=== PATIENT | female | born 1960 | race African-American/Black ===

== ENCOUNTER → 2016-08-28 | Outpatient (CLI) | payer OTHER ==
[~2016-08-28] MED LIST: BRIM0.15 OPB; LATA0.009 OPB; MULT-506 PO; ONDA8TAB7 PO; POLYCAP4 PO; PROC1TAB5 PO; TYLOTC500 PO; VTMD PO; VTMD1000 PO; XLD/500 PO
--- NOTE | 2016-08-28 16:40 | MAMMOGRAPHY REPORT ---
BILATERAL DIGITAL SCREENING MAMMOGRAM TOMOSYNTHESIS WITH CAD: 08/28/2016 CLINICAL HISTORY: Routine screening. Patient has no complaints. TECHNIQUE: Breast tomosynthesis in addition to standard 2D mammography was performed. Current study was also evaluated with a Computer Aided Detection (CAD) system. COMPARISON: No prior exams were available for comparison. BREAST COMPOSITION: There are scattered areas of fibroglandular density in both breasts. FINDINGS: No suspicious masses, calcifications, or areas of architectural distortion are noted in e ither breast. A few scattered bilateral benign-appearing calcifications are noted. An asymmetry se en within the right lateral breast on the cc view has the appearance of normal fibroglandular tissue on the tomosynthesis images as well as on the MLO view. IMPRESSION: ACR BI-RADS CATEGORY 2: BENIGN There is no mammographic evidence of malignancy. A 1 year screening mammogram is recommended. The p atient will receive written notification of the results. Approximately 10% of breast cancers are not detected with mammography. A negative mammographic repor t should not delay biopsy if a clinically suggestive mass is present. Rosa Mata M.D. ah/:08/28/2016 15:10:47 Environmental Coordinator: Varsha OWUSU(R)(M), [facility] letter sent: Normal 1/2 BI-RADS Code: ACR BI-RADS Category 2: Benign
== END | disposition home or self-care (01) ==
LOC: C.MAMM 12:59
PROVIDERS: ATTEND Family Medicine
DX: Z12.31 Encounter for screening mammogram for malignant neoplasm of breast (principal)

== ENCOUNTER → 2016-11-05 | Outpatient (CLI) | payer OTHER ==
[2016-11-05 12:41] LABS: ESTIMATED AVERAGE GLUCOSE 154 mg/dl; HA1C FLAG Normal (Normal)
== END | disposition home or self-care (01) ==
LOC: C.LABSPEC 10:16
PROVIDERS: ATTEND Family Medicine
DX: E11.9 Type 2 diabetes mellitus without complications (principal)

== ENCOUNTER → 2017-01-02 | Outpatient (CLI) | payer OTHER ==
[~2017-01-02] MED LIST changes: +OPTIRAY 320 IV PRN
--- NOTE | 2017-01-02 13:16 | DIAGNOSTIC IMAGING REPORT ---
ABDOMEN AND PELVIS CT WITH IV AND ORAL CONTRAST CT DOSE: HISTORY: Appendiceal carcinoma APPENDIX CA F/U TECHNIQUE: Multiaxial CT images of the abdomen and pelvis were performed following the use of intravenous and oral contrast. COMPARISON STUDY: 08/08/2016 FINDINGS: Lung bases remain clear. Liver continues to show a component of central biliary ductal distention as well as several peripheral low-density curvilinear lesions at the hepatic surface. All findings are unchanged. Spleen remains mildly enlarged. The lesion of the posterior margin of the spleen remains essentially unchanged. Continues to have a central calcification. Postoperative changes are again noted in the midline and peripancreatic region. Moderate wall thickening of the mid to distal aspect of the stomach is similar. Postoperative changes consistent with a cholecystectomy, subtotal colectomy, and right lower quadrant ostomy are again noted. The ostomy appears widely patent. Bladder is midline. Pelvic surgical clips are present. There has been no interval change compared to the prior study. Findings of IMPRESSION: Stable evaluation of the abdomen and pelvis. Stable postoperative change. Several low density peritoneal lesions which have been described previously. These are unchanged and nonprogressive. Electronically signed by: Ayush Simons M.D. 01/02/2017 1:14 PM Dictated Date/Time: 01/02/2017 1:07 PM
--- NOTE | 2017-01-02 13:26 | DIAGNOSTIC IMAGING REPORT ---
CT OF THE CHEST WITH IV CONTRAST CLINICAL HISTORY: Appendiceal carcinoma. COMPARISON STUDY: Chest CT August 08, 2016 TECHNIQUE: Following IV administration of 118 mL of Optiray-320, helical axial images of the chest were obtained. Images were viewed in the axial, sagittal and coronal planes. IV contrast was administered without complication. CT DOSE: 424.83 mGy.cm FINDINGS: No enlarged axillary, mediastinal or hilar lymph nodes are present. There is no pericardial effusion. Mild cardiomegaly is noted. There are no suspicious pulmonary nodules. A 3 mm subpleural right upper lobe nodule on image 96 of 256 is unchanged since prior exams. This is benign. Groundglass left lower lobe opacity reflects atelectasis. The abdomen and pelvis will be reported separately. IMPRESSION: No evidence of metastatic disease within the chest. Electronically signed by: Dillan Buckley M.D. 01/02/2017 1:25 PM Dictated Date/Time: 01/02/2017 1:07 PM
== END | disposition home or self-care (01) ==
LOC: C.CTS 10:28
PROVIDERS: ATTEND Internal Medicine Hematology & Oncology
DX: Z85.89 Personal history of malignant neoplasm of other organs and systems (principal)

== ENCOUNTER → 2018-01-07 | Outpatient (CLI) | payer OTHER ==
[~2018-01-07] MED LIST changes: -OPTIRAY 320 IV PRN; +PROC10TA PO; -PROC1TAB5 PO
[2018-01-07 14:54] LABS: HEMATOCRIT 38.3 % (37-47); HEMOGLOBIN 12.1 g/dL (12.0-16.0); MEAN CORPUSCULAR HEMOGLOBIN 25.9 pg (25-34); RED CELL DISTRIBUTION WIDTH CV 16.3 % (11.5-14.5); RED CELL DISTRIBUTION WIDTH SD 49.2 fL (36.4-46.3); WHITE BLOOD COUNT 4.42 K/uL (4.8-10.8)
[2018-01-07 15:04] LABS: ALBUMIN 3.5 gm/dl (3.4-5.0); ALKALINE PHOSPHATASE 282 U/L (45-117); ALT/SGPT 22 U/L (12-78); AST/SGOT 26 U/L (15-37); BLOOD UREA NITROGEN 11 mg/dl (7-18); CALCIUM 8.6 mg/dl (8.5-10.1); CARBON DIOXIDE 26 mmol/L (21-32); CREATININE 1.18 mg/dl (0.60-1.20); GLUCOSE 133 mg/dl (70-99); POTASSIUM 3.8 mmol/L (3.5-5.1); SODIUM 137 mmol/L (136-145)
[2018-01-07 15:31] LABS: BASO % 0.5 %; BASO ABS # 0.02 K/uL (0-0.2); EOS % 5.2 %; EOS ABS # 0.22 K/uL (0-0.5); IG# 0.01 K/uL (0.00-0.02); LYMPH % 29.1 %; LYMPH ABS # 1.23 K/uL (1.2-3.4); MEAN CORPUSCULAR HGB CONC 31.6 g/dl (32-36); MEAN PLATELET VOLUME 10.1 fL (7.4-10.4); MONO % 13.5 %; MONO ABS # 0.57 K/uL (0.11-0.59); NEUT % 51.5 %; NEUT ABS # 2.17 K/uL (1.4-6.5); PLATELET COUNT 85 K/uL (130-400)
== END | disposition home or self-care (01) ==
LOC: C.LABSPEC 14:23
PROVIDERS: ATTEND Internal Medicine Hematology & Oncology
DX: C18.1 Malignant neoplasm of appendix (principal)

== ENCOUNTER → 2018-03-10 | Outpatient (CLI) | payer OTHER ==
[2018-03-10 10:12] LABS: MEAN CORPUSCULAR HGB CONC 31.2 g/dl (32-36)
[2018-03-10 10:31] LABS: ALBUMIN 3.7 gm/dl (3.4-5.0); ALKALINE PHOSPHATASE 272 U/L (45-117); ALT/SGPT 24 U/L (12-78); AST/SGOT 29 U/L (15-37); BLOOD UREA NITROGEN 18 mg/dl (7-18); CALCIUM 9.1 mg/dl (8.5-10.1); CARBON DIOXIDE 26 mmol/L (21-32); GLUCOSE 116 mg/dl (70-99); POTASSIUM 4.3 mmol/L (3.5-5.1); SODIUM 138 mmol/L (136-145); TOTAL PROTEIN 8.2 gm/dl (6.4-8.2)
[2018-03-10 10:38] LABS: HEMATOCRIT 39.8 % (37-47); HEMOGLOBIN 12.4 g/dL (12.0-16.0); MEAN CELL VOLUME 82.9 fL (80-100); MEAN CORPUSCULAR HEMOGLOBIN 25.8 pg (25-34); RED CELL DISTRIBUTION WIDTH SD 48.5 fL (36.4-46.3); WHITE BLOOD COUNT 4.57 K/uL (4.8-10.8)
[2018-03-10 10:40] LABS: PLATELET COUNT 73 K/uL (130-400)
[2018-03-10 10:41] LABS: BASO % 0.4 %; BASO ABS # 0.02 K/uL (0-0.2); EOS % 5.5 %; EOS ABS # 0.25 K/uL (0-0.5); IG# 0.01 K/uL (0.00-0.02); LYMPH % 27.8 %; LYMPH ABS # 1.27 K/uL (1.2-3.4); MONO % 12.3 %; MONO ABS # 0.56 K/uL (0.11-0.59); NEUT % 53.8 %; NEUT ABS # 2.46 K/uL (1.4-6.5)
== END | disposition home or self-care (01) ==
LOC: C.LABSPEC 09:53
PROVIDERS: ATTEND Internal Medicine Hematology & Oncology
DX: C18.1 Malignant neoplasm of appendix (principal)

== ENCOUNTER → 2018-03-30 | Outpatient (CLI) | payer OTHER ==
[2018-03-30 09:38] LABS: MEAN CORPUSCULAR HGB CONC 30.7 g/dl (32-36)
[2018-03-30 09:48] LABS: HEMATOCRIT 38.1 % (37-47); HEMOGLOBIN 11.7 g/dL (12.0-16.0); MEAN CELL VOLUME 83.7 fL (80-100); MEAN CORPUSCULAR HEMOGLOBIN 25.7 pg (25-34); RED CELL DISTRIBUTION WIDTH SD 48.9 fL (36.4-46.3); WHITE BLOOD COUNT 3.45 K/uL (4.8-10.8)
[2018-03-30 09:57] LABS: PLATELET COUNT 83 K/uL (130-400)
[2018-03-30 09:59] LABS: BASO % 0.3 %; BASO ABS # 0.01 K/uL (0-0.2); EOS % 8.4 %; EOS ABS # 0.29 K/uL (0-0.5); LYMPH % 30.4 %; LYMPH ABS # 1.05 K/uL (1.2-3.4); MONO % 13.3 %; MONO ABS # 0.46 K/uL (0.11-0.59); NEUT % 47.6 %; NEUT ABS # 1.64 K/uL (1.4-6.5)
[2018-03-30 10:00] LABS: ALBUMIN 3.4 gm/dl (3.4-5.0); ALKALINE PHOSPHATASE 301 U/L (45-117); ALT/SGPT 25 U/L (12-78); AST/SGOT 30 U/L (15-37); BLOOD UREA NITROGEN 14 mg/dl (7-18); CALCIUM 8.5 mg/dl (8.5-10.1); CARBON DIOXIDE 25 mmol/L (21-32); CREATININE 1.16 mg/dl (0.60-1.20); GLUCOSE 128 mg/dl (70-99); POTASSIUM 4.2 mmol/L (3.5-5.1); SODIUM 137 mmol/L (136-145); TOTAL PROTEIN 7.9 gm/dl (6.4-8.2)
== END | disposition home or self-care (01) ==
LOC: C.LABSPEC 08:56
PROVIDERS: ATTEND Internal Medicine Hematology & Oncology
DX: C18.1 Malignant neoplasm of appendix (principal)

== ENCOUNTER 2019-05-13 19:58 | Inpatient (IN) ==
[2019-05-13] MEDS ORDERED: TRANEXAMIC ACID 10% SOLN for EPISTAXIS TOP ONE ×2 (21:30→21:45)
[2019-05-13 21:45] LABS: Albumin Level 3.3 gm/dl (3.4-5.0); BUN Creatinine Ratio 11.2 (10-20); Calcium 9.2 mg/dl (8.5-10.1); Creatinine Clr Calc Pharmacy 41.8 ml/min; Est GFR (African American) 55.3; Est GFR (Non-African American) 47.7; Potassium 3.8 mmol/L (3.5-5.1)
[2019-05-13 21:48] LABS: Albumin Globulin Ratio 0.7 (0.9-2); Bilirubin,Total 0.7 mg/dl (0.2-1); Globulin 4.6 gm/dl (2.5-4.0); Total Protein 7.9 gm/dl (6.4-8.2)
[2019-05-13 21:50] LABS: Partial Thromboplastin Ratio 1.4; Partial Thromboplastin Time 38.7 Seconds (21.0-31.0); Prothrombin Time 10.4 Seconds (9.0-12.0)
[2019-05-13 22:13] LABS: Basophils # (auto) 0.01 K/uL (0-0.2); Basophils % (auto) 0.4 %; Hematocrit (blood only) 36.4 % (37-47); Hemoglobin 11.4 g/dL (12.0-16.0); Immature Granulocytes # (auto) 0.01 K/uL (0.00-0.02); Immature Granulocytes % (auto) 0.4 %; Lymphocytes # (auto) 0.38 K/uL (1.2-3.4); Mean Corpuscular Hemoglobin 25.7 pg (25-34); Mean Corpuscular Hgb Conc 31.3 g/dL (32-36); Monocytes # (auto) 0.04 K/uL (0.11-0.59); Monocytes % (auto) 1.5 %; Neutrophils # (auto) 2.27 K/uL (1.4-6.5); Neutrophils % (auto) 83.7 %; Platelet Count 3 K/uL (130-400); Platelet Estimate SIGNIFIC DECREASED (Normal); RDW Coefficient of Variation 17.3 % (11.5-14.5); Red Blood Count 4.44 M/uL (4.2-5.4); White Blood Count 2.71 K/uL (4.8-10.8)
[2019-05-13] MEDS ORDERED: SODIUM CHLORIDE 0.9% 250 ML IV PRN (22:57)
--- NOTE | 2019-05-14 00:19 | History & Physical Report ---
Date of Service May 14, 2019 Assessment & Plan (1) Thrombocytopenia: 58 yo F here with symptomatic thrombocytopenia - hemodynamically stable, normotensive, afebrile. Here for transfusion and monitoring. 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 (2) Stomal bleeding: History of Present Illness Chief Complaint: thrombocytopenia, bleeding from stoma Primary Care Provider: Robert Hernández 58 yo F on maintenance chemotherapy for appendiceal cancer here for abnormal lab value of platelets of 2-3. Also with bleeding from her stoma. Began yesterday. Sent here from cancer center, is currently on course of decadron as well. Tranexamic acid applied topically to stoma with good effect. Labs otherwise remarkable for anemia at baseline, inr 1.0, On Awake Counselor 1.25 (baseline is 1.03). Allergies Allergy/AdvReac Type Severity Reaction Status Date / Time pineapple Allergy Severe anaphylaxis Verified 05/13/19 23:08 [place] And Derivatives Allergy Intermediate Hives Verified 05/13/19 23:08 clarithromycin Allergy Intermediate HIVES Verified 05/13/19 23:08 naproxen Allergy Intermediate Hives Verified 05/13/19 23:08 Penicillins Allergy Intermediate Hives Verified 05/13/19 23:08 tomato Allergy Intermediate HIVES, Verified 05/13/19 23:08 THROAT TIGHTENS latex Allergy Mild RASH Verified 05/13/19 23:08 Cantaloupe Allergy Intermediate HIVES, Uncoded 05/13/19 23:08 THROAT TIGHTENS Home Medications Home Medications Medication Instructions Recorded Confirmed Type Unknown Chemo Drugs 1 dose IV DIRECTED 05/12/19 05/13/19 History acetaminophen [Tylenol Extra 1,000 mg PO DIRECTED PRN 05/12/19 05/13/19 History Strength] brimonidine [Alphagan P] 1 drp OPB TID 05/12/19 05/13/19 History cholecalciferol (vitamin D3) 2,000 unit PO DAILY 05/12/19 05/13/19 History [Vitamin D3] latanoprost 1 drp OPB HS 05/12/19 05/13/19 History multivitamin 1 tab PO DAILY 05/12/19 05/13/19 History ondansetron HCl [Zofran] 8 mg PO DIRECTED PRN 05/12/19 05/13/19 History polysaccharide iron complex 150 mg PO DAILY 05/12/19 05/13/19 History [iFerex 150] prochlorperazine maleate 10 mg PO Q6H PRN 05/12/19 05/13/19 History [Compazine] dexamethasone 40 mg PO QDB 05/13/19 05/13/19 History Past Med/Surg History Medical History Stomal bleeding (Acute) High cholesterol (Chronic) Hypomagnesemia (Chronic) Ileostomy care (Acute) Mucinous adenocarcinoma of appendix (Chronic ~03/2013) Pancreatitis (Acute) Primary cancer of appendix Surgical History Hx of colectomy (Resolved) Social History Preferred Language: [place] Communication Ability: Effective Event Attendant Required: No Beliefs That Will Affect Care: [employer] Current Living Situation: Family Current Living Situation Comment: lives with son Other Information That Helps Us Care for You: No Feels Safe at Home: Yes Safety Concerns: Feels Safe At This Time Smoking Status: Never smoker Do You Dip or Chew Tobacco: No ; Second Hand Exposure: No ; Tobacco Cessation Education Requested by Patient: No Hx Alcohol Use: No Hx Substance Use: No Review of Systems Review of Systems: All systems reviewed & are unremarkable except as noted in HPI & below pt does not endorse pain at her stoma or in her abdomen, denies bleeding elsewhere inc melena/hematuria/hematochezia or bloody emesis, says she otherwise is feeling well. Physical Exam Physical Exam: Vitals noted and reviewed, as above GENERAL: sitting up in bed, no acute distress HEAD: normocephalic atraumatic, MMM ENT: sclerae normal, trachea midline RESP: normal work of breathing, acyanotic, clear breath sounds CV: regular rate and rhythm, no rubs or gallops ABDOMEN: nondistended, some mild oozing from stoma with dressing in tact SKIN: no rashes or jaundice PSYCH: appropriate mood and affect Results & Data Vital Signs (Past 12 Hours) Vital Signs Temp Pulse Resp BP Pulse Ox 05/13/19 23:58 36.7 C 69 22 157/88 H 100 05/13/19 23:30 72 20 163/93 H 100 05/13/19 23:00 74 23 153/93 H 05/13/19 22:50 78 25 H 100 05/13/19 22:40 67 21 100 05/13/19 22:30 67 19 147/86 H 99 05/13/19 22:20 68 20 99 05/13/19 22:10 73 17 99 05/13/19 22:00 75 21 156/94 H 100 05/13/19 21:50 71 26 H 100 05/13/19 21:40 72 21 100 05/13/19 21:31 79 16 162/84 H 100 05/13/19 21:30 82 24 100 05/13/19 21:20 84 20 99 05/13/19 21:10 78 24 100 05/13/19 21:00 74 21 149/91 H 05/13/19 20:50 79 22 100 05/13/19 20:46 78 21 99 05/13/19 20:43 76 21 168/91 H 99 05/13/19 20:09 36.7 C 87 18 164/85 H 98 Laboratory Results 05/13/19 05/13/19 05/13/19 Range/Units 21:29 20:46 20:46 WBC (4.8-10.8) K/uL RBC (4.2-5.4) M/uL Hgb (12.0-16.0) g/dL Hct (37-47) % MCV (80-100) fL MCH (25-34) pg MCHC (32-36) g/dL RDW Std Deviation (36.4-46.3) fL RDW Coeff of Veda (11.5-14.5) % Plt Count (130-400) K/uL Immature Gran % (Auto) % Neut % (Auto) % Lymph % (Auto) % [place] % (Auto) % Eos % (Auto) % Baso % (Auto) % Immature Gran # (Auto) (0.00-0.02) K/uL Neut # (Auto) (1.4-6.5) K/uL Lymph # (Auto) (1.2-3.4) K/uL [place] # (Auto) (0.11-0.59) K/uL Eos # (Auto) (0-0.5) K/uL Baso # (Auto) (0-0.2) K/uL Platelet Estimate (Normal) PT 10.4 (9.0-12.0) Seconds INR 1.0 (0.9-1.1) APTT 38.7 H (21.0-31.0) Seconds PTT Ratio 1.4 Sodium 139 (136-145) mmol/L Potassium 3.8 (3.5-5.1) mmol/L Chloride 107 (98-107) mmol/L Carbon Dioxide 24 (21-32) mmol/L Anion Gap 8.0 (3-11) BUN 14 (7-18) mg/dl Creatinine 1.25 H (0.6-1.2) mg/dl Est Cr Clr Drug Dosing 41.8 ml/min Est GFR ( Amer) 55.3 Est GFR (Non-Af Amer) 47.7 BUN/Creatinine Ratio 11.2 (10-20) Glucose 299 H (70-99) mg/dl Calcium 9.2 (8.5-10.1) mg/dl Total Bilirubin 0.7 (0.2-1) mg/dl AST 30 (15-37) U/L ALT 21 (12-78) U/L Alkaline Phosphatase 333 H (45-117) U/L Total Protein 7.9 (6.4-8.2) gm/dl Albumin 3.3 L (3.4-5.0) gm/dl Globulin 4.6 H (2.5-4.0) gm/dl Albumin/Globulin Ratio 0.7 L (0.9-2) Blood Type Pending Antibody Screen Pending 05/13/19 Range/Units 20:46 WBC 2.71 L (4.8-10.8) K/uL RBC 4.44 (4.2-5.4) M/uL Hgb 11.4 L (12.0-16.0) g/dL Hct 36.4 L (37-47) % MCV 82.0 (80-100) fL MCH 25.7 (25-34) pg MCHC 31.3 L (32-36) g/dL RDW Std Deviation 52.0 H (36.4-46.3) fL RDW Coeff of Veda 17.3 H (11.5-14.5) % Plt Count 3 L* (130-400) K/uL Immature Gran % (Auto) 0.4 % Neut % (Auto) 83.7 % Lymph % (Auto) 14.0 % [place] % (Auto) 1.5 % Eos % (Auto) 0.0 % Baso % (Auto) 0.4 % Immature Gran # (Auto) 0.01 (0.00-0.02) K/uL Neut # (Auto) 2.27 (1.4-6.5) K/uL Lymph # (Auto) 0.38 L (1.2-3.4) K/uL [place] # (Auto) 0.04 L (0.11-0.59) K/uL Eos # (Auto) 0.00 (0-0.5) K/uL Baso # (Auto) 0.01 (0-0.2) K/uL Platelet Estimate SIGNIFIC DECREASED (Normal) PT (9.0-12.0) Seconds INR (0.9-1.1) APTT (21.0-31.0) Seconds PTT Ratio Sodium (136-145) mmol/L Potassium (3.5-5.1) mmol/L Chloride (98-107) mmol/L Carbon Dioxide (21-32) mmol/L Anion Gap (3-11) BUN (7-18) mg/dl Creatinine (0.6-1.2) mg/dl Est Cr Clr Drug Dosing ml/min Est GFR ( Amer) Est GFR (Non-Af Amer) BUN/Creatinine Ratio (10-20) Glucose (70-99) mg/dl Calcium (8.5-10.1) mg/dl Total Bilirubin (0.2-1) mg/dl AST (15-37) U/L ALT (12-78) U/L Alkaline Phosphatase (45-117) U/L Total Protein (6.4-8.2) gm/dl Albumin (3.4-5.0) gm/dl Globulin (2.5-4.0) gm/dl Albumin/Globulin Ratio (0.9-2) Blood Type Antibody Screen Medications Administered Current Inpatient Medications Sodium Chloride (Nss) 250 mls @ 15 mls/hr IV .[id number] PRN PRN Reason: For Transfusion Stop: 06/12/19 22:56 Supervising Physician Co-Signing Physician Notes Attending addendum: I have physically seen this patient, have supervised the medical residents activities, and agree with the H&P unless as otherwise noted. Assessment and Plan: Stomal oozing/secondary to severe thrombocytopenia- Admit to monitored bed. Platelets 3 upon admission. Plan to transfuse 2 units now, and repeat laboratories 1 hour later. Consult hematology/oncology. Follow H&H serially, patient does not appear to need PRBCs at this time. Remainder of orders and notations as noted. PG Care Time/CCT Total # of Minutes Spent Total Time Spent with Patient: Total time spent is greater than 50% in coordination of care (as documented) at patient's floor/unit and/or counseling patient: Resident Activity Tracking Resident Involvement: Resident Care Provided Care Provided: Adult Hospital Medicine
--- NOTE | 2019-05-14 01:06 | Emergency Department Note ---
Entered by Coretta Galvez acting as a scribe for Abdiaziz Dyer M.D. History of Present Illness General Chief complaint: Bleeding Stated complaint: STOMA BLEEDING, VERY LOW PLATELETS Source: patient History of Present Illness Onset (ago): day(s) 1 Location: abdomen and right Pain Consistency: + constant Associated symptoms: + denies other symptoms (denies abdominal pain and recent trauma); no fever/chills and no nausea/vomiting Treatments prior to arrival: other (steriod) The patient is a 58 year old female who presents to the Emergency Room with complaints of bleeding from her ileostomy site in the lower right abdominal quadrant. She reports that the bleeding first started last night. She has a history of cancer of the appendix, and is currently receiving chemotherapy treatment. She was scheduled to receive a dose today, but her nose started bleeding at the appointment and her doctor advised against it. She started a new steroid today as well. She has a low platelet count of 3, which also just started yesterday. She denies nausea, vomiting, fever, abdominal pain and recent trauma. Home Medications Home Medications Medication Instructions Recorded Confirmed Type Unknown Chemo Drugs 1 dose IV DIRECTED 05/12/19 05/13/19 History acetaminophen [Tylenol Extra 1,000 mg PO DIRECTED PRN 05/12/19 05/13/19 History Strength] brimonidine [Alphagan P] 1 drp OPB TID 05/12/19 05/13/19 History cholecalciferol (vitamin D3) 2,000 unit PO DAILY 05/12/19 05/13/19 History [Vitamin D3] latanoprost 1 drp OPB HS 05/12/19 05/13/19 History multivitamin 1 tab PO DAILY 05/12/19 05/13/19 History ondansetron HCl [Zofran] 8 mg PO DIRECTED PRN 05/12/19 05/13/19 History polysaccharide iron complex 150 mg PO DAILY 05/12/19 05/13/19 History [iFerex 150] prochlorperazine maleate 10 mg PO Q6H PRN 05/12/19 05/13/19 History [Compazine] dexamethasone 40 mg PO QDB 05/13/19 05/13/19 History Allergies Allergy/AdvReac Type Severity Reaction Status Date / Time pineapple Allergy Severe anaphylaxis Verified 05/13/19 23:08 [place] And Derivatives Allergy Intermediate Hives Verified 05/13/19 23:08 clarithromycin Allergy Intermediate HIVES Verified 05/13/19 23:08 naproxen Allergy Intermediate Hives Verified 05/13/19 23:08 Penicillins Allergy Intermediate Hives Verified 05/13/19 23:08 tomato Allergy Intermediate HIVES, Verified 05/13/19 23:08 THROAT TIGHTENS latex Allergy Mild RASH Verified 05/13/19 23:08 Cantaloupe Allergy Intermediate HIVES, Uncoded 05/13/19 23:08 THROAT TIGHTENS Past Med/Surg History Medical History Stomal bleeding (Acute) High cholesterol (Chronic) Hypomagnesemia (Chronic) Ileostomy care (Acute) Mucinous adenocarcinoma of appendix (Chronic ~03/2013) Pancreatitis (Acute) Primary cancer of appendix Surgical History Hx of colectomy (Resolved) Social History Preferred Language: Danish Feels Safe at Home: Yes Smoking Status: Never smoker Review of Systems See HPI for pertinent positives & negatives. and A total of 10 systems reviewed and were otherwise negative Physical Exam Vital Signs Vital Signs - 24 hr 05/13/19 19:58 05/13/19 20:09 05/13/19 20:43 Temperature 36.7 C Temperature Source Oral Sepsis Recent Fever Within 48 Hours No Sepsis New/Unexplained Change in Mental Status No Sepsis Action Taken by Nursing No Action Required Pulse Rate 87 76 Pulse Rate from SpO2 Sensor 77 Respiratory Rate 18 21 Blood Pressure 164/85 H 168/91 H Blood Pressure Mean 111 116 Blood Pressure Position Pulse Oximetry 98 99 Oxygen Delivery Method Room Air Room Air Oxygen Flow Rate 05/13/19 20:46 05/13/19 20:50 05/13/19 21:00 Temperature Temperature Source Sepsis Recent Fever Within 48 Hours Sepsis New/Unexplained Change in Mental Status Sepsis Action Taken by Nursing Pulse Rate 78 79 74 Pulse Rate from SpO2 Sensor 78 77 75 Respiratory Rate 21 22 21 Blood Pressure 149/91 H Blood Pressure Mean 110 Blood Pressure Position Pulse Oximetry 99 100 100 Oxygen Delivery Method Oxygen Flow Rate 05/13/19 21:10 05/13/19 21:20 05/13/19 21:30 Temperature Temperature Source Sepsis Recent Fever Within 48 Hours Sepsis New/Unexplained Change in Mental Status Sepsis Action Taken by Nursing Pulse Rate 78 84 82 Pulse Rate from SpO2 Sensor 77 84 83 Respiratory Rate 24 20 24 Blood Pressure Blood Pressure Mean Blood Pressure Position Pulse Oximetry 100 99 100 Oxygen Delivery Method Oxygen Flow Rate 05/13/19 21:31 05/13/19 21:40 05/13/19 21:50 Temperature Temperature Source Sepsis Recent Fever Within 48 Hours Sepsis New/Unexplained Change in Mental Status Sepsis Action Taken by Nursing Pulse Rate 79 72 71 Pulse Rate from SpO2 Sensor 80 72 71 Respiratory Rate 16 21 26 H Blood Pressure 162/84 H Blood Pressure Mean 110 Blood Pressure Position Pulse Oximetry 100 100 100 Oxygen Delivery Method Oxygen Flow Rate 05/13/19 22:00 05/13/19 22:10 05/13/19 22:20 Temperature Temperature Source Sepsis Recent Fever Within 48 Hours Sepsis New/Unexplained Change in Mental Status Sepsis Action Taken by Nursing Pulse Rate 75 73 68 Pulse Rate from SpO2 Sensor 75 73 68 Respiratory Rate 21 17 20 Blood Pressure 156/94 H Blood Pressure Mean 114 Blood Pressure Position Pulse Oximetry 100 99 99 Oxygen Delivery Method Oxygen Flow Rate 05/13/19 22:30 05/13/19 22:40 05/13/19 22:50 Temperature Temperature Source Sepsis Recent Fever Within 48 Hours Sepsis New/Unexplained Change in Mental Status Sepsis Action Taken by Nursing Pulse Rate 67 67 78 Pulse Rate from SpO2 Sensor 67 68 78 Respiratory Rate 19 21 25 H Blood Pressure 147/86 H Blood Pressure Mean 106 Blood Pressure Position Pulse Oximetry 99 100 100 Oxygen Delivery Method Oxygen Flow Rate 05/13/19 23:00 05/13/19 23:30 05/13/19 23:58 Temperature 36.7 C Temperature Source Oral Sepsis Recent Fever Within 48 Hours Sepsis New/Unexplained Change in Mental Status Sepsis Action Taken by Nursing Pulse Rate 74 72 69 Pulse Rate from SpO2 Sensor 74 71 Respiratory Rate 23 20 22 Blood Pressure 153/93 H 163/93 H 157/88 H Blood Pressure Mean 113 116 111 Blood Pressure Position Semi-fowlers Pulse Oximetry 100 100 100 Oxygen Delivery Method Room Air Oxygen Flow Rate 0 GENERAL: Awake, alert, in no distress HENT: Normocephalic, atraumatic. EYES: Normal conjunctiva. Sclera non-icteric. RESPIRATORY: Clear to auscultation. No wheezes. Normal respiratory effort. CARDIAC: Right upper chest wall port. Normal rate. Normal rhythm. Extremities warm and well perfused. GI: Right abdominal ileostomy. [place] with mild, diffuse bloody oozing. Non- tender. Healed abdominal surgical scars. Soft, non-distended. No tenderness to palpation. MUSCULOSKELETAL: Atraumatic. Chest examination reveals no tenderness. LOWER EXTREMITIES: Calves are equal size bilaterally and non-tender. No edema NEURO: Normal sensorium. No sensory or motor deficits noted. No facial droop. SKIN: Warm and dry. No jaundice noted. Course 2124: Past medical records reviewed. The patient was evaluated in room C01B. A complete history and physical exam was performed. 2254: I consulted Dr. Carlisle, oncologist, who recommends transfusion for the patient. 2317: I spoke to Dr. Monaco, general surgery. He had no additional recommendations 2329: I contacted Dr. Nava, [facility] hospitalist, who agreed to take over care of the patient. The patient is agreeable to staying for further evaluation. Consultations Consultation #1: I consulted Dr. Carlisle, oncologist, who recommends transfu [place]e for the patient. Time: 22:54 Consultation #2: I spoke to Dr. Monaco, general surgery. He had no additional recommendations Time: 23:17 Consultation #3: I contacted Dr. Nava, [facility] hospitalist, who agreed to take over care of the patient. The patient is agreeable to staying for further evaluation. Time: 23:29 Administered Medications Discontinued Medications Tranexamic Acid (Tranexamic Acid 10% Soln For Epistaxis) 500 mg TOP ONE ONE Stop: 05/13/19 21:46 Last Admin: 05/13/19 22:01 Dose: 500 mg Documented by: [id number] Medical Decision Making Differential Diagnosis Differential diagnosis includes: anemia, thrombocytopenia, infection, ischemia, GI bleed, electrolyte abnormality, trauma, perforation among others were considered. Medical Records Attestation: I reviewed the patient's medical records. Home Medications Current Medication List: was personally reviewed by me Laboratory Data Attestation: I reviewed the patient's lab results. Result diagrams: 05/13/19 20:46 05/13/19 20:46 Lab Results 05/13/19 05/13/19 05/13/19 Range/Units 20:46 20:46 20:46 WBC 2.71 L (4.8-10.8) K/uL RBC 4.44 (4.2-5.4) M/uL Hgb 11.4 L (12.0-16.0) g/dL Hct 36.4 L (37-47) % MCV 82.0 (80-100) fL MCH 25.7 (25-34) pg MCHC 31.3 L (32-36) g/dL RDW Std Deviation 52.0 H (36.4-46.3) fL RDW Coeff of Veda 17.3 H (11.5-14.5) % Plt Count 3 L* (130-400) K/uL Immature Gran % (Auto) 0.4 % Neut % (Auto) 83.7 % Lymph % (Auto) 14.0 % Dewitt % (Auto) 1.5 % Eos % (Auto) 0.0 % Baso % (Auto) 0.4 % Immature Gran # (Auto) 0.01 (0.00-0.02) K/uL Neut # (Auto) 2.27 (1.4-6.5) K/uL Lymph # (Auto) 0.38 L (1.2-3.4) K/uL Dewitt # (Auto) 0.04 L (0.11-0.59) K/uL Eos # (Auto) 0.00 (0-0.5) K/uL Baso # (Auto) 0.01 (0-0.2) K/uL Platelet Estimate SIGNIFIC DECREASED (Normal) PT 10.4 (9.0-12.0) Seconds INR 1.0 (0.9-1.1) APTT 38.7 H (21.0-31.0) Seconds PTT Ratio 1.4 Sodium 139 (136-145) mmol/L Potassium 3.8 (3.5-5.1) mmol/L Chloride 107 (98-107) mmol/L Carbon Dioxide 24 (21-32) mmol/L Anion Gap 8.0 (3-11) BUN 14 (7-18) mg/dl Creatinine 1.25 H (0.6-1.2) mg/dl Est Cr Clr Drug Dosing 41.8 ml/min Est GFR ( Amer) 55.3 Est GFR (Non-Af Amer) 47.7 BUN/Creatinine Ratio 11.2 (10-20) Glucose 299 H (70-99) mg/dl Calcium 9.2 (8.5-10.1) mg/dl Total Bilirubin 0.7 (0.2-1) mg/dl AST 30 (15-37) U/L ALT 21 (12-78) U/L Alkaline Phosphatase 333 H (45-117) U/L Total Protein 7.9 (6.4-8.2) gm/dl Albumin 3.3 L (3.4-5.0) gm/dl Globulin 4.6 H (2.5-4.0) gm/dl Albumin/Globulin Ratio 0.7 L (0.9-2) Blood Type Antibody Screen 05/13/19 Range/Units 21:29 WBC (4.8-10.8) K/uL RBC (4.2-5.4) M/uL Hgb (12.0-16.0) g/dL Hct (37-47) % MCV (80-100) fL MCH (25-34) pg MCHC (32-36) g/dL RDW Std Deviation (36.4-46.3) fL RDW Coeff of Veda (11.5-14.5) % Plt Count (130-400) K/uL Immature Gran % (Auto) % Neut % (Auto) % Lymph % (Auto) % [place] % (Auto) % Eos % (Auto) % Baso % (Auto) % Immature Gran # (Auto) (0.00-0.02) K/uL Neut # (Auto) (1.4-6.5) K/uL Lymph # (Auto) (1.2-3.4) K/uL [place]itt # (Auto) (0.11-0.59) K/uL Eos # (Auto) (0-0.5) K/uL Baso # (Auto) (0-0.2) K/uL Platelet Estimate (Normal) PT (9.0-12.0) Seconds INR (0.9-1.1) APTT (21.0-31.0) Seconds PTT Ratio Sodium (136-145) mmol/L Potassium (3.5-5.1) mmol/L Chloride (98-107) mmol/L Carbon Dioxide (21-32) mmol/L Anion Gap (3-11) BUN (7-18) mg/dl Creatinine (0.6-1.2) mg/dl Est Cr Clr Drug Dosing ml/min Est GFR ( Amer) Est GFR (Non-Af Amer) BUN/Creatinine Ratio (10-20) Glucose (70-99) mg/dl Calcium (8.5-10.1) mg/dl Total Bilirubin (0.2-1) mg/dl AST (15-37) U/L ALT (12-78) U/L Alkaline Phosphatase (45-117) U/L Total Protein (6.4-8.2) gm/dl Albumin (3.4-5.0) gm/dl Globulin (2.5-4.0) gm/dl Albumin/Globulin Ratio (0.9-2) Blood Type B Positive Antibody Screen POSITIVE A Blood Pressure Blood Pressure Findings: Elevated blood pressure Blood Pressure Disposition: further management by hospitalist AUBREY Narrative Patient is a 58-year-old female with past medical history including 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 Presents today due to stomal bleeding. Was seen here last night and had some cautery done which improved her bleeding. Discharged home. Outpatient blood work today showed significant thrombocytopenia with a platelet count of 3. Patient states that she did not receive chemotherapy today becuase of her low platelet count. Follows with Dr. Finn locally. Had a episode of nosebleeding that has stopped. Dr. Finn started on high-dose dexamethasone today for the thrombocytopenia with this nose bleed. No recent transfusion. Patient states over the last several hours noted increased bleeding from around her ileostomy site in her right mid abdomen. No trauma. On exam there is no one focal area of bleeding noted. Appears fairly diffuse around the mucosal insertion. Does not appear to be coming from inside the ileostomy itself. Patient is nontender here and it is pink and healthy in appearance. Denies any fever or nausea or vomiting. Believe this is likely more of a sequelae of her thrombocytopenia. Did try some topical TXA to see if this would help control the bleeding. Gauze soaked TXA was placed over and around the ileostomy site for 30 minutes. After this the gauze was removed and hemostasis seemed to be achieved. After several minutes however, there was continued oozing from the site. Some gauze was replaced around this. Discussed with both hematology oncology Dr. Dozier and general surgery Dr. Owen for additional recommendations. I doubt this again this is acutely a GI bleed or necrosis of the ileostomy site itself. Dr. Gonsalez recommended transfusion and the patient was consented to her the platelets were ordered. Surgery had no other specific recommendations as there is no focal site of bleeding that could be ligated at this point. Feel that continued observation for transfusion and monitoring of her condition site bruising is recommended and discussed with the hospitalist. Hemoglobin appears fairly stable. Impression & Plan Thrombocytopenia, Hemorrhage from ileostomy Critical Care Time Critical Care Time: Yes Total Critical Care Time: 38 I have personally spent 38 minutes of critical care time in the direct management of this patient. This includes bedside care, interpretation of diagnostic studies, and testing, discussion with consultants, patient, and family members, and other required patient management activities. This 38 minutes is in excess of all separately billable procedures. Discharge Plan Visit Data *Final* Discharge Date/Time: 05/14/19 00:37 Chief Complaint: Bleeding Stated Complaint: STOMA BLEEDING, VERY LOW PLATELETS ED Provider: Abdiaziz Dyer Discharge Problem: Thrombocytopenia, Hemorrhage from ileostomy Patient Disposition: Admitted As Inpatient Discharge Instructions Interventions: ED Discharge Assessment Last Done: 05/14/19 00:37 The scribe's documentation has been prepared under my direction and personally reviewed by me in its entirety. I confirm that the note above accurately reflects all work, treatment, procedures, and medical decision making performed by me.
[2019-05-14] MEDS ORDERED: PROCHLORPERAZINE MALEATE 10 MG TAB PO PRN (01:25)
[2019-05-14] MEDS ORDERED: [UNRECOGNIZED DRUG - OTHER] IV SCH (01:25)
[2019-05-14] MEDS ORDERED: ALUMINUM/MAGNESIUM SUSP 30 ML UDC PO PRN (01:25)
[2019-05-14] MEDS ORDERED: ACETAMINOPHEN 500 MG TAB PO PRN (01:25)
[2019-05-14] MEDS ORDERED: POLYETHYLENE (MIRALAX) 17 GM PACK PO PRN (01:25)
[2019-05-14] MEDS ORDERED: MAGNESIUM HYDROXIDE SUSP 30 ML UDC PO PRN (01:25)
[2019-05-14] MEDS ORDERED: ZOLPIDEM TARTRATE 5 MG TAB PO PRN (01:25)
[2019-05-14] MEDS ORDERED: ONDANSETRON 8 MG TABLET PO PRN (01:25)
[2019-05-14] MEDS ORDERED: SODIUM CHLORIDE 0.9% 250 ML IV PRN (02:37)
[2019-05-14] MEDS: ONDANSETRON INJ 2 MG/ML 2 ML VIAL IV PRN (05:37)
[2019-05-14] MEDS: dexAMETHasone 4 MG TAB PO SCH (08:27)
[2019-05-14] MEDS: MULTIVITAMIN TAB PO SCH (08:30)
[2019-05-14] MEDS: IRON POLYSACCHARIDE COMPLEX 150 MG CAPSULE PO SCH (08:30)
[2019-05-14] MEDS: CHOLECALCIFEROL 1,000 UNITS TAB PO SCH (08:31)
[2019-05-14 09:20] LABS: BUN Creatinine Ratio 15.6 (10-20); Calcium 9.3 mg/dl (8.5-10.1); Creatinine Clr Calc Pharmacy 50.5 ml/min; Est GFR (African American) 69.9; Est GFR (Non-African American) 60.3; Mean Corpuscular Hgb Conc 31.5 g/dL (32-36); Platelet Count 4 K/uL (130-400); Potassium 3.8 mmol/L (3.5-5.1)
[2019-05-14 09:21] LABS: Hematocrit (blood only) 31.1 % (37-47); Hemoglobin 9.8 g/dL (12.0-16.0); Immature Granulocytes # (auto) 0.02 K/uL (0.00-0.02); Immature Granulocytes % (auto) 0.2 %; Lymphocytes # (auto) 0.37 K/uL (1.2-3.4); Mean Corpuscular Hemoglobin 25.5 pg (25-34); Mean Corpuscular Volume 80.8 fL (80-100); Monocytes % (auto) 3.2 %; Neutrophils # (auto) 8.55 K/uL (1.4-6.5); Neutrophils % (auto) 92.6 %; Platelet Estimate SIGNIFIC DECREASED (Normal); RBC Morphology Unremarkable; RDW Standard Deviation 50.4 fL (36.4-46.3); Red Blood Count 3.85 M/uL (4.2-5.4); White Blood Count 9.24 K/uL (4.8-10.8)
--- NOTE | 2019-05-14 13:22 | Oncology Consultation ---
Date of Consultation May 14, 2019 Assessment & Plan (1) Thrombocytopenia: The degree of her thrombocytopenia and their rapid decline, along with the absence of any obvious provoking factors and her lack of a response to platelet transfusion, are all very strongly suggestive of ITP. There is no specific test for ITP and so the diagnosis is generally made empirically, as a response to immune suppression with high-dose steroids or IVIG is diagnostic. She started a course of Dex 40 mg daily on Thursday. She should continue this same dose once a day today, tomorrow, and Thursday. This regimen is very effective and leads to remission in the majority of patients. Interestingly, her platelets have been low for a while, though not as low as this. That raises the possibility that she actually has chronic ITP, with this event representing a flare. Regardless, as long as she is not bleeding, we can continue with current management. If she starts to develop clinically significant bleeding, we can give her IVIG. We can also try a platelet transfusion in the setting of severe or life-threatening hemorrhage, but patients with ITP generally do not respond to platelets. We should hopefully see her counts start to rise early next week. If she starts to bleed again, please call me and we can make arrangements for IVIG therapy. Present on Admission?: Yes History of Present Illness Reason for Consultation: Thrombocytopenia Appendiceal cancer Attending Physician: Srini Charlton MD History of Present Illness Ms. Vasquez is a 58 year old woman with a history of an appendiceal cancer that was initially diagnosed in 2012 and is now multiply recurrent. Her most recent treatment was maintenance therapy with single-agent Avastin, though she has not received a dose since early March secondary to proteinuria. She had routine lab work in our office on 05/12 that revealed a platelet count of 2K. Prior to that, her platelets have run low (in the 50-100K range) since at least 2016, a finding that was attributed to treatment-related marrow toxicity. She was given a prescription for high-dose dexamethasone by my partner Dr. Licona to empirically treat ITP. She took her first of 4 doses yesterday. However, while at work, she noticed bright red blood in her ostomy bag and so came to the ER. There, she had some topical treatments which have slowed the bleeding. She was also given a platelet transfusion but did not respond. She denies any recent infections, fevers, or sweats. She denies any new medications, other than the Dexamethasone, and does not take any supplements or non-prescription remedies. She denies any bleeding other than from her ostomy. She has no pain and denies any headaches, vision changes, or abdominal symptoms. Allergies Allergy/AdvReac Type Severity Reaction Status Date / Time pineapple Allergy Severe anaphylaxis Verified 05/13/19 23:08 [place] And Derivatives Allergy Intermediate Hives Verified 05/13/19 23:08 clarithromycin Allergy Intermediate HIVES Verified 05/13/19 23:08 naproxen Allergy Intermediate Hives Verified 05/13/19 23:08 Penicillins Allergy Intermediate Hives Verified 05/13/19 23:08 tomato Allergy Intermediate HIVES, Verified 05/13/19 23:08 THROAT TIGHTENS latex Allergy Mild RASH Verified 05/13/19 23:08 Cantaloupe Allergy Intermediate HIVES, Uncoded 05/13/19 23:08 THROAT TIGHTENS Home Medications Home Medications Medication Instructions Recorded Confirmed Type Unknown Chemo Drugs 1 dose IV DIRECTED 05/12/19 05/13/19 History acetaminophen [Tylenol Extra 1,000 mg PO DIRECTED PRN 05/12/19 05/13/19 History Strength] brimonidine [Alphagan P] 1 drp OPB TID 05/12/19 05/13/19 History cholecalciferol (vitamin D3) 2,000 unit PO DAILY 05/12/19 05/13/19 History [Vitamin D3] latanoprost 1 drp OPB HS 05/12/19 05/13/19 History multivitamin 1 tab PO DAILY 05/12/19 05/13/19 History ondansetron HCl [Zofran] 8 mg PO DIRECTED PRN 05/12/19 05/13/19 History polysaccharide iron complex 150 mg PO DAILY 05/12/19 05/13/19 History [iFerex 150] prochlorperazine maleate 10 mg PO Q6H PRN 05/12/19 05/13/19 History [Compazine] dexamethasone 40 mg PO QDB 05/13/19 05/13/19 History Patient History Medical History Stomal bleeding (Acute) High cholesterol (Chronic) Hypomagnesemia (Chronic) Ileostomy care (Acute) Mucinous adenocarcinoma of appendix (Chronic ~03/2013) Pancreatitis (Acute) Primary cancer of appendix Surgical History Hx of colectomy (Resolved) Social History Preferred Language: Wallisian Communication Ability: Effective Rn Relief Charge Required: No Beliefs That Will Affect Care: Orthodox Current Living Situation: Family Current Living Situation Comment: lives with son Other Information That Helps Us Care for You: No Feels Safe at Home: Yes Safety Concerns: Feels Safe At This Time Smoking Status: Never smoker Do You Dip or Chew Tobacco: No ; Second Hand Exposure: No ; Tobacco Cessation Education Requested by Patient: No Hx Alcohol Use: No Hx Substance Use: No Review of Systems Constitutional: no fever and no fatigue Eyes: no worsening vision Ear, Nose, Mouth, Throat: + epistaxis (had a single, self-limited episode on 05/12); no bleeding gums Respiratory: no cough, no dyspnea and no hemoptysis Cardiovascular: no chest pain and no dyspnea on exertion Gastrointestinal: as per Subjective / HPI Genitourinary: no dysuria and no hematuria Musculoskeletal: no back pain and no joint pain Integumentary: no rash, no bleeding lesions and no unusual bruising Neurologic: no localized weakness and no headache(s) Hematologic / Lymphatic: as per Subjective / HPI Physical Exam Constitutional: well nourished and comfortable; no acute distress Eyes: + anicteric sclerae and EOM intact bilaterally ENMT: external ear and nose normal, oropharynx normal Respiratory: normal respiratory effort, lungs clear to auscultation Cardiovascular: RRR, no murmur, no edema Gastrointestinal (Abdomen): Inspection/Auscultation: normal bowel sounds; abdomen not distended Percussion/Palpation: abdomen soft; abdomen nontender Her ostomy is pink and healthy appearing. There is some dark brown stool in the bag, but no bright red blood or obvious melena Musculoskeletal: no cyanosis or clubbing, extremities motor strength 5/5 Skin: no rashes, warm and dry Psychiatric: A+Ox3, euthymic affect Lymphatic: no cervical or axillary lymphadenopathy Results & Data Vital Signs (Past 12 Hours) Vital Signs Temp Pulse Pulse Resp BP BP Pulse Ox 05/14/19 11:00 36.7 C 69 20 145/75 H 97 05/14/19 07:14 81 05/14/19 07:08 37 C 80 18 131/74 97 05/14/19 05:57 36.6 C 73 20 153/81 H 100 05/14/19 05:00 36.6 C 73 20 147/75 H 100 05/14/19 04:04 36.8 C 72 16 144/76 H 98 05/14/19 03:35 36.7 C 72 18 143/68 H 98 05/14/19 03:15 36.7 C 75 20 163/79 H 100 05/14/19 02:54 36.7 C 76 20 158/80 H 100 05/14/19 02:05 36.8 C 86 20 178/95 H 99 05/14/19 01:49 36.6 C 72 20 174/82 H 100 05/14/19 01:30 36.7 C 80 20 174/95 H Laboratory Results Laboratory Tests 04/21/19 05/12/19 05/14/19 14:26 11:15 08:23 WBC 3.64 L 4.56 L 9.24 Hgb 11.7 L 12.2 9.8 L Plt Count 82 L 2 L* 4 L*
--- NOTE | 2019-05-14 16:12 | Hospitalist Progress Note ---
Date of Service May 14, 2019 Assessment & Plan (1) Thrombocytopenia: Discussed with Dr. Gonsalez on 05/14 - Likely ITP. Prior platelets for years have been in the 70-90 range. WILL NOT RESPOND TO FURTHER PLATELETS. - On dexamethasone 40mg PO daily x 4 days (Last day: 05/16) - Hopefully see some platelets rebound by 05/15 or 05/16 - If bleeding, give IvIg. Platelets will not help as she has circulating Ab to platelets. Only give if she is hemorrhaging and can get nothing else. - Monitor plts (2) Hemorrhage from ileostomy: Due to thrombocytopenia from above. In the ED, used tranexamic acid topically which helped. - See above for platelets - Could re-administer tranexamic acid if stoma starts to bleed again - She was carefully instructed to watch the stoma site for additional bleeding or any bruising or lumps (hematoma) in the area. Also instructed on other concerning signs/symptoms of bleeding. Nurse was also instructed on this also. (3) Mucinous adenocarcinoma of appendix: Diagnosed ~6 years ago. Follow[address] with Dr. Licona. Currently in remission getting monthly Avastin infusions. Last one was in early March. Per Dr. Gonsalez, this is not playing a role in her thrombocytopenia. - Plan for treatment on 05/13, though it was held for thrombocytopenia (4) DVT prophylaxis: Holding SCDs and heparin for thrombocytopenia. Subjective Actually feeling fairly well today. Some mild bleeding from around the stoma site, but very mild. Review of Systems Review of Systems: All systems reviewed & are unremarkable except as noted in HPI & below Physical Exam Constitutional: WD/WN, vitals as above Eyes: EOM intact bilaterally; no conjunctival abnormality ENMT: external ear and nose normal, oropharynx normal Neck: trachea midline, no thyromegaly normal visual inspection Respiratory: normal respiratory effort, lungs clear to auscultation no respiratory distress Cardiovascular: RRR, no murmur, no edema Gastrointestinal (Abdomen): Inspection/Auscultation: abdomen normal to inspection and normal bowel sounds; abdomen not distended and no abdominal edema Stoma present with very trace blood around the colostmy bag. No blood seen coming from the stoma itself and no active bleeding around the site. Musculoskeletal: no cyanosis or clubbing, extremities motor strength 5/5 Skin: no rashes, warm and dry Neurologic: moves all extremities and awake Psychiatric: Orientation: alert, oriented to person and cooperative Results & Data Vital Signs (Past 12 Hours) Vital Signs Temp Pulse Pulse Resp BP BP Pulse Ox 05/14/19 16:00 36.7 C 79 16 132/67 96 05/14/19 15:58 36.7 C 79 16 132/67 96 05/14/19 15:39 36.7 C 71 18 127/70 98 05/14/19 15:00 36.7 C 69 20 131/72 99 05/14/19 11:00 36.7 C 69 20 145/75 H 97 05/14/19 07:14 81 05/14/19 07:08 37 C 80 18 131/74 97 05/14/19 05:57 36.6 C 73 20 153/81 H 100 05/14/19 05:00 36.6 C 73 20 147/75 H 100 05/14/19 04:04 36.8 C 72 16 144/76 H 98 PG Care Time/CCT Total # of Minutes Spent Total Time Spent with Patient: Total time spent is greater than 50% in coordination of care (as documented) at patient's floor/unit and/or counseling patient:
[2019-05-14] MEDS: LATANOPROST 0.005% OP SOLN 2.5 ML BTL OPB SCH (20:59)
[2019-05-14] MEDS: HEPARIN 100 UNIT/ML 5ML FLUSH FLUSH PRN (21:02)
[2019-05-15 06:48] LABS: Hematocrit (blood only) 29.7 % (37-47); Hemoglobin 9.2 g/dL (12.0-16.0); Mean Corpuscular Hemoglobin 24.9 pg (25-34); Mean Corpuscular Volume 80.5 fL (80-100); Platelet Count 9 K/uL (130-400); RDW Coefficient of Variation 17.1 % (11.5-14.5); Red Blood Count 3.69 M/uL (4.2-5.4)
[2019-05-15 06:56] LABS: BUN Creatinine Ratio 18.3 (10-20); Calcium 8.5 mg/dl (8.5-10.1); Creatinine Clr Calc Pharmacy 46.4 ml/min; Est GFR (African American) 63.1; Est GFR (Non-African American) 54.5
[2019-05-15 06:57] LABS: Anisocytosis Present; Immature Granulocytes # (auto) 0.01 K/uL (0.00-0.02); Immature Granulocytes % (auto) 0.1 %; Lymphocytes # (auto) 0.36 K/uL (1.2-3.4); Monocytes # (auto) 0.22 K/uL (0.11-0.59); Monocytes % (auto) 3.1 %; Neutrophils # (auto) 6.61 K/uL (1.4-6.5); Neutrophils % (auto) 91.8 %; Platelet Estimate SIGNIFIC DECREASED (Normal)
--- NOTE | 2019-05-15 07:30 | Hospitalist Progress Note ---
Date of Service May 15, 2019 Assessment & Plan (1) Thrombocytopenia: Discussed with Dr. Gonsalez on 05/14 - Likely ITP. Prior platelets for years have been in the 70-90 range. WILL NOT RESPOND TO FURTHER PLATELETS. - On dexamethasone 40mg PO daily x 4 days (Last day: 05/16) - Hopefully see some platelets rebound by 05/15 or 05/16 - Monitor plts - Up to 9 on 05/15; continue steroids - If bleeding, give IvIg. Platelets will not help as she has circulating Ab to platelets. Only give if she is hemorrhaging and can get nothing else. (2) Hemorrhage from ileostomy: Due to thrombocytopenia from above. In the ED, used tranexamic acid topically which helped. - See above for platelets - Could re-administer tranexamic acid if stoma starts to bleed again - She was carefully instructed to watch the stoma site for additional bleeding or any bruising or lumps (hematoma) in the area. Also instructed on other concerning signs/symptoms of bleeding. Nurse was also instructed on this also. - No further bleeding on 05/15 (3) Mucinous adenocarcinoma of appendix: Diagnosed ~6 years ago. Follow[address] with Dr. Licona. Currently in remission getting monthly Avastin infusions. Last one was in early March. Per Dr. Gonsalez, this is not playing a role in her thrombocytopenia. - Plan for treatment on 05/13, though it was held for thrombocytopenia - Will discuss with Dr. Licona tomorrow (4) DVT prophylaxis: Holding SCDs and heparin for thrombocytopenia. Subjective Feeling quite well. No further stomal bleeding, no major concerns. No fevers or chills. No chest pain. Review of Systems Review of Systems: All systems reviewed & are unremarkable except as noted in HPI & below Physical Exam Constitutional: WD/WN, vitals as above Eyes: EOM intact bilaterally; no conjunctival abnormality ENMT: external ear and nose normal, oropharynx normal Neck: trachea midline, no thyromegaly normal visual inspection Respiratory: normal respiratory effort, lungs clear to auscultation no respiratory distress Cardiovascular: RRR, no murmur, no edema Gastrointestinal (Abdomen): Inspection/Auscultation: abdomen normal to inspection and normal bowel sounds; abdomen not distended and no abdominal edema Musculoskeletal: no cyanosis or clubbing, extremities motor strength 5/5 Skin: no rashes, warm and dry Neurologic: moves all extremities and awake Psychiatric: Orientation: alert, oriented to person and cooperative Results & Data Vital Signs (Past 12 Hours) Vital Signs Temp Pulse Pulse Resp BP Pulse Ox 05/15/19 04:55 36.6 C 60 20 135/75 97 05/14/19 23:21 56 L 05/14/19 23:18 36.7 C 68 18 135/70 98 PG Care Time/CCT Total # of Minutes Spent Total Time Spent with Patient: Total time spent is greater than 50% in coordination of care (as documented) at patient's floor/unit and/or counseling patient:
[2019-05-15] MEDS: MULTIVITAMIN TAB PO SCH (08:20)
[2019-05-15] MEDS: CHOLECALCIFEROL 1,000 UNITS TAB PO SCH (08:20)
[2019-05-15] MEDS: dexAMETHasone 4 MG TAB PO SCH (08:20)
[2019-05-15] MEDS: IRON POLYSACCHARIDE COMPLEX 150 MG CAPSULE PO SCH (08:22)
--- NOTE | 2019-05-15 12:24 | Hematology/Oncology Prog Note ---
Date of Service May 15, 2019 Assessment & Plan (1) Thrombocytopenia: Her presentation is consistent with ITP. Her platelet count is up today, which is encouraging. She is due for her third of 4 days of steroids today. She received 4 units of platelets yesterday and saw essentially no change in her platelet count. This is to be expected, as patients with ITP do not respond to platelet transfusion. I would avoid any further platelet transfusions except in a situation of life-threatening bleeding. Should she start to bleed, as recommended, I would give IVIG rather than platelets. Present on Admission?: Yes Subjective Ms. Vasquez looks well today. She has had no further bleeding anywhere. She is eating well and denies any pain, headaches, vision changes, or fatigue. Review of Systems Constitutional: no fever and no fatigue Eyes: no worsening vision Ear, Nose, Mouth, Throat: no epistaxis and no bleeding gums Respiratory: no cough and no dyspnea Cardiovascular: no chest pain and no edema Gastrointestinal: no abdominal pain, no nausea and no blood in stools Genitourinary: no dysuria and no hematuria Integumentary: no rash and no bleeding lesions Neurologic: no dizziness and no headache(s) Hematologic / Lymphatic: no easy bruising Physical Exam Constitutional: well nourished and comfortable; no acute distress Eyes: + anicteric sclerae and EOM intact bilaterally ENMT: external ear and nose normal, oropharynx normal Respiratory: normal respiratory effort, lungs clear to auscultation Cardiovascular: RRR, no murmur, no edema Gastrointestinal (Abdomen): Inspection/Auscultation: normal bowel sounds; abdomen not distended Percussion/Palpation: abdomen soft; abdomen nontender Musculoskeletal: no cyanosis or clubbing, extremities motor strength 5/5 Skin: no rashes, warm and dry Psychiatric: A+Ox3, euthymic affect Lymphatic: no cervical or axillary lymphadenopathy Results & Data Vital Signs (Past 12 Hours) Vital Signs Temp Pulse Pulse Resp BP Pulse Ox 05/15/19 11:00 36.7 C 60 18 124/73 100 05/15/19 08:54 58 L 05/15/19 07:00 36.8 C 79 20 135/78 98 05/15/19 04:55 36.6 C 60 20 135/75 97 Laboratory Results Laboratory Results - last 24 hr 05/13/19 05/15/19 05/15/19 21:29 05:55 05:55 WBC 7.20 RBC 3.69 L Hgb 9.2 L Hct 29.7 L MCV 80.5 MCH 24.9 L MCHC 31.0 L RDW Std Deviation 51.0 H RDW Coeff of Veda 17.1 H Plt Count 9 L* D Immature Gran % (Auto) 0.1 Neut % (Auto) 91.8 Lymph % (Auto) 5.0 [place] % (Auto) 3.1 Eos % (Auto) 0.0 Baso % (Auto) 0.0 Immature Gran # (Auto) 0.01 Neut # (Auto) 6.61 H Lymph # (Auto) 0.36 L [place] # (Auto) 0.22 Eos # (Auto) 0.00 Baso # (Auto) 0.00 Platelet Estimate SIGNIFIC DECREASED Anisocytosis Present Sodium 142 Potassium 4.0 Chloride 107 Carbon Dioxide 29 Anion Gap 6.0 BUN 21 H Creatinine 1.12 Est Cr Clr Drug Dosing 46.4 Est GFR ( Amer) 63.1 Est GFR (Non-Af Amer) 54.5 BUN/Creatinine Ratio 18.3 Glucose 155 H Calcium 8.5 Blood Type B Positive Antibody Screen POSITIVE A Antibody Identification Anti-K Antibody ID Comment Antigen Identification K Antigen - NEGATIVE
[2019-05-15] MEDS: LATANOPROST 0.005% OP SOLN 2.5 ML BTL OPB SCH (21:13)
[2019-05-15] MEDS: HEPARIN 100 UNIT/ML 5ML FLUSH FLUSH PRN (21:19)
[2019-05-16 07:20] LABS: BUN Creatinine Ratio 19.6 (10-20); Calcium 8.6 mg/dl (8.5-10.1); Creatinine Clr Calc Pharmacy 49.5 ml/min; Est GFR (African American) 66.7; Est GFR (Non-African American) 57.6; Magnesium 1.9 mg/dl (1.8-2.4); Potassium 3.8 mmol/L (3.5-5.1)
[2019-05-16] MEDS: dexAMETHasone 4 MG TAB PO SCH (07:29)
[2019-05-16 07:30] LABS: Giant Platelets 1+; Hematocrit (blood only) 29.9 % (37-47); Hemoglobin 9.2 g/dL (12.0-16.0); Immature Granulocytes # (auto) 0.02 K/uL (0.00-0.02); Immature Granulocytes % (auto) 0.3 %; Lymphocytes % (auto) 7.4 %; Mean Corpuscular Hemoglobin 24.8 pg (25-34); Mean Corpuscular Hgb Conc 30.8 g/dL (32-36); Mean Corpuscular Volume 80.6 fL (80-100); Monocytes # (auto) 0.33 K/uL (0.11-0.59); Monocytes % (auto) 4.9 %; Neutrophils # (auto) 5.89 K/uL (1.4-6.5); Neutrophils % (auto) 87.4 %; Platelet Count 15 K/uL (130-400); Platelet Estimate SIGNIFIC DECREASED (Normal); RDW Coefficient of Variation 16.9 % (11.5-14.5); RDW Standard Deviation 50.2 fL (36.4-46.3); Red Blood Count 3.71 M/uL (4.2-5.4); White Blood Count 6.74 K/uL (4.8-10.8)
[2019-05-16] MEDS: MULTIVITAMIN TAB PO SCH (09:05)
[2019-05-16] MEDS: CHOLECALCIFEROL 1,000 UNITS TAB PO SCH (09:06)
[2019-05-16] MEDS: IRON POLYSACCHARIDE COMPLEX 150 MG CAPSULE PO SCH (09:06)
[2019-05-16] MEDS: ONDANSETRON INJ 2 MG/ML 2 ML VIAL IV PRN (09:37)
[2019-05-16] MEDS: HEPARIN 100 UNIT/ML 5ML FLUSH FLUSH PRN ×2 (09:38→15:34)
--- NOTE | 2019-05-16 09:45 | Progress Note ---
DATE: 05/16/2019 DIAGNOSES: 1. Immune thrombocytopenic purpura. 2. Hemorrhage from ileostomy. 3. Metastatic mucinous adenocarcinoma of the appendix. 4. Deep venous thrombosis prophylaxis. SUBJECTIVE: Brooke is a pleasant 58-year-old -[place] female well known to my service, currently receiving single agent bevacizumab to manage metastatic appendiceal cancer. Brooke had suddenly developed profound drop in her platelet count, which resulted in bleeding from her stoma as well as epistaxis. Platelet count had dropped prior to the weekend, was started on high dose dexamethasone daily. Dr. Gonsalez followed her over the weekend and her platelet count is improving, presently measuring 15,000. Brooke feels well and would like to be discharged unless there are other issues keeping her here. Nursing reports no overnight difficulties. PHYSICAL EXAMINATION: GENERAL: Very pleasant 58-year-old -[place] female in no acute distress. VITAL SIGNS: Temperature is 36.8, pulse 60, respiratory rate 12, blood pressure 170/74. SKIN: Without rash or lesion. No evidence of petechiae or ecchymosis. HEENT: Oral mucosa. No evidence of palatal petechiae. HEART: Regular rate and rhythm. LUNGS: Clear to auscultation bilaterally. ABDOMEN: Soft, nontender, nondistended. EXTREMITIES: No clubbing, cyanosis or edema. NEUROLOGICAL: Grossly intact. LABORATORY DATA: WBC count 6740, hemoglobin 9.2, platelet count 15,000. Sodium 142, potassium 3.8, chloride 107, carbon dioxide 29, creatinine 1.07, BUN 21. IMPRESSION: 1. Immune thrombocytopenic purpura. 2. Metastatic mucinous appendiceal carcinoma. PLAN: Brooke is a very pleasant 58-year-old [facility] patient under my care receiving single agent bevacizumab for maintenance of an underlying metastatic mucinous appendiceal carcinoma. She subacutely developed thrombocytopenia with bleeding symptoms. She was transfused platelets over the weekend, resulting in no gain in her platelet count, which confirmed the diagnosis of an immune-mediated thrombocytopenia. She is on day #4 of dexamethasone. Informally discussed the case with Dr. Charlton, the managing hospitalist. If there are no outstanding clinical issues, I feel Brooke could be discharged today with close laboratory followup. CBC again this coming and perhaps an outpatient encounter with our bicycle i assembler. Brooke is agreeable to this plan. Thank you again for managing this very pleasant patient.
--- NOTE | 2019-05-16 15:15 | Hospitalist Progress Note ---
Date of Service May 16, 2019 Assessment & Plan (1) Abdominal pain: Worse abdominal pain on 05/16. She reports that this occasionally happens depending on her diet. She had episode of emesis with it. Concern for partial SBO. - KUB ordered - Also have some back pain with it; concern for possible spontaneous bleeding. - CBC - Low threshold to get CT scan if pain worsens. (2) Thrombocytopenia: Discussed with Dr. Gonsalez on 05/14 - Likely ITP. Prior platelets for years have been in the 70-90 range. WILL NOT RESPOND TO FURTHER PLATELETS. - On dexamethasone 40mg PO daily x 4 days (Last day: 05/16) - If bleeding, give IvIg. Platelets will not help as she has circulating Ab to platelets. Only give if she is hemorrhaging and can get nothing else. - By 05/16, platelets were 15. Dr. Licona feels this is a good response and will continue to climb. (3) Hemorrhage from ileostomy: Due to thrombocytopenia from above. In the ED, used tranexamic acid topically which helped. - See above for platelets - Could re-administer tranexamic acid if stoma starts to bleed again - She was carefully instructed to watch the stoma site for additional bleeding or any bruising or lumps (hematoma) in the area. Also instructed on other concerning signs/symptoms of bleeding. Nurse was also instructed on this also. - No further bleeding on 05/16 (4) Mucinous adenocarcinoma of appendix: Diagnosed ~6 years ago. Follow[address] with Dr. Licona. Currently in remission getting monthly Avastin infusions. Last one was in early March. Per Dr. Gonsalez, this is not playing a role in her thrombocytopenia. - Plan for treatment on 05/13, though it was held for thrombocytopenia - Discussed with Dr. Licona - Will follow up outpatient with CBC this week. (5) DVT prophylaxis: Holding SCDs and heparin for thrombocytopenia. Subjective Surprising amount of abdominal pain this morning. She reports that is likely due to the roast beef and mashed his she had last night. Sometimes things can upset her stomach. However, she is also having some back pain which she reports is cramping. Review of Systems Review of Systems: All systems reviewed & are unremarkable except as noted in HPI & below Physical Exam Constitutional: WD/WN, vitals as above Eyes: EOM intact bilaterally; no conjunctival abnormality ENMT: external ear and nose normal, oropharynx normal Neck: trachea midline, no thyromegaly normal visual inspection Respiratory: normal respiratory effort, lungs clear to auscultation no respiratory distress Cardiovascular: RRR, no murmur, no edema Gastrointestinal (Abdomen): Inspection/Auscultation: abdomen normal to inspection and normal bowel sounds; abdomen not distended and no abdominal edema Musculoskeletal: no cyanosis or clubbing, extremities motor strength 5/5 Skin: no rashes, warm and dry Neurologic: moves all extremities and awake Psychiatric: Orientation: alert, oriented to person and cooperative Results & Data Vital Signs (Past 12 Hours) Vital Signs Temp Pulse Pulse Resp BP Pulse Ox 05/16/19 14:43 36.9 C 59 L 20 136/75 98 05/16/19 11:15 36.8 C 64 12 135/73 99 05/16/19 09:20 69 05/16/19 07:35 36.8 C 60 12 170/74 H 99 05/16/19 03:56 36.5 C 68 18 140/74 99 PG Care Time/CCT Total # of Minutes Spent Total Time Spent with Patient: Total time spent is greater than 50% in coordination of care (as documented) at patient's floor/unit and/or counseling patient:
--- NOTE | 2019-05-16 16:02 | XRay Report ---
KUB HISTORY: Acute generalized abdominal pain Abdominal pain COMPARISON: CT abdomen and pelvis 11/05/2018. FINDINGS: The bowel gas pattern is non-obstructive. Surgical suture material projects over the abdomi nal right lower quadrant. Surgical clips project over the abdomen and pelvis. Multiple phleboliths of the pelvis. There is no organomegaly. No renal calculi. No ureteral calculi. No pneumoperitoneum or pneumatosis. Uterine changes of the spine, pelvis and hips. No fracture. IMPRESSION: Nonobstructive bowel gas pattern. Electronically signed by: Cameron Fleming M.D. 05/16/2019 4:01 PM
[2019-05-16] MEDS: LATANOPROST 0.005% OP SOLN 2.5 ML BTL OPB SCH (20:47)
[2019-05-17 06:57] LABS: BUN Creatinine Ratio 22.6 (10-20); Calcium 8.4 mg/dl (8.5-10.1); Est GFR (African American) 62.5; Est GFR (Non-African American) 53.9; Magnesium 2.1 mg/dl (1.8-2.4); Phosphorus 3.8 mg/dl (2.5-4.9); Potassium 3.8 mmol/L (3.5-5.1)
[2019-05-17 07:05] LABS: Hematocrit (blood only) 31.2 % (37-47); Hemoglobin 9.9 g/dL (12.0-16.0); Mean Corpuscular Hemoglobin 25.6 pg (25-34); Mean Corpuscular Hgb Conc 31.7 g/dL (32-36); Mean Corpuscular Volume 80.8 fL (80-100); Platelet Count 24 K/uL (130-400); Platelet Estimate SIGNIFIC DECREASED (Normal); RDW Coefficient of Variation 16.9 % (11.5-14.5); RDW Standard Deviation 49.7 fL (36.4-46.3); Red Blood Count 3.86 M/uL (4.2-5.4); White Blood Count 7.26 K/uL (4.8-10.8)
[2019-05-17 07:21] VITALS: BP 143/77; PULSE 59; TEMP 98.1; O2SAT 97
--- NOTE | 2019-05-17 08:27 | Progress Note ---
DATE: 05/17/2019 HEMATOLOGY PROGRESS NOTE DIAGNOSES: 1. Immune thrombocytopenic purpura. 2. Hemorrhage from ileostomy. 3. Metastatic mucinous adenocarcinoma of the appendix. 4. Deep venous thrombosis prophylaxis. SUBJECTIVE: Brooke is a pleasant 58-year-old -[place] female well known to my service, currently receiving single agent bevacizumab for metastatic appendiceal cancer. Brooke developed a profound drop in her platelet count, which resulted in stomal bleeding as well as epistaxis. She was started on high-dose dexamethasone, which she completed yesterday. Her platelet count is on the rise, currently 24,000. I anticipated her being discharged yesterday, but apparently was complaining of abdominal pain. KUB revealed a nonobstructive gas pattern. Her belly pain is improved. She is anticipating discharge today. OBJECTIVE: GENERAL: A very pleasant 58-year-old -[place] female. Awake, alert and appropriate, in no acute distress. VITAL SIGNS: Temperature 36.7, pulse 59, respiratory rate 17, blood pressure 143/77. SKIN: Without rash or lesion. HEENT: Oral mucosa without erythema or ulceration. HEART: Regular rate and rhythm. LUNGS: Clear to auscultation bilaterally. ABDOMEN: Soft, nontender, nondistended. EXTREMITIES: No clubbing, cyanosis, or edema. NEUROLOGIC: Grossly intact. LABORATORY DATA: WBC count 7260, hemoglobin 9.9, platelet count 24,000. Sodium 141, potassium 3.8, chloride 106, carbon dioxide 30, creatinine 1.13, BUN 26. IMPRESSION: 1. Subacute onset abdominal pain (resolved). 2. Immune thrombocytopenic purpura. 3. Hemorrhage from ileostomy. 4. Metastatic mucinous adenocarcinoma of the appendix. PLAN: Brooke was seen and examined this morning. Feeling much better. KUB again confirmed no evidence of bowel obstruction. I have instructed her to recheck peripheral blood counts this coming . She will be seen in the office in the next week or two as well. At some point, she will also resume bevacizumab for her metastatic disease. Overall, I could not be more pleased with response. Cautioned her about waxing and waning of platelets early on during recovery of an immune thrombocytopenic event. If she relapses, we will proceed with IVIG. Thank you again for allowing me to participate in her care. We will officially sign off today.
[2019-05-17] MEDS: IRON POLYSACCHARIDE COMPLEX 150 MG CAPSULE PO SCH (08:28)
[2019-05-17] MEDS: MULTIVITAMIN TAB PO SCH (08:29)
[2019-05-17] MEDS: CHOLECALCIFEROL 1,000 UNITS TAB PO SCH (08:29)
--- NOTE | 2019-05-17 17:05 | Discharge Summary ---
Date of Service May 17, 2019 Admission HPI Per Admitting Provider 58 yo F on maintenance chemotherapy for appendiceal cancer here for abnormal lab value of platelets of 2-3. Also with bleeding from her stoma. Began yesterday. Sent here from cancer center, is currently on course of decadron as well. Tranexamic acid applied topically to stoma with good effect. Labs otherwise remarkable for anemia at baseline, inr 1.0, Scrap Shear Operator 1.25 (baseline is 1.03). Principal Diagnosis ITP Discharge Exam In general she is awake and alert pleasant no distress. HEENT normocephalic atraumatic mucous membranes moist. Breathing unlabored no accessory muscle use good effort. Abdomen soft nontender nondistended no guarding no rebound no masses organomegaly. Extremities show no cyanosis or clubbing Discharge Data Allergies Allergy/AdvReac Type Severity Reaction Status Date / Time pineapple Allergy Severe anaphylaxis Verified 05/13/19 23:08 [place] And Derivatives Allergy Intermediate Hives Verified 05/13/19 23:08 clarithromycin Allergy Intermediate HIVES Verified 05/13/19 23:08 naproxen Allergy Intermediate Hives Verified 05/13/19 23:08 Penicillins Allergy Intermediate Hives Verified 05/13/19 23:08 tomato Allergy Intermediate HIVES, Verified 05/13/19 23:08 THROAT TIGHTENS latex Allergy Mild RASH Verified 05/13/19 23:08 Cantaloupe Allergy Intermediate HIVES, Uncoded 05/13/19 23:08 THROAT TIGHTENS Consultations 05/13/19 23:25 ED Decision to Admit Stat 05/14/19 09:42 Consult Oncology Routine Hospital Course (1) Abdominal pain: Resolved. Suspect related to the high dosing of steroids she was on, but given that it resolved over a day, more of a steroid induced indigestion than a steroid induced peptic ulcer disease. Stable for discharge to home and outpatient follow-up (2) Thrombocytopenia: Prior hospitalist discussed with Dr. Gonsalez on 05/14 - Likely ITP. Prior platelets for years have been in the 70-90 range. WILL NOT RESPOND TO FURTHER PLATELETS. -Was on dexamethasone 40mg PO daily x 4 days (Last day: 05/16) - If bleeding, give IvIg. Platelets will not help as she has circulating Ab to platelets. Only give if she is hemorrhaging and can get nothing else. -Platelets now in a reasonable range, safe for discharge, following up with hematology in 2 days (3) Hemorrhage from ileostomy: Due to thrombocytopenia from above. In the ED, used tranexamic acid topically which helped. -Bleeding is resolved, stable for home (4) Mucinous adenocarcinoma of appendix: Diagnosed ~6 years ago. Follow[address] with Dr. Licona. Currently in remission getting monthly Avastin infusions. Last one was in early March. Per Dr. Gonsalez, this is not playing a role in her thrombocytopenia. - Plan for treatment on 05/13, though it was held for thrombocytopenia - Discussed with Dr. Licona - Will follow up outpatient with CBC this week. (5) DVT prophylaxis: Holding SCDs and heparin for thrombocytopenia. Total Time Total Time Spent Total Time Spent (In Minutes): >30 Discharge Plan Discharge Items Patient Disposition: Home - Self-Care Reason For Visit: THROMBOCYTOPENIA, BLEEDING Discharge Diagnosis: ITP (see below) Activity: Resume your previous activity Non-emergency contact: Primary Care Provider and Oncologist Call non-emergency contact if: you have any medication questions, your symptoms worsen and your pain is worsening Follow-up/Referrals: Robert Hernández [Primary Care Provider] - 05/23/19 11:10 am (Please, follow up with Dr. Robert Hernández on ThursdayMay 23 at 11:10 am. *If you need to change/cancel this appointment, call his office at [phone].) Diet: Regular Addtl Attending Provider Instructions: ITP -this is an autoimmune condition where essentially the immune system "goes rogue" and attacks platelets -essentially your immune system attacked platelets and destroyed them to where there were very few -platelets are part of our blood cells- they are the part that is there to start the clotting process when there is any break in the blood vessel -- because of this, when platelet counts are low, bleeding can occur more easily (either with a cut, or with an area that's more prone to maybe bleeding a little - in your case with the mucosa around the ostomy site, with other people sometimes it's nosebleeds or bleeding gums) -to treat ITP, we need to "settle down the immune system" -- hence the big doses of dexamethasone- steroids like that act as a temporary "immune system supp ressant" to quiet that attack on the platelets -- right now it's worked well enough that your platelet counts (while still a long way from normal) are up enough to be safe to go home -as Dr Licona continues to follow your counts, hopefully we'll see your numbers improve, otherwise he'll need to consider things like IVIG (immune globulin is essentially a "magnet" that can bind up the antibodies your immune system is making to destroy platelets) or other different ways to settle the immune system down -of course, with your platelet counts still being low, be careful in situations that could provoke bleeding (such as if you're working in the kitchen, or anywhere else you could potentially get a cut); if you see bleeding and can't get it to stop with about 10 minutes of pressure (or if it's an area of bleeding that you can't put pressure on) then we'd want you back here in the hospital -Dr Licona will be seeing you on , following up your counts, and continuing to manage the situation it is quite likely that the abdominal pain you had yesterday was just in reaction to the big doses of steroids - high dosing of steroids notoriously can be upsetting to people's stomachs, and given that yesterday was at the end of several days of big dosing, and now you feel better today, that was the most likely culprit. of course, if things feel worse, we'd want you to get looked at, but this seems unlikely to be the case. Pending Studies at Discharge: No Stand-Alone Forms: [facility] Medications and DC Order Prescriptions: Continued multivitamin Tablet 1 tab PO DAILY RF: 0 latanoprost 0.005 % Drops 1 drp OPB HS RF: 0 ondansetron HCl [Zofran] 8 mg Tablet 8 mg PO DIRECTED PRN (Reason: Nausea And Vomiting) RF: 0 polysaccharide iron complex [iFerex 150] 150 mg iron Capsule 150 mg PO DAILY RF: 0 prochlorperazine maleate [Compazine] 10 mg Tablet 10 mg PO Q6H PRN (Reason: Nausea And Vomiting) RF: 0 acetaminophen [Tylenol Extra Strength] 500 mg Tablet 1,000 mg PO DIRECTED PRN (Reason: Pain) RF: 0 Alphagan P 0.1 % Drops 1 drp OPB TID RF: 0 cholecalciferol (vitamin D3) [Vitamin D3] 2,000 unit Capsule 2,000 unit PO DAILY RF: 0 Unknown Chemo Drugs 1 dose IV DIRECTED RF: 0 Discontinued dexamethasone 4 mg Tablet 40 mg PO QDB RF: 0 Discharge Orders: Discharge Order (Routine); Ordered 05/17/19 Ordered By: Alfonso Encarnacion Admission Data Admit Date/Time: 05/14/19 00:12 Attending Provider: Alfonso Encarnacion Admit Provider: Alona Perez Primary Care Provider: Robert Hernández Other Providers: Srini Charlton ; Roberth Gonsalez Other Interventions: Discharge Summary Assessment (RN) Last Done: 05/17/19 10:38 DC Date/Time DO NOT enter until pt leaves facility: 05/17/19 14:05
== END 2019-05-17 14:05 | disposition home or self-care (01) | DRG 813 ==
LOC: ED 19:58 → 2N 05-14 00:12 → SUATTDRO 05-14 00:12 → 2N 05-14 00:37
DX: K94.11 Enterostomy hemorrhage; R10.9 Unspecified abdominal pain; C18.1 Malignant neoplasm of appendix; Z79.899 Other long term (current) drug therapy; D69.3 Immune thrombocytopenic purpura

== ENCOUNTER 2020-12-18 15:14 | Inpatient (IN) ==
[2020-12-18] MEDS ORDERED: SODIUM CHLORIDE 0.9% 1000ML 1,000 ML IV ONE (15:45)
--- NOTE | 2020-12-18 16:11 | CT Scan Report ---
CT head/brain wo con CLINICAL HISTORY: 60 years-old Female with syncope. Acute syncope TECHNIQUE: Multiple axial CT images of the head were obtained without contrast. A dose lowering tech nique was utilized adhering to the principles of ALARA. CT DOSE: 537.48 mGy.cm COMPARISON: None. FINDINGS: No acute intracranial hemorrhage, midline shift, intracranial mass, hydrocephalus, territorial ischem ia or abnormal extra-axial collection. Senescent calcifications of the basal ganglia. Cerebral vascul ar calcifications. The calvarium is intact. Mastoid air cells are clear. Near-complete opacification of the right sphen oid sinus appears chronic. Tiny left supraorbital soft tissue contusion. Bilateral orbits are within normal limits. IMPRESSION: No acute intracranial abnormality. ACT 112: Negative or not required by law. The above report was generated using voice recognition software. It may contain grammatical, syntax o r spelling errors. Electronically signed by: Cameron Fleming M.D. 12/18/2020 4:10 PM
--- NOTE | 2020-12-18 16:52 | XRay Report ---
XR chest 1V portable HISTORY: syncope COMPARISON: Chest 06/01/2020. FINDINGS: Right jugular Port-A-Cath which terminates in the SVC. Surgical clips noted within the left upper quadrant. The lungs are clear. No pleural effusions. No pneumothorax. The heart is normal in s ize. IMPRESSION: No acute process. ACT 112: Negative or not required by law. Electronically signed by: Jame Sotomayor M.D. 12/18/2020 4:51 PM
[2020-12-18 16:57] LABS: iSTAT Creatinine 1.3 mg/dl (0.6-1.3); iSTAT Hemoglobin 8.5 g/dl (12.0-16.0); iSTAT Ionized Calcium 1.09 mmol/l (1.12-1.32); iSTAT Potassium 2.9 mmol/L (3.3-5.0)
[2020-12-18 17:10] LABS: INR 1.1 (0.9-1.1); Partial Thromboplastin Time 25.2 Seconds (21.0-31.0); Prothrombin Time 11.4 Seconds (9.0-12.0)
[2020-12-18 17:34] LABS: Hematocrit (blood only) 19.1 % (37-47); Hemoglobin 6.4 g/dL (12.0-16.0); Mean Corpuscular Hgb Conc 33.5 g/dL (32-36); Mean Corpuscular Volume 89.7 fL (80-100); Platelet Count 29 K/uL (130-400); RDW Coefficient of Variation 19.9 % (11.5-14.5); RDW Standard Deviation 65.6 fL (36.4-46.3); Red Blood Count 2.13 M/uL (4.2-5.4); White Blood Count 3.07 K/uL (4.8-10.8)
[2020-12-18 17:36] LABS: Albumin Level 2.8 gm/dl (3.4-5.0); BUN Creatinine Ratio 10.9 (10-20); Bilirubin Direct 0.2 mg/dl (0-0.2); Calcium 7.8 mg/dl (8.5-10.1); Creatinine Clr Calc Pharmacy 37.9 ml/min; Est GFR (Non-African American) 41.4; Magnesium 1.6 mg/dl (1.8-2.4); Potassium 2.9 mmol/L (3.5-5.1)
[2020-12-18] MEDS ORDERED: OPTIRAY 350 500ml IV ONE (17:51)
[2020-12-18 17:55] LABS: Anisocytosis Present; Basophils # (auto) 0.01 K/uL (0-0.2); Basophils % (auto) 0.3 %; Dohle Bodies 1+; Eosinophils # (auto) 0.13 K/uL (0-0.5); Eosinophils % (auto) 4.2 %; Immature Granulocytes # (auto) 0.02 K/uL (0.00-0.02); Immature Granulocytes % (auto) 0.7 %; Lymphocytes # (auto) 0.65 K/uL (1.2-3.4); Lymphocytes % (auto) 21.2 %; Neutrophils # (auto) 1.86 K/uL (1.4-6.5); Neutrophils % (auto) 60.6 %; Platelet Estimate SIGNIFIC DECREASED (Normal); Toxic Granulation 1+
[2020-12-18 18:04] LABS: Bilirubin,Total 0.8 mg/dl (0.2-1); Total Protein 7.7 gm/dl (6.4-8.2); Troponin I 0.072 ng/ml (0-0.045)
--- NOTE | 2020-12-18 18:12 | CT Scan Report ---
CHEST CTA for PULMONARY ARTERIES CT DOSE: 319.77 mGy.cm HISTORY: Syncope. TECHNIQUE: Multiaxial CT images of the chest were performed following the intravenous administration of contrast to evaluate the pulmonary arteries. Maximal intensity projection images were also obtaine d. A dose lowering technique was utilized adhering to the principles of ALARA. COMPARISON STUDY: Chest CT 10/12/2020. FINDINGS: Redemonstration of the hepatic and splenic capsular lesions consistent with metastatic dise ase. This is similar to the prior study. The spleen appears enlarged. This is also unchanged. Mild th ickening of the mid to distal esophagus which is also unchanged. No pleural or pericardial effusions. The heart is top normal in size. Right-sided pacemaker is again noted. No mediastinal hilar lymphade nopathy. No suspicious lytic are blastic osseous lesions. The central airways are patent. No pneumoth orax. Stable 3 mm subpleural nodule within the right upper lobe on image 157. No new or suspicious pu lmonary nodules identified. Bibasilar linear densities favor subsegmental atelectasis. No focal lung consolidations to suggest pneumonia. Normal caliber thoracic aorta with no evidence for dissection. N o filling defects within the pulmonary arteries to suggest pulmonary embolus. IMPRESSION: 1. No evidence for pulmonary embolus. 2. No focal lung consolidations to suggest pneumonia. 3. No change in the upper abdominal metastatic implants at the liver and spleen. ACT 112: Negative or not required by law. Electronically signed by: Jame Sotomayor M.D. 12/18/2020 6:10 PM
[2020-12-18] MEDS ORDERED: SODIUM CHLORIDE 0.9% 250 ML IV PRN ×2 (18:19→22:34)
[2020-12-18] MEDS ORDERED: PANTOPRAZOLE BOLUS/DRIP 1 EA IV STA (18:26)
[2020-12-18] MEDS ORDERED: PANTOprazole 80 MG in DEXTROSE 5% 100 ML IV ONE (18:26)
[2020-12-18] MEDS ORDERED: POTASSIUM CHLORIDE 10 MEQ TABCR PO STA (18:56)
[2020-12-18] MEDS ORDERED: MAGNESIUM SULFATE / D5W 1 GM/100 ML BAG IV ONE (18:56)
--- NOTE | 2020-12-18 19:05 | Emergency Department Note ---
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 Licona presents emergency department for syncope. Patient states she works at [email or web address] and she was standing at work and then passed out. Patient denies hitting her head. Patient states her coworkers helped lower her to the ground. Patient denies any chest pain or difficulty breathing. Patient denies any hematuria dysuria melena or hematochezia. Patient does state that she has a history of ITP. Home Medications Medication Instructions Recorded Confirmed Type Alphagan P 1 drp OPB TID 05/12/19 12/18/20 History cholecalciferol (vitamin D3) 2,000 unit PO QAM 05/12/19 12/18/20 History [Vitamin D3] latanoprost [Xalatan] 1 drp OPB HS 05/12/19 12/18/20 History multivitamin 1 tab PO QAM 05/12/19 12/18/20 History gabapentin 300 mg PO HS 12/18/20 12/18/20 History ondansetron HCl [Zofran] 8 mg PO Q8H PRN 12/18/20 12/18/20 History prochlorperazine maleate 10 mg PO Q6 PRN 12/18/20 12/18/20 History Allergies Allergy/AdvReac Type Severity Reaction Status Date / Time pineapple Allergy Severe anaphylaxis Verified 12/18/20 17:29 [place] And Derivatives Allergy Intermediate hives Verified 12/18/20 17:29 clarithromycin Allergy Intermediate hives Verified 12/18/20 17:29 naproxen Allergy Intermediate hives Verified 12/18/20 17:29 Penicillins Allergy Intermediate hives Verified 12/18/20 17:29 tomato Allergy Intermediate hives, Verified 12/18/20 17:29 throat tightness latex Allergy Mild rash Verified 12/18/20 17:29 Cantaloupe Allergy Intermediate hives, Uncoded 12/18/20 17:29 throat tightness Past Med/Surg History Medical History Anemia chronic, baseline hgb 9-11 range per chart review Borderline diabetes diet controlled Chronic ITP (idiopathic thrombocytopenia) platelet WNL on 06/01/20 labs High cholesterol 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 Pancreatitis post-op (2014) 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, chemo currently Surgical History Encounter for insertion of venous access port 2012 (subsequent removal) History of laparotomy USO + salipngectomy Hx laparoscopic cholecystectomy 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 Family History Other Diabetes Heart disease Hypertension Stroke Social History Smoking Status: Never smoker Second Hand Exposure: No; Hx Alcohol Use: Yes Hx Substance Use: No Preferred Language: Chinese Communication Ability: Effective Air Hose Coupler Required: No Beliefs That Will Affect Care: None marital status: Current Living Situation: Family Current Living Situation Comment: lives with son Feels Safe at Home: Yes Assistive Devices: Glasses Review of Systems A total of 10 systems reviewed and were otherwise negative Physical Exam Vital Signs Vital Signs - 24 hr 12/18/20 15:23 12/18/20 17:30 12/18/20 17:36 Temperature 37.0 C Temperature Source Skin Pulse Rate 92 H 87 Pulse Rate from SpO2 Sensor 88 Respiratory Rate 17 20 Respiratory Effort / Characteristics Non-Labored Respiratory Depth Normal Blood Pressure 142/58 H 134/65 Blood Pressure Mean 86 88 Pulse Oximetry 100 100 100 Oxygen Delivery Method Room Air Room Air Sepsis Recent Fever Within 48 Hours No Sepsis New/Unexplained Change in Mental Status No Sepsis Action Taken by Nursing No Action Required Physical Exam GENERAL: She is oriented to person, place, and time. She appears well-developed and well-nourished. She does not appear distressed. HENT: Exam performed. -Head: Normocephalic and atraumatic. -Right Ear: External ear normal. No mastoid tenderness. -Left Ear: External ear normal. No mastoid tenderness. -Mouth/Throat: The oropharynx is clear and moist. No trismus in the jaw. No dental abscesses or uvula swelling. No oropharyngeal exudate or tonsillar abscesses. EYES: Conjunctivae and EOM are normal. Pupils are equal, round, and reactive to light. Right eye exhibits no discharge. Left eye exhibits no discharge. No scleral icterus. NECK: Normal range of motion. Neck supple. No JVD present. No spinous process tenderness present. No carotid bruit present. No rigidity. No tracheal deviation and normal range of motion present. No Brudzinski's sign and no Kernig's sign noted. CV: Normal rate, regular rhythm, normal heart sounds and intact distal pulses. There is no peripheral edema. Palpable radial pulses bue. PULM/CHEST: Effort normal and breath sounds normal. No respiratory distress. No stridor. She has no wheezes. She has no rales. -Chest Wall: She exhibits no tenderness. ABD: The abdomen is soft. Colostomy bag present. Bowel sounds are normal. She has no distension. No mass is present. There is no tenderness. There is no rebound, no guarding, no Contreras's sign and no tenderness at McBurney's point. Rovsig negative MUSC/SKEL: Normal range of motion. There is no peripheral edema, tenderness or deformity. LYMPH: No cervical adenopathy. NEURO: She is alert and oriented to person, place, and time. She has normal strength. No cranial nerve deficit or sensory deficit. Coordination and gait normal. GCS eye subscore is 4. GCS verbal subscore is 5. GCS motor subscore is 6. Cerebellar tests wnl. SKIN: Skin is warm and dry. She is not diaphoretic. PSYCH: She has a normal mood and affect. Behavior is normal. Judgment and th ought content normal. Course Course 153: The patient was evaluated in room A12. A complete history and physical exam was performed Cardiac monitoring: An order was placed for continuous cardiac monitoring. The monitor shows a rate of 80 with sinus rhythm 1804: Vital signs stable. Labs show a hemoglobin of down from 8.84 days ago which was down from 9.3 a day prior. Platelets are down to 29, down from 87 4 days ago down from 102 the day before. Potassium 2.9. Magnesium 1.7. Lactic acid elevated 2.8. Troponin elevated 0.072. Patient denies any chest pain or difficulty breathing. It is thought that the patient's troponin elevation could be due to demand ischemia due to her hemoglobin. Patient does have a history of chronic ITP. The patient states that she got IVIG 2 weeks ago but did not get any steroids. Spoke with Dr. 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 He states that the patient usually responds well to IVIG and he will evaluate the patient in the hospital tomorrow for IVIG. He does recommend 2 units of packed red blood cells. No platelet transfusion at this time. 1826: Patient's ileostomy was Hemoccult positive. Patient will also be started on Protonix bolus and drip. Dr. Gates [facility] hospitalist has been notified. Administered Medications Discontinued Medications Sodium Chloride (Nss 1000ml) 1,000 mls @ 999 mls/hr IV .Q1H1M ONE Stop: 12/18/20 16:45 Last Admin: 12/18/20 16:49 Dose: 999 mls/hr Documented by: [id number] Ioversol (Optiray 350 500ml) 111 ml IV ONCE ONE Stop: 12/18/20 17:52 Last Admin: 12/18/20 17:52 Dose: 111 ml Documented by: [id number] Critical Care Time Critical Care Time: Yes Total Critical Care Time: 79 I have personally spent greater than 79 minutes of critical care time in the direct management of this patient. This includes bedside care, interpretation of diagnostic studies, and testing, discussion with consultants, patient, and family members, and other required patient management activities. This 79 minutes is in excess of all separately billable procedures. Medical Decision Making Laboratory Data Result diagrams: 12/18/20 16:23 12/18/20 16:23 Lab Results 12/18/20 12/18/20 12/18/20 Range/Units 16:23 16:23 16:23 WBC 3.07 L (4.8-10.8) K/uL RBC 2.13 L (4.2-5.4) M/uL Hgb 6.4 L* (12.0-16.0) g/dL POC Hgb (12.0-16.0) g/dl Hct 19.1 L* (37-47) % POC Hct (37-47) % MCV 89.7 (80-100) fL MCH 30.0 (25-34) pg MCHC 33.5 (32-36) g/dL RDW Std Deviation 65.6 H (36.4-46.3) fL RDW Coeff of Veda 19.9 H (11.5-14.5) % Plt Count 29 L* (130-400) K/uL Immature Gran % (Auto) 0.7 % Neut % (Auto) 60.6 % Lymph % (Auto) 21.2 % [place] % (Auto) 13.0 % Eos % (Auto) 4.2 % Baso % (Auto) 0.3 % Neut # (Auto) 1.86 (1.4-6.5) K/uL Lymph # (Auto) 0.65 L (1.2-3.4) K/uL [place] # (Auto) 0.40 (0.11-0.59) K/uL Eos # (Auto) 0.13 (0-0.5) K/uL Baso # (Auto) 0.01 (0-0.2) K/uL Immature Gran # (Auto) 0.02 (0.00-0.02) K/uL Toxic Granulation 1+ Dohle Bodies 1+ Platelet Estimate SIGNIFIC DECREASED (Normal) Anisocytosis Present PT 11.4 (9.0-12.0) Seconds INR 1.1 (0.9-1.1) APTT 25.2 (21.0-31.0) Seconds PTT Ratio 1.0 POC Sodium (135-144) mmol/L Sodium 137 (136-145) mmol/L POC Potassium (3.3-5.0) mmol/L Potassium 2.9 L (3.5-5.1) mmol/L POC Chloride (101-112) mmol/L Chloride 105 (98-107) mmol/L Carbon Dioxide 26 (21-32) mmol/L POC Total CO2 (24-31) mmol/L Anion Gap 6.0 (3-11) POC Anion Gap (16-25) mmol/L POC BUN (7-18) mg/dl BUN 15 (7-18) mg/dl Creatinine 1.39 H (0.6-1.2) mg/dl POC Creatinine (0.6-1.3) mg/dl Est Cr Clr Drug Dosing 37.9 ml/min Est GFR ( Amer) 48.0 Est GFR (Non-Af Amer) 41.4 BUN/Creatinine Ratio 10.9 (10-20) Glucose 208 H (70-99) mg/dl POC Glucose (other) (70-99) mg/dl Lactate (0.4-2.0) mmol/L Calcium 7.8 L (8.5-10.1) mg/dl POC Ioniz Calcium Magda (1.12-1.32) mmol/l Magnesium 1.6 L (1.8-2.4) mg/dl Total Bilirubin 0.8 (0.2-1) mg/dl Direct Bilirubin 0.2 (0-0.2) mg/dl AST 37 (15-37) U/L ALT 25 (12-78) U/L Alkaline Phosphatase 312 H (45-117) U/L Troponin I 0.072 H* (0-0.045) ng/ml Total Protein 7.7 (6.4-8.2) gm/dl Albumin 2.8 L (3.4-5.0) gm/dl Lipase 187 (73-393) U/L COVID-19 Eval Order 12/18/20 12/18/20 12/18/20 Range/Units 16:23 16:23 16:44 WBC (4.8-10.8) K/uL RBC (4.2-5.4) M/uL Hgb (12.0-16.0) g/dL POC Hgb 8.5 L (12.0-16.0) g/dl Hct (37-47) % POC Hct 25 L (37-47) % MCV (80-100) fL MCH (25-34) pg MCHC (32-36) g/dL RDW Std Deviation (36.4-46.3) fL RDW Coeff of Veda (11.5-14.5) % Plt Count (130-400) K/uL Immature Gran % (Auto) % Neut % (Auto) % Lymph % (Auto) % [place] % (Auto) % Eos % (Auto) % Baso % (Auto) % Neut # (Auto) (1.4-6.5) K/uL Lymph # (Auto) (1.2-3.4) K/uL [place] # (Auto) (0.11-0.59) K/uL Eos # (Auto) (0-0.5) K/uL Baso # (Auto) (0-0.2) K/uL Immature Gran # (Auto) (0.00-0.02) K/uL Toxic Granulation Dohle Bodies Platelet Estimate (Normal) Anisocytosis PT (9.0-12.0) Seconds INR (0.9-1.1) APTT (21.0-31.0) Seconds PTT Ratio POC Sodium 138 (135-144) mmol/L Sodium (136-145) mmol/L POC Potassium 2.9 L (3.3-5.0) mmol/L Potassium (3.5-5.1) mmol/L POC Chloride 101 (101-112) mmol/L Chloride (98-107) mmol/L Carbon Dioxide (21-32) mmol/L POC Total CO2 26 (24-31) mmol/L Anion Gap (3-11) POC Anion Gap 15.0 L (16-25) mmol/L POC BUN 15 (7-18) mg/dl BUN (7-18) mg/dl Creatinine (0.6-1.2) mg/dl POC Creatinine 1.3 (0.6-1.3) mg/dl Est Cr Clr Drug Dosing ml/min Est GFR ( Amer) Est GFR (Non-Af Amer) BUN/Creatinine Ratio (10-20) Glucose (70-99) mg/dl POC Glucose (other) 210 H (70-99) mg/dl Lactate 2.8 H* (0.4-2.0) mmol/L Calcium (8.5-10.1) mg/dl POC Ioniz Calcium Magda 1.09 L (1.12-1.32) mmol/l Magnesium (1.8-2.4) mg/dl Total Bilirubin (0.2-1) mg/dl Direct Bilirubin (0-0.2) mg/dl AST (15-37) U/L ALT (12-78) U/L Alkaline Phosphatase (45-117) U/L Troponin I (0-0.045) ng/ml Total Protein (6.4-8.2) gm/dl Albumin (3.4-5.0) gm/dl Lipase Cancelled (73-393) U/L COVID-19 Eval Order 12/18/20 12/18/20 Range/Units 18:29 18:34 WBC (4.8-10.8) K/uL RBC (4.2-5.4) M/uL Hgb (12.0-16.0) g/dL POC Hgb (12.0-16.0) g/dl Hct (37-47) % POC Hct (37-47) % MCV (80-100) fL MCH (25-34) pg MCHC (32-36) g/dL RDW Std Deviation (36.4-46.3) fL RDW Coeff of Veda (11.5-14.5) % Plt Count (130-400) K/uL Immature Gran % (Auto) % Neut % (Auto) % Lymph % (Auto) % [place] % (Auto) % Eos % (Auto) % Baso % (Auto) % Neut # (Auto) (1.4-6.5) K/uL Lymph # (Auto) (1.2-3.4) K/uL [place] # (Auto) (0.11-0.59) K/uL Eos # (Auto) (0-0.5) K/uL Baso # (Auto) (0-0.2) K/uL Immature Gran # (Auto) (0.00-0.02) K/uL Toxic Granulation Dohle Bodies Platelet Estimate (Normal) Anisocytosis PT (9.0-12.0) Seconds INR (0.9-1.1) APTT (21.0-31.0) Seconds PTT Ratio POC Sodium (135-144) mmol/L Sodium (136-145) mmol/L POC Potassium (3.3-5.0) mmol/L Potassium (3.5-5.1) mmol/L POC Chloride (101-112) mmol/L Chloride (98-107) mmol/L Carbon Dioxide (21-32) mmol/L POC Total CO2 (24-31) mmol/L Anion Gap (3-11) POC Anion Gap (16-25) mmol/L POC BUN (7-18) mg/dl BUN (7-18) mg/dl Creatinine (0.6-1.2) mg/dl POC Creatinine (0.6-1.3) mg/dl Est Cr Clr Drug Dosing ml/min Est GFR ( Amer) Est GFR (Non-Af Amer) BUN/Creatinine Ratio (10-20) Glucose (70-99) mg/dl POC Glucose (other) (70-99) mg/dl Lactate 1.5 (0.4-2.0) mmol/L Calcium (8.5-10.1) mg/dl POC Ioniz Calcium Magda (1.12-1.32) mmol/l Magnesium (1.8-2.4) mg/dl Total Bilirubin (0.2-1) mg/dl Direct Bilirubin (0-0.2) mg/dl AST (15-37) U/L ALT (12-78) U/L Alkaline Phosphatase (45-117) U/L Troponin I (0-0.045) ng/ml Total Protein (6.4-8.2) gm/dl Albumin (3.4-5.0) gm/dl Lipase (73-393) U/L COVID-19 Eval Order CovFluRsv at [facility] Imaging Data Radiologist's Impression: Head CT 12/18/20 15:45 CT head/brain wo con CLINICAL HISTORY: 60 years-old Female with syncope. Acute syncope TECHNIQUE: Multiple axial CT images of the head were obtained without contrast. A dose lowering technique was utilized adhering to the principles of ALARA. CT DOSE: 537.48 mGy.cm COMPARISON: None. FINDINGS: No acute intracranial hemorrhage, midline shift, intracranial mass, hydrocephalus, territorial ischemia or abnormal extra-axial collection. Senescent calcifications of the basal ganglia. Cerebral vascular calcifications. The calvarium is intact. Mastoid air cells are clear. Near-complete opacification of the right sphenoid sinus appears chronic. Tiny left supraorbital soft tissue contusion. Bilateral orbits are within normal limits. IMPRESSION: No acute intracranial abnormality. ACT 112: Negative or not required by law. The above report was generated using voice recognition software. It may contain grammatical, syntax or spelling errors. Electronically signed by: Cameron Fleming M.D. 12/18/2020 4:10 PM Chest X-Ray 12/18/20 15:46 XR chest 1V portable HISTORY: syncope COMPARISON: Chest 06/01/2020. FINDINGS: Right jugular Port-A-Cath which terminates in the SVC. Surgical clips noted within the left upper quadrant. The lungs are clear. No pleural effusions. No pneumothorax. The heart is normal in size. IMPRESSION: No acute process. ACT 112: Negative or not required by law. Electronically signed by: Jame Sotomayor M.D. 12/18/2020 4:51 PM Chest CTA 12/18/20 17:20 CHEST CTA for PULMONARY ARTERIES CT DOSE: 319.77 mGy.cm HISTORY: Syncope. TECHNIQUE: Multiaxial CT images of the chest were performed following the intra venous administration of contrast to evaluate the pulmonary arteries. Maximal intensity projection images were also obtained. A dose lowering technique was utilized adhering to the principles of ALARA. COMPARISON STUDY: Chest CT 10/12/2020. FINDINGS: Redemonstration of the hepatic and splenic capsular lesions consistent with metastatic disease. This is similar to the prior study. The spleen appears enlarged. This is also unchanged. Mild thickening of the mid to distal esophagus which is also unchanged. No pleural or pericardial effusions. The heart is top normal in size. Right-sided pacemaker is again noted. No mediastinal hilar lymphadenopathy. No suspicious lytic are blastic osseous lesions. The central airways are patent. No pneumothorax. Stable 3 mm subpleural nodule within the right upper lobe on image 157. No new or suspicious pulmonary nodules identified. Bibasilar linear densities favor subsegmental atelectasis. No focal lung consolidations to suggest pneumonia. Normal caliber thoracic aorta with no evidence for dissection. No filling defects within the pulmonary arteries to suggest pulmonary embolus. IMPRESSION: 1. No evidence for pulmonary embolus. 2. No focal lung consolidations to suggest pneumonia. 3. No change in the upper abdominal metastatic implants at the liver and spleen. ACT 112: Negative or not required by law. Electronically signed by: Jame Sotomayor M.D. 12/18/2020 6:10 PM ECG Data Indication: + syncope Rate (beats per minute): 85 Rhythm: + normal sinus ECG Intervals/blocks: + Normal KS and + Normal QT-c ECG ST segments: + Normal ST segments Additional Comments: QRS70 MDM Narrative 1539: The patient was evaluated in room A12. A complete history and physical exam was performed Cardiac monitoring: An order was placed for continuous cardiac monitoring. The monitor shows a rate of 80 with sinus rhythm 1804: Vital signs stable. Labs show a hemoglobin of down from 8.84 days ago which was down from 9.3 a day prior. Platelets are down to 29, down from 87 4 days ago down from 102 the day before. Potassium 2.9. Magnesium 1.7. Lactic acid elevated 2.8. Troponin elevated 0.072. Patient denies any chest pain or difficulty breathing. It is thought that the patient's troponin elevation could be due to demand ischemia due to her hemoglobin. Patient does have a history of chronic ITP. The patient states that she got IVIG 2 weeks ago but did not get any steroids. Spoke with Dr. 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 He states that the patient usually responds well to IVIG and he will evaluate the patient in the hospital tomorrow for IVIG. He does recommend 2 units of packed red blood cells. No platelet transfusion at this time. 1826: Patient's ileostomy was Hemoccult positive. Patient will also be started on Protonix bolus and drip. Dr. Gates [facility] hospitalist has been notified. Impression & Plan GIB (gastrointestinal bleeding), Hypomagnesemia, Chronic idiopathic thrombocytopenic purpura, Acute hypokalemia, Lactic acidemia, Elevated troponin Discharge Plan Visit Data Chief Complaint: Fall Stated Complaint: PASSED OUT AT WORK ED Provider: Franklin Castellon Discharge Problem: GIB (gastrointestinal bleeding), Hypomagnesemia, Chronic idiopathic thrombocytopenic purpura, Acute hypokalemia, Lactic acidemia, Elevated troponin Patient Disposition: Admitted As Inpatient Forms Stand Alone Forms: [facility] Prescriptions Prescriptions: No Action multivitamin Tablet 1 tab PO QAM RF: 0 latanoprost [Xalatan] 0.005 % Drops 1 drp OPB HS RF: 0 Alphagan P 0.1 % Drops 1 drp OPB TID RF: 0 cholecalciferol (vitamin D3) [Vitamin D3] 2,000 unit Capsule 2,000 unit PO QAM RF: 0 gabapentin 300 mg capsule 300 mg PO HS RF: 0 ondansetron HCl [Zofran] 8 mg Tablet 8 mg PO Q8H PRN (Reason: Nausea) RF: 0 prochlorperazine maleate 10 mg tablet 10 mg PO Q6 PRN (Reason: Nausea) RF: 0 Referrals Referrals: Robert Hernández [Primary Care Provider] - Discharge Problem: GIB (gastrointestinal bleeding) Qualifiers: GI bleed type/associated pathology: unspecified gastrointestinal hemorrhage type Qualified Code(s): K92.2 - Gastrointestinal hemorrhage, unspecified
[2020-12-18 19:30] LABS: Influenza A virus by PCR Negative (Neg); Influenza B virus by PCR Negative (Neg); RSV by PCR Negative (Neg); SARS CoV2 RNA(COVID-19) InHosp NEGATIVE (Negative)
--- NOTE | 2020-12-18 19:53 | History & Physical Report ---
Date of Service December 18, 2020 Assessment & Plan Admission and Anticipated Discharge Date Admission Date: 60 yo F w/ pMHx. 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 Thrombocytopenia w/ prior history of chronic ITP ptl count downtrending over the last 2 weeks currently 29 last IVIG 2 weeks prior - consult Dr. Licona and recommended not giving steroids but will evaluate for IVIG Normocytic anemia in the setting of chemotherapy, FOB+ w/o gross blood in ileostomy hgb 6.4 - order 2U pRBC's - recheck H&H 2 hours after transfusion Fall, unclear cause although potentially 2/2 anemia struck frontal bone CT-H w/ no acute intracranial abnormality continues to be at risk for subdural - neuro checks per protocol DM, bsg 208, unclear last a1c - A1c with AM labs - SSI ordered Elevated troponin to 0.072, type II supply demand mismatch potentially from anemia - trend Hypokalemia repleted in ER with 40 oral and 20 IV potassium - recheck with AM labs Hypomagnesemia repleted in ED - recheck with AM labs Code: full Diet: CC DMII DVT: SCD's given anemia History of Present Illness Chief Complaint: fall, anemia, thrombocytopenia Primary Care Provider: Robert Hernández Brooke Vasquez is here for a fall. She was feeling normal prior to the fall and walked 30 minutes to work without any difficulty. She felt lightheaded prior to the fall, and a coworker noted that her eyes rolled back in her head and she fell hitting a counter with the front of her head and then fell to the ground. She doesn't know how long she was down but a coworker called her name 7 times prior to her waking up. Brooke has a history of Mucinous adenocarcinoma of the appendix s/p colectomy and she has been on a chronic regimen of chemotherapeutics including 5FU, Oxyplatnin, and Avastin. She has recently developed hand swelling and paresthesias, and recently started Gabapentin. She has a history of chronic ITP with platelet counts as low as single digits previously. She had IVIG last 2 weeks ago. Her platelets were 120 2 weeks prior, 89 1 week ago and 102 on . Allergies Allergy/AdvReac Type Severity Reaction Status Date / Time pineapple Allergy Severe anaphylaxis Verified 12/18/20 17:29 [place] [employer]ivatives Allergy Intermediate hives Verified 12/18/20 17:29 clarithromycin Allergy Intermediate hives Verified 12/18/20 17:29 naproxen Allergy Intermediate hives Verified 12/18/20 17:29 Penicillins Allergy Intermediate hives Verified 12/18/20 17:29 tomato Allergy Intermediate hives, Verified 12/18/20 17:29 throat tightness latex Allergy Mild rash Verified 12/18/20 17:29 Cantaloupe Allergy Intermediate hives, Uncoded 12/18/20 17:29 throat tightness Home Medications Medication Instructions Recorded Confirmed Type Alphagan P 1 drp OPB TID 05/12/19 12/18/20 History cholecalciferol (vitamin D3) 2,000 unit PO QAM 05/12/19 12/18/20 History [Vitamin D3] latanoprost [Xalatan] 1 drp OPB HS 05/12/19 12/18/20 History multivitamin 1 tab PO QAM 05/12/19 12/18/20 History gabapentin 300 mg PO HS 12/18/20 12/18/20 History ondansetron HCl [Zofran] 8 mg PO Q8H PRN 12/18/20 12/18/20 History prochlorperazine maleate 10 mg PO Q6 PRN 12/18/20 12/18/20 History Past Med/Surg History Medical History Anemia chronic, baseline hgb 9-11 range per chart review Borderline diabetes diet controlled Chronic ITP (idiopathic thrombocytopenia) platelet WNL on 06/01/20 labs High cholesterol Ileostomy care + present Mucinous adenocarcinoma of appendix (~03/2013) 2013 Pancreatitis post-op (2014) Primary cancer of appendix 2013 s/p surgical intervention, chemo currently Surgical History Encounter for insertion of venous access port 2012 (subsequent removal) History of laparotomy USO + salipngectomy Hx laparoscopic cholecystectomy 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 Family History Other Diabetes Heart disease Hypertension Stroke Social History Smoking Status: Never smoker Second Hand Exposure: No; Hx Alcohol Use: No Hx Substance Use: No Preferred Language: [place] Communication Ability: Effective Office Specialist Required: No Beliefs That Will Affect Care: None marital status: Current Living Situation: Family Current Living Situation Comment: lives with son Other Information That Helps Us Care for You: No Feels Safe at Home: Yes Assistive Devices: None Review of Systems Review of Systems: Constitutional: denies fevers, chills, nausea, vomiting, diaphoresis, night sweats admits fatigue, general weakness, weight loss 7lbs over 2 weeks Head: denies headache, confusion admits trauma, LOC, vision changes admits trauma, LOC, lightheadedness Neurologic: denies slurring of speech, focal weakness admits syncope, numbness and tingling (chronic relates to chemo) ENT: denies rhinorrhea, sneezing, sore throat admits stuffiness Cardiac: denies palpitations, chest pain, leg swelling, PND, BELLA Pulm.: denies cough, sputum production, hemoptysis GI: denies abdominal pain, gross blood in ileostomy bag, change in output volume or color : denies dysuria, urgency admits polyuria relates to increased PO intake Physical Exam Constitutional: WD/WN, vitals as above Eyes: PERRL, conjunctivae normal, anicteric sclerae ENMT: external ear and nose normal, oropharynx normal Neck: normal visual inspection Respiratory: normal respiratory effort, lungs clear to auscultation Cardiovascular: RRR, no murmur, no edema Gastrointestinal (Abdomen): - ileostomy in-place c/d/i no redness or swelling around site - soft, nTTP nl. bowel sounds Musculoskeletal: no cyanosis or clubbing, extremities motor strength 5/5 Skin: no rashes, warm and dry (small bruise on left upper leg) Neurologic: CN's II-XI intact bilaterally; no focal motor deficits Psychiatric: A+Ox3, euthymic affect Results & Data Results & Data ([facility]) Vital Signs (Past 12 Hours) Vital Signs Temp Pulse Resp BP Pulse Ox 12/18/20 19:00 90 18 160/89 H 100 12/18/20 17:36 100 12/18/20 17:30 87 20 134/65 100 04/27/21 15:23 37.0 C 92 H 17 142/58 H 100 CBC Results Results Complete Blood Count Results: RBC 2.38 M/uL (4.2-5.4) L 12/19/20 WBC 2.96 K/uL (4.8-10.8) L 12/19/20 Hgb 7.0 g/dL (12.0-16.0) L 12/19/20 Hct 21.4 % (37-47) L 12/19/20 Plt Count 20 K/uL (130-400) L* 12/19/20 Chemistry (BMP) Results BMP Results: Sodium 141 mmol/L (136-145) 12/19/20 Potassium 3.5 mmol/L (3.5-5.1) 12/19/20 Chloride 112 mmol/L (98-107) H 12/19/20 BUN 12 mg/dl (7-18) 12/19/20 Creatinine 1.25 mg/dl (0.6-1.2) H 12/19/20 Glucose 154 mg/dl (70-99) H 12/19/20 Code Status & VTE Plan VTE Prophylaxis Plan VTE Prophylaxis will be ordered: Yes Supervising Physician Co-Signing Physician Notes Attending addendum: I have physically seen this patient, have supervised the medical residents activities, and agree with the H&P unless as otherwise noted. Assessment and Plan: Symptomatic anemia- Hemoglobin 6.4 upon admission Transfuse 2 units PRBCs. H&H every 6 hours Fecal occult blood positive in ileostomy Consult gastroenterology Elevated troponin- 0.072 upon admission- Type II FL, supply demand mismatch The patient will be admitted to telemetry for serial cardiac enzymes, serial EKG's, cardiac rhythm monitoring and a 2-D echocardiogram with Dopplers. Thrombocytopenia/chronic ITP- Platelets 29 admission, significantly lower than baseline Following with Dr. Licona, who recommends no steroids tonight, and he will reassess for potential IVIG in the a.m. Diabetes mellitus- Glucose 208 upon admission Placed on Accu-Cheks before meals and at bedtime with NovoLog coverage per scale Check hemoglobin A1c Remaining orders and notations as noted Resident Activity Tracking Resident Involvement: Resident Care Provided Care Provided: Adult [facility]
[2020-12-18] MEDS: PANTOprazole 40 MG in DEXTROSE 5% 100 ML IV SCH ×2 (20:02→23:22)
[2020-12-18] MEDS ORDERED: POTASSIUM CHLORIDE 10 MEQ TABCR PO ONE (21:36)
[2020-12-18] MEDS: POTASSIUM CHLORIDE / WTR 10 MEQ/100 ML PLCT IV SCH (21:39)
[2020-12-18] MEDS ORDERED: GLUCOSE 10 TABS/TUBE PO PRN (22:16)
[2020-12-18] MEDS ORDERED: PROCHLORPERAZINE MALEATE 10 MG TAB PO PRN (22:16)
[2020-12-18] MEDS ORDERED: CARBOHYDRATES FOR HYPOGLYCEMIA PO PRN (22:16)
[2020-12-18] MEDS ORDERED: DEXTROSE 50% 50 ML SYRINGE IV PRN (22:16)
[2020-12-18] MEDS ORDERED: GLUCAGON FOR INJ 1 MG VIAL SQ PRN (22:16)
[2020-12-18] MEDS ORDERED: ACETAMINOPHEN 325 MG TAB PO PRN (22:16)
[2020-12-18] MEDS ORDERED: GLUCOSE 40% GEL 15 GM TUBE PO PRN (22:16)
[2020-12-18] MEDS ORDERED: ONDANSETRON 4 MG OD TAB PO PRN (22:36)
[2020-12-18] MEDS: GABAPENTIN 300 MG CAP PO SCH (23:18)
[2020-12-18] MEDS: LATANOPROST 0.005% OP SOLN 2.5 ML BTL OPB SCH (23:19)
[2020-12-18] MEDS: INSULIN ASPART 100 UNITS/ML 3 ML PEN SC SCH (23:20)
[2020-12-18] MEDS: ALPHAGAN~ORDER AWAITING ACTION SCH (23:40)
[2020-12-19] MEDS ORDERED: HEPARIN 100 UNIT/ML 5ML FLUSH FLUSH PRN (00:03)
[2020-12-19 03:23] LABS: Hematocrit (blood only) 21.4 % (37-47); Mean Corpuscular Hemoglobin 29.4 pg (25-34); Mean Corpuscular Hgb Conc 32.7 g/dL (32-36); Mean Corpuscular Volume 89.9 fL (80-100); Platelet Count 20 K/uL (130-400); RDW Standard Deviation 65.6 fL (36.4-46.3); Red Blood Count 2.38 M/uL (4.2-5.4); White Blood Count 2.96 K/uL (4.8-10.8)
[2020-12-19 03:25] LABS: Anisocytosis Present; Basophils # (auto) 0.01 K/uL (0-0.2); Basophils % (auto) 0.3 %; Dohle Bodies 1+; Eosinophils # (auto) 0.13 K/uL (0-0.5); Eosinophils % (auto) 4.4 %; Giant Platelets 1+; Lymphocytes # (auto) 0.89 K/uL (1.2-3.4); Lymphocytes % (auto) 30.1 %; Monocytes # (auto) 0.46 K/uL (0.11-0.59); Monocytes % (auto) 15.5 %; Neutrophils # (auto) 1.47 K/uL (1.4-6.5); Neutrophils % (auto) 49.7 %; Platelet Estimate SIGNIFIC DECREASED (Normal); Toxic Granulation 1+
[2020-12-19 03:33] LABS: BUN Creatinine Ratio 9.3 (10-20); Calcium 7.5 mg/dl (8.5-10.1); Creatinine Clr Calc Pharmacy 42.1 ml/min; Est GFR (African American) 54.5; Magnesium 2.1 mg/dl (1.8-2.4); Phosphorus 1.6 mg/dl (2.5-4.9); Potassium 3.5 mmol/L (3.5-5.1)
[2020-12-19] MEDS: PANTOprazole 40 MG in DEXTROSE 5% 100 ML IV SCH ×4 (04:38→20:41)
[2020-12-19 06:05] LABS: Appearance Urine Clear (Clear); Bilirubin Urine Negative (Negative); Blood Urine Negative (Negative); Color Urine Yellow; Glucose Urine UA 1+ (Negative); Ketones Urine Negative (Negative); Leukocyte Esterase Urine Negative (Negative); Nitrite Urine Negative (Negative); Protein Urine Negative (Negative); Specific Gravity Urine 1.026 (1.000-1.030); Urobilinogen Urine Negative (Negative)
[2020-12-19 06:43] LABS: Estimated Average Glucose 137 mg/dl; Hemoglobin A1C 6.4 % (4.5-5.6)
[2020-12-19] MEDS ORDERED: POTASSIUM PHOS 3 MMOL/1 ML INFUSION IV STA (07:25)
[2020-12-19] MEDS ORDERED: POTASSIUM PHOSPHATE 21 MMOL in SODIUM CHLORIDE 0.9% 500 ML IV ONE (08:00)
[2020-12-19] MEDS ORDERED: IMMUNE GLOBULIN IV ONE (08:01)
[2020-12-19] MEDS: MULTIVITAMIN TAB PO SCH (08:06)
[2020-12-19] MEDS: ALPHAGAN~ORDER AWAITING ACTION SCH ×3 (08:07→22:19)
[2020-12-19] MEDS: INSULIN ASPART 100 UNITS/ML 3 ML PEN SC SCH ×4 (09:06→20:12)
--- NOTE | 2020-12-19 09:20 | Hospitalist Progress Note ---
Date of Service December 19, 2020 Assessment & Plan (1) GIB (gastrointestinal bleeding): 60 yo F w/ pMHx. 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 Thrombocytopenia w/ prior history of chronic ITP - ptl count downtrending over the last several weeks, 29 on admission with downtrend this AM - last IVIG 2 weeks prior to admission - Dr. Licona consulted: recommended course of IVIG today with potential additional course tomorrow Normocytic anemia in the setting of chemotherapy - FOB+ w/o gross blood in ileostomy - hgb 6.4 on admission, recheck in AM - transfused 2 units pRBC's - continue to monitor for signs of benito blood loss, but believe this anemia is multifactorial at this time and not acute Fall, unclear cause although potentially 2/2 anemia - struck left frontal bone - CT-Head w/ no acute intracranial abnormality - will continue to be at risk for subdural hematoma until >1 month out - neuro checks per protocol Type II Diabetes: - bsg 208, A1c 6.4 - SSI ordered Elevated troponin: - 0.072 on admission, peaked at 0.090 with subsequent downtrend - type II supply demand mismatch Electrolyte abnormalities: - hypokalemic, hypophosphatemic, and hypomagnesemic on admission - repleted in ER - recheck's in AM demonstrated improved levels but not complete resolution Code: full Diet: CC DMII DVT: SCD's given anemia (2) Elevated troponin: (3) Chronic idiopathic thrombocytopenic purpura: (4) Diabetes: (5) Ileostomy care: (6) Dehydration: (7) Acute renal failure: (8) Acute hypokalemia: (9) Hypomagnesemia: Admission and Anticipated Discharge Date Admission Date: December 18, 2020 Supervising Physician Co-Signing Physician Notes I personally examined the patient and verified all amin points of history and exam, discussed case, and agree with decision making with Dr Ozuna. Feeling okay. No new complaints. No headache. Generally feels fine. Case discussed with oncologyinput appreciated. Vitals noted, in general she is awake alert pleasant no distress. HEENT normocephalic atraumatic mucous membranes moist. Breathing unlabored no accessory muscle use good effort. Skin shows no rashes no pallor or icterus. Neuro shows no focal deficits. Syncopelikely due to anemia/volume depletion/overall weakness from her chemotherapy regimenfortunately no ominous causes. Questionable whether or not she hit her head based on historycertainly no evidence of head trauma or intracranial bleed right now, given her thrombocytopenia, I did outline loosely what a late subdural/venous type bleed could look like in case she were to start to develop subtle symptoms a month from now, however I did also note this would be fairly unlikely. Antineoplastic chemotherapy induced pancytopenia/thrombocytopenia likely disproportionately worse due to ITPtransfused 2 units for anemia, no signs of infection with leukopenia, IVIG for ITP portion of thrombocytopenia. Dispositionif she continues to look the stable, hemoglobin stays improved post transfusion, and platelets start to improve with IVIG, hopefully home tomorrow. Subjective Patient feels overall well this morning, and has a slight improvement in energy following blood transfusions. Only recollection of the events leading to her fall is what others have told her about the fall. Feels the knot on her forehead from the bump, but believes that this has reduced greatly in size from when she first noticed it and is not painful. Review of Systems Review of Systems: All systems reviewed & are unremarkable except as noted in Subjective Physical Exam Constitutional: WD/WN, vitals as above Eyes: PERRL, conjunctivae normal, anicteric sclerae Respiratory: normal respiratory effort, lungs clear to auscultation Auscultation: no crackles, no rales, no rhonchi and no wheezes Cardiovascular: Rate/Rhythm: regular rate and regular rhythm Heart Sounds: no gallop, no murmur and no cardiac rub Vessels: normal peripheral pulses; no JVD Extremities: no edema Gastrointestinal (Abdomen): Percussion/Palpation: abdomen soft; abdomen nontender and no guarding Musculoskeletal: no cyanosis or clubbing, extremities motor strength 5/5 Skin: no rashes, warm and dry Neurologic: PERRL, EOMI, accommodation nl, no face palsy, no dysarthria CN's II-XI intact bilaterally and moves all extremities Psychiatric: Orientation: alert and oriented x 3 Results & Data Results & Data ([facility]) Vital Signs (Past 12 Hours) Vital Signs Temp Pulse Pulse Resp BP BP BP 12/19/20 08:05 36.6 C 99 H 20 152/72 H 12/19/20 07:45 36.9 C 80 20 119/59 L 12/19/20 07:30 36.8 C 76 20 133/73 12/19/20 07:00 36.8 C 81 20 121/75 12/19/20 06:45 37.0 C 81 18 123/74 12/19/20 06:27 37 C 87 18 103/64 12/19/20 03:24 37.1 C 78 16 120/71 12/18/20 23:39 91 H 12/18/20 23:01 37.4 C 91 H 18 138/85 12/18/20 22:49 37.1 C 82 16 130/77 12/18/20 21:30 84 24 126/64 Pulse Ox 12/19/20 08:05 90 12/19/20 07:45 100 12/19/20 07:30 97 12/19/20 07:00 100 12/19/20 06:45 99 12/19/20 06:27 98 12/19/20 03:24 100 12/18/20 23:39 12/18/20 23:01 98 12/18/20 22:49 100 12/18/20 21:30 100 Laboratory Results 12/19/20 12/19/20 12/19/20 Range/Units Unknown 07:20 05:59 WBC (4.8-10.8) K/uL RBC (4.2-5.4) M/uL Hgb (12.0-16.0) g/dL POC Hgb (12.0-16.0) g/dl Hct (37-47) % POC Hct (37-47) % MCV (80-100) fL MCH (25-34) pg MCHC (32-36) g/dL RDW Std Deviation (36.4-46.3) fL RDW Coeff of Veda (11.5-14.5) % Plt Count (130-400) K/uL Immature Gran % (Auto) % Neut % (Auto) % Lymph % (Auto) % [place] % (Auto) % Eos % (Auto) % Baso % (Auto) % Neut # (Auto) (1.4-6.5) K/uL Lymph # (Auto) (1.2-3.4) K/uL [place] # (Auto) (0.11-0.59) K/uL Eos # (Auto) (0-0.5) K/uL Baso # (Auto) (0-0.2) K/uL Immature Gran # (Auto) (0.00-0.02) K/uL Toxic Granulation Dohle Bodies Platelet Estimate (Normal) Giant Platelets Anisocytosis PT (9.0-12.0) Seconds INR (0.9-1.1) APTT (21.0-31.0) Seconds PTT Ratio POC Sodium (135-144) mmol/L Sodium (136-145) mmol/L POC Potassium (3.3-5.0) mmol/L Potassium (3.5-5.1) mmol/L POC Chloride (101-112) mmol/L Chloride (98-107) mmol/L Carbon Dioxide (21-32) mmol/L POC Total CO2 (24-31) mmol/L Anion Gap (3-11) POC Anion Gap (16-25) mmol/L POC BUN (7-18) mg/dl BUN (7-18) mg/dl Creatinine (0.6-1.2) mg/dl POC Creatinine (0.6-1.3) mg/dl Est Cr Clr Drug Dosing ml/min Est GFR ( Amer) Est GFR (Non-Af Amer) BUN/Creatinine Ratio (10-20) Glucose (70-99) mg/dl POC Glucose 129 H (70-99) mg/dl POC Glucose (other) (70-99) mg/dl Estimat Average Glucose mg/dl Hemoglobin A1c (4.5-5.6) % Lactate (0.4-2.0) mmol/L Calcium (8.5-10.1) mg/dl POC Ioniz Calcium Magda (1.12-1.32) mmol/l Phosphorus (2.5-4.9) mg/dl Magnesium (1.8-2.4) mg/dl Total Bilirubin (0.2-1) mg/dl Direct Bilirubin (0-0.2) mg/dl AST (15-37) U/L ALT (12-78) U/L Alkaline Phosphatase (45-117) U/L Troponin I 0.075 H* (0-0.045) ng/ml Total Protein (6.4-8.2) gm/dl Albumin (3.4-5.0) gm/dl Lipase (73-393) U/L Urine Color Yellow Urine Appearance Clear (Clear) Urine pH 6.0 (4.5-7.5) Ur Specific [place] 1.026 (1.000-1.030) Urine Protein Negative (Negative) Urine Glucose (UA) 1+ H (Negative) Urine Ketones Negative (Negative) Urine Blood Negative (Negative) Urine Nitrite Negative (Negative) Urine Bilirubin Negative (Negative) Urine Urobilinogen Negative (Negative) Ur Leukocyte Esterase Negative (Negative) COVID-19 Eval Order SARS-CoV-2 (PCR) (Negative) Hepatitis C Ab Screen Influenza Type A (PCR) (Neg) Influenza Type B (PCR) (Neg) RSV (RT-PCR) (Neg) Blood Type Antibody Screen Antibody Identification Antibody ID Comment Crossmatch 12/19/20 12/19/20 12/19/20 Range/Units 05:59 02:57 02:57 WBC (4.8-10.8) K/uL RBC (4.2-5.4) M/uL Hgb (12.0-16.0) g/dL POC Hgb (12.0-16.0) g/dl Hct (37-47) % POC Hct (37-47) % MCV (80-100) fL MCH (25-34) pg MCHC (32-36) g/dL RDW Std Deviation (36.4-46.3) fL RDW Coeff of Veda (11.5-14.5) % Plt Count (130-400) K/uL Immature Gran % (Auto) % Neut % (Auto) % Lymph % (Auto) % [place] % (Auto) % Eos % (Auto) % Baso % (Auto) % Neut # (Auto) (1.4-6.5) K/uL Lymph # (Auto) (1.2-3.4) K/uL [place] # (Auto) (0.11-0.59) K/uL Eos # (Auto) (0-0.5) K/uL Baso # (Auto) (0-0.2) K/uL Immature Gran # (Auto) (0.00-0.02) K/uL Toxic Granulation Dohle Bodies Platelet Estimate (Normal) Giant Platelets Anisocytosis PT (9.0-12.0) Seconds INR (0.9-1.1) APTT (21.0-31.0) Seconds PTT Ratio POC Sodium (135-144) mmol/L Sodium 141 (136-145) mmol/L POC Potassium (3.3-5.0) mmol/L Potassium 3.5 D (3.5-5.1) mmol/L POC Chloride (101-112) mmol/L Chloride 112 H (98-107) mmol/L Carbon Dioxide 25 (21-32) mmol/L POC Total CO2 (24-31) mmol/L Anion Gap 4.0 (3-11) POC Anion Gap (16-25) mmol/L POC BUN (7-18) mg/dl BUN 12 (7-18) mg/dl Creatinine 1.25 H (0.6-1.2) mg/dl POC Creatinine (0.6-1.3) mg/dl Est Cr Clr Drug Dosing 42.1 ml/min Est GFR ( Amer) 54.5 Est GFR (Non-Af Amer) 47.0 BUN/Creatinine Ratio 9.3 L (10-20) Glucose 154 H (70-99) mg/dl POC Glucose (70-99) mg/dl POC Glucose (other) (70-99) mg/dl Estimat Average Glucose 137 mg/dl Hemoglobin A1c 6.4 H (4.5-5.6) % Lactate (0.4-2.0) mmol/L Calcium 7.5 L (8.5-10.1) mg/dl POC Ioniz Calcium Magda (1.12-1.32) mmol/l Phosphorus 1.6 L (2.5-4.9) mg/dl Magnesium 2.1 (1.8-2.4) mg/dl Total Bilirubin (0.2-1) mg/dl Direct Bilirubin (0-0.2) mg/dl AST (15-37) U/L ALT (12-78) U/L Alkaline Phosphatase (45-117) U/L Troponin I (0-0.045) ng/ml Total Protein (6.4-8.2) gm/dl Albumin (3.4-5.0) gm/dl Lipase (73-393) U/L Urine Color Urine Appearance (Clear) Urine pH (4.5-7.5) Ur Specific [place] (1.000-1.030) Urine Protein (Negative) Urine Glucose (UA) (Negative) Urine Ketones (Negative) Urine Blood (Negative) Urine Nitrite (Negative) Urine Bilirubin (Negative) Urine Urobilinogen (Negative) Ur Leukocyte Esterase (Negative) COVID-19 Eval Order SARS-CoV-2 (PCR) (Negative) Hepatitis C Ab Screen Pending Influenza Type A (PCR) (Neg) Influenza Type B (PCR) (Neg) RSV (RT-PCR) (Neg) Blood Type Antibody Screen Antibody Identification Antibody ID Comment Crossmatch 12/19/20 12/18/20 12/18/20 Range/Units 02:57 23:08 22:41 WBC 2.96 L (4.8-10.8) K/uL RBC 2.38 L (4.2-5.4) M/uL Hgb 7.0 L (12.0-16.0) g/dL POC Hgb (12.0-16.0) g/dl Hct 21.4 L (37-47) % POC Hct (37-47) % MCV 89.9 (80-100) fL MCH 29.4 (25-34) pg MCHC 32.7 (32-36) g/dL RDW Std Deviation 65.6 H (36.4-46.3) fL RDW Coeff of Veda 20.0 H (11.5-14.5) % Plt Count 20 L* (130-400) K/uL Immature Gran % (Auto) 0.0 % Neut % (Auto) 49.7 % Lymph % (Auto) 30.1 % [place] % (Auto) 15.5 % Eos % (Auto) 4.4 % Baso % (Auto) 0.3 % Neut # (Auto) 1.47 (1.4-6.5) K/uL Lymph # (Auto) 0.89 L (1.2-3.4) K/uL [place] # (Auto) 0.46 (0.11-0.59) K/uL Eos # (Auto) 0.13 (0-0.5) K/uL Baso # (Auto) 0.01 (0-0.2) K/uL Immature Gran # (Auto) 0.00 (0.00-0.02) K/uL Toxic Granulation 1+ Dohle Bodies 1+ Platelet Estimate SIGNIFIC DECREASED (Normal) Giant Platelets 1+ Anisocytosis Present PT (9.0-12.0) Seconds INR (0.9-1.1) APTT (21.0-31.0) Seconds PTT Ratio POC Sodium (135-144) mmol/L Sodium (136-145) mmol/L POC Potassium (3.3-5.0) mmol/L Potassium (3.5-5.1) mmol/L POC Chloride (101-112) mmol/L Chloride (98-107) mmol/L Carbon Dioxide (21-32) mmol/L POC Total CO2 (24-31) mmol/L Anion Gap (3-11) POC Anion Gap (16-25) mmol/L POC BUN (7-18) mg/dl BUN (7-18) mg/dl Creatinine (0.6-1.2) mg/dl POC Creatinine (0.6-1.3) mg/dl Est Cr Clr Drug Dosing ml/min Est GFR ( Amer) Est GFR (Non-Af Amer) BUN/Creatinine Ratio (10-20) Glucose (70-99) mg/dl POC Glucose 157 H (70-99) mg/dl POC Glucose (other) (70-99) mg/dl Estimat Average Glucose mg/dl Hemoglobin A1c (4.5-5.6) % Lactate (0.4-2.0) mmol/L Calcium (8.5-10.1) mg/dl POC Ioniz Calcium Magda (1.12-1.32) mmol/l Phosphorus (2.5-4.9) mg/dl Magnesium (1.8-2.4) mg/dl Total Bilirubin (0.2-1) mg/dl Direct Bilirubin (0-0.2) mg/dl AST (15-37) U/L ALT (12-78) U/L Alkaline Phosphatase (45-117) U/L Troponin I 0.090 H* (0-0.045) ng/ml Total Protein (6.4-8.2) gm/dl Albumin (3.4-5.0) gm/dl Lipase (73-393) U/L Urine Color Urine Appearance (Clear) Urine pH (4.5-7.5) Ur Specific [place] (1.000-1.030) Urine Protein (Negative) Urine Glucose (UA) (Negative) Urine Ketones (Negative) Urine Blood (Negative) Urine Nitrite (Negative) Urine Bilirubin (Negative) Urine Urobilinogen (Negative) Ur Leukocyte Esterase (Negative) COVID-19 Eval Order SARS-CoV-2 (PCR) (Negative) Hepatitis C Ab Screen Influenza Type A (PCR) (Neg) Influenza Type B (PCR) (Neg) RSV (RT-PCR) (Neg) Blood Type Antibody Screen Antibody Identification Antibody ID Comment Crossmatch 12/18/20 12/18/20 12/18/20 Range/Units 18:34 18:34 18:29 WBC (4.8-10.8) K/uL RBC (4.2-5.4) M/uL Hgb (12.0-16.0) g/dL POC Hgb (12.0-16.0) g/dl Hct (37-47) % POC Hct (37-47) % MCV (80-100) fL MCH (25-34) pg MCHC (32-36) g/dL RDW Std Deviation (36.4-46.3) fL RDW Coeff of Veda (11.5-14.5) % Plt Count (130-400) K/uL Immature Gran % (Auto) % Neut % (Auto) % Lymph % (Auto) % [place] % (Auto) % Eos % (Auto) % Baso % (Auto) % Neut # (Auto) (1.4-6.5) K/uL Lymph # (Auto) (1.2-3.4) K/uL [place] # (Auto) (0.11-0.59) K/uL Eos # (Auto) (0-0.5) K/uL Baso # (Auto) (0-0.2) K/uL Immature Gran # (Auto) (0.00-0.02) K/uL Toxic Granulation Dohle Bodies Platelet Estimate (Normal) Giant Platelets Anisocytosis PT (9.0-12.0) Seconds INR (0.9-1.1) APTT (21.0-31.0) Seconds PTT Ratio POC Sodium (135-144) mmol/L Sodium (136-145) mmol/L POC Potassium (3.3-5.0) mmol/L Potassium (3.5-5.1) mmol/L POC Chloride (101-112) mmol/L Chloride (98-107) mmol/L Carbon Dioxide (21-32) mmol/L POC Total CO2 (24-31) mmol/L Anion Gap (3-11) POC Anion Gap (16-25) mmol/L POC BUN (7-18) mg/dl BUN (7-18) mg/dl Creatinine (0.6-1.2) mg/dl POC Creatinine (0.6-1.3) mg/dl Est Cr Clr Drug Dosing ml/min Est GFR ( Amer) Est GFR (Non-Af Amer) BUN/Creatinine Ratio (10-20) Glucose (70-99) mg/dl POC Glucose (70-99) mg/dl POC Glucose (other) (70-99) mg/dl Estimat Average Glucose mg/dl Hemoglobin A1c (4.5-5.6) % Lactate 1.5 (0.4-2.0) mmol/L Calcium (8.5-10.1) mg/dl POC Ioniz Calcium Magda (1.12-1.32) mmol/l Phosphorus (2.5-4.9) mg/dl Magnesium (1.8-2.4) mg/dl Total Bilirubin (0.2-1) mg/dl Direct Bilirubin (0-0.2) mg/dl AST (15-37) U/L ALT (12-78) U/L Alkaline Phosphatase (45-117) U/L Troponin I (0-0.045) ng/ml Total Protein (6.4-8.2) gm/dl Albumin (3.4-5.0) gm/dl Lipase (73-393) U/L Urine Color Urine Appearance (Clear) Urine pH (4.5-7.5) Ur Specific [place] (1.000-1.030) Urine Protein (Negative) Urine Glucose (UA) (Negative) Urine Ketones (Negative) Urine Blood (Negative) Urine Nitrite (Negative) Urine Bilirubin (Negative) Urine Urobilinogen (Negative) Ur Leukocyte Esterase (Negative) COVID-19 Eval Order SARS-CoV-2 (PCR) NEGATIVE (Negative) Hepatitis C Ab Screen Influenza Type A (PCR) Negative (Neg) Influenza Type B (PCR) Negative (Neg) RSV (RT-PCR) Negative (Neg) Blood Type B Positive Antibody Screen POSITIVE A Antibody Identification Anti-E Antibody ID Comment Crossmatch See Detail 12/18/20 12/18/20 12/18/20 Range/Units 18:29 16:44 16:23 WBC (4.8-10.8) K/uL RBC (4.2-5.4) M/uL Hgb (12.0-16.0) g/dL POC Hgb 8.5 L (12.0-16.0) g/dl Hct (37-47) % POC Hct 25 L (37-47) % MCV (80-100) fL MCH (25-34) pg MCHC (32-36) g/dL RDW Std Deviation (36.4-46.3) fL RDW Coeff of Veda (11.5-14.5) % Plt Count (130-400) K/uL Immature Gran % (Auto) % Neut % (Auto) % Lymph % (Auto) % [place] % (Auto) % Eos % (Auto) % Baso % (Auto) % Neut # (Auto) (1.4-6.5) K/uL Lymph # (Auto) (1.2-3.4) K/uL [place] # (Auto) (0.11-0.59) K/uL Eos # (Auto) (0-0.5) K/uL Baso # (Auto) (0-0.2) K/uL Immature Gran # (Auto) (0.00-0.02) K/uL Toxic Granulation Dohle Bodies Platelet Estimate (Normal) Giant Platelets Anisocytosis PT (9.0-12.0) Seconds INR (0.9-1.1) APTT (21.0-31.0) Seconds PTT Ratio POC Sodium 138 (135-144) mmol/L Sodium (136-145) mmol/L POC Potassium 2.9 L (3.3-5.0) mmol/L Potassium (3.5-5.1) mmol/L POC Chloride 101 (101-112) mmol/L Chloride (98-107) mmol/L Carbon Dioxide (21-32) mmol/L POC Total CO2 26 (24-31) mmol/L Anion Gap (3-11) POC Anion Gap 15.0 L (16-25) mmol/L POC BUN 15 (7-18) mg/dl BUN (7-18) mg/dl Creatinine (0.6-1.2) mg/dl POC Creatinine 1.3 (0.6-1.3) mg/dl Est Cr Clr Drug Dosing ml/min Est GFR ( Amer) Est GFR (Non-Af Amer) BUN/Creatinine Ratio (10-20) Glucose (70-99) mg/dl POC Glucose (70-99) mg/dl POC Glucose (other) 210 H (70-99) mg/dl Estimat Average Glucose mg/dl Hemoglobin A1c (4.5-5.6) % Lactate (0.4-2.0) mmol/L Calcium (8.5-10.1) mg/dl POC Ioniz Calcium Magda 1.09 L (1.12-1.32) mmol/l Phosphorus (2.5-4.9) mg/dl Magnesium (1.8-2.4) mg/dl Total Bilirubin (0.2-1) mg/dl Direct Bilirubin (0-0.2) mg/dl AST (15-37) U/L ALT (12-78) U/L Alkaline Phosphatase (45-117) U/L Troponin I (0-0.045) ng/ml Total Protein (6.4-8.2) gm/dl Albumin (3.4-5.0) gm/dl Lipase Cancelled (73-393) U/L Urine Color Urine Appearance (Clear) Urine pH (4.5-7.5) Ur Specific [place] (1.000-1.030) Urine Protein (Negative) Urine Glucose (UA) (Negative) Urine Ketones (Negative) Urine Blood (Negative) Urine Nitrite (Negative) Urine Bilirubin (Negative) Urine Urobilinogen (Negative) Ur Leukocyte Esterase (Negative) COVID-19 Eval Order CovFluRsv at [facility] SARS-CoV-2 (PCR) (Negative) Hepatitis C Ab Screen Influenza Type A (PCR) (Neg) Influenza Type B (PCR) (Neg) RSV (RT-PCR) (Neg) Blood Type Antibody Screen Antibody Identification Antibody ID Comment Crossmatch 12/18/20 12/18/20 12/18/20 Range/Units 16:23 16:23 16:23 WBC (4.8-10.8) K/uL RBC (4.2-5.4) M/uL Hgb (12.0-16.0) g/dL POC Hgb (12.0-16.0) g/dl Hct (37-47) % POC Hct (37-47) % MCV (80-100) fL MCH (25-34) pg MCHC (32-36) g/dL RDW Std Deviation (36.4-46.3) fL RDW Coeff of Veda (11.5-14.5) % Plt Count (130-400) K/uL Immature Gran % (Auto) % Neut % (Auto) % Lymph % (Auto) % [place] % (Auto) % Eos % (Auto) % Baso % (Auto) % Neut # (Auto) (1.4-6.5) K/uL Lymph # (Auto) (1.2-3.4) K/uL [place] # (Auto) (0.11-0.59) K/uL Eos # (Auto) (0-0.5) K/uL Baso # (Auto) (0-0.2) K/uL Immature Gran # (Auto) (0.00-0.02) K/uL Toxic Granulation Dohle Bodies Platelet Estimate (Normal) Giant Platelets Anisocytosis PT 11.4 (9.0-12.0) Seconds INR 1.1 (0.9-1.1) APTT 25.2 (21.0-31.0) Seconds PTT Ratio 1.0 POC Sodium (135-144) mmol/L Sodium 137 (136-145) mmol/L POC Potassium (3.3-5.0) mmol/L Potassium 2.9 L (3.5-5.1) mmol/L POC Chloride (101-112) mmol/L Chloride 105 (98-107) mmol/L Carbon Dioxide 26 (21-32) mmol/L POC Total CO2 (24-31) mmol/L Anion Gap 6.0 (3-11) POC Anion Gap (16-25) mmol/L POC BUN (7-18) mg/dl BUN 15 (7-18) mg/dl Creatinine 1.39 H (0.6-1.2) mg/dl POC Creatinine (0.6-1.3) mg/dl Est Cr Clr Drug Dosing 37.9 ml/min Est GFR ( Amer) 48.0 Est GFR (Non-Af Amer) 41.4 BUN/Creatinine Ratio 10.9 (10-20) Glucose 208 H (70-99) mg/dl POC Glucose (70-99) mg/dl POC Glucose (other) (70-99) mg/dl Estimat Average Glucose mg/dl Hemoglobin A1c (4.5-5.6) % Lactate 2.8 H* (0.4-2.0) mmol/L Calcium 7.8 L (8.5-10.1) mg/dl POC Ioniz Calcium Magda (1.12-1.32) mmol/l Phosphorus (2.5-4.9) mg/dl Magnesium 1.6 L (1.8-2.4) mg/dl Total Bilirubin 0.8 (0.2-1) mg/dl Direct Bilirubin 0.2 (0-0.2) mg/dl AST 37 (15-37) U/L ALT 25 (12-78) U/L Alkaline Phosphatase 312 H (45-117) U/L Troponin I 0.072 H* (0-0.045) ng/ml Total Protein 7.7 (6.4-8.2) gm/dl Albumin 2.8 L (3.4-5.0) gm/dl Lipase 187 (73-393) U/L Urine Color Urine Appearance (Clear) Urine pH (4.5-7.5) Ur Specific [place] (1.000-1.030) Urine Protein (Negative) Urine Glucose (UA) (Negative) Urine Ketones (Negative) Urine Blood (Negative) Urine Nitrite (Negative) Urine Bilirubin (Negative) Urine Urobilinogen (Negative) Ur Leukocyte Esterase (Negative) COVID-19 Eval Order SARS-CoV-2 (PCR) (Negative) Hepatitis C Ab Screen Influenza Type A (PCR) (Neg) Influenza Type B (PCR) (Neg) RSV (RT-PCR) (Neg) Blood Type Antibody Screen Antibody Identification Antibody ID Comment Crossmatch 12/18/20 Range/Units 16:23 WBC 3.07 L (4.8-10.8) K/uL RBC 2.13 L (4.2-5.4) M/uL Hgb 6.4 L* (12.0-16.0) g/dL POC Hgb (12.0-16.0) g/dl Hct 19.1 L* (37-47) % POC Hct (37-47) % MCV 89.7 (80-100) fL MCH 30.0 (25-34) pg MCHC 33.5 (32-36) g/dL RDW Std Deviation 65.6 H (36.4-46.3) fL RDW Coeff of Veda 19.9 H (11.5-14.5) % Plt Count 29 L* (130-400) K/uL Immature Gran % (Auto) 0.7 % Neut % (Auto) 60.6 % Lymph % (Auto) 21.2 % [place] % (Auto) 13.0 % Eos % (Auto) 4.2 % Baso % (Auto) 0.3 % Neut # (Auto) 1.86 (1.4-6.5) K/uL Lymph # (Auto) 0.65 L (1.2-3.4) K/uL [place] # (Auto) 0.40 (0.11-0.59) K/uL Eos # (Auto) 0.13 (0-0.5) K/uL Baso # (Auto) 0.01 (0-0.2) K/uL Immature Gran # (Auto) 0.02 (0.00-0.02) K/uL Toxic Granulation 1+ Dohle Bodies 1+ Platelet Estimate SIGNIFIC DECREASED (Normal) Giant Platelets Anisocytosis Present PT (9.0-12.0) Seconds INR (0.9-1.1) APTT (21.0-31.0) Seconds PTT Ratio POC Sodium (135-144) mmol/L Sodium (136-145) mmol/L POC Potassium (3.3-5.0) mmol/L Potassium (3.5-5.1) mmol/L POC Chloride (101-112) mmol/L Chloride (98-107) mmol/L Carbon Dioxide (21-32) mmol/L POC Total CO2 (24-31) mmol/L Anion Gap (3-11) POC Anion Gap (16-25) mmol/L POC BUN (7-18) mg/dl BUN (7-18) mg/dl Creatinine (0.6-1.2) mg/dl POC Creatinine (0.6-1.3) mg/dl Est Cr Clr Drug Dosing ml/min Est GFR ( Amer) Est GFR (Non-Af Amer) BUN/Creatinine Ratio (10-20) Glucose (70-99) mg/dl POC Glucose (70-99) mg/dl POC Glucose (other) (70-99) mg/dl Estimat Average Glucose mg/dl Hemoglobin A1c (4.5-5.6) % Lactate (0.4-2.0) mmol/L Calcium (8.5-10.1) mg/dl POC Ioniz Calcium Magda (1.12-1.32) mmol/l Phosphorus (2.5-4.9) mg/dl Magnesium (1.8-2.4) mg/dl Total Bilirubin (0.2-1) mg/dl Direct Bilirubin (0-0.2) mg/dl AST (15-37) U/L ALT (12-78) U/L Alkaline Phosphatase (45-117) U/L Troponin I (0-0.045) ng/ml Total Protein (6.4-8.2) gm/dl Albumin (3.4-5.0) gm/dl Lipase (73-393) U/L Urine Color Urine Appearance (Clear) Urine pH (4.5-7.5) Ur Specific [place] (1.000-1.030) Urine Protein (Negative) Urine Glucose (UA) (Negative) Urine Ketones (Negative) Urine Blood (Negative) Urine Nitrite (Negative) Urine Bilirubin (Negative) Urine Urobilinogen (Negative) Ur Leukocyte Esterase (Negative) COVID-19 Eval Order SARS-CoV-2 (PCR) (Negative) Hepatitis C Ab Screen Influenza Type A (PCR) (Neg) Influenza Type B (PCR) (Neg) RSV (RT-PCR) (Neg) Blood Type Antibody Screen Antibody Identification Antibody ID Comment Crossmatch Medications Administered Current Inpatient Medications Acetaminophen (Acetaminophen 325 Mg Tab) 650 mg PO Q4H PRN PRN Reason: Pain or Fever Stop: 01/17/21 22:15 Dextrose (Dextrose 50% 50 Ml Syringe) 25 - 50 ml IV UD PRN; Protocol PRN Reason: Hypoglycemia Protocol Stop: 01/17/21 22:15 Gabapentin (Gabapentin 300 Mg Cap) 300 mg PO HS JEFF Stop: 01/17/21 22:15 Last Admin: 12/18/20 23:18 Dose: 300 mg Documented by: Glucagon (Glucagon For Inj 1 Mg Vial) 1 mg SQ UD PRN; Protocol PRN Reason: Hypoglycemia Protocol Stop: 01/17/21 22:15 Glucose (Glucose 10 Tabs/Tube) 4 - 8 tabs PO UD PRN; Protocol PRN Reason: Hypoglycemia Protocol Stop: 01/17/21 22:15 Glucose (Glucose 40% Gel 15 Gm Tube) 15 - 30 gm PO UD PRN; Protocol PRN Reason: Hypoglycemia Protocol Stop: 01/17/21 22:15 Heparin Sodium (Porcine) (Heparin 100 Unit/Ml 5ml Flush) 5 ml FLUSH PRN PRN PRN Reason: Flush Stop: 01/18/21 00:02 Pantoprazole Sodium 40 mg/ (Dextrose) 100 mls @ 20 mls/hr IV Q5H JEFF Stop: 01/17/21 18:41 Last Admin: 12/19/20 04:38 Dose: 8 mg/hr, 20 mls/hr Documented by: Potassium Phosphate 21 mmol/ (Sodium Chloride) 507 mls @ 88 mls/hr IV ONE ONE Stop: 12/19/20 13:45 Immune Globulin (Flebogamma 10%) 100 mls @ 0 mls/hr IV TODAY@0930 [facility]; Protocol Stop: 12/19/20 18:00 Immune Globulin (Flebogamma 10%) 200 mls @ 0 mls/hr IV TODAY@1030,1130,1230 [facility]; Protocol Stop: 12/19/20 12:31 Insulin Aspart (Insulin Aspart 100 Units/Ml 3 Ml Pen) 0 units SC ACHS [facility] Stop: 01/17/21 22:15 Last Admin: 12/19/20 09:06 Dose: 2 units Documented by: Latanoprost (Latanoprost 0.005% Op Soln 2.5 Ml Btl) 1 drops OPB HS [facility] Stop: 01/17/21 22:15 Last Admin: 12/18/20 23:19 Dose: 1 drops Documented by: Miscellaneous (Alphagan~Order Awaiting Action) 1 ea N/A QS [facility] Stop: 01/18/21 00:00 Last Admin: 12/19/20 08:07 Dose: Not Given Documented by: Miscellaneous (Carbohydrates For Hypoglycemia ) 15 - 30 gm PO UD PRN PRN Reason: Hypoglycemia Protocol Stop: 01/17/21 22:15 Multivitamins (Multivitamin Tab) 1 tab PO QAM [facility] Stop: 01/18/21 08:59 Last Admin: 12/19/20 08:06 Dose: 1 tab Documented by: Ondansetron HCl (Ondansetron 4 Mg Od Tab) 8 mg PO Q8H PRN PRN Reason: Nausea Stop: 01/17/21 22:35 Prochlorperazine (Prochlorperazine Maleate 10 Mg Tab) 10 mg PO Q6 PRN PRN Reason: Nausea Stop: 01/17/21 22:15 Resident Activity Tracking Resident Involvement: Resident Care Provided Care Provided: Adult Hospital Medicine (1) GIB (gastrointestinal bleeding) GI bleed type/associated pathology: unspecified gastrointestinal hemorrhage type Qualified Code(s): K92.2 - Gastrointestinal hemorrhage, unspecified
[2020-12-19] MEDS ORDERED: IMMUNE GLOBULIN(HUMAN) 10% 100 ML IV SCH (09:30)
[2020-12-19] MEDS ORDERED: diphenhydrAMINE Capsule 25 MG CAP PO ONE (09:42)
--- NOTE | 2020-12-19 10:38 | Consultation Report ---
DATE OF CONSULTATION: 12/18/2020 REASON FOR CONSULTATION: Syncopal episode. 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 HISTORY OF PRESENT ILLNESS: The patient is pleasant 60-year-old -Turkmen female well known to [facility] under my care for metastatic adenocarcinoma of the appendix, was admitted to [facility] on December 18 with a syncopal episode of unclear etiology. The patient states that she was at work, had actually walked to work without any difficulty. Apparently, she felt lightheaded and a coworker noticed that she had fallen gracefully to the floor, not really striking any vital areas to any great extent. She did notice her eyes rolling back in her head, but denied any evidence of seizure. The patient was brought to [facility] where she underwent full evaluation including CT scan of the head which revealed no acute intracranial anomalies. The patient was started on modified FOLFOX chemotherapy, had seen our physician fish net stringer back on 11/27/2020 and received chemotherapy on 12/11/2020. The patient also suffers from ITP. She has responded nicely to IVIG in the past. Obviously with her low platelet count, which may be multifactorial and her bleeding is certainly always a concern. The patient had presented with a hemoglobin of 6.4 and a platelet count of 29,000. Today, her hemoglobin is 7 grams per deciliter and platelet count of 20,000. 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 Has had multiple surgical procedures including colostomy and has been heavily pretreated. Thus, her course has been somewhat complicated as of late and intermixed with ITP, has compounded her clinical issues moving forward. 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 PAST SURGICAL HISTORY: MediPort, laparotomy, USO plus salpingectomy, laparoscopic cholecystectomy, partial colectomy due to an appendiceal carcinoma. MEDICATIONS: Compazine 10 mg p.o. q. 6 hours p.r.n., Zofran 8 mg p.o. q. 8 hours p.r.n., gabapentin 300 mg p.o. at bedtime, multivitamin 1 tablet p.o. daily, Xalatan 1 drop OPB at bedtime, vitamin D3 2000 units p.o. daily, Alphagan P drops 1 drop OPB t.i.d. ALLERGIES: CANTALOUPE, LASIX, TOMATO, PENICILLINS, NAPROSYN, CLARITHROMYCIN, CITRUS AND DERIVATIVES, PINEAPPLE. SOCIAL HISTORY: The patient is . She lives independently with her son, negative for cigarettes, alcohol or illicit substances. FAMILY HISTORY: Positive for diabetes mellitus, heart disease, hypertension and strokes. REVIEW OF SYSTEMS: CONSTITUTIONAL: The patient has been anorexic as of late, lost approximately 7 pounds over the past couple of weeks, positive for asthenia, generalized weakness. No fevers, chills or sweats. SKIN: No rashes or lesions. No history of dermatoses. HEENT: Episodic lightheadedness and syncope. No current headaches or dizziness. No acute visual or hearing deficits. No sinus symptoms, sore throat or dysphagia. LYMPH: No history of lymphadenopathy. CARDIAC: Negative for coronary artery disease, no angina or palpitations. GENITOURINARY: Negative for hematuria, dysuria or urinary incontinence. PSYCHIATRIC: Negative for anxiety, depression or psychoses. MUSCULOSKELETAL: Negative for arthralgias or focal muscle weakness. ENDOCRINE: Borderline diabetes mellitus. NEUROLOGIC: Positive for syncope. No history of seizure disorder. No history of migraine headaches. HEMATOLOGIC: Positive for ITP. Positive for chronic anemia. PHYSICAL EXAMINATION: GENERAL: Very pleasant 60-year-old -Turkmen female. Awake, alert and appropriate, in no acute distress. VITAL SIGNS: Her skin is warm, dry, noncyanotic without petechia, rash or ecchymosis. HEENT: Head is atraumatic, normocephalic. Eyes: PERRLA, EOMI. Sclerae are nonicteric. Nares are patent without rhinorrhea or discharge. Throat is clear. Tongue midline. Mucous membranes are moist. NECK: Supple without JVD or thyromegaly. LYMPHATICS: No cervical, supraclavicular, axillary or inguinal palpable nodes. HEART: Regular rate and rhythm. No clicks, rubs, murmurs or gallops. LUNGS: Clear to auscultation bilaterally. ABDOMEN: Soft, nontender, nondistended. Functional ileostomy noted. EXTREMITIES: She does have one particular ecchymosis in the inner part of her left thigh. Otherwise, no clubbing, cyanosis or edema. MUSCULOSKELETAL: Strength and pulses are equal in all 4 quadrants. NEUROLOGICALLY: She is awake, alert and oriented x3. Cranial nerves are grossly intact. LABORATORY DATA: WBC count 2860, hemoglobin 7.0, hematocrit 21.4, platelet count 20,000. Sodium 141, potassium 3.5, chloride 112, carbon dioxide 25, creatinine 1.25, BUN 12. IMPRESSION: 1. Syncope, etiology unclear. 2. Pseudomyxoma peritonei by history, currently on modified FOLFOX, last received 12/11/2020. 3. Immune thrombocytopenic purpura. 4. Asthenia/generalized weakness. 5. Anorexia/weight loss. PLAN: It is my pleasure to visit with the patient, who I have known for a long time as a 60-year-old -Turkmen female, heavily pretreated for pseudomyxoma peritonei. The patient has had multiple surgeries, multiple chemotherapeutic regimens over the past several years. For the most part, her disease has been relatively indolent. Over the past year or so, she subsequently developed ITP, which is responsive to IVIG. Clearly, her platelet count is in decline and with her precipitous drop in hemoglobin, would proceed with IVIG 1 gram per kilogram both today and tomorrow. Additionally, we will arrange for a transfusion of packed RBCs 1-2 units, do not have to be radiated, should be CMV safe. As for continuing her chemotherapy that will be based upon her recovery moving forward. The patient will need to be seen in the office shortly after discharge and reevaluate for fitness to proceed with her current therapeutic course. Thank you very much for allowing me to participate in her care. I will continue to follow her periodically during her hospitalization. If you have any questions or concerns, please feel free to contact me at any time.
[2020-12-19] MEDS: IMMUNE GLOBULIN(HUMAN) 10% 200 ML IV SCH ×3 (12:00→14:56)
--- NOTE | 2020-12-19 16:04 | Electrocardiogram Report ---
Test Reason : Blood Pressure : / mmHG Vent. Rate : 085 BPM Atrial Rate : 085 BPM P-R Int : 156 ms QRS Dur : 070 ms QT Int : 386 ms P-R-T Axes : 032 -06 046 degrees QTc Int : 459 ms Normal sinus rhythm Septal infarct (cited on or before 18-DEC-2020) Abnormal ECG When compared with ECG of 29-MAY-2020 11:39, No significant change was found Confirmed by Brad Lee ([id number]) on 12/19/2020 4:04:02 PM Referred By: Douglas Licona Confirmed By:Brad Lee
--- NOTE | 2020-12-19 16:16 | Billing Data ---
Date of Service December 19, 2020 Coding Level of Care Code 86965 Subseq Hosp Care Lvl 3
[2020-12-19] MEDS: GABAPENTIN 300 MG CAP PO SCH (20:13)
[2020-12-19] MEDS: LATANOPROST 0.005% OP SOLN 2.5 ML BTL OPB SCH (20:14)
--- NOTE | 2020-12-20 01:24 | Billing Data ---
Date of Service December 20, 2020 Coding Level of Care Code 60084 Initial Inpt Care Lvl 3
[2020-12-20] MEDS: PANTOprazole 40 MG in DEXTROSE 5% 100 ML IV SCH ×4 (01:29→17:02)
[2020-12-20 09:08] LABS: Mean Corpuscular Hgb Conc 33.6 g/dL (32-36)
[2020-12-20] MEDS: MULTIVITAMIN TAB PO SCH (09:09)
[2020-12-20] MEDS: ALPHAGAN~ORDER AWAITING ACTION SCH ×2 (09:10→17:02)
[2020-12-20] MEDS: INSULIN ASPART 100 UNITS/ML 3 ML PEN SC SCH ×3 (09:11→16:59)
[2020-12-20 09:16] LABS: BUN Creatinine Ratio 6.5 (10-20); Calcium 8.1 mg/dl (8.5-10.1); Creatinine Clr Calc Pharmacy 35.3 ml/min; Est GFR (African American) 43.7; Est GFR (Non-African American) 37.7; Magnesium 1.7 mg/dl (1.8-2.4); Potassium 3.7 mmol/L (3.5-5.1)
[2020-12-20 09:17] LABS: Phosphorus 1.9 mg/dl (2.5-4.9)
[2020-12-20 09:23] LABS: Hematocrit (blood only) 32.1 % (37-47); Hemoglobin 10.8 g/dL (12.0-16.0); Mean Corpuscular Hemoglobin 29.1 pg (25-34); Mean Corpuscular Volume 86.5 fL (80-100); Platelet Count 21 K/uL (130-400); RDW Coefficient of Variation 20.2 % (11.5-14.5); RDW Standard Deviation 62.8 fL (36.4-46.3); Red Blood Count 3.71 M/uL (4.2-5.4); White Blood Count 4.16 K/uL (4.8-10.8)
[2020-12-20 09:24] LABS: Anisocytosis Present; Basophils # (auto) 0.03 K/uL (0-0.2); Basophils % (auto) 0.7 %; Dohle Bodies 1+; Eosinophils # (auto) 0.16 K/uL (0-0.5); Eosinophils % (auto) 3.8 %; Immature Granulocytes # (auto) 0.01 K/uL (0.00-0.02); Immature Granulocytes % (auto) 0.2 %; Lymphocytes # (auto) 1.19 K/uL (1.2-3.4); Lymphocytes % (auto) 28.6 %; Monocytes # (auto) 0.97 K/uL (0.11-0.59); Monocytes % (auto) 23.3 %; Neutrophils % (auto) 43.4 %; Platelet Estimate SIGNIFIC DECREASED (Normal); Toxic Granulation 1+
[2020-12-20] MEDS ORDERED: diphenhydrAMINE Capsule 25 MG CAP PO ONE (11:19)
[2020-12-20] MEDS ORDERED: IMMUNE GLOBULIN(HUMAN) 10% 100 ML IV SCH (11:30)
--- NOTE | 2020-12-20 13:50 | Discharge Summary ---
Date of Service December 20, 2020 Admission HPI Per Admitting Provider Brooke Vasquez is here for a fall. She was feeling normal prior to the fall and walked 30 minutes to work without any difficulty. She felt lightheaded prior to the fall, and a coworker noted that her eyes rolled back in her head and she fell hitting a counter with the front of her head and then fell to the ground. She doesn't know how long she was down but a coworker called her name 7 times prior to her waking up. Brooke has a history of Mucinous adenocarcinoma of the appendix s/p colectomy and she has been on a chronic regimen of chemotherapeutics including 5FU, Oxyplatnin, and Avastin. She has recently developed hand swelling and paresthesias, and recently started Gabapentin. She has a history of chronic ITP with platelet counts as low as single digits previously. She had IVIG last 2 weeks ago. Her platelets were 120 2 weeks prior, 89 1 week ago and 102 on . Principal Diagnosis ITP, symptomatic anemia Discharge Exam Constitutional WD/WN, vitals as above Eyes PERRL, conjunctivae normal, anicteric sclerae Respiratory normal respiratory effort, lungs clear to auscultation Auscultation: no crackles, no rales, no rhonchi and no wheezes Cardiovascular Rate/Rhythm: regular rate and regular rhythm Heart Sounds: no gallop, no murmur and no cardiac rub Vessels: normal peripheral pulses; no JVD Extremities: no edema Gastrointestinal (Abdomen) Percussion/Palpation: abdomen soft; abdomen nontender and no guarding Musculoskeletal no cyanosis or clubbing, extremities motor strength 5/5 Skin no rashes, warm and dry Neurologic PERRL, EOMI, accommodation nl, no face palsy, no dysarthria CN's II-XI intact bilaterally and moves all extremities Psychiatric Orientation: alert and oriented x 3 Discharge Data Allergies Allergy/AdvReac Type Severity Reaction Status Date / Time pineapple Allergy Severe anaphylaxis Verified 12/18/20 17:29 Rhodes And Derivatives Allergy Intermediate hives Verified 12/18/20 17:29 clarithromycin Allergy Intermediate hives Verified 12/18/20 17:29 naproxen Allergy Intermediate hives Verified 12/18/20 17:29 Penicillins Allergy Intermediate hives Verified 12/18/20 17:29 tomato Allergy Intermediate hives, Verified 12/18/20 17:29 throat tightness latex Allergy Mild rash Verified 12/18/20 17:29 Cantaloupe Allergy Intermediate hives, Uncoded 12/18/20 17:29 throat tightness Consultations 12/18/20 18:22 ED Decision to Admit Stat 12/18/20 22:16 Consult Hematology Routine Ordered Studies 12/18/20 15:45 CT head/brain wo con Stat 12/18/20 17:20 CT angio chest PE protocol Stat Hospital Course (1) GIB (gastrointestinal bleeding): 60 yo F w/ pMHx. 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 Thrombocytopenia w/ prior history of chronic ITP - ptl count downtrending over the last several weeks, 29 on admission with downtrend this AM - last IVIG 2 weeks prior to admission - completed two rounds of IVIG - to have follow-up labs next week Normocytic anemia in the setting of chemotherapy - FOB+ w/o gross blood in ileostomy - hgb 6.4 on admission, recheck in AM - transfused 2 units pRBC's - continue to monitor for signs of benito blood loss, but believe this anemia is multifactorial at this time and not acute Type II Diabetes: - A1c 6.4 - diet controlled at this time (2) Elevated troponin: (3) Chronic idiopathic thrombocytopenic purpura: (4) Diabetes: (5) Ileostomy care: (6) Dehydration: (7) Acute renal failure: (8) Acute hypokalemia: (9) Hypomagnesemia: Total Time Total Time Spent Total Time Spent (In Minutes): <30 Discharge Plan Discharge Items Patient Disposition: Home - Self-Care Reason For Visit: SYNCOPE, ANEMIA Discharge Diagnosis: symptomatic anemia Activity: Per Instructions section Non-emergency contact: Primary Care Provider and Oncologist Call non-emergency contact if: you have any medication questions, your symptoms worsen and you have a fever Follow-up/Referrals: Robert Hernández [Primary Care Provider] - Diet: Carb Consistent or DM2 Addtl Attending Provider Instructions: You were seen and admitted for concerns following a fall; during this time you had lab work that demonstrated your platelet counts had decreased despite the medications you have been receiving. For this you received two transfusions of immunoglobulins in order to slow your immune systems destruction of the platelets. Additionally, you received two blood transfusions that likely were n eeded as a result of your low platelets and a slow/gradual blood loss and ultimately your fall. Pending Studies at Discharge: No Stand-Alone Forms: My [facility], Smoking Cessation Medications and DC Order Prescriptions: Continued multivitamin Tablet 1 tab PO QAM RF: 0 latanoprost [Xalatan] 0.005 % Drops 1 drp OPB HS RF: 0 Alphagan P 0.1 % Drops 1 drp OPB TID RF: 0 cholecalciferol (vitamin D3) [Vitamin D3] 2,000 unit Capsule 2,000 unit PO QAM RF: 0 gabapentin 300 mg capsule 300 mg PO HS RF: 0 ondansetron HCl [Zofran] 8 mg Tablet 8 mg PO Q8H PRN (Reason: Nausea) RF: 0 prochlorperazine maleate 10 mg tablet 10 mg PO Q6 PRN (Reason: Nausea) RF: 0 Discharge Orders: Discharge Order (Routine); Ordered 12/20/20 Ordered By: Esdras Fitzgerald/Other Patient Handouts: Managing Type 2 Diabetes, Managing Diabetes: The A1C Test Admission Data Admit Date/Time: 12/18/20 19:46 Attending Provider: Alfonso Encarnacion Admit Provider: Daniel Archuleta Primary Care Provider: Robert Hernández Other Providers: Rashad Gates ; Douglas Licona V. ; Rico Nava ; [facility] Supervising Physician Co-Signing Physician Notes I personally examined the patient and verified all amin points of history and exam, discussed case, and agree with decision making with Dr Ozuna. Feeling good, getting IVIG whenever I see her, feels up to going home. Discussed with oncology who wanted her to have today's dosing of IVIG, and then has her set up for lab work on Thursday. Vitals noted, in general she is awake alert pleasant no distress. HEENT normocephalic atraumatic mucous membranes moist. Breathing unlabored no accessory muscle use good effort. Skin shows no rashes no pallor or icterus. Neuro shows no focal deficits. Syncopelikely due to anemia/volume depletion/overall weakness from her chemotherapy regimenfortunately no ominous causes. Questionable whether or not she hit her head based on historycertainly no evidence of head trauma or intracranial bleed right now, given her thrombocytopenia, yesterday I did outline loosely what a late subdural/venous type bleed could look like in case she were to start to develop subtle symptoms a month from now, however I did also note this would be fairly unlikely. And she appears neurologically intact Antineoplastic chemotherapy induced pancytopenia/thrombocytopenia likely disproportionately worse due to ITPtransfused 2 units for anemia, no signs of infection with leukopenia, IVIG for ITP portion of thrombocytopenia. Dispositionstable for home after IVIG today, outpatient follow-up with lab work again on Thursday. Resident Activity Tracking Resident Involvement: Resident Care Provided Care Provided: Adult Hospital Medicine
[2020-12-20] MEDS: IMMUNE GLOBULIN(HUMAN) 10% 200 ML IV SCH ×3 (14:11→16:45)
--- NOTE | 2020-12-20 16:33 | Billing Data ---
Date of Service December 20, 2020 Coding Level of Care Code D/C Day Management <30 mins
== END 2020-12-20 19:42 | disposition home or self-care (01) | DRG 809 ==
LOC: ED 15:14 → 2N 19:46 → SUATTDRO 19:46 → 2N 22:02 → 2W 12-20 01:45

== ENCOUNTER 2023-05-29 19:50 | Inpatient (IN) ==
[2023-05-29] MEDS ORDERED: SODIUM CHLORIDE 0.9% 1,000 ML IV SCH (20:15)
[2023-05-29 20:42] LABS: iSTAT Creatinine 3.8 mg/dl (0.6-1.3); iSTAT Hemoglobin 8.2 g/dl (12.0-16.0); iSTAT Ionized Calcium 0.96 mmol/l (1.12-1.32); iSTAT Potassium 2.8 mmol/L (3.3-5.0)
[2023-05-29 20:42] LABS: Base Excess VBG 12.7 mEq/L; HCO3 VBG 38 mmol/L; Oxygen Saturation VBG 71.9 %; PCO2 VBG 47 mmHg (38-50); PO2 VBG 42 mmHg; pH VBG 7.51 (7.36-7.41)
[2023-05-29 20:49] LABS: Hematocrit (blood only) 23.9 % (37.0-47.0); Hemoglobin 7.8 g/dl (12.0-16.0); Mean Corpuscular Hemoglobin 28.2 pg (25.0-34.0); Mean Corpuscular Hgb Conc 32.6 g/dL (32.0-36.0); Mean Corpuscular Volume 86.3 fL (80.0-100.0); Platelet Count 157 K/uL (130-400); RDW Coefficient of Variation 16.7 % (11.5-14.5); RDW Standard Deviation 52.3 fL (36.4-46.3); Red Blood Count 2.77 M/uL (4.20-5.40)
[2023-05-29 21:08] LABS: Albumin Level 2.9 gm/dl (3.4-5.0); BUN Creatinine Ratio 18.6 (10-20); Bilirubin Direct 1.9 mg/dl (0-0.2); Bilirubin,Total 3.4 mg/dl (0.2-1.0); Calcium 8.3 mg/dl (8.6-10.3); Creatinine Clr Calc Pharmacy 11.5 ml/min; Est GFR (African American) 15.5 ml/min; Est GFR (Non-African American) 13.4 ml/min; Magnesium 1.8 mg/dl (1.7-2.4); Potassium 2.9 mmol/L (3.5-5.1); Total Protein 6.7 gm/dl (6.0-8.3)
[2023-05-29 21:14] LABS: Troponin I High Sensitivity 17.2 pg/ml (0-14)
--- NOTE | 2023-05-29 21:23 | CT Scan Report ---
CT SCAN OF THE BRAIN WITHOUT IV CONTRAST CLINICAL HISTORY: Syncope. COMPARISON STUDY: CT of the brain dated 12/18/2020. TECHNIQUE: Unenhanced axial CT scan of the brain is performed from the vertex to the skull base. A d ose lowering technique was utilized adhering to the principles of ALARA. FINDINGS: Brain parenchyma: The brain parenchyma is normal in appearance. There is no hemorrhage, mass effect, or evidence of acute territorial ischemia by CT criteria. Mclean-white matter differentiation is preser velvet. No extra-axial fluid collection is seen. Ventricles, sulci, cisterns: Normal in configuration. Intracranial vasculature: There is atherosclerotic calcification of the cavernous carotid and vertebr al arteries. Calvarium: Unremarkable. Sinuses and mastoids: There is near complete opacification of the right sphenoid sinus. Thickening an d sclerosis of the sinus wall suggests chronicity. The remaining visualized paranasal sinuses are moiz ar. The mastoid air cells are well pneumatized. Orbits: The bony orbits are grossly intact. IMPRESSION: There is no hemorrhage, mass effect, or evidence of acute territorial ischemia by CT naresh carroll. ACT 112: Negative or not required by law. Electronically signed by: Jerald Sanders M.D. 05/29/2023 9:22 PM
[2023-05-29] MEDS ORDERED: SODIUM CHLORIDE 0.9% 500 ML IV ONE (21:25)
[2023-05-29 21:27] LABS: INR 1.5 (0.9-1.1); Partial Thromboplastin Ratio 1.3; Partial Thromboplastin Time 35.5 Seconds (21.0-31.0); Prothrombin Time 15.7 Seconds (9.0-12.0)
--- NOTE | 2023-05-29 21:27 | CT Scan Report ---
Exam(s): CT ABDOMEN + PELVIS Without Contrast EXAM: CT Abdomen and Pelvis Without Intravenous Contrast CLINICAL HISTORY: Reason for exam: syncope dysuria recent uti colon cancer. TECHNIQUE: Axial computed tomography images of the abdomen and pelvis without intravenous contrast. CTDI is 9.82 mGy and DLP is 415.4 mGy-cm. Automated exposure control was utilized for the study. A dose lowering technique was utilized adhering to the principles of ALARA. COMPARISON: No relevant prior studies available. FINDINGS: Lung bases: Unremarkable. No mass. No consolidation. ABDOMEN: Liver: See below. Gallbladder and bile ducts: Unremarkable. No calcified stones. No ductal dilation. Pancreas: Unremarkable. No ductal dilation. Spleen: Multiple calcified splenic and hepatic lesions, measuring up to 4.9 x 4.1 cm in the RIGHT hepatic lobe. Metastatic disease cannot be excluded. Evaluation is limited due to lack of contrast. Adrenals: Unremarkable. No mass. Kidneys and ureters: Unremarkable. No hydronephrosis or nephrolithiasis. Stomach and bowel: Colectomy. RIGHT lower quadrant ostomy. No parastomal hernia. Evaluation of the bowel is limited due to lack of oral contrast. No obstruction. PELVIS: Appendix: See above. Bladder: Mild thickening of the urinary bladder which contains air, correlate for recent Kaminski catheter. UTI not excluded, urinalysis recommended. No stones. Reproductive: Unremarkable as visualized. ABDOMEN and PELVIS: Intraperitoneal space: Unremarkable. No free air. No significant fluid collection. Bones/joints: Degenerative changes of the spine. No acute fracture. No dislocation. Soft tissues: See above. Vasculature: Atherosclerotic changes of the aorta. No abdominal aortic aneurysm. Lymph nodes: Unremarkable. No enlarged lymph nodes. IMPRESSION: 1. Multiple calcified splenic and hepatic lesions, measuring up to 4.9 x 4.1 cm in the RIGHT hepatic lobe. Metastatic disease cannot be excluded. Evaluation is limited due to lack of contrast. 2. Mild thickening of the urinary bladder which contains air, correlate for recent Kaminski catheter. UTI not excluded, urinalysis recommended. 3. Colectomy. RIGHT lower quadrant ostomy. No parastomal hernia. 4. Evaluation of the bowel is limited due to lack of oral contrast. Electronically signed by: Javier An MD 05/29/23 21:26 PM
[2023-05-29] MEDS ORDERED: POTASSIUM CHLORIDE 10 MEQ TABCR PO STA (21:29)
[2023-05-29] MEDS ORDERED: cefTRIAXone SODIUM 1,000 MG in DEXTROSE 5% 50 ML IV STA (21:29)
--- NOTE | 2023-05-29 21:32 | XRay Report ---
SINGLE VIEW CHEST CLINICAL HISTORY: Sepsis. FINDINGS: 2 AP, portable, upright chest radiographs are obtained to study dated 02/17/2023. A right in ternal jugular central venous infusion port is unchanged in position. The heart is enlarged noting at herosclerotic calcification of the thoracic area the pulmonary vasculature is noncongested. Chronic i nterstitial thickening is similar to previous. The lungs and pleural spaces are clear. No pneumothora x is seen. The skeletal structures are osteopenic. The skeletal structures are osteopenic. The bony t horax is grossly intact. Surgical clips are seen in the upper abdomen. IMPRESSION: No active disease in the chest. ACT 112: Negative or not required by law. Electronically signed by: Jerald Sanders M.D. 05/29/2023 9:31 PM
[2023-05-29 21:52] LABS: Basophils # (auto) 0.02 K/uL (0.00-0.20); Basophils % (auto) 0.2 %; Eosinophils # (auto) 0.05 K/uL (0.00-0.50); Eosinophils % (auto) 0.6 %; Immature Granulocytes # (auto) 0.06 K/uL (0.01-0.20); Immature Granulocytes % (auto) 0.7 %; Lymphocytes # (auto) 1.17 K/uL (1.20-3.40); Monocytes # (auto) 0.83 K/uL (0.11-0.59); Monocytes % (auto) 9.2 %; Neutrophils # (auto) 6.87 K/uL (1.40-6.50); Neutrophils % (auto) 76.3 %; Polychromasia 1+
[2023-05-29] MEDS ORDERED: PIPERACILLIN/TAZOBACTAM 4.5 GM in DEXTROSE 5% MINI-B 100 ML IV ONE (22:12)
[2023-05-29 22:26] LABS: Appearance Urine Turbid (Clear); Blood Urine 3+ (Negative); Color Urine Dark Yellow; Epithelial Cell Urine Auto >30 /lpf (0-5); Glucose Urine UA Negative (Negative); Ketones Urine Negative (Negative); Leukocyte Esterase Urine 3+ (Negative); Nitrite Urine Negative (Negative); Protein Urine 2+ (Negative); Specific Gravity Urine 1.012 (1.000-1.030); Urobilinogen Urine Negative (Negative); WBC Urine Automated >30 /hpf (0-5)
[2023-05-29 22:30] LABS: Bilirubin Urine 1+ (Negative)
--- NOTE | 2023-05-29 22:30 | Emergency Department Note ---
History of Present Illness General Chief complaint: Dizziness Stated complaint: DIZZY, PASSING OUT Time Seen by Provider: 05/29/23 20:03 History of Present Illness Provider complaint: Near syncope Onset (ago): hour(s) 8 62-year-old female presents emergency department for near syncope. 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 She reports she had headache. Patient reports no falls. No chest pain or difficulty breathing. No abdominal pain. Patient does report a recent UTI and having hematuria. No fevers. Patient is receiving chemotherapy for colon cancer. Home Medications Medication Instructions Recorded Confirmed Type brimonidine 0.1 % eye drops 1 drp OPB TID 05/12/19 05/29/23 History (Alphagan P) cholecalciferol (vitamin D3) 50 2,000 unit PO QAM 05/12/19 05/29/23 History mcg (2,000 unit) capsule (Vitamin D3) latanoprost 0.005 % eye drops 1 drp OPB HS 05/12/19 05/29/23 History (Xalatan) multivitamin 1 tab PO QAM 05/12/19 05/29/23 History ondansetron HCl 8 mg tablet 8 mg PO Q8H PRN Nausea 12/18/20 05/29/23 History prochlorperazine maleate 10 mg 10 mg PO Q6 PRN Nausea 12/18/20 05/29/23 History tablet allopurinol 100 mg tablet 200 mg PO DAILY 02/17/23 05/29/23 History potassium chloride 10 mEq 10 meq PO DAILY 02/17/23 05/29/23 History capsule,extended release Allergies Allergy/AdvReac Type Severity Reaction Status Date / Time pineapple Allergy Severe anaphylaxis Verified 05/29/23 21:42 cantaloupe Allergy Intermediate Hives Verified 05/29/23 21:42 [place] [employer] Allergy Intermediate hives Verified 05/29/23 21:42 clarithromycin Allergy Intermediate hives Verified 05/29/23 21:42 naproxen Allergy Intermediate hives Verified 05/29/23 21:42 Penicillins Allergy Intermediate hives Verified 05/29/23 21:42 tomato Allergy Intermediate hives, Verified 05/29/23 21:42 throat tightness latex Allergy Mild rash Verified 05/29/23 21:42 Past Med/Surg History Medical History Acute hypokalemia Acute kidney injury superimposed on CKD Anemia chronic, baseline hgb 9-11 range per chart review Borderline diabetes diet controlled Chronic ITP (idiopathic thrombocytopenia) platelet WNL on 06/01/20 labs High cholesterol Hyponatremia Mucinous adenocarcinoma of appendix (~03/2013) 2013 Pancreatitis post-op (2014) 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, chemo currently Surgical History Encounter for insertion of venous access port 2012 (subsequent removal) History of laparotomy USO + salipngectomy Hx laparoscopic cholecystectomy 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 Family History Other Diabetes Heart disease Hypertension Stroke Social History Smoking Status: Never smoker Second Hand Exposure: No; Do You Dip or Chew Tobacco: No; Hx Alcohol Use: No Hx Substance Use: No Preferred Language: [place]an Communication Ability: Effective 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 Beliefs That Will Affect Care: None marital status: Current Living Situation: Family Current Living Situation Comment: lives with son Feels Safe at Home: Yes Assistive Devices: None Physical Exam Vital Signs Vital Signs - 24 hr 05/29/23 19:56 05/29/23 20:31 05/29/23 20:31 Temperature 37.5 C Temperature Source Oral Pulse Rate 98 H 85 85 Pulse Rate from SpO2 Sensor 85 Pulse Rhythm Regular Pulse Strength Normal Respiratory Rate 22 12 Respiratory Effort / Characteristics Non-Labored Spontaneous Respiratory Depth Normal Respiratory Pattern Regular Blood Pressure 93/57 L Blood Pressure Mean 69 Blood Pressure Position Sitting Pulse Oximetry 100 100 Oxygen Delivery Method Room Air Sepsis Recent Fever Within 48 Hours No Sepsis New/Unexplained Change in Mental Status N/A Sepsis Action Taken by Nursing No Action Required 05/29/23 20:51 05/29/23 20:57 05/29/23 21:00 Temperature Temperature Source Pulse Rate 86 85 Pulse Rate from SpO2 Sensor Pulse Rhythm Pulse Strength Respiratory Rate 13 22 Respiratory Effort / Characteristics Respiratory Depth Respiratory Pattern Blood Pressure 97/51 L Blood Pressure Mean 70 Blood Pressure Position Pulse Oximetry Oxygen Delivery Method Sepsis Recent Fever Within 48 Hours Sepsis New/Unexplained Change in Mental Status Sepsis Action Taken by Nursing 05/29/23 21:00 05/29/23 21:10 05/29/23 21:20 Temperature Temperature Source Pulse Rate 88 88 89 Pulse Rate from SpO2 Sensor 90 87 Pulse Rhythm Pulse Strength Respiratory Rate 19 21 19 Respiratory Effort / Characteristics Respiratory Depth Respiratory Pattern Blood Pressure Blood Pressure Mean Blood Pressure Position Pulse Oximetry 95 95 Oxygen Delivery Method Sepsis Recent Fever Within 48 Hours Sepsis New/Unexplained Change in Mental Status Sepsis Action Taken by Nursing 05/29/23 21:30 05/29/23 21:30 05/29/23 21:40 Temperature Temperature Source Pulse Rate 86 94 H Pulse Rate from SpO2 Sensor 86 Pulse Rhythm Pulse Strength Respiratory Rate 21 14 Respiratory Effort / Characteristics Respiratory Depth Respiratory Pattern Blood Pressure 102/50 L Blood Pressure Mean 73 Blood Pressure Position Pulse Oximetry 94 Oxygen Delivery Method Sepsis Recent Fever Within 48 Hours Sepsis New/Unexplained Change in Mental Status Sepsis Action Taken by Nursing 05/29/23 21:46 05/29/23 21:46 Temperature Temperature Source Pulse Rate 90 Pulse Rate from SpO2 Sensor 89 Pulse Rhythm Pulse Strength Respiratory Rate 22 Respiratory Effort / Characteristics Respiratory Depth Respiratory Pattern Blood Pressure 108/61 Blood Pressure Mean 73 Blood Pressure Position Pulse Oximetry 100 Oxygen Delivery Method Sepsis Recent Fever Within 48 Hours Sepsis New/Unexplained Change in Mental Status Sepsis Action Taken by Nursing Physical Exam HENT: Exam performed. -Head: Normocephalic and atraumatic. -Right Ear: External ear normal. No mastoid erythema -Left Ear: External ear normal. No mastoid erythema -Mouth/Throat: The oropharynx is clear and moist. No trismus in the jaw. No dental abscesses or uvula swelling. No oropharyngeal exudate or tonsillar abscesses. EYES: Conjunctivae and EOM are normal. Pupils are equal, round, and reactive to light. Right eye exhibits no discharge. Left eye exhibits no discharge. No scl eral icterus. NECK: Normal range of motion. Neck supple. No JVD present. CV: Normal rate, regular rhythm, normal heart sounds and intact distal pulses. There is no peripheral edema. Palpable radial pulses bue. PULM/CHEST: Effort normal and breath sounds normal. No respiratory distress. No stridor. She has no wheezes. She has no rales. -Chest Wall: She exhibits no tenderness. Mediport present ABD: The abdomen is soft and ostomy is present.There is no tenderness. There is no rebound, no guarding MUSC/SKEL: Normal range of motion. There is no peripheral edema, tenderness or deformity. NEURO: She is alert and oriented to person, place, and time. She has normal strength. No cranial nerve deficit or sensory deficit. Coordination and gait normal. GCS eye subscore is 4. GCS verbal subscore is 5. GCS motor subscore is 6. Cerebellar tests wnl. Course Course 2002: The patient was evaluated in room B9. A complete history and physical exam was performed Cardiac monitoring: An order was placed for continuous cardiac monitoring. The monitor shows a rate of 90 with sinus rhythm interpreted by me.. 2129: Vital signs improved with IV fluids. Patient is given a total of 1500 normal saline bolus, approximately 30 cc/kg bolus. Patient's lactic acid is within normal limits. White blood cell count of 9. Hemoglobin 7.8. Coagulation studies within normal limits. Sodium 133. Potassium 2.9. Creatinine 3.49 up from 2.51 approximately 10 days ago. Total bilirubin 3.4. Direct bilirubin 1.9. AST 45. ALT 22. High-sensitivity troponin 17.2. Procalcitonin 3.24. COVID-negative. CT of the head negative. Chest x-ray negative. CT of the abdomen pelvis shows multiple calcified splenic and hepatic lesions. Multiple metastatic lesions were seen in the liver on previous CT scans. There is marked thickening of the urinary bladder. Grossly the patient's urinalysis appears infected very cloudy appearing. Patient be treated empirically with IV antibiotics. Rocephin ordered for the patient after discus sing with pharmacy, patient has a listed allergy to penicillins but has received cephalosporins in the past thus Rocephin was thought to be safe. [facility]. Administered Medications Discontinued Medications Sodium Chloride (Nss) 1,000 mls @ 999 mls/hr IV .Q1H1M JEFF Stop: 05/29/23 21:15 Last Admin: 05/29/23 20:57 Dose: 999 mls/hr Documented By: ACC Sodium Chloride (Nss) 500 mls @ 999 mls/hr IV .Q31M ONE Stop: 05/29/23 21:55 Last Admin: 05/29/23 21:58 Dose: 999 mls/hr Documented By: ACC Medical Decision Making Laboratory Data Attestation: I reviewed the patient's lab results. 05/29/23 20:27 05/29/23 20:27 Lab Results 05/29/23 05/29/23 05/29/23 Range/Units 20:27 20:27 20:27 WBC 9.00 (4.8-10.8) K/ul RBC 2.77 L (4.20-5.40) M/uL Hgb 7.8 L (12.0-16.0) g/dl POC Hgb (12.0-16.0) g/dl Hct 23.9 L (37.0-47.0) % POC Hct (37-47) % MCV 86.3 (80.0-100.0) fL MCH 28.2 (25.0-34.0) pg MCHC 32.6 (32.0-36.0) g/dL RDW Std Deviation 52.3 H (36.4-46.3) fL RDW Coeff of Veda 16.7 H (11.5-14.5) % Plt Count 157 (130-400) K/uL Immature Gran % (Auto) 0.7 % Neut % (Auto) 76.3 % Lymph % (Auto) 13.0 % [place] % (Auto) 9.2 % Eos % (Auto) 0.6 % Baso % (Auto) 0.2 % Neut # (Auto) 6.87 H (1.40-6.50) K/uL Lymph # (Auto) 1.17 L (1.20-3.40) K/uL [place] # (Auto) 0.83 H (0.11-0.59) K/uL Eos # (Auto) 0.05 (0.00-0.50) K/uL Baso # (Auto) 0.02 (0.00-0.20) K/uL Immature Gran # (Auto) 0.06 (0.01-0.20) K/uL Polychromasia 1+ PT 15.7 H (9.0-12.0) Seconds INR 1.5 H (0.9-1.1) APTT 35.5 H (21.0-31.0) Seconds PTT Ratio 1.3 VBG pH (7.36-7.41) VBG pCO2 (38-50) mmHg VBG pO2 mmHg VBG HCO3 mmol/L VBG O2 Saturation % VBG Base Excess mEq/L POC Sodium (135-144) mmol/L Sodium (136-145) mmol/L POC Potassium (3.3-5.0) mmol/L Potassium (3.5-5.1) mmol/L POC Chloride (101-112) mmol/L Chloride (98-107) mmol/L Carbon Dioxide (21-32) mmol/L POC Total CO2 (24-31) mmol/L Anion Gap (3-11) POC Anion Gap (16-25) mmol/L POC BUN (7-18) mg/dl BUN (6-23) mg/dl Creatinine (0.6-1.2) mg/dl POC Creatinine (0.6-1.3) mg/dl Est Cr Clr Drug Dosing ml/min Est GFR ( Amer) ml/min Est GFR (Non-Af Amer) ml/min BUN/Creatinine Ratio (10-20) Glucose (70-99(Fasting)) mg/dl POC Glucose (other) (70-99) mg/dl Lactate (0.4-2.0) mmol/L Calcium (8.6-10.3) mg/dl POC Ioniz Calcium Magda (1.12-1.32) mmol/l Magnesium (1.7-2.4) mg/dl Total Bilirubin (0.2-1.0) mg/dl Direct Bilirubin (0-0.2) mg/dl AST (13-39) U/L ALT (7-52) U/L Alkaline Phosphatase (34-104) U/L Troponin I High Sens (0-14) pg/ml Total Protein (6.0-8.3) gm/dl Albumin (3.4-5.0) gm/dl Procalcitonin (0-0.5) ng/ml SARS-CoV-2, RNA, NAAT (NEGATIVE) Blood Type B Positive Antibody Screen POSITIVE A 05/29/23 05/29/23 05/29/23 Range/Units 20:27 20:27 20:27 WBC (4.8-10.8) K/ul RBC (4.20-5.40) M/uL Hgb (12.0-16.0) g/dl POC Hgb (12.0-16.0) g/dl Hct (37.0-47.0) % POC Hct (37-47) % MCV (80.0-100.0) fL MCH (25.0-34.0) pg MCHC (32.0-36.0) g/dL RDW Std Deviation (36.4-46.3) fL RDW Coeff of Veda (11.5-14.5) % Plt Count (130-400) K/uL Immature Gran % (Auto) % Neut % (Auto) % Lymph % (Auto) % [place] % (Auto) % Eos % (Auto) % Baso % (Auto) % Neut # (Auto) (1.40-6.50) K/uL Lymph # (Auto) (1.20-3.40) K/uL [place] # (Auto) (0.11-0.59) K/uL Eos # (Auto) (0.00-0.50) K/uL Baso # (Auto) (0.00-0.20) K/uL Immature Gran # (Auto) (0.01-0.20) K/uL Polychromasia PT (9.0-12.0) Seconds INR (0.9-1.1) APTT (21.0-31.0) Seconds PTT Ratio VBG pH (7.36-7.41) VBG pCO2 (38-50) mmHg VBG pO2 mmHg VBG HCO3 mmol/L VBG O2 Saturation % VBG Base Excess mEq/L POC Sodium (135-144) mmol/L Sodium 133 L (136-145) mmol/L POC Potassium (3.3-5.0) mmol/L Potassium 2.9 L (3.5-5.1) mmol/L POC Chloride (101-112) mmol/L Chloride 90 L (98-107) mmol/L Carbon Dioxide 32 (21-32) mmol/L POC Total CO2 (24-31) mmol/L Anion Gap 11 (3-11) POC Anion Gap (16-25) mmol/L POC BUN (7-18) mg/dl BUN 65 H (6-23) mg/dl Creatinine 3.49 H (0.6-1.2) mg/dl POC Creatinine (0.6-1.3) mg/dl Est Cr Clr Drug Dosing 11.5 ml/min Est GFR ( Amer) 15.5 ml/min Est GFR (Non-Af Amer) 13.4 ml/min BUN/Creatinine Ratio 18.6 (10-20) Glucose 170 H (70-99(Fasting)) mg/dl POC Glucose (other) (70-99) mg/dl Lactate 1.3 (0.4-2.0) mmol/L Calcium 8.3 L (8.6-10.3) mg/dl POC Ioniz Calcium Magda (1.12-1.32) mmol/l Magnesium 1.8 (1.7-2.4) mg/dl Total Bilirubin 3.4 H (0.2-1.0) mg/dl Direct Bilirubin 1.9 H (0-0.2) mg/dl AST 45 H (13-39) U/L ALT 22 (7-52) U/L Alkaline Phosphatase 441 H (34-104) U/L Troponin I High Sens 17.2 H (0-14) pg/ml Total Protein 6.7 (6.0-8.3) gm/dl Albumin 2.9 L (3.4-5.0) gm/dl Procalcitonin 3.24 H (0-0.5) ng/ml SARS-CoV-2, RNA, NAAT (NEGATIVE) Blood Type Antibody Screen 05/29/23 05/29/23 05/29/23 Range/Units 20:27 20:30 20:31 WBC (4.8-10.8) K/ul RBC (4.20-5.40) M/uL Hgb (12.0-16.0) g/dl POC Hgb 8.2 L (12.0-16.0) g/dl Hct (37.0-47.0) % POC Hct 24 L (37-47) % MCV (80.0-100.0) fL MCH (25.0-34.0) pg MCHC (32.0-36.0) g/dL RDW Std Deviation (36.4-46.3) fL RDW Coeff of Veda (11.5-14.5) % Plt Count (130-400) K/uL Immature Gran % (Auto) % Neut % (Auto) % Lymph % (Auto) % [place] % (Auto) % Eos % (Auto) % Baso % (Auto) % Neut # (Auto) (1.40-6.50) K/uL Lymph # (Auto) (1.20-3.40) K/uL [place] # (Auto) (0.11-0.59) K/uL Eos # (Auto) (0.00-0.50) K/uL Baso # (Auto) (0.00-0.20) K/uL Immature Gran # (Auto) (0.01-0.20) K/uL Polychromasia PT (9.0-12.0) Seconds INR (0.9-1.1) APTT (21.0-31.0) Seconds PTT Ratio VBG pH 7.51 H (7.36-7.41) VBG pCO2 47 (38-50) mmHg VBG pO2 42 mmHg VBG HCO3 38 mmol/L VBG O2 Saturation 71.9 % VBG Base Excess 12.7 mEq/L POC Sodium 132 L (135-144) mmol/L Sodium (136-145) mmol/L POC Potassium 2.8 L (3.3-5.0) mmol/L Potassium (3.5-5.1) mmol/L POC Chloride 88 L (101-112) mmol/L Chloride (98-107) mmol/L Carbon Dioxide (21-32) mmol/L POC Total CO2 33 H (24-31) mmol/L Anion Gap (3-11) POC Anion Gap 16.0 (16-25) mmol/L POC BUN 61 H (7-18) mg/dl BUN (6-23) mg/dl Creatinine (0.6-1.2) mg/dl POC Creatinine 3.8 H (0.6-1.3) mg/dl Est Cr Clr Drug Dosing ml/min Est GFR ( Amer) ml/min Est GFR (Non-Af Amer) ml/min BUN/Creatinine Ratio (10-20) Glucose (70-99(Fasting)) mg/dl POC Glucose (other) 165 H (70-99) mg/dl Lactate (0.4-2.0) mmol/L Calcium (8.6-10.3) mg/dl POC Ioniz Calcium Magda 0.96 L (1.12-1.32) mmol/l Magnesium (1.7-2.4) mg/dl Total Bilirubin (0.2-1.0) mg/dl Direct Bilirubin (0-0.2) mg/dl AST (13-39) U/L ALT (7-52) U/L Alkaline Phosphatase (34-104) U/L Troponin I High Sens (0-14) pg/ml Total Protein (6.0-8.3) gm/dl Albumin (3.4-5.0) gm/dl Procalcitonin (0-0.5) ng/ml SARS-CoV-2, RNA, NAAT NEGATIVE (NEGATIVE) Blood Type Antibody Screen Imaging Data Radiologist's Impression: Chest X-Ray 05/29/23 20:06 SINGLE VIEW CHEST CLINICAL HISTORY: Sepsis. FINDINGS: 2 AP, portable, upright chest radiographs are obtained to study dated 02/17/2023. A right internal jugular central venous infusion port is unchanged in position. The heart is enlarged noting atherosclerotic calcification of the thoracic area the pulmonary vasculature is noncongested. Chronic interstitial thickening is similar to previous. The lungs and pleural spaces are clear. No pneumothorax is seen. The skeletal structures are osteopenic. The skeletal str uctures are osteopenic. The bony thorax is grossly intact. Surgical clips are seen in the upper abdomen. IMPRESSION: No active disease in the chest. ACT 112: Negative or not required by law. Electronically signed by: Jerald Sanders M.D. 05/29/2023 9:[address] 05/29/23 20:06 CT SCAN OF THE BRAIN WITHOUT IV CONTRAST CLINICAL HISTORY: Syncope. COMPARISON STUDY: CT of the brain dated 12/18/2020. TECHNIQUE: Unenhanced axial CT scan of the brain is performed from the vertex to the skull base. A dose lowering technique was utilized adhering to the principles of ALARA. FINDINGS: Brain parenchyma: The brain parenchyma is normal in appearance. There is no hemorrhage, mass effect, or evidence of acute territorial ischemia by CT criteria. Mclean-white matter differentiation is preserved. No extra-axial fluid collection is seen. Ventricles, sulci, cisterns: Normal in configuration. Intracranial vasculature: There is atherosclerotic calcification of the cavernous carotid and vertebral arteries. Calvarium: Unremarkable. Sinuses and mastoids: There is near complete opacification of the right sphenoid sinus. Thickening and sclerosis of the sinus wall suggests chronicity. The remaining visualized paranasal sinuses are clear. The mastoid air cells are well pneumatized. Orbits: The bony orbits are grossly intact. IMPRESSION: There is no hemorrhage, mass effect, or evidence of acute territorial ischemia by CT criteria. ACT 112: Negative or not required by law. Electronically signed by: Jerald Sanders M.D. 05/29/2023 9:22 PM Abdomen/Pelvis CT 05/29/23 20:32 Exam(s): CT ABDOMEN + PELVIS Without Contrast EXAM: CT Abdomen and Pelvis Without Intravenous Contrast CLINICAL HISTORY: Reason for exam: syncope dysuria recent uti colon cancer. TECHNIQUE: Axial computed tomography images of the abdomen and pelvis without intravenous contrast. CTDI is 9.82 mGy and DLP is 415.4 mGy-cm. Automated exposure control was utilized for the study. A dose lowering technique was utilized adhering to the principles of ALARA. COMPARISON: No relevant prior studies available. FINDINGS: Lung bases: Unremarkable. No mass. No consolidation. ABDOMEN: Liver: See below. Gallbladder and bile ducts: Unremarkable. No calcified stones. No ductal dilation. Pancreas: Unremarkable. No ductal dilation. Spleen: Multiple calcified splenic and hepatic lesions, measuring up to 4.9 x 4.1 cm in the RIGHT hepatic lobe. Metastatic disease cannot be excluded. Evaluation is limited due to lack of contrast. Adrenals: Unremarkable. No mass. Kidneys and ureters: Unremarkable. No hydronephrosis or nephrolithiasis. Stomach and bowel: Colectomy. RIGHT lower quadrant ostomy. No parastomal hernia. Evaluation of the bowel is limited due to lack of oral contrast. No obstruction. PELVIS: Appendix: See above. Bladder: Mild thickening of the urinary bladder which contains air, correlate for recent Kaminski catheter. UTI not excluded, urinalysis recommended. No stones. Reproductive: Unremarkable as visualized. ABDOMEN and PELVIS: Intraperitoneal space: Unremarkable. No free air. No significant fluid collection. Bones/joints: Degenerative changes of the spine. No acute fracture. No dislocation. Soft tissues: See above. Vasculature: Atherosclerotic changes of the aorta. No abdominal aortic aneurysm. Lymph nodes: Unremarkable. No enlarged lymph nodes. IMPRESSION: 1. Multiple calcified splenic and hepatic lesions, measuring up to 4.9 x 4.1 cm in the RIGHT hepatic lobe. Metastatic disease cannot be excluded. Evaluation is limited due to lack of contrast. 2. Mild thickening of the urinary bladder which contains air, correlate for recent Kaminski catheter. UTI not excluded, urinalysis recommended. 3. Colectomy. RIGHT lower quadrant ostomy. No parastomal hernia. 4. Evaluation of the bowel is limited due to lack of oral contrast. Electronically signed by: Javier An MD 05/29/23 21:26 PM ECG Data Attestation: I personally reviewed and interpreted this ECG as follows: Rate (beats per minute): 91 Rhythm: + normal sinus ECG Intervals/blocks: + Normal IL and + Normal QT-c ECG ST segments: + Normal ST segments Additional Comments: QRS 68 MDM Narrative 2002: The patient was evaluated in room B9. A complete history and physical exam was performed Cardiac monitoring: An order was placed for continuous cardiac monitoring. The monitor shows a rate of 90 with sinus rhythm interpreted by me.. 2129: Vital signs improved with IV fluids. Patient is given a total of 1500 normal saline bolus, approximately 30 cc/kg bolus. Patient's lactic acid is within normal limits. White blood cell count of 9. Hemoglobin 7.8. Coagulation studies within normal limits. Sodium 133. Potassium 2.9. Creatinine 3.49 up from 2.51 approximately 10 days ago. Total bilirubin 3.4. Direct bilirubin 1.9. AST 45. ALT 22. High-sensitivity troponin 17.2. Procalcitonin 3.24. COVID-negative. CT of the head negative. Chest x-ray negative. CT of the abdomen pelvis shows multiple calcified splenic and hepatic lesions. Multiple metastatic lesions were seen in the liver on previous CT scans. There is marked thickening of the urinary bladder. Grossly the patient's urinalysis appears infected very cloudy appearing. Patient be treated empirically with IV antibiotics. Rocephin ordered for the patient after discussing with pharmacy, patient has a listed allergy to penicillins but has received cephalosporins in the past thus Rocephin was thought to be safe. [facility] be [facility] hospitalist team Dr. Waldrop notified. Impression & Plan UTI (urinary tract infection), Chronic ITP (idiopathic thrombocytopenia), ABILIO (acute kidney injury), Acute hypokalemia Discharge Plan Visit Data Chief Complaint: Dizziness Stated Complaint: DIZZY, PASSING OUT ED Provider: Franklin Castellon Discharge Problem: UTI (urinary tract infection), Chronic ITP (idiopathic thrombocytopenia), ABILIO (acute kidney injury), Acute hypokalemia Patient Disposition: Admitted As Inpatient Forms Stand Alone Forms: My [facility] Prescriptions Prescriptions: No Action multivitamin Tablet 1 tab PO QAM latanoprost [Xalatan] 0.005 % Drops 1 drp OPB HS brimonidine [Alphagan P] 0.1 % Drops 1 drp OPB TID cholecalciferol (vitamin D3) [Vitamin D3] 2,000 unit Capsule 2,000 unit PO QAM ondansetron HCl 8 mg Tablet 8 mg PO Q8H PRN (Reason: Nausea) prochlorperazine maleate 10 mg tablet 10 mg PO Q6 PRN (Reason: Nausea) potassium chloride 10 mEq capsule, extended release 10 meq PO DAILY allopurinol 100 mg tablet 200 mg PO DAILY Referrals Referrals: Ney Chisholm [Primary Care Provider] -
--- NOTE | 2023-05-29 22:42 | History & Physical Report ---
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 Patient denies chest pain, palpitations or dizziness. -Admit to medical telemetry Check orthostatic vital signs x1 Trend troponin to peak (2) UTI (urinary tract infection): Plan: Patient reports thick, brown vaginal discharge as well as purulent appearing urine and pneumaturia likely UTI. Patient also complaining of vaginal discharge. Given patient's prolonged history of GI malignancy some concern for possible tumor erosion versus fistula formation contributing to vaginal discharge as well as UTI/pneumaturia Follow cultures, blood and urine sent from the ER Further assessment for possible fistula - consider [employer] vs Urology consultation Continue antibiotics with Zosyn Maintenance fluids with LR at 80 mL/h x 1 (3) ABILIO (acute kidney injury): Plan: Mild elevation of BUN and creatinine from baseline. Patient reports normal urine output -IV fluids with LR Avoid nephrotoxic agents Renal dosing are needed Repeat chemistry in the morning Careful potassium repletion (4) Anemia: Plan: Patient with chronic baseline anemia. Hemoglobin today is slightly lower than baseline at 7.8. No active bleeding suspected Continue to monitor H/H. Should patient need a transfusion she does have multiple blood antibodies x3. She would need irradiated blood. Blood would need to be requested from the [facility] and would take several hours to arrive. (5) Acute hypokalemia: Plan: K equals 2.8 Patient administered 80 mEq p.o. in the ER Repeat chemistry in the morning Continue Klor-Con 10 milliequivalents p.o. 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 Patient follows with Dr. Henderson and is currently being treated with chemotherapy. 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 She sat down and the sensation passed. She denies chest pain, palpitations, cough, shortness of breath, focal numbness/tingling/weakness. She also reports several days of thick, brown vaginal discharge as well as cloudy, purulent appearing urine and passing air. She was recently diagnosed with a UTI and was treated with Bactrim which was discontinued due to some renal compromise. She then completed treatment with Macrobid. Patient denies fever, chills, chest pain, cough, shortness of breath. Denies abdominal pain, nausea, vomiting. She has an colostomy in place with normal output. She does admit to occasional dizziness as well as dysuria. Otherwise no additional complaints. In the ER, she is afebrile, blood pressure borderline low. Normal respiratory status with adequate oxygenation on room air ER course: Normal saline x1500 mL Potassium 80 mEq p.o. Zosyn 4.5 g Allergies Allergy/AdvReac Type Severity Reaction Status Date / Time pineapple Allergy Severe anaphylaxis Verified 05/29/23 21:42 cantaloupe Allergy Intermediate Hives Verified 05/29/23 21:42 [place] [employer] Allergy Intermediate hives Verified 05/29/23 21:42 clarithromycin Allergy Intermediate hives Verified 05/29/23 21:42 naproxen Allergy Intermediate hives Verified 05/29/23 21:42 Penicillins Allergy Intermediate hives Verified 05/29/23 21:42 tomato Allergy Intermediate hives, Verified 05/29/23 21:42 throat tightness latex Allergy Mild rash Verified 05/29/23 21:42 Home Medications Medication Instructions Recorded Confirmed Type brimonidine 0.1 % eye drops 1 drp OPB TID 05/12/19 05/29/23 History (Alphagan P) cholecalciferol (vitamin D3) 50 2,000 unit PO QAM 05/12/19 05/29/23 History mcg (2,000 unit) capsule (Vitamin D3) latanoprost 0.005 % eye drops 1 drp OPB HS 05/12/19 05/29/23 History (Xalatan) multivitamin 1 tab PO QAM 05/12/19 05/29/23 History ondansetron HCl 8 mg tablet 8 mg PO Q8H PRN Nausea 12/18/20 05/29/23 History prochlorperazine maleate 10 mg 10 mg PO Q6 PRN Nausea 12/18/20 05/29/23 History tablet allopurinol 100 mg tablet 200 mg PO DAILY 02/17/23 05/29/23 History potassium chloride 10 mEq 10 meq PO DAILY 02/17/23 05/29/23 History capsule,extended release Past Med/Surg History Medical History Acute hypokalemia Acute kidney injury superimposed on CKD Anemia chronic, baseline hgb 9-11 range per chart review Borderline diabetes diet controlled Chronic ITP (idiopathic thrombocytopenia) platelet WNL on 06/01/20 labs High cholesterol Hyponatremia Mucinous adenocarcinoma of appendix (~03/2013) 2013 Pancreatitis post-op (2014) 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, chemo currently Surgical History Encounter for insertion of venous access port 2012 (subsequent removal) History of laparotomy USO + salipngectomy Hx laparoscopic cholecystectomy 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 Family History Other Diabetes Heart disease Hypertension Stroke Social History Smoking Status: Never smoker Second Hand Exposure: No; Do You Dip or Chew Tobacco: No; Tobacco Cessation Education Requested by Patient: No Hx Alcohol Use: No Hx Substance Use: No Preferred Language: Ukrainian Communication Ability: Effective Coding Spec Required: No Beliefs That Will Affect Care: None marital status: Current Living Situation: Family Current Living Situation Comment: lives with son Other Information That Helps Us Care for You: No Feels Safe at Home: Yes Safety Concerns: Feels Safe At This Time Assistive Devices: None Review of Systems Review of Systems: All systems reviewed & are unremarkable except as noted in HPI & below Physical Exam Physical Exam: General: Thin female patient resting comfortably, NAD, non-toxic in appearance, AA&O x 4 Skin: warm, dry, intact, no rashes or lesions HEENT: NC/AT, PERRL, EOMI, anicteric sclera, conjunctiva without injection, external ear normal to inspection and nontender, nares patent, moist mucus membranes, dentition intact, no oropharyngeal lesions, neck supple, trachea midline, no LAD, no thyromegaly, no JVD Heart: +S1/S2, regular, no m/r/g, port present chest wall, nontender, no erythema Lungs: equal air entry bilaterally, no rales/rhonchi/wheezes Abd: +BS, soft, NT/ND, no masses/organomegaly/ascites, colostomy Ext: warm, 2+ pulses in UE/LE bilaterally, no clubbing/cyanosis or edema Neuro: nonfocal, patient AA&O x 4, speech intact, no facial droop, moving all extremities on command with equal strength 5/5 Results & Data Results & Data Vital Signs (Past 12 Hours) Vital Signs Temp Pulse Resp BP Pulse Ox O2 Del Method 05/29/23 21:46 90 22 100 05/29/23 21:46 108/61 05/29/23 21:40 94 H 14 05/29/23 21:30 86 21 94 05/29/23 21:30 102/50 L 05/29/23 21:20 89 19 95 05/29/23 21:10 88 21 95 05/29/23 21:00 88 19 05/29/23 21:00 97/51 L 05/29/23 20:57 85 22 05/29/23 20:51 86 13 05/29/23 20:31 85 12 100 05/29/23 20:31 85 05/29/23 19:56 37.5 C 98 H 22 93/57 L 100 Room Air Laboratory Results Laboratory Results WBC 9.00 K/ul (4.8-10.8) 05/29/23 20:27 RBC 2.77 M/uL (4.20-5.40) L 05/29/23 20:27 Hgb 7.8 g/dl (12.0-16.0) L 05/29/23 20:27 POC Hgb 8.2 g/dl (12.0-16.0) L 05/29/23 20:30 Hct 23.9 % (37.0-47.0) L 05/29/23 20:27 POC Hct 24 % (37-47) L 05/29/23 20:30 MCV 86.3 fL (80.0-100.0) 05/29/23 20:27 MCH 28.2 pg (25.0-34.0) 05/29/23 20: MCHC 32.6 g/dL (32.0-36.0) 05/29/23 20: RDW Std Deviation 52.3 fL (36.4-46.3) H 05/29/23: RDW Coeff of Veda 16.7 % (11.5-14.5) H 05/29/23: Plt Count 157 K/uL (130-400) 05/29/23: Immature Gran % (Auto) 0.7 % 05/29/23: Neut % (Auto) 76.3 % 05/29/23: Lymph % (Auto) 13.0 % 05/29/23: [place] % (Auto) 9.2 % 05/29/23: Eos % (Auto) 0.6 % 05/29/23: Baso % (Auto) 0.2 % 05/29/23: Neut # (Auto) 6.87 K/uL (1.40-6.50) H 05/29/23 20: Lymph # (Auto) 1.17 K/uL (1.20-3.40) L 05/29/23: [place] # (Auto) 0.83 K/uL (0.11-0.59) H 05/29/23 20: Eos # (Auto) 0.05 K/uL (0.00-0.50) 05/29/23: Baso # (Auto) 0.02 K/uL (0.00-0.20) 05/29/23: Immature Gran # (Auto) 0.06 K/uL (0.01-0.20) 05/29/23: Polychromasia 1+ 05/29/23: PT 15.7 Seconds (9.0-12.0) H 05/29/23 20: INR 1.5 (0.9-1.1) H 05/29/23: APTT 35.5 Seconds (21.0-31.0) H 05/29/23: PTT Ratio 1.3 05/29/23: VBG pH 7.51 (7.36-7.41) H 05/29/23 20: VBG pCO2 47 mmHg (38-50) 05/29/23 20: VBG pO2 42 mmHg 05/29/23 20: VBG HCO3 38 mmol/L 05/29/23 20: VBG O2 Saturation 71.9 % 05/29/23 20: VBG Base Excess 12.7 mEq/L 05/29/23 20: POC Sodium 132 mmol/L (135-144) L 05/29/23 20: Sodium 133 mmol/L (136-145) L 05/29/23 20: POC Potassium 2.8 mmol/L (3.3-5.0) L 05/29/23 20: Potassium 2.9 mmol/L (3.5-5.1) L 05/29/23 20: POC Chloride 88 mmol/L (101-112) L 05/29/23 20: Chloride 90 mmol/L (98-107) L 05/29/23: Carbon Dioxide 32 mmol/L (21-32) 05/29/23 20: POC Total CO2 33 mmol/L (24-31) H 05/29/23 20: Anion Gap 11 (3-11) 05/29/23: POC Anion Gap 16.0 mmol/L (16-25) 05/29/23 20: POC BUN 61 mg/dl (7-18) H 05/29/23 20: BUN 65 mg/dl (6-23) H 05/29/23: Creatinine 3.49 mg/dl (0.6-1.2) H 05/29/23 20: POC Creatinine 3.8 mg/dl (0.6-1.3) H 05/29/23 20: Est Cr Clr Drug Dosing 11.5 ml/min 05/29/23 20: Est GFR ( Amer) 15.5 ml/min 05/29/23: Est GFR (Non-Af Amer) 13.4 ml/min 05/29/23 20: BUN/Creatinine Ratio 18.6 (10-20) 05/29/23 20: Glucose 170 mg/dl (70-99(Fasting)) H 05/29/23 20: POC Glucose (other) 165 mg/dl (70-99) H 05/29/23 20: Lactate 1.3 mmol/L (0.4-2.0) 05/29/23 20: Calcium 8.3 mg/dl (8.6-10.3) L 05/29/23 20: POC Ioniz Calcium Magda 0.96 mmol/l (1.12-1.32) L 05/29/23 20: Magnesium 1.8 mg/dl (1.7-2.4) 05/29/23 20: Total Bilirubin 3.4 mg/dl (0.2-1.0) H 05/29/23 20: Direct Bilirubin 1.9 mg/dl (0-0.2) H 05/29/23 20: AST 45 U/L (13-39) H 05/29/23 20: ALT 22 U/L (7-52) 05/29/23 20: Alkaline Phosphatase 441 U/L (34-104) H 05/29/23 20: Troponin I High Sens 17.2 pg/ml (0-14) H 05/29/23 20: Total Protein 6.7 gm/dl (6.0-8.3) 05/29/23 20: Albumin 2.9 gm/dl (3.4-5.0) L 05/29/23 20: Procalcitonin 3.24 ng/ml (0-0.5) H 05/29/23 20: Urine Color Dark Yellow 05/29/23 21:45 Urine Appearance Turbid (Clear) A 05/29/23 21:45 Urine pH 6.0 (4.5-7.5) 05/29/23 21:45 Ur Specific Kemp 1.012 (1.000-1.030) 05/29/23 21:45 Urine Protein 2+ (Negative) H 05/29/23 21:45 Urine Glucose (UA) Negative (Negative) 05/29/23 21:45 Urine Ketones Negative (Negative) 05/29/23 21:45 Urine Blood 3+ (Negative) H 05/29/23 21:45 Urine Nitrite Negative (Negative) 05/29/23 21:45 Urine Bilirubin 1+ (Negative) H 05/29/23 21:45 Urine Urobilinogen Negative (Negative) 05/29/23 21:45 Ur Leukocyte Esterase 3+ (Negative) H 05/29/23 21:45 Urine WBC (Auto) >30 /hpf (0-5) H 05/29/23 21:45 Urine RBC (Auto) >30 /hpf (0-4) H 05/29/23 21:45 U Hyaline Cast (Auto) 1-5 /lpf (0-5) 05/29/23 21:45 U Epithel Cells (Auto) >30 /lpf (0-5) H 05/29/23 21:45 Urine Bacteria (Auto) 3+ (Negative) H 05/29/23 21:45 Ur Renal Epithelial Cell Not Reportable 05/29/23 21:45 Amorphous Sediment Present (None Prsent) A 05/29/23 21:45 Urine Yeast Not Reportable 05/29/23 21:45 SARS-CoV-2, RNA, NAAT NEGATIVE (NEGATIVE) 05/29/23 20:31 Blood Type B Positive 05/29/23 20: Antibody Screen POSITIVE A 05/29/23 20: Antibody Identification Anti-E 05/29/23 20:27 Impressions Chest X-Ray 05/29/23 20:06 SINGLE VIEW CHEST CLINICAL HISTORY: Sepsis. FINDINGS: 2 AP, portable, upright chest radiographs are obtained to study dated 02/17/2023. A right internal jugular central venous infusion port is unchanged in position. The heart is enlarged noting atherosclerotic calcification of the thoracic area the pulmonary vasculature is noncongested. Chronic interstitial thickening is similar to previous. The lungs and pleural spaces are clear. No pneumothorax is seen. The skeletal structures are osteopenic. The skeletal stru ctures are osteopenic. The bony thorax is grossly intact. Surgical clips are seen in the upper abdomen. IMPRESSION: No active disease in the chest. ACT 112: Negative or not required by law. Electronically signed by: Jerald Sanders M.D. 05/29/2023 9:[address] 05/29/23 20:06 CT SCAN OF THE BRAIN WITHOUT IV CONTRAST CLINICAL HISTORY: Syncope. COMPARISON STUDY: CT of the brain dated 12/18/2020. TECHNIQUE: Unenhanced axial CT scan of the brain is performed from the vertex to the skull base. A dose lowering technique was utilized adhering to the principles of ALARA. FINDINGS: Brain parenchyma: The brain parenchyma is normal in appearance. There is no hemorrhage, mass effect, or evidence of acute territorial ischemia by CT criteria. Mclean-white matter differentiation is preserved. No extra-axial fluid collection is seen. Ventricles, sulci, cisterns: Normal in configuration. Intracranial vasculature: There is atherosclerotic calcification of the cavernous carotid and vertebral arteries. Calvarium: Unremarkable. Sinuses and mastoids: There is near complete opacification of the right sphenoid sinus. Thickening and sclerosis of the sinus wall suggests chronicity. The remaining visualized paranasal sinuses are clear. The mastoid air cells are well pneumatized. Orbits: The bony orbits are grossly intact. IMPRESSION: There is no hemorrhage, mass effect, or evidence of acute territorial ischemia by CT criteria. ACT 112: Negative or not required by law. Electronically signed by: Jeradl Sanders M.D. 05/29/2023 9:22 PM Abdomen/Pelvis CT 05/29/23 20:32 Exam(s): CT ABDOMEN + PELVIS Without Contrast EXAM: CT Abdomen and Pelvis Without Intravenous Contrast CLINICAL HISTORY: Reason for exam: syncope dysuria recent uti colon cancer. TECHNIQUE: Axial computed tomography images of the abdomen and pelvis without intravenous contrast. CTDI is 9.82 mGy and DLP is 415.4 mGy-cm. Automated exposure control was utilized for the study. A dose lowering technique was utilized adhering to the principles of ALARA. COMPARISON: No relevant prior studies available. FINDINGS: Lung bases: Unremarkable. No mass. No consolidation. ABDOMEN: Liver: See below. Gallbladder and bile ducts: Unremarkable. No calcified stones. No ductal dilation. Pancreas: Unremarkable. No ductal dilation. Spleen: Multiple calcified splenic and hepatic lesions, measuring up to 4.9 x 4.1 cm in the RIGHT hepatic lobe. Metastatic disease cannot be excluded. Evaluation is limited due to lack of contrast. Adrenals: Unremarkable. No mass. Kidneys and ureters: Unremarkable. No hydronephrosis or nephrolithiasis. Stomach and bowel: Colectomy. RIGHT lower quadrant ostomy. No parastomal hernia. Evaluation of the bowel is limited due to lack of oral contrast. No obstruction. PELVIS: Appendix: See above. Bladder: Mild thickening of the urinary bladder which contains air, correlate for recent Kaminski catheter. UTI not excluded, urinalysis recommended. No stones. Reproductive: Unremarkable as visualized. ABDOMEN and PELVIS: Intraperitoneal space: Unremarkable. No free air. No significant fluid collection. Bones/joints: Degenerative changes of the spine. No acute fracture. No dislocation. Soft tissues: See above. Vasculature: Atherosclerotic changes of the aorta. No abdominal aortic aneurysm. Lymph nodes: Unremarkable. No enlarged lymph nodes. IMPRESSION: 1. Multiple calcified splenic and hepatic lesions, measuring up to 4.9 x 4.1 cm in the RIGHT hepatic lobe. Metastatic disease cannot be excluded. Evaluation is limited due to lack of contrast. 2. Mild thickening of the urinary bladder which contains air, correlate for recent Kaminski catheter. UTI not excluded, urinalysis recommended. 3. Colectomy. RIGHT lower quadrant ostomy. No parastomal hernia. 4. Evaluation of the bowel is limited due to lack of oral contrast. Electronically signed by: Javier An MD 05/29/23 21:26 PM Code Status & VTE Plan VTE Prophylaxis Plan VTE Prophylaxis will be ordered: Yes PG Care Time/CCT Total # of Minutes Spent Total Time Spent with Patient: Total time spent is greater than 50% in coordination of care (as documented) at patient's floor/unit and/or counseling patient: Coding Level of Care Code 93895 INT INP/OBS CARE 3/75MIN Diagnoses Near syncope R55 UTI (urinary tract infection) N39.0 ABILIO (acute kidney injury) N17.9 Anemia D64.9 Acute hypokalemia E87.6
[2023-05-29 22:43] LABS: Amorphous Sediment Urine Present (None Prsent); Bacteria Urine Automated 3+ (Negative); RBC Urine Automated >30 /hpf (0-4)
[2023-05-29] MEDS ORDERED: PIPERACILLIN/TAZOBACTAM 4.5 GM/100 ML BAG IV ONE (23:05)
[2023-05-29] MEDS ORDERED: PIPERACILLIN/TAZOBACTAM 4.5 GM/100 ML BAG IV STA (23:31)
[2023-05-29] MEDS ORDERED: POTASSIUM CHLORIDE 10 MEQ TABCR PO ONE (23:38)
[2023-05-30] MEDS ORDERED: POTASSIUM CHLORIDE CRTAB 20 MEQ TABCR PO STA (01:05)
[2023-05-30] MEDS ORDERED: PROCHLORPERAZINE MALEATE 10 MG TAB PO PRN (01:05)
[2023-05-30] MEDS ORDERED: LACTATED RINGER'S 1,000 ML IV SCH (01:05)
[2023-05-30] MEDS: ENOXAPARIN INJ 30 MG/0.3 ML SYR SQ SCH (05:53)
--- NOTE | 2023-05-30 06:47 | Hospitalist Progress Note ---
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 Patient denies chest pain, palpitations or dizziness. Near Syncopal Episode + orthostatic vital signs, also found to be anemic mildly elevated troponin trended to peak - continue to monitor on telemetry Normocytic Anemia Patient with chronic baseline anemia. - No signs of active bleeding. - Hbg 05/30 qAM= 6.8, blood was unable to be matched until mid day and repeat at that time was 8, so held off on transfusion Continue to monitor H/H and plan to transfuse if <7 Should patient need a transfusion she does have multiple blood antibodies x3. She would need irradiated blood. 2 units cross matched. UTI Patient reports thick, brown vaginal discharge as well as purulent appearing urine and pneumaturia likely UTI. Patient also complaining of vaginal discharge. Given patient's prolonged history of GI malignancy some concern for possible tumor erosion versus fistula formation contributing to vaginal discharge as well as UTI/pneumaturia Follow cultures, blood without growth and urine with gram + bacilli Further assessment for possible fistula - attempted pelvic exam but limited due to pain. Did get vaginal sample for cutlure. On exam noted from vaginal bleeding. - Will consult Loan Reviewer, appreciate recommendations Continue antibiotics with Zosyn, will deescalate pending blood cultures ABILIO Mild elevation of BUN and creatinine from baseline. Patient reports normal urine output -IV fluids with LR Avoid nephrotoxic agents Renal dosing are needed Downtrending from yesterday, Continue to trend Careful potassium repletion Hypokalemia - Repleted Continue Klor-Con 10 milliequivalents p.o. daily - Continue to trend ProphylaxisLovenox Codefull (2) UTI (urinary tract infection): (3) ABILIO (acute kidney injury): (4) Anemia: (5) Acute hypokalemia: Admission and Anticipated Discharge Date Admission Date: May 29, 2023 Supervising Physician Co-Signing Physician Notes I personally examined the patient and verified amin points of history and exam, discussed case, and agree with decision making and plan documented by Dr. Brown. Patient reports near syncopal event at work. Will monitor hemoglobin closely, transfuse if necessary. Patient undergoing chemotherapy. States she's experienced increased vaginal discharge and spotting and bubbles with urination. Recent treatment for UTI. Appreciate gynecology recommendations. Urology consult placed. Subjective Pt seen at bedside this morning. Overall feeling better, denies any further syncopal episodes. Does note she has been having brown, malodorous d/c from her vagina and some bleeding. Review of Systems Review of Systems: As per above Physical Exam Physical Exam: Constitutional: well-appearing, no acute distress HEENT: NCAT, no conjunctival injection CV: regular rhythm, no murmur appreciated, extremities well-perfused, no LE edema Resp: CTABL, no wheezes/rales/rhonchi appreciated, no increased work of breathing GI: soft, nondistended, nontender, ostomy in place MSK: no gross deformities appreciated Skin: warm, dry, no rash appreciated Neuro: alert, oriented, no focal neurologic deficit appreciated : pelvic exam unable to be performed due to discorcort, bimanual exam with pain but no acute abnormalities. Bleeding noted. Results & Data Results & Data Vital Signs (Past 12 Hours) Vital Signs Temp Pulse Pulse Resp BP BP Pulse Ox 05/30/23 04:03 37.3 C 82 20 94/52 L 100 05/30/23 00:58 87 05/30/23 01:06 37.4 C 80 14 86/46 L 99 05/30/23 00:30 78 22 99 05/30/23 00:30 101/52 L 05/30/23 00:29 93/51 L 05/30/23 00:29 79 18 100 05/30/23 00:28 81 24 100 05/30/23 00:20 78 19 100 05/30/23 00:15 78 19 100 05/30/23 00:10 78 18 100 05/30/23 00:00 80 17 99 05/30/23 00:00 87/44 L 05/29/23 23:50 83 19 61 L 05/29/23 23:45 84 18 93 05/29/23 23:45 100/52 L 05/29/23 23:40 82 21 99 05/29/23 23:30 86 20 05/29/23 23:30 105/54 L 05/29/23 23:20 83 19 100 05/29/23 23:15 83 19 97 05/29/23 23:15 97/46 L 05/29/23 23:10 81 17 100 05/29/23 23:00 79 17 100 05/29/23 23:00 92/48 L 05/29/23 22:50 84 19 97 05/29/23 22:45 80 0 L 99 05/29/23 22:45 104/52 L 05/29/23 22:40 83 27 H 100 05/29/23 22:30 84 20 97 05/29/23 22:30 99/51 L 05/29/23 22:20 85 16 93 05/29/23 22:15 84 14 99 05/29/23 22:15 103/49 L 05/29/23 22:10 84 20 100 05/29/23 22:00 87 21 100 05/29/23 22:00 101/56 L 05/29/23 21:50 88 16 99 05/29/23 21:46 90 22 100 05/29/23 21:46 108/61 05/29/23 21:40 94 H 14 05/29/23 21:30 86 21 94 05/29/23 21:30 102/50 L 05/29/23 21:20 89 19 95 05/29/23 21:10 88 21 95 05/29/23 21:00 88 19 05/29/23 21:00 97/51 L 05/29/23 20:57 85 22 05/29/23 20:51 86 13 05/29/23 20:31 85 12 100 05/29/23 20:31 85 05/29/23 19:56 37.5 C 98 H 22 93/57 L 100 O2 Del Method 05/30/23 04:03 Room Air 05/30/23 00:58 05/30/23 01:06 Room Air 05/30/23 00:30 05/30/23 00:30 05/30/23 00:29 05/30/23 00:29 05/30/23 00:28 05/30/23 00:20 05/30/23 00:15 05/30/23 00:10 05/30/23 00:00 05/30/23 00:00 05/29/23 23:50 05/29/23 23:45 05/29/23 23:45 05/29/23 23:40 05/29/23 23:30 05/29/23 23:30 05/29/23 23:20 05/29/23 23:15 05/29/23 23:15 05/29/23 23:10 05/29/23 23:00 05/29/23 23:00 05/29/23 22:50 05/29/23 22:45 05/29/23 22:45 05/29/23 22:40 05/29/23 22:30 05/29/23 22:30 05/29/23 22:20 05/29/23 22:15 05/29/23 22:15 05/29/23 22:10 05/29/23 22:00 05/29/23 22:00 05/29/23 21:50 05/29/23 21:46 05/29/23 21:46 05/29/23 21:40 05/29/23 21:30 05/29/23 21:30 05/29/23 21:20 05/29/23 21:10 05/29/23 21:00 05/29/23 21:00 05/29/23 20:57 05/29/23 20:51 05/29/23 20:31 05/29/23 20:31 05/29/23 19:56 Room Air Resident Activity Tracking Resident Involvement: Resident Care Provided Care Provided: Adult Hospital Medicine
[2023-05-30 06:53] LABS: Hematocrit (blood only) 21.7 % (37.0-47.0); Hemoglobin 6.8 g/dl (12.0-16.0); Mean Corpuscular Hemoglobin 27.4 pg (25.0-34.0); Mean Corpuscular Hgb Conc 31.3 g/dL (32.0-36.0); Mean Corpuscular Volume 87.5 fL (80.0-100.0); Mean Platelet Volume 11.5 fL (9.4-12.4); Platelet Count 147 K/uL (130-400); RDW Coefficient of Variation 16.7 % (11.5-14.5); RDW Standard Deviation 53.4 fL (36.4-46.3); Red Blood Count 2.48 M/uL (4.20-5.40); White Blood Count 6.64 K/ul (4.8-10.8)
[2023-05-30 07:08] LABS: Albumin Level 2.3 gm/dl (3.4-5.0); Bilirubin Direct 1.7 mg/dl (0-0.2); Bilirubin,Total 2.9 mg/dl (0.2-1.0); Calcium 7.5 mg/dl (8.6-10.3); Creatinine Clr Calc Pharmacy 13.2 ml/min; Est GFR (African American) 18.2 ml/min; Est GFR (Non-African American) 15.7 ml/min; Potassium 3.7 mmol/L (3.5-5.1); Total Protein 5.4 gm/dl (6.0-8.3)
[2023-05-30 07:13] LABS: Troponin I High Sensitivity 17.7 pg/ml (0-14)
[2023-05-30] MEDS: allopurinoL 100 MG TAB PO SCH (09:08)
[2023-05-30] MEDS: POTASSIUM CHLORIDE 10 MEQ TABCR PO SCH (09:08)
[2023-05-30] MEDS ORDERED: SODIUM CHLORIDE 0.9% 250 ML IV PRN (09:56)
--- NOTE | 2023-05-30 12:15 | Electrocardiogram Report ---
Test Reason : Blood Pressure : / mmHG Vent. Rate : 091 BPM Atrial Rate : 091 BPM P-R Int : 158 ms QRS Dur : 068 ms QT Int : 384 ms P-R-T Axes : 081 014 057 degrees QTc Int : 472 ms Normal sinus rhythm Normal ECG When compared with ECG of 17-FEB-2023 10:55, No significant change was found Confirmed by Brad Lee ([id number]) on 05/30/2023 12:15:17 PM Referred By: REFERRED SELF Confirmed By:Brad Lee
[2023-05-30] MEDS: PIPERACILLIN/TAZOBACTAM 4.5 GM in DEXTROSE 5% MINI-B 100 ML IV SCH ×2 (12:30→23:45)
[2023-05-30 13:03] LABS: Hematocrit (blood only) 25.1 % (37.0-47.0)
--- NOTE | 2023-05-30 16:48 | OB/GYN Consultation ---
Date of Consultation May 30, 2023 Assessment & Plan (1) Enterovesical fistula: I am concerned for the presence of an enterovesical fistula, possibly new since last week, which may be the reason for her UTI symptoms and for the passage of liquid stool material with her voids as well as the air in her bladder and the thickened bladder moore, plus gram neg rods in her urine. Perhaps a urology consult could help determine whether this is in fact present. Meanwhile broad spectrum coverage for her UTI per primary team. (2) Enterovaginal fistula: Unclear to me if a vaginal fistula is present, and without the ability to do a vaginal exam I can't add much to the diagnostic workup. I don't think a vaginitis swab or STD swab will be very instructive here as the patient is not sexually active and was not complaining of symptoms of yeast or BV. The primary team's exam was documented as not having found an obvious wound or tract in the vagina, but a fistula is often tiny and hard to detect with a finger. However: the likelihood is that any vaginal fistula in a patient with her comorbidities would be difficult if not impossible to repair. It may even be difficult to identify as studies such as bubble tests and dye tests are often used, which Brooke may not tolerate, and even then the diagnosis can be tricky. A CT with oral contrast might have detected dye passing into the vagina or bladder, but it also might not. The good news is that since repair / cure would not be likely as a goal, the treatment of any vaginal fistula can be focused on managing the symptoms without getting a formal diagnosis. Basically she will need to avoid irritation of the vulvar skin from chronic fecal matter leaking. Desitin or barrier ointment and good earnestine care are likely all she should really need. I am, however, much more concerned about an enterovesical fistula. Fecal bacteria entering the bladder could cause UTI that ascends with much more concerning consequences for her than vulvar skin irritation. See the above A/P, would consider urology consult. History of Present Illness Reason for Consultation: Possible vaginal fistula Attending Physician: Kirti Díaz DO History of Present Illness 62yo female admitted yesterday via ER after a spell of lightheadedness, currently under treatment with chemotherapy (irinotecan, 5FU, leucovorin) for primary mucinous adenocarcinoma of the appendix. C/O dysuria on arrival in the ER, as well as hematuria, and later also mentions pneumaturia based on review of notes. Patient has a history of bowel surgery including colectomy and a RLQ ostomy. I am consulted for suspicion of enterovaginal fistula. When I meet her today she tells me she usually gets her [facility] care at [facility], but does work with Dr. Fierro locally for her oncology care. 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 She believes she had a D&C in 2020 for postmenopausal bleeding, and although she doesn't remember the details very well, she said that after the D&C, "they thought I had ovarian cancer so I got everything out," specifying that she had the uterus, ovaries and tubes all removed. She notes she had already had her tubes tied much earlier. Ultimately she says she did NOT have ovarian cancer. I do not have the ability to check records to confirm any of this directly, however a note from [facility] seems to contradict at least some of it. To wit: patient is listed as having had surgery in 2012 for a "large ovarian mass" with [facility], who found and removed a "60cm" cystic appendiceal mass with invasion to R pelvic wall but no mention here of any or some of the die holder organs being removed, and the dates do not concur with patient's stated history either. A CT done in house here on 05/29/23, without oral contrast, refers to the reproductive organs as "unremarkable as visualized" without stating whether any of them are present or absent. Brooke tells me she just had an internal vaginal exam by the doctor on her primary team here at the hospital which was extremely painful and caused bleeding. She has been for years and not had vaginal penetration in a long time, so she was not surprised that the exam hurt so much - but she does not want any further vaginal exam by me at this time either, regardless of whether I would use speculum or just my hands. She notes that vaginal discharge (or at least discharge from somewhere on her bottom, appearing in her undergarment) began early last week. It was foul-smel ling and fecal in nature. She did not otherwise feel sick until yesterday when she was lightheaded and came to the ER. She lives with her only child, a son who was delivered by section, and who takes care of her. He brought her to the hospital here and will be visiting this evening with a grandchild of hers, about which Brooke is very happy. Brooke told me she really needed to go to the bathroom and asked me to get her nurse as I was concluding my conversation with her. Of note, that nurse shared that she put a clean diaper on Brooke who then was encouraged to void, which she did - and the diaper filled with urine and a significant amount of liquid stool, both at the same time. Allergies Allergy/AdvReac Type Severity Reaction Status Date / Time pineapple Allergy Severe anaphylaxis Verified 05/29/23 21:42 cantaloupe Allergy Intermediate Hives Verified 05/29/23 21:42 [place] And Derivatives Allergy Intermediate hives Verified 05/29/23 21:42 clarithromycin Allergy Intermediate hives Verified 05/29/23 21:42 naproxen Allergy Intermediate hives Verified 05/29/23 21:42 Penicillins Allergy Intermediate hives Verified 05/29/23 21:42 tomato Allergy Intermediate hives, Verified 05/29/23 21:42 throat tightness latex Allergy Mild rash Verified 05/29/23 21:42 lemon Allergy Verified 05/30/23 12:43 lemon oil Allergy Verified 05/30/23 12:43 red devil Allergy Verified 05/30/23 13:03 orange Allergy Verified 05/30/23 12:43 orange (food color) Allergy Verified 05/30/23 12:43 orange flavor Allergy Verified 05/30/23 12:43 orange juice Allergy Verified 05/30/23 12:43 Home Medications Medication Instructions Recorded Confirmed Type brimonidine 0.1 % eye drops 1 drp OPB TID 05/12/19 05/29/23 History (Alphagan P) cholecalciferol (vitamin D3) 50 2,000 unit PO QAM 05/12/19 05/29/23 History mcg (2,000 unit) capsule (Vitamin D3) latanoprost 0.005 % eye drops 1 drp OPB HS 05/12/19 05/29/23 History (Xalatan) multivitamin 1 tab PO QAM 05/12/19 05/29/23 History ondansetron HCl 8 mg tablet 8 mg PO Q8H PRN Nausea 12/18/20 05/29/23 History prochlorperazine maleate 10 mg 10 mg PO Q6 PRN Nausea 12/18/20 05/29/23 History tablet allopurinol 100 mg tablet 200 mg PO DAILY 02/17/23 05/29/23 History potassium chloride 10 mEq 10 meq PO DAILY 02/17/23 05/29/23 History capsule,extended release Patient History Medical History Acute hypokalemia Acute kidney injury superimposed on CKD Anemia chronic, baseline hgb 9-11 range per chart review Borderline diabetes diet controlled Chronic ITP (idiopathic thrombocytopenia) platelet WNL on 06/01/20 labs High cholesterol Hyponatremia Mucinous adenocarcinoma of appendix (~03/2013) 2012 Pancreatitis post-op (2014) 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, chemo currently Surgical History Encounter for insertion of venous access port 2012 (subsequent removal) History of laparotomy USO + salipngectomy Hx laparoscopic cholecystectomy 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 Family History Other Diabetes Heart disease Hypertension Stroke Social History Smoking Status: Never smoker Second Hand Exposure: No; Do You Dip or Chew Tobacco: No; Tobacco Cessation Education Requested by Patient: No Hx Alcohol Use: No Hx Substance Use: No Preferred Language: Icelandic Communication Ability: Effective Auto Damage Appraiser Required: No Beliefs That Will Affect Care: None marital status: Current Living Situation: Family Current Living Situation Comment: lives with son Other Information That Helps Us Care for You: No Feels Safe at Home: Yes Safety Concerns: Feels Safe At This Time Assistive Devices: None Physical Exam Physical Exam: Thin, edentulous, well groomed black female appearing older than stated age. Supine to R tilt lying in bed. [place] at chest level. NAD. Conversant and pleasant. See description of voided material in diaper above. Imaging reviewed including CT which showed thickened bladder moore and air in the bladder, which did not seem to correlate with an indwelling or recent catheterization, based on the timeline I can put together in her chart. Results & Data Vital Signs (Past 12 Hours) Vital Signs Temp Pulse Pulse Resp BP Pulse Ox O2 Del Method 05/30/23 16:28 98.1 F 84 18 92/53 L 95 Room Air 05/30/23 16:13 81 05/30/23 12:25 98.6 F 78 18 88/47 L 99 Room Air 05/30/23 07:41 98.8 F 79 18 85/40 L 98 Room Air 05/30/23 07:39 77 Laboratory Results GNR in urine noted. Appearance of urine in ER noted; cloudy, abnormal, turbulent. PG Care Time/CCT Total # of Minutes Spent Total Time Spent with Patient: Total time spent is greater than 50% in coordination of care (as documented) at patient's floor/unit and/or counseling patient: Coding Level of Care Code 04681 INT INP/OBS CARE 3/75MIN Diagnoses Enterovesical fistula N32.1 Enterovaginal fistula N82.4
[2023-05-30] MEDS: LATANOPROST 0.005% OP SOLN 2.5 ML BTL OPB SCH (20:51)
--- NOTE | 2023-05-30 21:28 | Urology Consultation ---
Date of Consultation May 30, 2023 Assessment & Plan (1) Enterovesical fistula: Patient has been admitted on the hospitalist service. Concerning the potential of a colovesical fistula we recommend the following: Clinically the patient does have signs and symptoms consistent with a colovesical fistula. At the present time the patient is resting comfortably in bed. She has been afebrile without tachycardia or significant leukocytosis and does not appear septic at this time Blood and urine cultures have been sent this admission. A vaginal culture has also been sent. Thus far the urine culture has grown gram-negative bacilli. Patient has been started on broad-spectrum antibiotics in the form of Zosyn. These antibiotics should be continued further culture data is available at which time antibiotics to be further tailored based on these results Concerning the potential of a colovesical fistula I will discuss with my attending physician potential diagnostic test that can be performed to ascertain this diagnosis. A cystoscopy could be considered but oftentimes is difficult to ascertain if a fistula is present as the bladder can appear significantly inflamed making identification of the fistulous tract difficult. We will discuss the possibility of perhaps performing a CT scan with rectal contrast or CT cystogram which may help identify fistula As the patient has an extensive oncologic history and has had numerous abdominal surgeries if the fistula is identified and she wishes to pursue surgical correction of this this would likely need to be performed with her surgical teams who performed her previous surgeries at [facility]. Additional recommendations be forthcoming after discussion with attending urologist. Supervising Physician Co-Signing Physician Notes Discussed patient with DEE. Agree with plan. Reviewed patient's chart and images as well as history. Saw patient personally. Suspect patient does have an enterovesical fistula given CT scan findings and symptoms. Discussed options with her including but not limited to observation, Kaminski catheter, or urinary diversion with nephrostomy tubes. Discussed other options including a separate colostomy versus a repair of the enterovesical fistula which I would not recommend as it would be an incredibly challenging surgery given her history and disease process. I do not think a cystoscopy will aid us in the further diagnosis at this time. She would prefer observation which I think is reasonable. If she were to need any sort of intervention, would recommend transfer to [place] with her primary oncologic team as this would be a very large surgical undertaking. I can see her in clinic in follow-up to ensure she is doing well. Urology to sign off. History of Present Illness Reason for Consultation: Concern for colovesical fistula Attending Physician: Kirti Díaz DO History of Present Illness This is a 62-year-old female who was admitted to [facility] the evening of 05/29/2023 secondary to a near syncopal episode. Patient says that she became dizzy and felt as though she was going to pass out while she was at work yesterday. She said that she was able to sit down and did not fall or injure herself. She specifically denied any chest pain or palpitations. She also denied any shortness of breath. Because of this symptom the patient was prompted by her son to seek medical attention. The patient does report that she has had several days of a thick brown vaginal discharge. She also notes that for approximately 1 month she has had urinary symptoms with some intermittent dysuria as well as pneumaturia and passing cloudy purulent appearing urine. As the symptoms have been ongoing for approximately 1 month she did seek care with her oncologist who placed the patient on a 3-day course of Bactrim. She was also placed on a course of Macrobid by her outpatient supervisor inventory merchandising. The patient denies any back or flank pain. She denies any abdominal pain. She denies any fevers, shakes, or chills. No nausea or vomiting have been reported. It is nowhere the mention the patient has multiple abdominal surgeries as she has a history of mucinous adenocarcinoma of her appendix requiring a extended right hemicolectomy and appendectomy. The patient has also since had a laparoscopy with lysis of adhesions and tumor debulking with instillation of intraperitoneal chemotherapy. Patient currently follows with hematology/oncology locally and is currently undergoing chemotherapy. She notes that her next dose of chemotherapy is due next week. Patient was ultimately admitted due to her near syncopal episode. Due to her urinary symptoms there is concern the patient may have either a colovaginal or colovesical fistula. Patient was seen by FURNACE MECHANIC earlier today who noted it is quite difficult to diagnose [place] vaginal fistula. They did recommend obtaining a urology consultation secondary to the concern for a colovesical fistula. Since arrival to [facility] this admission the patient has had labs and imaging which independent reviewed. Chest x-ray showed no evidence of pneumonia. A CT scan of the head showed no evidence of acute stroke, hemorrhage, or mass effect. CT scan of the abdomen pelvis showed the patient had a right lower quadrant ostomy with no parastomal hernias. There is thickening of the urinary bladder noted which was felt to contain air concerning for a urinary tract infection. Patient was noted to have calcified splenic and hepatic lesions with metastatic disease unable to be excluded. Labs include a CBC her white blood cell count and platelet count were normal. At time of admission patient's hemoglobin was noted to be 6.8. Today it is 8.0. Chemistry profile showed sodium was 135 with a normal potassium. Her BUN and creatinine are 58 and 3.0. Patient did have an elevation of her bilirubin at 2.9 but noted elevation of her transaminases. Her alkaline phosphatase was 336 which was elevated. Urinalysis did show turbid urine. This was negative for nitrites but showed 3+ leukocyte esterase and greater than 30 white blood cells per high- power field. There is no yeast on this study but the patient did have 3+ bacteria. At the time of my interview the patient was resting comfortably in bed and she was in no distress Allergies Allergy/AdvReac Type Severity Reaction Status Date / Time pineapple Allergy Severe anaphylaxis Verified 05/29/23 21:42 cantaloupe Allergy Intermediate Hives Verified 05/29/23 21:42 [place] And Derivatives Allergy Intermediate hives Verified 05/29/23 21:42 clarithromycin Allergy Intermediate hives Verified 05/29/23 21:42 naproxen Allergy Intermediate hives Verified 05/29/23 21:42 Penicillins Allergy Intermediate hives Verified 05/29/23 21:42 tomato Allergy Intermediate hives, Verified 05/29/23 21:42 throat tightness latex Allergy Mild rash Verified 05/29/23 21:42 lemon Allergy Verified 05/30/23 12:43 lemon oil Allergy Verified 05/30/23 12:43 [place] Allergy Verified 05/30/23 13:03 orange Allergy Verified 05/30/23 12:43 orange (food color) Allergy Verified 05/30/23 12:43 orange flavor Allergy Verified 05/30/23 12:43 orange juice Allergy Verified 05/30/23 12:43 Home Medications Medication Instructions Recorded Confirmed Type brimonidine 0.1 % eye drops 1 drp OPB TID 05/12/19 05/29/23 History (Alphagan P) cholecalciferol (vitamin D3) 50 2,000 unit PO QAM 05/12/19 05/29/23 History mcg (2,000 unit) capsule (Vitamin D3) latanoprost 0.005 % eye drops 1 drp OPB HS 05/12/19 05/29/23 History (Xalatan) multivitamin 1 tab PO QAM 05/12/19 05/29/23 History ondansetron HCl 8 mg tablet 8 mg PO Q8H PRN Nausea 12/18/20 05/29/23 History prochlorperazine maleate 10 mg 10 mg PO Q6 PRN Nausea 12/18/20 05/29/23 History tablet allopurinol 100 mg tablet 200 mg PO DAILY 02/17/23 05/29/23 History potassium chloride 10 mEq 10 meq PO DAILY 02/17/23 05/29/23 History capsule,extended release Patient History Medical History Acute hypokalemia Acute kidney injury superimposed on CKD Anemia chronic, baseline hgb 9-11 range per chart review Borderline diabetes diet controlled Chronic ITP (idiopathic thrombocytopenia) platelet WNL on 06/01/20 labs High cholesterol Hyponatremia Mucinous adenocarcinoma of appendix (~03/2013) 2013 Pancreatitis post-op (2014) 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, chemo currently Surgical History Encounter for insertion of venous access port 2012 (subsequent removal) History of laparotomy USO + salipngectomy Hx laparoscopic cholecystectomy 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 Family History Other Diabetes Heart disease Hypertension Stroke Social History Smoking Status: Never smoker Second Hand Exposure: No; Do You Dip or Chew Tobacco: No; Tobacco Cessation Education Requested by Patient: No Hx Alcohol Use: No Hx Substance Use: No Preferred Language: Azeri Communication Ability: Effective Shelter Supervisor Required: No Beliefs That Will Affect Care: None marital status: Current Living Situation: Family Current Living Situation Comment: lives with son Other Information That Helps Us Care for You: No Feels Safe at Home: Yes Safety Concerns: Feels Safe At This Time Assistive Devices: None Review of Systems Constitutional: no fever and no chills Ear, Nose, Mouth, Throat: no hearing loss Respiratory: no cough and no dyspnea Cardiovascular: no chest pain Gastrointestinal: no abdominal pain, no nausea and no vomiting Genitourinary: as per Subjective / HPI Musculoskeletal: no back pain Integumentary: no rash Neurologic: no localized weakness Physical Exam Constitutional: WD/WN, vitals as above Eyes: no conjunctival abnormality ENMT: Ears: no hearing impairment Mouth: no oropharynx abnormality Neck: trachea midline Respiratory: normal respiratory effort; no respiratory distress and no labored breathing Cardiovascular: Rate/Rhythm: regular rate and regular rhythm Gastrointestinal (Abdomen): Abdomen is soft, nonrigid, and nondistended. There is no tenderness with palpation. Musculoskeletal: No calf tenderness Skin: no rashes Neurologic: moves all extremities Psychiatric: A+Ox3, euthymic affect Genitourinary: No CVA tenderness with percussion noted bilaterally Results & Data Vital Signs (Past 12 Hours) Vital Signs Temp Pulse Pulse Resp BP Pulse Ox O2 Del Method 05/30/23 19:00 36.9 C 88 18 95/55 L 99 Room Air 05/30/23 16:28 36.7 C 84 18 92/53 L 95 Room Air 05/30/23 16:13 81 05/30/23 12:25 37.0 C 78 18 88/47 L 99 Room Air PG Care Time/CCT Total # of Minutes Spent Total Time Spent with Patient: Total time spent is greater than 50% in coordination of care (as documented) at patient's floor/unit and/or counseling patient: Coding Level of Care Code 53521 IN/OBS CONSULT LVL 5,80M Diagnoses Enterovesical fistula N32.1
[2023-05-31] MEDS: ONDANSETRON INJ 2 MG/ML 2 ML VIAL IV PRN
[2023-05-31] MEDS: ENOXAPARIN INJ 30 MG/0.3 ML SYR SQ SCH (06:16)
--- NOTE | 2023-05-31 06:40 | Hospitalist Progress Note ---
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 Patient denies chest pain, palpitations or dizziness. Near Syncopal Episode + orthostatic vital signs, also found to be anemic mildly elevated troponin trended to peak - No further episodes and overall feeling better - continue to monitor on telemetry Normocytic Anemia Patient with chronic baseline anemia. - No signs of active bleeding. - Hbg 05/30 qAM= 6.8, blood was unable to be matched until mid day and repeat at that time was 8, so held off on transfusion. Hgb qAM 05/31 6.9, repeat at 1300 8.5 - Has not received any transfusions, as hemoglobin has increased in afternoon Should patient need a transfusion she does have multiple blood antibodies x3. She would need irradiated blood. 2 units cross matched. - IVF LR @ 80mL/hr for 2L UTI Patient reports thick, brown vaginal discharge as well as purulent appearing urine and pneumaturia likely UTI. Patient also complaining of vaginal discharge. 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 Does not want surgery at this time. - Will f/u with urology as an outpatient ABILIO Mild elevation of BUN and creatinine from baseline. Patient reports normal urine output -IV fluids with LR Avoid nephrotoxic agents Renal dosing are needed Downtrending from yesterday, Continue to trend Careful potassium repletion Hypokalemia - Repleted Continue Klor-Con 10 milliequivalents p.o. daily - Continue to trend ProphylaxisLovenox Codefull (2) UTI (urinary tract infection): (3) ABILIO (acute kidney injury): (4) Anemia: (5) Acute hypokalemia: Admission and Anticipated Discharge Date Admission Date: May 29, 2023 Supervising Physician Co-Signing Physician Notes I personally examined the patient and verified amin points of history and exam, discussed case, and agree with decision making and plan documented by Dr. Brown. Patient evaluated by urology for colovesicular fistula, patient not interested in surgery. Patient will complete PO antibiotic course for Klebsiella UTI. Hemoglobin improved today and did not require transfusion. Subjective Pt seen at bedside this morning. Son was also present. Stated that she spoke to both the urologist and congressional aide, does not want to move forward with any surgical interventions at this time. Denies lightheadedness/dizziness. Tolerating decent PO intake. Continues to have brown vaginal d/c. Review of Systems Review of Systems: As per above Physical Exam Physical Exam: Constitutional: well-appearing, no acute distress HEENT: NCAT, no conjunctival injection CV: regular rhythm, no murmur appreciated, extremities well-perfused, no LE edema, port in place Resp: CTABL, no wheezes/rales/rhonchi appreciated, no increased work of breathing GI: soft, nondistended, nontender, ostomy in place MSK: no gross deformities appreciated Skin: warm, dry, no rash appreciated Neuro: alert, oriented, no focal neurologic deficit appreciated Results & Data Results & Data Vital Signs (Past 12 Hours) Vital Signs Temp Pulse Pulse Resp BP BP Pulse Ox 05/31/23 04:00 36.9 C 78 18 93/52 L 99 05/30/23 22:00 75 05/30/23 23:20 37.1 C 81 18 95/54 L 99 05/30/23 22:48 05/30/23 21:31 90 05/30/23 19:00 36.9 C 88 18 95/55 L 99 O2 Del Method 05/31/23 04:00 Room Air 05/30/23 22:00 05/30/23 23:20 Room Air 05/30/23 22:48 Room Air 05/30/23 21:31 05/30/23 19:00 Room Air Resident Activity Tracking Resident Involvement: Resident Care Provided Care Provided: Adult Hospital Medicine
[2023-05-31 06:54] LABS: Hematocrit (blood only) 21.4 % (37.0-47.0); Hemoglobin 6.9 g/dl (12.0-16.0); Mean Corpuscular Hgb Conc 32.2 g/dL (32.0-36.0); Mean Platelet Volume 11.2 fL (9.4-12.4); Platelet Count 123 K/uL (130-400); RDW Coefficient of Variation 16.7 % (11.5-14.5); RDW Standard Deviation 52.7 fL (36.4-46.3); Red Blood Count 2.46 M/uL (4.20-5.40); White Blood Count 4.91 K/ul (4.8-10.8)
[2023-05-31 07:09] LABS: Albumin Globulin Ratio 0.7 (0.9-2); Albumin Level 2.4 gm/dl (3.4-5.0); BUN Creatinine Ratio 18.9 (10-20); Bilirubin,Total 2.8 mg/dl (0.2-1.0); Calcium 7.7 mg/dl (8.6-10.3); Creatinine Clr Calc Pharmacy 13.1 ml/min; Est GFR (African American) 18.1 ml/min; Est GFR (Non-African American) 15.7 ml/min; Globulin 3.3 gm/dl (2.5-4.0); Magnesium 1.7 mg/dl (1.7-2.4); Potassium 3.3 mmol/L (3.5-5.1); Total Protein 5.7 gm/dl (6.0-8.3)
[2023-05-31 07:21] LABS: Basophils # (auto) 0.02 K/uL (0.00-0.20); Basophils % (auto) 0.4 %; Eosinophils # (auto) 0.12 K/uL (0.00-0.50); Eosinophils % (auto) 2.4 %; Immature Granulocytes # (auto) 0.03 K/uL (0.01-0.20); Immature Granulocytes % (auto) 0.6 %; Lymphocytes # (auto) 0.75 K/uL (1.20-3.40); Lymphocytes % (auto) 15.3 %; Monocytes # (auto) 0.58 K/uL (0.11-0.59); Monocytes % (auto) 11.8 %; Neutrophils # (auto) 3.41 K/uL (1.40-6.50); Neutrophils % (auto) 69.5 %; Polychromasia 1+
[2023-05-31] MEDS ORDERED: POTASSIUM CHLORIDE CRTAB 20 MEQ TABCR PO ONE (07:35)
[2023-05-31] MEDS: allopurinoL 100 MG TAB PO SCH (09:22)
[2023-05-31] MEDS: POTASSIUM CHLORIDE 10 MEQ TABCR PO SCH (09:23)
[2023-05-31] MEDS: LACTATED RINGER'S 1,000 ML IV SCH ×2 (10:45→22:57)
[2023-05-31 13:14] LABS: Hematocrit (blood only) 27.5 % (37.0-47.0); Hemoglobin 8.5 g/dl (12.0-16.0)
[2023-05-31] MEDS: CEFDINIR 300 MG CAP PO SCH (17:49)
[2023-05-31] MEDS: ACETAMINOPHEN 325 MG TAB PO PRN (17:49)
[2023-05-31] MEDS: LATANOPROST 0.005% OP SOLN 2.5 ML BTL OPB SCH (20:44)
[2023-05-31] MEDS ORDERED: SULFAMETHOXAZOLE/TRIMETHOPRIM DS 800/160MG TAB PO SCH (21:00)
[2023-06-01] MEDS: ENOXAPARIN INJ 30 MG/0.3 ML SYR SQ SCH (05:51)
--- NOTE | 2023-06-01 06:57 | Hospitalist Progress Note ---
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 Patient denies chest pain, palpitations or dizziness. Near Syncopal Episode -+ orthostatic vital signs, also found to be anemic -mildly elevated troponin trended to peak -No further episodes and overall feeling better -continue to monitor on telemetry Normocytic Anemia Patient with chronic baseline anemia. -No signs of active bleeding. -Hbg 05/30 qAM= 6.8, blood was unable to be matched until mid day and repeat at that time was 8, so held off on transfusion. Hgb qAM 05/31 6.9, repeat at 1300 8.5 -Has not received any transfusions, as hemoglobin had increased. -Should patient need a transfusion she does have multiple blood antibodies x3. She would need irradiated blood. 2 units cross matched. -Additional IVF LR @ 80mL/hr UTI Patient reports thick, brown vaginal discharge as well as purulent appearing urine and pneumaturia likely UTI. Patient also complaining of vaginal discharge. 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 Does not want surgery at this time. -Will f/u with urology as an outpatient ABILIO Mild elevation of BUN and creatinine from baseline. Patient reports normal urine output -IV fluids with LR -Avoid nephrotoxic agents -Renal dosing are needed -Downtrending from yesterday, Continue to trend -Careful potassium repletion Hypokalemia -Repleted -Continue Klor-Con 10 milliequivalents p.o. daily -Continue to trend ProphylaxisLovenox Codefull (2) UTI (urinary tract infection): (3) ABILIO (acute kidney injury): (4) Anemia: (5) Acute hypokalemia: Admission and Anticipated Discharge Date Admission Date: May 29, 2023 Supervising Physician Co-Signing Physician Notes I personally examined the patient and verified all amin points of history and exam, discussed case, and agree with decision making with Dr Silverio. Feeling okay overall outside of bubbling and some mild but improved dysuria. Was able to get out of bed and walk to the bathroom with no problems. Drinks at least 2 L a day at home. Vitals noted, in general she is awake and alert pleasant no distress. HEENT normocephalic atraumatic mucous membranes moist. Breathing unlabored no accessory muscle use good effort. Skin shows no rashes no pallor or icterus. Neuro without focal deficits. Hypotension/ABILIO/UTI/chronic anemiafortunately does not appear to have any significant blood loss, I suspect anemia was positional meats delusional meets lab variation. Continue antibiotics. Continue IV fluidsit sounds like she drinks enough at homeI wonder if her hypotension was not just a secondary side effect of her chemotherapy. Not septic/septic shock. Otherwise as above. Subjective Patient was seen and examined at bedside. She notes that she had increased urinary incontinence overnight and felt that she had bowel contents in her vaginal discharge. She denies any current dizziness or lightheadedness while seated in bed. Notes that she is trying to drink at least 2L of liquids daily. Review of Systems Review of Systems: As per above Physical Exam Constitutional: + thin; no acute distress Eyes: + anicteric sclerae; no conjunctival abnormality ENMT: Ears: no external ear abnormality Nose: no external nose abnormality Moist mucous membranes Respiratory: normal respiratory effort, lungs clear to auscultation Cardiovascular: Rate/Rhythm: regular rate and regular rhythm Extremities: no edema Gastrointestinal (Abdomen): Abdomen soft, nontender Skin: no rashes, warm and dry Psychiatric: A+Ox3, euthymic affect Results & Data Results & Data Vital Signs (Past 12 Hours) Vital Signs Temp Pulse Pulse Resp BP Pulse Ox O2 Del Method 06/01/23 03:51 36.6 C 77 18 94/58 L 99 Room Air 05/31/23 22:00 79 06/01/23 00:00 36.9 C 75 18 102/54 L 99 Room Air 05/31/23 21:47 Room Air 05/31/23 21:00 78 05/31/23 19:00 36.9 C 81 18 105/64 93 Room Air Resident Activity Tracking Resident Involvement: Resident Care Provided Care Provided: Adult Hospital Medicine
[2023-06-01] MEDS: allopurinoL 100 MG TAB PO SCH (08:51)
[2023-06-01] MEDS: POTASSIUM CHLORIDE 10 MEQ TABCR PO SCH (08:51)
[2023-06-01 09:41] LABS: Basophils # (auto) 0.03 K/uL (0.00-0.20); Basophils % (auto) 0.6 %; Eosinophils # (auto) 0.14 K/uL (0.00-0.50); Eosinophils % (auto) 2.6 %; Hematocrit (blood only) 25.3 % (37.0-47.0); Immature Granulocytes # (auto) 0.04 K/uL (0.01-0.20); Immature Granulocytes % (auto) 0.7 %; Lymphocytes # (auto) 1.09 K/uL (1.20-3.40); Lymphocytes % (auto) 20.2 %; Mean Corpuscular Hemoglobin 27.6 pg (25.0-34.0); Mean Corpuscular Hgb Conc 31.6 g/dL (32.0-36.0); Mean Corpuscular Volume 87.2 fL (80.0-100.0); Mean Platelet Volume 11.6 fL (9.4-12.4); Monocytes # (auto) 0.62 K/uL (0.11-0.59); Monocytes % (auto) 11.5 %; Neutrophils # (auto) 3.47 K/uL (1.40-6.50); Neutrophils % (auto) 64.4 %; Platelet Count 155 K/uL (130-400); RDW Coefficient of Variation 16.5 % (11.5-14.5); RDW Standard Deviation 52.5 fL (36.4-46.3); White Blood Count 5.39 K/ul (4.8-10.8)
[2023-06-01 10:23] LABS: Albumin Globulin Ratio 0.7 (0.9-2); Albumin Level 2.8 gm/dl (3.4-5.0); BUN Creatinine Ratio 16.2 (10-20); Bilirubin,Total 3.7 mg/dl (0.2-1.0); Calcium 8.2 mg/dl (8.6-10.3); Creatinine Clr Calc Pharmacy 13.8 ml/min; Est GFR (African American) 19.4 ml/min; Est GFR (Non-African American) 16.7 ml/min; Globulin 3.8 gm/dl (2.5-4.0); Magnesium 1.6 mg/dl (1.7-2.4); Potassium 3.6 mmol/L (3.5-5.1); Total Protein 6.6 gm/dl (6.0-8.3)
[2023-06-01] MEDS: LACTATED RINGER'S 1,000 ML IV SCH (17:26)
[2023-06-01] MEDS: CEFDINIR 300 MG CAP PO SCH (17:27)
--- NOTE | 2023-06-01 18:05 | Billing Data ---
Date of Service June 01, 2023 Coding Level of Care Code 27650 SUB INP/OBS CARE MIN
[2023-06-01] MEDS: LATANOPROST 0.005% OP SOLN 2.5 ML BTL OPB SCH (19:55)
[2023-06-02] MEDS: ENOXAPARIN INJ 30 MG/0.3 ML SYR SQ SCH (04:20)
[2023-06-02] MEDS: ONDANSETRON INJ 2 MG/ML 2 ML VIAL IV PRN (04:21)
[2023-06-02] MEDS: LACTATED RINGER'S 1,000 ML IV SCH (04:21)
[2023-06-02 06:30] LABS: Hemoglobin 6.9 g/dl (12.0-16.0); Mean Corpuscular Hemoglobin 27.9 pg (25.0-34.0); Mean Corpuscular Hgb Conc 31.4 g/dL (32.0-36.0); Mean Corpuscular Volume 89.1 fL (80.0-100.0); Platelet Count 165 K/uL (130-400); RDW Coefficient of Variation 16.9 % (11.5-14.5); RDW Standard Deviation 54.5 fL (36.4-46.3); Red Blood Count 2.47 M/uL (4.20-5.40); White Blood Count 6.79 K/ul (4.8-10.8)
[2023-06-02 06:44] LABS: Basophils # (auto) 0.03 K/uL (0.00-0.20); Basophils % (auto) 0.4 %; Eosinophils # (auto) 0.12 K/uL (0.00-0.50); Eosinophils % (auto) 1.8 %; Immature Granulocytes # (auto) 0.06 K/uL (0.01-0.20); Immature Granulocytes % (auto) 0.9 %; Lymphocytes # (auto) 1.11 K/uL (1.20-3.40); Lymphocytes % (auto) 16.3 %; Monocytes # (auto) 0.79 K/uL (0.11-0.59); Monocytes % (auto) 11.6 %; Neutrophils # (auto) 4.68 K/uL (1.40-6.50); Polychromasia 1+
[2023-06-02 07:00] LABS: BUN Creatinine Ratio 16.6 (10-20); Calcium 7.7 mg/dl (8.6-10.3); Creatinine Clr Calc Pharmacy 16.7 ml/min; Est GFR (African American) 24.3 ml/min; Potassium 3.5 mmol/L (3.5-5.1)
--- NOTE | 2023-06-02 07:19 | Hospitalist Progress Note ---
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 Patient denies chest pain, palpitations or dizziness. Near Syncopal Episode -+ orthostatic vital signs, also found to be anemic -mildly elevated troponin trended to peak -No further episodes and overall feeling better, suspect her symptoms could be secondary to her chemotherapy treatments -continue to monitor on telemetry Possible Iliopsoas Abscess -Incidental finding on CT abdomen today (06/02) -General Surgery consulted -Recommend conservative management at this time Normocytic Anemia Patient with chronic baseline anemia. -No signs of active bleeding. -Hbg 05/30 qAM= 6.8, blood was unable to be matched until mid day and repeat at that time was 8, so held off on transfusion. Hgb qAM 05/31 6.9, repeat at 1300 8.5 -Repeat hgb this afternoon at 8.0 (06/02) -Has not received any transfusions, as hemoglobin had increased. -Should patient need a transfusion she does have multiple blood antibodies x3. She would need irradiated blood. 2 units cross matched. -Additional IVF LR @ 80mL/hr UTI Patient reports thick, brown vaginal discharge as well as purulent appearing urine and pneumaturia likely UTI. Patient also complaining of vaginal discharge. 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 Does not want surger y at this time. -Will f/u with urology as an outpatient ABILIO Mild elevation of BUN and creatinine from baseline. Patient reports normal urine output -IV fluids with LR -Avoid nephrotoxic agents -Renal dosing are needed -Downtrending from yesterday, Continue to trend -Careful potassium repletion Hypokalemia -Repleted -Continue Klor-Con 10 milliequivalents p.o. daily -Continue to trend ProphylaxisLovenox Codefull PT/OT consulted (2) UTI (urinary tract infection): (3) ABILIO (acute kidney injury): (4) Anemia: (5) Acute hypokalemia: Admission and Anticipated Discharge Date Admission Date: May 29, 2023 Supervising Physician Co-Signing Physician Notes I personally examined the patient and verified all amin points of history and exam, discussed case, and agree with decision making with Dr Silverio Feels okay. Had a little bit of vague GI upset last night, but nothing really pervasive. Getting around better. Less weak no real lightheadedness. CT results briefly discussed with patient, discussed with surgery who then promptly saw patient. Vitals noted, in general she is awake and alert pleasant no distress. HEENT normocephalic atraumatic mucous membranes moist. Breathing unlabored no accessory muscle use good effort. Skin shows no rashes no pallor or icterus. Neuro without focal deficits. Hypotension/ABILIO/UTI/chronic anemiafortunately does not appear to have any significant blood loss, I suspect anemia was positional meats delusional meets lab variation. Continue antibiotics. Continue IV fluidsit sounds like she drinks enough at homeI wonder if her hypotension was not just a secondary side effect of her chemotherapy. Not septic/septic shock. Otherwise as above. Abdominal abscess finding on CT incidentally noted, surprisingly asymptomatic, already on cefdinir for urinary tract infection which is probably helping suppressadd metronidazole. Agree with need for drainage, appreciate surgery input. Subjective Patient seen and examined at bedside. Notes that her stomach felt a bit "sour" last night, has improved today. Notes some red color in vaginal discharge but notes that she had eaten red jello prior to this. Denies dizziness/lightheadedness/chest pain/shortness of breath. Review of Systems Review of Systems: As per above Physical Exam Constitutional: + thin; no acute distress Eyes: + anicteric sclerae; no conjunctival abnormality ENMT: Ears: no external ear abnormality Nose: no external nose abnormality Respiratory: normal respiratory effort, lungs clear to auscultation Cardiovascular: Rate/Rhythm: regular rate and regular rhythm Extremities: no edema Gastrointestinal (Abdomen): Percussion/Palpation: abdomen soft; abdomen nontender Skin: no rashes, warm and dry Psychiatric: A+Ox3, euthymic affect Results & Data Results & Data Vital Signs (Past 12 Hours) Vital Signs Temp Pulse Pulse Resp BP BP Pulse Ox 06/02/23 04:58 37.3 C 84 20 99/58 L 98 06/02/23 00:12 37.3 C 97 H 18 119/70 100 06/01/23 22:00 88 06/01/23 21:13 06/01/23 20:00 91 H 06/01/23 20:00 37.6 C H 101 H 18 112/61 97 O2 Del Method 06/02/23 04:58 Room Air 06/02/23 00:12 Room Air 06/01/23 22:00 06/01/23 21:13 Room Air 06/01/23 20:00 06/01/23 20:00 Room Air Diagnostic Findings Abdomen/Pelvis CT 06/02/23 10:[address] WITHOUT CONTRAST CT DOSE: HISTORY: Appendiceal adenocarcinoma TECHNIQUE: Multiaxial CT images of the abdomen and pelvis were performed without contrast. A dose lowering technique was utilized adhering to the principles of ALARA. COMPARISON STUDY: Abdomen and pelvis CT 05/29/2023. FINDINGS: No pneumoperitoneum. No pneumatosis. No suspicious lytic or blastic osseous lesions. There is an old mild superior endplate compression deformity at L4, unchanged. Multiple hepatic and splenic capsular metastatic implants are again noted. These are partially calcified. Dominant lesion at the left hepatic lobe near the falciform ligament measures 5.4 cm. There are few additional calcified peritoneal implants within the upper abdomen which remain unchanged. The unenhanced pancreas and adrenal glands unremarkable. The spleen remains mildly enlarged. Thickening of the gastric antrum persists. No renal stones or hydronephrosis. Calcified plaque within the normal caliber abdominal aorta. Severe left-sided intrahepatic bile duct dilatation remains unchanged. 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 There is a gas and fluid collection within the left deep pelvis which appears to connect to the rectal stump and extends into the left iliopsoas muscle. This is best seen on images 178 through 245 within the left iliopsoas muscle. This gas and fluid collection partially surrounds the left iliac vessels and measures approximately 8.2 x 4.5 cm best seen on image 230. Therefore, this is consistent with an abscess likely from a leak at the suture line of the rectal stump best seen on image 225. There is mild inflammatory change adjacent to the left iliopsoas muscle. Bladder wall thickening and gas within the bladder lumen is again noted. This could be due to prior catheterization. An underlying fistula could also have a similar appearance. Recommend correlation with urinalysis. Dilated loop of small bowel within the right side of the abdomen persist and likely corresponds to prior anastomosis. No evidence for a bowel obstruction. IMPRESSION: 1. There is an 8.2 x 4.5 cm gas and fluid collection within the left deep pelvis which extends into the left iliopsoas muscle consistent with an abscess. This likely originates from the rectal stump and is consistent with suture breakdown/leak at the rectal stump. 2. Gas within the bladder lumen with persistent thickening of the bladder wall. This could be due to prior catheterization. An underlying fistula be difficult to exclude. 3. No significant change in the numerous metastatic implants compared to the prior study. 4. Stable left intrahepatic bile duct dilatation. 5. Postoperative changes as described above. 6. Persistent thickening of the gastric antrum. 7. Additional findings as described above. ACT 112: Negative or not required by law. Electronically signed by: Jame Sotomayor M.D. 06/02/2023 1:[address] 06/02/23 10:30 CT chest diagnostic wo con CT DOSE: HISTORY: Appendiceal adenocarcinoma TECHNIQUE: Multiaxial CT images of the chest were performed without contrast. A dose lowering technique was utilized adhering to the principles of ALARA. COMPARISON: Chest CT 01/29/2023. FINDINGS: Abdominal metastases will be reported on the same day abdomen and pelvis CT. No suspicious lytic or blastic osseous lesions. A right jugular Port-A-Cath terminates in the SVC. Decreased attenuation within the blood pool consistent with underlying anemia. No mediastinal, hilar, or axillary lymphadenopathy. The heart is top normal in size. Moderate coronary artery calcifications are noted. Mild calcified plaque within the normal caliber thoracic aorta. Normal esophagus. No pneumothorax. The central airways are patent. No new or suspicious pulmonary nodules. No focal lung consolidations to suggest a pneumonia. No evidence for pulmonary edema. A few small bibasilar linear densities favor subsegmental atelectasis or scarring. IMPRESSION: 1. No evidence for metastatic disease within the chest. 2. The abdominal metastases will be reported on the same day abdomen and pelvis CT. ACT 112: Negative or not required by law. Electronically signed by: Jame Sotomayor M.D. 06/02/2023 12:56 PM Resident Activity Tracking Resident Involvement: Resident Care Provided Care Provided: Adult [facility] Medicine
[2023-06-02] MEDS: POTASSIUM CHLORIDE 10 MEQ TABCR PO SCH (07:41)
[2023-06-02] MEDS: allopurinoL 100 MG TAB PO SCH (07:41)
[2023-06-02] MEDS ORDERED: BUTT PASTE (ZINC OXIDE 16%) 171 APPLN/57 GM JAR EXT PRN (10:27)
--- NOTE | 2023-06-02 12:57 | CT Scan Report ---
CT chest diagnostic wo con CT DOSE: HISTORY: Appendiceal adenocarcinoma TECHNIQUE: Multiaxial CT images of the chest were performed without contrast. A dose lowering techni que was utilized adhering to the principles of ALARA. COMPARISON: Chest CT 01/29/2023. FINDINGS: Abdominal metastases will be reported on the same day abdomen and pelvis CT. No suspicious lytic or blastic osseous lesions. A right jugular Port-A-Cath terminates in the SVC. Decreased attenu ation within the blood pool consistent with underlying anemia. No mediastinal, hilar, or axillary lym phadenopathy. The heart is top normal in size. Moderate coronary artery calcifications are noted. Mil d calcified plaque within the normal caliber thoracic aorta. Normal esophagus. No pneumothorax. The c entral airways are patent. No new or suspicious pulmonary nodules. No focal lung consolidations to willis ggest a pneumonia. No evidence for pulmonary edema. A few small bibasilar linear densities favor subs egmental atelectasis or scarring. IMPRESSION: 1. No evidence for metastatic disease within the chest. 2. The abdominal metastases will be reported on the same day abdomen and pelvis CT. ACT 112: Negative or not required by law. Electronically signed by: Jame Sotomayor M.D. 06/02/2023 12:56 PM
--- NOTE | 2023-06-02 13:18 | CT Scan Report ---
ABDOMEN AND PELVIS CT WITHOUT CONTRAST CT DOSE: HISTORY: Appendiceal adenocarcinoma TECHNIQUE: Multiaxial CT images of the abdomen and pelvis were performed without contrast. A dose lo wering technique was utilized adhering to the principles of ALARA. COMPARISON STUDY: Abdomen and pelvis CT 05/29/2023. FINDINGS: No pneumoperitoneum. No pneumatosis. No suspicious lytic or blastic osseous lesions. There is an old mild superior endplate compression deformity at L4, unchanged. Multiple hepatic and splenic capsular metastatic implants are again noted. These are partially calcified. Dominant lesion at the left hepatic lobe near the falciform ligament measures 5.4 cm. There are few additional calcified per itoneal implants within the upper abdomen which remain unchanged. The unenhanced pancreas and adrenal glands unremarkable. The spleen remains mildly enlarged. Thickening of the gastric antrum persists. No renal stones or hydronephrosis. Calcified plaque within the normal caliber abdominal aorta. Severe left-sided intrahepatic bile duct dilatation remains unchanged. 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 There is a gas and fluid collection within the lef t deep pelvis which appears to connect to the rectal stump and extends into the left iliopsoas muscle . This is best seen on images 178 through 245 within the left iliopsoas muscle. This gas and fluid co llection partially surrounds the left iliac vessels and measures approximately 8.2 x 4.5 cm best seen on image 230. Therefore, this is consistent with an abscess likely from a leak at the suture line of the rectal stump best seen on image 225. There is mild inflammatory change adjacent to the left ilio psoas muscle. Bladder wall thickening and gas within the bladder lumen is again noted. This could be due to prior catheterization. An underlying fistula could also have a similar appearance. Recommend c orrelation with urinalysis. Dilated loop of small bowel within the right side of the abdomen persist and likely corresponds to prior anastomosis. No evidence for a bowel obstruction. IMPRESSION: 1. There is an 8.2 x 4.5 cm gas and fluid collection within the left deep pelvis which extends into t he left iliopsoas muscle consistent with an abscess. This likely originates from the rectal stump and is consistent with suture breakdown/leak at the rectal stump. 2. Gas within the bladder lumen with persistent thickening of the bladder wall. This could be due to prior catheterization. An underlying fistula be difficult to exclude. 3. No significant change in the numerous metastatic implants compared to the prior study. 4. Stable left intrahepatic bile duct dilatation. 5. Postoperative changes as described above. 6. Persistent thickening of the gastric antrum. 7. Additional findings as described above. ACT 112: Negative or not required by law. Electronically signed by: Jame Sotomayor M.D. 06/02/2023 1:17 PM
--- NOTE | 2023-06-02 14:34 | Surgery Consultation ---
Date of Consultation June 02, 2023 Assessment & Plan (1) Intra-abdominal abscess: Patient is a 62 year old female with PMH of UTI, ABILIO, diabetes, anemia, HLD, Mucinous adenocarcinoma of appendix, that presented to the [facility] ER on 05/29/23 with complaint of near syncope. patient was found to be anemic, hypokalemia, + UTI. Patient was admitted to the hospital for monitoring and treatment. SUBSTATION SUPERVISOR saw patient for concerns of a possible enterovesical fistula. Patient underwent an Abdominal/Pelvis CT scan today because she was missing her O/P scan. General surgery was consulted because imaging shows : There is an 8.2 x 4.5 cm gas and fluid collection within the left deep pelvis which extends into the left iliopsoas muscle consistent with an abscess. This likely originates from the rectal stump and is consistent with suture breakdown/leak at the rectal stump. This was not present on the previous scan on 05/29/23. Patient reports previous right colectomy with functioning ostomy, appendectomy, aport placement, cholecystectomy, bilateral salpingo-oophorectomy, intraperitoneal chemotherapy. [place] [id number] [facility] [place] Patient is currently receiving chemotherapy via her access port weekly. Currently on Lovenox 30mg Q24h. Patient denies N/V, abdominal pain, fever/ chills, night sweats, change in ostomy output. Plan Conservative management WBC 6.79, Total bilirubin 3.7, AST 58, Alkaline Phosphatase 384 elevation could be due to her underlying malignancy IR was considered however we do not have the capabilities at this facility until next week She may have abscess drained as an O/P or if she is still here next week this could be considered If the patient status should turn, she may need transferred to a tertiary care center with IR ability Will continue to monitor Supervising Physician Co-Signing Physician Notes This case has been discussed with the surgical PA. I agree with this plan. History of Present Illness Reason for Consultation: Abdominal Abscess Requesting Physician: Dr. Encarnacion Attending Physician: Alfonso Encarnacion, History of Present Illness Patient is a 62 year old female with PMH of UTI, ABILIO, diabetes, anemia, HLD, Mucinous adenocarcinoma of appendix, that presented to the [facility] ER on 05/29/23 with complaint of near syncope. patient was found to be anemic, hypokalemia, + UTI. Patient was admitted to the hospital for monitoring and treatment. SUBSTATION SUPERVISOR saw patient for concerns of a possible enterovesical fistula. Patient underwent an Abdominal/Pelvis CT scan today because she was missing her O/P scan. General surgery was consulted because imaging shows : There is an 8.2 x 4.5 cm gas and fluid collection within the left deep pelvis which extends into the left iliopsoas muscle consistent with an abscess. This likely originates from the rectal stump and is consistent with suture breakdown/leak at the rectal stump. This was not present on the previous scan on 05/29/23. Patient reports previous right colectomy with functioning ostomy, appendectomy, aport placement, cholecystectomy, bilateral salpingo-oophorectomy, intraperitoneal chemotherapy. [place] [id number] [facility] [place] Patient is currently receiving chemotherapy via her access port weekly. Patient is on lovenox Q24h. Allergies Allergy/AdvReac Type Severity Reaction Status Date / Time pineapple Allergy Severe anaphylaxis Verified 05/29/23 21:42 cantaloupe Allergy Intermediate Hives Verified 05/29/23 21:42 Churchill And Derivatives Allergy Intermediate hives Verified 05/29/23 21:42 clarithromycin Allergy Intermediate hives Verified 05/29/23 21:42 naproxen Allergy Intermediate hives Verified 05/29/23 21:42 Penicillins Allergy Intermediate hives Verified 05/29/23 21:42 tomato Allergy Intermediate hives, Verified 05/29/23 21:42 throat tightness latex Allergy Mild rash Verified 05/29/23 21:42 lemon Allergy Verified 05/30/23 12:43 lemon oil Allergy Verified 05/30/23 12:43 salamatof Allergy Verified 05/30/23 13:03 orange Allergy Verified 05/30/23 12:43 orange (food color) Allergy Verified 05/30/23 12:43 orange flavor Allergy Verified 05/30/23 12:43 orange juice Allergy Verified 05/30/23 12:43 Home Medications Medication Instructions Recorded Confirmed Type brimonidine 0.1 % eye drops 1 drp OPB TID 05/12/19 05/29/23 History (Alphagan P) cholecalciferol (vitamin D3) 50 2,000 unit PO QAM 05/12/19 05/29/23 History mcg (2,000 unit) capsule (Vitamin D3) latanoprost 0.005 % eye drops 1 drp OPB HS 05/12/19 05/29/23 History (Xalatan) multivitamin 1 tab PO QAM 05/12/19 05/29/23 History ondansetron HCl 8 mg tablet 8 mg PO Q8H PRN Nausea 12/18/20 05/29/23 History prochlorperazine maleate 10 mg 10 mg PO Q6 PRN Nausea 12/18/20 05/29/23 History tablet allopurinol 100 mg tablet 200 mg PO DAILY 02/17/23 05/29/23 History potassium chloride 10 mEq 10 meq PO DAILY 02/17/23 05/29/23 History capsule,extended release Patient History Medical History Acute hypokalemia Acute kidney injury superimposed on CKD Anemia chronic, baseline hgb 9-11 range per chart review Borderline diabetes diet controlled Chronic ITP (idiopathic thrombocytopenia) platelet WNL on 06/01/20 labs High cholesterol Hyponatremia Mucinous adenocarcinoma of appendix (~03/2013) 2013 Pancreatitis post-op (2014) 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, chemo currently Surgical History Encounter for insertion of venous access port 2012 (subsequent removal) History of laparotomy USO + salipngectomy Hx laparoscopic cholecystectomy 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 Family History Other Diabetes Heart disease Hypertension Stroke Social History Smoking Status: Never smoker Second Hand Exposure: No; Do You Dip or Chew Tobacco: No; Hx Alcohol Use: No Hx Substance Use: No Preferred Language: Hungarian Communication Ability: Effective Chronometer Tester Required: No Beliefs That Will Affect Care: None marital status: Current Living Situation: Family Current Living Situation Comment: lives with son Feels Safe at Home: Yes Assistive Devices: None Review of Systems Constitutional: no fever, no chills and no sweats Cardiovascular: no chest pain Gastrointestinal: + belching; no abdominal pain, no nausea, no vomiting and no change in stools Genitourinary: + vaginal discharge Physical Exam Physical Exam: alert oriented pleasant Constitutional: cooperative and comfortable; no acute distress Respiratory: normal respiratory effort and able to speak in complete sentences; no respiratory distress Cardiovascular: Rate/Rhythm: regular rate hypotensive 88/49 Chest (Breasts): Chest: + vascular access device or port Additional Comments: right side Gastrointestinal (Abdomen): Inspection/Auscultation: + abdominal surgical scar; abdomen not distended Percussion/Palpation: + abdomen tender (reports tenderness in RUQ with palpation) and abdomen soft; no guarding and abdomen not firm has colostomy bag draining stool Results & Data Vital Signs (Past 12 Hours) Vital Signs Temp Pulse Pulse Resp BP BP Pulse Ox 06/02/23 12:23 98.4 F 76 18 88/49 L 91 06/02/23 08:01 98.6 F 78 18 91/46 L 98 06/02/23 07:29 86 06/02/23 04:58 99.1 F 84 20 99/58 L 98 O2 Del Method 06/02/23 12:23 Room Air 06/02/23 08:01 Room Air 06/02/23 07:29 06/02/23 04:58 Room Air Diagnostic Findings [place], [place] [phone] CT Scan Report Patient:STANISLAV DASH Admit Date:05/29/23 MR#:[id number] Address1:[address] Acct ID:[id number] Address2: Date:1960 [facility] Zip:[place] [address] Age:62 Location:2N Sex:F Room/Bed:[facility] Att Phy:Alfonso Encarnacion D.O. Diagnosis:UTI, NEAR SYNCOPE Aria Phy:Sonal Chisholm M.D. Service Date:06/02/23 Fam Phy: Interpreting Phy:Jame Sotomayor MDAdmit Phy:Lissa Waldrop D.O. Ordering Phy:Heather Silverio DO cc: ~ ABDOMEN AND PELVIS CT WITHOUT CONTRAST CT DOSE: HISTORY: Appendiceal adenocarcinoma TECHNIQUE: Multiaxial CT images of the abdomen and pelvis were performed without contrast. A dose lowering technique was utilized adhering to the principles of ALARA. COMPARISON STUDY: Abdomen and pelvis CT 05/29/2023. FINDINGS: No pneumoperitoneum. No pneumatosis. No suspicious lytic or blastic osseous lesions. There is an old mild superior endplate compression deformity at L4, unchanged. Multiple hepatic and splenic capsular metastatic implants are again noted. These are partially calcified. Dominant lesion at the left hepatic lobe near the falciform ligament measures 5.4 cm. There are few additional calcified peritoneal implants within the upper abdomen which remain unchanged. The unenhanced pancreas and adrenal glands unremarkable. The spleen remains mildly enlarged. Thickening of the gastric antrum persists. No renal stones or hydronephrosis. Calcified plaque within the normal caliber abdominal aorta. Severe left-sided intrahepatic bile duct dilatation remains unchanged. 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 There is a gas and fluid collection within the left deep pelvis which appears to connect to the rectal stump and extends into the left iliopsoas muscle. This is best seen on images 178 through 245 within the left iliopsoas muscle. This gas and fluid collection partially surrounds the left iliac vessels and measures approximately 8.2 x 4.5 cm best seen on image 230. Therefore, this is consistent with an abscess likely from a leak at the suture line of the rectal stump best seen on image 225. There is mild inflammatory change adjacent to the left iliopsoas muscle. Bladder wall thickening and gas within the bladder lumen is again noted. This could be due to prior catheterization. An underlying fistula could also have a similar appearance. Recommend correlation with urinalysis. Dilated loop of small bowel within the right side of the abdomen persist and likely corresponds to prior anastomosis. No evidence for a bowel obstruction. IMPRESSION: 1. There is an 8.2 x 4.5 cm gas and fluid collection within the left deep pelvis which extends into the left iliopsoas muscle consistent with an abscess. This likely originates from the rectal stump and is consistent with suture breakdown/leak at the rectal stump. 2. Gas within the bladder lumen with persistent thickening of the bladder wall. This could be due to prior catheterization. An underlying fistula be difficult to exclude. 3. No significant change in the numerous metastatic implants compared to the aria or study. 4. Stable left intrahepatic bile duct dilatation. 5. Postoperative changes as described above. 6. Persistent thickening of the gastric antrum. 7. Additional findings as described above. ACT 112: Negative or not required by law. Electronically signed by: Jame Sotomayor M.D. 06/02/2023 1:17 PM Dictated:06/02/23 1256 Transcribed: 06/02/23 1256 PG Care Time/CCT Total # of Minutes Spent Total Time Spent with Patient: Total time spent is greater than 50% in coordination of care (as documented) at patient's floor/unit and/or counseling patient: Coding Level of Care Code 65169 IN/OBS CONSULT LVL 2,35M Diagnoses Intra-abdominal abscess K65.1
[2023-06-02 15:27] LABS: Hematocrit (blood only) 25.9 % (37.0-47.0); Hemoglobin 8.1 g/dl (12.0-16.0)
[2023-06-02] MEDS: CEFDINIR 300 MG CAP PO SCH (17:00)
--- NOTE | 2023-06-02 18:16 | Billing Data ---
Date of Service June 02, 2023 Coding Level of Care Code 19829 SUB INP/OBS CARE MIN
[2023-06-02] MEDS: LATANOPROST 0.005% OP SOLN 2.5 ML BTL OPB SCH (21:23)
[2023-06-02] MEDS: metroNIDAZOLE 500 MG TAB PO SCH (21:23)
[2023-06-03] MEDS ORDERED: SODIUM CHLORIDE 0.9% 1,000 ML IV ONE (03:49)
[2023-06-03] MEDS: ENOXAPARIN INJ 30 MG/0.3 ML SYR SQ SCH (05:30)
[2023-06-03 07:00] LABS: Hematocrit (blood only) 21.2 % (37.0-47.0); Hemoglobin 6.6 g/dl (12.0-16.0); Mean Corpuscular Hemoglobin 27.7 pg (25.0-34.0); Mean Corpuscular Hgb Conc 31.1 g/dL (32.0-36.0); Mean Corpuscular Volume 89.1 fL (80.0-100.0); Mean Platelet Volume 13.1 fL (9.4-12.4); Platelet Count 171 K/uL (130-400); RDW Coefficient of Variation 16.7 % (11.5-14.5); RDW Standard Deviation 53.8 fL (36.4-46.3); Red Blood Count 2.38 M/uL (4.20-5.40); White Blood Count 5.91 K/ul (4.8-10.8)
[2023-06-03 07:11] LABS: Basophils # (auto) 0.02 K/uL (0.00-0.20); Basophils % (auto) 0.3 %; Eosinophils # (auto) 0.13 K/uL (0.00-0.50); Eosinophils % (auto) 2.2 %; Immature Granulocytes # (auto) 0.06 K/uL (0.01-0.20); Lymphocytes # (auto) 1.08 K/uL (1.20-3.40); Lymphocytes % (auto) 18.3 %; Monocytes % (auto) 10.2 %; Neutrophils # (auto) 4.02 K/uL (1.40-6.50); Polychromasia 1+; Tear Drop Cells 1+
[2023-06-03 07:16] LABS: BUN Creatinine Ratio 15.1 (10-20); Calcium 7.3 mg/dl (8.6-10.3); Creatinine Clr Calc Pharmacy 19.8 ml/min; Est GFR (African American) 26.4 ml/min; Est GFR (Non-African American) 22.8 ml/min; Potassium 3.5 mmol/L (3.5-5.1)
--- NOTE | 2023-06-03 07:58 | Hospitalist Progress Note ---
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 Patient denies chest pain, palpitations or dizziness. Near Syncopal Episode -+ orthostatic vital signs, also found to be anemic -mildly elevated troponin trended to peak -No further episodes and overall feeling better, suspect her symptoms could be secondary to her chemotherapy treatments -continue to monitor on telemetry Possible Iliopsoas Abscess -Incidental finding on CT abdomen 06/02 -General Surgery consulted -Recommend conservative management at this time while we are awaiting IR next week -Discussed with patient and her son option to consider transfer to tertiary hospital, they would prefer to stay and wait for IR Normocytic Anemia -Patient with chronic baseline anemia. -No signs of active bleeding. -Hbg 05/30 qAM= 6.8, blood was unable to be matched until mid day and repeat at that time was 8, so held off on transfusion. Fluctuation of hgb throughout the day has continued -Has not received any transfusions, as hemoglobin had increased. -Should patient need a transfusion she does have multiple blood antibodies x3. She would need irradiated blood. 2 units cross matched. -Anemia with intermittent variations of >1 point of hemoglobin. -Suspect that this is multifactorial, but consult placed to her broadcast operations technician/oncologist (Dr. Fierro). -Will plan for repeat bloodwork in afternoons UTI Patient reports thick, brown vaginal discharge as well as purulent appearing urine and pneumaturia likely UTI. Patient also complaining of vaginal discharge. 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 Does not want surgery at this time. -Will f/u with urology as an outpatient ABILIO Mild elevation of BUN and creatinine from baseline. Patient reports normal urine output -IV fluids with LR -Avoid nephrotoxic agents -Renal dosing are needed -Downtrending since admission Hypokalemia -Repleted -Continue Klor-Con 10 milliequivalents p.o. daily -Continue to trend ProphylaxisLovenox Codefull PT/OT consulted (2) UTI (urinary tract infection): (3) ABILIO (acute kidney injury): (4) Anemia: (5) Acute hypokalemia: Admission and Anticipated Discharge Date Admission Date: May 29, 2023 Supervising Physician Co-Signing Physician Notes I personally examined the patient and verified all amin points of history and exam, discussed case, and agree with decision making with Dr Silverio feels well. No new complaints. No abdominal pain. Son at the bedsideupdated to the best my ability. Discussed with hematology/oncology, input greatly appreciated. Vitals noted, in general she is awake and alert pleasant no distress. HEENT normocephalic atraumatic mucous membranes moist. Breathing unlabored no accessory muscle use good effort. Skin shows no rashes no pallor or icterus. Neuro without focal deficits. Abdomen soft nondistended nontender no guarding rebound or rigidity. Hypotension/ABILIO/UTI/chronic anemiafortunately does not appear to have any significant blood loss, I suspect anemia was positional meats dilutional meets lab variation. Continue antibiotics. Continue IV fluidsit sounds like she drinks enough at homeI wonder if her hypotension was not just a secondary side effect of her chemotherapy. Not septic/septic shock. Otherwise as above. Abdominal abscess finding on CT incidentally noted, surprisingly asymptomatic, Continue cefdinir/Flagyl. After discussion with patient and songiven that this is a new finding, even though she is asymptomatic, its very worrisome to have her go home without being sure that things are stable (especially given that it was not present just 4 days prior)and so we really need to follow her on antibiotics for several days, then repeat CT, and then possibly set things up for outpatientand given that IR will be available again at the beginning of next week, largely would be the same timeframe to have IR see her here. We also discussed possibility of transfer for immediate IR availability, but given that she is feeling okay and does not feel that there is a crisis emergency, she would prefer to avoid transfer at this timewhich I agree with. Subjective Patient seen and examined at bedside. No acute events overnight. Continues to deny dizziness/lightheadedness or abdominal pain. Was eating breakfast at time of encounter. Review of Systems Review of Systems: As per above Physical Exam Constitutional: + thin; no acute distress Eyes: + anicteric sclerae; no conjunctival abnormality ENMT: Ears: no external ear abnormality Nose: no external nose abnormality Respiratory: normal respiratory effort, lungs clear to auscultation Cardiovascular: Rate/Rhythm: regular rate and regular rhythm Extremities: no edema Gastrointestinal (Abdomen): Percussion/Palpation: abdomen soft; abdomen nontender Skin: no rashes, warm and dry Psychiatric: A+Ox3, euthymic affect Results & Data Results & Data Vital Signs (Past 12 Hours) Vital Signs Temp Pulse Pulse Resp BP BP Pulse Ox 06/03/23 07:07 89 06/03/23 05:30 95/56 L 06/03/23 04:00 37.3 C 95 H 18 89/52 L 89/51 L 99 06/03/23 00:30 95 H 06/03/23 00:32 06/02/23 23:55 37.6 C H 97 H 20 104/62 99 O2 Del Method 06/03/23 07:07 06/03/23 05:30 06/03/23 04:00 Room Air 06/03/23 00:30 06/03/23 00:32 Room Air 06/02/23 23:55 Room Air Resident Activity Tracking Resident Involvement: Resident Care Provided Care Provided: Adult Hospital Medicine
[2023-06-03] MEDS: allopurinoL 100 MG TAB PO SCH (08:08)
[2023-06-03] MEDS: metroNIDAZOLE 500 MG TAB PO SCH ×3 (08:08→20:32)
[2023-06-03] MEDS: POTASSIUM CHLORIDE 10 MEQ TABCR PO SCH (08:08)
[2023-06-03] MEDS ORDERED: LACTATED RINGER'S 1,000 ML IV SCH (08:30)
--- NOTE | 2023-06-03 08:31 | Surgery Progress Note ---
Date of Service June 03, 2023 Assessment & Plan (1) Intra-abdominal abscess: Plan: Patient denies any complaints this AM -No pain/n/v -Labs do reveal WBC 5.9, Hbg drop to 6.6 (8.1). She is afebrile. BPs are borderline low but appears baseline -CT scan yesterday revealed an 8.2 x 4.5 cm gas and fluid collection within the left deep pelvis which extends into the left iliopsoas muscle consistent with an abscess. This likely originates from the rectal stump and is consistent with suture breakdown/leak at the rectal stump -We would recommend IR drainage in this situation. Our IR team is unavailable this week. Given patient's stability she can likely get by with abx and follow up with IR as an outpatient next week here vs. somewhere of her preference, will discuss with hospitalists if able to coordinate this for thursday as outpt? Plan I have seen and examined this patient this am. She continues to deny further syncope, states she feels back to her usual self and no evidence of sepsis. I agree with the plan. Admission and Anticipated Discharge Date Admission Date: May 29, 2023 Subjective Patient reports feeling well. Denies abdominal pain, nausea/vomiting, no recent episodes of syncope. Physical Exam Physical Exam: awake/alert, no distress Respiratory: normal respiratory effort Gastrointestinal (Abdomen): Percussion/Palpation: abdomen soft; abdomen nontender + ostomy Results & Data Vital Signs (Past 12 Hours) Vital Signs Temp Pulse Pulse Resp BP BP Pulse Ox 06/03/23 07:25 37.0 C 83 16 82/40 L 99 06/03/23 07:07 89 06/03/23 05:30 95/56 L 06/03/23 04:00 37.3 C 95 H 18 89/52 L 89/51 L 99 06/03/23 00:30 95 H 06/03/23 00:32 06/02/23 23:55 37.6 C H 97 H 20 104/62 99 O2 Del Method 06/03/23 07:25 Room Air 06/03/23 07:07 06/03/23 05:30 06/03/23 04:00 Room Air 06/03/23 00:30 06/03/23 00:32 Room Air 06/02/23 23:55 Room Air PG Care Time/CCT Total # of Minutes Spent Total Time Spent with Patient: Total time spent is greater than 50% in coordination of care (as documented) at patient's floor/unit and/or counseling patient: Coding Level of Care Code 75409 SUB INP/OBS CARE 09/17MIN Diagnoses Intra-abdominal abscess K65.1
[2023-06-03 15:26] LABS: Hematocrit (blood only) 24.4 % (37.0-47.0); Hemoglobin 7.6 g/dl (12.0-16.0)
[2023-06-03] MEDS: CEFDINIR 300 MG CAP PO SCH (17:30)
[2023-06-03] MEDS: ONDANSETRON INJ 2 MG/ML 2 ML VIAL IV PRN (17:36)
--- NOTE | 2023-06-03 18:56 | Billing Data ---
Date of Service June 03, 2023 Coding Level of Care Code 09380 SUB INP/OBS CARE MIN
[2023-06-03] MEDS: LATANOPROST 0.005% OP SOLN 2.5 ML BTL OPB SCH (20:32)
[2023-06-04] MEDS: ENOXAPARIN INJ 30 MG/0.3 ML SYR SQ SCH (05:28)
--- NOTE | 2023-06-04 07:08 | Hospitalist Progress Note ---
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 Patient denies chest pain, palpitations or dizziness. Near Syncopal Episode -+ orthostatic vital signs, also found to be anemic -mildly elevated troponin trended to peak -No further episodes and overall feeling better, suspect her symptoms could be secondary to her chemotherapy treatments Possible Iliopsoas Abscess -Incidental finding on CT abdomen 06/02 -Patient is has no abdominal pain, did note some nausea on 06/03. -General Surgery consulted -Recommend conservative management at this time while we are awaiting IR next week -Continue Metronidazole -Discussed with patient and her son the option to consider transfer to tertiary hospital, they would prefer to stay and wait for IR Normocytic Anemia -Patient with chronic baseline anemia. -No signs of active bleeding. -Hbg 05/30 qAM= 6.8, blood was unable to be matched until mid day and repeat at that time was 8, so held off on transfusion. Fluctuation of hgb throughout the day has continued -Has not received any transfusions, as hemoglobin had increased. -Should patient need a transfusion she does have multiple blood antibodies x3. She would need irradiated blood. 2 units cross matched. -Anemia with intermittent variations of >1 point of hemoglobin. 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 Fierro). -Will plan for repeat blood work in afternoons -Hgb is 7.6 this afternoon UTI Patient reports thick, brown vaginal discharge as well as purulent appearing urine and pneumaturia likely UTI. Patient also complaining of vaginal discharge. 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 Does not want surgery at this time. -Will f/u with urology as an outpatient ABILIO Mild elevation of BUN and creatinine from baseline. Patient reports normal urine output -Avoid nephrotoxic agents -Renal dosing are needed -Downtrending since admission Hypokalemia -Continue Klor-Con 10 milliequivalents p.o. daily -Continue to trend ProphylaxisLovenox Codefull PT/OT consulted (2) UTI (urinary tract infection): (3) ABILIO (acute kidney injury): (4) Anemia: (5) Acute hypokalemia: Admission and Anticipated Discharge Date Admission Date: May 29, 2023 Supervising Physician Co-Signing Physician Notes I personally examined the patient and verified all amin points of history and exam, discussed case, and agree with decision making with Dr Silverio no problems. Discussed with hematology/oncology, input greatly appreciated. Vitals noted, in general she is awake and alert pleasant no distress. HEENT normocephalic atraumatic mucous membranes moist. Breathing unlabored no accessory muscle use good effort. Skin shows no rashes no pallor or icterus. Neuro without focal deficits. Hypotension/ABILIO/UTI/chronic anemiafortunately does not appear to have any significant blood loss, I suspect anemia was positional meats dilutional meets lab variation. Continue antibiotics. Continue IV fluidsit sounds like she drinks enough at homeI wonder if her hypotension was not just a secondary side effect of her chemotherapy. Not septic/septic shock. Otherwise as above. Abdominal abscess finding on CT incidentally noted, surprisingly asymptomatic, Continue cefdinir/Flagyl. After discussion with patient and songiven that this is a new finding, even though she is asymptomatic, its very worrisome to have her go home without being sure that things are stable (especially given that it was not present just 4 days prior)and so we really need to follow her on antibiotics for several days, then repeat CT, and then possibly set things up for outpatientand given that IR will be available again at the beginning of next week, largely would be the same timeframe to have IR see her here. We also discussed possibility of transfer for immediate IR availability, but given that she is feeling okay and does not feel that there is a crisis emergency, she would prefer to avoid transfer at this timewhich I agree with. stable today - stay the course, anticipate hopefully IR drainage thursday otherwise as above Subjective Patient seen and examined at bedside. Yesterday evening she reported having more nausea, but this has improved. Denies dizziness/lightheadedness. Review of Systems Review of Systems: As per above Physical Exam Constitutional: + thin; no acute distress Eyes: + anicteric sclerae; no conjunctival abnormality ENMT: Ears: no external ear abnormality Nose: no external nose abnormality Respiratory: normal respiratory effort, lungs clear to auscultation Cardiovascular: Rate/Rhythm: regular rate and regular rhythm Gastrointestinal (Abdomen): Percussion/Palpation: abdomen soft; abdomen nontender Skin: no rashes, warm and dry Psychiatric: A+Ox3, euthymic affect Results & Data Results & Data Vital Signs (Past 12 Hours) Vital Signs Temp Pulse Pulse Resp BP Pulse Ox O2 Del Method 06/04/23 03:24 37.0 C 87 20 99/49 L 98 Room Air 06/04/23 00:00 92 H 06/03/23 23:54 37.7 C H 92 H 20 94/52 L 99 Room Air 06/03/23 19:43 37.4 C 100 H 20 101/62 100 Room Air Resident Activity Tracking Resident Involvement: Resident Care Provided Care Provided: Adult Hospital Medicine
[2023-06-04] MEDS: metroNIDAZOLE 500 MG TAB PO SCH ×3 (08:26→20:01)
[2023-06-04] MEDS: allopurinoL 100 MG TAB PO SCH (08:26)
[2023-06-04] MEDS: POTASSIUM CHLORIDE 10 MEQ TABCR PO SCH (08:26)
--- NOTE | 2023-06-04 09:23 | Surgery Progress Note ---
Date of Service June 04, 2023 Assessment & Plan (1) Intra-abdominal abscess: Plan: Patient denies any complaints this AM -No pain/n/v tolerating her diet VSS Labs not drawn this AM yet Patient states she will stay here until Thursday when IR capabilities are avai lable Admission and Anticipated Discharge Date Admission Date: May 29, 2023 Supervising Physician Co-Signing Physician Notes I personally saw and evaluated the patient with Cheryl COMBS and agree with the assessment plan. 62-year-old female with a left pelvic abscess extending into the left psoas likely from rectal stump leak Patient is relatively asymptomatic with regards to this and is not showing any signs of sepsis She is tolerating a diet and her ostomy is working Plan would be to have IR see if they can drain this, this can be done as an outpatient as IR is not here until Thursday Surgery will sign off at this time, please call with any questions or concerns Subjective patient sitting up in bed eating breakfast currently has no complaints Review of Systems Constitutional: no fever, no chills and no sweats Cardiovascular: no chest pain Gastrointestinal: + belching; no abdominal pain, no nausea, no vomiting and no change in stools Genitourinary: + vaginal discharge Physical Exam Physical Exam: alert oriented pleasant Constitutional: cooperative and comfortable; no acute distress Respiratory: normal respiratory effort and able to speak in complete sentences; no respiratory distress Cardiovascular: Rate/Rhythm: regular rate Chest (Breasts): Chest: + vascular access device or port Gastrointestinal (Abdomen): Inspection/Auscultation: + abdominal surgical scar; abdomen not distended Percussion/Palpation: + abdomen tender (reports tenderness in RUQ with palpation) and abdomen soft; no guarding and abdomen not firm Results & Data Vital Signs (Past 12 Hours) Vital Signs Temp Pulse Pulse Resp BP Pulse Ox O2 Del Method 06/04/23 07:34 98.6 F 89 16 101/57 L 99 Room Air 06/04/23 07:39 83 06/04/23 03:24 98.6 F 87 20 99/49 L 98 Room Air 06/04/23 00:00 92 H 06/03/23 23:54 99.9 F H 92 H 20 94/52 L 99 Room Air PG Care Time/CCT Total # of Minutes Spent Total Time Spent with Patient: Total time spent is greater than 50% in coordination of care (as documented) at patient's floor/unit and/or counseling patient: Coding Level of Care Code 27575 SUB INP/OBS CARE Diagnoses Intra-abdominal abscess K65.1
[2023-06-04 13:08] LABS: Basophils # (auto) 0.02 K/uL (0.00-0.20); Basophils % (auto) 0.3 %; Eosinophils # (auto) 0.11 K/uL (0.00-0.50); Eosinophils % (auto) 1.7 %; Hematocrit (blood only) 24.1 % (37.0-47.0); Hemoglobin 7.6 g/dl (12.0-16.0); Immature Granulocytes # (auto) 0.05 K/uL (0.01-0.20); Immature Granulocytes % (auto) 0.8 %; Lymphocytes % (auto) 18.3 %; Mean Corpuscular Hgb Conc 31.5 g/dL (32.0-36.0); Mean Corpuscular Volume 88.9 fL (80.0-100.0); Mean Platelet Volume 11.6 fL (9.4-12.4); Monocytes # (auto) 0.56 K/uL (0.11-0.59); Monocytes % (auto) 8.5 %; Neutrophils # (auto) 4.62 K/uL (1.40-6.50); Neutrophils % (auto) 70.4 %; Platelet Count 188 K/uL (130-400); RDW Coefficient of Variation 16.8 % (11.5-14.5); RDW Standard Deviation 53.4 fL (36.4-46.3); Red Blood Count 2.71 M/uL (4.20-5.40); White Blood Count 6.56 K/ul (4.8-10.8)
[2023-06-04 13:24] LABS: BUN Creatinine Ratio 13.5 (10-20); Calcium 8.2 mg/dl (8.6-10.3); Creatinine Clr Calc Pharmacy 19.5 ml/min; Est GFR (African American) 29.2 ml/min; Est GFR (Non-African American) 25.2 ml/min; Potassium 3.7 mmol/L (3.5-5.1)
[2023-06-04] MEDS: HEPARIN 100 UNIT/ML 5ML FLUSH FLUSH PRN (13:24)
[2023-06-04 13:56] LABS: Ovalocytes 1+; Polychromasia 1+; Tear Drop Cells 1+
--- NOTE | 2023-06-04 17:15 | Billing Data ---
Date of Service June 04, 2023 Coding Level of Care Code 25193 SUB INP/OBS CARE MIN
--- NOTE | 2023-06-04 17:16 | Billing Data ---
Date of Service June 04, 2023 Coding Level of Care Code 36290 SUB INP/OBS CARE MIN
[2023-06-04] MEDS: CEFDINIR 300 MG CAP PO SCH (17:52)
[2023-06-04] MEDS: LATANOPROST 0.005% OP SOLN 2.5 ML BTL OPB SCH (20:02)
--- NOTE | 2023-06-04 21:41 | Consultation ---
Date of Consultation June 04, 2023 Assessment & Plan (1) Intra-abdominal abscess: While she is not toxic, we should unequivocally address the intra-abdominal abscess with optimal management of drainage and antibiotics retrospectively what she thought was "urinary tract infection" was probably the evolving abscess and its stabilization could have fundamentally important implications for her quality of life and even quantity of life going forward (2) Chronic ITP (idiopathic thrombocytopenia): Longstanding ITP which is responded quite well to romiplostim. Current platelet count of 188,000 is more than adequate, can hold romiplostim for now reassessing the platelet count periodically and has it drops below 75,000 consider additional doses. (3) Mucinous adenocarcinoma of appendix: Overall Brooke has done extraordinarily well for the decade plus that she has been dealing with this disease leading a very active and full life despite multiple chemotherapy regimens. Her February admission marked an unfortunate watershed moment shifting over to multiorgan dysfunction and lesser performance status. Have been particular concerned about renal function which she has regained in part but not all the way to baseline ever since that episode as well as her persistent significant anemia signaling that her marrow may be "burned out" from all the years of chemotherapy. Several attempts to schedule bone marrow aspiration and biopsy have been unsuccessful because of loss of insurance or schedule conflicts on the patient's part. That might definitively assess for any marrow involvement with malignancy, myelodysplastic syndrome, or aplasia that underlies her refractory anemia. What ever we do or do not find on a marrow biopsy if we are able to progress to that, however, the fundamental challenge is to determine whether any further chemotherapy is truly going to make a big enough difference to justify what may be even life-threatening toxicity given at sufficient doses for impact on her cancer. Even prior to this particular episode, I had begun a discussion with Brooke as to philosophically whether it may be time to turn away from active oncology treatment and embrace more what we can do for immediate quality of life with her family and friends. Even if we are to consider resuming cytotoxic's, we would need to have the abdominal abscess fully stabilized before doing so. Suggest that our immediate focus be on optimizing that infectious issue. As she reaches more complete recovery, we will continue our own conversation about the role for treatment. We will check a CEA as well but comparing the current CT scans to those done in January and March, abdominal disease seems to be at least stable and thus we are not immediately pressed to intervene in any case Plan Would focus on optimal treatment of her abdominal abscess. There is no immediate role for chemotherapy at this time and we need to continue with a larger conversation as to whether that will ever make sense again. Palliative care consultation might be helpful in optimizing this conversation History of Present Illness Reason for Consultation: Apparent pelvic abscess in a patient with longstanding history of appendiceal carcinoma with pseudomyxoma peritonei Attending Physician: Alfonso Encarnacion DO History of Present Illness Complex and prolonged medical history of appendiceal cancer first diagnosed in 2012 with T4 NX M1 disease at first presentation. He presented with a complex cystic mass occupying the majority of the abdomen/pelvis 34 cm in maximum diameter and was taken for urgent exploratory laparotomy removing a well dif ferentiated mucinous adenocarcinoma of the appendix, positive margin with invasion of the right lateral wall. This rapidly sequenced to an exploratory laparotomy with extended right colectomy and ileostomy with mucous fistula. She had widespread peritoneal involvement though no specifically diagnosed jacinda involvement at that time. She has had a series of treatments over the years include FOLFOX, FOLFIRI, capecitabine/bevacizumab, resumed FOLFOX, monotherapy with bevacizumab, some unique combinations of her anticandida/5-FU/leucovorin all coordinated up until the end of 2021 through the . She had continued on that irinotecan/5-FU/leucovorin combination here for the last 10 months though there have been interruptions at times because of toxicity and at times because she had lost insurance coverage She has concomitant ITP which has been stabilized with ongoing romiplostim but was showing signs of more significant pancytopenia limiting the doses of her chemotherapy and some functional decline particularly acutely with an admission in February with acute renal insufficiency. A long discussion with the patient that time we raise a concern that the treatment was becoming worse and her disease and ultimately agreed on a "chemotherapy holiday" which is lasted through the duration of the summer. She seemed to benefit from cessation of cytotoxic's and was showing with relatively good performance status though she has been intermittently complaining of what she thought was an evolving urinary tract infection that did not seem to respond to antibiotics and pelvic discomfort. She is unfortunately admitted now with what looks like a large pelvic abscess Allergies Allergy/AdvReac Type Severity Reaction Status Date / Time pineapple Allergy Severe anaphylaxis Verified 05/29/23 21:42 cantaloupe Allergy Intermediate Hives Verified 05/29/23 21:42 Titus And Derivatives Allergy Intermediate hives Verified 05/29/23 21:42 clarithromycin Allergy Intermediate hives Verified 05/29/23 21:42 naproxen Allergy Intermediate hives Verified 05/29/23 21:42 Penicillins Allergy Intermediate hives Verified 05/29/23 21:42 tomato Allergy Intermediate hives, Verified 05/29/23 21:42 throat tightness latex Allergy Mild rash Verified 05/29/23 21:42 lemon Allergy Verified 05/30/23 12:43 lemon oil Allergy Verified 05/30/23 12:43 [place] Allergy Verified 05/30/23 13:03 orange Allergy Verified 05/30/23 12:43 orange (food color) Allergy Verified 05/30/23 12:43 orange flavor Allergy Verified 05/30/23 12:43 orange juice Allergy Verified 05/30/23 12:43 Home Medications Medication Instructions Recorded Confirmed Type brimonidine 0.1 % eye drops 1 drp OPB TID 05/12/19 05/29/23 History (Alphagan P) cholecalciferol (vitamin D3) 50 2,000 unit PO QAM 05/12/19 05/29/23 History mcg (2,000 unit) capsule (Vitamin D3) latanoprost 0.005 % eye drops 1 drp OPB HS 05/12/19 05/29/23 History (Xalatan) multivitamin 1 tab PO QAM 05/12/19 05/29/23 History ondansetron HCl 8 mg tablet 8 mg PO Q8H PRN Nausea 12/18/20 05/29/23 History prochlorperazine maleate 10 mg 10 mg PO Q6 PRN Nausea 12/18/20 05/29/23 History tablet allopurinol 100 mg tablet 200 mg PO DAILY 02/17/23 05/29/23 History potassium chloride 10 mEq 10 meq PO DAILY 02/17/23 05/29/23 History capsule,extended release Patient History Medical History Acute hypokalemia Acute kidney injury superimposed on CKD Anemia chronic, baseline hgb 9-11 range per chart review Borderline diabetes diet controlled Chronic ITP (idiopathic thrombocytopenia) platelet WNL on 06/01/20 labs High cholesterol Hyponatremia Mucinous adenocarcinoma of appendix (~03/2013) 2013 Pancreatitis post-op (2014) 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, chemo currently Surgical History Encounter for insertion of venous access port 2012 (subsequent removal) History of laparotomy USO + salipngectomy Hx laparoscopic cholecystectomy 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 Family History Other Diabetes Heart disease Hypertension Stroke Social History Smoking Status: Never smoker Second Hand Exposure: No; Do You Dip or Chew Tobacco: No; Hx Alcohol Use: No Hx Substance Use: No Preferred Language: Tunisian Communication Ability: Effective Ballet Professor Required: No Beliefs That Will Affect Care: None marital status: Current Living Situation: Family Current Living Situation Comment: lives with son Feels Safe at Home: Yes Assistive Devices: None Physical Exam Physical Exam: Vital signs are currently stable. She is moderately ill-appearing though not grossly toxic. Lung and cardiac exam seems stable, she does not have a "surgical" abdomen though there is some tenderness. Results & Data Vital Signs (Past 12 Hours) Vital Signs Temp Pulse Resp BP Pulse Ox O2 Del Method 06/04/23 15:28 37.3 C 86 16 100/63 99 Room Air 06/04/23 11:23 37.0 C 80 16 97/58 L 100 Room Air Laboratory Results Laboratory Results - last 24 hr 06/04/23 06/04/23 12:44 12:44 WBC 6.56 RBC 2.71 L Hgb 7.6 L Hct 24.1 L MCV 88.9 MCH 28.0 MCHC 31.5 L RDW Std Deviation 53.4 H RDW Coeff of Veda 16.8 H Plt Count 188 MPV 11.6 Immature Gran % (Auto) 0.8 Neut % (Auto) 70.4 Lymph % (Auto) 18.3 Sawyer % (Auto) 8.5 Eos % (Auto) 1.7 Baso % (Auto) 0.3 Neut # (Auto) 4.62 Lymph # (Auto) 1.20 Sawyer # (Auto) 0.56 Eos # (Auto) 0.11 Baso # (Auto) 0.02 Immature Gran # (Auto) 0.05 Polychromasia 1+ Tear Drop Cells 1+ Ovalocytes 1+ Sodium 138 Potassium 3.7 Chloride 107 Carbon Dioxide 27 Anion Gap 4 BUN 28 H Creatinine 2.07 H Est Cr Clr Drug Dosing 19.5 Est GFR ( Amer) 29.2 Est GFR (Non-Af Amer) 25.2 BUN/Creatinine Ratio 13.5 Glucose 134 H Calcium 8.2 L Diagnostic Findings Chest X-Ray 05/29/23 20:06 SINGLE VIEW CHEST CLINICAL HISTORY: Sepsis. FINDINGS: 2 AP, portable, upright chest radiographs are obtained to study dated 02/17/2023. A right internal jugular central venous infusion port is unchanged in position. The heart is enlarged noting atherosclerotic calcification of the t horacic area the pulmonary vasculature is noncongested. Chronic interstitial thickening is similar to previous. The lungs and pleural spaces are clear. No pneumothorax is seen. The skeletal structures are osteopenic. The skeletal structures are osteopenic. The bony thorax is grossly intact. Surgical clips are seen in the upper abdomen. IMPRESSION: No active disease in the chest. ACT 112: Negative or not required by law. Electronically signed by: Jerald Sanders M.D. 05/29/2023 9:[address] 05/29/23 20:06 CT SCAN OF THE BRAIN WITHOUT IV CONTRAST CLINICAL HISTORY: Syncope. COMPARISON STUDY: CT of the brain dated 12/18/2020. TECHNIQUE: Unenhanced axial CT scan of the brain is performed from the vertex to the skull base. A dose lowering technique was utilized adhering to the principles of ALARA. FINDINGS: Brain parenchyma: The brain parenchyma is normal in appearance. There is no hemorrhage, mass effect, or evidence of acute territorial ischemia by CT criteria. Mclean-white matter differentiation is preserved. No extra-axial fluid collection is seen. Ventricles, sulci, cisterns: Normal in configuration. Intracranial vasculature: There is atherosclerotic calcification of the cavernous carotid and vertebral arteries. Calvarium: Unremarkable. Sinuses and mastoids: There is near complete opacification of the right sphenoid sinus. Thickening and sclerosis of the sinus wall suggests chronicity. The remaining visualized paranasal sinuses are clear. The mastoid air cells are well pneumatized. Orbits: The bony orbits are grossly intact. IMPRESSION: There is no hemorrhage, mass effect, or evidence of acute territorial ischemia by CT criteria. ACT 112: Negative or not required by law. Electronically signed by: Jerald Sanders M.D. 05/29/2023 9:22 PM Abdomen/Pelvis CT 05/29/23 20:32 Exam(s): CT ABDOMEN + PELVIS Without Contrast EXAM: CT Abdomen and Pelvis Without Intravenous Contrast CLINICAL HISTORY: Reason for exam: syncope dysuria recent uti colon cancer. TECHNIQUE: Axial computed tomography images of the abdomen and pelvis without intravenous contrast. CTDI is 9.82 mGy and DLP is 415.4 mGy-cm. Automated exposure control was utilized for the study. A dose lowering technique was utilized adhering to the principles of ALARA. COMPARISON: No relevant prior studies available. FINDINGS: Lung bases: Unremarkable. No mass. No consolidation. ABDOMEN: Liver: See below. Gallbladder and bile ducts: Unremarkable. No calcified stones. No ductal dilation. Pancreas: Unremarkable. No ductal dilation. Spleen: Multiple calcified splenic and hepatic lesions, measuring up to 4.9 x 4.1 cm in the RIGHT hepatic lobe. Metastatic disease cannot be excluded. Evaluation is limited due to lack of contrast. Adrenals: Unremarkable. No mass. Kidneys and ureters: Unremarkable. No hydronephrosis or nephrolithiasis. Stomach and bowel: Colectomy. RIGHT lower quadrant ostomy. No parastomal hernia. Evaluation of the bowel is limited due to lack of oral contrast. No obstruction. PELVIS: Appendix: See above. Bladder: Mild thickening of the urinary bladder which contains air, correlate for recent Kaminski catheter. UTI not excluded, urinalysis recommended. No stones. Reproductive: Unremarkable as visualized. ABDOMEN and PELVIS: Intraperitoneal space: Unremarkable. No free air. No significant fluid collection. Bones/joints: Degenerative changes of the spine. No acute fracture. No dislocation. Soft tissues: See above. Vasculature: Atherosclerotic changes of the aorta. No abdominal aortic aneurysm. Lymph nodes: Unremarkable. No enlarged lymph nodes. IMPRESSION: 1. Multiple calcified splenic and hepatic lesions, measuring up to 4.9 x 4.1 cm in the RIGHT hepatic lobe. Metastatic disease cannot be excluded. Evaluation is limited due to lack of contrast. 2. Mild thickening of the urinary bladder which contains air, correlate for recent Kaminski catheter. UTI not excluded, urinalysis recommended. 3. Colectomy. RIGHT lower quadrant ostomy. No parastomal hernia. 4. Evaluation of the bowel is limited due to lack of oral contrast. Electronically signed by: Javier An MD 05/29/23 21:26 PM Abdomen/Pelvis CT 06/02/23 10:[address] WITHOUT CONTRAST CT DOSE: HISTORY: Appendiceal adenocarcinoma TECHNIQUE: Multiaxial CT images of the abdomen and pelvis were performed without contrast. A dose lowering technique was utilized adhering to the principles of ALARA. COMPARISON STUDY: Abdomen and pelvis CT 05/29/2023. FINDINGS: No pneumoperitoneum. No pneumatosis. No suspicious lytic or blastic osseous lesions. There is an old mild superior endplate compression deformity at L4, unchanged. Multiple hepatic and splenic capsular metastatic implants are again noted. These are partially calcified. Dominant lesion at the left hepatic lobe near the falciform ligament measures 5.4 cm. There are few additional calcified peritoneal implants within the upper abdomen which remain unchanged. The unenhanced pancreas and adrenal glands unremarkable. The spleen remains mildly enlarged. Thickening of the gastric antrum persists. No renal stones or hydronephrosis. Calcified plaque within the normal caliber abdominal aorta. Severe left-sided intrahepatic bile duct dilatation remains unchanged. 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 There is a gas and fluid collection within the left deep pelvis which appears to connect to the rectal stump and extends into the left iliopsoas muscle. This is best seen on images 178 through 245 within the left iliopsoas muscle. This gas and fluid collection partially surrounds the left iliac vessels and measures approximately 8.2 x 4.5 cm best seen on image 230. Therefore, this is consistent with an abscess likely from a leak at the suture line of the rectal stump best seen on image 225. There is mild inflammatory change adjacent to the left iliopsoas muscle. Bladder wall thickening and gas within the bladder lumen is again noted. This could be due to prior catheterization. An underlying fistula could also have a similar appearance. Recommend correlation with urinalysis. Dilated loop of small bowel within the right side of the abdomen persist and likely corresponds to prior anastomosis. No evidence for a bowel obstruction. IMPRESSION: 1. There is an 8.2 x 4.5 cm gas and fluid collection within the left deep pelvis which extends into the left iliopsoas muscle consistent with an abscess. This likely originates from the rectal stump and is consistent with suture breakdown/leak at the rectal stump. 2. Gas within the bladder lumen with persistent thickening of the bladder wall. This could be due to prior catheterization. An underlying fistula be difficult to exclude. 3. No significant change in the numerous metastatic implants compared to the prior study. 4. Stable left intrahepatic bile duct dilatation. 5. Postoperative changes as described above. 6. Persistent thickening of the gastric antrum. 7. Additional findings as described above. ACT 112: Negative or not required by law. Electronically signed by: Jame Sotomayor M.D. 06/02/2023 1:[address] 06/02/23 10:30 CT chest diagnostic wo con CT DOSE: HISTORY: Appendiceal adenocarcinoma TECHNIQUE: Multiaxial CT images of the chest were performed without contrast. A dose lowering technique was utilized adhering to the principles of ALARA. COMPARISON: Chest CT 01/29/2023. FINDINGS: Abdominal metastases will be reported on the same day abdomen and pelvis CT. No suspicious lytic or blastic osseous lesions. A right jugular Port-A-Cath terminates in the SVC. Decreased attenuation within the blood pool consistent with underlying anemia. No mediastinal, hilar, or axillary lymphadenopathy. The heart is top normal in size. Moderate coronary artery calcifications are noted. Mild calcified plaque within the normal caliber thoracic aorta. Normal esophagus. No pneumothorax. The central airways are patent. No new or suspicious pulmonary nodules. No focal lung consolidations to suggest a pneumonia. No evidence for pulmonary edema. A few small bibasilar linear densities favor subsegmental atelectasis or scarring. IMPRESSION: 1. No evidence for metastatic disease within the chest. 2. The abdominal metastases will be reported on the same day abdomen and pelvis CT. ACT 112: Negative or not required by law. Electronically signed by: Jame Sotomayor M.D. 06/02/2023 12:56 PM PG Care Time/CCT Total # of Minutes Spent Total Time Spent with Patient: Total time spent is greater than 50% in coordination of care (as documented) at patient's floor/unit and/or counseling patient: [place] [address] IN/OBS CONSULT LVL 4,60M Patient Type New Diagnoses Intra-abdominal abscess K65.1 Chronic ITP (idiopathic thrombocytopenia) D69.3 Mucinous adenocarcinoma of appendix C18.1
[2023-06-05] MEDS: ENOXAPARIN INJ 30 MG/0.3 ML SYR SQ SCH (05:39)
--- NOTE | 2023-06-05 07:04 | Hospitalist Progress Note ---
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 Patient denies chest pain, palpitations or dizziness. Near Syncopal Episode -+ orthostatic vital signs, also found to be anemic -mildly elevated troponin trended to peak -No further episodes and overall feeling better, suspect her symptoms could be secondary to her chemotherapy treatments Possible Iliopsoas Abscess -Incidental finding on CT abdomen 06/02 -Patient is has no abdominal pain, did note some nausea on 06/03. -General Surgery consulted -Recommend conservative management at this time while we are awaiting IR next week -Continue Metronidazole -Discussed with patient and her son the option to consider transfer to tertiary hospital, they would prefer to stay and wait for IR -06/05: spoke with radiology nurse regarding IR evaluation/intervention next week. Will contact IR again on Thursday Normocytic Anemia -Patient with chronic baseline anemia. -No signs of active bleeding. -Hbg 05/30 qAM= 6.8, blood was unable to be matched until mid day and repeat at that time was 8, so held off on transfusion. Fluctuation of hgb throughout the day has continued -Has not received any transfusions, as hemoglobin had increased. -Should patient need a transfusion she does have multiple blood antibodies x3. She would need irradiated blood. 2 units cross matched. -Anemia with intermittent variations of >1 point of hemoglobin. -Suspect that this is multifactorial, but consult placed to her director digital analytics/oncologist (Dr. Fierro). -Will plan for repeat blood work in afternoons -Hgb is 7.7 this afternoon UTI Patient reports thick, brown vaginal discharge as well as purulent appearing urine and pneumaturia likely UTI. Patient also complaining of vaginal discharge. 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 Does not want surgery at this time. -Will f/u with urology as an outpatient ABILIO Mild elevation of BUN and creatinine from baseline. Patient reports normal urine output -Avoid nephrotoxic agents -Renal dosing are needed -Downtrending since admission Hypokalemia -Continue Klor-Con 10 milliequivalents p.o. daily -Continue to trend ProphylaxisLovenox Codefull PT/OT consulted (2) UTI (urinary tract infection): (3) ABILIO (acute kidney injury): (4) Anemia: (5) Acute hypokalemia: Admission and Anticipated Discharge Date Admission Date: May 29, 2023 Supervising Physician Co-Signing Physician Notes I personally examined the patient and verified all amin points of history and exam, discussed case, and agree with decision making with Dr Silverio no problems. no acute complaints. resident physician informed radiology of need for IR intervention, ideally thursday. Vitals noted, in general she is awake and alert pleasant no distress. HEENT normocephalic atraumatic mucous membranes moist. Breathing unlabored no accessory muscle use good effort. Skin shows no rashes no pallor or icterus. Neuro without focal deficits. Hypotension/ABILIO/UTI/chronic anemiafortunately does not appear to have any significant blood loss, I suspect anemia was positional meets dilutional meets lab variation. Continue antibiotics. Not septic/septic shock. Otherwise as above. Abdominal abscess finding on CT incidentally noted, surprisingly asymptomatic, Continue cefdinir/Flagyl. After discussion with patient and sonthe other day -given that this is a new finding, even though she is asymptomatic, its very worrisome to have her go home without being sure that things are stable (especially given that it was not present just 4 days prior)and so we really need to follow her on antibiotics for several days, then repeat CT, and then possibly set things up for outpatientand given that IR will be available again at the beginning of next week, largely would be the same timeframe to have IR see her here. We also discussed possibility of transfer for immediate IR availability, but given that she is feeling okay and does not feel that there is a crisis emergency, she would prefer to avoid transfer at this timewhich I agree with. stable today - stay the course, anticipate hopefully IR drainage thursday. no new issues today. otherwise as above Subjective Patient seen and examined at bedside. No additional nausea but did have some inc reased reflux after eating beef- she notes that this is a trigger for her reflux. Denies any dizziness or lightheadedness. Review of Systems Review of Systems: As per above Physical Exam Constitutional: + thin; no acute distress Eyes: + anicteric sclerae; no conjunctival abnormality ENMT: Ears: no external ear abnormality Nose: no external nose abnormality Respiratory: normal respiratory effort, lungs clear to auscultation Cardiovascular: Rate/Rhythm: regular rate and regular rhythm Extremities: no edema Gastrointestinal (Abdomen): Percussion/Palpation: abdomen soft; abdomen nontender Skin: no rashes, warm and dry Psychiatric: A+Ox3, euthymic affect Results & Data Results & Data Vital Signs (Past 12 Hours) Vital Signs Temp Pulse Resp BP Pulse Ox O2 Del Method 06/04/23 22:00 37.7 C H 89 16 111/70 100 Room Air Resident Activity Tracking Resident Involvement: Resident Care Provided Care Provided: Adult Hospital Medicine
[2023-06-05] MEDS: allopurinoL 100 MG TAB PO SCH (10:00)
[2023-06-05] MEDS: metroNIDAZOLE 500 MG TAB PO SCH ×3 (10:00→20:17)
[2023-06-05] MEDS: POTASSIUM CHLORIDE 10 MEQ TABCR PO SCH (10:01)
[2023-06-05 13:35] LABS: Basophils # (auto) 0.03 K/uL (0.00-0.20); Basophils % (auto) 0.4 %; Eosinophils # (auto) 0.17 K/uL (0.00-0.50); Eosinophils % (auto) 2.5 %; Hematocrit (blood only) 23.8 % (37.0-47.0); Hemoglobin 7.7 g/dl (12.0-16.0); Immature Granulocytes # (auto) 0.08 K/uL (0.01-0.20); Immature Granulocytes % (auto) 1.2 %; Lymphocytes # (auto) 1.45 K/uL (1.20-3.40); Lymphocytes % (auto) 21.7 %; Mean Corpuscular Hemoglobin 28.3 pg (25.0-34.0); Mean Corpuscular Hgb Conc 32.4 g/dL (32.0-36.0); Mean Corpuscular Volume 87.5 fL (80.0-100.0); Mean Platelet Volume 12.2 fL (9.4-12.4); Monocytes # (auto) 0.67 K/uL (0.11-0.59); Neutrophils # (auto) 4.29 K/uL (1.40-6.50); Neutrophils % (auto) 64.2 %; Platelet Count 212 K/uL (130-400); RDW Coefficient of Variation 17.3 % (11.5-14.5); RDW Standard Deviation 53.6 fL (36.4-46.3); Red Blood Count 2.72 M/uL (4.20-5.40); White Blood Count 6.69 K/ul (4.8-10.8)
[2023-06-05 13:59] LABS: Anisocytosis Present; Polychromasia 1+; Tear Drop Cells 1+
[2023-06-05 14:02] LABS: BUN Creatinine Ratio 13.2 (10-20); Calcium 8.2 mg/dl (8.6-10.3); Creatinine Clr Calc Pharmacy 18.4 ml/min; Est GFR (African American) 27.3 ml/min; Est GFR (Non-African American) 23.6 ml/min; Potassium 3.7 mmol/L (3.5-5.1)
--- NOTE | 2023-06-05 16:38 | Billing Data ---
Date of Service June 05, 2023 Coding Level of Care Code 55753 SUB INP/OBS CARE
[2023-06-05] MEDS: CEFDINIR 300 MG CAP PO SCH (17:43)
[2023-06-05] MEDS: LATANOPROST 0.005% OP SOLN 2.5 ML BTL OPB SCH (20:17)
[2023-06-05] MEDS ORDERED: LACTATED RINGER'S 500 ML IV ONE (23:52)
[2023-06-06] MEDS ORDERED: LACTATED RINGER'S 500 ML IV ONE ×2 (02:12→07:42)
[2023-06-06] MEDS: ENOXAPARIN INJ 30 MG/0.3 ML SYR SQ SCH (06:00)
--- NOTE | 2023-06-06 07:44 | Hospitalist Progress Note ---
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 Patient denies chest pain, palpitations or dizziness. Near Syncopal Episode -+ orthostatic vital signs, also found to be anemic -mildly elevated troponin trended to peak -No further episodes and overall feeling better, suspect her symptoms could be secondary to her chemotherapy treatments Hypotension -BP at baseline is between 90s-100s systolic, BP dropped to systolic of 70s. Patient states she was asymptomatic -S/p 1L LR bolus overnight, additional 500mL bolus this morning -Maintenance fluids started at 80mL/h Possible Iliopsoas Abscess -Incidental finding on CT abdomen 06/02 -Patient is has no abdominal pain, did note some nausea on 06/03. -General Surgery consulted -Recommend conservative management at this time while we are awaiting IR next week -Continue Metronidazole -Discussed with patient and her son the option to consider transfer to tertiary hospital, they would prefer to stay and wait for IR -06/05: spoke with radiology nurse regarding IR evaluation/intervention next week. Will contact IR again on Thursday Normocytic Anemia -Patient with chronic baseline anemia. -No signs of active bleeding. -Hbg 05/30 qAM= 6.8, blood was unable to be matched until mid day and repeat at that time was 8, so held off on transfusion. Fluctuation of hgb throughout the day has continued -Has not received any transfusions, as hemoglobin had increased. -Should patient need a transfusion she does have multiple blood antibodies x3. She would need irradiated blood. 2 units cross matched. -Anemia with intermittent variations of >1 point of hemoglobin. -Suspect that this is multifactorial, but consult placed to her office runner/oncologist (Dr. Fierro). -Will plan for repeat blood work in afternoons -P.m. CBC: Hgb of 6.5- suspect this is secondary to dilutional effect as she has received >1.5L of IV fluids. Will repeat H&H UTI Patient reports thick, brown vaginal discharge as well as purulent appearing urine and pneumaturia likely UTI. Patient also complaining of vaginal discharge. 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 Does not want surgery at this time. -Will f/u with urology as an outpatient ABILIO Mild elevation of BUN and creatinine from baseline. Patient reports normal urine output -Avoid nephrotoxic agents -Renal dosing are needed -Downtrending since admission Hypokalemia -Continue Klor-Con 10 milliequivalents p.o. daily -Continue to trend ProphylaxisLovenox Codefull PT/OT consulted (2) UTI (urinary tract infection): (3) ABILIO (acute kidney injury): (4) Anemia: (5) Acute hypokalemia: Admission and Anticipated Discharge Date Admission Date: May 29, 2023 Supervising Physician Co-Signing Physician Notes I personally examined the patient and verified all amin points of history and exam, discussed case, and agree with decision making with Dr Silverio no new complaints. Vitals noted, in general she is awake and alert pleasant no distress. HEENT normocephalic atraumatic mucous membranes moist. Breathing unlabored no accessory muscle use good effort. Skin shows no rashes no pallor or icterus. Neuro without focal deficits. Hypotension/ABILIO/UTI/chronic anemiafortunately does not appear to have any significant blood loss, I suspect anemia was positional meets dilutional meets lab variation. Continue antibiotics. Not septic/septic shock. Otherwise as above. Abdominal abscess finding on CT incidentally noted, surprisingly asymp tomatic, Continue cefdinir/Flagyl. After discussion with patient and cristobal in the week -given that this is a new finding, even though she is asymptomatic, its very worrisome to have her go home without being sure that things are stable (especially given that it was not present just 4 days prior)and so we really need to follow her on antibiotics for several days, then repeat CT, and then possibly set things up for outpatientand given that IR will be available again at the beginning of next week, largely would be the same timeframe to have IR see her here. We also discussed possibility of transfer for immediate IR availability, but given that she is feeling okay and does not feel that there is a crisis emergency, she would prefer to avoid transfer at this timewhich I agree with. stable today - stay the course, anticipate hopefully IR drainage thursday. no new issues again today - Hgb variation noted but no bleeding identified continue to follow. otherwise as above Subjective Patient seen and examined at bedside. Had some hypotension overnight and again this morning- patient denies any current dizziness/lightheadedness. She notes that she had a rough night and did not fall asleep until 4am- her son notified her that their apartment has an eviction notice which was upsetting. Review of Systems Review of Systems: As per above Physical Exam Constitutional: + thin; no acute distress Eyes: + anicteric sclerae; no conjunctival abnormality ENMT: Ears: no external ear abnormality Nose: no external nose abnormality Respiratory: normal respiratory effort, lungs clear to auscultation Cardiovascular: Rate/Rhythm: regular rate and regular rhythm Extremities: no edema Gastrointestinal (Abdomen): Percussion/Palpation: abdomen soft; abdomen nontender Skin: Skin is dry Psychiatric: A+Ox3, euthymic affect Results & Data Results & Data Vital Signs (Past 12 Hours) Vital Signs Temp Pulse Resp BP BP Pulse Ox O2 Del Method 06/06/23 02:00 98/54 L 06/05/23 23:47 93/43 L 06/05/23 22:00 37.5 C 78 18 84/46 L 93 Room Air Resident Activity Tracking Resident Involvement: Resident Care Provided Care Provided: Adult Hospital Medicine
[2023-06-06] MEDS: LACTATED RINGER'S 1,000 ML IV SCH ×2 (08:19→15:29)
[2023-06-06] MEDS: metroNIDAZOLE 500 MG TAB PO SCH ×3 (09:13→20:19)
[2023-06-06] MEDS: allopurinoL 100 MG TAB PO SCH (09:13)
[2023-06-06] MEDS: POTASSIUM CHLORIDE 10 MEQ TABCR PO SCH (09:13)
[2023-06-06 12:54] LABS: Albumin Globulin Ratio 0.7 (0.9-2); Albumin Level 2.3 gm/dl (3.4-5.0); BUN Creatinine Ratio 12.4 (10-20); Bilirubin,Total 2.4 mg/dl (0.2-1.0); Calcium 7.7 mg/dl (8.6-10.3); Est GFR (African American) 30.3 ml/min; Est GFR (Non-African American) 26.1 ml/min; Globulin 3.5 gm/dl (2.5-4.0); Potassium 3.5 mmol/L (3.5-5.1); Total Protein 5.8 gm/dl (6.0-8.3)
[2023-06-06 13:07] LABS: Hematocrit (blood only) 20.6 % (37.0-47.0); Hemoglobin 6.5 g/dl (12.0-16.0); Mean Corpuscular Hgb Conc 31.6 g/dL (32.0-36.0); Mean Corpuscular Volume 88.8 fL (80.0-100.0); Mean Platelet Volume 12.7 fL (9.4-12.4); Platelet Count 199 K/uL (130-400); RDW Coefficient of Variation 17.2 % (11.5-14.5); RDW Standard Deviation 54.9 fL (36.4-46.3); Red Blood Count 2.32 M/uL (4.20-5.40); White Blood Count 5.57 K/ul (4.8-10.8)
[2023-06-06 13:08] LABS: Basophils # (auto) 0.01 K/uL (0.00-0.20); Basophils % (auto) 0.2 %; Eosinophils % (auto) 1.8 %; Immature Granulocytes # (auto) 0.06 K/uL (0.01-0.20); Immature Granulocytes % (auto) 1.1 %; Lymphocytes # (auto) 0.99 K/uL (1.20-3.40); Lymphocytes % (auto) 17.8 %; Neutrophils # (auto) 3.91 K/uL (1.40-6.50); Neutrophils % (auto) 70.1 %; RBC Morphology Unremarkable
[2023-06-06] MEDS: CEFDINIR 300 MG CAP PO SCH (17:45)
--- NOTE | 2023-06-06 19:06 | Billing Data ---
Date of Service June 06, 2023 Coding Level of Care Code 75321 SUB INP/OBS CARE 3MIN
[2023-06-06] MEDS: LATANOPROST 0.005% OP SOLN 2.5 ML BTL OPB SCH (20:19)
[2023-06-07] MEDS: LACTATED RINGER'S 1,000 ML IV SCH ×2 (03:54→16:06)
[2023-06-07] MEDS: ENOXAPARIN INJ 30 MG/0.3 ML SYR SQ SCH (05:47)
--- NOTE | 2023-06-07 07:15 | Hospitalist Progress Note ---
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 Patient denies chest pain, palpitations or dizziness. Near Syncopal Episode -+ orthostatic vital signs, also found to be anemic -mildly elevated troponin trended to peak -No further episodes and overall feeling better, suspect her symptoms could be secondary to her chemotherapy treatments Hypotension -BP at baseline is between 90s-100s systolic, BP dropped to systolic of 70s. Patient was asymptomatic -BP improved with fluid boluses, added maintenance fluids Possible Iliopsoas Abscess -Incidental finding on CT abdomen 06/02 -Patient is has no abdominal pain, did note some nausea on 06/03. -General Surgery consulted -Recommend conservative management at this time while we are awaiting IR next week -Continue Metronidazole -Discussed with patient and her son the option to consider transfer to tertiary hospital, they would prefer to stay and wait for IR -06/05: spoke with radiology nurse regarding IR evaluation/intervention next week. Will contact IR again on Thursday -NPO at midnight in anticipation of potential procedure Normocytic Anemia -Patient with chronic baseline anemia. -No signs of active bleeding. -Hbg 05/30 qAM= 6.8, blood was unable to be matched until mid day and repeat at that time was 8, so held off on transfusion. Fluctuation of hgb throughout the day has continued -Has not received any transfusions, as hemoglobin had increased. -Should patient need a transfusion she does have multiple blood antibodies x3. She would need irradiated blood. 2 units cross matched. -Anemia with intermittent variations of >1 point of hemoglobin. -Suspect that this is multifactorial, but consult placed to her quilt sewer/oncologist (Dr. Fierro). -Will plan for repeat blood work in afternoons -06/06 Hgb of 6.5- suspect this is secondary to dilutional effect as she had received >1.5L of IV fluids -06/07 Hgb of 7.1- still asymptomatic but will order 1u PRBCs UTI Patient reports thick, brown vaginal discharge as well as purulent appearing urine and pneumaturia likely UTI. Patient also complaining of vaginal discharge. 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 Does not want surgery at this time. -Will f/u with urology as an outpatient ABILIO Mild elevation of BUN and creatinine from baseline. Patient reports normal urine output -Avoid nephrotoxic agents -Renal dosing are needed -Downtrending since admission Hypokalemia -Continue Klor-Con 10 milliequivalents p.o. daily -Continue to trend ProphylaxisLovenox Codefull PT/OT consulted (2) UTI (urinary tract infection): (3) ABILIO (acute kidney injury): (4) Anemia: (5) Acute hypokalemia: Admission and Anticipated Discharge Date Admission Date: May 29, 2023 Supervising Physician Co-Signing Physician Notes I personally examined the patient and verified all amin points of history and exam, discussed case, and agree with decision making with Dr Silverio no new complaints. Vitals noted, in general she is awake and alert pleasant no distress. HEENT normocephalic atraumatic mucous membranes moist. Breathing unlabored no accessory muscle use good effort. Skin shows no rashes no pallor or icterus. Neuro without focal deficits. Hypotension/ABILIO/UTI/chronic anemiafortunately does not appear to have any significant blood loss, I suspect anemia has largely been positional meets dilutional meets lab variation. That said with persistently lower numbers and low/borderline low BP - 1 unit PRBC. Continue antibiotics. Not septic/septic shock. Otherwise as above. Abdominal abscess finding on CT incidentally noted, surprisingly asymptomatic, Continue cefdinir/Flagyl. After discussion with patient and cristobal in the week -given that this is a new finding, even though she is asymptomatic, its very worrisome to have her go home without being sure that things are stable (especially given that it was not present just 4 days prior)during those discussions they both declined transfer for more urgent IR intervention - which was quite reasonable given how stable she is. for IR drainage (hopefully tomorrow) otherwise as above Subjective Patient seen and examined at bedside. No acute events reported overnight. She denies dizziness or lightheadedness. Review of Systems Review of Systems: As per above Physical Exam Constitutional: + thin; no acute distress Eyes: + anicteric sclerae; no conjunctival abnormality ENMT: Ears: no external ear abnormality Nose: no external nose abnormality Respiratory: normal respiratory effort, lungs clear to auscultation Cardiovascular: Rate/Rhythm: regular rate and regular rhythm Extremities: n o edema Gastrointestinal (Abdomen): Percussion/Palpation: abdomen soft; abdomen nontender Skin: no rashes, warm and dry Psychiatric: A+Ox3, euthymic affect Results & Data Results & Data Vital Signs (Past 12 Hours) Vital Signs Temp Pulse Resp BP Pulse Ox O2 Del Method 06/06/23 22:46 37.5 C 87 16 103/65 99 Room Air Resident Activity Tracking Resident Involvement: Resident Care Provided Care Provided: Adult Hospital Medicine
[2023-06-07] MEDS: allopurinoL 100 MG TAB PO SCH (09:08)
[2023-06-07] MEDS: POTASSIUM CHLORIDE 10 MEQ TABCR PO SCH (09:08)
[2023-06-07] MEDS: metroNIDAZOLE 500 MG TAB PO SCH ×3 (09:08→20:42)
[2023-06-07 12:38] LABS: Basophils # (auto) 0.02 K/uL (0.00-0.20); Basophils % (auto) 0.3 %; Eosinophils # (auto) 0.15 K/uL (0.00-0.50); Eosinophils % (auto) 2.3 %; Hematocrit (blood only) 22.6 % (37.0-47.0); Hemoglobin 7.1 g/dl (12.0-16.0); Immature Granulocytes # (auto) 0.06 K/uL (0.01-0.20); Immature Granulocytes % (auto) 0.9 %; Lymphocytes # (auto) 1.26 K/uL (1.20-3.40); Lymphocytes % (auto) 19.7 %; Mean Corpuscular Hemoglobin 28.2 pg (25.0-34.0); Mean Corpuscular Hgb Conc 31.4 g/dL (32.0-36.0); Mean Corpuscular Volume 89.7 fL (80.0-100.0); Mean Platelet Volume 11.8 fL (9.4-12.4); Monocytes # (auto) 0.51 K/uL (0.11-0.59); Neutrophils # (auto) 4.41 K/uL (1.40-6.50); Neutrophils % (auto) 68.8 %; Platelet Count 186 K/uL (130-400); RDW Coefficient of Variation 17.6 % (11.5-14.5); RDW Standard Deviation 55.4 fL (36.4-46.3); Red Blood Count 2.52 M/uL (4.20-5.40); White Blood Count 6.41 K/ul (4.8-10.8)
[2023-06-07 12:40] LABS: Albumin Globulin Ratio 0.8 (0.9-2); Albumin Level 2.5 gm/dl (3.4-5.0); BUN Creatinine Ratio 12.2 (10-20); Bilirubin,Total 2.4 mg/dl (0.2-1.0); Calcium 7.9 mg/dl (8.6-10.3); Creatinine Clr Calc Pharmacy 23.4 ml/min; Est GFR (African American) 36.6 ml/min; Est GFR (Non-African American) 31.5 ml/min; Globulin 3.3 gm/dl (2.5-4.0); Potassium 3.9 mmol/L (3.5-5.1); Total Protein 5.8 gm/dl (6.0-8.3)
[2023-06-07 13:00] LABS: RBC Morphology Unremarkable
[2023-06-07] MEDS ORDERED: SODIUM CHLORIDE 0.9% 250 ML IV PRN ×2 (16:13→18:59)
[2023-06-07] MEDS: CEFDINIR 300 MG CAP PO SCH (18:25)
--- NOTE | 2023-06-07 18:38 | Billing Data ---
Date of Service June 07, 2023 Coding Level of Care Code 14555 SUB INP/OBS CARE 3MIN
--- NOTE | 2023-06-07 18:59 | Hospitalist Progress Note ---
Date of Service June 07, 2023 Assessment & Plan (1) Mucinous adenocarcinoma of appendix: Plan: I was able to see the patient [id number] on June 05 and at that point she certainly seemed to be improved. I again raised with her the longer- term challenge of when and in fact whether to resume specific antineoplastic therapy for her appendiceal carcinoma. There has not been dramatic progression of her CT scans but unfortunately her CEA does indicate that the cancer is more active. Certainly as long as she has an active infection in the pelvis we should hold off on any immediate resumption of treatment as the accompanying immunosuppression could seriously undermine her ability to recover from that infection. Even if/as that infection comes under good control, however, her overall performance status, the specific significant ongoing anemia and the more general decline of organ function are all concerning for her ability to tolerate any aggressive dosing chemotherapy. Unfortunately, the persistence of her appendiceal carcinoma even after multiple previous rounds of chemotherapy suggest that it will be increasingly resistant. An important option will be to focus more on symptom management and short-term quality of life where it is not clear how much we can impact upon the natural history of the cancer going forward. Brooke seems to well understand all this and concretely understand that her prognosis has become much more challenging just in the last months. (2) Chronic ITP (idiopathic thrombocytopenia): Plan: Platelets remain in very good range and we can then definitely hold her romiplostim especially since she is not getting chemotherapy at this time Plan Focus should be exclusively on the current infection and optimizing his management as well as continued transfusion support as needed. There will be no plans for chemotherapy until we see that she has stabilized from that perspective. Even then, there will need to be some serious further conversation about what we can realistically accomplish with that and that what significant potential personal cost even including paradoxical shortening of lif e with major complications. I am away on vacation this week but will be periodically checking the electronic record. Do not foresee that any additional oncologic intervention beyond the transfusion parameters will be required and would encourage that her hospital management and ultimate discharge planning be centered on the pelvic abscess. I can be available through [facility] text for any issues that arise during her remaining hospitalization but otherwise once she is discharged I will arrange for outpatient follow-up and benito conversation about best overall approaches to her cancer diagnosis and care Admission and Anticipated Discharge Date Admission Date: May 29, 2023 Subjective Patient seems to be stabilizing medically though still transfusion dependent. 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
[2023-06-07] MEDS: LATANOPROST 0.005% OP SOLN 2.5 ML BTL OPB SCH (20:41)
[2023-06-08] MEDS: ENOXAPARIN INJ 30 MG/0.3 ML SYR SQ SCH (05:13)
--- NOTE | 2023-06-08 07:41 | Hospitalist Progress Note ---
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 Rectal stump origin left pelvis abscess extending into Iliopsoas -Incidental finding on CT abdomen 06/02. No abdominal pain; + nausea on 06/03. -General Surgery consulted -Recommend conservative management at this time while we are awaiting IR next week -Continue Cefdinir/Metronidazole -06/08: Per surgery/interventional radiology, will need INR <1.5 for procedure. Lovenox held. NPO at midnight and reassess tomorrow. Near Syncopal Episode -+ orthostatic vital signs, hypotensive, also found to be anemic -mildly elevated troponin trended to peak -No further episodes and overall feeling better, suspect her symptoms could be secondary to her chemotherapy treatments Normocytic Anemia -Patient with chronic baseline anemia. 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 Does not want surgery at this time. -Will f/u with urology as an outpatient ABILIO Creatinine 3 on admission. Baseline 1.5. -Resolved. Mucinous adenoca of appendix Chronic ITP - stable platelet count. - oncology following. CEA - 178 ProphylaxisLovenox held. SCDs PT/OT consulted (2) UTI (urinary tract infection): (3) ABILIO (acute kidney injury): (4) Anemia: (5) Acute hypokalemia: Admission and Anticipated Discharge Date Admission Date: May 29, 2023 Supervising Physician Co-Signing Physician Notes Resident Physician Supervision Note: I independently interviewed and examined the patient and verified the amin history and physical, reviewed labs and image studies and agree with resident findings and care plan. Subjective Patient seen and examined at bedside. No acute events reported overnight. Patient currently NPO while awaiting evaluation from interventional radiology. Denies any dizziness/lightheadedness. Review of Systems Review of Systems: As per above Physical Exam Constitutional: + thin; no acute distress Eyes: + anicteric sclerae; no conjunctival abnormality ENMT: Ears: no external ear abnormality Nose: no external nose abnormality Respiratory: normal respiratory effort, lungs clear to auscultation Cardiovascular: Rate/Rhythm: regular rate and regular rhythm Extremities: no edema Gastrointestinal (Abdomen): Percussion/Palpation: abdomen soft; abdomen nontender Skin: no rashes, warm and dry Psychiatric: A+Ox3, euthymic affect Results & Data Results & Data Vital Signs (Past 12 Hours) Vital Signs Temp Pulse Pulse Resp BP BP Pulse Ox 06/08/23 02:40 37.5 C 86 18 100/59 L 99 06/08/23 02:15 37.7 C H 84 18 101/62 99 06/08/23 01:15 37.6 C H 94 H 18 83/46 L 99 06/08/23 00:45 37.7 C H 91 H 18 79/39 L 99 06/08/23 00:45 37.7 C H 91 H 18 79/39 L 99 06/08/23 00:30 37.9 C H 91 H 18 78/40 L 98 06/08/23 00:14 36.7 C 92 H 18 88/48 L 100 06/07/23 22:00 37.6 C H 88 16 92/54 L 100 O2 Del Method O2 Flow Rate 06/08/23 02:40 0 06/08/23 02:15 0 06/08/23 01:15 0 06/08/23 00:45 0 06/08/23 00:45 06/08/23 00:30 06/08/23 00:14 06/07/23 22:00 Room Air Resident Activity Tracking Resident Involvement: Resident Care Provided Care Provided: Adult Hospital Medicine
[2023-06-08] MEDS: LACTATED RINGER'S 1,000 ML IV SCH ×2 (08:21→19:48)
[2023-06-08 08:25] LABS: Basophils # (auto) 0.03 K/uL (0.00-0.20); Basophils % (auto) 0.4 %; Eosinophils # (auto) 0.12 K/uL (0.00-0.50); Eosinophils % (auto) 1.6 %; Hematocrit (blood only) 25.9 % (37.0-47.0); Hemoglobin 8.4 g/dl (12.0-16.0); Immature Granulocytes # (auto) 0.09 K/uL (0.01-0.20); Immature Granulocytes % (auto) 1.2 %; Lymphocytes # (auto) 1.34 K/uL (1.20-3.40); Lymphocytes % (auto) 18.3 %; Mean Corpuscular Hemoglobin 28.7 pg (25.0-34.0); Mean Corpuscular Hgb Conc 32.4 g/dL (32.0-36.0); Mean Corpuscular Volume 88.4 fL (80.0-100.0); Mean Platelet Volume 11.6 fL (9.4-12.4); Monocytes # (auto) 0.62 K/uL (0.11-0.59); Monocytes % (auto) 8.5 %; Neutrophils # (auto) 5.11 K/uL (1.40-6.50); Platelet Count 181 K/uL (130-400); RDW Coefficient of Variation 16.8 % (11.5-14.5); RDW Standard Deviation 51.6 fL (36.4-46.3); Red Blood Count 2.93 M/uL (4.20-5.40); White Blood Count 7.31 K/ul (4.8-10.8)
[2023-06-08 08:54] LABS: BUN Creatinine Ratio 10.4 (10-20); Calcium 7.8 mg/dl (8.6-10.3); Est GFR (African American) 33.9 ml/min; Est GFR (Non-African American) 29.3 ml/min; Potassium 4.1 mmol/L (3.5-5.1)
--- NOTE | 2023-06-08 09:16 | Surgery Progress Note ---
I have seen and examined this patient with the surgical PA. I agree with the plan. Date of Service June 08, 2023 Assessment & Plan (1) Intra-abdominal abscess: Plan: Pt resting in bed Denies concerns at present time Will recheck Patients INR should be 1.5 or less for IR drain placement NPO at [place], may have diet until then VSS low grade temp 99.3 WBC 7 , Lovenox held this AM Patient seen and examined with Dr. Garza Admission and Anticipated Discharge Date Admission Date: May 29, 2023 Subjective Pt resting in bed Denies concerns at present time Review of Systems Constitutional: no fever, no chills and no sweats Respiratory: no dyspnea Cardiovascular: no chest pain Gastrointestinal: + abdominal pain (TTP LLQ ) and + belching; no nausea and no vomiting Physical Exam Physical Exam: alert awake Constitutional: cooperative and comfortable Respiratory: normal respiratory effort and able to speak in complete sentences; no respiratory distress Cardiovascular: Rate/Rhythm: regular rate hypotensive 87/40 Gastrointestinal (Abdomen): Inspection/Auscultation: + abdominal surgical drain present (ostomy bad draining as normal per pt ) Percussion/Palpation: + abdomen tender (LLQ) and abdomen soft; no guarding Results & Data Vital Signs (Past 12 Hours) Vital Signs Temp Pulse Pulse Resp BP BP BP 06/08/23 08:02 99.3 F 83 16 87/40 L 06/08/23 07:59 99.3 F 83 16 87/40 L 06/08/23 02:40 99.5 F 86 18 100/59 L 06/08/23 02:15 99.9 F H 84 18 101/62 06/08/23 01:15 99.7 F H 94 H 18 83/46 L 06/08/23 00:45 99.9 F H 91 H 18 79/39 L 06/08/23 00:45 99.9 F H 91 H 18 79/39 L 06/08/23 00:30 100.2 F H 91 H 18 78/40 L 06/08/23 00:14 98.1 F 92 H 18 88/48 L 06/07/23 22:00 99.7 F H 88 16 92/54 L Pulse Ox O2 Del Method O2 Flow Rate 06/08/23 08:02 99 Room Air 06/08/23 07:59 99 Room Air 06/08/23 02:40 99 0 06/08/23 02:15 99 0 06/08/23 01:15 99 0 06/08/23 00:45 99 0 06/08/23 00:45 99 06/08/23 00:30 98 06/08/23 00:14 100 06/07/23 22:00 100 Room Air PG Care Time/CCT Total # of Minutes Spent Total Time Spent with Patient: Total time spent is greater than 50% in coordination of care (as documented) at patient's floor/unit and/or counseling patient: Coding Level of Care Code 29421 SUB INP/OBS CARE 09/17MIN Diagnoses Intra-abdominal abscess K65.1
[2023-06-08 09:22] LABS: INR 1.9 (0.9-1.1); Prothrombin Time 19.5 Seconds (9.0-12.0)
[2023-06-08 10:20] LABS: Partial Thromboplastin Ratio 1.3; Partial Thromboplastin Time 37.2 Seconds (21.0-31.0)
[2023-06-08] MEDS: metroNIDAZOLE 500 MG TAB PO SCH ×3 (11:47→19:49)
[2023-06-08] MEDS: POTASSIUM CHLORIDE 10 MEQ TABCR PO SCH (11:48)
[2023-06-08] MEDS: allopurinoL 100 MG TAB PO SCH (11:48)
[2023-06-08] MEDS: CEFDINIR 300 MG CAP PO SCH (17:08)
[2023-06-08] MEDS: LATANOPROST 0.005% OP SOLN 2.5 ML BTL OPB SCH (19:49)
[2023-06-08] MEDS: ACETAMINOPHEN 325 MG TAB PO PRN (22:42)
--- NOTE | 2023-06-09 06:55 | Hospitalist Progress Note ---
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 Rectal stump origin left pelvis abscess extending into Iliopsoas -Incidental finding on CT abdomen 06/02. No abdominal pain; + nausea on 06/03. -General Surgery consulted -Recommend conservative management at this time while we are awaiting IR next week -Continue Cefdinir/Metronidazole -06/09: Per surgery/interventional radiology, will need INR <1.5 for procedure. Today INR is 2.4. Vitamin K ordered. -Temp to 38.8 overnight, patient asymptomatic. No abdominal pain -Will repeat CT abdomen/pelvis today to monitor abscess Auto-anticoagution -likely from poor nutrition and bowel pathology -vitamin K 5mgs po this am. recheck INR this afternoon. Near Syncopal Episode -+ orthostatic vital signs, hypotensive, also found to be anemic -mildly elevated troponin trended to peak -No further episodes and overall feeling better, suspect her symptoms could be secondary to her chemotherapy treatments Normocytic Anemia -Patient with chronic baseline anemia. 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 Does not want surgery at this time. -Will f/u with urology as an outpatient ABILIO Creatinine 3 on admission. Baseline 1.5. -Resolved. Mucinous adenoca of appendix Chronic ITP - stable platelet count. - oncology following. CEA - 178 ProphylaxisLovenox held. SCDs PT/OT consulted (2) UTI (urinary tract infection): (3) ABILIO (acute kidney injury): (4) Anemia: (5) Acute hypokalemia: Admission and Anticipated Discharge Date Admission Date: May 29, 2023 Supervising Physician Co-Signing Physician Notes Resident Physician Supervision Note: I independently interviewed and examined the patient and verified the amin history and physical, reviewed labs and image studies and agree with resident findings and care plan. Subjective Patient seen and examined at bedside. Patient had temp to 38.8C overnight, states she felt a bit cold overnight but no different otherwise. Review of Systems Review of Systems: As per above Physical Exam Constitutional: + thin; no acute distress Eyes: + anicteric sclerae; no conjunctival abnormality ENMT: Ears: no external ear abnormality Nose: no external nose abnormality Respiratory: normal respiratory effort, lungs clear to auscultation Cardiovascular: Rate/Rhythm: regular rate and regular rhythm Extremities: no edema Gastrointestinal (Abdomen): Percussion/Palpation: abdomen soft; abdomen nontender Skin: no rashes, warm and dry Psychiatric: A+Ox3, euthymic affect Results & Data Results & Data Vital Signs (Past 12 Hours) Vital Signs Temp Pulse Resp BP Pulse Ox O2 Del Method 06/09/23 00:47 37.4 C 06/08/23 22:34 38.8 C H 96 H 16 93/59 L 98 Room Air Resident Activity Tracking Resident Involvement: Resident Care Provided Care Provided: Adult Hospital Medicine
[2023-06-09 07:27] LABS: INR 2.4 (0.9-1.1); Partial Thromboplastin Ratio 1.5; Prothrombin Time 24.5 Seconds (9.0-12.0)
[2023-06-09 07:31] LABS: Partial Thromboplastin Time 41.3 Seconds (21.0-31.0)
[2023-06-09] MEDS ORDERED: PHYTONADIONE 5 MG TAB PO STA ×2 (08:27→19:30)
[2023-06-09] MEDS: metroNIDAZOLE 500 MG TAB PO SCH ×4 (09:46→20:31)
[2023-06-09] MEDS: POTASSIUM CHLORIDE 10 MEQ TABCR PO SCH ×2 (09:47→10:14)
[2023-06-09] MEDS: LACTATED RINGER'S 1,000 ML IV SCH ×2 (09:47→20:40)
[2023-06-09] MEDS: allopurinoL 100 MG TAB PO SCH ×2 (09:47→10:14)
--- NOTE | 2023-06-09 11:17 | Surgery Progress Note ---
This case was discussed with surgical PA. I agree with the plan Date of Service June 09, 2023 Assessment & Plan (1) Intra-abdominal abscess: Plan: Denies concerns at present time Lovenox held again this AM Patients INR this AM was 2.4 , should be 1.5 or less for IR drain placement. Ordered patient a diet Denies abdominal pain Will discuss case with Dr. Garza Admission and Anticipated Discharge Date Admission Date: May 29, 2023 Subjective Patient is sitting up in bed No complaint this AM Review of Systems Constitutional: no fever, no chills and no sweats Respiratory: no dyspnea Cardiovascular: no chest pain Gastrointestinal: + abdominal pain (TTP LLQ ) and + belching; no nausea and no vomiting Genitourinary: + vaginal discharge Physical Exam Physical Exam: alert awake Constitutional: cooperative and comfortable; no acute distress Respiratory: normal respiratory effort and able to speak in complete sentences; no respiratory distress Cardiovascular: Rate/Rhythm: regular rate Chest (Breasts): Chest: + vascular access device or port Gastrointestinal (Abdomen): Inspection/Auscultation: + abdominal surgical scar and + abdominal surgical drain present (ostomy bad draining as normal per pt ); abdomen not distended Percussion/Palpation: + abdomen tender (LLQ) and abdomen soft; no guarding and abdomen not firm Results & Data Vital Signs (Past 12 Hours) Vital Signs Temp Pulse Resp BP Pulse Ox O2 Del Method 06/09/23 07:39 98.2 F 81 18 93/51 L 99 Room Air 06/09/23 00:47 99.3 F PG Care Time/CCT Total # of Minutes Spent Total Time Spent with Patient: Total time spent is greater than 50% in coordination of care (as documented) at patient's floor/unit and/or counseling patient: Coding Level of Care Code 13666 SUB INP/OBS CARE 125MIN Diagnoses Intra-abdominal abscess K65.1
--- NOTE | 2023-06-09 13:12 | CT Scan Report ---
CT OF THE ABDOMEN AND PELVIS WITHOUT CONTRAST CLINICAL HISTORY: Known iliopsoas abscess. Appendiceal adenocarcinoma. COMPARISON STUDY: CT of the abdomen and pelvis June 02, 2023. TECHNIQUE: Axial images of the abdomen and pelvis were obtained without IV contrast. Images were revi ewed in the axial, sagittal, and coronal planes. Automated exposure control was utilized for the masha dy. A dose lowering technique was utilized adhering to the principles of ALARA. FINDINGS: No pneumatosis, free air or portal venous gas is present. Multiple metastatic implants nae in unchanged. Index implant along the falciform ligament measures 5.2 cm. Biliary ductal dilatation w ithin the left hepatic lobe is unchanged. Splenomegaly is again noted. There are stable postoperative findings following subtotal colectomy with right lower quadrant ostomy. There is no evidence for a b owel obstruction. There is trace abdominal ascites and mild anasarca. There is no right hydronephrosi s. Moderate left hydroureteronephrosis has developed since CT of June 02, 2023. There are no urete ral calculi. Pelvic calcifications favor phleboliths. Possible caliber change of the left ureter with in the upper pelvis appears to be at the known fluid collection which measures 8.4 x 4.5 cm. This col lection is unchanged in size. This collection extends into the left iliopsoas muscle. A component ext ends toward the bladder. Gas within the bladder has decreased. Gas within the collection has resolved . Probable communication with the rectal stump on axial image 213 is noted. No new fluid collections are present. IMPRESSION: 1. No change in size of a 8.4 x 4.5 cm fluid collection within the left pelvis which extends into the left iliopsoas muscle consistent with an abscess. This likely originates from the rectal stump and s uggests a leak at the rectal stump. 2. Component of the fluid collection extends toward the bladder. Gas within the bladder has decreased . This gas may be from recent catheterization. Underlying fistula cannot be excluded. 3. Interval development of moderate left hydroureteronephrosis. This may be due to mass effect upon t he left ureter by the fluid collection. 4. No evidence for a bowel obstruction. 5. Small amount of ascites. Anasarca. 6. No change in left hepatic lobe biliary ductal dilatation. ACT 112: Negative or not required by law. Electronically signed by: Dillan Buckley M.D. 06/09/2023 1:11 PM
[2023-06-09 15:29] LABS: INR 2.2 (0.9-1.1); Prothrombin Time 23.3 Seconds (9.0-12.0)
[2023-06-09] MEDS: CEFDINIR 300 MG CAP PO SCH (18:19)
[2023-06-09] MEDS: LATANOPROST 0.005% OP SOLN 2.5 ML BTL OPB SCH (20:32)
--- NOTE | 2023-06-10 07:45 | Hospitalist Progress Note ---
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 Rectal stump origin left pelvis abscess extending into Iliopsoas -Incidental finding on CT abdomen 06/02. No abdominal pain; + nausea on 06/03. -General Surgery consulted -Recommend conservative management at this time while we are awaiting IR next week -Continue Cefdinir/Metronidazole -06/10: Per surgery/interventional radiology, will need INR <1.5 for procedure. Today INR is 1.8, additional Vitamin K ordered. -Temp to 38 overnight -repeat CT - no change in size of fluid collection - extending close to bladder and possible compressing the ureter - leading to hydronephrosis -anticipate drainage tomorrow with lowering INR Auto-anticoagulation -likely from poor nutrition and bowel pathology -INR 1.8 -vitamin K 5mgs po this am. recheck INR this afternoon. Near Syncopal Episode -+ orthostatic vital signs, hypotensive, also found to be anemic -mildly elevated troponin trended to peak -No further episodes and overall feeling better, suspect her symptoms could be secondary to her chemotherapy treatments Normocytic Anemia -Patient with chronic baseline anemia. 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 Does not want surgery at this time. -Will f/u with urology as an outpatient ABILIO Creatinine 3 on admission. Baseline 1.5. -Resolved. Mucinous adenoca of appendix Chronic ITP - stable platelet count. - oncology following. CEA - 178 ProphylaxisLovenox held. SCDs PT/OT consulted (2) UTI (urinary tract infection): (3) ABILIO (acute kidney injury): (4) Anemia: (5) Acute hypokalemia: Admission and Anticipated Discharge Date Admission Date: May 29, 2023 Supervising Physician Co-Signing Physician Notes Resident Physician Supervision Note: I independently interviewed and examined the patient and verified the amin histor y and physical, reviewed labs and image studies and agree with resident findings and care plan. Subjective Patient seen and examined at bedside. She had a temp to 38C overnight, denies any symptoms including no abdominal pain, body aches or chills. Review of Systems Review of Systems: As per above Physical Exam Constitutional: + thin; no acute distress Eyes: + anicteric sclerae; no conjunctival abnormality ENMT: Ears: no external ear abnormality Nose: no external nose abnormality Respiratory: Normal respiratory effort, no increased work of breathing or accessory muscle use. Cardiovascular: Rate/Rhythm: regular rate Extremities: no edema Gastrointestinal (Abdomen): Percussion/Palpation: abdomen soft; abdomen nontender Skin: no rashes, warm and dry Psychiatric: A+Ox3, euthymic affect Results & Data Results & Data Vital Signs (Past 12 Hours) Vital Signs Temp Pulse Resp BP BP Pulse Ox O2 Del Method 06/10/23 07:36 36.8 C 86 16 89/39 L Room Air 06/10/23 00:05 Room Air 06/09/23 23:11 38.0 C H 86 20 111/68 98 Room Air Resident Activity Tracking Resident Involvement: Resident Care Provided Care Provided: Adult Hospital Medicine
[2023-06-10] MEDS: allopurinoL 100 MG TAB PO SCH (08:59)
[2023-06-10] MEDS: metroNIDAZOLE 500 MG TAB PO SCH ×3 (08:59→20:51)
[2023-06-10] MEDS: POTASSIUM CHLORIDE 10 MEQ TABCR PO SCH (08:59)
[2023-06-10] MEDS: LACTATED RINGER'S 1,000 ML IV SCH ×2 (09:08→20:51)
[2023-06-10 09:42] LABS: Basophils # (auto) 0.02 K/uL (0.00-0.20); Basophils % (auto) 0.3 %; Eosinophils # (auto) 0.08 K/uL (0.00-0.50); Eosinophils % (auto) 1.1 %; Hematocrit (blood only) 25.2 % (37.0-47.0); Hemoglobin 8.4 g/dl (12.0-16.0); Immature Granulocytes # (auto) 0.04 K/uL (0.01-0.20); Immature Granulocytes % (auto) 0.5 %; Lymphocytes # (auto) 1.31 K/uL (1.20-3.40); Lymphocytes % (auto) 17.9 %; Mean Corpuscular Hemoglobin 28.9 pg (25.0-34.0); Mean Corpuscular Hgb Conc 33.3 g/dL (32.0-36.0); Mean Corpuscular Volume 86.6 fL (80.0-100.0); Mean Platelet Volume 12.4 fL (9.4-12.4); Monocytes # (auto) 0.57 K/uL (0.11-0.59); Monocytes % (auto) 7.8 %; Neutrophils # (auto) 5.29 K/uL (1.40-6.50); Neutrophils % (auto) 72.4 %; Platelet Count 162 K/uL (130-400); RDW Coefficient of Variation 18.1 % (11.5-14.5); RDW Standard Deviation 53.5 fL (36.4-46.3); Red Blood Count 2.91 M/uL (4.20-5.40); White Blood Count 7.31 K/ul (4.8-10.8)
[2023-06-10 09:56] LABS: BUN Creatinine Ratio 9.9 (10-20); Calcium 7.8 mg/dl (8.6-10.3); Creatinine Clr Calc Pharmacy 23.6 ml/min; Est GFR (African American) 36.8 ml/min; Est GFR (Non-African American) 31.8 ml/min; Potassium 3.8 mmol/L (3.5-5.1)
[2023-06-10 10:06] LABS: INR 1.8 (0.9-1.1); Partial Thromboplastin Ratio 1.4; Partial Thromboplastin Time 38.4 Seconds (21.0-31.0); Prothrombin Time 18.8 Seconds (9.0-12.0)
--- NOTE | 2023-06-10 11:04 | Surgery Progress Note ---
This case was discussed with the surgical PA. I agree with the plan Date of Service June 10, 2023 Assessment & Plan (1) Intra-abdominal abscess: Plan: Denies concerns at present time Lovenox held again this AM Patients INR this AM was 1.8 , should be 1.5 or less for IR drain placement. Patient can eat and be NPO at [place] Denies abdominal pain Will continue to monitor Admission and Anticipated Discharge Date Admission Date: May 29, 2023 Subjective Patient reports feeling the same as yesterday No complaints Denies abdominal pain, had fever overnight however denies feeling feverish or sweats, temp WNL this AM Review of Systems Constitutional: no fever, no chills and no sweats Respiratory: no dyspnea Cardiovascular: no chest pain Gastrointestinal: + abdominal pain (TTP LLQ ) and + belching; no nausea and no vomiting Genitourinary: + vaginal discharge Physical Exam Physical Exam: alert awake Constitutional: cooperative and comfortable; no acute distress Respiratory: normal respiratory effort and able to speak in complete sentences; no respiratory distress Cardiovascular: Rate/Rhythm: regular rate Chest (Breasts): Chest: + vascular access device or port Gastrointestinal (Abdomen): Inspection/Auscultation: + abdominal surgical scar and + abdominal surgical drain present (ostomy bad draining as normal per pt ); abdomen not distended Percussion/Palpation: + abdomen tender (LLQ) and abdomen soft; no guarding and abdomen not firm Results & Data Vital Signs (Past 12 Hours) Vital Signs Temp Pulse Resp BP BP Pulse Ox O2 Del Method 06/10/23 10:19 97.7 F 83 16 93/54 L 100 Room Air 06/10/23 07:36 98.2 F 86 16 89/39 L Room Air 06/10/23 00:05 Room Air 06/09/23 23:11 100.4 F H 86 20 111/68 98 Room Air PG Care Time/CCT Total # of Minutes Spent Total Time Spent with Patient: Total time spent is greater than 50% in coordination of care (as documented) at patient's floor/unit and/or counseling patient: Coding Level of Care Code 27322 SUB INP/OBS CARE 1/25MIN Diagnoses Intra-abdominal abscess K65.1
[2023-06-10] MEDS ORDERED: PHYTONADIONE 5 MG TAB PO STA (11:10)
[2023-06-10] MEDS: LATANOPROST 0.005% OP SOLN 2.5 ML BTL OPB SCH (20:51)
[2023-06-11 06:19] LABS: INR 1.9 (0.9-1.1); Partial Thromboplastin Ratio 1.4; Prothrombin Time 19.5 Seconds (9.0-12.0)
--- NOTE | 2023-06-11 07:42 | Hospitalist Progress Note ---
Date of Service June 11, 2023 Assessment & Plan (1) Near syncope: Plan: Brooke Vasquez is a 62-year-old female with 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 Rectal stump origin left pelvis abscess extending into Iliopsoas -Incidental finding on CT abdomen 06/02. No abdominal pain; + nausea on 06/03. -General Surgery consulted -Recommend conservative management at this time while we are awaiting IR next week -Continue Cefdinir/Metronidazole -repeat CT - no change in size of fluid collection - extending close to bladder and possible compressing the ureter - leading to hydronephrosis -IR drain placed today Auto-anticoagulation -likely from poor nutrition and bowel pathology -INR 1.9 today, ordered 2 units of FFP to proceed with IR procedure; vitamin k 10 mgs dose -Follow INR Near Syncopal Episode -+ orthostatic vital signs, hypotensive, also found to be anemic -mildly elevated troponin trended to peak -No further episodes and overall feeling better, suspect her symptoms could be secondary to her chemotherapy treatments Normocytic Anemia -Patient with chronic baseline anemia. 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 Does not want surgery at this time. -Will f/u with urology as an outpatient ABILIO Creatinine 3 on admission. Baseline 1.5. -Resolved. Mucinous adenoca of appendix Chronic ITP - stable platelet count. - oncology following. CEA - 178 ProphylaxisLovenox held - resume in am. SCDs Regular diet Ostomy draining PT/OT consulted (2) UTI (urinary tract infection): (3) ABILIO (acute kidney injury): (4) Anemia: (5) Acute hypokalemia: Admission and Anticipated Discharge Date Admission Date: May 29, 2023 Supervising Physician Co-Signing Physician Notes Resident Physician Supervision Note: I independently interviewed and examined the patient and verified the amin history and physical, reviewed labs and image studies and agree with resident findings and care plan. Subjective Patient seen and examined at bedside. No acute events reported overnight. Patient denies any current pain, lightheadedness or dizziness. Currently NPO in anticipation of procedure. Review of Systems Review of Systems: As per above Physical Exam Constitutional: + thin; no acute distress Eyes: + anicteric sclerae; no conjunctival abnormality ENMT: Ears: no external ear abnormality Nose: no external nose abnormality Respiratory: normal respiratory effort, lungs clear to auscultation Cardiovascular: Rate/Rhythm: regular rate and regular rhythm Extremities: no edema Gastrointestinal (Abdomen): Percussion/Palpation: abdomen soft; abdomen nontender Skin: no rashes, warm and dry Psychiatric: A+Ox3, euthymic affect Results & Data Results & Data Vital Signs (Past 12 Hours) Vital Signs O2 Del Method 06/10/23 21:00 Room Air Resident Activity Tracking Resident Involvement: Resident Care Provided Care Provided: Adult Hospital Medicine
[2023-06-11] MEDS ORDERED: PHYTONADIONE 5 MG TAB PO STA (08:19)
[2023-06-11] MEDS ORDERED: SODIUM CHLORIDE 0.9% 250 ML IV PRN (08:31)
[2023-06-11] MEDS: metroNIDAZOLE 500 MG TAB PO SCH ×3 (09:11→20:31)
[2023-06-11] MEDS: allopurinoL 100 MG TAB PO SCH (09:11)
[2023-06-11] MEDS: LACTATED RINGER'S 1,000 ML IV SCH (09:21)
--- NOTE | 2023-06-11 11:28 | Surgery Progress Note ---
This was discussed with the surgical PA Date of Service June 11, 2023 Assessment & Plan (1) Intra-abdominal abscess: Plan: Pt denies any new complaints / abdominal pain Ostomy functioning Patients INR 1.8 this AM despite being given Phytonadione the past few days patient receiving FFP States she was told she will go for the IR drain this afternoon Will continue to monitor Admission and Anticipated Discharge Date Admission Date: May 29, 2023 Subjective pt resting in bed offers no complaints Review of Systems Constitutional: no fever, no chills and no sweats feels cold Respiratory: no cough and no dyspnea Cardiovascular: no chest pain Gastrointestinal: no abdominal pain, no nausea and no vomiting ostomy functioning Genitourinary: no problem reported Physical Exam Physical Exam: alert awake pleasant Constitutional: cooperative and comfortable; no acute distress Respiratory: normal respiratory effort and able to speak in complete sentences; no respiratory distress Cardiovascular: Rate/Rhythm: regular rate Chest (Breasts): Additional Comments: mediport Gastrointestinal (Abdomen): Percussion/Palpation: abdomen soft; no guarding Results & Data Vital Signs (Past 12 Hours) Vital Signs Temp Pulse Pulse Resp BP BP Pulse Ox 06/11/23 10:30 97.9 F 78 20 101/61 99 06/11/23 10:11 98.2 F 78 16 103/64 99 06/11/23 10:00 98.6 F 79 18 107/65 100 06/11/23 09:42 98.8 F 73 18 97/59 L 100 06/11/23 08:15 98.1 F 90 16 89/48 L 99 O2 Del Method 06/11/23 10:30 06/11/23 10:11 06/11/23 10:00 06/11/23 09:42 06/11/23 08:15 Room Air PG Care Time/CCT Total # of Minutes Spent Total Time Spent with Patient: Total time spent is greater than 50% in coordination of care (as documented) at patient's floor/unit and/or counseling patient: Coding Level of Care Code 21071 SUB INP/OBS CARE 1/25MIN Diagnoses Intra-abdominal abscess K65.1
[2023-06-11] MEDS ORDERED: MoRPHine SULFATE 4 MG/ML 1 ML CARP\\VIAL ONE (11:45)
[2023-06-11] MEDS: POTASSIUM CHLORIDE 10 MEQ TABCR PO SCH (13:11)
[2023-06-11] MEDS: CEFDINIR 300 MG CAP PO SCH (13:12)
--- NOTE | 2023-06-11 14:44 | CT Scan Report ---
CT-guided abdominal abscess drain placement INDICATION: Left lower quadrant abdominal fluid collection PROCEDURE: Procedure and risks were explained. Informed consent was obtained. A final timeout was com pleted. The patient was supine prone on the CT exam table. The left lower quadrant was prepped and dr aped in sterile fashion. 1% buffered lidocaine was utilized for skin anesthesia. Utilizing CT guidance, an 18-gauge Chiba needle was advanced into the left lower quadrant fluid colle ction. A 0.035 Amplatz wire was introduced through the Chiba needle and exchanged for a 10 Macedonian Revision3 pigtail catheter. Approximately 20 mL of purulent appearing fluid was removed and a portion was sent to the lab for analysis. The catheter was then placed to suction bag drainage and sutured to the skin with 2-0 silk. The patient tolerated the procedure well. Post CT shows adequate pigtail placeme nt without immediate complication. Vital signs will be monitored postprocedure. IMPRESSION: Abdominal abscess drain placement as above. Performed, dictated, and signed by Akash Bird PA-C; to be co-signed by Dr. Jame Sotomayor. Electronically signed by: Jame Sotomayor M.D. 06/11/2023 2:50 PM
[2023-06-11] MEDS: ACETAMINOPHEN 325 MG TAB PO PRN (19:25)
[2023-06-11] MEDS: LATANOPROST 0.005% OP SOLN 2.5 ML BTL OPB SCH (20:31)
[2023-06-12] MEDS ORDERED: CALCIUM CARBONATE 500 MG CHEWABLE TAB PO PRN (00:25)
[2023-06-12] MEDS: LACTATED RINGER'S 1,000 ML IV SCH ×2 (00:50→13:24)
--- NOTE | 2023-06-12 07:33 | Hospitalist Progress Note ---
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 Rectal stump origin left pelvis abscess extending into Iliopsoas -Incidental finding on CT abdomen 06/02. No abdominal pain; + nausea on 06/03. -General Surgery consulted -Recommend conservative management -repeat CT - no change in size of fluid collection - extending close to bladder and possible compressing the ureter - leading to hydronephrosis -IR drain placed yesterday (06/11), will follow with general surgery as outpatient for drain removal -Continue Cefdinir/Metronidazole - await fluid culture results. Auto-anticoagulation -likely from poor nutrition and bowel pathology -INR 1.5 after multiple vitamin K doses and 2 FFP Near Syncopal Episode -+ orthostatic vital signs, hypotensive, also found to be anemic -mildly elevated troponin trended to peak -No further episodes and overall feeling better, suspect her symptoms could be secondary to her chemotherapy treatments Normocytic Anemia -Patient with chronic baseline anemia. -06/07 Hgb of 7.1- s/p 1u PRBCs -h/h stable -Repeat CBC, INR ordered for this afternoon. 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 Does not want surgery at this time. -Will f/u with urology as an outpatient ABILIO Creatinine 3 on admission. Baseline 1.5. -Resolved. Mucinous adenoca of appendix Chronic ITP -stable platelet count. -oncology following. CEA - 178 ProphylaxisLovenox, SCDs Regular diet Ostomy draining PT/OT consulted (2) UTI (urinary tract infection): (3) ABILIO (acute kidney injury): (4) Anemia: (5) Acute hypokalemia: Admission and Anticipated Discharge Date Admission Date: May 29, 2023 Supervising Physician Co-Signing Physician Notes Resident Physician Supervision Note: I independently interviewed and examined the patient and verified the amin history and physical, reviewed labs and image studies and agree with resident findings and care plan. Subjective Patient seen and examined at bedside. Had IR procedure with drain placement yesterday, notes some pain around drain site. Also had some reflux/heart burn yesterday evening. Otherwise feeling well. Review of Systems Review of Systems: As per above Physical Exam Constitutional: + thin; no acute distress Eyes: + anicteric sclerae; no conjunctival abnormality ENMT: Ears: no external ear abnormality Nose: no external nose abnormality Respiratory: normal respiratory effort, lungs clear to auscultation Cardiovascular: Rate/Rhythm: regular rate and regular rhythm Extremities: no edema Gastrointestinal (Abdomen): Percussion/Palpation: abdomen soft; abdomen nontender Tenderness around drain site admission Skin: no rashes, warm and dry Psychiatric: A+Ox3, euthymic affect Results & Data Results & Data Vital Signs (Past 12 Hours) Vital Signs O2 Del Method 06/11/23 19:50 Room Air Resident Activity Tracking Resident Involvement: Resident Care Provided Care Provided: Adult Hospital Medicine
[2023-06-12] MEDS: allopurinoL 100 MG TAB PO SCH (09:09)
[2023-06-12] MEDS: metroNIDAZOLE 500 MG TAB PO SCH ×2 (09:09→16:27)
[2023-06-12] MEDS: POTASSIUM CHLORIDE 10 MEQ TABCR PO SCH (09:19)
--- NOTE | 2023-06-12 10:31 | Surgery Progress Note ---
I agree with this plan Date of Service June 12, 2023 Assessment & Plan (1) Intra-abdominal abscess: Plan: Patient reports she is doing well Had IR drain placed yesterday LLQ draining purulent gaytan colored fluid Culture was sent from IR results pending Denies abd pain, fever, chills, sob, cp, tolerating diet General surgery will sign off at this time please call with questions or concerns Admission and Anticipated Discharge Date Admission Date: May 29, 2023 Subjective Patient reports she is doing well Had IR drain placed yesterday Denies abd pain, fever, chills, sob, cp tolerating diet Review of Systems Constitutional: + sweats; no fever and no chills Respiratory: no dyspnea Cardiovascular: no chest pain Gastrointestinal: + belching; no abdominal pain, no nausea and no vomiting functioning ostomy Physical Exam Physical Exam: alert oriented Constitutional: cooperative and comfortable; no acute distress Respiratory: normal respiratory effort and able to speak in complete sentences; no respiratory distress Cardiovascular: Rate/Rhythm: regular rate Gastrointestinal (Abdomen): Inspection/Auscultation: + abdominal surgical drain present (IR drain LLQ) Percussion/Palpation: abdomen soft; no guarding Results & Data Vital Signs (Past 12 Hours) Vital Signs Temp Pulse Resp BP Pulse Ox O2 Del Method 06/12/23 08:24 98.4 F 84 16 91/47 L 99 Room Air PG Care Time/CCT Total # of Minutes Spent Total Time Spent with Patient: Total time spent is greater than 50% in coordination of care (as documented) at patient's floor/unit and/or counseling patient: Coding Level of Care Code 71216 SUB INP/OBS CARE 25MIN Diagnoses Intra-abdominal abscess K65.1
[2023-06-12] MEDS: CEFDINIR 300 MG CAP PO SCH (11:53)
[2023-06-12 15:02] LABS: Basophils # (auto) 0.03 K/uL (0.00-0.20); Basophils % (auto) 0.5 %; Eosinophils # (auto) 0.09 K/uL (0.00-0.50); Eosinophils % (auto) 1.4 %; Hematocrit (blood only) 26.7 % (37.0-47.0); Hemoglobin 8.6 g/dl (12.0-16.0); Immature Granulocytes # (auto) 0.04 K/uL (0.01-0.20); Immature Granulocytes % (auto) 0.6 %; Lymphocytes # (auto) 0.73 K/uL (1.20-3.40); Mean Corpuscular Hemoglobin 28.8 pg (25.0-34.0); Mean Corpuscular Hgb Conc 32.2 g/dL (32.0-36.0); Mean Corpuscular Volume 89.3 fL (80.0-100.0); Mean Platelet Volume 10.9 fL (9.4-12.4); Monocytes # (auto) 0.38 K/uL (0.11-0.59); Monocytes % (auto) 5.7 %; Neutrophils # (auto) 5.36 K/uL (1.40-6.50); Neutrophils % (auto) 80.8 %; Platelet Count 126 K/uL (130-400); RDW Standard Deviation 58.4 fL (36.4-46.3); Red Blood Count 2.99 M/uL (4.20-5.40); White Blood Count 6.63 K/ul (4.8-10.8)
[2023-06-12 15:14] LABS: BUN Creatinine Ratio 11.8 (10-20); Calcium 7.8 mg/dl (8.6-10.3); Creatinine Clr Calc Pharmacy 26.5 ml/min; Est GFR (African American) 42.4 ml/min; Est GFR (Non-African American) 36.6 ml/min; Potassium 3.6 mmol/L (3.5-5.1)
[2023-06-12 16:48] LABS: INR 1.5 (0.9-1.1); Prothrombin Time 16.1 Seconds (9.0-12.0)
[2023-06-12] MEDS: HEPARIN 100 UNIT/ML 5ML FLUSH FLUSH PRN (17:46)
[2023-06-12] MEDS: LATANOPROST 0.005% OP SOLN 2.5 ML BTL OPB SCH (20:22)
[2023-06-13] MEDS: ENOXAPARIN INJ 30 MG/0.3 ML SYR SQ SCH ×2 (04:38→04:59)
--- NOTE | 2023-06-13 07:01 | Discharge Summary ---
Date of Service June 13, 2023 Admission HPI Per Admitting Provider Brooke Vasquez is a pleasant 62yo female with history of appendiceal carcinoma with pseudomyxoma peritonei on chemotherapy, ITP, anemia, CKD presenting after near syncopal event. Patient follows with Dr. Henderson and is currently being treated with chemotherapy. 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 She sat down and the sensation passed. She denies chest pain, palpitations, cough, shortness of breath, focal numbness/tingling/weakness. She also reports several days of thick, brown vaginal discharge as well as cloudy, purulent appearing urine and passing air. She was recently diagnosed with a UTI and was treated with Bactrim which was discontinued due to some renal compromise. She then completed treatment with Macrobid. Patient denies fever, chills, chest pain, cough, shortness of breath. Denies abdominal pain, nausea, vomiting. She has an colostomy in place with normal output. She does admit to occasional dizziness as well as dysuria. Otherwise no additional complaints. In the ER, she is afebrile, blood pressure borderline low. Normal respiratory status with adequate oxygenation on room air ER course: Normal saline x1500 mL Potassium 80 mEq p.o. Zosyn 4.5 g Admission Exam Per Admitting Provider General: Thin female patient resting comfortably, NAD, non-toxic in appearance, AA&O x 4 Skin: warm, dry, intact, no rashes or lesions HEENT: NC/AT, PERRL, EOMI, anicteric sclera, conjunctiva without injection, external ear normal to inspection and nontender, nares patent, moist mucus membranes, dentition intact, no oropharyngeal lesions, neck supple, trachea midline, no LAD, no thyromegaly, no JVD Heart: +S1/S2, regular, no m/r/g, port present chest wall, nontender, no erythema Lungs: equal air entry bilaterally, no rales/rhonchi/wheezes Abd: +BS, soft, NT/ND, no masses/organomegaly/ascites, colostomy Ext: warm, 2+ pulses in UE/LE bilaterally, no clubbing/cyanosis or edema Neuro: nonfocal, patient AA&O x 4, speech intact, no facial droop, moving all extremities on command with equal strength 5/5 Principal Diagnosis Intra-abdominal abscess Discharge Exam Constitutional WD/WN, vitals as above Eyes PERRL, conjunctivae normal, anicteric sclerae ENMT external ear and nose normal, oropharynx normal Respiratory normal respiratory effort, lungs clear to auscultation Cardiovascular RRR, no murmur, no edema Gastrointestinal (Abdomen) normal bowel sounds, soft, nontender, no hepatosplenomegaly Abdominal drain present left lower quadrant with gaytan-colored fluid discharge Musculoskeletal no cyanosis or clubbing, extremities motor strength 5/5 Skin no rashes, warm and dry Discharge Data Allergies Allergy/AdvReac Type Severity Reaction Status Date / Time pineapple Allergy Severe anaphylaxis Verified 05/29/23 21:42 cantaloupe Allergy Intermediate Hives Verified 05/29/23 21:42 Gregory And Derivatives Allergy Intermediate hives Verified 05/29/23 21:42 clarithromycin Allergy Intermediate hives Verified 05/29/23 21:42 naproxen Allergy Intermediate hives Verified 05/29/23 21:42 Penicillins Allergy Intermediate hives Verified 05/29/23 21:42 tomato Allergy Intermediate hives, Verified 05/29/23 21:42 throat tightness latex Allergy Mild rash Verified 05/29/23 21:42 lemon Allergy Verified 05/30/23 12:43 lemon oil Allergy Verified 05/30/23 12:43 shishmaref ira Allergy Verified 05/30/23 13:03 orange Allergy Verified 05/30/23 12:43 orange (food color) Allergy Verified 05/30/23 12:43 orange flavor Allergy Verified 05/30/23 12:43 orange juice Allergy Verified 05/30/23 12:43 Consultations 05/29/23 21:31 ED Decision to Admit Stat 05/30/23 13:30 Consult Gynecology Routine 05/30/23 20:58 Consult Urology Routine 06/02/23 13:37 Consult General Surgery Routine 06/03/23 08:36 Consult Hematology Routine Ordered Studies 05/29/23 20:06 CT head/brain wo con Stat 05/29/23 20:32 CT abd pelvis wo con Stat 06/02/23 10:30 CT Abd and Pelvis [CT abd pelvis wo con] Routine CT chest without contrast [CT chest diagnostic wo con] Routine 06/09/23 11:04 CT Abd and Pelvis [CT abd pelvis wo con] Routine 06/11/23 11:35 IR AD peritoneal/retro w/gdnce Routine Hospital Course (1) Near syncope: Brooke Vasquez is a 62-year-old female with 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 Rectal stump origin left pelvis abscess extending into Iliopsoas -Incidental finding on CT abdomen 06/02. No abdominal pain; + nausea on 06/03. -General Surgery consulted -Recommend conservative management -repeat CT - no change in size of fluid collection - extending close to bladder and possible compressing the ureter - leading to hydronephrosis -IR drain placed (06/11), will follow with general surgery as outpatient for drain removal -Continue Cefdinir/Metronidazole -fluid cultures were Gram stain negative, did show few Nargis albicans with no sensitivities - likely contaminant. -We will continue with antibiotics 4 days post discharge. -Should follow-up within 1 week with PCP. -Should have CBC with PCP at hospital follow-up. Auto-anticoagulation -likely from poor nutrition and bowel pathology -INR 1.5 after multiple vitamin K doses and 2 FFP. -Should have repeat INR checked at hospital discharge follow-up appointment with PCP. Near Syncopal Episode -+ orthostatic vital signs, hypotensive, also found to be anemic -mildly elevated troponin trended to peak -No further episodes and overall feeling better, suspect her symptoms could be secondary to her chemotherapy treatments Normocytic Anemia -Patient with chronic baseline anemia. 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 Does not want surgery at this time. -Will f/u with urology as an outpatient ABILIO -Creatinine 3 on admission. Baseline 1.5. -Resolved. Mucinous adenoca of appendix Chronic ITP -stable platelet count. -oncology consulted - to continue outpatient follow up. CEA level checked - 178 (2) UTI (urinary tract infection): (3) ABILIO (acute kidney injury): (4) Anemia: (5) Acute hypokalemia: (6) Intra-abdominal abscess: Total Time Total Time Spent Total Time Spent (In Minutes): Please refer to attendings attestation Discharge Plan Discharge Items Patient Disposition: Home - Self-Care Reason For Visit: UTI, NEAR SYNCOPE Discharge Diagnosis: Intra-abdominal abscess Activity: Per Instructions section Non-emergency contact: Primary Care Provider and Surgeon Call non-emergency contact if: you have any medication questions, your pain is concerning for you, your temperature is above 101.5, your wound has increased redness, your wound has increased drainage and your wound pain has increased Follow-up/Referrals: Ney Chisholm [Primary Care Provider] - Winter Garza, [Physician] - (Call office to be seen in two weeks for drain removal ) Diet: Regular Addtl Attending Provider Instructions: You were admitted to the hospital for intra-abdominal abscess. You were treated with percutaneous drainage and antibiotics. A discharge summary will be sent to your primary care physician to ensure continuity of care. Please bring this discharge summary with you to your next office appointment so that your provider can review it at that time. Follow-up appointments: * Make a follow-up appointment with your PCP within the next week. It is very important that you follow up with them shortly after discharge from the hospital. * Make an appointment with surgery to have your drain removed within 1-2 weeks. Their number is [phone]. It is very important that you make this appointment and attend this appointment. * Keep all your follow-up appointments as already scheduled. If you cannot make an appointment, notify your provider. Medications: Your medication list has been reviewed and reconciled upon discharge to ensure accuracy and continuity of care. An updated list of all your medications is included with your hospital discharge paperwork. Please review this list closely, and make note of any changes. * We sent a new medication called cefdinir to your pharmacy. Take cefdinir 300 mg once a day for the next 4 days. * We sent a new medication called metronidazole to your pharmacy. Take metronidazole 500 mg 3 times a day for the next 4 days. * If you have any issues filling these prescriptions, please call [phone] and ask to leave a message for Dr. Lima. * Take your medications as instructed; do not skip a dose of your medicines. Make sure all of your doctors know every medicine you are taking (including [id number] medicines, vitamins, and supplements). Call your primary care provider before taking any new medicines (including over- the-counter medicines, vitamins, and supplements), because some of these may interact with your current medications, or may make your symptoms worse. Tell your primary care provider if you cannot afford your medications. CONTACT YOUR PRIMARY CARE PROVIDER if you experience any of the following: * Worsening of symptoms * Fever, chills, or fatigue * Difficulty following your treatment plan, or difficulty taking medications CALL 911 OR GO TO THE EMERGENCY DEPARTMENT if you experience any of the foll owing: * Sudden, severe abdominal pain or nausea/vomiting * Severe chest pain, or chest pain that radiates (moves) to your jaw or arm * Sudden, severe shortness of breath or difficulty breathing Thank you for allowing us to participate in your care. Pending Studies at Discharge: No Stand-Alone Forms: [employer], Smoking Cessation Medications and DC Order Prescriptions: New cefdinir 300 mg Capsule 300 mg PO Q24H 4 Days Qty: 4 0RF metronidazole 500 mg tablet 500 mg PO TID 4 Days Qty: 12 0RF Continued multivitamin Tablet 1 tab PO QAM latanoprost [Xalatan] 0.005 % Drops 1 drp OPB HS brimonidine [Alphagan P] 0.1 % Drops 1 drp OPB TID cholecalciferol (vitamin D3) [Vitamin D3] 2,000 unit Capsule 2,000 unit PO QAM ondansetron HCl 8 mg Tablet 8 mg PO Q8H PRN (Reason: Nausea) prochlorperazine maleate 10 mg tablet 10 mg PO Q6 PRN (Reason: Nausea) potassium chloride 10 mEq capsule, extended release 10 meq PO DAILY allopurinol 100 mg tablet 200 mg PO DAILY Discharge Orders: Discharge Order (Routine); Ordered 06/13/23 Ordered By: Jerald Lima Admission Data Admit Date/Time: 05/29/23 22:40 Attending Provider: Kat Gaming Admit Provider: Lissa Waldrop Primary Care Provider: Ney Chisholm Other Providers: Lissa Waldrop ; Naz Mcbride ; Jax Landis ; Martin Fierro ; Shashank,Alfonso R Other Interventions: Discharge Summary Assessment (RN) Last Done: 06/13/23 17:17 Supervising Physician Co-Signing Physician Notes Resident Physician Supervision Note: I independently interviewed and examined the patient and verified the amin history and physical, reviewed labs and image studies and agree with resident findings and care plan. Resident Activity Tracking Resident Involvement: Resident Care Provided Care Provided: Adult Hospital Medicine
[2023-06-13] MEDS: allopurinoL 100 MG TAB PO SCH (08:39)
[2023-06-13] MEDS: POTASSIUM CHLORIDE 10 MEQ TABCR PO SCH (08:41)
[2023-06-13] MEDS: CEFDINIR 300 MG CAP PO SCH (12:10)
[2023-06-13] MEDS: HEPARIN 100 UNIT/ML 5ML FLUSH FLUSH PRN (18:14)
== END 2023-06-13 19:08 | disposition home or self-care (01) | DRG 372 ==
LOC: ED 19:50 → 2N 22:40 → SUATTDRO 22:40 → 2N 05-30 00:25 → 3W 06-09 22:57

== ENCOUNTER 2023-07-22 18:34 | Inpatient (IN) ==
--- NOTE | 2023-07-22 18:46 | ED Triage Note ---
Date of Service July 22, 2023 History of Present Illness This patient was briefly evaluated while in triage. An abbreviated physical exam was performed. This patient is a 63-year-old Female who presents to the ED for evaluation of a displaced drainage bag from an abscess on her left lower abdomen. Patient follows with Dr. Bird. I&D procedure was performed in the middle of May. Patient has a history of stage IV cancer of the colon. Patient denies any pain. Physical Exam CONSTITUTIONAL: Healthy and well nourished. GASTROINTESTINAL: Bowel sounds present in all quadrants. Abdomen is soft and nontender. Patient has multiple layers of clothing on, therefore wound evaluation cannot be performed. INTEGUMENTARY: No rash or other significant dermatologic conditions noted. HEMATOLOGIC: No ecchymosis or petechiae. PSYCHIATRIC: Positive affect. NEUROLOGIC: No focal neurologic deficits noted. Initial orders for labs and / or imaging were placed and patient was placed in the waiting area until a bed is available. Please see further documentation for the full ED course.
[2023-07-22 21:06] LABS: Basophils # (auto) 0.03 K/uL (0.00-0.20); Basophils % (auto) 0.3 %; Eosinophils # (auto) 0.04 K/uL (0.00-0.50); Eosinophils % (auto) 0.3 %; Hematocrit (blood only) 24.7 % (37.0-47.0); Hemoglobin 7.9 g/dl (12.0-16.0); Immature Granulocytes % (auto) 0.8 %; Lymphocytes % (auto) 10.9 %; Mean Corpuscular Hemoglobin 28.8 pg (25.0-34.0); Mean Corpuscular Volume 90.1 fL (80.0-100.0); Mean Platelet Volume 10.8 fL (9.4-12.4); Monocytes # (auto) 0.95 K/uL (0.11-0.59); Monocytes % (auto) 7.9 %; Neutrophils # (auto) 9.55 K/uL (1.40-6.50); Neutrophils % (auto) 79.8 %; Platelet Count 211 K/uL (130-400); RDW Coefficient of Variation 17.4 % (11.5-14.5); RDW Standard Deviation 57.4 fL (36.4-46.3); Red Blood Count 2.74 M/uL (4.20-5.40); White Blood Count 11.97 K/ul (4.8-10.8)
[2023-07-22 21:20] LABS: Albumin Globulin Ratio 0.8 (0.9-2); Albumin Level 3.3 gm/dl (3.4-5.0); BUN Creatinine Ratio 15.3 (10-20); Bilirubin,Total 4.1 mg/dl (0.2-1.0); Calcium 8.6 mg/dl (8.6-10.3); Est GFR (African American) 13.7 ml/min; Est GFR (Non-African American) 11.8 ml/min; Globulin 4.2 gm/dl (2.5-4.0); Potassium 3.4 mmol/L (3.5-5.1); Total Protein 7.5 gm/dl (6.0-8.3)
[2023-07-22 21:27] LABS: Anisocytosis Present; Polychromasia 1+
[2023-07-22 21:40] LABS: Appearance Urine Turbid (Clear); Color Urine Red; Specific Gravity Urine 1.022 (1.000-1.030)
[2023-07-22 21:45] LABS: Bacteria Urine 4+ (Negative); Epithelial Cell Urine 0-5 /lpf (0-5); Hyaline Casts Urine 0-5 /lpf (0-5); RBC Urine >30 /hpf (0-4); WBC Urine >30 /hpf (0-5)
[2023-07-22] MEDS ORDERED: SODIUM CHLORIDE 0.9% 1,000 ML IV ONE (22:42)
--- NOTE | 2023-07-22 22:42 | Emergency Department Note ---
Impression & Plan Abscess ADMIT ED Provider Note HPI: History obtained from patient. The patient is a 63-year-old female with history of adenocarcinoma of the appendix, status post ileostomy placement, history of intra-abdominal abscess from rectal stump, status post IR drainage on 06/11 here at [facility]. Patient presented to the emergency department today for evaluation after her drain fell out of the left side of her abdomen. Patient states that she had surveillance CT imaging done this morning that showed enlargement of the abscess. Patient went to her nephrology appointment and the drain was noted to be falling out of place. Patient was then referred to the general surgery office of Dr. Lisa Richardson who she is following with for drain management, when evaluated there the drain was apparently out of place and suture had been undone and therefore the drain was pulled. Patient states the nephrology office also got in touch with interventional radiology, Akash Bird, and the patient was advised to come to the emergency department to be assessed. Patient denies any current abdominal pain, denies any nausea or vomiting, on arrival here to the ED the patient is hemodynamically stable, she is in no acute distress on my initial assessment. ROS: - Per HPI Differential Diagnosis: Drain malfunction, intra-abdominal abscess, perforated viscus, urinary tract infection, sepsis, amongst other potential pathologies. *Outpatient medications and allergy history reviewed. PE: General: Alert HEENT: Normocephalic, trachea midline Eyes: Extraocular eye movement is intact, no scleral erythema Pulmonary: Clear to auscultation bilaterally, no wheezing Cardio: Regular rate and rhythm GI: Abdomen is soft to palpation, wound to the left lower quadrant of the abdomen appears consistent with drain removal without surrounding erythema, ileostomy bag is in place with appropriate drainage : No suprapubic tenderness MSK: No evidence of trauma or malformation of the extremities, no edema Skin: No evidence of rash Neuro: Alert, no focal deficits Psychiatric: Cooperative INDEPENDENT INTERPRETATIONS: school lunch monitor: (As interpreted by myself): - An order was placed for continuous cardiac monitoring - Patient was noted to be in sinus rhythm with a rate of 90 Interventions provided in ED: -IV fluid bolus, IV cefepime Medical Decision Making: Patient appears well on arrival here to the ED, IV was established and lab work obtained, patient was placed on cardiac/vascular sonographer. Lab work shows mild leukocytosis at 11.97, hemoglobin is 7.9 which appears to be near the patient's baseline, platelet count is normal. CMP shows worsening creatinine today to 3.85, this appears to be steadily trending upward in comparison to creatinine from lab work on 06/12 when her creatinine was 1.52. Hyponatremia is noted at 131, there is a chronic hyperbilirubinemia. CT imaging of the abdomen pelvis that was performed earlier today was reviewed, that shows possibility of enlarging intra-abdominal abscess that extends up to the left psoas. There is some evidence of gas formation consistent with possible leak at the rectal stump versus gas from drain placement per interpreting radiologist. Patient does not appear toxic on my exam and I have low suspicion for gas-forming infection at this time. There is also some evidence of possible a sending infection of the left ureter. Patient is noted to have a fistulous track from the fluid collection to the bladder. I discussed all the above findings with the patient, case was also discussed with on-call general surgery, Dr. Landis. At this time we will plan for admission to the medicine service for further management of worsening kidney function, multiple potential sources for infection, and likely IR consultation to arrange for abscess drainage and drain replacement. Patient is in agreement to this plan. Blood cultures were drawn in the ED, patient was initiated on IV cefepime. Case was discussed with the on-call hospitalist, Dr. Waldrop, the patient was placed for admission in stable condition. Consultants/Discussions held with other healthcare providers: -Dr. Landis, general surgery -Dr. Waldrop, hospitalist Disposition discussion held by myself with: -Patient Diagnosis: 1. Intra-abdominal abscess, acute on chronic, enlarging 2. Acute on chronic renal failure 3. Urinary tract infection 4. Vesicular fistula 5. Hyponatremia, acute 6. Hyperbilirubinemia, chronic 7. History of metastatic appendiceal cancer 8. 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, unproven Near syncope Acute hypokalemia ABILIO (acute kidney injury) UTI (urinary tract infection) Acute kidney injury superimposed on CKD Acute hypokalemia Borderline diabetes diet controlled Chronic ITP (idiopathic thrombocytopenia) platelet WNL on 06/01/20 labs Anemia chronic, baseline hgb 9-11 range per chart review 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, chemo currently Pancreatitis post-op (2014) Mucinous adenocarcinoma of appendix (~03/2013) 2013 Hyponatremia High cholesterol Surgical History Encounter for insertion of venous access port 2012 (subsequent removal) History of laparotomy USO + salipngectomy Hx laparoscopic cholecystectomy 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 Family History Other Diabetes Heart disease Hypertension Stroke Social History Smoking Status: Never smoker Second Hand Exposure: No; Do You Dip or Chew Tobacco: No; Tobacco Cessation Education Requested by Patient: No Hx Alcohol Use: Yes Alcohol type: other Hx Substance Use: No Preferred Language: [place] Communication Ability: Effective Visual Impairment: No Limitations Automotive Heavy Mechanic Required: No Beliefs That Will Affect Care: None marital status: Current Living Situation: Family Current Living Situation Comment: lives with son Kwadwo Feels Safe at Home: Yes Safety Concerns: Feels Safe At This Time Assistive Devices: None Allergies Allergies Allergy/AdvReac Type Severity Reaction Status Date / Time pineapple Allergy Severe anaphylaxis Verified 07/22/23 22:31 tomato Allergy Severe hives, Verified 07/22/23 22:31 throat tightness cantaloupe Allergy Intermediate Hives Verified 07/22/23 22:31 [place] And Derivatives Allergy Intermediate hives Verified 07/22/23 22:31 clarithromycin Allergy Intermediate hives Verified 07/22/23 22:31 lemon Allergy Intermediate Hives Verified 07/22/23 22:31 lemon oil Allergy Intermediate Hives Verified 07/22/23 22:31 [place] Allergy Intermediate Hives Verified 07/22/23 22:31 naproxen Allergy Intermediate hives Verified 07/22/23 22:31 orange Allergy Intermediate Hives Verified 07/22/23 22:31 orange (food color) Allergy Intermediate Hives Verified 07/22/23 22:31 orange flavor Allergy Intermediate Hives Verified 07/22/23 22:31 orange juice Allergy Intermediate Hives Verified 07/22/23 22:31 Penicillins Allergy Intermediate hives Verified 07/22/23 22:31 latex Allergy Mild rash Verified 07/22/23 22:31 Home Meds Home Medications Medication Instructions Recorded Confirmed brimonidine 0.1 % eye drops 1 drp OPB TID 05/12/19 07/22/23 (Alphagan P) cholecalciferol (vitamin D3) 50 2,000 unit PO QAM 05/12/19 07/22/23 mcg (2,000 unit) capsule (Vitamin D3) latanoprost 0.005 % eye drops 1 drp OPB HS 05/12/19 07/22/23 (Xalatan) multivitamin 1 tab PO QAM 05/12/19 07/22/23 ondansetron HCl 8 mg tablet 8 mg PO Q8H PRN Nausea 12/18/20 07/22/23 prochlorperazine maleate 10 mg 10 mg PO Q6 PRN Nausea 12/18/20 07/22/23 tablet allopurinol 100 mg tablet 200 mg PO DAILY 02/17/23 07/22/23 potassium chloride 10 mEq 10 meq PO DAILY 02/17/23 07/22/23 capsule,extended release Results & Data (ED) Vital Signs Vital Signs - 24 hr 07/22/23 18:41 07/22/23 18:41 07/22/23 22:35 Temperature 36.1 C L Temperature Source Temporal Artery Scan Pulse Rate 102 H Pulse Rate [Apical] Respiratory Rate 19 Respiratory Effort / Characteristics Non-Labored Spontaneous Non-Labored Spontaneous Respiratory Depth Normal Normal Blood Pressure 100/61 Blood Pressure [Right Arm] 148/88 H Blood Pressure Mean 74 Blood Pressure Mean [Right Arm] 108 Pulse Oximetry 97 Oxygen Delivery Method Room Air Sepsis Recent Fever Within 48 Hours No Sepsis New/Unexplained Change in Mental Status N/A Sepsis Action Taken by Nursing No Action Required 07/22/23 23:15 07/22/23 23:16 Temperature 36.9 C Temperature Source Oral Pulse Rate 99 H Pulse Rate [Apical] 99 H Respiratory Rate 18 Respiratory Effort / Characteristics Respiratory Depth Blood Pressure Blood Pressure [Right Arm] 95/57 L Blood Pressure Mean Blood Pressure Mean [Right Arm] 69 Pulse Oximetry 93 Oxygen Delivery Method Room Air Sepsis Recent Fever Within 48 Hours Sepsis New/Unexplained Change in Mental Status Sepsis Action Taken by Nursing Laboratory Data 07/23/23 08:38 07/23/23 08:38 Lab Results 07/22/23 07/22/23 Range/Units 20:25 20:44 WBC 11.97 H (4.8-10.8) K/ul RBC 2.74 L (4.20-5.40) M/uL Hgb 7.9 L (12.0-16.0) g/dl Hct 24.7 L (37.0-47.0) % MCV 90.1 (80.0-100.0) fL MCH 28.8 (25.0-34.0) pg MCHC 32.0 (32.0-36.0) g/dL RDW Std Deviation 57.4 H (36.4-46.3) fL RDW Coeff of Veda 17.4 H (11.5-14.5) % Plt Count 211 (130-400) K/uL MPV 10.8 (9.4-12.4) fL Immature Gran % (Auto) 0.8 % Neut % (Auto) 79.8 % Lymph % (Auto) 10.9 % [place] % (Auto) 7.9 % Eos % (Auto) 0.3 % Baso % (Auto) 0.3 % Neut # (Auto) 9.55 H (1.40-6.50) K/uL Lymph # (Auto) 1.30 (1.20-3.40) K/uL [place] # (Auto) 0.95 H (0.11-0.59) K/uL Eos # (Auto) 0.04 (0.00-0.50) K/uL Baso # (Auto) 0.03 (0.00-0.20) K/uL Immature Gran # (Auto) 0.10 (0.01-0.20) K/uL Polychromasia 1+ Anisocytosis Present Sodium 131 L (136-145) mmol/L Potassium 3.4 L (3.5-5.1) mmol/L Chloride 87 L (98-107) mmol/L Carbon Dioxide 31 (21-32) mmol/L Anion Gap 13 H (3-11) BUN 59 H (6-23) mg/dl Creatinine 3.85 H D (0.6-1.2) mg/dl Est Cr Clr Drug Dosing 10.0 ml/min Est GFR ( Amer) 13.7 ml/min Est GFR (Non-Af Amer) 11.8 ml/min BUN/Creatinine Ratio 15.3 (10-20) Glucose 252 H (70-99(Fasting)) mg/dl Calcium 8.6 (8.6-10.3) mg/dl Total Bilirubin 4.1 H (0.2-1.0) mg/dl AST 54 H (13-39) U/L ALT 27 (7-52) U/L Alkaline Phosphatase 656 H (34-104) U/L Total Protein 7.5 (6.0-8.3) gm/dl Albumin 3.3 L (3.4-5.0) gm/dl Globulin 4.2 H (2.5-4.0) gm/dl Albumin/Globulin Ratio 0.8 L (0.9-2) Lipase 62 (11-82) U/L Urine Color Red Urine Appearance Turbid A (Clear) Urine pH (4.5-7.5) Ur Specific [place] 1.022 (1.000-1.030) Urine Protein (Negative) Urine Glucose (UA) (Negative) Urine Ketones (Negative) Urine Blood (Negative) Urine Nitrite (Negative) Urine Bilirubin (Negative) Urine Urobilinogen (Negative) Ur Leukocyte Esterase (Negative) Urine RBC >30 H (0-4) /hpf Urine WBC >30 H (0-5) /hpf Ur Epithelial Cells 0-5 (0-5) /lpf Urine Bacteria 4+ H (Negative) Hyaline Casts 0-5 (0-5) /lpf Administered Medications Allopurinol (Allopurinol 100 Mg Tab) 100 mg PO DAILY JEFF Stop: 08/22/23 08:59 Last Admin: 07/23/23 08:52 Dose: 100 mg Documented By: ANTOLIN Metronidazole (Flagyl) 500 mg in 100 mls @ 100 mls/hr IV Q8H JEFF; Protocol Stop: 08/02/23 03:29 Last Infusion: 07/23/23 06:45 Dose: Infused Documented By: Admin: 07/23/23 05:20 Dose: 100 mls/hr Documented By: ROMÁN Lactated Ringer's (Lr) 1,000 mls @ 80 mls/hr IV .[id number] [facility] Stop: 07/23/23 15:26 Last Admin: 07/23/23 03:10 Dose: 80 mls/hr Documented By: ROMÁN Discontinued Medications Sodium Chloride (Nss) 1,000 mls @ 999 mls/hr IV .[id number] ONE Stop: 07/22/23 23:42 Last Infusion: 07/23/23 00:27 Dose: Infused Documented By: Admin: 07/22/23 23:20 Dose: 999 mls/hr Documented By: HASMUKH Cefepime HCl (Maxipime) 2,000 mg in 20 mls @ 5 mls/min IV NOW STA; Protocol Stop: 07/22/23 23:47 Last Admin: 07/23/23 00:08 Dose: 5 mls/min Documented By: HASMUKH Discharge Plan Visit Data Chief Complaint: Wound Recheck Stated Complaint: DRAINED BAG FOR ABSESS CAME OUT ED Provider: Ayush Harkins Discharge Problem: Abscess Patient Disposition: Admitted As Inpatient Discharge Instructions Interventions: ED Discharge Assessment Last Done: 07/23/23 01:41
[2023-07-22] MEDS ORDERED: CEFEPIME 2,000 MG/20 ML VIAL IV STA (23:44)
--- NOTE | 2023-07-23 00:44 | History & Physical Report ---
Date of Service July 23, 2023 Assessment & Plan (1) Intra-abdominal abscess: Plan: Patient with drain in place - she reports minimal output since its placement. Drain fell out today. CT of the abdomen confirmed increase in size. -IR consultation for replacement of drain -NPO -Continue antibiotic coverage for now - Cefepime and Flagyl (2) CKD (chronic kidney disease): Plan: Patient follows with Nephrology. Has had worsening renal function. Patient reports normal UOP and intake. Electrolytes are acceptable. -Check urine Na and Cr -Repeat chemistry in AM -Gentle IVF - LR at 80mL/hr x 1 liter -Avoid nephrotoxic agents -Renal dosing where needed History of Present Illness Chief Complaint: drain removed Primary Care Provider: Ney Chisholm Brooke Vasquez is a 63yo female with history of appendiceal carcinoma with remote history of bowel resection with ileostomy placement, most recently admitted to [facility] with a rectal stump abscess s/p IR drain placement on 06/11/23. Patient completed treatment with antibiotics without difficulty. She reports that her drain put out minimal output since its placement. She has been following with General Surgery for drain management and monitoring of the abscess. She had a CT of the abdomen performed today to confirm drain placement - found to have superior extension along the left psoas muscle with associated gas which has increased in size. A component of the fluid collection extended to the bladder suggesting underlying fistula. She was then seen by Nephrology for routine followup of her CKD and referred to General Surgery due to the CT findings. In transit, her drain actually became loose and fell out. Patient denies fever, chills, rigors. Denies abdominal pain. There has been some discharge from the drain site. No additional complaints at this time. She reports normal UOP. Normal PO intake In the ER patient afebrile, HD stable Allergies Allergy/AdvReac Type Severity Reaction Status Date / Time pineapple Allergy Severe anaphylaxis Verified 07/22/23 22:31 tomato Allergy Severe hives, Verified 07/22/23 22:31 throat tightness cantaloupe Allergy Intermediate Hives Verified 07/22/23 22:31 [place] And Derivatives Allergy Intermediate hives Verified 07/22/23 22:31 clarithromycin Allergy Intermediate hives Verified 07/22/23 22:31 lemon Allergy Intermediate Hives Verified 07/22/23 22:31 lemon oil Allergy Intermediate Hives Verified 07/22/23 22:31 [place] Allergy Intermediate Hives Verified 07/22/23 22:31 naproxen Allergy Intermediate hives Verified 07/22/23 22:31 orange Allergy Intermediate Hives Verified 07/22/23 22:31 orange (food color) Allergy Intermediate Hives Verified 07/22/23 22:31 orange flavor Allergy Intermediate Hives Verified 07/22/23 22:31 orange juice Allergy Intermediate Hives Verified 07/22/23 22:31 Penicillins Allergy Intermediate hives Verified 07/22/23 22:31 latex Allergy Mild rash Verified 07/22/23 22:31 Home Medications Medication Instructions Recorded Confirmed Type brimonidine 0.1 % eye drops 1 drp OPB TID 05/12/19 07/22/23 History (Alphagan P) cholecalciferol (vitamin D3) 50 2,000 unit PO QAM 05/12/19 07/22/23 History mcg (2,000 unit) capsule (Vitamin D3) latanoprost 0.005 % eye drops 1 drp OPB HS 05/12/19 07/22/23 History (Xalatan) multivitamin 1 tab PO QAM 05/12/19 07/22/23 History ondansetron HCl 8 mg tablet 8 mg PO Q8H PRN Nausea 12/18/20 07/22/23 History prochlorperazine maleate 10 mg 10 mg PO Q6 PRN Nausea 12/18/20 07/22/23 History tablet allopurinol 100 mg tablet 200 mg PO DAILY 02/17/23 07/22/23 History potassium chloride 10 mEq 10 meq PO DAILY 02/17/23 07/22/23 History capsule,extended release Past Med/Surg History Medical History 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, unproven Near syncope Acute hypokalemia ABILIO (acute kidney injury) UTI (urinary tract infection) Acute kidney injury superimposed on CKD Acute hypokalemia Borderline diabetes diet controlled Chronic ITP (idiopathic thrombocytopenia) platelet WNL on 06/01/20 labs Anemia chronic, baseline hgb 9-11 range per chart review Primary cancer of appendix 2013 s/p surgical intervention, chemo currently Pancreatitis post-op (2014) Mucinous adenocarcinoma of appendix (~03/2013) 2013 Hyponatremia High cholesterol Surgical History Encounter for insertion of venous access port 2012 (subsequent removal) History of laparotomy USO + salipngectomy Hx laparoscopic cholecystectomy 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 Family History Other Diabetes Heart disease Hypertension Stroke Social History Smoking Status: Unknown if ever smoked Second Hand Exposure: No; Do You Dip or Chew Tobacco: No; Hx Alcohol Use: No Hx Substance Use: No Preferred Language: [place] Communication Ability: Effective Visual Impairment: No Limitations Dispensing And Measuring Optician Required: No Beliefs That Will Affect Care: None marital status: Current Living Situation: Family Current Living Situation Comment: lives with son Feels Safe at Home: Yes Assistive Devices: None Review of Systems Review of Systems: All systems reviewed & are unremarkable except as noted in HPI & below Physical Exam Physical Exam: General: patient resting comfortably, NAD, non-toxic in appearance, AA&O x 4 Skin: warm, dry, intact, no rashes or lesions HEENT: NC/AT, PERRL, EOMI, anicteric sclera, conjunctiva without injection, external ear normal to inspection and nontender, nares patent, moist mucus membranes, dentition intact, no oropharyngeal lesions, neck supple, trachea midline, no LAD, no thyromegaly, no JVD Heart: +S1/S2, regular, no m/r/g, right chest port in place, no redness or tenderness Lungs: equal air entry bilaterally, no rales/rhonchi/wheezes Abd: +BS, soft, NT/ND, colostomy in place with normal output. Drain tract with minimal discharge Ext: warm, 2+ pulses in UE/LE bilaterally, no clubbing/cyanosis or edema Neuro: nonfocal, patient AA&O x 4, speech intact, no facial droop, moving all extremities on command with equal strength 5/5 Results & Data Results & Data Vital Signs (Past 12 Hours) Vital Signs Temp Pulse Pulse Resp BP BP Pulse Ox 07/23/23 00:02 116 H 07/22/23 23:16 99 H 07/22/23 23:15 36.9 C 99 H 18 95/57 L 93 11/29/23 22:35 148/88 H 07/22/23 18:41 36.1 C L 102 H 19 100/61 97 O2 Del Method 07/23/23 00:02 07/22/23 23:16 07/22/23 23:15 Room Air 07/22/23 22:35 07/22/23 18:41 Room Air Laboratory Results Laboratory Results WBC 11.97 K/ul (4.8-10.8) H 07/22/23 20:44 RBC 2.74 M/uL (4.20-5.40) L 07/22/23 20:44 Hgb 7.9 g/dl (12.0-16.0) L 07/22/23 20:44 Hct 24.7 % (37.0-47.0) L 07/22/23 20:44 MCV 90.1 fL (80.0-100.0) 07/22/23 20:44 MCH 28.8 pg (25.0-34.0) 07/22/23 20:44 MCHC 32.0 g/dL (32.0-36.0) 07/22/23 20:44 RDW Std Deviation 57.4 fL (36.4-46.3) H 07/22/23 20:44 RDW Coeff of Veda 17.4 % (11.5-14.5) H 07/22/23 20:44 Plt Count 211 K/uL (130-400) 07/22/23 20:44 MPV 10.8 fL (9.4-12.4) 07/22/23 20:44 Immature Gran % (Auto) 0.8 % 07/22/23 20:44 Neut % (Auto) 79.8 % 07/22/23 20:44 Lymph % (Auto) 10.9 % 07/22/23 20:44 [place] % (Auto) 7.9 % 07/22/23 20:44 Eos % (Auto) 0.3 % 07/22/23 20:44 Baso % (Auto) 0.3 % 07/22/23 20:44 Neut # (Auto) 9.55 K/uL (1.40-6.50) H 07/22/23 20:44 Lymph # (Auto) 1.30 K/uL (1.20-3.40) 07/22/23 20:44 [place] # (Auto) 0.95 K/uL (0.11-0.59) H 07/22/23 20:44 Eos # (Auto) 0.04 K/uL (0.00-0.50) 07/22/23 20:44 Baso # (Auto) 0.03 K/uL (0.00-0.20) 07/22/23 20:44 Immature Gran # (Auto) 0.10 K/uL (0.01-0.20) 07/22/23 20:44 Polychromasia 1+ 07/22/23 20:44 Anisocytosis Present 07/22/23 20:44 Sodium 131 mmol/L (136-145) L 07/22/23 20:44 Potassium 3.4 mmol/L (3.5-5.1) L 07/22/23 20:44 Chloride 87 mmol/L (98-107) L 07/22/23 20:44 Carbon Dioxide 31 mmol/L (21-32) 07/22/23 20:44 Anion Gap 13 (3-11) H 07/22/23 20:44 BUN 59 mg/dl (6-23) H 07/22/23 20:44 Creatinine 3.85 mg/dl (0.6-1.2) H D 07/22/23 20:44 Est Cr Clr Drug Dosing 10.0 ml/min 07/22/23 20:44 Est GFR ( Amer) 13.7 ml/min 07/22/23 20:44 Est GFR (Non-Af Amer) 11.8 ml/min 07/22/23 20:44 BUN/Creatinine Ratio 15.3 (10-20) 07/22/23 20:44 Glucose 252 mg/dl (70-99(Fasting)) H 07/22/23 20:44 Calcium 8.6 mg/dl (8.6-10.3) 07/22/23 20:44 Total Bilirubin 4.1 mg/dl (0.2-1.0) H 07/22/23 20:44 AST 54 U/L (13-39) H 07/22/23 20:44 ALT 27 U/L (7-52) 07/22/23 20:44 Alkaline Phosphatase 656 U/L (34-104) H 07/22/23 20:44 Total Protein 7.5 gm/dl (6.0-8.3) 07/22/23 20:44 Albumin 3.3 gm/dl (3.4-5.0) L 07/22/23 20:44 Globulin 4.2 gm/dl (2.5-4.0) H 07/22/23 20:44 Albumin/Globulin Ratio 0.8 (0.9-2) L 07/22/23 20:44 Lipase 62 U/L (11-82) 07/22/23 20:44 Urine Color Red 07/22/23 20:25 Urine Appearance Turbid (Clear) A 07/22/23 20:25 Urine pH (4.5-7.5) 07/22/23 20:25 Ur Specific [place] 1.022 (1.000-1.030) 07/22/23 20:25 Urine Protein (Negative) 07/22/23 20:25 Urine Glucose (UA) (Negative) 07/22/23 20:25 Urine Ketones (Negative) 07/22/23 20:25 Urine Blood (Negative) 07/22/23 20:25 Urine Nitrite (Negative) 07/22/23 20:25 Urine Bilirubin (Negative) 07/22/23 20:25 Urine Urobilinogen (Negative) 07/22/23 20:25 Ur Leukocyte Esterase (Negative) 07/22/23 20:25 Urine RBC >30 /hpf (0-4) H 07/22/23 20:25 Urine WBC >30 /hpf (0-5) H 07/22/23 20:25 Ur Epithelial Cells 0-5 /lpf (0-5) 07/22/23 20:25 Urine Bacteria 4+ (Negative) H 07/22/23 20:25 Hyaline Casts 0-5 /lpf (0-5) 07/22/23 20:25 Code Status & VTE Plan VTE Prophylaxis Plan VTE Prophylaxis will be ordered: Yes PG Care Time/CCT Total # of Minutes Spent Total Time Spent with Patient: Total time spent is greater than 50% in coordination of care (as documented) at patient's floor/unit and/or counseling patient: Coding Level of Care Code 02339 INT INP/OBS CARE 2/55MIN Diagnoses Intra-abdominal abscess K65.1 CKD (chronic kidney disease) N18.9
[2023-07-23] MEDS ORDERED: LACTATED RINGER'S 1,000 ML IV SCH (02:57)
[2023-07-23] MEDS ORDERED: PROCHLORPERAZINE MALEATE 10 MG TAB PO PRN (02:57)
[2023-07-23] MEDS: metroNIDAZOLE 500 MG/100 ML BAG IV SCH ×3 (05:20→18:40)
--- NOTE | 2023-07-23 07:56 | Hospitalist Progress Note ---
Date of Service July 23, 2023 Assessment & Plan (1) Intra-abdominal abscess: Plan: Patient with drain in place - she reports minimal output since its placement. - Drain fell out and was replaced 07/23 -Continue antibiotic coverage for now - Cefepime and Flagyl - Cultures pending (2) CKD (chronic kidney disease): Plan: Patient follows with Nephrology. Has had worsening renal function. Patient reports normal UOP and intake. -Gentle IVF - LR at 80mL/hr x 1 liter -Avoid nephrotoxic agents -Renal dosing where needed - Continue to trend, mild improvement from 3.8 to 3.4 (3) Anemia: Plan: - baseline hemoglobin= 7-8 - required transfusion during admission in 06/15 - hbg=6.4 this morning - plan to transfuse 2 units irradiated pRBC (4) Enterovaginal fistula: Plan: - noted on prior admission -declined surgery (5) Chronic ITP (idiopathic thrombocytopenia): Plan: - platelets stable on 158 - continue to trend (6) Mucinous adenocarcinoma of appendix: Plan: - follows with Dr. Fierro - advance disease, no current treatment options (7) Hypokalemia: Plan: - K= 3.3 - repleted cautiously given CKD Admission and Anticipated Discharge Date Admission Date: July 23, 2023 Supervising Physician Co-Signing Physician Notes I also saw the patient and confirmed amin portions of the clinical history of his examination. I agree with impression and plan as noted in resident documentation above. Drain to be replaced today. Agree with transfusion of 2 units packed red blood cells; indications and potential complications reviewed with the patient and consent signed. Patient's son was at bedside and updated. Subjective Brooke doing well this morning. No complaints. Son was also at bedside and updated. Review of Systems Review of Systems: As per above Physical Exam Physical Exam: Constitutional: well-appearing, no acute distress HEENT: NCAT, no conjunctival injection CV: regular rhythm, no murmur appreciated, extremities well-perfused, no LE edema Resp: CTABL, no wheezes/rales/rhonchi appreciated, no increased work of breathing GI: soft, nondistended, nontender, ostomy in place MSK: no gross deformities appreciated Skin: warm, dry, no rash appreciated Neuro: alert, oriented, no focal neurologic deficit appreciated Results & Data Results & Data Vital Signs (Past 12 Hours) Vital Signs Temp Pulse Pulse Pulse Resp BP Pulse Ox 07/23/23 02:00 36.5 C 93 H 14 104/66 100 07/22/23 23:16 99 H 07/22/23 23:15 36.9 C 99 H 18 95/57 L 93 07/22/23 22:35 148/88 H O2 Del Method 07/23/23 02:00 Room Air 07/22/23 23:16 07/22/23 23:15 Room Air 07/22/23 22:35 Resident Activity Tracking Resident Involvement: Resident Care Provided Care Provided: Adult Hospital Medicine
[2023-07-23] MEDS: allopurinoL 100 MG TAB PO SCH (08:52)
[2023-07-23 09:11] LABS: Hematocrit (blood only) 20.2 % (37.0-47.0); Hemoglobin 6.4 g/dl (12.0-16.0); Mean Corpuscular Hemoglobin 28.8 pg (25.0-34.0); Mean Corpuscular Hgb Conc 31.7 g/dL (32.0-36.0); Mean Platelet Volume 11.2 fL (9.4-12.4); Platelet Count 158 K/uL (130-400); RDW Coefficient of Variation 17.4 % (11.5-14.5); RDW Standard Deviation 58.7 fL (36.4-46.3); Red Blood Count 2.22 M/uL (4.20-5.40)
[2023-07-23 09:21] LABS: Albumin Globulin Ratio 0.8 (0.9-2); Albumin Level 2.5 gm/dl (3.4-5.0); BUN Creatinine Ratio 16.5 (10-20); Bilirubin,Total 3.3 mg/dl (0.2-1.0); Calcium 7.8 mg/dl (8.6-10.3); Creatinine Clr Calc Pharmacy 11.5 ml/min; Est GFR (African American) 15.6 ml/min; Est GFR (Non-African American) 13.5 ml/min; Globulin 3.3 gm/dl (2.5-4.0); Potassium 3.3 mmol/L (3.5-5.1); Total Protein 5.8 gm/dl (6.0-8.3)
[2023-07-23 09:26] LABS: Basophils # (auto) 0.02 K/uL (0.00-0.20); Basophils % (auto) 0.3 %; Eosinophils # (auto) 0.07 K/uL (0.00-0.50); Eosinophils % (auto) 0.9 %; Immature Granulocytes # (auto) 0.04 K/uL (0.01-0.20); Immature Granulocytes % (auto) 0.5 %; Lymphocytes # (auto) 1.16 K/uL (1.20-3.40); Lymphocytes % (auto) 15.7 %; Monocytes # (auto) 0.62 K/uL (0.11-0.59); Monocytes % (auto) 8.4 %; Neutrophils # (auto) 5.49 K/uL (1.40-6.50); Neutrophils % (auto) 74.2 %; RBC Morphology Unremarkable
[2023-07-23 09:29] LABS: INR 1.2 (0.9-1.1); Partial Thromboplastin Ratio 1.1; Partial Thromboplastin Time 31.3 Seconds (21.0-31.0); Prothrombin Time 13.4 Seconds (9.0-12.0)
[2023-07-23] MEDS ORDERED: SODIUM CHLORIDE 0.9% 250 ML IV PRN ×2 (09:54→10:53)
[2023-07-23] MEDS ORDERED: MoRPHine SULFATE 4 MG/ML 1 ML CARP\\VIAL ONE (11:15)
[2023-07-23] MEDS: CEFEPIME 1,000 MG in SYRINGE 0 ML IV SCH (13:54)
[2023-07-23] MEDS: POTASSIUM CHLORIDE / WTR 10 MEQ/100 ML PLCT IV SCH ×2 (13:59→15:03)
--- NOTE | 2023-07-23 14:19 | CT Scan Report ---
CT-GUIDED ABDOMINAL ABSCESS DRAIN PLACEMENT CLINICAL HISTORY: Left lower quadrant abdominal fluid collection; drain removal COMPARISON STUDY: Abdominal CT dated 07/22/2023. PROCEDURE: Procedure and risks were explained. Informed consent was obtained. A final timeout was com pleted. The patient was supine prone on the CT exam table. The left lower quadrant was prepped and dr aped in sterile fashion. 1% buffered lidocaine was utilized for skin anesthesia. The patient received 1 mg morphine IV. Utilizing CT guidance, an 18-gauge Chiba needle was advanced into the left lower quadrant fluid colle ction. A 0.035 Amplatz wire was introduced through the Chiba needle and exchanged for an 8 Australian dil ator and finally a 10 Australian locking pigtail catheter. Approximately 20 mL of purulent appearing flui d was removed and a portion was sent to the lab for analysis. The catheter was then placed to suction bag drainage and sutured to the skin with 2-0 silk. The patient tolerated the procedure well. Post C T shows adequate pigtail placement without immediate complication. Vital signs will be monitored post procedure. IMPRESSION: Abdominal abscess drain placement as above. Performed, dictated, and signed by Akash Bird PA-C; to be co-signed by Dr. Jerald Sanders. Electronically signed by: Jerald Sanders M.D. 07/23/2023 3:23 PM
[2023-07-23] MEDS: LATANOPROST 0.005% OP SOLN 2.5 ML BTL OPB SCH (21:48)
[2023-07-23] MEDS: ACETAMINOPHEN 325 MG TAB PO PRN (23:12)
[2023-07-24] MEDS: CEFEPIME 1,000 MG in SYRINGE 0 ML IV SCH ×3 (01:02→23:10)
[2023-07-24] MEDS: metroNIDAZOLE 500 MG/100 ML BAG IV SCH ×3 (05:14→19:29)
[2023-07-24 05:42] LABS: Hemoglobin 9.1 g/dl (12.0-16.0); Mean Corpuscular Hgb Conc 33.7 g/dL (32.0-36.0); Mean Corpuscular Volume 89.1 fL (80.0-100.0); Mean Platelet Volume 11.1 fL (9.4-12.4); Platelet Count 135 K/uL (130-400); RDW Coefficient of Variation 15.7 % (11.5-14.5); RDW Standard Deviation 50.1 fL (36.4-46.3); Red Blood Count 3.03 M/uL (4.20-5.40); White Blood Count 14.36 K/ul (4.8-10.8)
[2023-07-24 06:05] LABS: Albumin Level 2.4 gm/dl (3.4-5.0); BUN Creatinine Ratio 16.6 (10-20); Bilirubin Direct 3.3 mg/dl (0-0.2); Bilirubin,Total 6.8 mg/dl (0.2-1.0); Calcium 7.5 mg/dl (8.6-10.3); Est GFR (African American) 16.5 ml/min; Est GFR (Non-African American) 14.2 ml/min; Magnesium 1.4 mg/dl (1.7-2.4); Potassium 3.4 mmol/L (3.5-5.1); Total Protein 5.5 gm/dl (6.0-8.3)
[2023-07-24] MEDS: HEPARIN 100 UNIT/ML 5ML FLUSH FLUSH PRN (06:13)
--- NOTE | 2023-07-24 07:47 | Hospitalist Progress Note ---
Date of Service July 24, 2023 Assessment & Plan (1) Intra-abdominal abscess: Plan: Patient with drain in place - she reports minimal output since its placement. - Drain fell out and was replaced 07/23 -Continue antibiotic coverage for now - Cefepime and Flagyl - Leukocytosis to 14 and mildly hypotensive - Cultures pending - Will need home health/follow up with gen surg for drain management - Continue fluids LR @80mL/hr - Continue to trend CBC (2) CKD (chronic kidney disease): Plan: Patient follows with Nephrology. Has had worsening renal function. Patient reports normal UOP and intake. -ABILIO on CKD with baseline creatine of ~2 -Improving with IVF; continue as per above -Avoid nephrotoxic agents -Renal dosing where needed - Continue to trend, mild improvement from 3.8 to 3.3 (3) Anemia: Plan: - Normocytic - baseline hemoglobin= 7-8 - required transfusion during admission in 06/15 - s/p 2 units irradiated pRBC with Hbg= 9.1 - continue to trend CBC daily (4) Enterovaginal fistula: Plan: - noted on prior admission -declined surgery (5) Chronic ITP (idiopathic thrombocytopenia): Plan: - platelets stable at 135 - continue to trend (6) Mucinous adenocarcinoma of appendix: Plan: - follows with Dr. Fierro - advance disease, no current treatment options (7) Hypokalemia: Plan: - K= 3.4 - repleted cautiously given CKD - Mg= 1.4; repleted (8) Hyperbilirubinemia: Plan: - Elevated Alk Phos with relativity normal AST/ALT - CT Ab/Pelvis with biliary violeta dilation, which is chronic - continue to trend Admission and Anticipated Discharge Date Admission Date: July 23, 2023 Supervising Physician Co-Signing Physician Notes Attending attestation Pt seen and examined in concert with Dr. Brown. In agreement with the documented findings as noted in the resident documentation with any exceptions or additions as noted here. Resting comfortably in bed without acute complaint at time of examination. On examination, S1/S2 nl RRR no MCG. CTAB. Abd NT/ND BS+ve. Ostomy in place. VS: 93/55, 75 15, 36.6C, 100 RA Data: WBC 14.36, hgb 9.1, Cr 3.31, elevated bili Intra-abd abscess s/p drain placement - trend CBC, f/u cultures. Continue present abx regimen and narrow/adjust based on sensitivities if available. CKD III w/ ABILIO, baseline of ~2 - gentle IV hydration, trend BMP Normocytic anemia s/p 2 UPRBC - trend CBC daily Else see resident documentation as noted. Subjective Brooke was doing well this morning. Drain replacement yesterday tolerated well. No acute complaints this morning. Review of Systems Review of Systems: As per above Physical Exam Physical Exam: Constitutional: well-appearing, no acute distress HEENT: NCAT, no conjunctival injection CV: regular rhythm, no murmur appreciated, extremities well-perfused, no LE edema Resp: CTABL, no wheezes/rales/rhonchi appreciated, no increased work of breathing GI: soft, nondistended, nontender, ostomy in place MSK: no gross deformities appreciated Skin: warm, dry, no rash appreciated Neuro: alert, oriented, no focal neurologic deficit appreciated Results & Data Results & Data Vital Signs (Past 12 Hours) Vital Signs Temp Pulse Pulse Resp BP BP Pulse Ox 07/24/23 07:34 37.1 C 66 14 87/47 L 93 07/24/23 04:41 37.1 C 82 16 90/45 L 100 07/24/23 03:45 37.2 C 86 18 90/43 L 99 07/24/23 02:45 37.2 C 84 18 90/49 L 100 07/24/23 02:15 37.2 C 84 18 83/43 L 100 07/24/23 02:00 37.3 C 84 18 80/38 L 100 07/24/23 01:40 37.2 C 85 18 88/47 L 100 07/24/23 01:00 37.1 C 86 16 73/39 L 99 07/24/23 00:00 37.1 C 83 16 82/37 L 99 07/23/23 23:30 37.6 C H 86 16 83/45 L 100 07/23/23 23:15 37.3 C 86 18 84/48 L 100 07/23/23 23:14 37.3 C 86 18 84/48 L 100 07/23/23 23:00 37.4 C 88 18 91/52 L 100 07/23/23 22:55 37.4 C 88 18 91/52 L 100 07/23/23 21:28 36.9 C 86 18 92/50 L 98 07/23/23 19:50 O2 Del Method 07/24/23 07:34 Room Air 07/24/23 04:41 07/24/23 03:45 07/24/23 02:45 07/24/23 02:15 07/24/23 02:00 07/24/23 01:40 07/24/23 01:00 07/24/23 00:00 07/23/23 23:30 07/23/23 23:15 07/23/23 23:14 07/23/23 23:00 07/23/23 22:55 07/23/23 21:28 Room Air 07/23/23 19:50 Room Air Resident Activity Tracking Resident Involvement: Resident Care Provided Care Provided: Adult Hospital Medicine (2) CKD (chronic kidney disease) Chronic kidney disease stage: stage 3 (moderate) Chronic kidney disease stage 3 subtype: stage 3b (GFR 30-44) Qualified Code(s): N18.32 - Chronic kidney dise ase, stage 3b
[2023-07-24] MEDS ORDERED: POTASSIUM CHLORIDE / WTR 10 MEQ/100 ML PLCT IV ONE (07:48)
[2023-07-24] MEDS: allopurinoL 100 MG TAB PO SCH (08:45)
[2023-07-24] MEDS: LACTATED RINGER'S 1,000 ML IV SCH ×2 (08:59→23:06)
[2023-07-24] MEDS: MAGNESIUM SULFATE / D5W 1 GM/100 ML BAG IV SCH ×2 (09:06→11:02)
[2023-07-24] MEDS: ACETAMINOPHEN 325 MG TAB PO PRN (14:53)
[2023-07-24] MEDS: ONDANSETRON INJ 2 MG/ML 2 ML VIAL IV PRN (17:16)
[2023-07-24] MEDS: LATANOPROST 0.005% OP SOLN 2.5 ML BTL OPB SCH (21:14)
[2023-07-25] MEDS: metroNIDAZOLE 500 MG/100 ML BAG IV SCH ×3 (03:31→19:41)
--- NOTE | 2023-07-25 06:58 | Hospitalist Progress Note ---
Date of Service July 25, 2023 Assessment & Plan (1) Intra-abdominal abscess: Plan: Intra-abdominal Abscess Patient with drain in place - she reports minimal output since its placement. -Drain fell out and was replaced 07/23 -Continue antibiotic coverage for now - Cefepime and Flagyl -Leukocytosis to 14 and mildly hypotensive -Cultures with pinpoint growth, currently re-incubating -Will need home health/follow up with gen surg for drain management -Continue to trend CBC Chronic Kidney Disease (CKD) Patient follows with Nephrology. Has had worsening renal function. Patient reports normal UOP and intake. -ABILIO on CKD with baseline creatine of ~2 -Improved with IVF, Cr today at 2.61 -Avoid nephrotoxic agents -Renal dosing where needed -Continue to trend daily BMP Normocytic Anemia -Normocytic -baseline hemoglobin= 7-8 -required transfusion during admission in 06/15 -s/p 2 units irradiated pRBC, hgb this morning at 8.9 -continue to trend CBC daily Enterovaginal Fistula -Noted on prior admission -declined surgery Chronic ITP -Platelets stable at 126 -Continue to trend Mucinous Adenocarcinoma of Appendix -Follows with Dr. Fierro -Advanced disease, no current treatment options Hypokalemia -K 3.0, repletion ordered -Mg 1.7 Hyperbilirubinemia in Setting of Known Liver Mets -Elevated Alk Phos with relativity normal AST/ALT, per chart review she has had elevated alk phos chronically over the past few years -CT Ab/Pelvis with biliary violeta dilation, which is chronic -Elevated bili and alk phos likely due to known metastases to the liver (2) CKD (chronic kidney disease): (3) Anemia: (4) Enterovaginal fistula: (5) Chronic ITP (idiopathic thrombocytopenia): (6) Mucinous adenocarcinoma of appendix: (7) Hypokalemia: Plan: (8) Hyperbilirubinemia: Admission and Anticipated Discharge Date Admission Date: July 23, 2023 Supervising Physician Co-Signing Physician Notes Attending attestation Pt seen and examined in concert with Dr. Silverio. In agreement with the documented findings as noted in the resident documentation with any exceptions or additions as noted here. Feeling mildly tremulous this morning though has just gone to the restroom at time of evaluation and feeling cold. No other symptoms nor pain reported. On examination, S1/S2 nl RRR no MCG. CTAB. Abd NT/ND BS+ve. Ostomy in place. VS: 105/66, 72, 16, 37C, 100 RA Data: WBC 10.39, hgb 8.9, K 3.0, Cr 2.61, elevated bili Intra-abd abscess s/p drain placement - trend CBC, repeat abd Cx reincubating for pinpoint growth. Continue present abx regimen and narrow/adjust based on sensitivities if available. CKD III w/ ABILIO, baseline of ~2 with hypokalemia - d/c IV hydration, trend BMP, replete K+ Normocytic anemia s/p 2 UPRBC - trend CBC daily, stable at present Else see resident documentation as noted. Subjective Patient seen and examined at bedside. She denies any acute complaints, is resting comfortably. Tolerating PO fluids and food, denies any current pain. Review of Systems Review of Systems: As per above Physical Exam Constitutional: WD/WN, vitals as above Eyes: + anicteric sclerae; no conjunctival abn ormality ENMT: Ears: no external ear abnormality Nose: no external nose abnormality Moist mucous membranes Respiratory: normal respiratory effort, lungs clear to auscultation Cardiovascular: Rate/Rhythm: regular rate and regular rhythm Gastrointestinal (Abdomen): Inspection/Auscultation: abdomen not distended Percussion/Palpation: abdomen soft; abdomen nontender Skin: no rashes, warm and dry Neurologic: Moves all limbs independent Psychiatric: A+Ox3, euthymic affect Results & Data Results & Data Vital Signs (Past 12 Hours) Vital Signs Temp Pulse Resp BP Pulse Ox O2 Del Method 07/24/23 21:15 Room Air 07/24/23 20:29 36.7 C 73 18 85/51 L 100 Room Air Resident Activity Tracking Resident Involvement: Resident Care Provided Care Provided: Adult Hospital Medicine (2) CKD (chronic kidney disease) Chronic kidney disease stage: stage 3 (moderate) Chronic kidney disease stage 3 subtype: stage 3b (GFR 30-44) Qualified Code(s): N18.32 - Chronic kidney disease, stage 3b
[2023-07-25 07:09] LABS: Basophils # (auto) 0.04 K/uL (0.00-0.20); Basophils % (auto) 0.4 %; Eosinophils # (auto) 0.09 K/uL (0.00-0.50); Eosinophils % (auto) 0.9 %; Hemoglobin 8.9 g/dl (12.0-16.0); Immature Granulocytes # (auto) 0.06 K/uL (0.01-0.20); Immature Granulocytes % (auto) 0.6 %; Lymphocytes # (auto) 0.71 K/uL (1.20-3.40); Lymphocytes % (auto) 6.8 %; Mean Corpuscular Hemoglobin 30.1 pg (25.0-34.0); Mean Corpuscular Hgb Conc 34.2 g/dL (32.0-36.0); Mean Corpuscular Volume 87.8 fL (80.0-100.0); Mean Platelet Volume 12.2 fL (9.4-12.4); Monocytes # (auto) 0.74 K/uL (0.11-0.59); Monocytes % (auto) 7.1 %; Neutrophils # (auto) 8.75 K/uL (1.40-6.50); Neutrophils % (auto) 84.2 %; Platelet Count 126 K/uL (130-400); RDW Coefficient of Variation 15.6 % (11.5-14.5); RDW Standard Deviation 49.5 fL (36.4-46.3); Red Blood Count 2.96 M/uL (4.20-5.40); White Blood Count 10.39 K/ul (4.8-10.8)
[2023-07-25 07:34] LABS: Albumin Globulin Ratio 0.8 (0.9-2); Albumin Level 2.3 gm/dl (3.4-5.0); BUN Creatinine Ratio 18.4 (10-20); Bilirubin,Total 5.6 mg/dl (0.2-1.0); Calcium 7.7 mg/dl (8.6-10.3); Creatinine Clr Calc Pharmacy 15.2 ml/min; Est GFR (African American) 21.9 ml/min; Est GFR (Non-African American) 18.9 ml/min; Globulin 2.9 gm/dl (2.5-4.0); Magnesium 1.7 mg/dl (1.7-2.4); Total Protein 5.2 gm/dl (6.0-8.3)
[2023-07-25] MEDS: allopurinoL 100 MG TAB PO SCH (09:21)
[2023-07-25] MEDS ORDERED: POTASSIUM CHLORIDE CRTAB 20 MEQ TABCR PO STA (10:39)
[2023-07-25] MEDS: CEFEPIME 1,000 MG in SYRINGE 0 ML IV SCH ×2 (12:24→23:58)
[2023-07-25] MEDS: HEPARIN 100 UNIT/ML 5ML FLUSH FLUSH PRN ×2 (12:24→23:58)
[2023-07-25] MEDS: LATANOPROST 0.005% OP SOLN 2.5 ML BTL OPB SCH (19:42)
[2023-07-26] MEDS: metroNIDAZOLE 500 MG/100 ML BAG IV SCH ×3 (04:12→18:37)
--- NOTE | 2023-07-26 07:19 | Hospitalist Progress Note ---
Date of Service July 26, 2023 Assessment & Plan (1) Intra-abdominal abscess: Plan: Intra-abdominal Abscess Patient with drain in place - she reports minimal output since its placement. -Drain fell out and was replaced 07/23 -Continue antibiotic coverage for now - Cefepime and Flagyl -Leukocytosis to 14 and mildly hypotensive -Cultures with pinpoint growth, currently re-incubating: preliminary read as of 12/3 p.m. is "moderate counts mixed probable gastrointestinal microbiota" -Anticipate discharging on 3 week course of PO cefdinir/flagyl for recurrence of psoas abscess -Final culture should result within the next day -CM aware that home health will need set up/follow up with gen surg for drain management -Continue to trend CBC Chronic Kidney Disease (CKD) Patient follows with Nephrology. Has had worsening renal function. Patient reports normal UOP and intake. -ABILIO on CKD with baseline creatine of ~2 -Improved with IVF, Cr today at 2.30 -Avoid nephrotoxic agents -Renal dosing where needed -Continue to trend daily BMP Altered Mental Status -Some word finding difficulty/increased drowsiness this afternoon -CT head completed this afternoon, WNL and no signs of acute infarct or bleed -Could consider some delirium due to close interval hospitalizations Normocytic Anemia -Normocytic -baseline hemoglobin= 7-8 -required transfusion during admission in 06/15 -s/p 2 units irradiated pRBC, hgb this morning at 9.2 -continue to trend CBC daily Enterovaginal Fistula -Noted on prior admission -declined surgery Chronic ITP -Platelets stable -Continue to trend Mucinous Adenocarcinoma of Appendix -Follows with Dr. Fierro -Advanced disease, no current treatment options Hypokalemia -K 3.5 -Mg 1.5, repleted Hyperbilirubinemia in Setting of Known Liver Mets -Elevated Alk Phos with relativity normal AST/ALT, per chart review she has had elevated alk phos chronically over the past few years -CT Ab/Pelvis with biliary violeta dilation, which is chronic -Elevated bili and alk phos likely due to known metastases to the liver (2) CKD (chronic kidney disease): (3) Anemia: (4) Enterovaginal fistula: (5) Chronic ITP (idiopathic thrombocytopenia): (6) Mucinous adenocarcinoma of appendix: (7) Hypokalemia: Plan: (8) Hyperbilirubinemia: Admission and Anticipated Discharge Date Admission Date: July 23, 2023 Supervising Physician Co-Signing Physician Notes Attending attestation Pt seen and examined in concert with Dr. Silverio. In agreement with the documented findings as noted in the resident documentation with any exceptions or additions as noted here. Resolved tremulousness without recurrence after warming in bed. No other symptoms reported. On examination, S1/S2 nl RRR no MCG. CTAB. Abd NT/ND BS+ve. Ostomy in place. VS: 97/59, 84, 18, 36.9C, 100 RA Data: WBC 7.91, hgb 9.2, K 3.5, Cr 2.30, elevated bili Intra-abd abscess s/p drain placement - d/w micro lab re: outcome of cultures pending. Likely to restart 3 wk course following obtaining appropriate drainage s/p abscess enlargement CKD III w/ ABILIO, baseline of ~2 with hypokalemia - trend BMP Normocytic anemia s/p 2 UPRBC - trend CBC daily, stable at present Else see resident documentation as noted. Subjective Patient seen and examined at bedside. She has been tolerating PO liquids and foods without issue, has had adequate output from her ostomy. This afternoon, patient appeared more drowsy and had some word findings difficulty. She stated that she felt a bit "off" today. No significant neurological changes noted on exam at that time, head CT ordered. Review of Systems Review of Systems: As per above Physical Exam Constitutional: WD/WN, vitals as above Eyes: + anicteric sclerae; no conjunctival abn ormality ENMT: Ears: no external ear abnormality Nose: no external nose abnormality Respiratory: normal respiratory effort, lungs clear to auscultation Cardiovascular: Rate/Rhythm: regular rate and regular rhythm Gastrointestinal (Abdomen): Inspection/Auscultation: abdomen not distended Percussion/Palpation: abdomen soft; abdomen nontender Skin: no rashes, warm and dry Neurologic: Cranial Nerves: normal accommodation, tongue midline, no nystagmus and symmetric palate elevation Upper extremity strength 5/5 bilaterally, no pronator drift. Psychiatric: Oriented, appears fatigued Results & Data Results & Data Vital Signs (Past 12 Hours) Vital Signs O2 Del Method 07/25/23 19:45 Room Air Resident Activity Tracking Resident Involvement: Resident Care Provided Care Provided: Adult Hospital Medicine (2) CKD (chronic kidney disease) Chronic kidney disease stage: stage 3 (moderate) Chronic kidney disease stage 3 subtype: stage 3b (GFR 30-44) Qualified Code(s): N18.32 - Chronic kidney disease, stage 3b
[2023-07-26] MEDS: HEPARIN 100 UNIT/ML 5ML FLUSH FLUSH PRN ×2 (07:48→15:54)
[2023-07-26] MEDS: allopurinoL 100 MG TAB PO SCH (08:09)
[2023-07-26 08:42] LABS: BUN Creatinine Ratio 17.8 (10-20); Calcium 7.9 mg/dl (8.6-10.3); Creatinine Clr Calc Pharmacy 17.3 ml/min; Est GFR (African American) 25.5 ml/min; Magnesium 1.5 mg/dl (1.7-2.4); Potassium 3.5 mmol/L (3.5-5.1)
[2023-07-26 08:46] LABS: Basophils # (auto) 0.04 K/uL (0.00-0.20); Basophils % (auto) 0.5 %; Eosinophils # (auto) 0.08 K/uL (0.00-0.50); Hematocrit (blood only) 27.4 % (37.0-47.0); Hemoglobin 9.2 g/dl (12.0-16.0); Immature Granulocytes # (auto) 0.07 K/uL (0.01-0.20); Immature Granulocytes % (auto) 0.9 %; Lymphocytes # (auto) 1.02 K/uL (1.20-3.40); Lymphocytes % (auto) 12.9 %; Mean Corpuscular Hemoglobin 30.1 pg (25.0-34.0); Mean Corpuscular Hgb Conc 33.6 g/dL (32.0-36.0); Mean Corpuscular Volume 89.5 fL (80.0-100.0); Mean Platelet Volume 11.5 fL (9.4-12.4); Monocytes % (auto) 8.8 %; Neutrophils % (auto) 75.9 %; Platelet Count 118 K/uL (130-400); RDW Coefficient of Variation 16.3 % (11.5-14.5); RDW Standard Deviation 53.4 fL (36.4-46.3); Red Blood Count 3.06 M/uL (4.20-5.40); White Blood Count 7.91 K/ul (4.8-10.8)
[2023-07-26] MEDS: MAGNESIUM SULFATE / D5W 1 GM/100 ML BAG IV SCH ×2 (11:44→13:37)
[2023-07-26] MEDS: CEFEPIME 1,000 MG in SYRINGE 0 ML IV SCH (11:44)
--- NOTE | 2023-07-26 16:33 | CT Scan Report ---
HEAD CT NONCONTRAST CT DOSE: 625.8 mGy.cm HISTORY: mental status change TECHNIQUE: Multiaxial CT images of the head were performed without the use of intravenous contrast. A utomated exposure control was utilized for this study. A dose lowering technique was utilized adheri ng to the principles of ALARA. Comparison: Head CT 05/29/2023. Findings: Chronic opacification the right sphenoid sinus again noted. The mastoid air cells are clear . The calvarium and skull base are intact. The ventricles and sulci are within normal limits. There i s no mass, hematoma, midline shift, or acute infarct. Impression: No acute intracranial abnormality. ACT 112: Negative or not required by law. Electronically signed by: Jame Sotomayor M.D. 07/26/2023 4:31 PM
[2023-07-26] MEDS: LATANOPROST 0.005% OP SOLN 2.5 ML BTL OPB SCH (19:36)
[2023-07-27] MEDS: CEFEPIME 1,000 MG in SYRINGE 0 ML IV SCH ×2 (00:45→11:59)
[2023-07-27] MEDS: HEPARIN 100 UNIT/ML 5ML FLUSH FLUSH PRN ×3 (01:08→10:17)
[2023-07-27] MEDS: metroNIDAZOLE 500 MG/100 ML BAG IV SCH ×2 (04:01→10:59)
[2023-07-27] MEDS: ACETAMINOPHEN 325 MG TAB PO PRN (05:19)
[2023-07-27 08:27] LABS: Basophils # (auto) 0.04 K/uL (0.00-0.20); Basophils % (auto) 0.4 %; Eosinophils # (auto) 0.12 K/uL (0.00-0.50); Eosinophils % (auto) 1.3 %; Hematocrit (blood only) 27.8 % (37.0-47.0); Hemoglobin 9.3 g/dl (12.0-16.0); Immature Granulocytes # (auto) 0.05 K/uL (0.01-0.20); Immature Granulocytes % (auto) 0.6 %; Lymphocytes # (auto) 1.17 K/uL (1.20-3.40); Lymphocytes % (auto) 13.1 %; Mean Corpuscular Hgb Conc 33.5 g/dL (32.0-36.0); Mean Corpuscular Volume 89.7 fL (80.0-100.0); Mean Platelet Volume 11.7 fL (9.4-12.4); Monocytes % (auto) 10.1 %; Neutrophils # (auto) 6.64 K/uL (1.40-6.50); Neutrophils % (auto) 74.5 %; Platelet Count 131 K/uL (130-400); RDW Coefficient of Variation 16.2 % (11.5-14.5); RDW Standard Deviation 53.5 fL (36.4-46.3); White Blood Count 8.92 K/ul (4.8-10.8)
[2023-07-27] MEDS: allopurinoL 100 MG TAB PO SCH (08:32)
[2023-07-27 08:34] LABS: Albumin Globulin Ratio 0.8 (0.9-2); Albumin Level 2.5 gm/dl (3.4-5.0); BUN Creatinine Ratio 18.1 (10-20); Bilirubin,Total 4.7 mg/dl (0.2-1.0); Calcium 8.2 mg/dl (8.6-10.3); Est GFR (African American) 30.4 ml/min; Est GFR (Non-African American) 26.3 ml/min; Globulin 3.3 gm/dl (2.5-4.0); Magnesium 1.9 mg/dl (1.7-2.4); Potassium 3.1 mmol/L (3.5-5.1); Total Protein 5.8 gm/dl (6.0-8.3)
[2023-07-27] MEDS ORDERED: SODIUM CHLORIDE 0.9% 500 ML IV ONE (09:05)
[2023-07-27] MEDS ORDERED: POTASSIUM CHLORIDE CRTAB 20 MEQ TABCR PO ONE (09:11)
[2023-07-27] MEDS: ONDANSETRON INJ 2 MG/ML 2 ML VIAL IV PRN (10:16)
[2023-07-27] MEDS: HEPARIN SOD 5,000 UNIT/0.5 ML VIAL SQ SCH ×2 (10:59→20:02)
--- NOTE | 2023-07-27 11:18 | Hospitalist Progress Note ---
Date of Service July 27, 2023 Assessment & Plan (1) Intra-abdominal abscess: Plan: Pt is a 63 yo female with PMH of ?enterovesical fistula, CKD, chronic ITP, chronic anemia, and appendiceal cancer s/p removal and chemo presenting to the hospital because her abscess drain fell out and she needed it replaced. Lightheadedness/shakiness - began this morning per pt and is unusual for her - POC glucose 140s; BP 100s/60s - pt given 500cc bolus of NS - will monitor for improvement Intra-abdominal abscess - present since middle of May 2023 - drain fell out and was replaced 07/23 - continue antibiotic coverage: cefepime and flagyl - leukocytosis up to 14 and mildly hypotensive consistently (which appears chronic for her) - wound cx with pinpoint growth, currently re-incubating: showing moderate counts mixed probable gastrointestinal microbiota- awaiting final cx results - anticipate discharging on 3 week course of PO cefdinir/flagyl for recurrence of psoas abscess - CM aware that home health will need set up/follow up with gen surg for drain management ABILIO on CKD Patient follows with nephrology. She has had worsening renal function. Patient reports normal UOP and intake. 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 Fierro (last visit 07/03/2023) - advanced disease; not in current chemotherapy treatment Hypokalemia, resolved - replete as necessary Hyperbilirubinemia in setting of known liver mets - elevated alk phos with relativity normal AST/ALT, per chart review she has had elevated alk phos chronically over the past few years - CTAP with chronic biliary duct dilation Diet: regular VTE ppx: heparin Code: full Dispo: once stable, will d/c home with drain care (2) CKD (chronic kidney disease): (3) Anemia: (4) Enterovaginal fistula: (5) Chronic ITP (idiopathic thrombocytopenia): (6) Mucinous adenocarcinoma of appendix: (7) Hypokalemia: Plan: (8) Hyperbilirubinemia: Admission and Anticipated Discharge Date Admission Date: July 23, 2023 Supervising Physician Co-Signing Physician Notes I personally examined the patient and verified all amin points of history and exam, discussed case, and agree with decision making with Dr Brannon Feels weak and lightheaded. Having some pain. Vitals noted, in general she is awake and alert but does appear fatigued, laying in her bed very still. Does not appear to be in distress. HEENT normocephalic atraumatic mucous membranes moist. Breathing unlabored no accessory muscle use good effort. Skin shows no rashes no pallor or icterus. Abdomen is soft but mild to moderately tender around the area where the drain is inserted, no guarding rebound or rigidity no tracking erythema. Intra-abdominal abscesscontinue antibiotics to cover GI corinna, continue drainage. Given pain, will ask for surgical evaluation. Given weak and lightheadedadditional fluid bolus and ongoing maintenance fluids. Otherwise as above. Subjective Pt feeling shaky and lightheaded this morning. Also complaining of pain at her drain site. No chest pain, SOB, or leg pains. Review of Systems Review of Systems: As per HPI Physical Exam Physical Exam: Constitutional: well appearing, no acute distress HEENT: normocephalic, no conjunctival injection CV: RRR, no murmur, no LE edema Respiratory: CTA bilaterally. No rhonchi, wheezes, or crackles. No increased work of breathing MSK: no gross deformities noted Skin: warm, dry, no rashes Neuro: alert, oriented, no FND noted Psych: mood and affect congruent Abscess drain intact and draining purulent material. Results & Data Results & Data Vital Signs (Past 12 Hours) Vital Signs Temp Pulse Resp BP Pulse Ox O2 Del Method 07/27/23 08:24 36.7 C 79 16 109/63 99 Room Air Resident Activity Tracking Resident Involvement: Resident Care Provided Care Provided: Adult Hospital Medicine (2) CKD (chronic kidney disease) Chronic kidney disease stage: stage 3 (moderate) Chronic kidney disease stage 3 subtype: stage 3b (GFR 30-44) Qualified Code(s): N18.32 - Chronic kidney disease, stage 3b
[2023-07-27] MEDS ORDERED: LACTATED RINGER'S 1,000 ML IV ONE (17:15)
--- NOTE | 2023-07-27 18:18 | Billing Data ---
Date of Service July 27, 2023 Coding Level of Care Code 50992 SUB INP/OBS CARE
[2023-07-27] MEDS: LACTATED RINGER'S 1,000 ML IV SCH (19:16)
[2023-07-27] MEDS ORDERED: FAMOTIDINE 40 MG TABLET PO ONE (20:00)
[2023-07-27] MEDS: CEFDINIR 300 MG CAP PO SCH (20:02)
[2023-07-27] MEDS: metroNIDAZOLE 500 MG TAB PO SCH (20:02)
[2023-07-27] MEDS: LATANOPROST 0.005% OP SOLN 2.5 ML BTL OPB SCH (20:03)
--- NOTE | 2023-07-27 22:49 | Surgery Consultation ---
Date of Consultation July 27, 2023 Assessment & Plan (1) Intra-abdominal abscess: Patient is currently receiving antibiotics in form of cefdinir and Flagyl. Most recent culture for intra-abdominal abscess shows moderate counts of mixed probable gastrointestinal corinna. Final culture data still pending so would recommend continuing antibiotics until further culture data is available Maintain percutaneous drain to self suction Follow serial labs I discussed with the patient the possibility of checking a repeat CT scan to see if the newly placed percutaneous drain has decreased the size of her intra- abdominal abscess to any extent. After discussion with the patient she wishes to wait to be evaluated by Dr. Nieto on 07/28/2023 and see if a repeat CT scan is recommended at that time. Supervising Physician Co-Signing Physician Notes pnt d/w Fred Mello, history, labs and prior imaging reviewed, agree with above. H/O appendiceal ca, recent pelvic abscess s/p drain replacement, now with increased pain. Recommend repeat CT, but will defer to Dr. Garza who has been following patient. History of Present Illness Reason for Consultation: Intra-abdominal abscess Attending Physician: Alfonso Encarnacion DO History of Present Illness This is a 63-year-old female with an underlying history of appendiceal carcinoma. Patient was previously admitted to [facility] in May of this year secondary to an intra-abdominal abscess. During this visit the patient was noted to have thick/brown discharge from her vagina as well as concerns for urinary tract infection which was concerning for an enterovesical or an enterovaginal fistula. There is also concern the patient had a pelvic abscess which was originating on the rectal stump with extension into the iliopsoas muscle. This was treated with percutaneous drain placed by interventional radiology department. In addition to percutaneous drain the patient was treated with antibiotics. The patient has been followed as an outpatient by Dr. Lisa Richardson and her most recent visit was on 06/30/2023. During this visit it was recommended that patient undergo a repeat CT scan of the abdomen pelvis for further evaluation. The patient ultimately underwent a repeat CT scan on 07/22/[address] she did [address] a [address] scan of the abdomen and pelvis. This showed the patient had a percutaneous drain placed in a left iliopsoas fluid collection/abscess. When this study was compared to prior studies there appeared to be some extension along the left psoas muscle and increased gas within this fluid collection. There is also some gas in the left retroperitoneum which also was felt to have increased. The interpreting radiologist raise a concern that patient had a leaking rectal stump. Some of the fluid gas collection also extended in close proximity to the bladder raising the concern for an underlying colovesical fistula. There is no evidence of bowel obstruction. Following the CT scan the patient notes that her percutaneous drain inadvertently became pulled out. She has since had a repeat percutaneous drain placed under CT scan guidance which was performed on 07/23/2023. Since admission to the hospital the patient denies any fevers, shakes, or chills. She does note some generalized abdominal pain greatest at the drain insertion site along the left side of her abdomen. She denies any nausea or vomiting but notes a poor appetite. She notes that she feels generally fatigued and tired. She notes that her ostomy has been functioning normally. She denies any dysuria. She does not report any other complaints other than what is stated above. At the time of my interview the patient appeared fatigued but she was in no distress. Allergies Allergy/AdvReac Type Severity Reaction Status Date / Time pineapple Allergy Severe anaphylaxis Verified 07/22/23 22:31 tomato Allergy Severe hives, Verified 07/22/23 22:31 throat tightness cantaloupe Allergy Intermediate Hives Verified 07/22/23 22:31 [place] Derivatives Allergy Intermediate hives Verified 07/22/23 22:31 clarithromycin Allergy Intermediate hives Verified 07/22/23 22:31 lemon Allergy Intermediate Hives Verified 07/22/23 22:31 lemon oil Allergy Intermediate Hives Verified 07/22/23 22:31 [place] Allergy Intermediate Hives Verified 07/22/23 22:31 naproxen Allergy Intermediate hives Verified 07/22/23 22:31 orange Allergy Intermediate Hives Verified 07/22/23 22:31 orange (food color) Allergy Intermediate Hives Verified 07/22/23 22:31 orange flavor Allergy Intermediate Hives Verified 07/22/23 22:31 orange juice Allergy Intermediate Hives Verified 07/22/23 22:31 Penicillins Allergy Intermediate hives Verified 07/22/23 22:31 latex Allergy Mild rash Verified 07/22/23 22:31 Home Medications Medication Instructions Recorded Confirmed Type brimonidine 0.1 % eye drops 1 drp OPB TID 05/12/19 07/22/23 History (Alphagan P) cholecalciferol (vitamin D3) 50 2,000 unit PO QAM 05/12/19 07/22/23 History mcg (2,000 unit) capsule (Vitamin D3) latanoprost 0.005 % eye drops 1 drp OPB HS 05/12/19 07/22/23 History (Xalatan) multivitamin 1 tab PO QAM 05/12/19 07/22/23 History ondansetron HCl 8 mg tablet 8 mg PO Q8H PRN Nausea 12/18/20 07/22/23 History prochlorperazine maleate 10 mg 10 mg PO Q6 PRN Nausea 12/18/20 07/22/23 History tablet allopurinol 100 mg tablet 200 mg PO DAILY 02/17/23 07/22/23 History potassium chloride 10 mEq 10 meq PO DAILY 02/17/23 07/22/23 History capsule,extended release Patient History Medical History 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, unproven Near syncope Acute hypokalemia ABILIO (acute kidney injury) UTI (urinary tract infection) Acute kidney injury superimposed on CKD Acute hypokalemia Borderline diabetes diet controlled Chronic ITP (idiopathic thrombocytopenia) platelet WNL on 06/01/20 labs Anemia chronic, baseline hgb 9-11 range per chart review 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, chemo currently Pancreatitis post-op (2014) Mucinous adenocarcinoma of appendix (~03/2013) 2013 Hyponatremia High cholesterol Surgical History Encounter for insertion of venous access port 2012 (subsequent removal) History of laparotomy USO + salipngectomy Hx laparoscopic cholecystectomy 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 Family History Other Diabetes Heart disease Hypertension Stroke Social History Smoking Status: Never smoker Second Hand Exposure: No; Do You Dip or Chew Tobacco: No; Hx Alcohol Use: Yes Alcohol type: other Hx Substance Use: No Preferred Language: Polish Communication Ability: Effective Visual Impairment: No Limitations Mass Spectroscopist Required: No Beliefs That Will Affect Care: None marital status: Current Living Situation: Family Current Living Situation Comment: lives with son Kwadwo Feels Safe at Home: Yes Assistive Devices: None Review of Systems Constitutional: + fatigue; no fever and no chills Ear, Nose, Mouth, Throat: no hearing loss Respiratory: no cough Cardiovascular: no chest pain Gastrointestinal: + abdominal pain; no nausea and no vomit ing Genitourinary: no dysuria Musculoskeletal: no back pain Integumentary: no rash Neurologic: no localized weakness Physical Exam Constitutional: + thin; no acute distress ENMT: Ears: no hearing impairment Mouth: no oropharynx abnormality Neck: trachea midline Respiratory: normal respiratory effort; no respiratory distress and no labored breathing Cardiovascular: Rate/Rhythm: regular rate and regular rhythm Gastrointestinal (Abdomen): Patient's abdomen is soft, nonrigid, nondistended. She has an ostomy on the right side of her abdomen that appears to be functioning properly. A percutaneous drain is in place in the left side of her abdomen. There is no crepitus in the soft tissue near the drain insertion site. The drain collection bag is draining brown-colored fluid and appears to be patent. There is no rebound tenderness or guarding on her abdominal exam Musculoskeletal: No calf tenderness Neurologic: moves all extremities Psychiatric: A+Ox3, euthymic affect Results & Data Vital Signs (Past 12 Hours) Vital Signs Temp Pulse Resp BP Pulse Ox O2 Del Method 07/27/23 20:44 Room Air 07/27/23 20:02 36.8 C 81 16 106/62 98 Room Air 07/27/23 14:39 36.6 C 76 18 102/60 99 Room Air 07/27/23 13:08 Room Air PG Care Time/CCT Total # of Minutes Spent Total Time Spent with Patient: Total time spent is greater than 50% in coordination of care (as documented) at patient's floor/unit and/or counseling patient: Coding Level of Care Code 66855 IN/OBS CONSULT LVL 4,60M Diagnoses Intra-abdominal abscess K65.1
[2023-07-27] MEDS ORDERED: HYDROmorphone INJ 0.5 MG/0.5 ML SYR IV STA (23:22)
[2023-07-28] MEDS: LACTATED RINGER'S 1,000 ML IV SCH ×3 (03:22→19:23)
[2023-07-28] MEDS: metroNIDAZOLE 500 MG TAB PO SCH ×3 (05:17→21:48)
[2023-07-28] MEDS ORDERED: diphenhydrAMINE Capsule 25 MG CAP PO ONE (06:22)
[2023-07-28 08:24] LABS: Basophils # (auto) 0.05 K/uL (0.00-0.20); Basophils % (auto) 0.7 %; Eosinophils # (auto) 0.09 K/uL (0.00-0.50); Eosinophils % (auto) 1.2 %; Hematocrit (blood only) 27.7 % (37.0-47.0); Hemoglobin 8.9 g/dl (12.0-16.0); Immature Granulocytes # (auto) 0.05 K/uL (0.01-0.20); Immature Granulocytes % (auto) 0.7 %; Lymphocytes # (auto) 0.81 K/uL (1.20-3.40); Lymphocytes % (auto) 10.5 %; Mean Corpuscular Hemoglobin 29.9 pg (25.0-34.0); Mean Corpuscular Hgb Conc 32.1 g/dL (32.0-36.0); Mean Platelet Volume 12.3 fL (9.4-12.4); Monocytes % (auto) 9.1 %; Neutrophils # (auto) 5.99 K/uL (1.40-6.50); Neutrophils % (auto) 77.8 %; Platelet Count 123 K/uL (130-400); RDW Coefficient of Variation 16.9 % (11.5-14.5); RDW Standard Deviation 57.3 fL (36.4-46.3); Red Blood Count 2.98 M/uL (4.20-5.40); White Blood Count 7.69 K/ul (4.8-10.8)
[2023-07-28 08:43] LABS: Albumin Globulin Ratio 0.7 (0.9-2); Albumin Level 2.2 gm/dl (3.4-5.0); BUN Creatinine Ratio 16.5 (10-20); Bilirubin,Total 3.7 mg/dl (0.2-1.0); Calcium 8.2 mg/dl (8.6-10.3); Creatinine Clr Calc Pharmacy 24.3 ml/min; Est GFR (African American) 38.4 ml/min; Est GFR (Non-African American) 33.2 ml/min; Magnesium 1.5 mg/dl (1.7-2.4); Potassium 3.9 mmol/L (3.5-5.1); Total Protein 5.2 gm/dl (6.0-8.3)
[2023-07-28] MEDS: ACETAMINOPHEN 325 MG TAB PO PRN (09:38)
[2023-07-28] MEDS: allopurinoL 100 MG TAB PO SCH (09:39)
[2023-07-28] MEDS: HEPARIN SOD 5,000 UNIT/0.5 ML VIAL SQ SCH ×2 (09:51→20:01)
--- NOTE | 2023-07-28 10:02 | Surgery Progress Note ---
Date of Service July 28, 2023 Assessment & Plan (1) Abscess: Plan: Patient reports abdominal pain rates it a 5/10 at IR drain site Has not taken PO pain meds, encouraged to do so Reports episode of emesis yesterday, however feels hungry today Patient with metastatic appendical carcinoma Has had a chronic IR drain for abdominal abscess IR drain had dislodged which brought pt back to hospital. IR drain was replaced on 07/23/23, currently draining light brown liquid Would recommend patient continue antibiotics and IR drain Pt reports trying to set up home nursing to help manage IR drain on discharge CT scan from 07/22/23 showing IMPRESSION: 1. Interval placement of a percutaneous drain within the previously described left iliopsoas fluid collection/abscess. The main component of the collection is similar to prior exam however superior extension along the left psoas muscle with associated gas has increased. Gas within the adjacent left retroperitoneum has also increased. Overall, the findings represent mild increase in size of this fluid collection may originate from a leak at the rectal stump. Increase in associated gas could be due to persistent leak or drain placement. 2. Component of the fluid collection again extends toward the bladder. Increase in bladder gas suggests underlying fistula to the bladder. 3. Interval decrease in left hydronephrosis. Interval development of left urothelial thickening which may reflect an an ascending infectious process. 4. No evidence for a bowel obstruction. 5. No change in multiple metastatic implants within the abdomen and pelvis. CT reading possible leak at rectal stump, and underlying fistula to the bladder, if patient was seeking surgical intervention she would need transferred to a tertiary care center that has colorectal surgery. Would recommend patient continue antibiotics on discharge, may benefit from ID consult Pt reports trying to set up home nursing to help manage IR drain on discharge No acute surgical intervention at this facility General surgery will sign off at this time, please call with questions or concerns Admission and Anticipated Discharge Date Admission Date: July 23, 2023 Supervising Physician Co-Signing Physician Notes Patient denies intra-abdominal pain, states this is resolved. Noted some discomfort at the IR drain site that is also improved since the drain has been replaced. Drain is actively draining. Leukocytosis resolved. Keep drain for palliation, keeping leak and infection control. She is not obstructed or actively bleeding, bowel leak is controlled and draining. Non-operative Continue to flush drain daily to avoid obstruction again and leakage around the tubing which causes pain at the drain site. Follow up with PCP and oncologist as outpatient. Drain must be maintained. If drain is dislodged again, they should refer her to IR for appointment for new drain placement right away. Subjective Patient reports abdominal pain rates it a 5/10 at IR drain site Has not taken PO pain meds Reports episode of emesis yesterday Review of Systems Constitutional: no fever and no chills Gastrointestinal: + abdominal pain, + nausea and + vomitin g nausea and vomiting 07/27/23 none today. + abd. pain 5/10 Physical Exam Physical Exam: alert awake Constitutional: cooperative and comfortable; no acute distress Respiratory: normal respiratory effort and able to speak in complete sentences; no respiratory distress Cardiovascular: Rate/Rhythm: + tachycardic (99) Gastrointestinal (Abdomen): Inspection/Auscultation: + abdominal surgical drain present (IR drain LLQ , ostomy right ); abdomen not distended Percussion/Palpation: + abdomen tender (around IR drain ) and abdomen soft; no guarding Results & Data Vital Signs (Past 12 Hours) Vital Signs Temp Pulse Resp BP Pulse Ox O2 Del Method 07/28/23 09:09 97.5 F L 99 H 16 101/63 100 Room Air Diagnostic Findings [place], [place] [phone] CT Scan Report Patient: STANISLAV DASH Admit Date: 07/22/23 MR#: [id number] Address1: [address] Acct ID:[id number] Address2: Date: 1960 [facility] Zip: [place] [address] Age: 63 Location: CT Sex: F Room/Bed: Att Phy: Winter Garza DO Diagnosis: evaluate abscess/fluid collections Breann Phy: Sonal Chisholm M.D. Service Date: 07/22/23 [facility] Phy: Interpreting Phy: Dillan Buckley [facility] Phy: Ordering Phy: Winter Garza DO cc: ~ CT OF THE ABDOMEN AND PELVIS WITHOUT CONTRAST CLINICAL HISTORY: Evaluate abscess/fluid collections. Appendiceal adenocarcinoma. COMPARISON STUDY: CT of the abdomen and pelvis June 09, 2023. TECHNIQUE: Axial images of the abdomen and pelvis were obtained without IV contrast. Images were reviewed in the axial, sagittal, and coronal planes. Automated exposure control was utilized for the study. A dose lowering technique was utilized adhering to the principles of ALARA. FINDINGS: Lung bases are unremarkable. Evaluation of the abdomen and pelvis is suboptimal on this unenhanced exam. Multiple metastatic implants remain unchan ged. Biliary ductal dilatation within the left hepatic lobe is unchanged. No new implants are identified. Splenomegaly is unchanged. There are stable postoperative findings following subtotal colectomy with right lower quadrant ostomy. There is no evidence for a bowel obstruction. A left lower quadrant percutaneous drain is noted. The drain is within the previously described left iliopsoas fluid collection. The main component of this collection is similar in size to CT of June 09, 2023, measuring 6 x 3.9 cm. However, the superior extension along the left psoas with associated gas has increased. Extraluminal gas within the left retroperitoneum has also increased. Component of the collection again extends toward the bladder. Increase in bladder gas is noted. The collection is likely contiguous with the rectal stump. The findings suggest a leak at the rectal stump. There is also a small amount of gas within the vagina. No new fluid collections are present. Left hydronephrosis has improved. There is mild residual left hydronephrosis. Left-sided urothelial thickening has developed. There is no right hydronephrosis. There are no urinary calculi. Pelvic calcifications represent phleboliths. IMPRESSION: 1. Interval placement of a percutaneous drain within the previously described left iliopsoas fluid collection/abscess. The main component of the collection is similar to prior exam however superior extension along the left psoas muscle with associated gas has increased. Gas within the adjacent left retroperitoneum has also increased. Overall, the findings represent mild increase in size of this fluid collection may originate from a leak at the rectal stump. Increase in associated gas could be due to persistent leak or drain placement. 2. Component of the fluid collection again extends toward the bladder. Increase in bladder gas suggests underlying fistula to the bladder. 3. Interval decrease in left hydronephrosis. Interval development of left urothelial thickening which may reflect an an ascending infectious process. 4. No evidence for a bowel obstruction. 5. No change in multiple metastatic implants within the abdomen and pelvis. ACT 112: Negative or not required by law. Electronically signed by: Dillan Buckley M.D. 07/22/2023 12:46 PM Dictated: 07/22/23 1220 Transcribed: 07/22/23 1229 PG Care Time/CCT Total # of Minutes Spent Total Time Spent with Patient: Total time spent is greater than 50% in coordination of care (as documented) at patient's floor/unit and/or counseling patient: Coding [place] [address] SUB INP/OBS CARE 2/35MIN Patient Type Established Diagnoses Abscess L02.91 Time Spent (min) 40 Comment Explaining condition to patient around her PSHx and current oncological status
[2023-07-28] MEDS: MAGNESIUM SULFATE / D5W 1 GM/100 ML BAG IV SCH ×2 (10:28→12:30)
--- NOTE | 2023-07-28 11:18 | Hospitalist Progress Note ---
Date of Service July 28, 2023 Assessment & Plan (1) Intra-abdominal abscess: Plan: Pt is a 63 yo female with PMH of ?enterovesical fistula, CKD, chronic ITP, chronic anemia, and appendiceal cancer s/p removal and chemo presenting to the hospital because her abscess drain fell out and she needed it replaced. Lightheadedness/shakiness - began 07/27 per pt and is unusual for her - POC glucose 140s; BP 100s/60s; s/p fluid resuscitation - lightheadedness resolved, minimal shakiness still - continue to monitor - PT/OT to eval Intra-abdominal abscess - present since middle of May 2023 - drain fell out and was replaced 07/23 - continue antibiotic coverage: cefepime and flagyl - leukocytosis up to 14 and mildly hypotensive consistently (which appears chronic for her) - wound cx with pinpoint growth, currently re-incubating: showing moderate counts mixed probable gastrointestinal microbiota- awaiting final cx results - anticipate discharging on 3 week course of PO cefdinir/flagyl for recurrence of psoas abscess - CM aware that home health will need set up/follow up with gen surg for drain management - with continued pain and blood in her drain bag, will order CTAP w/ oral contrast ABILIO on CKD Patient follows with nephrology. She has had worsening renal function. Patient reports normal UOP and intake. 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 Fierro (last visit 07/03/2023) - advanced disease; not in current chemotherapy treatment Hypokalemia, resolved - replete as necessary Hyperbilirubinemia in setting of known liver mets - elevated alk phos with relativity normal AST/ALT, per chart review she has had elevated alk phos chronically over the past few years - CTAP with chronic biliary duct dilation Diet: regular VTE ppx: heparin Code: full Dispo: once stable, will d/c home with drain care (2) CKD (chronic kidney disease): (3) Anemia: (4) Enterovaginal fistula: (5) Chronic ITP (idiopathic thrombocytopenia): (6) Mucinous adenocarcinoma of appendix: Admission and Anticipated Discharge Date Admission Date: July 23, 2023 Supervising Physician Co-Signing Physician Notes I personally examined the patient and verified all amin points of history and exam, discussed case, and agree with decision making with Dr Brannon Still feeling a little bit weak and shaky but far less weak than yesterday and the overall oppressive lightheadedness is gone. Her appetite has improved some. She notes some bloody output and rather significant increase in drainage from her IR placed abdominal drain. Separately notes feeling of lip swelling, none now. Vitals noted, in general she is awake and alert pleasant no distress. HEENT normocephalic atraumatic mucous membranes moist. Lips appear to not be swollen nor does her tongue. No stridor, breathing unlabored. Thin amount of serosanguineous fluid noted in her tube, with a fairly copious amount of light brown/yellow drainage in the bag. Intra-abdominal abscesscontinue antibiotics to cover GI corinna, continue drainage. Repeat CT. discussed antibioticsand low likelihood of a true allergic reaction, and likely need for ongoing metronidazole as an outpatients he expressed understanding and will continue to take and we will be called to reassess if she has anything that feels like swelling. Subjective Pt feeling better than yesterday. No longer feeling lightheaded. She does still endorse some shakiness. Per night team, pt endorses lip swelling after taking her second dose of metronidazole. The pt explains this morning that her lip swelling symptoms started yesterday around noon. Review of Systems Review of Systems: As per HPI Physical Exam Physical Exam: Constitutional: well appearing, no acute distress HEENT: normocephalic, no conjunctival injection CV: clinically well perfused, no LE edema Respiratory: no increased work of breathing MSK: no gross deformities noted Skin: warm, dry, no rashes Neuro: alert, oriented, no FND noted Psych: mood and affect congruent Abscess drain draining mucopurulent fluid. Results & Data Results & Data Vital Signs (Past 12 Hours) Vital Signs Temp Pulse Resp BP Pulse Ox O2 Del Method 07/28/23 09:09 36.4 C L 99 H 16 101/63 100 Room Air Resident Activity Tracking Resident Involvement: Resident Care Provided Care Provided: Adult Hospital Medicine (2) CKD (chronic kidney disease) Chronic kidney disease stage: stage 3 (moderate) Chronic kidney disease stage 3 subtype: stage 3b (GFR 30-44) Qualified Code(s): N18.32 - Chronic kidney disease, stage 3b
--- NOTE | 2023-07-28 16:37 | CT Scan Report ---
CT abd pelvis oral con only CLINICAL HISTORY: intraabdominal abscess TECHNIQUE: Helical axial images of the abdomen and pelvis were obtained. Automated dose lowering tech niques and/or adjustment according to patient size were utilized for this exam. This exam was perfor med without intravenous contrast. CT DOSE: 499.9 mGy.cm COMPARISON: Comparison is made to CT abdomen pelvis 07/22/2023 FINDINGS: Lower chest: Bibasilar atelectasis versus scarring is seen. Liver: Innumerable hypodensities, some with calcifications, are unchanged. Gallbladder and biliary tree: Patient is status post cholecystectomy. Physiologic prominence of the b iliary ducts is noted. Pancreas: Unremarkable, no focal lesions. Spleen: Hypodense exophytic lesions in the spleen are unchanged from prior exam. Adrenals: Unremarkable. Kidneys and ureters: Unremarkable. Bladder: Bladder is under distended with a focus of gas, findings may represent a fistula to the edward cent abscess. Reproductive organs: Unremarkable. Bowel: Thickening of multiple loops of bowel seen. A hiatal hernia is seen. Postsurgical changes of a subtotal colectomy with right lower quadrant ostomy. Lymph nodes Retroperitoneal: Unremarkable. Pelvic: Unremarkable. Mesenteric: Unremarkable. Peritoneum: Redemonstration of a left retroperitoneal abscess which is drained by a catheter and appe ars to contact the bladder. Small bowel involvement cannot be entirely excluded. Vessels: Atherosclerotic calcifications are seen. Abdominal wall: Unremarkable. Bones: Minimal degenerative changes are seen. IMPRESSION: 1. Redemonstration of a left iliopsoas fluid collection/abscess with a drainage catheter. This appea rs similar in size to prior exam. Again noted is likely fistulous connection to the bladder and absen ce of a fat plane with multiple loops of small bowel. 2. Previously noted thickening of the left ureter is no longer seen, suggestive of resolution of any ascending infection. 3. Multiple metastatic implants in the abdomen and pelvis are unchanged from prior exam. 4. Postsurgical changes in the bowel as above. 5. Additional findings as above. ACT 112: Negative or not required by law. Electronically signed by: Chavo Arreola M.D. 07/28/2023 4:35 PM
--- NOTE | 2023-07-28 18:25 | Billing Data ---
Date of Service July 28, 2023 Coding Level of Care Code 00408 SUB INP/OBS CARE
--- NOTE | 2023-07-28 18:25 | Billing Data ---
Date of Service July 28, 2023 Coding Level of Care Code 07255 SUB INP/OBS CARE
[2023-07-28] MEDS: LATANOPROST 0.005% OP SOLN 2.5 ML BTL OPB SCH (20:01)
[2023-07-28] MEDS: CEFDINIR 300 MG CAP PO SCH (20:01)
[2023-07-29] MEDS: LACTATED RINGER'S 1,000 ML IV SCH ×2 (03:24→10:05)
[2023-07-29] MEDS: metroNIDAZOLE 500 MG TAB PO SCH ×2 (05:40→14:25)
[2023-07-29 07:47] LABS: Basophils # (auto) 0.03 K/uL (0.00-0.20); Basophils % (auto) 0.4 %; Eosinophils # (auto) 0.13 K/uL (0.00-0.50); Eosinophils % (auto) 1.7 %; Hematocrit (blood only) 25.5 % (37.0-47.0); Hemoglobin 8.7 g/dl (12.0-16.0); Immature Granulocytes # (auto) 0.04 K/uL (0.01-0.20); Immature Granulocytes % (auto) 0.5 %; Lymphocytes # (auto) 1.14 K/uL (1.20-3.40); Lymphocytes % (auto) 14.7 %; Mean Corpuscular Hemoglobin 30.4 pg (25.0-34.0); Mean Corpuscular Hgb Conc 34.1 g/dL (32.0-36.0); Mean Corpuscular Volume 89.2 fL (80.0-100.0); Mean Platelet Volume 11.4 fL (9.4-12.4); Monocytes # (auto) 0.81 K/uL (0.11-0.59); Monocytes % (auto) 10.5 %; Neutrophils # (auto) 5.58 K/uL (1.40-6.50); Neutrophils % (auto) 72.2 %; Platelet Count 96 K/uL (130-400); RDW Coefficient of Variation 16.5 % (11.5-14.5); RDW Standard Deviation 53.5 fL (36.4-46.3); Red Blood Count 2.86 M/uL (4.20-5.40); White Blood Count 7.73 K/ul (4.8-10.8)
--- NOTE | 2023-07-29 07:56 | Surgery Consultation ---
Date of Consultation July 29, 2023 Assessment & Plan (1) Abscess: Patient reports abdominal pain rates it a 5/10 at IR drain site Has not taken PO pain meds, encouraged to do so Reports episode of emesis yesterday, however feels hungry today Patient with metastatic appendical carcinoma Has had a chronic IR drain for abdominal abscess IR drain had dislodged which brought pt back to hospital. IR drain was replaced on 07/23/23, currently draining light brown liquid Would recommend patient continue antibiotics and IR drain Pt reports trying to set up home nursing to help manage IR drain on discharge CT scan from 07/22/23 showing IMPRESSION: 1. Interval placement of a percutaneous drain within the previously described left iliopsoas fluid collection/abscess. The main component of the collection is similar to prior exam however superior extension along the left psoas muscle with associated gas has increased. Gas within the adjacent left retroperitoneum has also increased. Overall, the findings represent mild increase in size of this fluid collection may originate from a leak at the rectal stump. Increase in associated gas could be due to persistent leak or drain placement. 2. Component of the fluid collection again extends toward the bladder. Increase in bladder gas suggests underlying fistula to the bladder. 3. Interval decrease in left hydronephrosis. Interval development of left urothelial thickening which may reflect an an ascending infectious process. 4. No evidence for a bowel obstruction. 5. No change in multiple metastatic implants within the abdomen and pelvis. CT reading possible leak at rectal stump, and underlying fistula to the bladder, if patient was seeking surgical intervention she would need transferred to a tertiary care center that has colorectal surgery. Would recommend patient continue antibiotics on discharge, may benefit from ID consult Pt reports trying to set up home nursing to help manage IR drain on discharge No acute surgical intervention at this facility General surgery will sign off at this time, please call with questions or concerns History of Present Illness Reason for Consultation: Abscess, abdominal pain Attending Physician: Alfonso Encarnacion DO Allergies Allergy/AdvReac Type Severity Reaction Status Date / Time pineapple Allergy Severe anaphylaxis Verified 07/22/23 22:31 tomato Allergy Severe hives, Verified 07/22/23 22:31 throat tightness cantaloupe Allergy Intermediate Hives Verified 07/22/23 22:31 [place] And Derivatives Allergy Intermediate hives Verified 07/22/23 22:31 clarithromycin Allergy Intermediate hives Verified 07/22/23 22:31 lemon Allergy Intermediate Hives Verified 07/22/23 22:31 lemon oil Allergy Intermediate Hives Verified 07/22/23 22:31 seminole Allergy Intermediate Hives Verified 07/22/23 22:31 naproxen Allergy Intermediate hives Verified 07/22/23 22:31 orange Allergy Intermediate Hives Verified 07/22/23 22:31 orange (food color) Allergy Intermediate Hives Verified 07/22/23 22:31 orange flavor Allergy Intermediate Hives Verified 07/22/23 22:31 orange juice Allergy Intermediate Hives Verified 07/22/23 22:31 Penicillins Allergy Intermediate hives Verified 07/22/23 22:31 latex Allergy Mild rash Verified 07/22/23 22:31 Home Medications Medication Instructions Recorded Confirmed Type brimonidine 0.1 % eye drops 1 drp OPB TID 05/12/19 07/22/23 History (Alphagan P) cholecalciferol (vitamin D3) 50 2,000 unit PO QAM 05/12/19 07/22/23 History mcg (2,000 unit) capsule (Vitamin D3) latanoprost 0.005 % eye drops 1 drp OPB HS 05/12/19 07/22/23 History (Xalatan) multivitamin 1 tab PO QAM 05/12/19 07/22/23 History ondansetron HCl 8 mg tablet 8 mg PO Q8H PRN Nausea 12/18/20 07/22/23 History prochlorperazine maleate 10 mg 10 mg PO Q6 PRN Nausea 12/18/20 07/22/23 History tablet allopurinol 100 mg tablet 200 mg PO DAILY 02/17/23 07/22/23 History potassium chloride 10 mEq 10 meq PO DAILY 02/17/23 07/22/23 History capsule,extended release Patient History Medical History 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, unproven Near syncope Acute hypokalemia ABILIO (acute kidney injury) UTI (urinary tract infection) Acute kidney injury superimposed on CKD Acute hypokalemia Borderline diabetes diet controlled Chronic ITP (idiopathic thrombocytopenia) platelet WNL on 06/01/20 labs Anemia chronic, baseline hgb 9-11 range per chart review 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, chemo currently Pancreatitis post-op (2014) Mucinous adenocarcinoma of appendix (~03/2013) 2013 Hyponatremia High cholesterol Surgical History Encounter for insertion of venous access port 2012 (subsequent removal) History of laparotomy USO + salipngectomy Hx laparoscopic cholecystectomy 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 Family History Other Diabetes Heart disease Hypertension Stroke Social History Smoking Status: Never smoker Second Hand Exposure: No; Do You Dip or Chew Tobacco: No; Hx Alcohol Use: Yes Alcohol type: other Hx Substance Use: No Preferred Language: Slovenian Communication Ability: Effective Visual Impairment: No Limitations Employee Service Officer Required: No Beliefs That Will Affect Care: None marital status: Current Living Situation: Family Current Living Situation Comment: lives with son Kwadwo Feels Safe at Home: Yes Assistive Devices: None PG Care Time/CCT Total # of Minutes Spent Total Time Spent with Patient: Total time spent is greater than 50% in coordination of care (as documented) at patient's floor/unit and/or counseling patient: Coding Diagnoses Abscess L02.91
[2023-07-29 08:13] VITALS: O2SAT 100
[2023-07-29 08:15] LABS: Albumin Globulin Ratio 0.7 (0.9-2); Albumin Level 2.3 gm/dl (3.4-5.0); BUN Creatinine Ratio 13.6 (10-20); Bilirubin,Total 3.5 mg/dl (0.2-1.0); Calcium 8.2 mg/dl (8.6-10.3); Creatinine Clr Calc Pharmacy 22.6 ml/min; Est GFR (African American) 35.3 ml/min; Est GFR (Non-African American) 30.5 ml/min; Globulin 3.2 gm/dl (2.5-4.0); Magnesium 1.8 mg/dl (1.7-2.4); Potassium 3.8 mmol/L (3.5-5.1); Total Protein 5.5 gm/dl (6.0-8.3)
[2023-07-29] MEDS: allopurinoL 100 MG TAB PO SCH (08:25)
[2023-07-29] MEDS: HEPARIN SOD 5,000 UNIT/0.5 ML VIAL SQ SCH (08:25)
--- NOTE | 2023-07-29 14:16 | Ultrasound Report ---
US venous doppler LE BI CLINICAL HISTORY: LE edema, active cancer and immobility TECHNIQUE: Bilateral lower extremity real-time compression venous ultrasound with Color Doppler imagi ng. Utilizing real-time ultrasonic imaging multiple real time high-resolution ultrasonic images with compression and noncompression maneuvers of the deep venous system in addition to color doppler imagi ng were performed from the common femoral vein through the proximal calf veins. COMPARISON: Comparison is made to bilateral venous Doppler ultrasound 04/13/2013 FINDINGS/IMPRESSION: Currently there is normal compressibility of the deep venous system from the common femoral vein thro ugh the proximal calf veins. Limited evaluation of calf veins due to subcutaneous edema. ACT 112: Negative or not required by law. Electronically signed by: Chavo Arreola M.D. 07/29/2023 2:14 PM
[2023-07-29 14:32] VITALS: RESP 16; TEMP 98.4
--- NOTE | 2023-07-29 14:40 | Discharge Summary ---
Date of Service July 29, 2023 Admission HPI Per Admitting Provider Brooke Vasquez is a 63yo female with history of appendiceal carcinoma with remote history of bowel resection with ileostomy placement, most recently admitted to [facility] with a rectal stump abscess s/p IR drain placement on 06/11/23. Patient completed treatment with antibiotics without difficulty. She reports that her drain put out minimal output since its placement. She has been following with General Surgery for drain management and monitoring of the abscess. She had a CT of the abdomen performed today to confirm drain placement - found to have superior extension along the left psoas muscle with associated gas which has increased in size. A component of the fluid collection extended to the bladder suggesting underlying fistula. She was then seen by Nephrology for routine followup of her CKD and referred to General Surgery due to the CT findings. In transit, her drain actually became loose and fell out. Patient denies fever, chills, rigors. Denies abdominal pain. There has been some discharge from the drain site. No additional complaints at this time. She reports normal UOP. Normal PO intake In the ER patient afebrile, HD stable Admission Exam Per Admitting Provider General: patient resting comfortably, NAD, non-toxic in appearance, AA&O x 4 Skin: warm, dry, intact, no rashes or lesions HEENT: NC/AT, PERRL, EOMI, anicteric sclera, conjunctiva without injection, external ear normal to inspection and nontender, nares patent, moist mucus membranes, dentition intact, no oropharyngeal lesions, neck supple, trachea midline, no LAD, no thyromegaly, no JVD Heart: +S1/S2, regular, no m/r/g, right chest port in place, no redness or tenderness Lungs: equal air entry bilaterally, no rales/rhonchi/wheezes Abd: +BS, soft, NT/ND, colostomy in place with normal output. Drain tract with minimal discharge Ext: warm, 2+ pulses in UE/LE bilaterally, no clubbing/cyanosis or edema Neuro: nonfocal, patient AA&O x 4, speech intact, no facial droop, moving all extremities on command with equal strength 5/5 Principal Diagnosis replacement of intra-abdominal abscess drain Discharge Exam Constitutional: well appearing, no acute distress HEENT: normocephalic, no conjunctival injection CV: regular rhythm, regular rate, no murmur, bilateral non pitting edema of LE with L>R Respiratory: Clear to auscultation bilaterally. No rhonchi, wheezes, or crackles. No increased work of breathing MSK: no gross deformities noted Skin: warm, dry, no rashes Neuro: alert, oriented, no FND noted Discharge Data Allergies Allergy/AdvReac Type Severity Reaction Status Date / Time pineapple Allergy Severe anaphylaxis Verified 07/22/23 22:31 tomato Allergy Severe hives, Verified 07/22/23 22:31 throat tightness cantaloupe Allergy Intermediate Hives Verified 07/22/23 22:31 [place] And Derivatives Allergy Intermediate hives Verified 07/22/23 22:31 clarithromycin Allergy Intermediate hives Verified 07/22/23 22:31 lemon Allergy Intermediate Hives Verified 07/22/23 22:31 lemon oil Allergy Intermediate Hives Verified 07/22/23 22:31 [place] Allergy Intermediate Hives Verified 07/22/23 22:31 naproxen Allergy Intermediate hives Verified 07/22/23 22:31 orange Allergy Intermediate Hives Verified 07/22/23 22:31 orange (food color) Allergy Intermediate Hives Verified 07/22/23 22:31 orange flavor Allergy Intermediate Hives Verified 07/22/23 22:31 orange juice Allergy Intermediate Hives Verified 07/22/23 22:31 Penicillins Allergy Intermediate hives Verified 07/22/23 22:31 latex Allergy Mild rash Verified 07/22/23 22:31 Consultations 07/22/23 23:47 ED Decision to Admit Stat 07/23/23 02:57 Consult Radiology Routine 07/27/23 18:16 Consult General Surgery Routine Ordered Studies 07/23/23 09:[address] periton/retro w/gdnce Routine 07/26/23 15:[address] [CT head/brain wo con] Urgent IMPRESSION: 1. No evidence for metastatic disease within the chest. 2. The abdominal metastases will be reported on the same day abdomen and pelvis CT. 07/28/23 11:51 CT abd pelvis oral con only Routine IMPRESSION: 1. Redemonstration of a left iliopsoas fluid collection/abscess with a drainage catheter. This appears similar in size to prior exam. Again noted is likely fistulous connection to the bladder and absence of a fat plane with multiple loops of small bowel. 2. Previously noted thickening of the left ureter is no longer seen, suggestive of resolution of any ascending infection. 3. Multiple metastatic implants in the abdomen and pelvis are unchanged from prior exam. 4. Postsurgical changes in the bowel as above. 5. Additional findings as above. 07/29/23 10:51 US venous doppler LE BI Urgent FINDINGS/IMPRESSION: Currently there is normal compressibility of the deep venous system from the common femoral vein through the proximal calf veins. Limited evaluation of calf veins due to subcutaneous edema. Hospital Course (1) Intra-abdominal abscess: Pt is a 63 yo female with PMH of ?enterovesical fistula, CKD, chronic ITP, chronic anemia, and appendiceal cancer s/p removal and chemo presenting to the hospital because her abscess drain fell out and she needed it replaced. Lightheadedness/shakiness - began 07/27 per pt and is unusual for her - POC glucose 140s; BP 100s/60s; s/p fluid resuscitation with 1.5L - lightheadedness resolved, minimal shakiness still upon discharge - PT/OT eval showed pt independence and ability to return home safely w/o acute rehab/SNF Intra-abdominal abscess - present since middle of May 2023 - drain fell out and was replaced 07/23 - leukocytosis up to 14 and mildly hypotensive consistently (which appears chronic for her) - wound cx with pinpoint growth showing moderate counts mixed probable gastroi ntestinal microbiota - d/t blood in her drain bag, repeat CTAP obtained 07/28 which showed stability - discharging on 3 week course of PO cefdinir 300 mg daily and flagyl 500 mg q8hr for recurrence of psoas abscess; recommend further discussion of length of ABX course/abscess management with surgery - d/c home with home health for drain management and close surgical f/u locally and with [facility] colorectal ABILIO on CKD Patient follows with nephrology. She has had worsening renal function. Patient reports normal UOP and intake. 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 Fierro (last visit 07/03/2023) - advanced disease; not in current chemotherapy treatment Hypokalemia, resolved - repleted as necessary Hyperbilirubinemia in setting of known liver mets - elevated alk phos with relativity normal AST/ALT, per chart review she has had elevated alk phos chronically over the past few years - CTAP with chronic biliary duct dilation Diet: regular VTE ppx: heparin Code: full Dispo: d/c home with home health drain care (2) CKD (chronic kidney disease): (3) Anemia: (4) Enterovaginal fistula: (5) Chronic ITP (idiopathic thrombocytopenia): (6) Mucinous adenocarcinoma of appendix: Total Time Total Time Spent Total Time Spent (In Minutes): <30 Discharge Plan Discharge Items Patient Disposition: Home - Home Health Services Reason For Visit: DRAIN REPLACEMENT Discharge Diagnosis: drain replacement, intra-abdominal abscess Activity: Per Instructions section Non-emergency contact: Primary Care Provider, Surgeon and Oncologist Call non-emergency contact if: you have any medication questions, your symptoms worsen, your pain is not controlled and your temperature is above 101 Follow-up/Referrals: Ney Chisholm [Primary Care Provider] - 08/06/23 3:00 pm (Dr. Garcia) Winter Garza DO [Physician] - 08/05/23 11:20 am Diet: Regular Addtl Attending Provider Instructions: You were admitted to the hospital for drain replacement. Your drain was replaced and you were treated with antibiotics. You will continue antibiotics for an extended course upon discharge. Due to the extent of your infection, it may be necessary to have the abscess surgical removed/drained. This will be discussed with your surgery follow ups outside of the hospital. Due to swelling in your legs and your high risk for blood clots, an ultrasound of your legs was performed prior to your discharge. This did not show any blood clots. The swelling is most likely due to inactivity and the amount of IV fluids you were receiving during your hospital stay. A discharge summary will be sent to your primary care physician to ensure continuity of care. Please bring this discharge summary with you to your next office appointment so that your provider can review it at that time. Medications: Your medication list has been reviewed and reconciled upon discharge to ensure accuracy and continuity of care. An updated list of all your medications is included with your hospital discharge paperwork. Please review this list closely and make note of any changes to your medications. - Continue cefdinir 300 mg each evening. Your next dose is due tonight. - Continue metronidazole (Flagyl) 500 mg every 8 hours. Your next dose is due at 10 PM tonight. - Continue all other medications as prior to your hospitalization. Follow up appointments: - Make a follow up appointment with your PCP within the next week. It is very important that you follow up with them shortly after discharge from the hospital. - It is very important that you keep close follow up with your surgery team. You have an appointment with Dr. Garza 08/05/2023 at 11:20AM. - You will also have an appointment set up to see a colorectal surgeon from [facility]. They will contact you with an appointment date and time. - Keep all of your follow up appointments as already scheduled. If you cannot make an appointment, notify your provider. CONTACT YOUR PRIMARY CARE PROVIDER if you experience any of the following: - Difficulty following your treatment plan - Difficulty taking any of your medications CALL 911 OR GO TO THE EMERGENCY DEPARTMENT if you experience any of the following: - Drain removal/dysfunction - Sudden, severe abdominal pain or nausea/vomiting - Severe chest pain or chest pain that radiates to your jaw or arm - Sudden, severe shortness of breath or difficulty breathing Pending Studies at Discharge: No Stand-Alone Forms: My [employer], Smoking Cessation Medications and DC Order Prescriptions: New metronidazole 500 mg Tablet 500 mg PO Q8 21 Days Qty: 63 0RF cefdinir 300 mg Capsule 300 mg PO HS 21 Days Qty: 21 0RF Continued multivitamin Tablet 1 tab PO QAM latanoprost [Xalatan] 0.005 % Drops 1 drp OPB HS brimonidine [Alphagan P] 0.1 % Drops 1 drp OPB TID cholecalciferol (vitamin D3) [Vitamin D3] 2,000 unit Capsule 2,000 unit PO QAM ondansetron HCl 8 mg Tablet 8 mg PO Q8H PRN (Reason: Nausea) prochlorperazine maleate 10 mg tablet 10 mg PO Q6 PRN (Reason: Nausea) potassium chloride 10 mEq capsule, extended release 10 meq PO DAILY allopurinol 100 mg tablet 200 mg PO DAILY Discharge Orders: Discharge Order (Routine); Ordered 07/29/23 Ordered By: Sharon Brannon Admission Data Admit Date/Time: 07/23/23 00:44 Attending Provider: Alfonso Encarnacion Admit Provider: Lissa Waldrop Primary Care Provider: Ney Chisholm Other Providers: Lissa Waldrop; Waldemar Maldonado; Winter Garza; [facility] Other Interventions: Discharge Summary Assessment (RN) Last Done: 07/29/23 15:28 Supervising Physician Co-Signing Physician Notes I personally examined the patient and verified all amin points of history and exam, discussed case, and agree with decision making with Dr Brannon Feels less weak and shaky, feels up to getting out of the hospital. Leg swelling is new, venous Dopplers negative for DVT. IR drain with ongoing output, no other new symptoms. Vitals noted, in general she is awake and alert pleasant no distress. HEENT normocephalic atraumatic mucous membranes moist. Breathing unlabored no accessory muscle use good effort. No lip or tongue or other mucosal swelling. Skin without rashes pallor or icterus. Neuro without focal deficits. Exam otherwise as above. Intra-abdominal abscessappears to be in what is her current baseline state. Drain is affecting ongoing drainage, antibiotics suppressing further infection, although unfortunately the abscess size does not appear to be improving. It is possible given the complexity of her lower abdominal situation that this might be the best treatment that can be rendered at the current time, and certainly she is stable/not in any type of an acute surgical crisis, but would ask that she be seen by tertiary colorectal surgery (she prefers [facility]), in addition to local surgery, given that any definitive treatment for this would likely have to be done tertiary. In the meantime she does appear to be safe/stable for homeshould return STANISLAV if the drain becomes dislodged, or if there are telltale signs that it is out of place such as reduced drainage. Obviously also should return right away if she feels worse with her weak/lightheaded/fatigue or with fevers chills sweats, or anything worsening with pain. Does not appear to have had any allergic reactions to antibioticscontinue cefdinir and Flagyl. Resident Activity Tracking Resident Involvement: Resident Care Provided Care Provided: Adult [facility] Medicine
[2023-07-29 15:29] VITALS: BP 101/63; PULSE 92
--- NOTE | 2023-07-29 17:24 | Billing Data ---
Date of Service July 29, 2023 Coding Level of Care Code 60179 IN/OBS DISCH 30 MIN/LESS
--- NOTE | 2023-07-29 17:34 | Surgery Progress Note ---
Date of Service July 29, 2023 Assessment & Plan (1) Abscess: (2) Mucinous adenocarcinoma of appendix: Plan Drain is actively draining. Leukocytosis remains resolved. Keep drain for palliation, keeping leak and infection control. She is not obstructed or actively bleeding, bowel leak is controlled and draining. Non-operative in the setting of intra-abdominal metastatic disease which is likely the cause of this issue. Continue to flush drain daily to avoid drain obstruction again and leakage around the tubing which causes pain at the drain site. Follow up with PCP and oncologist as outpatient. Drain must be maintained. If drain is dislodged again, they should refer her to IR for appointment for new drain placement right away. Admission and Anticipated Discharge Date Admission Date: July 23, 2023 Subjective Patient seen. States she feels improved today. Has not had any episodes of lightheadedness. Tolerating a diet. Physical Exam Gastrointestinal (Abdomen): Drainage catheter with brown and sero-sanguinous drainage. Results & Data Vital Signs (Past 12 Hours) Vital Signs Temp Pulse Pulse Pulse Pulse Resp BP 07/29/23 15:28 36.9 C 92 H 84 90 83 16 114/70 07/29/23 14:31 36.9 C 90 16 114/70 07/29/23 13:13 37 C 92 H 14 118/75 07/29/23 08:11 37.0 C 79 14 100/61 BP Pulse Ox O2 Del Method 07/29/23 15:28 101/63 100 07/29/23 14:31 100 Room Air 07/29/23 13:13 100 Room Air 07/29/23 08:11 100 Room Air PG Care Time/CCT Total # of Minutes Spent Total Time Spent with Patient: Total time spent is greater than 50% in coordination of care (as documented) at patient's floor/unit and/or counseling patient: Coding Level of Care Code 47621 SUB INP/OBS CARE 09/17MIN Diagnoses Abscess L02.91 Mucinous adenocarcinoma of appendix C18.1
== END 2023-07-29 19:05 | disposition home health service (06) | DRG 919 ==
LOC: ED 18:34 → SUATTDRO 07-23 00:44 → 3W 07-23 00:44
DX: Y74.2 Prosthetic and other implants, materials and accessory general hospital and personal-use devices associated with adverse incidents; T85.628A Displacement of other specified internal prosthetic devices, implants and grafts, initial encounter; Z85.09 Personal history of malignant neoplasm of other digestive organs; Z93.2 Ileostomy status; E87.6 Hypokalemia; Y92.89 Other specified places as the place of occurrence of the external cause; C78.7 Secondary malignant neoplasm of liver and intrahepatic bile duct; E80.6 Other disorders of bilirubin metabolism; E87.1 Hypo-osmolality and hyponatremia; N82.4 Other female intestinal-genital tract fistulae; N17.9 Acute kidney failure, unspecified; N18.9 Chronic kidney disease, unspecified; D69.3 Immune thrombocytopenic purpura; K65.1 Peritoneal abscess; D72.829 Elevated white blood cell count, unspecified

== ENCOUNTER 2023-08-08 17:46 | Inpatient (IN) ==
[2023-08-08] MEDS ORDERED: CLOPIDOGREL BISULFATE 75 MG TAB PO ONE (18:03)
[2023-08-08 18:23] LABS: Basophils # (auto) 0.02 K/uL (0.00-0.20); Basophils % (auto) 0.5 %; Eosinophils # (auto) 0.02 K/uL (0.00-0.50); Eosinophils % (auto) 0.5 %; Hematocrit (blood only) 27.4 % (37.0-47.0); Hemoglobin 8.9 g/dl (12.0-16.0); Immature Granulocytes # (auto) 0.02 K/uL (0.01-0.20); Immature Granulocytes % (auto) 0.5 %; Lymphocytes # (auto) 0.44 K/uL (1.20-3.40); Mean Corpuscular Hemoglobin 30.2 pg (25.0-34.0); Mean Corpuscular Hgb Conc 32.5 g/dL (32.0-36.0); Mean Corpuscular Volume 92.9 fL (80.0-100.0); Mean Platelet Volume 11.9 fL (9.4-12.4); Monocytes # (auto) 0.36 K/uL (0.11-0.59); Monocytes % (auto) 8.2 %; Neutrophils # (auto) 3.53 K/uL (1.40-6.50); Neutrophils % (auto) 80.3 %; Platelet Count 97 K/uL (130-400); RDW Coefficient of Variation 17.6 % (11.5-14.5); RDW Standard Deviation 59.8 fL (36.4-46.3); Red Blood Count 2.95 M/uL (4.20-5.40); White Blood Count 4.39 K/ul (4.8-10.8)
--- NOTE | 2023-08-08 18:29 | Emergency Department Note ---
Impression & Plan Acute right-sided weakness, Anemia, Stroke-like symptoms, Elevated troponin, Elevated liver enzymes, Hypomagnesemia ED Provider Note NAME: STANISLAV DASH AGE: 63 SEX: F : 1960 ARRIVES VIA: Ambulance INFORMANT: [Patient][ems, nursing] ED PROVIDER(S): [Jerald Jane MD] CHIEF COMPLAINT: TIA symptoms HISTORY OF PRESENT ILLNESS: The patient is a 63-year-old female who states that at 1530, about 2 and half hours ago, she suddenly had right facial numbness, slurred speech, right arm and leg numbness and weakness. The symptoms lasted for about 15 minutes and then resolved. She does not have a headache. There has been no cough or cold or congestion. No shortness of breath. No abdominal pain. She does have a known intra-abdominal abscess that has a drain in place. She is currently on antibiotics. She states that the abscess and the drain have been doing well. The patient has no history of stroke, she has never had a TIA. She is not on any type of antiplatelet therapy. PMHx/PSHx/Social Hx: See Below PHYSICAL EXAM: GENERAL: Patient is in no acute distress. HEENT: No acute trauma, normocephalic atraumatic, mucous membranes moist, no nasal congestion. NECK: No stridor, no adenopathy, no meningismus, trachea is midline. LUNGS: Clear to auscultation bilaterally, no wheeze, no rhonchi, breath sounds equal. HEART: Without murmurs gallops or rubs, regular rate and rhythm. ABDOMEN: Soft, nontender, no peritonitis. There is a drain in place across the abdomen with some cloudy material in the bag EXTREMITIES: No cyanosis, full range of motion of all the joints without pain or difficulty. NEUROLOGIC: Oriented x 3, no acute motor or sensory deficits, no focal weakness. No speech slur or facial droop, no extremity drift or cerebellar dysfunction. Excellent historian. SKIN: No jaundice, no diaphoresis. DIFFERENTIAL DIAGNOSIS: Stroke or TIA, electrolyte imbalance, migraine, intracranial bleeding, dehydration, anemia, among others. EMERGENCY DEPARTMENT PROCEDURES: MEDICAL DECISION MAKING: There is no leukocytosis. The patient is anemic but this is baseline looking back at previous testing. Platelet count is low, this is consistent with her previous testing. INR is slightly high at 1.2. Potassium somewhat low at 3.3. CO2 is low at 18 suggesting some potential acidosis. Creatinine is elevated at 1.76, the creatinine elevation is baseline for the patient. Magnesium is low at 1.5. Calcium low at 8.1. Liver enzyme elevations were noted which have been documented before. ECG shows a normal sinus rhythm, no ischemia or dysrhythmia. Cardiac enzyme testing x 1 is slightly elevated. This troponin elevation could be secondary to mismatch versus cardiac injury or dysrhythmia. Brain CT showed no acute bleed or mass effect. On my exam, there were no focal neurologic findings. The patient's symptoms had resolved. The patient was given oral Plavix as stroke prevention. Aspirin was not given as she carries a naproxen allergy. She received IV Zofran for nausea, IV magnesium for the lower magnesium value. The patient's vital signs are quite stable. She has remained without return of symptoms. I do think further workup in the hospital for her presentation is reasonable. She describes what sounds like a TIA. I did speak with the patient and case management, the on-call hospitalist was consulted. Prior/Outside records/notes reviewed: EMS notes. ECG per my interpretation: Indication was possible stroke. The ECG shows normal sinus rhythm with a rate of 96. There is some baseline artifact. There is no ST elevation, no PVCs but the QTc is 454. Continuous Cardiac Monitoring per my interpretation: An order was placed for continuous cardiac monitoring. The monitor shows a rate of 99 with normal sinus rhythm. Imaging/x-ray results per my interpretation: Chronic Medical/Social conditions affecting care: Intra-abdominal abscess, chronic anemia. Care/Management discussed with: Case management, the on-call hospitalist. 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, chemo currently Pancreatitis post-op (2014) Mucinous adenocarcinoma of appendix (~03/2013) 2013 Hyponatremia High cholesterol Surgical History Encounter for insertion of venous access port 2012 (subsequent removal) History of laparotomy USO + salipngectomy Hx laparoscopic cholecystectomy 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 Family History Other Diabetes Heart disease Hypertension Stroke Social History Smoking Status: Never smoker Second Hand Exposure: No; Do You Dip or Chew Tobacco: No; Hx Alcohol Use: Yes Alcohol type: other Hx Substance Use: No Preferred Language: Bangladeshi Communication Ability: Effective Visual Impairment: No Limitations Vamp Seamer Required: No Beliefs That Will Affect Care: None marital status: Current Living Situation: Family Current Living Situation Comment: lives with son Kwadwo Feels Safe at Home: Yes Assistive Devices: None Allergies Allergies Allergy/AdvReac Type Severity Reaction Status Date / Time pineapple Allergy Severe anaphylaxis Verified 08/08/23 19:59 tomato Allergy Severe hives, Verified 08/08/23 19:59 throat tightness cantaloupe Allergy Intermediate Hives Verified 08/08/23 19:59 Scurry And Derivatives Allergy Intermediate hives Verified 08/08/23 19:59 clarithromycin Allergy Intermediate hives Verified 08/08/23 19:59 lemon Allergy Intermediate Hives Verified 08/08/23 19:59 lemon oil Allergy Intermediate Hives Verified 08/08/23 19:59 [place] Allergy Intermediate Hives Verified 08/08/23 19:59 naproxen Allergy Intermediate hives Verified 08/08/23 19:59 orange Allergy Intermediate Hives Verified 08/08/23 19:59 orange (food color) Allergy Intermediate Hives Verified 08/08/23 19:59 orange flavor Allergy Intermediate Hives Verified 08/08/23 19:59 orange juice Allergy Intermediate Hives Verified 08/08/23 19:59 Penicillins Allergy Intermediate hives Verified 08/08/23 19:59 latex Allergy Mild rash Verified 08/08/23 19:59 Home Meds Home Medications Medication Instructions Recorded Confirmed brimonidine 0.1 % eye drops 1 drp OPB TID 05/12/19 08/08/23 (Alphagan P) cholecalciferol (vitamin D3) 50 2,000 unit PO QAM 05/12/19 08/08/23 mcg (2,000 unit) capsule (Vitamin D3) latanoprost 0.005 % eye drops 1 drp OPB HS 05/12/19 08/08/23 (Xalatan) multivitamin 1 tab PO QAM 05/12/19 08/08/23 ondansetron HCl 8 mg tablet 8 mg PO Q8H PRN Nausea 12/18/20 08/08/23 prochlorperazine maleate 10 mg 10 mg PO Q6 PRN Nausea 12/18/20 08/08/23 tablet allopurinol 100 mg tablet 200 mg PO DAILY 02/17/23 08/08/23 potassium chloride 10 mEq 10 meq PO DAILY 02/17/23 08/08/23 capsule,extended release Previous Rx's Medication Instructions Recorded cefdinir 300 mg capsule 300 mg PO HS 3 weeks #21 caps 07/29/23 metronidazole 500 mg tablet 500 mg PO Q8 3 weeks #63 tabs 07/29/23 Results & Data (ED) Vital Signs Vital Signs - 24 hr 08/08/23 17:31 08/08/23 17:53 08/08/23 18:00 Pulse Rate 99 H 93 H Pulse Rate from SpO2 Sensor 98 H Pulse Rhythm Pulse Strength Respiratory Rate 28 H 19 Respiratory Effort / Characteristics Respiratory Depth Respiratory Pattern Blood Pressure 130/69 Blood Pressure Mean 89 Blood Pressure Position Pulse Oximetry 100 100 Oxygen Delivery Method Room Air Room Air Sepsis Recent Fever Within 48 Hours Sepsis New/Unexplained Change in Mental Status Sepsis Action Taken by Nursing 08/08/23 18:02 08/08/23 18:08 08/08/23 18:10 Pulse Rate 97 H 99 H 88 Pulse Rate from SpO2 Sensor Pulse Rhythm Regular Pulse Strength Normal Respiratory Rate 20 23 Respiratory Effort / Characteristics Non-Labored Spontaneous Respiratory Depth Normal Respiratory Pattern Regular Blood Pressure 130/69 Blood Pressure Mean 89 Blood Pressure Position Lying Pulse Oximetry 100 Oxygen Delivery Method Room Air Sepsis Recent Fever Within 48 Hours No Sepsis New/Unexplained Change in Mental Status N/A Sepsis Action Taken by Nursing No Action Required 08/08/23 18:20 08/08/23 18:30 08/08/23 18:50 Pulse Rate 86 112 H 92 H Pulse Rate from SpO2 Sensor 92 H Pulse Rhythm Pulse Strength Respiratory Rate 19 14 23 Respiratory Effort / Characteristics Respiratory Depth Respiratory Pattern Blood Pressure Blood Pressure Mean Blood Pressure Position Pulse Oximetry 99 99 Oxygen Delivery Method Room Air Room Air Sepsis Recent Fever Within 48 Hours Sepsis New/Unexplained Change in Mental Status Sepsis Action Taken by Half-Way Medications Current Medication List: was personally reviewed by me Laboratory Data Attestation: I reviewed the patient's lab results. 08/08/23 18:10 08/08/23 18:10 Lab Results 08/08/23 08/08/23 Range/Units 17:52 18:10 WBC 4.39 L (4.8-10.8) K/ul RBC 2.95 L (4.20-5.40) M/uL Hgb 8.9 L (12.0-16.0) g/dl Hct 27.4 L (37.0-47.0) % MCV 92.9 (80.0-100.0) fL MCH 30.2 (25.0-34.0) pg MCHC 32.5 (32.0-36.0) g/dL RDW Std Deviation 59.8 H (36.4-46.3) fL RDW Coeff of Veda 17.6 H (11.5-14.5) % Plt Count 97 L (130-400) K/uL MPV 11.9 (9.4-12.4) fL Immature Gran % (Auto) 0.5 % Neut % (Auto) 80.3 % Lymph % (Auto) 10.0 % [place] % (Auto) 8.2 % Eos % (Auto) 0.5 % Baso % (Auto) 0.5 % Neut # (Auto) 3.53 (1.40-6.50) K/uL Lymph # (Auto) 0.44 L (1.20-3.40) K/uL [place] # (Auto) 0.36 (0.11-0.59) K/uL Eos # (Auto) 0.02 (0.00-0.50) K/uL Baso # (Auto) 0.02 (0.00-0.20) K/uL Immature Gran # (Auto) 0.02 (0.01-0.20) K/uL PT 13.5 H (9.0-12.0) Seconds INR 1.2 H (0.9-1.1) APTT 30 (21-31) Seconds PTT Ratio 1.1 Sodium 136 (136-145) mmol/L Potassium 3.3 L (3.5-5.1) mmol/L Chloride 111 H (98-107) mmol/L Carbon Dioxide 18 L (21-32) mmol/L Anion Gap 7 (3-11) BUN 20 (6-23) mg/dl Creatinine 1.76 H (0.6-1.2) mg/dl Est Cr Clr Drug Dosing 23.5 ml/min Est GFR ( Amer) 35.3 ml/min Est GFR (Non-Af Amer) 30.5 ml/min BUN/Creatinine Ratio 11.4 (10-20) Glucose 212 H (70-99(Fasting)) mg/dl POC Glucose 208 H (70-99) mg/dl Calcium 8.1 L (8.6-10.3) mg/dl Magnesium 1.5 L (1.7-2.4) mg/dl Total Bilirubin 3.0 H (0.2-1.0) mg/dl AST 58 H (13-39) U/L ALT 19 (7-52) U/L Alkaline Phosphatase 669 H (34-104) U/L Troponin I High Sens 66.5 H* (0-14) pg/ml Total Protein 6.7 (6.0-8.3) gm/dl Albumin 2.9 L (3.4-5.0) gm/dl Globulin 3.8 (2.5-4.0) gm/dl Albumin/Globulin Ratio 0.8 L (0.9-2) Administered Medications Discontinued Medications Clopidogrel Bisulfate (Clopidogrel Bisulfate 75 Mg Tab) 75 mg PO NOW ONE Stop: 08/08/23 18:04 Last Admin: 08/08/23 18:28 Dose: 75 mg Documented By: PARCEL CARRIER Ondansetron HCl (Ondansetron Inj 2 Mg/Ml 2 Ml Vial) 4 mg IV NOW STA Stop: 08/08/23 18:31 Last Admin: 08/08/23 18:32 Dose: 4 mg Documented By: PARCEL CARRIER Ondansetron HCl (Ondansetron Inj 2 Mg/Ml 2 Ml Vial) Confirm Administered Dose 4 mg .ROUTE .STK-MED ONE Stop: 08/08/23 18:32 Last Admin: 08/08/23 18:32 Dose: Not Given Documented By: PARCEL CARRIER Imaging Data Radiologist's Impression: Head CT 08/08/23 17:59 CT SCAN OF THE BRAIN WITHOUT IV CONTRAST CLINICAL HISTORY: Neurological deficit. Stroke like symptoms. COMPARISON STUDY: CT of the brain dated 07/26/2023. TECHNIQUE: Unenhanced axial CT scan of the brain is performed from the vertex to the skull base. A dose lowering technique was utilized adhering to the principles of ALARA. FINDINGS: Brain parenchyma: There is minimal microangiopathic change. There is no hemorrhage, mass effect, or evidence of acute territorial ischemia by CT criteria. Mclean-white matter differentiation is preserved. No extra-axial fluid collection is seen. Ventricles, sulci, cisterns: Normal in configuration. Intracranial vasculature: There is atherosclerotic calcification of the cavernous carotid and vertebral arteries. Calvarium: Unremarkable. Sinuses and mastoids: There is near complete opacification of the right sphenoid sinus. Thickening and sclerosis of the sinus wall suggests chronicity. The remaining visualized paranasal sinuses are clear. The mastoid air cells are well pneumatized. Orbits: The bony orbits are grossly intact. IMPRESSION: There is no hemorrhage, mass effect, or evidence of acute territorial ischemia by CT criteria. ACT 112: Negative or not required by law. Electronically signed by: Jerald Sanders M.D. 08/08/2023 6:51 PM Discharge Plan Visit Data Chief Complaint: TIA Symptoms ED Provider: Jerald Jane Discharge Problem: Acute right-sided weakness, Anemia, Stroke-like symptoms, Elevated troponin, Elevated liver enzymes, Hypomagnesemia Patient Disposition: Admitted As Inpatient Condition: Fair Forms Stand Alone Forms: On License Of [facility] Prescriptions Prescriptions: No Action multivitamin Tablet 1 tab PO QAM latanoprost [Xalatan] 0.005 % Drops 1 drp OPB HS brimonidine [Alphagan P] 0.1 % Drops 1 drp OPB TID cholecalciferol (vitamin D3) [Vitamin D3] 2,000 unit Capsule 2,000 unit PO QAM ondansetron HCl 8 mg Tablet 8 mg PO Q8H PRN (Reason: Nausea) prochlorperazine maleate 10 mg tablet 10 mg PO Q6 PRN (Reason: Nausea) potassium chloride 10 mEq capsule, extended release 10 meq PO DAILY allopurinol 100 mg tablet 200 mg PO DAILY metronidazole 500 mg Tablet 500 mg PO Q8 21 Days Qty: 63 0RF cefdinir 300 mg Capsule 300 mg PO HS 21 Days Qty: 21 0RF Referrals Referrals: Ney Chisholm [Primary Care Provider] - Discharge Problem: Anemia Qualifiers: Anemia type: unspecified type Qualified Code(s): D64.9 - Anemia, unspecified
[2023-08-08] MEDS ORDERED: ONDANSETRON INJ 2 MG/ML 2 ML VIAL IV STA (18:30)
[2023-08-08] MEDS ORDERED: ONDANSETRON INJ 2 MG/ML 2 ML VIAL ONE (18:31)
[2023-08-08 18:38] LABS: Albumin Globulin Ratio 0.8 (0.9-2); Albumin Level 2.9 gm/dl (3.4-5.0); BUN Creatinine Ratio 11.4 (10-20); Calcium 8.1 mg/dl (8.6-10.3); Creatinine Clr Calc Pharmacy 23.5 ml/min; Est GFR (African American) 35.3 ml/min; Est GFR (Non-African American) 30.5 ml/min; Globulin 3.8 gm/dl (2.5-4.0); Magnesium 1.5 mg/dl (1.7-2.4); Potassium 3.3 mmol/L (3.5-5.1); Total Protein 6.7 gm/dl (6.0-8.3)
[2023-08-08] MEDS ORDERED: MAGNESIUM SULFATE / D5W 1 GM/100 ML BAG IV STA (18:47)
[2023-08-08 18:48] LABS: Troponin I High Sensitivity 66.5 pg/ml (0-14)
[2023-08-08 18:50] LABS: INR 1.2 (0.9-1.1); Partial Thromboplastin Ratio 1.1; Partial Thromboplastin Time 30 Seconds (21-31); Prothrombin Time 13.5 Seconds (9.0-12.0)
--- NOTE | 2023-08-08 18:53 | CT Scan Report ---
CT SCAN OF THE BRAIN WITHOUT IV CONTRAST CLINICAL HISTORY: Neurological deficit. Stroke like symptoms. COMPARISON STUDY: CT of the brain dated 07/26/2023. TECHNIQUE: Unenhanced axial CT scan of the brain is performed from the vertex to the skull base. A d ose lowering technique was utilized adhering to the principles of ALARA. FINDINGS: Brain parenchyma: There is minimal microangiopathic change. There is no hemorrhage, mass effect, or e vidence of acute territorial ischemia by CT criteria. Mclean-white matter differentiation is preserved. No extra-axial fluid collection is seen. Ventricles, sulci, cisterns: Normal in configuration. Intracranial vasculature: There is atherosclerotic calcification of the cavernous carotid and vertebr al arteries. Calvarium: Unremarkable. Sinuses and mastoids: There is near complete opacification of the right sphenoid sinus. Thickening an d sclerosis of the sinus wall suggests chronicity. The remaining visualized paranasal sinuses are moiz ar. The mastoid air cells are well pneumatized. Orbits: The bony orbits are grossly intact. IMPRESSION: There is no hemorrhage, mass effect, or evidence of acute territorial ischemia by CT naresh carroll. ACT 112: Negative or not required by law. Electronically signed by: Jerald Sanders M.D. 08/08/2023 6:51 PM
[2023-08-08] MEDS ORDERED: ASPIRIN 81 MG CHEW PO ONE (19:51)
[2023-08-08] MEDS ORDERED: PHARMACIST DISCHARGE MED REC CONSULT PRN ×2 (19:51)
--- NOTE | 2023-08-08 20:35 | History & Physical Report ---
Date of Service August 08, 2023 Assessment & Plan (1) Stroke-like symptoms: Plan: Again the patient had strokelike symptoms for approximately 10 to 15 minutes today -now she is completely asymptomatic from acute symptoms. Noncontrast CT of the brain was negative in the ER 324 of aspirin given x 1 now. Her naproxen allergy is secondary to her CKD -no benito allergy. She is tolerated aspirin in the past MRI of the brain tonight without contrast Bilateral carotid artery duplex [facility] Stroke protocol has been ordered (2) Elevated troponin: Plan: Patient's troponin tonight is approximately 66 -her recent baseline troponins have been 12-17 Her EKG is nonacute in the ER with a normal sinus rhythm rate in the 90s with no acute ST-T abnormalities. Patient denies any chest symptoms whatsoever and does not endorse any cardiac history 324 of aspirin x 1 now. If the troponins bumped significantly will entertain heparinizing the-we will need to do so cautiously given the chronic throm bocytopenia (3) CKD (chronic kidney disease): Plan: Stable CKD stage III no CTAs were ordered secondary to this (4) Diabetes: Plan: Stable. Will order Accu-Cheks will be called if less than 80 or greater than 180. Then we will entertain introduction of sliding scale if needed (5) Anemia: Plan: Anemia of chronic disease secondary to CKD. This is stable at 8.9 g/dL of hemoglobin (6) Thrombocytopenia: Plan: Stable at 97,000. Monitor carefully repeat labs in the a.m. (7) Intra-abdominal abscess: Plan: Patient was just admitted and discharged here for this. She has a history of a colorectal cancer with a rectal stump abscess. Currently following with colorectal surgery as an outpatient. She has a drain in place which is for from anterior approach She also has an ostomy in place which is chronic She is on Flagyl and a cephalosporin as an outpatient will continue these at this time. (8) Hypokalemia: Plan: Mild at 3.3. Will order normal saline with 20 of KCl at 80 cc an hour and recheck in the morning (9) Hypomagnesemia: Plan: 1.5. 1 g of mag sulfate was ordered in the ER. Will recheck in the morning. Plan As discussed above. Please refer to orders for further planning. In short admit to telemetry stroke protocol serial troponins echocardiogram 324 of aspirin x 1 now, given the NIH scale which is nonacute only positive for left lower extremity weakness which is chronic we will hold off on neurological consultation until we get imaging. If the patient's troponin should spike we would entertain a possible heparin drip. History of Present Illness Chief Complaint: Slurred speech, trouble finding words, mild confusion. Primary Care Provider: Ney Chisholm This is a pleasant 63-year-old black female who around 330 this afternoon had approximately 10-minute episode where she had some slurred speech some trouble finding words a "funny feeling in her head ". The patient denied any chest pain or shortness of breath whatsoever during her episode. She was asymptomatic by the time she arrived to the ER. Pertinent positive/negative laboratory studies and imaging studies in the ER included the following: Noncontrast CT of the brain was nonacute negative. Labs showed chronic anemia with a hemoglobin of 8.9 g/dL potassium mildly suppressed at 3.3 calcium chronically low at 8.1 corrected calcium I suspect is normal for her albumin alkaline phosphatase chronically elevated at 669 and AST at 58 with a total bilirubin of 3.0 this is all chronic for the patient she does have cancer she currently has a percutaneous rectal tube drainage due to rectal abscess secondary to GI malignancy. Currently on antibiotic therapy at home in the form of Flagyl and Cefdinir. Her baseline troponin appears to be around 12-17. This troponin was 66. Her EKG however was completely normal as normal sinus rhythm with no acute ST-T abnormalities with ventricular rate approximately 90 beats per Course in the emergency department the patient was ordered Plavix. However immediately upon swallowing her Plavix she regurgitated it into a bag. I spoke to the ER doctor Plavix was ordered due to her naproxen allergy. I personally spoke with the patient she has a naproxen "allergy" secondary to her chronic kidney disease. She has taken aspirin and tolerated it in the past. Therefore we will order 325 mg of aspirin x 1 now we have ordered the stroke protocol MRI of the brain and carotid ultrasounds. Will do serial troponins. Due to echocardiogram. The patient is completely asymptomatic at the time my exam as documented below Allergies Allergy/AdvReac Type Severity Reaction Status Date / Time pineapple Allergy Severe anaphylaxis Verified 08/08/23 19:59 tomato Allergy Severe hives, Verified 08/08/23 19:59 throat tightness cantaloupe Allergy Intermediate Hives Verified 08/08/23 19:59 [place] And Derivatives Allergy Intermediate hives Verified 08/08/23 19:59 clarithromycin Allergy Intermediate hives Verified 08/08/23 19:59 lemon Allergy Intermediate Hives Verified 08/08/23 19:59 lemon oil Allergy Intermediate Hives Verified 08/08/23 19:59 [place] Allergy Intermediate Hives Verified 08/08/23 19:59 naproxen Allergy Intermediate hives Verified 08/08/23 19:59 orange Allergy Intermediate Hives Verified 08/08/23 19:59 orange (food color) Allergy Intermediate Hives Verified 08/08/23 19:59 orange flavor Allergy Intermediate Hives Verified 08/08/23 19:59 orange juice Allergy Intermediate Hives Verified 08/08/23 19:59 Penicillins Allergy Intermediate hives Verified 08/08/23 19:59 latex Allergy Mild rash Verified 08/08/23 19:59 Home Medications Medication Instructions Recorded Confirmed Type brimonidine 0.1 % eye drops 1 drp OPB TID 05/12/19 08/08/23 History (Alphagan P) cholecalciferol (vitamin D3) 50 2,000 unit PO QAM 05/12/19 08/08/23 History mcg (2,000 unit) capsule (Vitamin D3) latanoprost 0.005 % eye drops 1 drp OPB HS 05/12/19 08/08/23 History (Xalatan) multivitamin 1 tab PO QAM 05/12/19 08/08/23 History ondansetron HCl 8 mg tablet 8 mg PO Q8H PRN Nausea 12/18/20 08/08/23 History prochlorperazine maleate 10 mg 10 mg PO Q6 PRN Nausea 12/18/20 08/08/23 History tablet allopurinol 100 mg tablet 200 mg PO DAILY 02/17/23 08/08/23 History potassium chloride 10 mEq 10 meq PO DAILY 02/17/23 08/08/23 History capsule,extended release cefdinir 300 mg capsule 300 mg PO HS 3 weeks #21 caps 07/29/23 08/08/23 Rx metronidazole 500 mg tablet 500 mg PO Q8 3 weeks #63 tabs 07/29/23 08/08/23 Rx Past Med/Surg History Medical History (Updated 08/08/23 @ 20:34 by Haroon Martin, PhD, DO) Hypomagnesemia Hypokalemia Hyperkalemia 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, unproven Near syncope Acute hypokalemia ABILIO (acute kidney injury) UTI (urinary tract infection) Acute kidney injury superimposed on CKD Acute hypokalemia Borderline diabetes diet controlled Chronic ITP (idiopathic thrombocytopenia) platelet WNL on 06/01/20 labs Anemia chronic, baseline hgb 9-11 range per chart review 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, chemo currently Pancreatitis post-op (2014) Mucinous adenocarcinoma of appendix (~03/2013) 2012 Hyponatremia High cholesterol Surgical History (Updated 07/31/23 @ 00:09 by Ozzie Rodriguez) Encounter for insertion of venous access port 2012 (subsequent removal) History of laparotomy USO + salipngectomy Hx laparoscopic cholecystectomy 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 Family History Other Diabetes Heart disease Hypertension Stroke Social History Smoking Status: Never smoker Second Hand Exposure: No; Do You Dip or Chew Tobacco: No; Hx Alcohol Use: Yes Alcohol type: other Hx Substance Use: No Preferred Language: Bahraini Communication Ability: Effective Visual Impairment: No Limitations Project Executive Required: No Beliefs That Will Affect Care: None marital status: Current Living Situation: Family Current Living Situation Comment: lives with son Kwadwo Feels Safe at Home: Yes Assistive Devices: None Review of Systems Review of Systems: A 10 point review system was obtained and was otherwise stated here or in history of present illness are negative and noncontributory to chief complaint. It should be noted the patient has some left lower extremity weakness since her last hospitalization with some mild swelling. It is noted that her venous duplex was obtained of the left lower extremity on August 08, 2023 which was negative for DVT. She has had no clinical changes in her symptomatology or legs since then Physical Exam Physical Exam: In general: This is a pleasant 63-year-old black female who is alert and oriented x 3, exam she interacts appropriately presently she has no complaints she feels that she is at her baseline health status and functional status currently. HEENT: Normocephalic atraumatic pupils are equal round and reactive to light bilaterally. No scleral icterus no conjunctival injection external auditory canals are patent septum is in the midline nose is without discharge oral mucosa is pink and moist without lesion. NECK: Supple no rigidity no lymphadenopathy no thyromegaly no carotid bruits no JVD no masses. HEART: Regular rate and rhythm I do not appreciate any ectopy or rub. No murmur. LUNGS: Clear to auscultation bilaterally and anteriorly with no evidence of adventitious sounds/wheezes rales or rhonchi. ABDOMEN: Soft nontender, no rebound, no peritoneal signs, positive bowel sounds, no appreciable organomegaly. Colostomy noted. Draining stool. In addition the pelvic drain in place secondary to rectal abscess. EXTREMITIES: Intact, no peripheral cyanosis, clubbing or edema. Strength is 5 out of 5 in extremities x3, she does have decree strength in her left lower extremity again this is subacute to chronic for her she has 4 out of 5 strength of the left leg, no pathological reflexes. NEUROLOGICAL: Cranial nerves II through XII are grossly intact with no focal deficit elicited upon examination. No tremor. No loss in sensation to fine pinprick in her extremities x 4. Results & Data Results & Data Vital Signs (Past 12 Hours) Vital Signs Pulse Resp BP Pulse Ox O2 Del Method 08/08/23 18:50 92 H 23 99 Room Air 08/08/23 18:30 112 H 14 99 Room Air 08/08/23 18:20 86 19 08/08/23 18:10 88 23 08/08/23 18:08 99 H 08/08/23 18:02 97 H 20 130/69 100 Room Air 08/08/23 18:00 93 H 19 08/08/23 17:53 99 H 28 H 130/69 100 Room Air 08/08/23 17:31 100 Room Air Code Status & VTE Plan Code Status Full code. I personally discussed with the patient. VTE Prophylaxis Plan VTE Prophylaxis will be ordered: Yes PG Care Time/CCT Total # of Minutes Spent Total Time Spent with Patient: Total time spent is greater than 50% in coordination of care (as documented) at patient's floor/unit and/or counseling patient: Coding Level of Care Code 92514 INT INP/OBS CARE 3/75MIN Diagnoses Stroke-like symptoms R29.90 Elevated troponin R79.89 Stage 3b chronic kidney disease N18.32 Chronic kidney disease stage: stage 3 (moderate) Chronic kidney disease stage 3 subtype: stage 3b (GFR 30-44) Diabetes E11.9 Anemia D64.9 Thrombocytopenia D69.6 Intra-abdominal abscess K65.1 Hypokalemia E87.6 Hypomagnesemia E83.42 (3) CKD (chronic kidney disease) Chronic kidney disease stage: stage 3 (moderate) Chronic kidney disease stage 3 subtype: stage 3b (GFR 30-44) Qualified Code(s): N18.32 - Chronic kidney disease, stage 3b
--- NOTE | 2023-08-08 22:25 | Ultrasound Report ---
ULTRASOUND OF THE CAROTID ARTERIES CLINICAL HISTORY: Transient ischemic attack. COMPARISON STUDY: No priors. TECHNIQUE: Real-time, grayscale, and color Doppler sonography of the carotid arteries is performed. I mages are reviewed in the transverse and longitudinal planes. FINDINGS: The carotid arteries are patent bilaterally and demonstrate antegrade flow. There is mild atheroscler otic plaque seen in the carotid bulbs. Normal doppler arterial waveforms are seen throughout. Velocit y measurements are listed below. Common carotid peak systolic velocity (cm/sec): RIGHT: 79 LEFT: 102 ICA proximal peak systolic velocity (cm/sec): RIGHT: 67 LEFT: 55 ICA mid peak systolic velocity (cm/sec): RIGHT: 50 LEFT: 78 ICA distal peak systolic velocity (cm/sec): RIGHT: 79 LEFT: 112 ICA/CC peak systolic ratio: RIGHT: 1.0 LEFT: 1.1 Antegrade flow was shown in the vertebral arteries. The external carotid arteries are patent. IMPRESSION: 1. There is no sonographic evidence of hemodynamically significant stenosis in the right or left chavez tid arterial system. 2. Antegrade flow is shown in the vertebral arteries. ACT 112: Negative or not required by law. Electronically signed by: Jerald Sanders M.D. 08/08/2023 10:24 PM
--- NOTE | 2023-08-08 22:29 | Magnetic Resonance Report ---
MRI OF THE BRAIN WITHOUT IV CONTRAST CLINICAL HISTORY: Transient ischemic attack. COMPARISON STUDY: CT of the brain dated 08/08/2023 TECHNIQUE: MRI of the brain was performed utilizing various T1 and T2-weighted sequences in the axial , sagittal, and coronal planes. IV contrast was not administered for this examination. FINDINGS: Brain parenchyma: The brain parenchyma is normal in appearance. There is no hemorrhage or mass effect . There is no restricted diffusion to suggest acute ischemia. Mclean-white matter differentiation is pr eserved. Mineralization is noted in the basal ganglia. No extra-axial fluid collection is seen. The c erebellar tonsils are normal in configuration. Ventricles, sulci, and cisterns: Normal in configuration. Pituitary and sella: Unremarkable. Intracranial vasculature: Normal flow voids are maintained at the skull base. Orbits: The bony orbits are grossly intact. Orbital contents are normal in appearance. Sinuses and mastoids: There is near-complete opacification of the right sphenoid sinus. The remaining paranasal sinuses and mastoid air cells are clear. Calvarium: Unremarkable. Cervical cord: Partially visualized cervical spinal cord is normal in morphology and signal intensity . IMPRESSION: No acute intracranial abnormality. ACT 112: Negative or not required by law. Electronically signed by: Jerald Sanders M.D. 08/08/2023 10:27 PM
[2023-08-08] MEDS ORDERED: GLUCOSE 40% GEL 15 GM TUBE PO PRN (23:19)
[2023-08-08] MEDS ORDERED: DEXTROSE 50% 50 ML SYRINGE IV PRN (23:19)
[2023-08-08] MEDS ORDERED: GLUCOSE 10 TAB/TUBE PO PRN (23:19)
[2023-08-08] MEDS ORDERED: CARBOHYDRATES FOR HYPOGLYCEMIA PO PRN (23:19)
[2023-08-08] MEDS ORDERED: GLUCAGON FOR INJ 1 MG VIAL SQ PRN (23:19)
[2023-08-08] MEDS ORDERED: CEFDINIR 300 MG CAP PO SCH (23:19)
[2023-08-09] MEDS: NSS + 20MEQ KCL 20 MEQ/1,000 ML BAG IV SCH ×2 (00:07→12:36)
[2023-08-09] MEDS: LATANOPROST 0.005% OP SOLN 2.5 ML BTL OPB SCH ×2 (00:07→21:12)
[2023-08-09] MEDS: metroNIDAZOLE 500 MG TAB PO SCH ×3 (00:07→15:01)
[2023-08-09] MEDS ORDERED: ONDANSETRON INJ 2 MG/ML 2 ML VIAL IV PRN ×2 (00:54→08:44)
[2023-08-09] MEDS: ALPHAGAN~ORDER AWAITING ACTION SCH ×3 (04:47→15:14)
[2023-08-09 05:22] LABS: Basophils # (auto) 0.03 K/uL (0.00-0.20); Basophils % (auto) 0.7 %; Eosinophils # (auto) 0.07 K/uL (0.00-0.50); Eosinophils % (auto) 1.6 %; Hematocrit (blood only) 27.7 % (37.0-47.0); Hemoglobin 8.9 g/dl (12.0-16.0); Immature Granulocytes # (auto) 0.02 K/uL (0.01-0.20); Immature Granulocytes % (auto) 0.5 %; Lymphocytes # (auto) 1.02 K/uL (1.20-3.40); Lymphocytes % (auto) 23.8 %; Mean Corpuscular Hemoglobin 30.2 pg (25.0-34.0); Mean Corpuscular Hgb Conc 32.1 g/dL (32.0-36.0); Mean Corpuscular Volume 93.9 fL (80.0-100.0); Mean Platelet Volume 11.4 fL (9.4-12.4); Monocytes # (auto) 0.35 K/uL (0.11-0.59); Monocytes % (auto) 8.2 %; Neutrophils % (auto) 65.2 %; Platelet Count 99 K/uL (130-400); RDW Coefficient of Variation 17.4 % (11.5-14.5); RDW Standard Deviation 59.9 fL (36.4-46.3); Red Blood Count 2.95 M/uL (4.20-5.40); White Blood Count 4.29 K/ul (4.8-10.8)
[2023-08-09 05:35] LABS: Albumin Globulin Ratio 0.7 (0.9-2); Albumin Level 2.6 gm/dl (3.4-5.0); BUN Creatinine Ratio 11.3 (10-20); Bilirubin,Total 2.7 mg/dl (0.2-1.0); Chol HDL Ratio 2.3 (0-5); Est GFR (African American) 39.9 ml/min; Est GFR (Non-African American) 34.4 ml/min; Globulin 3.5 gm/dl (2.5-4.0); Magnesium 1.8 mg/dl (1.7-2.4); Potassium 3.7 mmol/L (3.5-5.1); Total Protein 6.1 gm/dl (6.0-8.3)
[2023-08-09 05:44] LABS: Troponin I High Sensitivity 664.3 pg/ml (0-14)
[2023-08-09] MEDS ORDERED: Heparin IV Adult Wt-Based Standard w/ INITIAL Bolus Protocol IV STA (05:59)
[2023-08-09] MEDS ORDERED: HEPARIN SODIUM/DEXTROSE 25,000 UNITS/500 ML BAG IV SCH (06:15)
--- NOTE | 2023-08-09 06:17 | Communication Note ---
Date of Service: August 09, 2023 Upon review of the patient's chart this morning, last evening we did write a communication order please contact us with MRI and ultrasound results, we were not contacted. We checked with the resident on-call who did not receive any update either, Dr. Lai. Upon review of the chart the MRI of the brain is negative for acute findings and the carotid ultrasounds are negative for significant carotid artery stenosis. However, on chart review this morning the patient's troponin has gone from 66- >600 -the patient had serial troponins overnight and has been confirmed with the resident that he nor I have been contacted on these critical troponin results. We went to reassess the patient immediately upon discovering abnormal lab test in the ICU immediately.. I discussed with the patient's registered nurse at the bedside. No subjective further events reported by the nurse from the patient over night. We have ordered aspirin daily we did give aspirin last night 324 due to the elevated troponins we have ordered a heparin drip. And stat EKG. We have also ordered statin therapy. Will consult cardiology echocardiograms already been ordered. Will hold off on beta-danie at this time due to relative hypotension with systolic 100 mmHg.. If patient's blood pressure improves throughout the stay beta-danie could be introduced The patient confirms that she has had no further episodes overnight she denies chest pain presyncope or syncope. I did do a brief exam on the patient this morning it is unchanged from my admission exam please refer to my H&P. Assessment: 1. Elevated troponin. Possible acute non-ST elevation myocardial infarction. However given the patient's symptomatology on presentation PE would also be a possibility causing troponin leak. Either way we will heparinize the patient at this time. Consult cardiology echocardiogram. The patient does have some chronic renal insufficiency limiting our ability to use IV contrast dye. Will do bilateral lower extremity ultrasounds to rule out DVT. And a few VQ scan should be obtained when able to. Will await the echocardiogram results to see if there is any evidence of a right-sided heart strain which could be indicative of pulmonary embolism. 2. Possible non-ST elevation myocardial infarction as discussed above. Plan consult cardiology heparin drip 3. Rule out pulmonary embolism. VQ scan has been ordered as well as lower extremity ultrasounds.
[2023-08-09] MEDS ORDERED: HEPARIN 25000 UNIT/500 ML D5W IV ONE (06:21)
[2023-08-09] MEDS ORDERED: HEPARIN SOD (PORCINE) 1000 UNIT/ML IV ONE (06:45)
[2023-08-09] MEDS ORDERED: ACETAMINOPHEN 1,000 MG/100 ML VIAL IV STA (06:49)
[2023-08-09 07:37] LABS: Estimated Average Glucose 114 mg/dl; Hemoglobin A1C 5.6 % (4.5-5.6)
--- NOTE | 2023-08-09 08:24 | Ultrasound Report ---
ULTRASOUND BILATERAL LOWER EXTREMITY VENOUS CLINICAL HISTORY: Lower extremity edema. COMPARISON STUDY: Bilateral lower extremity venous ultrasound dated 07/29/2023 TECHNIQUE: Real-time, grayscale, and color Doppler sonography of the deep veins of the right and left lower extremity was performed from the inguinal crease to the calf. Compression and augmentation wer e utilized. FINDINGS: There is no sonographic evidence of deep venous thrombosis identified in the right or left lower extremity. The common femoral, superficial femoral, and popliteal veins are patent and normally compressible bilaterally. The greater saphenous vein and the profunda femoris vein at the junction w ith the common femoral vein are clear in both legs. The visualized calf veins are patent bilaterally. IMPRESSION: There is no sonographic evidence of deep venous thrombosis identified in the right or lef t lower extremity. ACT 112: Negative or not required by law. Electronically signed by: Jerald Sanders M.D. 08/09/2023 8:23 AM
[2023-08-09] MEDS: ATORVASTATIN 40 MG TAB PO SCH ×2 (08:27→09:53)
[2023-08-09] MEDS: CHOLECALCIFEROL 1,000 UNITS 25 MCG TAB PO SCH (08:27)
[2023-08-09] MEDS: allopurinoL 100 MG TAB PO SCH (08:28)
[2023-08-09] MEDS ORDERED: ondansetron HCL 8 MG in DEXTROSE 5% 50 ML IV PRN (08:50)
[2023-08-09] MEDS ORDERED: ASPIRIN 81 MG ECTAB PO SCH (09:00)
--- NOTE | 2023-08-09 10:23 | Hospitalist Progress Note ---
Date of Service August 09, 2023 Assessment & Plan (1) Stroke-like symptoms: Plan: - Patient with strokelike symptoms for approximately 10 to 15 minutes (i.e. slurring of speech and word finding difficulty) Symptoms not present in today's evaluation - Noncontrast CT of the brain was negative in the ER - MRI wo contrast negative for acute changes - Bilateral carotid artery duplex without significant stenosis to obstruct flow - Pending TTE - ASA given in ED (2) Elevated troponin: Plan: - Troponins in ED elevated at 66 and following increasing trend (last value 664) EKG without ST segment or T wave abnormalities, NSR in the 90s Patient wo symptoms of chest pain or left arm/jaw pain or numbness Gave ASA, Atorvastatin 40mg, and Heparin drip Hold on beta blockers due to low BP - Will order V/Q scan to r/o PE as a cause CTA not done due to hx of CKD - Cardiology consult placed. Will appreciate recommendations. (3) Coffee ground emesis: Plan: - Patient with new dark colored (coffee colored) emesis No associated abdominal pain Only reports having some nausea Similar episode last night, but not before - Will consult gastroenterology. Will appreciate recommendations. (4) CKD (chronic kidney disease): Plan: - Stable CKD stage III - No CTAs were ordered secondary to this (5) Diabetes: Plan: - Stable. - Will order Accu-Cheks will be called if less than 80 or greater than 180. 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 Drain in place in LLQ (present since 06/11/23); ostomy also in place Was following with a colorectal surgeon as outpatient, but they recently retired and is going to connect with another surgeon recommended to her. She is on Flagyl and a cephalosporin as an outpatient. Will continue these at this time. (7) Anemia: Plan: Anemia of chronic disease secondary to CKD. This is stable at 8.9 g/dL of hemoglobin (8) Thrombocytopenia: Plan: - Stable at 97,000 on admission. 99,000 today - Monitor CBC (9) Hypokalemia: Plan: Mild at 3.3 on admission. Replaced 3.7 this morning (10) Hypomagnesemia: Plan: - 1.5 on admission. Replaced. 1.8 this morning Plan Admit to PCU/Telemetry Diet: NPO Lines: rectal drain, colostomy, medport (right upper chest) DVT ppx: Heparin drip Code: Full Admission and Anticipated Discharge Date Admission Date: August 08, 2023 Supervising Physician Co-Signing Physician Notes Attending Physician Supervision Note: I independently interviewed and examined the patient and verified the amin history and physical, reviewed labs and image studies and agree with findings and care plan noted above. Seen in the afternoon. had coffee ground emesis. no chest pain, shortness of breath. comfortable in bed. ostomy reported to have blood stain. vitals noted, comfortable in bed. RRR, CTA, abdomen - soft, NT/ND, drain present, ostomy functioning. Elevated troponin in setting of new onset CMP - Did not present with ACS symptoms. large area of apical akinesis. not able to cath due to new TIA and GI bleed. on atorvastatin 40mgs, plavix. b danie added. Cardiomyopathy - new onset. b danie. add further meds as tolerated. per cardio - heparin drip not required for current cardiac status. TIA - Presented to ED with TIA symptoms. Negative MRI for acute changes. on statin and antiplatelet. consider formal neuro consult. TTE reviewed. Coffee ground emesis and blood stain in ostomy - Was on heparin drip - d/vadim since then. started PPI drip. NPO, IVF, follow h/h. GI consult placed. discussed with GI - continue current management. Appendicial ca with stump abscess - has been on chemo. Drain placed May 2023. follows with general surgery. on cefdinir and flagyl. transition to IV while NPO SCD 45 min of critical care time spent by me in management. Subjective Patient is a 63 y/o female with PMHx of Appendiceal adenocarcinoma with rectal abscess and rectal tube drainage who arrived to the ED due to new onset slurring of speech and word finding difficulty plus what she described as a "funny feeling in her head". She also refers she has some left leg weakness that began around 07/28/23 or 07/29/23. She refers feeling well. She has not eaten anything since yesterday, where she had some small snacks such as cheese-it snaps in order to take her medications since she states she cannot take them without eating anything. Today she endorses mild nausea. Nursing indicates patient vomited what "looked like stool". On evaluation, emesis bag on the bedside contained what appeared to be coffee colored emesis. Patient states she had an episode of similar vomiting last night. Denies epigastric or abdominal pain, chest pain, SOB, or any other symptom. Review of Systems Review of Systems: As per HPI. Physical Exam Physical Exam: General: AAOx3, afebrile, NAD HEENT: Normocephalic, PERRLA, EOM intact HEART: RRR, no r/m/g LUNGS: CTA, normal respiratory effort, no respiratory distress CHEST: medport noted in right upper chest ABDOMEN: Soft, nontender, nondistended, colostomy in place and draining stool without blood, drain noted in LLQ for rectal abscess. EXTREMITIES: no swelling or calf tenderness in bilateral LE, normal strength in right LE but left LE with some weakness. NEUROLOGICAL: symmetric smile and eye brow raise, no tongue deviation on protrusion, bilateral hand disability representative adequate and no difference in strength noted on exam, left LE with slight weakness on elevation off the bed that is not seen on the right LE. Results & Data Results & Data Vital Signs (Past 12 Hours) Vital Signs Temp Pulse Pulse Resp BP Pulse Ox Pulse Ox 08/09/23 04:39 36.6 C 74 20 100/59 L 100 08/09/23 00:00 78 08/08/23 23:50 90 25 H 100 08/08/23 23:45 100 08/08/23 23:30 84 16 100 08/08/23 23:20 82 16 100 08/08/23 23:19 36.7 C 108 H 20 111/65 100 08/08/23 23:19 08/08/23 23:11 100 08/08/23 23:10 82 18 100 08/08/23 23:00 82 19 100 08/08/23 22:50 84 17 100 08/08/23 22:40 82 24 100 08/08/23 22:30 81 16 100 08/08/23 22:20 79 38 H 100 08/08/23 22:20 08/08/23 22:20 36.7 C 82 20 108/64 100 08/08/23 22:10 80 22 100 08/08/23 22:00 83 17 100 O2 Del Method O2 Del Method 08/09/23 04:39 Room Air 08/09/23 00:00 08/08/23 23:50 08/08/23 23:45 08/08/23 23:30 08/08/23 23:20 08/08/23 23:19 Room Air 08/08/23 23:19 Room Air 08/08/23 23:11 Room Air 08/08/23 23:10 08/08/23 23:00 08/08/23 22:50 08/08/23 22:40 08/08/23 22:30 08/08/23 22:20 08/08/23 22:20 Room Air 08/08/23 22:20 Room Air 08/08/23 22:10 08/08/23 22:00 Resident Activity Tracking Resident Involvement: Resident Care Provided Care Provided: Adult Hospital Medicine (4) CKD (chronic kidney disease) Chronic kidney disease stage: stage 3 (moderate) Chronic kidney disease stage 3 subtype: stage 3b (GFR 30-44) Qualified Code(s): N18.32 - Chronic kidney disease, stage 3b
--- NOTE | 2023-08-09 11:33 | Pharmacy Report ---
- Date of Service August 09, 2023 - Pharmacy CVA/TIA Medication Review Medications to Prevent Stroke handout has been added to the patients discharge packet. Antiplatelet(s) * Aspirin 81 mg PO daily Cholesterol * High intensity statin: atorvastatin 40 mg daily DVT Prophylaxis * SCD knee Therapeutic Anticoagulation * No history of Afib/Aflutter noted but patient is ordered a heparin drip for NSTEMI Type 2 Diabetes * Patient does not have T2DM
[2023-08-09] MEDS ORDERED: PANTOPRAZOLE BOLUS/DRIP IV STA (12:49)
--- NOTE | 2023-08-09 13:07 | Cardiology Consultation ---
Date of Consultation August 09, 2023 Assessment & Plan (1) Cardiomyopathy: (2) Elevated troponin: (3) TIA (transient ischemic attack): (4) CKD (chronic kidney disease): (5) Coffee ground emesis: (6) GIB (gastrointestinal bleeding): Plan ASSESSMENT/PLAN: 1. NSTEMI/elevated troponin: She did not present with acute coronary syndrome and has no symptoms concerning for angina. Elevated troponin could be due to transient LV systolic dysfunction, TIA, or other possibility. There is no urgent indication for cardiac catheterization and given active GI bleed and presentation of TIA, would not pursue cardiac catheterization at this time until other issues are improved/settled, unless emergently needed. Start beta- danie. Anticoagulation therapy is not necessary for her elevated troponins. 2. Cardiomyopathy: LV systolic function is mildly reduced but apical territory akinesis. Etiology uncertain. Cannot exclude underlying ischemic heart disease however she had no symptoms to suggest active ischemia. Cannot exclude chemotherapy is playing a role or stress-induced cardiomyopathy given involved territory. Given that she presented with TIA symptoms, could consider anticoagulation therapy for concern of thrombus, although overall LV systolic function is not severely reduced. Either way, with active GI bleeding, would not recommend further anticoagulation. This was discussed with Dr. Gaming of the primary hospitalist service and nursing staff. Start metoprolol succinate 25 mg daily. Can introduce other medical therapy as hospitalization progresses and will follow with repeat echo in the near future. 3. TIA: Her presenting symptom to the hospital seems consistent with TIA. Consider neurology evaluation. 4. CKD: As per primary hospitalist. 5. Coffee-ground emesis/GI bleed: Blood noted in her ostomy and coffee-ground emesis per nursing staff. GI consultation is pending. 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 7. Pancytopenia: Follows with hematology/oncology. Hemoglobin is low but seems stable from recent values. 8. Disposition: Cardiology will continue to follow. Patient care discussed with Dr. Gaming and nursing staff. Offered to discuss with patient's son however she did not have his new phone number. Highly complex medical issues. Thank you for allowing me to participate in the care of your patient. Please call for any other questions or concerns. Sincerely, Cleveland Flores M.D. History of Present Illness Reason for Consultation: NSTEMI Requesting Physician: Haroon Martin Attending Physician: Kat Gaming MD History of Present Illness Ms. 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 She was hospitalized on 08/08/2023 with strokelike symptoms. While on a phone with a friend, she noted that she developed right sided (convulsions) described as a shaking with mild weakness. She also had slurred speech. Symptoms lasted for approximately 10 minutes and had resolved by the time EMS arrived. Once here, she had 2 episodes of vomiting, after taking medications. Her initial high-sensitivity troponin was 66 but then continued to increase to 664 earlier this morning. She denied any chest pain, shortness of breath, syncope, near syncope, palpitations, edema. She has not had any anginal symptoms with activity. She denies abdominal pain. She has noted left leg swelling since June 29, 2023. She described as a lu re swelling which has since significantly improved. She states that her chemotherapy has been on hold more recently due to renal issues and abscess. She denies hematochezia, melena, or hematuria. Given elevated troponins, primary hospitalist service initiated heparin drip. MRI of the brain reported no obvious stroke. Just before she was evaluated by me today, shortly after noon, she had coffee-ground emesis. She denies orthopnea and was laying completely flat. She denies any recent fevers or chills. She denies leg pain. She has not had any recurrent neurologic symptoms. She has been on antibiotic therapy for the last 6 to 7 days. Review of systems: As above. Review of systems otherwise negative/unremarkable. Family history: Mother at 88 but had strokes and a pacemaker. Social history: She denies smoking, alcohol, or drug abuse. She lives with her son. She has a 7-year-old grandson. Originally from [place] and moved to the [facility] in the . 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 She was unaccompanied. Allergies Allergy/AdvReac Type Severity Reaction Status Date / Time pineapple Allergy Severe anaphylaxis Verified 08/08/23 19:59 tomato Allergy Severe hives, Verified 08/08/23 19:59 throat tightness cantaloupe Allergy Intermediate Hives Verified 12/16/23 19:59 [place] And Derivatives Allergy Intermediate hives Verified 08/08/23 19:59 clarithromycin Allergy Intermediate hives Verified 08/08/23 19:59 lemon Allergy Intermediate Hives Verified 08/08/23 19:59 lemon oil Allergy Intermediate Hives Verified 08/08/23 19:59 [place] Allergy Intermediate Hives Verified 08/08/23 19:59 naproxen Allergy Intermediate hives Verified 08/08/23 19:59 orange Allergy Intermediate Hives Verified 08/08/23 19:59 orange (food color) Allergy Intermediate Hives Verified 08/08/23 19:59 orange flavor Allergy Intermediate Hives Verified 08/08/23 19:59 orange juice Allergy Intermediate Hives Verified 08/08/23 19:59 Penicillins Allergy Intermediate hives Verified 08/08/23 19:59 latex Allergy Mild rash Verified 08/08/23 19:59 Home Medications Medication Instructions Recorded Confirmed Type brimonidine 0.1 % eye drops 1 drp OPB TID 05/12/19 08/08/23 History (Alphagan P) cholecalciferol (vitamin D3) 50 2,000 unit PO QAM 05/12/19 08/08/23 History mcg (2,000 unit) capsule (Vitamin D3) latanoprost 0.005 % eye drops 1 drp OPB HS 05/12/19 08/08/23 History (Xalatan) multivitamin 1 tab PO QAM 05/12/19 08/08/23 History ondansetron HCl 8 mg tablet 8 mg PO Q8H PRN Nausea 12/18/20 08/08/23 History prochlorperazine maleate 10 mg 10 mg PO Q6 PRN Nausea 12/18/20 08/08/23 History tablet allopurinol 100 mg tablet 200 mg PO DAILY 02/17/23 08/08/23 History potassium chloride 10 mEq 10 meq PO DAILY 02/17/23 08/08/23 History capsule,extended release cefdinir 300 mg capsule 300 mg PO HS 3 weeks #21 caps 07/29/23 08/08/23 Rx metronidazole 500 mg tablet 500 mg PO Q8 3 weeks #63 tabs 07/29/23 08/08/23 Rx Patient History Medical History Hypomagnesemia Hypokalemia Hyperkalemia 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, unproven Near syncope Acute hypokalemia ABILIO (acute kidney injury) UTI (urinary tract infection) Acute kidney injury superimposed on CKD Acute hypokalemia Borderline diabetes diet controlled Chronic ITP (idiopathic thrombocytopenia) platelet WNL on 06/01/20 labs Anemia chronic, baseline hgb 9-11 range per chart review 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, chemo currently Pancreatitis post-op (2014) Mucinous adenocarcinoma of appendix (~03/2013) 2013 Hyponatremia High cholesterol Surgical History (Updated 07/31/23 @ 00:09 by Ozzie Rodriguez) Encounter for insertion of venous access port 2012 (subsequent removal) History of laparotomy USO + salipngectomy Hx laparoscopic cholecystectomy 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 Family History Other Diabetes Heart disease Hypertension Stroke Social History Smoking Status: Never smoker Second Hand Exposure: No; Do You Dip or Chew Tobacco: No; Hx Alcohol Use: No Hx Substance Use: No Preferred Language: Armenian Communication Ability: Effective Visual Impairment: No Limitations Insulation Technician Required: No Beliefs That Will Affect Care: None marital status: Current Living Situation: Family Current Living Situation Comment: lives with son Feels Safe at Home: Yes Assistive Devices: None Physical Exam Physical Exam: Gen.: No acute distress. Alert and oriented. HEENT: Anicteric sclera. Neck: No JVD. No bruits. Normal carotid upstrokes bilaterally. Cardiac: No ventricular heave. Regular . Normal S1-S2. 2/6 systolic murmur. No rubs or gallops. Pulmonary: Clear to auscultation bilaterally without wheezes, rales, or rhonchi. Abdomen: Soft, nontender, nondistended, with normoactive bowel sounds. No bruits noted. Ostomy bag with blood. Extremities: 2+ radial pulses bilaterally. 2+ posterior tibialis pulses bilaterally. Trace bilateral lower extremity edema. Left > right. No cyanosis. Psychiatric: Affect appears appropriate. Results & Data Vital Signs (Past 12 Hours) Vital Signs Temp Pulse Pulse Resp BP Pulse Ox O2 Del Method 08/09/23 12:54 36.7 C 83 16 117/71 99 Room Air 08/09/23 08:00 36.6 C 79 15 96/56 L 98 Room Air 08/09/23 08:00 81 08/09/23 04:39 36.6 C 74 20 100/59 L 100 Room Air Laboratory Results Laboratory Results - last 24 hr 08/08/23 08/08/23 08/08/23 17:52 18:10 20:05 WBC 4.39 L RBC 2.95 L Hgb 8.9 L Hct 27.4 L MCV 92.9 MCH 30.2 MCHC 32.5 RDW Std Deviation 59.8 H RDW Coeff of Veda 17.6 H Plt Count 97 L MPV 11.9 Immature Gran % (Auto) 0.5 Neut % (Auto) 80.3 Lymph % (Auto) 10.0 [place] % (Auto) 8.2 Eos % (Auto) 0.5 Baso % (Auto) 0.5 Neut # (Auto) 3.53 Lymph # (Auto) 0.44 L [place] # (Auto) 0.36 Eos # (Auto) 0.02 Baso # (Auto) 0.02 Immature Gran # (Auto) 0.02 PT 13.5 H INR 1.2 H APTT 30 PTT Ratio 1.1 Heparin Anti-Xa, Unfract Sodium 136 Potassium 3.3 L Chloride 111 H Carbon Dioxide 18 L Anion Gap 7 BUN 20 Creatinine 1.76 H Est Cr Clr Drug Dosing 23.5 Est GFR ( Amer) 35.3 Est GFR (Non-Af Amer) 30.5 BUN/Creatinine Ratio 11.4 Glucose 212 H POC Glucose 208 H Estimat Average Glucose Hemoglobin A1c Calcium 8.1 L Magnesium 1.5 L Total Bilirubin 3.0 H AST 58 H ALT 19 Alkaline Phosphatase 669 H Troponin I High Sens 66.5 H* 193.4 H* D Total Protein 6.7 Albumin 2.9 L Globulin 3.8 Albumin/Globulin Ratio 0.8 L Triglycerides Cholesterol LDL Cholesterol, Calc VLDL Cholesterol, Calc HDL Cholesterol Cholesterol/HDL Ratio 08/08/23 08/09/23 08/09/23 22:21 00:38 04:36 WBC RBC Hgb Hct MCV MCH MCHC RDW Std Deviation RDW Coeff of Veda Plt Count MPV Immature Gran % (Auto) Neut % (Auto) Lymph % (Auto) [place] % (Auto) Eos % (Auto) Baso % (Auto) Neut # (Auto) Lymph # (Auto) [place] # (Auto) Eos # (Auto) Baso # (Auto) Immature Gran # (Auto) PT INR APTT PTT Ratio Heparin Anti-Xa, Unfract Sodium Potassium Chloride Carbon Dioxide Anion Gap BUN Creatinine Est Cr Clr Drug Dosing Est GFR ( Amer) Est GFR (Non-Af Amer) BUN/Creatinine Ratio Glucose POC Glucose 141 H 105 H Estimat Average Glucose Hemoglobin A1c Calcium Magnesium Total Bilirubin AST ALT Alkaline Phosphatase Troponin I High Sens 347.3 H* D Total Protein Albumin Globulin Albumin/Globulin Ratio Triglycerides Cholesterol LDL Cholesterol, Calc VLDL Cholesterol, Calc HDL Cholesterol Cholesterol/HDL Ratio 08/09/23 08/09/23 08/09/23 05:01 12:43 13:02 WBC 4.29 L RBC 2.95 L Hgb 8.9 L 8.8 L Hct 27.7 L MCV 93.9 MCH 30.2 MCHC 32.1 RDW Std Deviation 59.9 H RDW Coeff of Veda 17.4 H Plt Count 99 L MPV 11.4 Immature Gran % (Auto) 0.5 Neut % (Auto) 65.2 Lymph % (Auto) 23.8 [place] % (Auto) 8.2 Eos % (Auto) 1.6 Baso % (Auto) 0.7 Neut # (Auto) 2.80 Lymph # (Auto) 1.02 L [place] # (Auto) 0.35 Eos # (Auto) 0.07 Baso # (Auto) 0.03 Immature Gran # (Auto) 0.02 PT INR APTT PTT Ratio Heparin Anti-Xa, Unfract Sodium 139 Potassium 3.7 Chloride 115 H Carbon Dioxide 18 L Anion Gap 6 BUN 18 Creatinine 1.59 H Est Cr Clr Drug Dosing 25.0 Est GFR ( Amer) 39.9 Est GFR (Non-Af Amer) 34.4 BUN/Creatinine Ratio 11.3 Glucose 115 H POC Glucose 128 H Estimat Average Glucose 114 Hemoglobin A1c 5.6 Calcium 8.0 L Magnesium 1.8 Total Bilirubin 2.7 H AST 57 H ALT 17 Alkaline Phosphatase 611 H Troponin I High Sens 664.3 H* D Total Protein 6.1 Albumin 2.6 L Globulin 3.5 Albumin/Globulin Ratio 0.7 L Triglycerides 67 Cholesterol 102 LDL Cholesterol, Calc 45 VLDL Cholesterol, Calc 13 HDL Cholesterol 44 Cholesterol/HDL Ratio 2.3 08/09/23 13:04 WBC RBC Hgb Hct MCV MCH MCHC RDW Std Deviation RDW Coeff of Veda Plt Count MPV Immature Gran % (Auto) Neut % (Auto) Lymph % (Auto) [place] % (Auto) Eos % (Auto) Baso % (Auto) Neut # (Auto) Lymph # (Auto) [place] # (Auto) Eos # (Auto) Baso # (Auto) Immature Gran # (Auto) PT INR APTT PTT Ratio Heparin Anti-Xa, Unfract 0.98 H* Sodium Potassium Chloride Carbon Dioxide Anion Gap BUN Creatinine Est Cr Clr Drug Dosing Est GFR ( Amer) Est GFR (Non-Af Amer) BUN/Creatinine Ratio Glucose POC Glucose Estimat Average Glucose Hemoglobin A1c Calcium Magnesium Total Bilirubin AST ALT Alkaline Phosphatase Troponin I High Sens Total Protein Albumin Globulin Albumin/Globulin Ratio Triglycerides Cholesterol LDL Cholesterol, Calc VLDL Cholesterol, Calc HDL Cholesterol Cholesterol/HDL Ratio Diagnostic Findings ECHO 08/09/23: 1. Normal left ventricular size with mildly reduced systolic function. EF 45- 50%. Large area of apical akinesis. No left ventricular hypertrophy. 2. Sclerotic aortic valve without significant stenosis. 3. Mild mitral regurgitation. 4. Normal estimated right ventricular systolic pressure; RVSP 34 mmHg. 5. Technically difficult study, enhanced with IV Definity. 6. No prior study available for comparison. ECG personally reviewed 08/08/2023: Sinus rhythm 96 bpm. Normal ECG. Brain MRI report reviewed from 08/08/2023: No acute intracranial abnormality per radiology. Carotid duplex 08/08/2023: No hemodynamically significant stenosis. Venous Doppler 08/09/2023: No DVT bilateral lower extremities. Head CT 08/08/2023: No hemorrhage or stroke. CT abdomen/pelvis 07/28/2023: Left iliopsoas abscess with drainage catheter. Likely fistulous connection to the bladder. Multiple metastatic implants in the abdomen and pelvis unchanged from prior exam. Labs reviewed and notable for elevated high-sensitivity troponin, mildly abnormal renal function but improved from 07/24/2023. Pancytopenia. Stable hemoglobin. Excellent lipids. History and physical report reviewed. Telemetry personally reviewed: Sinus rhythm. No arrhythmia. Medications Administered Current Inpatient Medications Allopurinol (Allopurinol 100 Mg Tab) 200 mg PO DAILY JEFF Stop: 09/08/23 08:59 Last Admin: 08/09/23 08:28 Dose: 200 mg Atorvastatin Calcium (Atorvastatin 40 Mg Tab) 40 mg PO QAM [facility] Stop: 09/08/23 06:04 Last Admin: 08/09/23 09:53 Dose: 40 mg Cefdinir (Cefdinir 300 Mg Cap) 300 mg PO HS [facility]; Protocol Stop: 08/18/23 23:18 Last Admin: 08/09/23 00:07 Dose: 300 mg Clopidogrel Bisulfate (Clopidogrel Bisulfate 75 Mg Tab) 75 mg PO QAM [facility] Stop: 09/09/23 08:59 Dextrose (Dextrose 50% 50 Ml Syringe) 25 - 50 ml IV UD PRN; Protocol PRN Reason: Hypoglycemia Protocol Stop: 09/07/23 23:18 Glucagon (Glucagon For Inj 1 Mg Vial) 1 mg SQ UD PRN; Protocol PRN Reason: Hypoglycemia Protocol Stop: 09/07/23 23:18 Glucose (Glucose 10 Tab/Tube) 4 - 8 tab PO UD PRN; Protocol PRN Reason: Hypoglycemia Treatment Stop: 09/07/23 23:18 Glucose (Glucose 40% Gel 15 Gm Tube) 15 - 30 gm PO UD PRN; Protocol PRN Reason: Hypoglycemia Protocol Stop: 09/07/23 23:18 Heparin Sodium (Porcine) (Heparin 100 Unit/Ml 5ml Flush) 5 ml FLUSH PRN PRN PRN Reason: Flush Stop: 09/07/23 22:19 Potassium Chloride/Sodium Chloride (Normal Saline W/20 Meq Kcl) 20 meq in 1,000 mls @ 80 mls/hr IV .[id number] [facility]; Protocol Stop: 08/10/23 00:44 Last Admin: 08/09/23 12:36 Dose: 80 mls/hr Heparin Sodium/Dextrose (Heparin Sodium/Dextrose) 25,000 units in 500 mls @ 13 mls/hr IV .Q24H [facility]; Protocol Stop: 09/08/23 06:14 Last Titration: 08/09/23 14:45 Dose: 650 units/hr, 13 mls/hr Ondansetron HCl 8 mg/ Dextrose 54 mls @ 216 mls/hr IV Q4 PRN PRN Reason: Nausea Stop: 09/08/23 08:49 Last Infusion: 08/09/23 10:08 Dose: Infused Pantoprazole Sodium 40 mg/ (Dextrose) 100 mls @ 20 mls/hr IV Q5H [facility] Stop: 09/08/23 13:29 Last Admin: 08/09/23 13:20 Dose: 8 mg/hr, 20 mls/hr Latanoprost (Latanoprost 0.005% Op Soln 2.5 Ml Btl) 1 drops OPB HS [facility] Stop: 09/07/23 23:18 Last Admin: 08/09/23 00:07 Dose: 1 drops Metronidazole (Metronidazole 500 Mg Tab) 500 mg PO Q8 [facility]; Protocol Stop: 08/18/23 23:18 Last Admin: 08/09/23 15:01 Dose: Not Given Miscellaneous (Alphagan~Order Awaiting Action) 1 each N/A QS [facility] Stop: 09/08/23 00:00 Last Admin: 08/09/23 15:14 Dose: Not Given Miscellaneous (Carbohydrates For Hypoglycemia ) 15 - 30 gm PO UD PRN PRN Reason: Hypoglycemia Protocol Stop: 09/07/23 23:18 Vitamin D (Cholecalciferol 1,000 Units 25 Mcg Tab) 2,000 units PO QAM [facility] Stop: 09/08/23 08:59 Last Admin: 08/09/23 08:27 Dose: 2,000 units PG Care Time/CCT Total # of Minutes Spent Total Time Spent with Patient: Total time spent is greater than 50% in coordination of care (as documented) at patient's floor/unit and/or counseling patient: Coding Level of Care Code 24503 INT INP/OBS CARE 3/75MIN Diagnoses Cardiomyopathy I42.9 Elevated troponin R79.89 TIA (transient ischemic attack) G45.9 Stage 3b chronic kidney disease N18.32 Chronic kidney disease stage: stage 3 (moderate) Chronic kidney disease stage 3 subtype: stage 3b (GFR 30-44) Coffee ground emesis K92.0 GIB (gastrointestinal bleeding) K92.2 GI bleed type/associated pathology: unspecified gastrointestinal hemorrhage type (4) CKD (chronic kidney disease) Chronic kidney disease stage: stage 3 (moderate) Chronic kidney disease stage 3 subtype: stage 3b (GFR 30-44) Qualified Code(s): N18.32 - Chronic kidney disease, stage 3b (6) GIB (gastrointestinal bleeding) GI bleed type/associated pathology: unspecified gastrointestinal hemorrhage type Qualified Code(s): K92.2 - Gastrointestinal hemorrhage, unspecified
[2023-08-09] MEDS ORDERED: PANTOprazole 80 MG in DEXTROSE 5% 100 ML IV ONE (13:15)
[2023-08-09] MEDS: PANTOprazole 40 MG in DEXTROSE 5% MINI-B 100 ML IV SCH ×2 (13:20→17:33)
[2023-08-09 13:39] LABS: ANTI-Xa, UFH(UnfractionatedHep 0.98 IU/ml (0.3-0.7)
[2023-08-09] MEDS: metroNIDAZOLE 500 MG/100 ML BAG IV SCH (17:28)
[2023-08-09] MEDS: CEFEPIME 2,000 MG in SYRINGE 0 ML IV SCH (17:28)
[2023-08-09] MEDS: METOPROLOL SUCC 25MG EXT REL TAB PO SCH (18:32)
[2023-08-09 19:50] LABS: Hematocrit (blood only) 25.5 % (37.0-47.0); Hemoglobin 8.4 g/dl (12.0-16.0)
[2023-08-10] MEDS: ALPHAGAN~ORDER AWAITING ACTION SCH ×3 (00:11→17:43)
[2023-08-10] MEDS: PANTOprazole 40 MG in DEXTROSE 5% MINI-B 100 ML IV SCH ×5 (00:11→18:46)
[2023-08-10] MEDS: metroNIDAZOLE 500 MG/100 ML BAG IV SCH ×3 (00:11→17:41)
[2023-08-10 01:01] LABS: Hematocrit (blood only) 24.8 % (37.0-47.0); Hemoglobin 7.9 g/dl (12.0-16.0)
[2023-08-10 04:22] LABS: Basophils # (auto) 0.01 K/uL (0.00-0.20); Basophils % (auto) 0.2 %; Eosinophils # (auto) 0.18 K/uL (0.00-0.50); Hematocrit (blood only) 23.7 % (37.0-47.0); Hemoglobin 7.8 g/dl (12.0-16.0); Immature Granulocytes # (auto) 0.03 K/uL (0.01-0.20); Immature Granulocytes % (auto) 0.5 %; Lymphocytes # (auto) 0.38 K/uL (1.20-3.40); Lymphocytes % (auto) 6.3 %; Mean Corpuscular Hemoglobin 30.5 pg (25.0-34.0); Mean Corpuscular Hgb Conc 32.9 g/dL (32.0-36.0); Mean Corpuscular Volume 92.6 fL (80.0-100.0); Platelet Count 101 K/uL (130-400); RDW Coefficient of Variation 16.9 % (11.5-14.5); RDW Standard Deviation 57.1 fL (36.4-46.3); Red Blood Count 2.56 M/uL (4.20-5.40)
[2023-08-10 04:35] LABS: BUN Creatinine Ratio 10.9 (10-20); Calcium 7.6 mg/dl (8.6-10.3); Creatinine Clr Calc Pharmacy 24.1 ml/min; Est GFR (African American) 38.2 ml/min; Est GFR (Non-African American) 32.9 ml/min; Potassium 4.2 mmol/L (3.5-5.1)
[2023-08-10 05:22] LABS: Polychromasia 1+
[2023-08-10] MEDS: CEFEPIME 2,000 MG in SYRINGE 0 ML IV SCH (05:41)
[2023-08-10] MEDS: LACTATED RINGER'S 1,000 ML IV SCH ×2 (07:18→18:46)
[2023-08-10] MEDS: METOPROLOL SUCC 25MG EXT REL TAB PO SCH (08:20)
[2023-08-10] MEDS: allopurinoL 100 MG TAB PO SCH (08:20)
[2023-08-10] MEDS: ATORVASTATIN 40 MG TAB PO SCH (08:20)
[2023-08-10] MEDS: CHOLECALCIFEROL 1,000 UNITS 25 MCG TAB PO SCH (08:20)
[2023-08-10] MEDS ORDERED: CLOPIDOGREL BISULFATE 75 MG TAB PO SCH (09:00)
[2023-08-10 09:15] LABS: Hematocrit (blood only) 23.8 % (37.0-47.0); Hemoglobin 7.7 g/dl (12.0-16.0)
--- NOTE | 2023-08-10 10:16 | Cardiology Progress Note ---
Date of Service August 10, 2023 Assessment & Plan (1) Cardiomyopathy: (2) Elevated troponin: (3) TIA (transient ischemic attack): (4) CKD (chronic kidney disease): (5) Coffee ground emesis: (6) GIB (gastrointestinal bleeding): Plan ASSESSMENT/PLAN: 1. NSTEMI/elevated troponin: She did not present with acute coronary syndrome and has no symptoms concerning for angina. Elevated troponin could be due to transient LV systolic dysfunction, TIA, or other possibility. There is no urgent indication for cardiac catheterization and given active GI bleed and presentation of TIA, would not pursue cardiac catheterization at this time until other issues are improved/settled, unless emergently needed. Metoprolol succinate 25 mg once daily initiated yesterday but she has not received a dose due to mild hypotension. She states that her blood pressure is chronically low and she is asymptomatic. Will change hold parameters to hold for systolic blood pressure less than 90 mmHg. 2. Cardiomyopathy: LV systolic function is mildly reduced but apical territory akinesis. Etiology uncertain. Cannot exclude underlying ischemic heart disease however she had no symptoms to suggest active ischemia. Cannot exclude chemotherapy is playing a role or stress-induced cardiomyopathy given involved territory. Given that she presented with TIA symptoms, could consider anticoagulation therapy for concern of thrombus, although overall LV systolic function is not severely reduced. Either way, with active GI bleeding, would not recommend further anticoagulation. Metoprolol succinate 25 mg once daily as above. Anticipate repeating limited echo later this hospital stay. Medical therapy as tolerated. Will consider VIRAJ inhibitor/Arni/ARB. 3. TIA: Her presenting symptom to the hospital seems consistent with TIA. Consider neurology evaluation. 4. CKD: As per primary hospitalist. 5. Coffee-ground emesis/GI bleed: Blood noted in her ostomy and coffee-ground emesis per nursing staff. Each ED pending. Anemia as per primary hospitalist service. 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 7. Pancytopenia: Follows with hematology/oncology. Chronic anemia. 8. Disposition: Cardiology will continue to follow. Patient care discussed with Dr. Encarnacion and nursing staff. Admission and Anticipated Discharge Date Admission Date: August 08, 2023 Subjective She denies chest pain, shortness of breath, syncope, near syncope, palpitations, orthopnea, or further nausea/vomiting. When she emptied her ostomy yesterday, she states that there was quite a bit of blood but her stool appeared normal today. She was alone in her hospital room. Physical Exam Physical Exam: Gen.: No acute distress. Alert and oriented. HEENT: Anicteric sclera. Neck: No JVD. Cardiac: No ventricular heave. Regular. Normal S1-S2. 2/6 systolic murmur. No rubs or gallops. Pulmonary: Clear to auscultation bilaterally without wheezes, rales, or rhonchi. Abdomen: Soft, nontender, nondistended, with normoactive bowel sounds. No bruits noted. Ostomy. Extremities: 2+ radial pulses bilaterally. 2+ posterior tibialis pulses bilaterally. No significant pitting edema. No cyanosis. Psychiatric: Affect appears appropriate. Results & Data Vital Signs (Past 12 Hours) Vital Signs Temp Pulse Pulse Resp BP BP Pulse Ox 08/10/23 08:00 96 H 08/10/23 07:22 37 C 98 H 18 92/58 L 94 08/10/23 06:00 94 H 25 H 100 08/10/23 05:00 93 H 16 100 08/10/23 04:00 36.7 C 08/10/23 04:00 96 H 6 L 100 08/10/23 04:00 94/53 L 08/10/23 03:00 94 H 7 L 100 08/10/23 02:00 93 H 14 100 08/10/23 01:00 89 17 08/10/23 00:00 89 08/10/23 00:00 36.7 C 08/10/23 00:00 93 H 18 08/10/23 00:00 98/53 L 08/09/23 23:00 94 H 17 O2 Del Method 08/10/23 08:00 08/10/23 07:22 Room Air 08/10/23 06:00 08/10/23 05:00 08/10/23 04:00 08/10/23 04:00 08/10/23 04:00 08/10/23 03:00 08/10/23 02:00 08/10/23 01:00 08/10/23 00:00 08/10/23 00:00 08/10/23 00:00 08/10/23 00:00 08/09/23 23:00 Laboratory Results Laboratory Results - last 24 hr 08/09/23 08/09/23 08/09/23 12:43 13:02 13:04 WBC RBC Hgb 8.8 L Hct MCV MCH MCHC RDW Std Deviation RDW Coeff of Veda Plt Count MPV Immature Gran % (Auto) Neut % (Auto) Lymph % (Auto) [place] % (Auto) Eos % (Auto) Baso % (Auto) Neut # (Auto) Lymph # (Auto) [place] # (Auto) Eos # (Auto) Baso # (Auto) Immature Gran # (Auto) Polychromasia Heparin Anti-Xa, Unfract 0.98 H* Sodium Potassium Chloride Carbon Dioxide Anion Gap BUN Creatinine Est Cr Clr Drug Dosing Est GFR ( Amer) Est GFR (Non-Af Amer) BUN/Creatinine Ratio Glucose POC Glucose 128 H Calcium Troponin I High Sens 08/09/23 08/10/23 08/10/23 19:42 00:13 04:04 WBC 6.00 RBC 2.56 L Hgb 8.4 L 7.9 L 7.8 L Hct 25.5 L 24.8 L 23.7 L MCV 92.6 MCH 30.5 MCHC 32.9 RDW Std Deviation 57.1 H RDW Coeff of Veda 16.9 H Plt Count 101 L MPV 12.0 Immature Gran % (Auto) 0.5 Neut % (Auto) 85.0 Lymph % (Auto) 6.3 [place] % (Auto) 5.0 Eos % (Auto) 3.0 Baso % (Auto) 0.2 Neut # (Auto) 5.10 Lymph # (Auto) 0.38 L [place] # (Auto) 0.30 Eos # (Auto) 0.18 Baso # (Auto) 0.01 Immature Gran # (Auto) 0.03 Polychromasia 1+ Heparin Anti-Xa, Unfract Sodium 139 Potassium 4.2 Chloride 116 H Carbon Dioxide 17 L Anion Gap 6 BUN 18 Creatinine 1.65 H Est Cr Clr Drug Dosing 24.1 Est GFR ( Amer) 38.2 Est GFR (Non-Af Amer) 32.9 BUN/Creatinine Ratio 10.9 Glucose 123 H POC Glucose Calcium 7.6 L Troponin I High Sens 282.6 H* D 08/10/23 08:48 WBC RBC Hgb 7.7 L Hct 23.8 L MCV MCH MCHC RDW Std Deviation RDW Coeff of Veda Plt Count MPV Immature Gran % (Auto) Neut % (Auto) Lymph % (Auto) [place] % (Auto) Eos % (Auto) Baso % (Auto) Neut # (Auto) Lymph # (Auto) [place] # (Auto) Eos # (Auto) Baso # (Auto) Immature Gran # (Auto) Polychromasia Heparin Anti-Xa, Unfract Sodium Potassium Chloride Carbon Dioxide Anion Gap BUN Creatinine Est Cr Clr Drug Dosing Est GFR ( Amer) Est GFR (Non-Af Amer) BUN/Creatinine Ratio Glucose POC Glucose Calcium Troponin I High Sens Diagnostic Findings Labs reviewed and notable for abnormal but stable renal function, normal potassium, downtrending hemoglobin. ECG 08/09/2023 personally reviewed: Sinus rhythm 83 bpm. Prolonged QT. Inferior and anterior T wave inversions now present. Telemetry personally reviewed: Sinus rhythm. No arrhythmia. VQ scan 08/10/2023: Low probability of PE per radiology. Medications Administered Current Inpatient Medications Allopurinol (Allopurinol 100 Mg Tab) 200 mg PO DAILY JEFF Stop: 09/08/23 08:59 Last Admin: 08/10/23 08:20 Dose: Not Given Atorvastatin Calcium (Atorvastatin 40 Mg Tab) 40 mg PO QAM JEFF Stop: 09/08/23 06:04 Last Admin: 08/10/23 08:20 Dose: Not Given Dextrose (Dextrose 50% 50 Ml Syringe) 25 - 50 ml IV UD PRN; Protocol PRN Reason: Hypoglycemia Protocol Stop: 09/07/23 23:18 Glucagon (Glucagon For Inj 1 Mg Vial) 1 mg SQ UD PRN; Protocol PRN Reason: Hypoglycemia Protocol Stop: 09/07/23 23:18 Glucose (Glucose 10 Tab/Tube) 4 - 8 tab PO UD PRN; Protocol PRN Reason: Hypoglycemia Treatment Stop: 09/07/23 23:18 Glucose (Glucose 40% Gel 15 Gm Tube) 15 - 30 gm PO UD PRN; Protocol PRN Reason: Hypoglycemia Protocol Stop: 09/07/23 23:18 Heparin Sodium (Porcine) (Heparin 100 Unit/Ml 5ml Flush) 5 ml FLUSH PRN PRN PRN Reason: Flush Stop: 09/07/23 22:19 Ondansetron HCl 8 mg/ Dextrose 54 mls @ 216 mls/hr IV Q4 PRN PRN Reason: Nausea Stop: 09/08/23 08:49 Last Infusion: 08/09/23 10:08 Dose: Infused Pantoprazole Sodium 40 mg/ (Dextrose) 100 mls @ 20 mls/hr IV Q5H [facility] Stop: 09/08/23 13:29 Last Admin: 08/10/23 05:30 Dose: 8 mg/hr, 20 mls/hr Cefepime HCl 2,000 mg/ Syringe 20 mls @ 5 mls/min IV Q12H [facility]; Protocol Stop: 08/19/23 16:59 Last Admin: 08/10/23 05:41 Dose: 5 mls/min Metronidazole (Flagyl) 500 mg in 100 mls @ 100 mls/hr IV Q8H [facility]; Protocol Stop: 08/19/23 16:59 Last Infusion: 08/10/23 08:55 Dose: Infused Lactated Ringer's (Lr) 1,000 mls @ 80 mls/hr IV .[id number] [facility] Stop: 09/09/23 06:59 Last Admin: 08/10/23 07:18 Dose: 80 mls/hr Latanoprost (Latanoprost 0.005% Op Soln 2.5 Ml Btl) 1 drops OPB HS [facility] Stop: 09/07/23 23:18 Last Admin: 08/09/23 21:12 Dose: 1 drops Metoprolol Succinate (Metoprolol Succ 25mg Ext Rel Tab) 25 mg PO QAM [facility] Stop: 09/08/23 16:29 Last Admin: 08/10/23 08:20 Dose: Not Given Miscellaneous (Alphagan~Order Awaiting Action) 1 each N/A QS [facility] Stop: 09/08/23 00:00 Last Admin: 08/10/23 07:11 Dose: Not Given Miscellaneous (Carbohydrates For Hypoglycemia ) 15 - 30 gm PO UD PRN PRN Reason: Hypoglycemia Protocol Stop: 09/07/23 23:18 Vitamin D (Cholecalciferol 1,000 Units 25 Mcg Tab) 2,000 units PO QAM [facility] Stop: 09/08/23 08:59 Last Admin: 08/10/23 08:20 Dose: Not Given PG Care Time/CCT Total # of Minutes Spent Total Time Spent with Patient: Total time spent is greater than 50% in coordination of care (as documented) at patient's floor/unit and/or counseling patient: Coding Level of Care Code 40217 SUB INP/OBS CARE 50MIN Diagnoses Cardiomyopathy I42.9 Elevated troponin R79.89 TIA (transient ischemic attack) G45.9 Stage 3b chronic kidney disease N18.32 Chronic kidney disease stage: stage 3 (moderate) Chronic kidney disease stage 3 subtype: stage 3b (GFR 30-44) Coffee ground emesis K92.0 GIB (gastrointestinal bleeding) K92.2 GI bleed type/associated pathology: unspecified gastrointestinal hemorrhage type (4) CKD (chronic kidney disease) Chronic kidney disease stage: stage 3 (moderate) Chronic kidney disease stage 3 subtype: stage 3b (GFR 30-44) Qualified Code(s): N18.32 - Chronic kidney disease, stage 3b (6) GIB (gastrointestinal bleeding) GI bleed type/associated pathology: unspecified gastrointestinal hemorrhage type Qualified Code(s): K92.2 - Gastrointestinal hemorrhage, unspecified
--- NOTE | 2023-08-10 11:52 | Nuclear Medicine Report ---
NM pul perfusion CLINICAL HISTORY: SOB, elevated trops, Hx CA, CKD, R/O PE Technique: Perfusion imaging was performed in multiple projections after the intravenous injection of mCi of Tc-99m labeled macroaggregated albumin (MAA). Comparison: Comparison is made to CT chest 06/02/2023 FINDINGS/IMPRESSION: Heterogeneous perfusion is seen bilaterally without evidence of focal wedge-sha ped defect. Low probability of pulmonary embolism. Focal uptake in the right anterior chest, likely o utside the patient. ACT 112: Negative or not required by law. Electronically signed by: Chavo Arreola M.D. 08/10/2023 11:50 AM
[2023-08-10 13:02] LABS: Hematocrit (blood only) 26.2 % (37.0-47.0); Hemoglobin 8.8 g/dl (12.0-16.0)
--- NOTE | 2023-08-10 13:55 | Hospitalist Progress Note ---
Date of Service August 10, 2023 Assessment & Plan (1) Coffee ground emesis: Plan: - Patient with new dark colored (coffee colored) emesis yesterday No associated abdominal pain Only reports having some nausea - Put NPO for now - Started Protonix drip - DC Aspirin - Consulted gastroenterology. EGD to be done today (2) Cardiomyopathy: Plan: - Large apical akinesis found in TTE as well as mildly reduced LV function (EF 45-50) -- uncertain cause - Cardiology consulted: cannot r/o ischemic cause, but catheterization is not favored right now given possible GI bleed also cannot r/o chemotherapy is playing a role or stress-induced cardiomyopathy Would benefit from anticoagulation, but currently will remain on hold due to possible GI bleed. > Will re-assess after EGD is done - Metoprolol succ 25mg added, but patient has not been able to take it due to soft BP - May repeat TTE soon (3) Elevated troponin: Plan: - Troponins in ED elevated at 66 and following increasing trend (last value 664) EKG without ST segment or T wave abnormalities, NSR in the 90s Patient wo symptoms of chest pain or left arm/jaw pain or numbness Gave ASA, Atorvastatin 40mg, and Heparin drip Hold on beta blockers due to low BP - V/Q scan to r/o PE as a cause -- Negative CTA not done due to hx of CKD - Cardiology consult placed. No ACS; increase in troponins may be due to transient LV dysfunction, TIA, or other cause Defer cath for now given possible GI bleed Start beta danie -- hasn't been able to use due to soft BP (4) Stroke-like symptoms: Plan: - Patient with strokelike symptoms for approximately 10 to 15 minutes (i.e. slurring of speech and word finding difficulty) Symptoms not present in today's evaluation - Noncontrast CT of the brain was negative in the ER - MRI wo contrast negative for acute changes - Bilateral carotid artery duplex without significant stenosis to obstruct flow - TTE: Mildly reduced EF to 45-50% Large area of apical akinesis Technically difficult study - ASA given in ED. DC after onset of coffee ground emesis (5) Anemia: Plan: Anemia of chronic disease secondary to CKD vs acute upper GI bleed. Hgb 8.9 on arrival. Decreased to 7.7. Patient remained asymptomatic HH Q4H -- Hgb increased to 8.8 in last lab Rest as above (6) CKD (chronic kidney disease): Plan: - Stable CKD stage III - No CTAs were ordered secondary to this (7) Diabetes: Plan: - Stable. - Will order Accu-Cheks will be called if less than 80 or greater than 180. 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 Drain in place in LLQ (present since 06/11/23); ostomy also in place Was following with a colorectal surgeon as outpatient. She is on Flagyl and a cephalosporin as an outpatient. Will continue these at this time as IV given npo status and inability to swallow without regurgitating. (9) Thrombocytopenia: Plan: - Stable at 97,000 on admission. 101,000 today - Monitor CBC (10) Hypokalemia: Plan: Mild at 3.3 on admission. Replaced 4.2 this morning (11) Hypomagnesemia: Plan: - 1.5 on admission. Replaced. Corrected to 1.8 Plan Admit to PCU/Telemetry Diet: NPO Lines: rectal drain, colostomy, medport (right upper chest) DVT ppx: SCDs Code: Full Admission and Anticipated Discharge Date Admission Date: August 08, 2023 Supervising Physician Co-Signing Physician Notes I personally examined the patient and verified all amin points of history and exam, discussed case, and agree with decision making with Dr Sweet feeling OK no vomiting since yesterday no blood in ostomy today. for EGD later today vitals noted nad heent nc at mmm breathing unlabored no accessory muscles good effort skin no rashes no pallor or icterus neuro no focal deficits Coffee ground emesis and blood stain in ostomy - was on heparin gtt - since stopped. on PPI. scope today. Hgb in her baseline range. findings on scope will help guide risk/benefit for antiplatelet or anticoagulant for TIA, cardiomyopathy. Elevated troponin/new dx dilated cardiomyopathy - Did not present with ACS symptoms. large area of apical akinesis. more than likely stress induced given pattern. can't entirely r/o ischemic but risk/benefit for LHC more nebulous. beta danie and afterload reduction difficult to dose due to vitals. TIA - Presented to ED with TIA symptoms. Negative MRI for acute changes. biggest concern would be cardioembolic given new dilated cardiomyopathy Appendicial ca with stump abscess - has been on chemo. Drain placed May 2023. follows with general surgery. continue abx SCD Subjective Patient is a 63 y/o female with PMHx of Appendiceal adenocarcinoma with rectal abscess and rectal tube drainage who arrived to the ED due to new onset slurring of speech and word finding difficulty plus what she described as a "funny feelin g in her head". She also refers she has some left leg weakness that began around 07/28/23 or 07/29/23. She refers feeling well. She has not eaten anything since yesterday. Has not had another episode of coffee ground emesis since that episode reported yesterday. Denies epigastric or abdominal pain, chest pain, SOB, or any other symptom. Review of Systems Review of Systems: As per HPI. Physical Exam Physical Exam: General: AAOx3, afebrile, NAD HEENT: Normocephalic, PERRLA, EOM intact HEART: RRR, no r/m/g LUNGS: CTA, normal respiratory effort, no respiratory distress CHEST: medport noted in right upper chest ABDOMEN: Soft, nontender, nondistended, colostomy in place, drain noted in LLQ for rectal abscess. EXTREMITIES: no swelling or calf tenderness in bilateral LE, normal strength in right LE but left LE with some weakness. Results & Data Results & Data Vital Signs (Past 12 Hours) Vital Signs Temp Pulse Pulse Resp BP BP Pulse Ox 08/10/23 12:23 36.5 C 94 H 16 93/52 L 100 08/10/23 08:00 96 H 08/10/23 07:22 37 C 98 H 18 92/58 L 94 08/10/23 06:00 94 H 25 H 100 08/10/23 05:00 93 H 16 100 08/10/23 04:00 36.7 C 08/10/23 04:00 96 H 6 L 100 08/10/23 04:00 94/53 L 08/10/23 03:00 94 H 7 L 100 08/10/23 02:00 93 H 14 100 O2 Del Method 08/10/23 12:23 Room Air 08/10/23 08:00 08/10/23 07:22 Room Air 08/10/23 06:00 08/10/23 05:00 08/10/23 04:00 08/10/23 04:00 08/10/23 04:00 08/10/23 03:00 08/10/23 02:00 Resident Activity Tracking Resident Involvement: Resident Care Provided Care Provided: Adult Hospital Medicine (6) CKD (chronic kidney disease) Chronic kidney disease stage: stage 3 (moderate) Chronic kidney disease stage 3 subtype: stage 3b (GFR 30-44) Qualified Code(s): N18.32 - Chronic kidney disease, stage 3b
--- NOTE | 2023-08-10 14:00 | Gastrointestinal Consultation ---
Date of Consultation August 10, 2023 Assessment & Plan (1) Coffee ground emesis: Pleasant woman with coffee ground emesis. Plan EGD. She also has blood in her stoma output. Will discuss whether she wants to have lower intestines evaluated. 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 She had two episodes of hematemesis yesterday. She is also seeing bright red blood in her ostomy bag. Currently she feels well. Allergies Allergy/AdvReac Type Severity Reaction Status Date / Time pineapple Allergy Severe anaphylaxis Verified 08/08/23 19:59 tomato Allergy Severe hives, Verified 08/08/23 19:59 throat tightness cantaloupe Allergy Intermediate Hives Verified 08/08/23 19:59 [place] And Derivatives Allergy Intermediate hives Verified 08/08/23 19:59 clarithromycin Allergy Intermediate hives Verified 08/08/23 19:59 lemon Allergy Intermediate Hives Verified 08/08/23 19:59 lemon oil Allergy Intermediate Hives Verified 08/08/23 19:59 [place] Allergy Intermediate Hives Verified 08/08/23 19:59 naproxen Allergy Intermediate hives Verified 08/08/23 19:59 orange Allergy Intermediate Hives Verified 08/08/23 19:59 orange (food color) Allergy Intermediate Hives Verified 08/08/23 19:59 orange flavor Allergy Intermediate Hives Verified 08/08/23 19:59 orange juice Allergy Intermediate Hives Verified 08/08/23 19:59 Penicillins Allergy Intermediate hives Verified 08/08/23 19:59 latex Allergy Mild rash Verified 08/08/23 19:59 Home Medications Medication Instructions Recorded Confirmed Type brimonidine 0.1 % eye drops 1 drp OPB TID 05/12/19 08/08/23 History (Alphagan P) cholecalciferol (vitamin D3) 50 2,000 unit PO QAM 05/12/19 08/08/23 History mcg (2,000 unit) capsule (Vitamin D3) latanoprost 0.005 % eye drops 1 drp OPB HS 05/12/19 08/08/23 History (Xalatan) multivitamin 1 tab PO QAM 05/12/19 08/08/23 History ondansetron HCl 8 mg tablet 8 mg PO Q8H PRN Nausea 12/18/20 08/08/23 History prochlorperazine maleate 10 mg 10 mg PO Q6 PRN Nausea 12/18/20 08/08/23 History tablet allopurinol 100 mg tablet 200 mg PO DAILY 02/17/23 08/08/23 History potassium chloride 10 mEq 10 meq PO DAILY 02/17/23 08/08/23 History capsule,extended release cefdinir 300 mg capsule 300 mg PO HS 3 weeks #21 caps 07/29/23 08/08/23 Rx metronidazole 500 mg tablet 500 mg PO Q8 3 weeks #63 tabs 07/29/23 08/08/23 Rx Patient History Medical History Hypomagnesemia Hypokalemia Hyperkalemia 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, unproven Near syncope Acute hypokalemia ABILIO (acute kidney injury) UTI (urinary tract infection) Acute kidney injury superimposed on CKD Acute hypokalemia Borderline diabetes diet controlled Chronic ITP (idiopathic thrombocytopenia) platelet WNL on 06/01/20 labs Anemia chronic, baseline hgb 9-11 range per chart review Primary cancer of appendix 2013 s/p surgical intervention, chemo currently Pancreatitis post-op (2014) Mucinous adenocarcinoma of appendix (~03/2013) 2013 Hyponatremia High cholesterol Surgical History Encounter for insertion of venous access port 2012 (subsequent removal) History of laparotomy USO + salipngectomy Hx laparoscopic cholecystectomy 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 Family History Other Diabetes Heart disease Hypertension Stroke Social History Smoking Status: Never smoker Second Hand Exposure: No; Do You Dip or Chew Tobacco: No; Hx Alcohol Use: No Hx Substance Use: No Preferred Language: Chinese Communication Ability: Effective Visual Impairment: No Limitations Incinerator Operator Required: No Beliefs That Will Affect Care: None marital status: Current Living Situation: Family Current Living Situation Comment: lives with son Feels Safe at Home: Yes Assistive Devices: Other Review of Systems Review of Systems: All systems reviewed & are unremarkable except as noted in HPI & below Physical Exam Constitutional: WD/WN, vitals as above Neck: trachea midline, no thyromegaly Respiratory: normal respiratory effort, lungs clear to auscultation Cardiovascular: RRR, no murmur, no edema Gastrointestinal (Abdomen): normal bowel sounds, soft, nontender, no hepatosplenomegaly Results & Data Vital Signs (Past 12 Hours) Vital Signs Temp Pulse Pulse Resp BP BP Pulse Ox 08/10/23 12: 36.5 C 94 H 16 93/52 L 100 08/10/23 08:00 96 H 08/10/23 07:22 37 C 98 H 18 92/58 L 94 08/10/23 06:00 94 H 25 H 100 08/10/23 05:00 93 H 16 100 08/10/23 04:00 36.7 C 08/10/23 04:00 96 H 6 L 100 08/10/23 04:00 94/53 L 08/10/23 03:00 94 H 7 L 100 08/10/23 02:00 93 H 14 100 O2 Del Method 08/10/23 12:23 Room Air 08/10/23 08:00 08/10/23 07:22 Room Air 08/10/23 06:00 08/10/23 05:00 08/10/23 04:00 08/10/23 04:00 08/10/23 04:00 08/10/23 03:00 08/10/23 02:00 Laboratory Results 08/10/23 08/10/23 08/10/23 Range/Units 12:42 12:19 10:21 WBC (4.8-10.8) K/ul RBC (4.20-5.40) M/uL Hgb 8.8 L (12.0-16.0) g/dl Hct 26.2 L (37.0-47.0) % MCV (80.0-100.0) fL MCH (25.0-34.0) pg MCHC (32.0-36.0) g/dL RDW Std Deviation (36.4-46.3) fL RDW Coeff of Veda (11.5-14.5) % Plt Count (130-400) K/uL MPV (9.4-12.4) fL Immature Gran % (Auto) % Neut % (Auto) % Lymph % (Auto) % Story % (Auto) % Eos % (Auto) % Baso % (Auto) % Neut # (Auto) (1.40-6.50) K/uL Lymph # (Auto) (1.20-3.40) K/uL Story # (Auto) (0.11-0.59) K/uL Eos # (Auto) (0.00-0.50) K/uL Baso # (Auto) (0.00-0.20) K/uL Immature Gran # (Auto) (0.01-0.20) K/uL Polychromasia Sodium (136-145) mmol/L Potassium (3.5-5.1) mmol/L Chloride (98-107) mmol/L Carbon Dioxide (21-32) mmol/L Anion Gap (3-11) BUN (6-23) mg/dl Creatinine (0.6-1.2) mg/dl Est Cr Clr Drug Dosing ml/min Est GFR ( Amer) ml/min Est GFR (Non-Af Amer) ml/min BUN/Creatinine Ratio (10-20) Glucose (70-99(Fasting)) mg/dl POC Glucose 96 (70-99) mg/dl Calcium (8.6-10.3) mg/dl Troponin I High Sens (0-14) pg/ml Blood Type B Positive Antibody Screen POSITIVE A Antibody Identification Pending Antibody ID Comment Pending Elution Direct Antiglob Test Positive A (Negative) LEDA (IgG-AHG) Weak Pos A (Negative) LEDA, Polyspecific Weak Pos A (Negative) LEDA C3b, C3d 5 Min Neg (Negative) 08/10/23 08/10/23 08/10/23 Range/Units 08:48 04:04 00:13 WBC 6.00 (4.8-10.8) K/ul RBC 2.56 L (4.20-5.40) M/uL Hgb 7.7 L 7.8 L 7.9 L (12.0-16.0) g/dl Hct 23.8 L 23.7 L 24.8 L (37.0-47.0) % MCV 92.6 (80.0-100.0) fL MCH 30.5 (25.0-34.0) pg MCHC 32.9 (32.0-36.0) g/dL RDW Std Deviation 57.1 H (36.4-46.3) fL RDW Coeff of Veda 16.9 H (11.5-14.5) % Plt Count 101 L (130-400) K/uL MPV 12.0 (9.4-12.4) fL Immature Gran % (Auto) 0.5 % Neut % (Auto) 85.0 % Lymph % (Auto) 6.3 % Story % (Auto) 5.0 % Eos % (Auto) 3.0 % Baso % (Auto) 0.2 % Neut # (Auto) 5.10 (1.40-6.50) K/uL Lymph # (Auto) 0.38 L (1.20-3.40) K/uL Story # (Auto) 0.30 (0.11-0.59) K/uL Eos # (Auto) 0.18 (0.00-0.50) K/uL Baso # (Auto) 0.01 (0.00-0.20) K/uL Immature Gran # (Auto) 0.03 (0.01-0.20) K/uL Polychromasia 1+ Sodium 139 (136-145) mmol/L Potassium 4.2 (3.5-5.1) mmol/L Chloride 116 H (98-107) mmol/L Carbon Dioxide 17 L (21-32) mmol/L Anion Gap 6 (3-11) BUN 18 (6-23) mg/dl Creatinine 1.65 H (0.6-1.2) mg/dl Est Cr Clr Drug Dosing 24.1 ml/min Est GFR ( Amer) 38.2 ml/min Est GFR (Non-Af Amer) 32.9 ml/min BUN/Creatinine Ratio 10.9 (10-20) Glucose 123 H (70-99(Fasting)) mg/dl POC Glucose (70-99) mg/dl Calcium 7.6 L (8.6-10.3) mg/dl Troponin I High Sens (0-14) pg/ml Blood Type Antibody Screen Antibody Identification Antibody ID Comment Elution Direct Antiglob Test (Negative) LEDA (IgG-AHG) (Negative) LEDA, Polyspecific (Negative) LEDA C3b, C3d 5 Min (Negative) 12/17/23 Range/Units 19:42 WBC (4.8-10.8) K/ul RBC (4.20-5.40) M/uL Hgb 8.4 L (12.0-16.0) g/dl Hct 25.5 L (37.0-47.0) % MCV (80.0-100.0) fL MCH (25.0-34.0) pg MCHC (32.0-36.0) g/dL RDW Std Deviation (36.4-46.3) fL RDW Coeff of Veda (11.5-14.5) % Plt Count (130-400) K/uL MPV (9.4-12.4) fL Immature Gran % (Auto) % Neut % (Auto) % Lymph % (Auto) % Story % (Auto) % Eos % (Auto) % Baso % (Auto) % Neut # (Auto) (1.40-6.50) K/uL Lymph # (Auto) (1.20-3.40) K/uL Story # (Auto) (0.11-0.59) K/uL Eos # (Auto) (0.00-0.50) K/uL Baso # (Auto) (0.00-0.20) K/uL Immature Gran # (Auto) (0.01-0.20) K/uL Polychromasia Sodium (136-145) mmol/L Potassium (3.5-5.1) mmol/L Chloride (98-107) mmol/L Carbon Dioxide (21-32) mmol/L Anion Gap (3-11) BUN (6-23) mg/dl Creatinine (0.6-1.2) mg/dl Est Cr Clr Drug Dosing ml/min Est GFR ( Amer) ml/min Est GFR (Non-Af Amer) ml/min BUN/Creatinine Ratio (10-20) Glucose (70-99(Fasting)) mg/dl POC Glucose (70-99) mg/dl Calcium (8.6-10.3) mg/dl Troponin I High Sens 282.6 H* D (0-14) pg/ml Blood Type Antibody Screen Antibody Identification Antibody ID Comment [place] Direct Antiglob Test (Negative) LEDA (IgG-AHG) (Negative) LEDA, Polyspecific (Negative) LEDA C3b, C3d 5 Min (Negative) Diagnostic Findings Head CT 08/08/23 17:59 CT SCAN OF THE BRAIN WITHOUT IV CONTRAST CLINICAL HISTORY: Neurological deficit. Stroke like symptoms. COMPARISON STUDY: CT of the brain dated 07/26/2023. TECHNIQUE: Unenhanced axial CT scan of the brain is performed from the vertex to the skull base. A dose lowering technique was utilized adhering to the principles of ALARA. FINDINGS: Brain parenchyma: There is minimal microangiopathic change. There is no hemorrhage, mass effect, or evidence of acute territorial ischemia by CT criteria. Mclean-white matter differentiation is preserved. No extra-axial fluid collection is seen. Ventricles, sulci, cisterns: Normal in configuration. Intracranial vasculature: There is atherosclerotic calcification of the cavernous carotid and vertebral arteries. Calvarium: Unremarkable. Sinuses and mastoids: There is near complete opacification of the right sphenoid sinus. Thickening and sclerosis of the sinus wall suggests chronicity. The remaining visualized paranasal sinuses are clear. The mastoid air cells are well pneumatized. Orbits: The bony orbits are grossly intact. IMPRESSION: There is no hemorrhage, mass effect, or evidence of acute territorial ischemia by CT criteria. ACT 112: Negative or not required by law. Electronically signed by: Jerald Sanders M.D. 08/08/2023 6:51 PM Brain MRI 08/08/23 19:51 MRI OF THE BRAIN WITHOUT IV CONTRAST CLINICAL HISTORY: Transient ischemic attack. COMPARISON STUDY: CT of the brain dated 08/08/2023 TECHNIQUE: MRI of the brain was performed utilizing various T1 and T2-weighted sequences in the axial, sagittal, and coronal planes. IV contrast was not administered for this examination. FINDINGS: Brain parenchyma: The brain parenchyma is normal in appearance. There is no h emorrhage or mass effect. There is no restricted diffusion to suggest acute ischemia. Mclean-white matter differentiation is preserved. Mineralization is noted in the basal ganglia. No extra-axial fluid collection is seen. The cerebellar tonsils are normal in configuration. Ventricles, sulci, and cisterns: Normal in configuration. Pituitary and sella: Unremarkable. Intracranial vasculature: Normal flow voids are maintained at the skull base. Orbits: The bony orbits are grossly intact. Orbital contents are normal in appearance. Sinuses and mastoids: There is near-complete opacification of the right sphenoid sinus. The remaining paranasal sinuses and mastoid air cells are clear. Calvarium: Unremarkable. Cervical cord: Partially visualized cervical spinal cord is normal in morphology and signal intensity. IMPRESSION: No acute intracranial abnormality. ACT 112: Negative or not required by law. Electronically signed by: Jerald Sanders M.D. 08/08/2023 10:27 PM Carotid Doppler Study 08/08/23 19:51 ULTRASOUND OF THE CAROTID ARTERIES CLINICAL HISTORY: Transient ischemic attack. COMPARISON STUDY: No priors. TECHNIQUE: Real-time, grayscale, and color Doppler sonography of the carotid arteries is performed. Images are reviewed in the transverse and longitudinal planes. FINDINGS: The carotid arteries are patent bilaterally and demonstrate antegrade flow. There is mild atherosclerotic plaque seen in the carotid bulbs. Normal doppler arterial waveforms are seen throughout. Velocity measurements are listed below. Common carotid peak systolic velocity (cm/sec): RIGHT: 79 LEFT: 102 ICA proximal peak systolic velocity (cm/sec): RIGHT: 67 LEFT: 55 ICA mid peak systolic velocity (cm/sec): RIGHT: 50 LEFT: 78 ICA distal peak systolic velocity (cm/sec): RIGHT: 79 LEFT: 112 ICA/CC peak systolic ratio: RIGHT: 1.0 LEFT: 1.1 Antegrade flow was shown in the vertebral arteries. The external carotid arteries are patent. IMPRESSION: 1. There is no sonographic evidence of hemodynamically significant stenosis in the right or left carotid arterial system. 2. Antegrade flow is shown in the vertebral arteries. ACT 112: Negative or not required by law. Electronically signed by: Jerald Sanders M.D. 08/08/2023 10:24 PM Venous Doppler Study 08/09/23 06:18 ULTRASOUND BILATERAL LOWER EXTREMITY VENOUS CLINICAL HISTORY: Lower extremity edema. COMPARISON STUDY: Bilateral lower extremity venous ultrasound dated 07/29/2023 TECHNIQUE: Real-time, grayscale, and color Doppler sonography of the deep veins of the right and left lower extremity was performed from the inguinal crease to the calf. Compression and augmentation were utilized. FINDINGS: There is no sonographic evidence of deep venous thrombosis identified in the right or left lower extremity. The common femoral, superficial femoral, and popliteal veins are patent and normally compressible bilaterally. The greater saphenous vein and the profunda femoris vein at the junction with the common femoral vein are clear in both legs. The visualized calf veins are patent bilaterally. IMPRESSION: There is no sonographic evidence of deep venous thrombosis identified in the right or left lower extremity. ACT 112: Negative or not required by law. Electronically signed by: Jerald Sanders M.D. 08/09/2023 8:23 AM Pulmonary Perfusion Imaging 08/10/23 06:26 NM pul perfusion CLINICAL HISTORY: SOB, elevated trops, Hx CA, CKD, R/O PE Technique: Perfusion imaging was performed in multiple projections after the intravenous injection of mCi of Tc-99m labeled macroaggregated albumin (MAA). Comparison: Comparison is made to CT chest 06/02/2023 FINDINGS/IMPRESSION: Heterogeneous perfusion is seen bilaterally without evidence of focal wedge-shaped defect. Low probability of pulmonary embolism. Focal uptake in the right anterior chest, likely outside the patient. ACT 112: Negative or not required by law. Electronically signed by: Chavo Arreola M.D. 08/10/2023 11:50 AM
--- NOTE | 2023-08-10 14:06 | Anesthesiology Consultation ---
Date of Service August 10, 2023 Assessment & Plan (1) Encounter for pre-operative examination: Chart Review Chart Review: Acceptable Risk for Surgery and Patient NOT seen in Pre Admission Testing Cardiology eval 08/09/23: ASSESSMENT/PLAN: 1. NSTEMI/elevated troponin: She did not present with acute coronary syndrome and has no symptoms concerning for angina. Elevated troponin could be due to transient LV systolic dysfunction, TIA, or other possibility. There is no urgent indication for cardiac catheterization and given active GI bleed and presentation of TIA, would not pursue cardiac catheterization at this time until other issues are improved/settled, unless emergently needed. Start beta- danie. Anticoagulation therapy is not necessary for her elevated troponins. 2. Cardiomyopathy: LV systolic function is mildly reduced but apical territory akinesis. Etiology uncertain. Cannot exclude underlying ischemic heart disease however she had no symptoms to suggest active ischemia. Cannot exclude chemotherapy is playing a role or stress-induced cardiomyopathy given involved territory. Given that she presented with TIA symptoms, could consider anticoagulation therapy for concern of thrombus, although overall LV systolic function is not severely reduced. Either way, with active GI bleeding, would not recommend further anticoagulation. This was discussed with Dr. Gaming of the primary hospitalist service and nursing staff. Start metoprolol succinate 25 mg daily. Can introduce other medical therapy as hospitalization progresses and will follow with repeat echo in the near future. 3. TIA: Her presenting symptom to the hospital seems consistent with TIA. Consider neurology evaluation. 4. CKD: As per primary hospitalist. 5. Coffee-ground emesis/GI bleed: Blood noted in her ostomy and coffee-ground emesis per nursing staff. GI consultation is pending. 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 7. Pancytopenia: Follows with hematology/oncology. Hemoglobin is low but seems stable from recent values. Consults Requested none History Surgery Operation Date: 08/10/23 19:15 Proposed Procedures p Esophagogastroduodenoscopy Dr. Alex Johnson Jr, MD Height/Weight Height: 4 ft 11 in Weight: 46.3 kg Allergies Allergy/AdvReac Type Severity Reaction Status Date / Time pineapple Allergy Severe anaphylaxis Verified 08/08/23 19:59 tomato Allergy Severe hives, Verified 08/08/23 19:59 throat tightness cantaloupe Allergy Intermediate Hives Verified 08/08/23 19:59 [place] And Derivatives Allergy Intermediate hives Verified 08/08/23 19:59 clarithromycin Allergy Intermediate hives Verified 08/08/23 19:59 lemon Allergy Intermediate Hives Verified 08/08/23 19:59 lemon oil Allergy Intermediate Hives Verified 08/08/23 19:59 [place] Allergy Intermediate Hives Verified 08/08/23 19:59 naproxen Allergy Intermediate hives Verified 08/08/23 19:59 orange Allergy Intermediate Hives Verified 08/08/23 19:59 orange (food color) Allergy Intermediate Hives Verified 08/08/23 19:59 orange flavor Allergy Intermediate Hives Verified 08/08/23 19:59 orange juice Allergy Intermediate Hives Verified 08/08/23 19:59 Penicillins Allergy Intermediate hives Verified 08/08/23 19:59 latex Allergy Mild rash Verified 08/08/23 19:59 Medications Home Medications Medication Instructions Recorded Confirmed Last Taken brimonidine 0.1 % eye drops 1 drp OPB TID 05/12/19 08/08/23 07/21/23 (Alphagan P) cholecalciferol (vitamin D3) 50 2,000 unit PO QAM 05/12/19 08/08/23 07/21/23 mcg (2,000 unit) capsule (Vitamin D3) latanoprost 0.005 % eye drops 1 drp OPB HS 05/12/19 08/08/23 07/21/23 (Xalatan) multivitamin 1 tab PO QAM 05/12/19 08/08/23 07/21/23 ondansetron HCl 8 mg tablet 8 mg PO Q8H PRN Nausea 12/18/20 08/08/23 04/03/23 prochlorperazine maleate 10 mg 10 mg PO Q6 PRN Nausea 12/18/20 08/08/23 04/03/23 tablet allopurinol 100 mg tablet 200 mg PO DAILY 02/17/23 08/08/23 07/22/23 potassium chloride 10 mEq 10 meq PO DAILY 02/17/23 08/08/23 07/21/23 capsule,extended release cefdinir 300 mg capsule 300 mg PO HS 3 weeks #21 caps 07/29/23 08/08/23 08/08/23 01:00 metronidazole 500 mg tablet 500 mg PO Q8 3 weeks #63 tabs 07/29/23 08/08/23 08/08/23 15:00 Active Medications Generic Name Dose Route Start Last Admin Trade Name Freq PRN Reason Stop Dose Admin Allopurinol 200 mg 08/09/23 09:00 08/10/23 08:20 Allopurinol 100 Mg Tab PO 09/08/23 08:59 Not Given DAILY JEFF Atorvastatin Calcium 40 mg 08/09/23 06:05 08/10/23 08:20 Atorvastatin 40 Mg Tab PO 09/08/23 06:04 Not Given QAM JEFF Ondansetron HCl 8 mg/ Dextrose 54 mls @ 216 mls/hr 08/09/23 08:50 08/09/23 10:08 IV 09/08/23 08:49 Infused Q4 PRN Infusion Nausea Pantoprazole Sodium 40 mg/ 100 mls @ 20 mls/hr 08/09/23 13:30 08/10/23 10:15 Dextrose IV 09/08/23 13:29 8 mg/hr Q5H JEFF 20 mls/hr Administration 8 MG/HR Metronidazole 500 mg in 100 mls @ 100 mls/hr 08/09/23 17:00 08/10/23 08:55 Flagyl IV 08/19/23 16:59 Infused Q8H JEFF Infusion Protocol Lactated Ringer's 1,000 mls @ 80 mls/hr 08/10/23 07:00 08/10/23 07:18 Lr IV 09/09/23 06:59 80 mls/hr .[id number] JEFF Administration Latanoprost 1 drops 08/08/23 23:19 08/09/23 21:12 Latanoprost 0.005% Op Soln 2.5 Ml Btl OPB 09/07/23 23:18 1 drops HS JEFF Administration Metoprolol Succinate 25 mg 08/09/23 16:30 08/10/23 08:20 Metoprolol Succ 25mg Ext Rel Tab PO 09/08/23 16:29 Not Given QAM JEFF Miscellaneous 1 each 08/09/23 00:00 08/10/23 07:11 Alphagan~Order Awaiting Action N/A 09/08/23 00:00 Not Given QS JEFF Vitamin D 2,000 units 08/09/23 09:00 08/10/23 08:20 Cholecalciferol 1,000 Units 25 Mcg Tab PO 09/08/23 08:59 Not Given QAM JEFF Past Medical History Medical History (Updated 08/10/23 @ 14:04 by Gerson Moreno MD) Encounter for pre-operative examination Hypomagnesemia 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, unproven Near syncope ABILIO (acute kidney injury) UTI (urinary tract infection) Acute kidney injury superimposed on CKD Borderline diabetes diet controlled Chronic ITP (idiopathic thrombocytopenia) platelet WNL on 06/01/20 labs Anemia chronic, baseline hgb 9-11 range per chart review 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, chemo currently Pancreatitis post-op (2014) Mucinous adenocarcinoma of appendix (~03/2013) 2012 Hyponatremia High cholesterol Cardiology: Defer cath for now given possible GI bleed (8) Intra-abdominal abscess: Plan: - Patient has a history of a appendiceal adenocarcinoma with a rectal stump abscess present since 05/2023. Drain in place in [facility] (present since 06/11/23); ostomy also in place Was following with a colorectal surgeon as outpatient. She is on Flagyl and a cephalosporin as an outpatient. Will continue these at this time as IV given npo status and inability to swallow without regurgitating. Past Family History Family History Other Diabetes Heart disease Hypertension Stroke Past Surgical History Surgical History Encounter for insertion of venous access port 2012 (subsequent removal) History of laparotomy USO + salipngectomy Hx laparoscopic cholecystectomy 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 Social History Smoking Status: Never smoker Do You Dip or Chew Tobacco: No Hx Alcohol Use: No Alcohol type: other alcohol intake frequency: other Hx Substance Use: No substance use type: does not use Physical Exam Vital Signs Last Vital Signs Temp 36.5 C 08/10/23 12:23 Pulse 94 H 08/10/23 12:23 Resp 16 08/10/23 12:23 BP 93/52 L 08/10/23 12:23 Pulse Ox 100 08/10/23 12:23 O2 Del Method Room Air 08/10/23 12:23 Testing Laboratory Results 08/10/23 12:42 08/10/23 04:04 PT 13.5 Seconds (9.0-12.0) H 08/08/23 18:10 INR 1.2 (0.9-1.1) H 08/08/23 18:10 APTT 30 Seconds (21-31) 08/08/23 18:10 Hemoglobin A1c 5.6 % (4.5-5.6) 08/09/23 05:01 Blood Type B Positive 08/10/23 10:21 Antibody Screen POSITIVE A 08/10/23 10:21 08/10/23 12:19 POC Glucose 96 Electrocardiogram Date: 08/09/23 HR 83. Normal sinus rhythm T wave abnormality, consider anterior ischemia Prolonged QT Abnormal ECG When compared with ECG of 08-AUG-2023 17:52, (unconfirmed) Nonspecific T wave abnormality now evident in Inferior leads T wave inversion now evident in Anterior leads Echocardiogram Date: 08/09/23 Normal LV size with mildly reduced systolic function. EF 45-50%. Large area of apical akinesis. No LVH. NO . Mild MR RVSP 34mmHg Other Testing Carotid dopplers 08/08/23: IMPRESSION: 1. There is no sonographic evidence of hemodynamically significant stenosis in the right or left carotid arterial system. 2. Antegrade flow is shown in the vertebral arteries.
[2023-08-10] MEDS ORDERED: ePHEDrine sulfate 50 MG/ML AMP ONE (15:35)
[2023-08-10] MEDS ORDERED: PHENYLEPHRINE 100MCG/ML 10ML SYR IV ONE (15:35)
[2023-08-10] MEDS ORDERED: PROPOFOL IV EMULSION 10 MG/ML 20 ML VIAL IV ONE (15:35)
[2023-08-10] MEDS ORDERED: LIDOCAINE 2% 2 ML VIAL/AMP(20MG/ML) INFIL ONE (15:35)
[2023-08-10] MEDS ORDERED: fentaNYL citrate PF 100 MCG/2 ML VIAL IV PRN (15:40)
[2023-08-10] MEDS ORDERED: ONDANSETRON INJ 2 MG/ML 2 ML VIAL IV PRN (15:40)
[2023-08-10] MEDS ORDERED: ePHEDrine sulfate 50 MG/ML AMP IV PRN (15:40)
[2023-08-10] MEDS ORDERED: ATROPINE SULFATE 0.1 MG/ML 10ML SYR IV PRN (15:40)
--- NOTE | 2023-08-10 16:20 | GI REPORT ---
Patient Name: Brooke Vasquez Procedure Date: 08/10/2023 3:54 PM Date of : 1960 Admit Type: Inpatient Age: 63 Gender: Female Attending MD: James Johnson MD, Procedure: Upper GI endoscopy Providers: James Johnson MD Referring MD: Alfonso Encarnacion Indications: Hematemesis Medicines: Propofol per Anesthesia Complications: No immediate complications. Estimated Blood Loss: Estimated blood loss: none. Procedure: Pre-Anesthesia Assessment: - Prior to the procedure, a History and Physical was performed, and patient medications and allergies were reviewed. The patient's tolerance of previous anesthesia was also reviewed. The risks and benefits of the procedure and the sedation options and risks were discussed with the patient. All questions were answered, and informed consent was obtained. Prior Anticoagulants: The patient has taken no anticoagulant or antiplatelet agents. ASA Grade Assessment: IV - A patient with severe systemic disease that is a constant threat to life. After reviewing the risks and benefits, the patient was deemed in satisfactory condition to undergo the procedure. After obtaining informed consent, the endoscope was passed under direct vision. Throughout the procedure, the patient's blood pressure, pulse, and oxygen saturations were monitored continuously. The Endoscope was introduced through the mouth, and advanced to the second part of duodenum. The upper GI endoscopy was accomplished without difficulty. The patient tolerated the procedure well. Findings: LA Grade D (one or more mucosal breaks involving at least 75% of esophageal circumference) esophagitis with no bleeding was found in the lower third of the esophagus. The stomach was normal. The examined duodenum was normal. Impression: - LA Grade D reflux esophagitis with no bleeding. - Normal stomach. - Normal examined duodenum. - No specimens collected. Recommendation: - [facility]. James Johnson MD 08/10/2023 4:19:24 PM Note Initiated On: 08/10/2023 3:54 PM Number of Addenda: 0 I attest to the content of the Intraoperative Record and orders documented therein, exceptions below {[id number]}
--- NOTE | 2023-08-10 16:45 | Anesthesiology Progress Note ---
Date of Service August 10, 2023 Anesthesia Post Procedure Vital Signs Vital Signs: Temp Pulse Pulse Resp BP BP Pulse Ox 08/10/23 16:35 91 H 21 91/55 L 100 08/10/23 16:27 36.5 C 93 H 17 92/52 L 100 08/10/23 15:20 36.8 C 94 H 18 93/52 L 96 08/10/23 12:23 36.5 C 94 H 16 93/52 L 100 08/10/23 08:00 96 H 08/10/23 07:22 37 C 98 H 18 92/58 L 94 08/10/23 06:00 94 H 25 H 100 08/10/23 05:00 93 H 16 100 08/10/23 04:00 36.7 C 08/10/23 04:00 96 H 6 L 100 08/10/23 04:00 94/53 L 08/10/23 03:00 94 H 7 L 100 08/10/23 02:00 93 H 14 100 08/10/23 01:00 89 17 08/10/23 00:00 89 08/10/23 00:00 36.7 C 08/10/23 00:00 93 H 18 08/10/23 00:00 98/53 L 08/09/23 23:00 94 H 17 08/09/23 22:00 93 H 18 08/09/23 21:12 92 H 22 08/09/23 21:12 95/55 L 08/09/23 21:00 88 16 08/09/23 20:00 87 08/09/23 20:00 36.7 C 08/09/23 20:00 88 18 08/09/23 19:00 85 17 08/09/23 16:51 36.5 C 87 16 95/53 L 99 O2 Del Method O2 Flow Rate 08/10/23 16:35 Nasal Cannula 2 08/10/23 16:27 Nasal Cannula 2 08/10/23 15:20 Room Air 08/10/23 12:23 Room Air 08/10/23 08:00 08/10/23 07:22 Room Air 08/10/23 06:00 08/10/23 05:00 08/10/23 04:00 08/10/23 04:00 08/10/23 04:00 08/10/23 03:00 08/10/23 02:00 08/10/23 01:00 08/10/23 00:00 08/10/23 00:00 08/10/23 00:00 08/10/23 00:00 08/09/23 23:00 08/09/23 22:00 08/09/23 21:12 08/09/23 21:12 08/09/23 21:00 08/09/23 20:00 08/09/23 20:00 08/09/23 20:00 08/09/23 19:00 08/09/23 16:51 Room Air Pain Intensity Back: Pain Intensity: 3 Transfer of Care Handoff Completed per policy Notes Mental Status: alert / awake / arousable Patient Amnestic to Procedure: Yes Nausea / Vomiting: adequately controlled Pain: adequately controlled Airway Patency, RR, SpO2: stable & adequate BP & HR: stable & adequate Hydration State: stable & adequate Anesthetic Complications: no major complications apparent and Pt Satisfied with anesthetic care
--- NOTE | 2023-08-10 16:49 | Billing Data ---
Date of Service August 10, 2023 Coding Level of Care Code 42780 SUB INP/OBS CARE MIN
[2023-08-10] MEDS: CEFEPIME 1,000 MG in SYRINGE 0 ML IV SCH (17:47)
[2023-08-10 17:51] LABS: Hematocrit (blood only) 23.3 % (37.0-47.0); Hemoglobin 7.3 g/dl (12.0-16.0)
[2023-08-10] MEDS: LATANOPROST 0.005% OP SOLN 2.5 ML BTL OPB SCH (20:15)
[2023-08-10 22:06] LABS: Hematocrit (blood only) 23.1 % (37.0-47.0); Hemoglobin 7.4 g/dl (12.0-16.0)
--- NOTE | 2023-08-10 22:41 | Electrocardiogram Report ---
Test Reason : Blood Pressure : / mmHG Vent. Rate : 096 BPM Atrial Rate : 096 BPM P-R Int : 162 ms QRS Dur : 062 ms QT Int : 360 ms P-R-T Axes : 083 -18 076 degrees QTc Int : 454 ms Normal sinus rhythm Normal ECG When compared with ECG of 29-MAY-2023 20:10, No significant change was found Confirmed by Marcio Flores ([id number]) on 08/10/2023 10:40:48 PM Referred By: REFERRED SELF Confirmed By:Marcio Flores
[2023-08-10] MEDS ORDERED: LACTATED RINGER'S 250 ML IV ONE (23:03)
[2023-08-11] MEDS: metroNIDAZOLE 500 MG/100 ML BAG IV SCH ×3 (02:44→16:09)
[2023-08-11] MEDS ORDERED: ALBUMIN 5% 250 ML IV ONE (04:04)
[2023-08-11] MEDS: ALPHAGAN~ORDER AWAITING ACTION SCH ×3 (04:04→16:08)
[2023-08-11] MEDS: PANTOprazole 40 MG in DEXTROSE 5% MINI-B 100 ML IV SCH ×5 (04:14→21:19)
[2023-08-11] MEDS: LACTATED RINGER'S 1,000 ML IV SCH (04:49)
[2023-08-11] MEDS: CEFEPIME 1,000 MG in SYRINGE 0 ML IV SCH ×2 (05:38→16:12)
--- NOTE | 2023-08-11 06:02 | Electrocardiogram Report ---
Test Reason : Blood Pressure : / mmHG Vent. Rate : 083 BPM Atrial Rate : 083 BPM P-R Int : 164 ms QRS Dur : 064 ms QT Int : 422 ms P-R-T Axes : 068 -09 -41 degrees QTc Int : 495 ms Normal sinus rhythm T wave abnormality, consider anterior ischemia T wave abnormality, consider inferior ischemia Prolonged QT Abnormal ECG When compared with ECG of 08-AUG-2023 17:52, T wave inversion now evident in Inferior leads T wave inversion now evident in Anterior leads QT has lengthened Confirmed by Marcio Flores ([id number]) on 08/11/2023 6:01:47 AM Referred By: REFERRED SELF Confirmed By:Marcio Flores
[2023-08-11 06:36] LABS: Hematocrit (blood only) 19.5 % (37.0-47.0); Hemoglobin 6.2 g/dl (12.0-16.0); Mean Corpuscular Hemoglobin 30.2 pg (25.0-34.0); Mean Corpuscular Hgb Conc 31.8 g/dL (32.0-36.0); Mean Corpuscular Volume 95.1 fL (80.0-100.0); Mean Platelet Volume 11.9 fL (9.4-12.4); Platelet Count 74 K/uL (130-400); RDW Coefficient of Variation 17.7 % (11.5-14.5); RDW Standard Deviation 61.8 fL (36.4-46.3); Red Blood Count 2.05 M/uL (4.20-5.40); White Blood Count 4.04 K/ul (4.8-10.8)
[2023-08-11 07:06] LABS: BUN Creatinine Ratio 10.7 (10-20); Calcium 7.5 mg/dl (8.6-10.3); Creatinine Clr Calc Pharmacy 25.8 ml/min; Est GFR (African American) 37.1 ml/min; Potassium 3.7 mmol/L (3.5-5.1)
[2023-08-11 07:12] LABS: Basophils # (auto) 0.02 K/uL (0.00-0.20); Basophils % (auto) 0.5 %; Eosinophils # (auto) 0.17 K/uL (0.00-0.50); Eosinophils % (auto) 4.2 %; Immature Granulocytes # (auto) 0.01 K/uL (0.01-0.20); Immature Granulocytes % (auto) 0.2 %; Lymphocytes % (auto) 12.4 %; Monocytes # (auto) 0.27 K/uL (0.11-0.59); Monocytes % (auto) 6.7 %; Neutrophils # (auto) 3.07 K/uL (1.40-6.50); Polychromasia 1+
[2023-08-11] MEDS ORDERED: SODIUM CHLORIDE 0.9% 250 ML IV PRN (07:23)
[2023-08-11] MEDS: allopurinoL 100 MG TAB PO SCH (08:41)
[2023-08-11] MEDS: CHOLECALCIFEROL 1,000 UNITS 25 MCG TAB PO SCH (08:41)
[2023-08-11] MEDS: ATORVASTATIN 40 MG TAB PO SCH (08:41)
[2023-08-11] MEDS: METOPROLOL SUCC 25MG EXT REL TAB PO SCH (08:42)
--- NOTE | 2023-08-11 12:01 | Hospitalist Progress Note ---
Date of Service August 11, 2023 Assessment & Plan (1) Anemia: Plan: - Anemia of chronic disease secondary to CKD vs acute upper GI bleed. Hgb 8.9 on arrival. Decreased to 7.7. Patient remained asymptomatic HH Q4H -- Hgb increased to 8.8 yesterday - Hgb this morning 6.2 Type and Screen done yesterday. Will order 2 units of PRBC to transfuse. Blood consent taken. Repeat HH 2 hours after transfusion -- Hgb pending - Rectal abscess drain collecting bloody fluids, which may give explanation for worsening anemia. However, retroperitoneal bleed cannot be fully r/o. Will order abdominopelvic CT to evaluate. (2) Coffee ground emesis: Plan: - Patient with coffee ground emesis on 08/09/23 Has not recurred; no longer feeling nauseous; denies epigastric pain - Diet: clear liquid diet (DM-II); progress as tolerated - On Protonix drip - Consulted gastroenterology. EGD (08/10/23) -- LA Grade D (one or more mucosal breaks involving at least 75% of esophageal circumference) esophagitis with no bleeding was found in the lower 1/3 of the esophagus; normal stomach and duodenum - Would benefit from PPI therapy after discharge (3) Cardiomyopathy: Plan: - Large apical akinesis found in TTE as well as mildly reduced LV function (EF 45-50) -- uncertain cause - Cardiology consulted: cannot r/o ischemic cause, but catheterization is not favored right now given possible GI bleed also cannot r/o chemotherapy is playing a role or stress-induced cardiomyopathy Would benefit from anticoagulation, but currently will remain on hold due to possible GI bleed. > Will re-assess after EGD is done - Metoprolol succ 25mg added, but not given due to soft BPs Will change parameters so it is held when SBP is <90. - Repeat TTE tomorrow Consider neurology consult after obtaining results (4) Elevated troponin: Plan: - Troponins in ED elevated at 66 and following increasing trend (last value 664) EKG without ST segment or T wave abnormalities, NSR in the 90s Patient wo symptoms of chest pain or left arm/jaw pain or numbness Gave ASA, Atorvastatin 40mg, and Heparin drip Hold on beta blockers due to low BP - V/Q scan to r/o PE as a cause -- Negative CTA not done due to hx of CKD - Cardiology consult placed. No ACS; increase in troponins may be due to transient LV dysfunction, TIA, or other cause Defer cath for now given possible GI bleed Start beta danie -- change hold parameter to SBP < 90 (5) Stroke-like symptoms: Plan: - Patient with strokelike symptoms for approximately 10 to 15 minutes (i.e. slurring of speech and word finding difficulty) Symptoms not present in today's evaluation - Noncontrast CT of the brain was negative in the ER - MRI wo contrast negative for acute changes - Bilateral carotid artery duplex without significant stenosis to obstruct flow - TTE: Mildly reduced EF to 45-50% Large area of apical akinesis Technically difficult study - ASA given in ED. DC after onset of coffee ground emesis (6) CKD (chronic kidney disease): Plan: - Stable CKD stage III - No CTAs were ordered secondary to this (7) Diabetes: Plan: - Stable. - Will order Accu-Cheks will be called if less than 80 or greater than 180. 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 Drain in place in LLQ (present since 06/11/23); ostomy also in place Was following with a colorectal surgeon as outpatient. She is on Flagyl and a cephalosporin as an outpatient. Will continue these at this time as IV given npo status and inability to swallow without regurgitating. - Consulted wound care for management of patient's abscess drain and colostomy (9) Thrombocytopenia: Plan: - Stable at 97,000 on admission. 74,000 today - Monitor CBC (10) Hypokalemia: Plan: Mild at 3.3 on admission. Replaced 3.7 this morning (11) Hypomagnesemia: Plan: - 1.5 on admission. Replaced. Corrected to 1.8 Plan Admit to PCU/Telemetry Diet: Clear liquid (DM-II) Lines: rectal drain, colostomy, medport (right upper chest) DVT ppx: SCDs Code: Full Admission and Anticipated Discharge Date Admission Date: August 10, 2023 Supervising Physician Co-Signing Physician Notes I personally examined the patient and verified all amin points of history and exam, discussed case, and agree with decision making with Dr Sweet Feels okay no complaints. No further vomiting. No blood in her ostomy bag. There is some red bloody drainage in her IR placed pelvic drainshe notes the blood is new there was a lot of drainage last night but she does not recall it being bloody. vitals noted nad heent nc at mmm breathing unlabored no accessory muscles good effort skin no rashes no pallor or icterus neuro no focal deficits. Abdomen soft nondistended nontender. Ostomy with thin brown output, IR placed pelvic drain with bloody output probably about 60 mL at this time. Anemiainitially thought to be acute blood loss due to coffee-ground emesis/blood in the ostomyEGD did show some esophagitis, but certainly would not explain today's blood loss especially given that she has had no further bloody ostomy output and no further emesis. I do harbor concerns that her drain may be draining bloodthat her intra-abdominal abscess may be hemorrhagic, versus something more called like a retroperitoneal bleed. Stable status post 2 unitsfollow hemoglobin and follow vitals, repeat CT abdomen pelvis to look for fluid/blood collection. Elevated troponin/new dx dilated cardiomyopathy - Did not present with ACS symptoms. large area of apical akinesis. more than likely stress induced given pattern. can't entirely r/o ischemic but risk/benefit for LHC more nebulous. beta danie and afterload reduction difficult to dose due to vitals. Cardiology to repeat echo. TIA - Presented to ED with TIA symptoms. Negative MRI for acute changes. biggest concern would be cardioembolic given new dilated cardiomyopathy, hopefully EF improves; at this point antiplatelet or anticoagulant are quite contraindicated due to ongoing blood loss anemia. Appendicial ca with stump abscess - has been on chemo. Drain placed May 2023. follows with general surgery. continue abx SCD Subjective Patient is a 63 y/o female with PMHx of Appendiceal adenocarcinoma with rectal abscess and rectal tube drainage who arrived to the ED due to new onset slurring of speech and word finding difficulty plus what she described as a "funny feeling in her head". She also refers she has some left leg weakness that began around 07/28/23 or 07/29/23. She refers feeling well. She has eaten broths since her EGD yesterday and has tolerated it. Denies nausea, epigastric or abdominal pain, chest pain, SOB, lightheadedness, dizziness, or any other symptom. Review of Systems Review of Systems: As per HPI. Physical Exam Physical Exam: General: AAOx3, afebrile, NAD HEENT: Normocephalic, PERRLA, EOM intact HEART: RRR, no r/m/g LUNGS: CTA, normal respiratory effort, no respiratory distress CHEST: medport noted in right upper chest ABDOMEN: Soft, nontender, nondistended, colostomy in place, drain noted in LLQ for rectal abscess and its collecting bag contains bloody fluid. EXTREMITIES: no swelling or calf tenderness in bilateral LE Results & Data Results & Data Vital Signs (Past 12 Hours) Vital Signs Temp Pulse Pulse Resp BP BP Pulse Ox 08/11/23 11:16 36.7 C 88 16 106/57 L 08/11/23 11:00 36.5 C 84 17 94/58 L 100 08/11/23 10:30 36.4 C L 82 18 97/56 L 100 08/11/23 09:46 36.6 C 84 17 96/58 L 100 08/11/23 09:31 36.6 C 84 17 99/61 L 100 08/11/23 09:03 36.6 C 84 18 90/49 L 99 08/11/23 08:23 86 08/11/23 07:43 36.7 C 98 H 18 93/52 L 98 08/11/23 05:42 90/47 L 08/11/23 03:35 36.8 C 88 18 79/40 L 100 08/11/23 00:15 91/50 L 08/11/23 00:00 98 H O2 Del Method 08/11/23 11:16 08/11/23 11:00 Room Air 08/11/23 10:30 08/11/23 09:46 08/11/23 09:31 08/11/23 09:03 08/11/23 08:23 08/11/23 07:43 Room Air 08/11/23 05:42 08/11/23 03:35 Room Air 08/11/23 00:15 08/11/23 00:00 Resident Activity Tracking Resident Involvement: Resident Care Provided Care Provided: Adult Hospital Medicine (6) CKD (chronic kidney disease) Chronic kidney disease stage: stage 3 (moderate) Chronic kidney disease stage 3 subtype: stage 3b (GFR 30-44) Qualified Code(s): N18.32 - Chronic kidney disease, stage 3b
--- NOTE | 2023-08-11 14:41 | Gastroenterology Progress Note ---
Date of Service August 11, 2023 Assessment & Plan (1) Coffee ground emesis: Plan: Seems to be stable from a GI standpoint. No further recs right now Admission and Anticipated Discharge Date Admission Date: August 10, 2023 Subjective H/H dropped significantly but she says she hasn't passed any blood through her stoma in over a day. She is feeling well Physical Exam Physical Exam: she looks well Constitutional: WD/WN, vitals as above Results & Data Vital Signs (Past 12 Hours) Vital Signs Temp Pulse Pulse Resp BP BP Pulse Ox 08/11/23 13:57 36.6 C 77 16 94/55 L 08/11/23 13:40 36.6 C 85 18 94/58 L 08/11/23 11:58 36.5 C 81 18 97/59 L 08/11/23 11:16 36.7 C 88 16 106/57 L 08/11/23 11:00 36.5 C 84 17 94/58 L 100 08/11/23 10:30 36.4 C L 82 18 97/56 L 100 08/11/23 09:46 36.6 C 84 17 96/58 L 100 08/11/23 09:31 36.6 C 84 17 99/61 L 100 08/11/23 09:03 36.6 C 84 18 90/49 L 99 08/11/23 08:23 86 08/11/23 07:43 36.7 C 98 H 18 93/52 L 98 08/11/23 05:42 90/47 L 08/11/23 03:35 36.8 C 88 18 79/40 L 100 O2 Del Method 08/11/23 13:57 08/11/23 13:40 08/11/23 11:58 08/11/23 11:16 08/11/23 11:00 Room Air 08/11/23 10:30 08/11/23 09:46 08/11/23 09:31 08/11/23 09:03 08/11/23 08:23 08/11/23 07:43 Room Air 08/11/23 05:42 08/11/23 03:35 Room Air
--- NOTE | 2023-08-11 15:46 | Cardiology Progress Note ---
Date of Service August 11, 2023 Assessment & Plan (1) Cardiomyopathy: (2) Elevated troponin: (3) TIA (transient ischemic attack): (4) CKD (chronic kidney disease): (5) Coffee ground emesis: (6) GIB (gastrointestinal bleeding): Plan ASSESSMENT/PLAN: 1. NSTEMI/elevated troponin: She did not present with acute coronary syndrome and has no symptoms concerning for angina. Elevated troponin could be due to transient LV systolic dysfunction, TIA, or other possibility. There is no urgent indication for cardiac catheterization and given active GI bleed and presentation of TIA, would not pursue cardiac catheterization at this time until other issues are improved/settled, unless emergently needed. Metoprolol succinate 25 mg once daily initiated but she has not received a dose due to mild hypotension. She states that her blood pressure is chronically low and she is asymptomatic. Hold parameters were changed. 2. Cardiomyopathy: LV systolic function is mildly reduced but apical territory akinesis. Etiology uncertain. Cannot exclude underlying ischemic heart disease however she had no symptoms to suggest active ischemia. Cannot exclude chemotherapy is playing a role or stress-induced cardiomyopathy given involved territory. Given that she presented with TIA symptoms, could consider anticoagulation therapy for concern of thrombus, although overall LV systolic function is not severely reduced. Either way, with active GI bleeding, would not recommend further anticoagulation. Metoprolol succinate 25 mg once daily as above. Limited echo ordered today and is pending. Medical therapy as tolerated. Will consider VIRAJ inhibitor/Arni/ARB if LV systolic function worsens and blood pressure can tolerate. 3. TIA: Her presenting symptom to the hospital seems consistent with TIA. Consider neurology evaluation. 4. CKD: As per primary hospitalist. 5. Coffee-ground emesis/GI bleed: Blood noted in her ostomy and coffee-ground emesis per nursing staff. EGD on 08/10/2023 reported LA grade D reflux esophagitis but no active bleeding. Anemia as per primary hospitalist service. Has received PRBC x 2. 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 7. Pancytopenia: Follows with hematology/oncology. Chronic anemia. 8. Disposition: Cardiology will continue to follow. Patient care to communicated with Dr. Encarnacion. Admission and Anticipated Discharge Date Admission Date: August 10, 2023 Subjective She was seen earlier this afternoon. She denies chest pain, shortness of breath, orthopnea, syncope, near syncope, palpitations. She has not had any further GI bleeding that she has seen. She was in the midst of PRBC transfusion. Physical Exam Physical Exam: Gen.: No acute distress. Alert and oriented. HEENT: Anicteric sclera. Neck: No JVD. Cardiac: No ventricular heave. Regular. Normal S1-S2. 2/6 systolic murmur. No rubs or gallops. Pulmonary: Clear to auscultation bilaterally without wheezes, rales, or rhonchi. Abdomen: Soft, nontender, nondistended, with normoactive bowel sounds. No bruits noted. Ostomy. Extremities: 2+ radial pulses bilaterally. 2+ posterior tibialis pulses bilaterally. No pitting edema. Nonpitting edema of the left lower extremity. No cyanosis. Psychiatric: Affect appears appropriate. Results & Data Vital Signs (Past 12 Hours) Vital Signs Temp Pulse Pulse Resp BP BP Pulse Ox 08/11/23 15:04 36.5 C 77 16 97/60 L 08/11/23 13:57 36.6 C 77 16 94/55 L 08/11/23 13:40 36.6 C 85 18 94/58 L 08/11/23 11:58 36.5 C 81 18 97/59 L 08/11/23 11:16 36.7 C 88 16 106/57 L 08/11/23 11:00 36.5 C 84 17 94/58 L 100 08/11/23 10:30 36.4 C L 82 18 97/56 L 100 08/11/23 09:46 36.6 C 84 17 96/58 L 100 08/11/23 09:31 36.6 C 84 17 99/61 L 100 08/11/23 09:03 36.6 C 84 18 90/49 L 99 08/11/23 08:23 86 08/11/23 07:43 36.7 C 98 H 18 93/52 L 98 08/11/23 05:42 90/47 L O2 Del Method 08/11/23 15:04 08/11/23 13:57 08/11/23 13:40 08/11/23 11:58 08/11/23 11:16 08/11/23 11:00 Room Air 08/11/23 10:30 08/11/23 09:46 08/11/23 09:31 12/19/23 09:03 08/11/23 08:23 08/11/23 07:43 Room Air 08/11/23 05:42 Intake & Output 08/09/23 08/10/23 08/11/23 08/12/23 06:59 06:59 06:59 06:59 Intake Total 100 / 100 2901.000 / 2901.000 3235.334 / 3235.334 1115.333 / 1115.333 Output Total 200 / 200 300 / 300 201 / 201 150 / 150 Balance -100 / -100 2601.000 / 2601.000 3034.334 / 3034.334 965.333 / 965.333 Weight 102 lb 1.184 oz 118 lb 9.6 oz Laboratory Results Laboratory Results - last 24 hr 08/10/23 08/10/23 08/10/23 10:21 10:21 17:19 WBC RBC Hgb 7.3 L Hct 23.3 L MCV MCH MCHC RDW Std Deviation RDW Coeff of Veda Plt Count MPV Immature Gran % (Auto) Neut % (Auto) Lymph % (Auto) [place] % (Auto) Eos % (Auto) Baso % (Auto) Neut # (Auto) Lymph # (Auto) [place] # (Auto) Eos # (Auto) Baso # (Auto) Immature Gran # (Auto) Polychromasia Sodium Potassium Chloride Carbon Dioxide Anion Gap BUN Creatinine Est Cr Clr Drug Dosing Est GFR ( Amer) Est GFR (Non-Af Amer) BUN/Creatinine Ratio Glucose POC Glucose Calcium Blood Type B Positive Antibody Screen POSITIVE A Antibody Identification Anti-E Anti-K Antibody ID Comment Elution Direct Antiglob Test Positive A LEDA (IgG-AHG) Weak Pos A LEDA, Polyspecific Weak Pos A LEDA C3b, C3d 5 Min Neg Crossmatch See Detail 08/10/23 08/10/23 08/11/23 19:55 21:29 06:02 WBC 4.04 L RBC 2.05 L Hgb 7.4 L 6.2 L* Hct 23.1 L 19.5 L* MCV 95.1 MCH 30.2 MCHC 31.8 L RDW Std Deviation 61.8 H RDW Coeff of Veda 17.7 H Plt Count 74 L MPV 11.9 Immature Gran % (Auto) 0.2 Neut % (Auto) 76.0 Lymph % (Auto) 12.4 [place] % (Auto) 6.7 Eos % (Auto) 4.2 Baso % (Auto) 0.5 Neut # (Auto) 3.07 Lymph # (Auto) 0.50 L [place] # (Auto) 0.27 Eos # (Auto) 0.17 Baso # (Auto) 0.02 Immature Gran # (Auto) 0.01 Polychromasia 1+ Sodium 139 Potassium 3.7 Chloride 117 H Carbon Dioxide 17 L Anion Gap 5 BUN 18 Creatinine 1.69 H Est Cr Clr Drug Dosing 25.8 Est GFR ( Amer) 37.1 Est GFR (Non-Af Amer) 32.0 BUN/Creatinine Ratio 10.7 Glucose 96 POC Glucose 102 H Calcium 7.5 L Blood Type Antibody Screen Antibody Identification Antibody ID Comment Elution Direct Antiglob Test LEDA (IgG-AHG) LEDA, Polyspecific LEDA C3b, C3d 5 Min Crossmatch 08/11/23 08/11/23 07:39 11:19 WBC RBC Hgb Hct MCV MCH MCHC RDW Std Deviation RDW Coeff of Veda Plt Count MPV Immature Gran % (Auto) Neut % (Auto) Lymph % (Auto) [place] % (Auto) Eos % (Auto) Baso % (Auto) Neut # (Auto) Lymph # (Auto) [place] # (Auto) Eos # (Auto) Baso # (Auto) Immature Gran # (Auto) Polychromasia Sodium Potassium Chloride Carbon Dioxide Anion Gap BUN Creatinine Est Cr Clr Drug Dosing Est GFR ( Amer) Est GFR (Non-Af Amer) BUN/Creatinine Ratio Glucose POC Glucose 96 101 H Calcium Blood Type Antibody Screen Antibody Identification Antibody ID Comment Elution Direct Antiglob Test LEDA (IgG-AHG) LEDA, Polyspecific LEDA C3b, C3d 5 Min Crossmatch Diagnostic Findings Telemetry personally reviewed: Sinus rhythm. No arrhythmia. Labs from 08/11/2023 notable for normal potassium, abnormal but stable renal function, hemoglobin that dropped to 6.2 and after transfusion improved to 10.8, thrombocytopenia. GI progress note reviewed. ECG personally reviewed 08/11/2023 at 6:18 AM: Sinus rhythm 84 bpm. Anterolateral T wave abnormality. Prolonged QT. Compared to 08/09/2023 ECG at 1645, inferior T wave inversion has improved. Medications Administered Current Inpatient Medications Allopurinol (Allopurinol 100 Mg Tab) 200 mg PO DAILY JEFF Stop: 09/08/23 08:59 Last Admin: 08/11/23 08:41 Dose: 200 mg Atorvastatin Calcium (Atorvastatin 40 Mg Tab) 40 mg PO QAM JEFF Stop: 09/08/23 06:04 Last Admin: 08/11/23 08:41 Dose: 40 mg Dextrose (Dextrose 50% 50 Ml Syringe) 25 - 50 ml IV UD PRN; Protocol PRN Reason: Hypoglycemia Protocol Stop: 09/07/23 23:18 Glucagon (Glucagon For Inj 1 Mg Vial) 1 mg SQ UD PRN; Protocol PRN Reason: Hypoglycemia Protocol Stop: 09/07/23 23:18 Glucose (Glucose 10 Tab/Tube) 4 - 8 tab PO UD PRN; Protocol PRN Reason: Hypoglycemia Treatment Stop: 09/07/23 23:18 Glucose (Glucose 40% Gel 15 Gm Tube) 15 - 30 gm PO UD PRN; Protocol PRN Reason: Hypoglycemia Protocol Stop: 09/07/23 23:18 Heparin Sodium (Porcine) (Heparin 100 Unit/Ml 5ml Flush) 5 ml FLUSH PRN PRN PRN Reason: Flush Stop: 09/07/23 22:19 Ondansetron HCl 8 mg/ Dextrose 54 mls @ 216 mls/hr IV Q4 PRN PRN Reason: Nausea Stop: 09/08/23 08:49 Last Infusion: 08/09/23 10:08 Dose: Infused Pantoprazole Sodium 40 mg/ (Dextrose) 100 mls @ 20 mls/hr IV Q5H [facility] Stop: 09/08/23 13:29 Last Admin: 08/11/23 10:28 Dose: 8 mg/hr, 20 mls/hr Metronidazole (Flagyl) 500 mg in 100 mls @ 100 mls/hr IV Q8H JEFF; Protocol Stop: 08/19/23 16:59 Last Infusion: 08/11/23 10:27 Dose: Infused Lactated Ringer's (Lr) 1,000 mls @ 80 mls/hr IV .[id number] [facility] Stop: 09/09/23 06:59 Last Admin: 08/11/23 04:49 Dose: 80 mls/hr Cefepime HCl 1,000 mg/ Syringe 10 mls @ 5 mls/min IV Q12H JEFF; Protocol Stop: 08/20/23 16:59 Last Admin: 08/11/23 05:38 Dose: 5 mls/min Sodium Chloride (Nss) 250 mls @ 15 mls/hr IV .[id number] PRN PRN Reason: For Transfusion Duration Stop: 08/11/23 17:24 Latanoprost (Latanoprost 0.005% Op Soln 2.5 Ml Btl) 1 drops OPB HS [facility] Stop: 09/07/23 23:18 Last Admin: 08/10/23 20:15 Dose: 1 drops Metoprolol Succinate (Metoprolol Succ 25mg Ext Rel Tab) 25 mg PO QAM [facility] Stop: 09/08/23 16:29 Last Admin: 08/11/23 08:42 Dose: Not Given Miscellaneous (Alphagan~Order Awaiting Action) 1 each N/A QS [facility] Stop: 09/08/23 00:00 Last Admin: 08/11/23 08:42 Dose: Not Given Miscellaneous (Carbohydrates For Hypoglycemia ) 15 - 30 gm PO UD PRN PRN Reason: Hypoglycemia Protocol Stop: 09/07/23 23:18 Vitamin D (Cholecalciferol 1,000 Units 25 Mcg Tab) 2,000 units PO QAM [facility] Stop: 09/08/23 08:59 Last Admin: 08/11/23 08:41 Dose: 2,000 units PG Care Time/CCT Total # of Minutes Spent Total Time Spent with Patient: Total time spent is greater than 50% in coordination of care (as documented) at patient's floor/unit and/or counseling patient: Coding Level of Care Code 16691 SUB INP/OBS CARE 3/50MIN Diagnoses Cardiomyopathy I42.9 Elevated troponin R79.89 TIA (transient ischemic attack) G45.9 Stage 3b chronic kidney disease N18.32 Chronic kidney disease stage: stage 3 (moderate) Chronic kidney disease stage 3 subtype: stage 3b (GFR 30-44) Coffee ground emesis K92.0 GIB (gastrointestinal bleeding) K92.2 GI bleed type/associated pathology: unspecified gastrointestinal hemorrhage type (4) CKD (chronic kidney disease) Chronic kidney disease stage: stage 3 (moderate) Chronic kidney disease stage 3 subtype: stage 3b (GFR 30-44) Qualified Code(s): N18.32 - Chronic kidney disease, stage 3b (6) GIB (gastrointestinal bleeding) GI bleed type/associated pathology: unspecified gastrointestinal hemorrhage type Qualified Code(s): K92.2 - Gastrointestinal hemorrhage, unspecified
--- NOTE | 2023-08-11 17:44 | Billing Data ---
Date of Service August 11, 2023 Coding Level of Care Code 19067 SUB INP/OBS CARE MIN
[2023-08-11 18:58] LABS: Hematocrit (blood only) 31.8 % (37.0-47.0); Hemoglobin 10.8 g/dl (12.0-16.0)
[2023-08-11] MEDS: LATANOPROST 0.005% OP SOLN 2.5 ML BTL OPB SCH (21:19)
[2023-08-12] MEDS: metroNIDAZOLE 500 MG/100 ML BAG IV SCH ×3 (00:42→16:24)
[2023-08-12] MEDS: LACTATED RINGER'S 1,000 ML IV SCH ×2 (00:42→15:19)
[2023-08-12] MEDS: PANTOprazole 40 MG in DEXTROSE 5% MINI-B 100 ML IV SCH ×3 (00:43→08:57)
[2023-08-12] MEDS: ALPHAGAN~ORDER AWAITING ACTION SCH ×3 (03:10→15:21)
--- NOTE | 2023-08-12 03:36 | CT Scan Report ---
Exam(s): CT ABDOMEN + PELVIS Oral - High Density Amt: BARIUM EXAM: CT Abdomen and Pelvis Without Intravenous Contrast CLINICAL HISTORY: Reason for exam: acute blood loss anemia - ?retroperitoneal/intrabd. TECHNIQUE: Axial computed tomography images of the abdomen and pelvis without intravenous contrast. CTDI is 14.25 mGy and DLP is 679.82 mGy-cm. Automated exposure control was utilized for the study. A dose lowering technique was utilized adhering to the principles of ALARA. CONTRAST: Patient received BARIUM of Oral - High Density contrast COMPARISON: 07/28/2023. FINDINGS: Limitations: Exam is limited due to absence of intravenous contrast. Lung bases: Bilateral lower lobe consolidation compatible with pneumonia. Pleural space: Bilateral mild pleural effusions with. Heart: Mild cardiomegaly with coronary artery calcifications be. Mediastinum: Mild hiatal hernia. Contrast within the stomach with reflux into the distal esophagus. ABDOMEN: Liver: Multiple low-attenuation lesions within the liver, some reveal peripheral and internal calcifications which may be associated with treated metastatic disease, calcific metastatic disease or sequela of infectious process. Additional confluent low-attenuation lesion within the liver, largest seen within the posterior aspect of the right liver lobe measuring 4.8 cm concerning for neoplasm. Gallbladder and bile ducts: Status post cholecystectomy. No ductal dilation. Pancreas: Unremarkable. No ductal dilation. Spleen: Partially calcified densities within the posterior aspect of the spleen, largest measuring 4.0 cm. Indeterminate lesion within the posterior aspect of the spleen measuring 2.5 cm. Adrenals: Unremarkable. No mass. Kidneys and ureters: There is mild distention of the bilateral renal pelvises suggestive of bilateral pelviectasis. Bilateral ureters are not well visualized. Stomach and bowel: Diffuse thickening of the wall through the stoma concerning for gastritis. There are multiple loops of small bowel with mild distention and thickening of the wall which may indicate enteritis. Cannot exclude ileus or partial obstruction. There are several unopacified small bowel loops at the level of the pelvis, difficult to distinguish from surrounding structures. There is a right-sided colostomy in place. PELVIS: Appendix: No findings to suggest acute appendicitis. Bladder: Unremarkable. No stones. Reproductive: Unremarkable as visualized. ABDOMEN and PELVIS: Intraperitoneal space: Unremarkable. No free air. No significant fluid collection. Bones/joints: Diffuse osteopenia with extensive hypertrophic changes of the bilateral facets. No acute fracture. No dislocation. Soft tissues: Unremarkable. Vasculature: Mild atherosclerotic disease of aorta. Lymph nodes: Unremarkable. No enlarged lymph nodes. Tubes, lines and devices: Redemonstrated is hypoattenuated collection within the left psoas muscle with a percutaneous left anterior drain in place and currently measuring approximately 6.7 x 5.2 cm. Trace ascites within the upper abdomen. IMPRESSION: 1. Essentially stable examination with unchanged multiple calcified lesions within the liver, spleen and near the posterior spleen concerning for metastatic disease. 2. There is mild distention of bilateral renal pelvises, with bilateral ureters suboptimally seen which appears slightly progressed in the interval, etiology indeterminate. 3. There is left psoas fluid collection with a drainage catheter in place, overall no significant change in the interval. 4. Possible gastritis with enteritis with underlying ileus or partial small bowel obstruction excluded. Correlation with 5. Difficult to distinguish structures due to unopacified loops of bowel. 6. Trace ascites within the upper abdomen. Electronically signed by: Angeles Plunkett MD 08/12/23 03:34 AM
[2023-08-12] MEDS: CEFEPIME 1,000 MG in SYRINGE 0 ML IV SCH ×2 (06:26→16:24)
[2023-08-12 08:19] LABS: Basophils # (auto) 0.01 K/uL (0.00-0.20); Basophils % (auto) 0.2 %; Eosinophils # (auto) 0.25 K/uL (0.00-0.50); Eosinophils % (auto) 4.4 %; Hematocrit (blood only) 31.5 % (37.0-47.0); Hemoglobin 10.7 g/dl (12.0-16.0); Immature Granulocytes # (auto) 0.03 K/uL (0.01-0.20); Immature Granulocytes % (auto) 0.5 %; Lymphocytes # (auto) 0.71 K/uL (1.20-3.40); Lymphocytes % (auto) 12.4 %; Mean Corpuscular Hemoglobin 30.7 pg (25.0-34.0); Mean Corpuscular Volume 90.5 fL (80.0-100.0); Mean Platelet Volume 11.6 fL (9.4-12.4); Monocytes # (auto) 0.43 K/uL (0.11-0.59); Monocytes % (auto) 7.5 %; Neutrophils # (auto) 4.28 K/uL (1.40-6.50); Platelet Count 76 K/uL (130-400); RDW Coefficient of Variation 17.2 % (11.5-14.5); RDW Standard Deviation 56.8 fL (36.4-46.3); Red Blood Count 3.48 M/uL (4.20-5.40); White Blood Count 5.71 K/ul (4.8-10.8)
[2023-08-12 08:34] LABS: Albumin Globulin Ratio 0.9 (0.9-2); Albumin Level 2.6 gm/dl (3.4-5.0); BUN Creatinine Ratio 9.7 (10-20); Bilirubin,Total 3.8 mg/dl (0.2-1.0); Calcium 7.6 mg/dl (8.6-10.3); Creatinine Clr Calc Pharmacy 28.5 ml/min; Est GFR (African American) 41.2 ml/min; Est GFR (Non-African American) 35.5 ml/min; Globulin 2.8 gm/dl (2.5-4.0); Potassium 3.7 mmol/L (3.5-5.1); Total Protein 5.4 gm/dl (6.0-8.3)
[2023-08-12] MEDS: CHOLECALCIFEROL 1,000 UNITS 25 MCG TAB PO SCH (08:57)
[2023-08-12] MEDS: allopurinoL 100 MG TAB PO SCH (08:57)
[2023-08-12] MEDS: ATORVASTATIN 40 MG TAB PO SCH (08:57)
[2023-08-12] MEDS: METOPROLOL SUCC 25MG EXT REL TAB PO SCH (08:59)
--- NOTE | 2023-08-12 10:10 | Cardiology Progress Note ---
Date of Service August 12, 2023 Assessment & Plan (1) Cardiomyopathy: (2) Elevated troponin: (3) TIA (transient ischemic attack): (4) CKD (chronic kidney disease): (5) Coffee ground emesis: (6) GIB (gastrointestinal bleeding): Plan ASSESSMENT/PLAN: 1. NSTEMI/elevated troponin: She did not present with acute coronary syndrome and has no symptoms concerning for angina. Elevated troponin could be due to transient LV systolic dysfunction, TIA, or other possibility. Ischemic evaluation not necessary currently. LV systolic function has normalized and thus wall motion abnormalities were likely due to stress induced cardiomyopathy. 2. Cardiomyopathy: LV systolic function is mildly reduced but apical territory akinesis. LV systolic function has normalized and wall motion abnormalities significantly improved and only 3 to 4 days. Can continue metoprolol succinate if tolerated but if orthostatic symptoms worsen or has more profound hypotension than her baseline, could discontinue. She does not require VIRAJ inhibitor given recovery of her LV systolic function. 3. TIA: Her presenting symptom to the hospital was concerning for TIA. Neurology believes it was due to hypotension in the setting of GI bleed. 4. CKD: As per primary hospitalist. 5. Coffee-ground emesis/GI bleed: Blood noted in her ostomy and coffee-ground emesis per nursing staff. EGD on 08/10/2023 reported LA grade D reflux esophagitis but no active bleeding. Anemia as per primary hospitalist service. Has received PRBC x 2. 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 She reports today that her oncologist stated that she will not receive any fu rther chemotherapy. 7. Pancytopenia: Follows with hematology/oncology. Chronic anemia. 8. Disposition: Cardiology will sign off. Please call with any further questions or concerns. Patient care communicated with Dr. Encarnacion. Admission and Anticipated Discharge Date Admission Date: August 10, 2023 Subjective She denies orthopnea, shortness of breath, chest pain, syncope, palpitations, or further GI bleeding. She has chronic lightheadedness when she gets up from a seated position. She states that her blood pressure chronically runs low. She was alone in her hospital room. Physical Exam Physical Exam: Gen.: No acute distress. Alert and oriented. HEENT: Anicteric sclera. Neck: No JVD. Cardiac: No ventricular heave. Regular. Normal S1-S2. 1/6 systolic murmur. No rubs or gallops. Pulmonary: Clear to auscultation bilaterally without wheezes, rales, or rhonchi. Abdomen: Soft, nontender, nondistended, with normoactive bowel sounds. No bruits noted. Ostomy. Extremities: 2+ radial pulses bilaterally. 2+ posterior tibialis pulses bilaterally. No pitting edema. Nonpitting edema of the left lower extremity (stable). No cyanosis. Psychiatric: Affect appears appropriate. Results & Data Vital Signs (Past 12 Hours) Vital Signs Temp Pulse Pulse Resp BP Pulse Ox O2 Del Method 08/12/23 07:40 36.4 C L 84 16 113/75 100 Room Air 08/12/23 07:33 84 08/12/23 03:00 36.5 C 85 16 109/69 100 Room Air 08/11/23 23:00 88 08/11/23 23:00 36.4 C L 84 16 90/51 L 100 Room Air Laboratory Results Laboratory Results - last 24 hr 08/10/23 08/10/23 08/11/23 10:21 10:21 11:19 WBC RBC Hgb Hct MCV MCH MCHC RDW Std Deviation RDW Coeff of Veda Plt Count MPV Immature Gran % (Auto) Neut % (Auto) Lymph % (Auto) Ray % (Auto) Eos % (Auto) Baso % (Auto) Neut # (Auto) Lymph # (Auto) Ray # (Auto) Eos # (Auto) Baso # (Auto) Immature Gran # (Auto) Sodium Potassium Chloride Carbon Dioxide Anion Gap BUN Creatinine Est Cr Clr Drug Dosing Est GFR ( Amer) Est GFR (Non-Af Amer) BUN/Creatinine Ratio Glucose POC Glucose 101 H Calcium Total Bilirubin AST ALT Alkaline Phosphatase Total Protein Albumin Globulin Albumin/Globulin Ratio Blood Type B Positive Antibody Screen POSITIVE A Antibody Identification Anti-E Anti-K Antibody ID Comment Elution Direct Antiglob Test Positive A LEDA (IgG-AHG) Weak Pos A LEDA, Polyspecific Weak Pos A LEDA C3b, C3d 5 Min Neg Crossmatch See Detail 08/11/23 08/11/23 08/11/23 16:24 18:32 20:30 WBC RBC Hgb 10.8 L D Hct 31.8 L MCV MCH MCHC RDW Std Deviation RDW Coeff of Veda Plt Count MPV Immature Gran % (Auto) Neut % (Auto) Lymph % (Auto) Ray % (Auto) Eos % (Auto) Baso % (Auto) Neut # (Auto) Lymph # (Auto) Ray # (Auto) Eos # (Auto) Baso # (Auto) Immature Gran # (Auto) Sodium Potassium Chloride Carbon Dioxide Anion Gap BUN Creatinine Est Cr Clr Drug Dosing Est GFR ( Amer) Est GFR (Non-Af Amer) BUN/Creatinine Ratio Glucose POC Glucose 93 105 H Calcium Total Bilirubin AST ALT Alkaline Phosphatase Total Protein Albumin Globulin Albumin/Globulin Ratio Blood Type Antibody Screen Antibody Identification Antibody ID Comment Elution Direct Antiglob Test LEDA (IgG-AHG) LEDA, Polyspecific LEDA C3b, C3d 5 Min Crossmatch 08/12/23 08/12/23 07:18 08:00 WBC 5.71 RBC 3.48 L Hgb 10.7 L Hct 31.5 L MCV 90.5 MCH 30.7 MCHC 34.0 RDW Std Deviation 56.8 H RDW Coeff of Veda 17.2 H Plt Count 76 L MPV 11.6 Immature Gran % (Auto) 0.5 Neut % (Auto) 75.0 Lymph % (Auto) 12.4 Ray % (Auto) 7.5 Eos % (Auto) 4.4 Baso % (Auto) 0.2 Neut # (Auto) 4.28 Lymph # (Auto) 0.71 L Ray # (Auto) 0.43 Eos # (Auto) 0.25 Baso # (Auto) 0.01 Immature Gran # (Auto) 0.03 Sodium 136 Potassium 3.7 Chloride 113 H Carbon Dioxide 17 L Anion Gap 6 BUN 15 Creatinine 1.55 H Est Cr Clr Drug Dosing 28.5 Est GFR ( Amer) 41.2 Est GFR (Non-Af Amer) 35.5 BUN/Creatinine Ratio 9.7 L Glucose 102 H POC Glucose 101 H Calcium 7.6 L Total Bilirubin 3.8 H AST 38 ALT 12 Alkaline Phosphatase 507 H Total Protein 5.4 L Albumin 2.6 L Globulin 2.8 Albumin/Globulin Ratio 0.9 Blood Type Antibody Screen Antibody Identification Antibody ID Comment Elution Direct Antiglob Test LEDA (IgG-AHG) LEDA, Polyspecific LEDA C3b, C3d 5 Min Crossmatch Diagnostic Findings Limited ECHO 08/12/23: 1. Normal left ventricular size and systolic function. EF 65-70%. Small area of mild hypokinesis involving the distal inferior wall. No left ventricular hypertrophy. 2. Mild left atrial dilation. 3. Limited 2D study as per request. 4. Compared to prior study on 08/09/2023, LV systolic function has improved and wall motion abnormalities have nearly resolved. Telemetry personally reviewed: Sinus rhythm. No arrhythmia. Labs from 08/12/2023 reviewed and notable for abnormal but stable renal function, normal potassium, stable hemoglobin from last evening but still anemic. Thrombocytopenia. Neurology consultation reviewed. Medications Administered Current Inpatient Medications Allopurinol (Allopurinol 100 Mg Tab) 200 mg PO DAILY JEFF Stop: 09/08/23 08:59 Last Admin: 08/12/23 08:57 Dose: 200 mg Atorvastatin Calcium (Atorvastatin 40 Mg Tab) 40 mg PO QAM JEFF Stop: 09/08/23 06:04 Last Admin: 08/12/23 08:57 Dose: 40 mg Dextrose (Dextrose 50% 50 Ml Syringe) 25 - 50 ml IV UD PRN; Protocol PRN Reason: Hypoglycemia Protocol Stop: 09/07/23 23:18 Glucagon (Glucagon For Inj 1 Mg Vial) 1 mg SQ UD PRN; Protocol PRN Reason: Hypoglycemia Protocol Stop: 09/07/23 23:18 Glucose (Glucose 10 Tab/Tube) 4 - 8 tab PO UD PRN; Protocol PRN Reason: Hypoglycemia Treatment Stop: 09/07/23 23:18 Glucose (Glucose 40% Gel 15 Gm Tube) 15 - 30 gm PO UD PRN; Protocol PRN Reason: Hypoglycemia Protocol Stop: 09/07/23 23:18 Heparin Sodium (Porcine) (Heparin 100 Unit/Ml 5ml Flush) 5 ml FLUSH PRN PRN PRN Reason: Flush Stop: 09/07/23 22:19 Ondansetron HCl 8 mg/ Dextrose 54 mls @ 216 mls/hr IV Q4 PRN PRN Reason: Nausea Stop: 09/08/23 08:49 Last Infusion: 08/09/23 10:08 Dose: Infused Pantoprazole Sodium 40 mg/ (Dextrose) 100 mls @ 20 mls/hr IV Q5H JEFF Stop: 09/08/23 13:29 Last Admin: 08/12/23 08:57 Dose: 8 mg/hr, 20 mls/hr Metronidazole (Flagyl) 500 mg in 100 mls @ 100 mls/hr IV Q8H [facility]; Protocol Stop: 08/19/23 16:59 Last Admin: 08/12/23 08:58 Dose: 100 mls/hr Lactated Ringer's (Lr) 1,000 mls @ 80 mls/hr IV .[id number] [facility] Stop: 09/09/23 06:59 Last Admin: 08/12/23 00:42 Dose: 80 mls/hr Cefepime HCl 1,000 mg/ Syringe 10 mls @ 5 mls/min IV Q12H [facility]; Protocol Stop: 08/20/23 16:59 Last Admin: 08/12/23 06:26 Dose: 5 mls/min Latanoprost (Latanoprost 0.005% Op Soln 2.5 Ml Btl) 1 drops OPB HS [facility] Stop: 09/07/23 23:18 Last Admin: 08/11/23 21:19 Dose: 1 drops Metoprolol Succinate (Metoprolol Succ 25mg Ext Rel Tab) 25 mg PO QAM [facility] Stop: 09/08/23 16:29 Last Admin: 08/12/23 08:59 Dose: 25 mg Miscellaneous (Alphagan~Order Awaiting Action) 1 each N/A QS [facility] Stop: 09/08/23 00:00 Last Admin: 08/12/23 08:55 Dose: Not Given Miscellaneous (Carbohydrates For Hypoglycemia ) 15 - 30 gm PO UD PRN PRN Reason: Hypoglycemia Protocol Stop: 09/07/23 23:18 Vitamin D (Cholecalciferol 1,000 Units 25 Mcg Tab) 2,000 units PO QAM [facility] Stop: 09/08/23 08:59 Last Admin: 08/12/23 08:57 Dose: 2,000 units PG Care Time/CCT Total # of Minutes Spent Total Time Spent with Patient: Total time spent is greater than 50% in coordination of care (as documented) at patient's floor/unit and/or counseling patient: Coding Level of Care Code 68826 SUB INP/OBS CARE 2/35MIN Diagnoses Cardiomyopathy I42.9 Elevated troponin R79.89 TIA (transient ischemic attack) G45.9 Stage 3b chronic kidney disease N18.32 Chronic kidney disease stage: stage 3 (moderate) Chronic kidney disease stage 3 subtype: stage 3b (GFR 30-44) Coffee ground emesis K92.0 GIB (gastrointestinal bleeding) K92.2 GI bleed type/associated pathology: unspecified gastrointestinal hemorrhage type (4) CKD (chronic kidney disease) Chronic kidney disease stage: stage 3 (moderate) Chronic kidney disease stage 3 subtype: stage 3b (GFR 30-44) Qualified Code(s): N18.32 - Chronic kidney disease, stage 3b (6) GIB (gastrointestinal bleeding) GI bleed type/associated pathology: unspecified gastrointestinal hemorrhage type Qualified Code(s): K92.2 - Gastrointestinal hemorrhage, unspecified
--- NOTE | 2023-08-12 10:10 | XCELERA ---
[id number] \\[id number]
--- NOTE | 2023-08-12 11:09 | Hospitalist Progress Note ---
Date of Service August 12, 2023 Assessment & Plan (1) Anemia: Plan: - Anemia of chronic disease secondary to CKD vs acute upper GI bleed. Hgb 8.9 on arrival. Decreased to 7.7 and later on increased to 8.8. Patient remained asymptomatic - Hgb this morning 6.2 Type and Screen done yesterday. s/p transfusion of 2 units PRBC Repeat HH 2 hours after transfusion -- Hgb 10.7 - Rectal abscess drain collecting bloody fluids, which may give explanation for worsening anemia. AP CT with oral contrast negative for retroperitoneal bleed or other acute changes - Possible current nausea may be related to sequela of therapy and her pre-ex isting conditions rather than anemia given current hgb - Will monitor Hgb and reassess in the morning (2) Coffee ground emesis: Plan: - Patient with coffee ground emesis on 08/09/23 Has not recurred; no longer feeling nauseous; denies epigastric pain - Diet: clear liquid diet (DM-II); currently nauseous with eating - On Protonix drip - Consulted gastroenterology. EGD (08/10/23) -- LA Grade D (one or more mucosal breaks involving at least 75% of esophageal circumference) esophagitis with no bleeding was found in the lower 1/3 of the esophagus; normal stomach and duodenum - Would benefit from PPI therapy after discharge (3) Cardiomyopathy: Plan: - Large apical akinesis found in TTE as well as mildly reduced LV function (EF 45-50) -- uncertain cause - Cardiology consulted: Repeat TTE today > normal LV size and function; EF 65-70%; small area of hypokinesis in distal inferior wall > Suggests that cardiomyopathy was stress-induced instead of ischemic - Metoprolol succ 25mg added, but not given due to soft BPs Will change parameters so it is held when SBP is <90. (4) Elevated troponin: Plan: - Troponins in ED elevated at 66 and following increasing trend (last value 664) EKG without ST segment or T wave abnormalities, NSR in the 90s Patient wo symptoms of chest pain or left arm/jaw pain or numbness - V/Q scan to r/o PE as a cause -- Negative CTA not done due to hx of CKD - Cardiology consult placed. No ACS; increase in troponins may be due to transient LV dysfunction, TIA, or other cause Start beta danie -- change hold parameter to SBP < 90 (5) Stroke-like symptoms: Plan: - Patient with strokelike symptoms for approximately 10 to 15 minutes (i.e. slurring of speech and word finding difficulty) Symptoms not present in today's evaluation - head and neck imaging negative - ASA given in ED. DC after onset of coffee ground emesis - Neurology consult placed Suspect symptoms were due to hypotension in the setting of a GI bleed rather than CVA/TIA. (6) CKD (chronic kidney disease): Plan: - Stable CKD stage III - No CTAs were ordered secondary to this (7) Diabetes: Plan: - Stable. - Will order Accu-Cheks will be called if less than 80 or greater than 180. 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 Drain in place in LLQ (present since 06/11/23); ostomy also in place Was following with a colorectal surgeon as outpatient. She is on Flagyl and a cephalosporin as an outpatient. Will continue these at this time as IV given npo status and inability to swallow without regurgitating. - Consulted wound care for management of patient's abscess drain and colostomy (9) Thrombocytopenia: Plan: - Stable at 97,000 on admission. 76,000 today - Monitor CBC (10) Hypokalemia: Plan: Mild at 3.3 on admission. Replaced 3.7 this morning (11) Hypomagnesemia: Plan: - 1.5 on admission. Replaced. Corrected to 1.8 Plan Admit to PCU/Telemetry Diet: Clear liquid (DM-II) Lines: rectal drain, colostomy, medport (right upper chest) DVT ppx: SCDs Code: Full Admission and Anticipated Discharge Date Admission Date: August 10, 2023 Supervising Physician Co-Signing Physician Notes I personally examined the patient and verified all amin points of history and exam, discussed case, and agree with decision making with Dr Sweet visited multiple times today. Sleeping comfortably each time. Was awake and alert for resident physician when she was complaining of a bit of nausea and lightheadedness. Had meaningful discussions with cardiology and neurologytherefore allowed patient to rest. vitals noted Resting comfortably. Appears to be in no distress. No focal neurodeficits at rest. Breathing unlabored. Otherwise as above. Anemia Given GI bleeding seems to be minimal at worst, and hemoglobin dropped after scope and that bleeding seems to have resolved, CT without any obvious fluid collections consistent with blood, I am left with suspicion that her bleeding into her IR placed drain may have been the cause. At the same time, status posttransfusion her hemoglobin is much more stable and her vitals look about as good as she is able to move show. Continue to follow closely. Elevated troponin/new dx dilated cardiomyopathy - Did not present with ACS symptoms. large area of apical akinesisNow improved dramatically. Almost certainly stress-induced. TIA - Presented to ED with TIA symptoms. Negative MRI for acute changes. biggest concern would be cardioembolic given new dilated cardiomyopathy, but with EF improving, treatment would essentially be moot. appreciate neurology input and looking at other differentials. Appendicial ca with stump abscess - has been on chemo. Drain placed May 2023. follows with general surgery. continue abx Nauseafortunately nonspecific in that she is not showing any overt signs or symptoms of more worrisome underlying pathology. For now symptomatic caretwice daily H2, twice daily PPI, 4 times daily Carafate. Follow. SCD Subjective Patient is a 63 y/o female with PMHx of Appendiceal adenocarcinoma with rectal abscess and rectal tube drainage who arrived to the ED due to new onset slurring of speech and word finding difficulty plus what she described as a "funny feeling in her head". She also refers she has some left leg weakness that began around 07/28/23 or 07/29/23. She refers feeling nauseous and endorses having "heartburn", especially after eating. She also states that when she stands to go to the bathroom she has felt lightheaded and "wobbly". Denies epigastric or abdominal pain, chest pain, SOB, or any other symptom. Review of Systems Review of Systems: As per HPI. Physical Exam Physical Exam: General: AAOx3, afebrile, NAD HEENT: Normocephalic, PERRLA, EOM intact HEART: RRR, no r/m/g LUNGS: CTA, normal respiratory effort, no respiratory distress CHEST: medport noted in right upper chest ABDOMEN: Soft, nontender, nondistended, colostomy in place, drain noted in LLQ for rectal abscess and its collecting bag contains bloody fluid. EXTREMITIES: left lower extremity swelling without calf tenderness, no worsening compared to previous evaluations; no abnormalities in right LE Results & Data Results & Data Vital Signs (Past 12 Hours) Vital Signs Temp Pulse Pulse Resp BP Pulse Ox O2 Del Method 08/12/23 07:40 36.4 C L 84 16 113/75 100 Room Air 08/12/23 07:33 84 08/12/23 03:00 36.5 C 85 16 109/69 100 Room Air Resident Activity Tracking Resident Involvement: Resident Care Provided Care Provided: Adult Hospital Medicine (6) CKD (chronic kidney disease) Chronic kidney disease stage: stage 3 (moderate) Chronic kidney disease stage 3 subtype: stage 3b (GFR 30-44) Qualified Code(s): N18.32 - Chronic kidney disease, stage 3b
[2023-08-12] MEDS: FAMOTIDINE 20 MG in SYRINGE 3 ML IV SCH (11:54)
--- NOTE | 2023-08-12 11:56 | Neurology Consultation ---
Date of Consultation August 12, 2023 Assessment & Plan (1) Alteration in speech: History of Present Illness Attending Physician: Alfonso Encarnacion DO History of Present Illness HPI: pt with brief event the day of admission with funny feeling of head. Only lasted few minutes and resolved. no headache. just felt change in speech. no LOC. no weakness. pt now with acute GI bleed and hypotension and low Hgb. mri brain negative. pt currently asymptomatic and doing well. admission HPI: This is a pleasant 63-year-old black female who around 330 this afternoon had approximately 10-minute episode where she had some slurred speech some trouble finding words a "funny feeling in her head ". The patient denied any chest pain or shortness of breath whatsoever during her episode. She was asymptomatic by the time she arrived to the ER. Pertinent positive/negative laboratory studies and imaging studies in the ER included the following: Noncontrast CT of the brain was nonacute negative. Labs showed chronic anemia with a hemoglobin of 8.9 g/dL potassium mildly suppressed at 3.3 calcium chronically low at 8.1 corrected calcium I suspect is normal for her albumin alkaline phosphatase chronically elevated at 669 and AST at 58 with a total bilirubin of 3.0 this is all chronic for the patient she does have cancer she currently has a percutaneous rectal tube drainage due to rectal abscess secondary to GI malignancy. Currently on antibiotic therapy at home in the form of Flagyl and Cefdinir. Her baseline troponin appears to be around 12-17. This troponin was 66. Her EKG however was completely normal as normal sinus rhythm with no acute ST-T abnormalities with ventricular rate approximately 90 beats per Course in the emergency department the patient was ordered Plavix. However immediately upon swallowing her Plavix she regurgitated it into a bag. I spoke to the ER doctor Plavix was ordered due to her naproxen allergy. I personally spoke with the patient she has a naproxen "allergy" secondary to her chronic kidney disease. She has taken aspirin and tolerated it in the past. Therefore we will order 325 mg of aspirin x 1 now we have ordered the stroke protocol MRI of the brain and carotid ultrasounds. Will do serial troponins. Due to echocardiogram. The patient is completely asymptomatic at the time my exam as documented below Allergies Allergy/AdvReac Type Severity Reaction Status Date / Time pineapple Allergy Severe anaphylaxis Verified 08/08/23 19:59 tomato Allergy Severe hives, Verified 08/08/23 19:59 throat tightness cantaloupe Allergy Intermediate Hives Verified 08/08/23 19:59 [place] And Derivatives Allergy Intermediate hives Verified 08/08/23 19:59 clarithromycin Allergy Intermediate hives Verified 08/08/23 19:59 lemon Allergy Intermediate Hives Verified 08/08/23 19:59 lemon oil Allergy Intermediate Hives Verified 08/08/23 19:59 tlingit & haida Allergy Intermediate Hives Verified 08/08/23 19:59 naproxen Allergy Intermediate hives Verified 08/08/23 19:59 orange Allergy Intermediate Hives Verified 08/08/23 19:59 orange (food color) Allergy Intermediate Hives Verified 08/08/23 19:59 orange flavor Allergy Intermediate Hives Verified 08/08/23 19:59 orange juice Allergy Intermediate Hives Verified 08/08/23 19:59 Penicillins Allergy Intermediate hives Verified 08/08/23 19:59 latex Allergy Mild rash Verified 08/08/23 19:59 Home Medications Medication Instructions Recorded Confirmed Type brimonidine 0.1 % eye drops 1 drp OPB TID 05/12/19 08/08/23 History (Alphagan P) cholecalciferol (vitamin D3) 50 2,000 unit PO QAM 05/12/19 08/08/23 History mcg (2,000 unit) capsule (Vitamin D3) latanoprost 0.005 % eye drops 1 drp OPB HS 05/12/19 08/08/23 History (Xalatan) multivitamin 1 tab PO QAM 05/12/19 08/08/23 History ondansetron HCl 8 mg tablet 8 mg PO Q8H PRN Nausea 12/18/20 08/08/23 History prochlorperazine maleate 10 mg 10 mg PO Q6 PRN Nausea 12/18/20 08/08/23 History tablet allopurinol 100 mg tablet 200 mg PO DAILY 02/17/23 08/08/23 History potassium chloride 10 mEq 10 meq PO DAILY 02/17/23 08/08/23 History capsule,extended release cefdinir 300 mg capsule 300 mg PO HS 3 weeks #21 caps 07/29/23 08/08/23 Rx metronidazole 500 mg tablet 500 mg PO Q8 3 weeks #63 tabs 07/29/23 08/08/23 Rx Patient History Medical History (Updated 08/12/23 @ 11:55 by Oliverio Galo MD) Alteration in speech Encounter for pre-operative examination Hypomagnesemia 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, unproven Near syncope ABILIO (acute kidney injury) UTI (urinary tract infection) Acute kidney injury superimposed on CKD Borderline diabetes diet controlled Chronic ITP (idiopathic thrombocytopenia) platelet WNL on 06/01/20 labs Anemia chronic, baseline hgb 9-11 range per chart review 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, chemo currently Pancreatitis post-op (2014) Mucinous adenocarcinoma of appendix (~03/2013) 2012 Hyponatremia High cholesterol Surgical History Encounter for insertion of venous access port 2012 (subsequent removal) History of laparotomy USO + salipngectomy Hx laparoscopic cholecystectomy 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 Family History Other Diabetes Heart disease Hypertension Stroke Social History Smoking Status: Never smoker Second Hand Exposure: No; Do You Dip or Chew Tobacco: No; Hx Alcohol Use: No Hx Substance Use: No Preferred Language: Welsh Communication Ability: Effective Visual Impairment: No Limitations Paint Stock Clerk Required: No Beliefs That Will Affect Care: None marital status: Current Living Situation: Family Current Living Situation Comment: lives with son Other Information That Helps Us Care for You: No Feels Safe at Home: Yes Safety Concerns: Feels Safe At This Time Assistive Devices: Other Exam (Neuro) Physical Exam: HEENT: normocephalic Neuro: Mental: AOx4, fluent speech, normal comprehension, no apraxia, no L/R confusion, no neglect CN: PERRL, Full EOM, symmetric face, intact sensation t/o face, midline T/U/P, 5/5 SCM/traps. Motor: No abnormal movements, moves all limbs well. Sens: intact to touch b/l grossly Coord: intact Impression: pt with transient ill defined speech change in setting of acute GI bleed, hypotension. overall not suggestive of stroke or TIA. perhaps related hypotensive event from the GI bleed. Recommendations: no further neuro work up needed. continue tx for GI bleed. avoid hypotension. call again if new question. Chart reviewed I have spent more than 50% educating patient about potential diagnosis and neurological evaluation and coordinating care with patient's treatment team. Total time spent (including chart review and coordination of care): 60 min (this includes chart review). Results & Data Vital Signs (Past 12 Hours) Vital Signs Temp Pulse Pulse Resp BP Pulse Ox O2 Del Method 08/12/23 11:16 36.5 C 78 16 94/57 L 97 Room Air 08/12/23 07:40 36.4 C L 84 16 113/75 100 Room Air 08/12/23 07:33 84 08/12/23 03:00 36.5 C 85 16 109/69 100 Room Air PG Care Time/CCT Total # of Minutes Spent Total Time Spent with Patient: Total time spent is greater than 50% in coordination of care (as documented) at patient's floor/unit and/or counseling patient: Coding Level of Care Code 08119 IN/OBS CONSULT LVL 4,60M Diagnoses Alteration in speech R47.89
[2023-08-12] MEDS: SUCRALFATE 1 GM/10 ML UDC PO SCH ×3 (12:00→20:57)
[2023-08-12] MEDS: HEPARIN 100 UNIT/ML 5ML FLUSH FLUSH PRN (16:32)
--- NOTE | 2023-08-12 16:46 | Billing Data ---
Date of Service August 12, 2023 Coding Level of Care Code 16334 SUB INP/OBS CARE
[2023-08-12] MEDS: LATANOPROST 0.005% OP SOLN 2.5 ML BTL OPB SCH (20:56)
[2023-08-12] MEDS: PANTOprazole 40 MG in SYRINGE 0 ML IV SCH (20:57)
[2023-08-13] MEDS: FAMOTIDINE 20 MG in SYRINGE 3 ML IV SCH ×3 (00:11→21:30)
[2023-08-13] MEDS: metroNIDAZOLE 500 MG/100 ML BAG IV SCH ×3 (00:12→16:28)
[2023-08-13] MEDS: ALPHAGAN~ORDER AWAITING ACTION SCH ×3 (04:29→15:57)
[2023-08-13] MEDS: LACTATED RINGER'S 1,000 ML IV SCH ×3 (04:29→21:33)
--- NOTE | 2023-08-13 05:50 | Hospitalist Progress Note ---
Date of Service August 12, 2023 Assessment & Plan (1) Anemia: Plan: As appropriately indicated by the hospitalist team, anemia is multifactorial. There are elements of chronic kidney disease, possible MDS either inherent or related to previous chemotherapy, and clearly a significant element of ongoing GI losses. Consider repeating nutritional studies to assure that she does not need specific supplementation of B12 or folic acid. With the ongoing GI losses, repeat iron studies might indicate an iron deficiency as well though her recurrent transfusions are probably restoring iron balance to some extent. Persistent elevation of bilirubin more likely reflects chronic liver dysfunction but reticulocyte count and haptoglobin could more completely exclude an element of pathologic hemolysis Certainly identifying and mitigating GI blood losses would be helpful in addition to restoring any nutritional imbalances that might be noted as above. ISRA[place]'s would be a technical consideration in the face of anemia related to kidney disease but not likely to be a practical importance in the near term. Fundamental question, however, is overall level of aggression in the face of the more refractory elements of her medical condition. See below (2) Mucinous adenocarcinoma of appendix: Plan: Prognosis is multifactorial in its elements but certainly a major portion tracks to the appendiceal carcinoma. While that is not currently overwhelmingly active in terms of tumor bulk, the significant recent rise in CEA combined with persistent scan changes of metastatic disease signal persistent activity. We have to be particularly concerned that between surgical scarring and persistent abdominal malignancy, she is having great difficulty in clearing the abdominal abscess for specific healing in that area. She has had multiple chemotherapy regimens in the 10-year history of her disease and the persistent malignancy has almost certainly become significantly multidrug-resistant. Furthermore, in the face of multiple organ dysfunction and poor performance status she would not well tolerate any dose intensive/dose dense approach to its treatment. While their seminal paper specifically focused on non-small cell lung cancer, the publication by Connor et al ([facility] 2010; 363:733) initiated a broader paradigm shift in oncology away from exhaustive cytotoxic treatment irrespective of patient performance status to a more thoughtful integrative balance of oncology and palliative care assessment increasingly shifting the focus of care to the latter in patients with multiorgan dysfunction/poor performance status and more advanced disease especially disease persistent after multiple previous regimens of treatment. Cytotoxic therapy would be explicitly contraindicated in the face of an active abdominal abscess as the consequent immunosuppression could lead to its paradoxical worsening. Even beyond that, statistically, any further attempts at significant cytotoxic therapy for Brooke would more likely shorten her life and would certainly significantly undermine her quality of life. There are no meaningful noncytotoxic options clearly applicable. In the face of her refractory issues of poor performance status and organ dysfunction (kidney, heart, marrow, liver) I do not see that there is any realistic expectation of a fundamental improvement in function that would change that assessment. Brooke is intellectually aware of that as we have spoken at great length previously that we unfortunately do not expect to further change the natural history of her underlying malignancy. She has an incredible drive for life and even under the difficult circumstances of the last months has continued to find suly in her work, participation in [employer], and especially in her son and grandchildren. At this time, she specifically does want to continue on with basic medical support though is starting to understand the much more limited functionality that is becoming her "new normal." She is not ready to go to a full comfort care only approach just yet but I think it will be important to catalyze ongoing conversation of setting appropriate parameters of care that are more realistic given the multiple elements that we have no prospect of rectifying. Some recent attempts to connect her with palliative care as an outpatient did not come to fruition. I did speak informally with Dr. Mcfarland earlier this week and would strongly suggest that palliative care conversations be renewed in an ongoing effort to assure we are making good choices in terms of medical interventions. A particular element of these conversations will be to include her son Kwadwo. I believe Brooke wants to make sure that she is not making excessively conservative choices in her care so that she is not letting down her son. I think that the palliative care conversations may explicitly help her understand that Kwadwo wants her to do what is best for her. Palliative care involvement will also benefit Kwadwo and the rest of the family and helping them to deal with the challenges and emotions of end-of-life issues with Brooke I will be leaving the practice permanently as of August 19 and unfortunately will not have an opportunity to further directly interact with Brooke before that. I will be remotely available almond paste molder this Thursday and Thursday and if further more specific comments would be helpful at that time I would be happy to oblige. Plan There are no further specific oncology interventions that seem likely to be helpful in her care. Palliative care involvement will be pivotal in making sure we are looking at "big picture" issues and appropriately prioritizing in defining supportive care options Admission and Anticipated Discharge Date Admission Date: August 10, 2023 Subjective Hematology/oncology has not been formally consulted but I am leaving the practice and wanted to speak with the patient summarizing from our perspective of her current prognosis and treatment options and leaves an outline for the current hospitalist team that may be helpful in their broader care integration. Results & Data Results & Data Vital Signs (Past 12 Hours) Vital Signs Temp Pulse Pulse Resp BP Pulse Ox O2 Del Method 08/13/23 03:00 36.4 C L 76 14 112/68 100 Room Air 08/12/23 23:00 79 08/12/23 23:00 36.6 C 81 16 102/64 100 Room Air 08/12/23 19:00 36.7 C 74 17 99/55 L 99 Room Air PG Care Time/CCT Total # of Minutes Spent Total Time Spent with Patient: Total time spent is greater than 50% in coordination of care (as documented) at patient's floor/unit and/or counseling patient: Coding Level of Care Code None Diagnoses Anemia D64.9 Anemia type: unspecified type Mucinous adenocarcinoma of appendix C18.1 (1) Anemia Anemia type: unspecified type Qualified Code(s): D64.9 - Anemia, unspecified
[2023-08-13] MEDS: CEFEPIME 1,000 MG in SYRINGE 0 ML IV SCH ×2 (05:56→16:28)
--- NOTE | 2023-08-13 06:02 | Electrocardiogram Report ---
Test Reason : Blood Pressure : / mmHG Vent. Rate : 084 BPM Atrial Rate : 084 BPM P-R Int : 204 ms QRS Dur : 064 ms QT Int : 406 ms P-R-T Axes : 081 011 255 degrees QTc Int : 479 ms Normal sinus rhythm T wave abnormality, consider lateral ischemia Prolonged QT Abnormal ECG When compared with ECG of 09-AUG-2023 16:45, T wave inversion less evident in Anterior leads T wave inversion less evident in Inferior leads Confirmed by Marcio Flores ([id number]) on 08/13/2023 6:01:46 AM Referred By: REFERRED SELF Confirmed By:Marcio Flores
[2023-08-13 06:26] LABS: Basophils # (auto) 0.04 K/uL (0.00-0.20); Basophils % (auto) 0.6 %; Eosinophils # (auto) 0.31 K/uL (0.00-0.50); Eosinophils % (auto) 4.6 %; Immature Granulocytes # (auto) 0.03 K/uL (0.01-0.20); Immature Granulocytes % (auto) 0.4 %; Lymphocytes # (auto) 1.07 K/uL (1.20-3.40); Lymphocytes % (auto) 15.9 %; Mean Corpuscular Hemoglobin 31.2 pg (25.0-34.0); Mean Corpuscular Hgb Conc 34.3 g/dL (32.0-36.0); Mean Corpuscular Volume 90.9 fL (80.0-100.0); Mean Platelet Volume 12.6 fL (9.4-12.4); Monocytes # (auto) 0.51 K/uL (0.11-0.59); Monocytes % (auto) 7.6 %; Neutrophils # (auto) 4.75 K/uL (1.40-6.50); Neutrophils % (auto) 70.9 %; Platelet Count 86 K/uL (130-400); RDW Coefficient of Variation 17.4 % (11.5-14.5); RDW Standard Deviation 57.6 fL (36.4-46.3); Red Blood Count 3.85 M/uL (4.20-5.40); White Blood Count 6.71 K/ul (4.8-10.8)
[2023-08-13 07:03] LABS: Albumin Globulin Ratio 0.9 (0.9-2); Albumin Level 2.6 gm/dl (3.4-5.0); BUN Creatinine Ratio 10.7 (10-20); Bilirubin,Total 3.5 mg/dl (0.2-1.0); Calcium 7.7 mg/dl (8.6-10.3); Creatinine Clr Calc Pharmacy 27.8 ml/min; Est GFR (African American) 39.9 ml/min; Est GFR (Non-African American) 34.4 ml/min; Globulin 2.9 gm/dl (2.5-4.0); Potassium 3.9 mmol/L (3.5-5.1); Total Protein 5.5 gm/dl (6.0-8.3)
[2023-08-13] MEDS ORDERED: ACETAMINOPHEN 1,000 MG/100 ML VIAL IV PRN (09:07)
[2023-08-13] MEDS: allopurinoL 100 MG TAB PO SCH (09:36)
[2023-08-13] MEDS: PANTOprazole 40 MG in SYRINGE 0 ML IV SCH ×2 (09:37→21:09)
[2023-08-13] MEDS: CHOLECALCIFEROL 1,000 UNITS 25 MCG TAB PO SCH (09:37)
[2023-08-13] MEDS: ATORVASTATIN 40 MG TAB PO SCH (09:37)
[2023-08-13] MEDS: SUCRALFATE 1 GM/10 ML UDC PO SCH ×4 (09:39→21:08)
[2023-08-13] MEDS: METOPROLOL SUCC 25MG EXT REL TAB PO SCH (09:53)
--- NOTE | 2023-08-13 10:29 | Gastroenterology Progress Note ---
Date of Service August 13, 2023 Assessment & Plan (1) Coffee ground emesis: Plan: Seems to be stable. H/H are really good. If bleeding continues from stoma would get MRE to evaluate small bowel as I am not sure how helpful scoping her will be. I am going off service tomorrow. If GI needed please call GI information technology manager. Admission and Anticipated Discharge Date Admission Date: August 10, 2023 Subjective Had some "raw" bleeding yesterday. H/H are good. Feels a little lightheaded today Physical Exam Constitutional: WD/WN, vitals as above Results & Data Vital Signs (Past 12 Hours) Vital Signs Temp Pulse Pulse Resp BP Pulse Ox O2 Del Method 08/13/23 09:54 107/65 08/13/23 08:05 36.4 C L 70 14 100/60 99 Room Air 08/13/23 03:00 36.4 C L 76 14 112/68 100 Room Air 08/12/23 23:00 79 08/12/23 23:00 36.6 C 81 16 102/64 100 Room Air
[2023-08-13] MEDS ORDERED: LACTATED RINGER'S 1,000 ML IV ONE ×2 (11:16→11:17)
--- NOTE | 2023-08-13 11:52 | Hospitalist Progress Note ---
Date of Service August 13, 2023 Assessment & Plan (1) Gastroenteritis: Plan: - Patient with symptoms of nausea and vomiting, and also endorses having a more full colostomy bag - Considering possibility this may be related to stomach bug, will order scheduled zofran 4mg q6h for the next 24 hours, then return to prn. Also adding Compazine for breakthrough N/V. Increase IVF rate to 150 ml/hr for added hydration. - Will re-assess tomorrow (2) Anemia: Plan: - Anemia of chronic disease secondary to CKD vs acute upper GI bleed. Hgb 8.9 on arrival. Decreased to 7.7 and later on increased to 8.8. Patient remained asymptomatic - Hgb this morning 12.0 - Will monitor Hgb and reassess in the morning (3) Coffee ground emesis: Plan: - Patient with coffee ground emesis on 08/09/23 Has not recurred; no longer feeling nauseous; denies epigastric pain - Diet: clear liquid diet (DM-II); currently nauseous with eating - On Protonix drip - Consulted gastroenterology. EGD (08/10/23) -- esophagitis with no bleeding was found in the lower 1/3 of the esophagus If bleeding continue from stoma, consider MRE - Would benefit from PPI therapy after discharge (4) Cardiomyopathy: Plan: - Large apical akinesis found in TTE as well as mildly reduced LV function (EF 45-50) -- uncertain cause - Cardiology consulted: Repeat TTE (08/12/23) > normal LV size and function; EF 65-70%; small area of hypokinesis in distal inferior wall > Suggests that cardiomyopathy was stress-induced instead of ischemic - Metoprolol succ 25mg added -- held today due to lightheadedness (5) Elevated troponin: Plan: - Troponins in ED elevated at 66 and following increasing trend (last value 664) EKG without ST segment or T wave abnormalities, NSR in the 90s Patient wo symptoms of chest pain or left arm/jaw pain or numbness - V/Q scan to r/o PE as a cause -- Negative CTA not done due to hx of CKD - Cardiology consult placed. No ACS; increase in troponins may be due to transient LV dysfunction, TIA, or other cause Start beta danie (6) Stroke-like symptoms: Plan: - Patient with strokelike symptoms for approximately 10 to 15 minutes (i.e. slurring of speech and word finding difficulty) Symptoms not present in today's evaluation - head and neck imaging negative - Neurology consult placed Suspect symptoms were due to hypotension in the setting of a GI bleed rather than CVA/TIA. (7) CKD (chronic kidney disease): Plan: - Stable CKD stage III - No CTAs were ordered secondary to this (8) Diabetes: Plan: - Stable. - Will order Accu-Cheks will be called if less than 80 or greater than 180. 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 Drain in place in LLQ (present since 06/11/23); ostomy also in place Was following with a colorectal surgeon as outpatient. She is on Flagyl and a cephalosporin as an outpatient. Will continue these at this time as IV given npo status and inability to swallow without regurgitating. - Consulted wound care for management of patient's abscess drain and colostomy (10) Thrombocytopenia: Plan: - Stable at 97,000 on admission. 86,000 today - Monitor CBC (11) Hypokalemia: Plan: Mild at 3.3 on admission. Replaced 3.9 this morning (12) Hypomagnesemia: Plan: - 1.5 on admission. Replaced. Corrected to 1.8 Plan Admit to PCU/Telemetry Diet: Clear liquid (DM-II) Lines: rectal drain, colostomy, medport (right upper chest) DVT ppx: SCDs Code: Full Admission and Anticipated Discharge Date Admission Date: August 10, 2023 Supervising Physician Co-Signing Physician Notes I personally examined the patient and verified all amin points of history and exam, discussed case, and agree with decision making with Dr Sweet nausea and vomiting today. thinsk she has a stomach bug. stoma filling with stool more too. ongoing nausea. vitals noted laying quietly in bed easily awoken but looks uncomfortable. abd soft but (+) epigastric tenderness no guarding no rebound nausea/vomiting - agree with her suspicion of viral enteritis - especially since her objective findings (labs, vitals) appear predominantly surprisingly reassuring right now. increase fluids, increase antiemetics, continue acid suppression, continue vigilance and supportive care Anemia Given GI bleeding seems to be minimal at worst, and hemoglobin dropped after scope and that bleeding seems to have resolved, CT without any obvious fluid collections consistent with blood, I am left with suspicion that her bleeding into her IR placed drain may have been the cause. At the same time, status posttransfusion her hemoglobin is much more stable and her vitals look about as good as she is able to move show. Continue to follow closely. no overt bleeding today. Elevated troponin/new dx dilated cardiomyopathy - Did not present with ACS symptoms. large area of apical akinesisNow improved dramatically. Almost certainly stress-induced. fortunately appears to be a mostly resolved issue TIA - Presented to ED with TIA symptoms. Negative MRI for acute changes. biggest concern would be cardioembolic given new dilated cardiomyopathy, but with EF improving, treatment would essentially be moot. appreciate neurology input and looking at other differentials. Appendicial ca with stump abscess - has been on chemo. Drain placed May 2023. follows with general surgery. continue abx SCD Subjective Patient is a 63 y/o female with PMHx of Appendiceal adenocarcinoma with rectal abscess and rectal tube drainage who arrived to the ED due to new onset slurring of speech and word finding difficulty plus what she described as a "funny feeling in her head". She also refers she has some left leg weakness that began around 07/28/23 or 07/29/23. She refers feeling nauseous and lightheaded, but states her nausea is better when she lays on her left side. Denies vomiting. Nursing states she tried to give her apple juice this morning, but vomited it up. Nursing also reported low blood sugar level of 63 which increased to 66 after 15g carb. After D50 blood sugar increased to 110 but patient was still feeling lightheaded. VSS at this time with BP of 107/65. No other concerns. When re-evaluated later in the day, patient c/o worsening nausea and reports episodes of vomiting. Also having abdominal discomfort. Review of Systems Review of Systems: As per HPI. Physical Exam Physical Exam: General: AAOx3, afebrile, NAD HEENT: Normocephalic, PERRLA, EOM intact HEART: RRR, no r/m/g LUNGS: CTA, normal respiratory effort, no respiratory distress CHEST: medport noted in right upper chest ABDOMEN: Soft, tender to palpation, nondistended, colostomy in place, drain noted in LLQ for rectal abscess. EXTREMITIES: left lower extremity swelling without calf tenderness, no abnormalities in right LE Results & Data Results & Data Vital Signs (Past 12 Hours) Vital Signs Temp Pulse Resp BP Pulse Ox O2 Del Method 08/13/23 11:49 36.4 C L 73 15 105/66 100 Room Air 08/13/23 09:54 107/65 08/13/23 08:05 36.4 C L 70 14 100/60 99 Room Air 08/13/23 03:00 36.4 C L 76 14 112/68 100 Room Air Resident Activity Tracking Resident Involvement: Resident Care Provided Care Provided: Adult Hospital Medicine (7) CKD (chronic kidney disease) Chronic kidney disease stage: stage 3 (moderate) Chronic kidney disease stage 3 subtype: stage 3b (GFR 30-44) Qualified Code(s): N18.32 - Chronic kidney disease, stage 3b
[2023-08-13] MEDS ORDERED: PROCHLORPERAZINE 5 MG in SYRINGE 4 ML IV PRN (15:16)
--- NOTE | 2023-08-13 15:52 | Billing Data ---
Date of Service August 13, 2023 Coding Level of Care Code 18367 SUB INP/OBS CARE MIN
[2023-08-13] MEDS: ONDANSETRON INJ 2 MG/ML 2 ML VIAL IV SCH ×2 (15:57→21:11)
[2023-08-13] MEDS: LATANOPROST 0.005% OP SOLN 2.5 ML BTL OPB SCH (21:10)
[2023-08-14] MEDS: metroNIDAZOLE 500 MG/100 ML BAG IV SCH ×3 (00:26→17:40)
[2023-08-14] MEDS: ALPHAGAN~ORDER AWAITING ACTION SCH ×3 (00:27→17:09)
[2023-08-14] MEDS: ONDANSETRON INJ 2 MG/ML 2 ML VIAL IV SCH ×2 (03:17→09:17)
[2023-08-14] MEDS: CEFEPIME 1,000 MG in SYRINGE 0 ML IV SCH ×2 (05:58→17:40)
[2023-08-14] MEDS: LACTATED RINGER'S 1,000 ML IV SCH ×4 (05:59→21:19)
[2023-08-14 07:47] LABS: Albumin Globulin Ratio 0.8 (0.9-2); Albumin Level 2.3 gm/dl (3.4-5.0); BUN Creatinine Ratio 9.8 (10-20); Bilirubin,Total 3.2 mg/dl (0.2-1.0); Calcium 7.4 mg/dl (8.6-10.3); Est GFR (African American) 38.4 ml/min; Est GFR (Non-African American) 33.2 ml/min; Potassium 3.8 mmol/L (3.5-5.1); Total Protein 5.3 gm/dl (6.0-8.3)
[2023-08-14 07:52] LABS: Basophils # (auto) 0.03 K/uL (0.00-0.20); Basophils % (auto) 0.5 %; Eosinophils # (auto) 0.36 K/uL (0.00-0.50); Hematocrit (blood only) 33.2 % (37.0-47.0); Hemoglobin 11.1 g/dl (12.0-16.0); Immature Granulocytes # (auto) 0.02 K/uL (0.01-0.20); Immature Granulocytes % (auto) 0.3 %; Lymphocytes # (auto) 1.31 K/uL (1.20-3.40); Lymphocytes % (auto) 21.7 %; Mean Corpuscular Hemoglobin 30.4 pg (25.0-34.0); Mean Corpuscular Hgb Conc 33.4 g/dL (32.0-36.0); Mean Platelet Volume 11.6 fL (9.4-12.4); Monocytes # (auto) 0.56 K/uL (0.11-0.59); Monocytes % (auto) 9.3 %; Neutrophils # (auto) 3.77 K/uL (1.40-6.50); Neutrophils % (auto) 62.2 %; Platelet Count 97 K/uL (130-400); RDW Coefficient of Variation 17.5 % (11.5-14.5); RDW Standard Deviation 58.4 fL (36.4-46.3); Red Blood Count 3.65 M/uL (4.20-5.40); White Blood Count 6.05 K/ul (4.8-10.8)
[2023-08-14] MEDS: CHOLECALCIFEROL 1,000 UNITS 25 MCG TAB PO SCH (09:17)
[2023-08-14] MEDS: allopurinoL 100 MG TAB PO SCH (09:17)
[2023-08-14] MEDS: FAMOTIDINE 20 MG in SYRINGE 3 ML IV SCH ×2 (09:17→21:16)
[2023-08-14] MEDS: ATORVASTATIN 40 MG TAB PO SCH (09:18)
[2023-08-14] MEDS: METOPROLOL SUCC 25MG EXT REL TAB PO SCH (09:18)
[2023-08-14] MEDS: PANTOprazole 40 MG in SYRINGE 0 ML IV SCH ×2 (09:19→21:17)
[2023-08-14] MEDS: SUCRALFATE 1 GM/10 ML UDC PO SCH ×4 (09:19→21:17)
--- NOTE | 2023-08-14 09:27 | Hospitalist Progress Note ---
Date of Service August 14, 2023 Assessment & Plan (1) Gastroenteritis: Plan: - Patient with symptoms of nausea and vomiting, and also endorses having a more full colostomy bag - Continue prn antiemetics and IVF. - Will monitor (2) Anemia: Plan: - Anemia of chronic disease secondary to CKD vs acute upper GI bleed. Hgb 8.9 on arrival. Decreased to 7.7 and later on increased to 8.8. P atient remained asymptomatic - Hgb this morning 11.1 - Will monitor Hgb with am CBC (3) Coffee ground emesis: Plan: - Patient with coffee ground emesis on 08/09/23 Has not recurred; no longer feeling nauseous; denies epigastric pain - Diet: clear liquid diet (DM-II); currently nauseous with eating - On Protonix drip - Consulted gastroenterology. EGD (08/10/23) -- esophagitis with no bleeding was found in the lower 1/3 of the esophagus If bleeding continue from stoma, consider MRE - Would benefit from PPI therapy after discharge (4) Cardiomyopathy: Plan: - Large apical akinesis found in TTE as well as mildly reduced LV function (EF 45-50) -- uncertain cause - Cardiology consulted: Repeat TTE (08/12/23) > normal LV size and function; EF 65-70%; small area of hypokinesis in distal inferior wall > Suggests that cardiomyopathy was stress-induced instead of ischemic - Metoprolol succ 25mg added (5) Elevated troponin: Plan: - Troponins in ED elevated at 66 and following increasing trend (last value 664) EKG without ST segment or T wave abnormalities, NSR in the 90s Patient wo symptoms of chest pain or left arm/jaw pain or numbness - V/Q scan to r/o PE as a cause -- Negative CTA not done due to hx of CKD - Cardiology consult placed. No ACS; increase in troponins may be due to transient LV dysfunction, TIA, or other cause Start beta danie (6) Stroke-like symptoms: Plan: - Patient with strokelike symptoms for approximately 10 to 15 minutes (i.e. slurring of speech and word finding difficulty) Symptoms not present in today's evaluation - head and neck imaging negative - Neurology consult placed Suspect symptoms were due to hypotension in the setting of a GI bleed rather than CVA/TIA. (7) CKD (chronic kidney disease): Plan: - Stable CKD stage III - No CTAs were ordered secondary to this (8) Diabetes: Plan: - Stable. - Will order Accu-Cheks will be called if less than 80 or greater than 180. 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 Drain in place in LLQ (present since 06/11/23); ostomy also in place Was following with a colorectal surgeon as outpatient. She is on Flagyl and a cephalosporin as an outpatient. Will continue these at this time as IV given npo status and inability to swallow without regurgitating. - Consulted wound care for management of patient's abscess drain and colostomy (10) Thrombocytopenia: Plan: - Stable at 97,000 on admission. 97,000 today - Monitor CBC (11) Hypokalemia: Plan: Mild at 3.3 on admission. Replaced 3.8 this morning (12) Hypomagnesemia: Plan: - 1.5 on admission. Replaced. Corrected to 1.8 Plan Med/Tele Diet: Clear liquid (DM-II) Lines: rectal drain, colostomy, medport (right upper chest) DVT ppx: SCDs Code: Full Admission and Anticipated Discharge Date Admission Date: August 10, 2023 Supervising Physician Co-Signing Physician Notes I personally examined the patient and verified all amin points of history and exam, discussed case, and agree with decision making with Dr Sweet Seen several times today. Evaluated stat whenever we were informed of the changes statusaltered mentation and possible neurologic localization. During that time she was not really able to offer much HPI, she was able to loosely follow commands but was very fatigued and fairly irregular with following commands. For what it is worth denied any focal complaints then but also an exceedingly limited HPI that i would essentially call null. vitals noted, very somnolent slow to follow commands somewhat irregularly. Technically no focal neurodeficits and cranial nerves II through XII are intact motor was about 4+ out of 5 equal bilaterally sensory hard to shift production supervisor given her mental statebut with tongue protrusion while it would go out midline, every time she would put it back in her mouthhappening repeatedlyit would point somewhat to the right, and when having her hold her arms up, her left would always fall and she would hold her right upbut when isolated to only using her left arm the strength was equal to her right arm. Breathing unlabored no accessory muscle use good effort. Skin without rashes pallor or icterus. Exam otherwise as above. Encephalopathyetiology not cleardiscussed MRI with neurology, they did not feel it looked consistent with infectious, at any rate, after discussion with patient she did not want a spinal tap, and noted that after her discussion with oncology the other day she had really in her mind moved towards a goal of home with hospice. Waxing and waning mentationsupportive care for now. Given her delicate status and neurology feeling its unlikely to be infectious based on the MRI, I will hold off on empiric antibiotics or antivirals beyond what she is already on for her pelvic infection. Appendiceal cancer with stump abscessher goal would be home with hospice. Started discussions with her son, certainly we will need to see how her mental status progresses and whether or not home/hospice is viable with comfort or not. Work on building hospice plans in tandemboth potentially home if she stabilizes and this is feasible, versus hospital or SNF if she does not. Continue antibiotics given that a worsening infection would likely be painful. nausea/vomiting - Seems most consistent with a viral enteritisseems to be improving. Anemia Given GI bleeding seems to be minimal at worst, and hemoglobin dropped after scope and that bleeding seems to have resolved, CT without any obvious fluid collections consistent with blood, I am left with suspicion that her bleeding into her IR placed drain may have been the cause. At the same time, status posttransfusion her hemoglobin is much more stable and her vitals look about as good as she is able to move show. Continue to follow closely. no overt bleeding today. Elevated troponin/new dx dilated cardiomyopathy - Did not present with ACS symptoms. large area of apical akinesisNow improved dramatically. Almost certainly stress-induced. fortunately appears to be a mostly resolved issue TIA - Presented to ED with TIA symptoms. Negative MRI for acute changes. biggest concern would be cardioembolic given new dilated cardiomyopathy, but with EF improving, treatment would essentially be moot. appreciate neurology input and looking at other differentials. SCD Subjective Patient is a 63 y/o female with PMHx of Appendiceal adenocarcinoma with rectal abscess and rectal tube drainage who arrived to the ED due to new onset slurring of speech and word finding difficulty plus what she described as a "funny feeling in her head". She also refers she has some left leg weakness that began around 07/28/23 or 07/29/23. She refers her nausea has slightly gotten better but has persisted and has not been able to eat much because of it. She also endorses persistent lightheadedness. Denies chest pain, SOB, fevers, chills, or any other symptom. Review of Systems Review of Systems: As per HPI. Physical Exam Physical Exam: General: AAOx3, afebrile, NAD HEENT: Normocephalic, PERRLA, EOM intact HEART: RRR, no r/m/g LUNGS: CTA, normal respiratory effort, no respiratory distress CHEST: medport noted in right upper chest ABDOMEN: Soft, tender to palpation in epigastrium, nondistended, colostomy in place, drain noted in LLQ for rectal abscess. EXTREMITIES: left lower extremity swelling without calf tenderness, mild swelling of right LE Results & Data Results & Data Vital Signs (Past 12 Hours) Vital Signs Temp Pulse Pulse Resp BP Pulse Ox O2 Del Method 08/14/23 07:55 36.7 C 80 20 109/64 99 Room Air 08/14/23 07:20 88 08/14/23 03:14 36.5 C 81 20 113/65 100 Room Air 08/13/23 23:00 82 08/13/23 22:26 36.5 C 79 20 98/61 L 100 Room Air Resident Activity Tracking Resident Involvement: Resident Care Provided Care Provided: Adult Hospital Medicine (7) CKD (chronic kidney disease) Chronic kidney disease stage: stage 3 (moderate) Chronic kidney disease stage 3 subtype: stage 3b (GFR 30-44) Qualified Code(s): N18.32 - Chronic kidney disease, stage 3b
[2023-08-14 10:18] LABS: Magnesium 1.2 mg/dl (1.7-2.4)
[2023-08-14 13:15] LABS: Basophils # (auto) 0.04 K/uL (0.00-0.20); Basophils % (auto) 0.6 %; Eosinophils # (auto) 0.36 K/uL (0.00-0.50); Eosinophils % (auto) 5.5 %; Hematocrit (blood only) 34.1 % (37.0-47.0); Hemoglobin 11.6 g/dl (12.0-16.0); Immature Granulocytes # (auto) 0.04 K/uL (0.01-0.20); Immature Granulocytes % (auto) 0.6 %; Lymphocytes # (auto) 1.23 K/uL (1.20-3.40); Lymphocytes % (auto) 18.9 %; Mean Corpuscular Hemoglobin 30.6 pg (25.0-34.0); Mean Platelet Volume 11.3 fL (9.4-12.4); Monocytes # (auto) 0.59 K/uL (0.11-0.59); Monocytes % (auto) 9.1 %; Neutrophils # (auto) 4.25 K/uL (1.40-6.50); Neutrophils % (auto) 65.3 %; Platelet Count 89 K/uL (130-400); RDW Coefficient of Variation 16.2 % (11.5-14.5); RDW Standard Deviation 53.2 fL (36.4-46.3); Red Blood Count 3.79 M/uL (4.20-5.40); White Blood Count 6.51 K/ul (4.8-10.8)
[2023-08-14 13:27] LABS: Albumin Globulin Ratio 0.8 (0.9-2); Albumin Level 2.5 gm/dl (3.4-5.0); BUN Creatinine Ratio 9.5 (10-20); Bilirubin,Total 3.3 mg/dl (0.2-1.0); Calcium 7.7 mg/dl (8.6-10.3); Creatinine Clr Calc Pharmacy 27.3 ml/min; Est GFR (African American) 37.3 ml/min; Est GFR (Non-African American) 32.2 ml/min; Globulin 3.1 gm/dl (2.5-4.0); Magnesium 1.2 mg/dl (1.7-2.4); Potassium 3.7 mmol/L (3.5-5.1); Total Protein 5.6 gm/dl (6.0-8.3)
--- NOTE | 2023-08-14 14:44 | Magnetic Resonance Report ---
Brain MRI WITHOUT CONTRAST HISTORY: Progressive weakness. r/o stroke TECHNIQUE: Multiplanar multisequence MRI of the brain was performed without the use of contrast. COMPARISON STUDY: Brain MRI 08/08/2023. FINDINGS: There are no areas of restricted diffusion to suggest acute infarction. The midline structu res are intact. Opacified right sphenoid sinus, unchanged. The remaining paranasal sinuses are clear. The orbits are unremarkable. The mastoid air cells are clear. The ventricles and sulci are within no rmal limits for age. There is no mass, hematoma, midline shift. The major vascular flow-voids at the skull base are well maintained. Symmetric T2 hyperintensity involving the dentate nuclei within the c erebellar hemispheres. This is new compared to the prior study. This is best seen on axial T2 image 8 and coronal FLAIR image 16. IMPRESSION: 1. No acute infarct or intracranial hemorrhage. 2. Symmetric T2 hyperintensity involving the dentate nuclei within the cerebellar hemispheres. This i s new compared to the prior study. This has a wide differential and could be seen in the setting of m etabolic/toxic or drug related causes. An infectious/inflammatory or demyelinating disease could also have a similar appearance in the appropriate clinical setting. Neurology consultation recommended. ACT 112: Negative or not required by law. Electronically signed by: Jame Sotomayor M.D. 08/14/2023 2:43 PM
[2023-08-14 15:48] LABS: Base Excess ABG -9.2 mEq/L (-9-1.8); HCO3 ABG 15 mmol/L (19-24); Oxygen Saturation ABG 98.6 % (90-95); PCO2 ABG 28 mmHg (35-46); PO2 ABG 119 mmHg (80-95); pH ABG 7.34 (7.35-7.45)
[2023-08-14 15:49] LABS: Allen Test Pos (Pos)
--- NOTE | 2023-08-14 16:48 | Billing Data ---
Date of Service August 14, 2023 Coding Level of Care Code 24027 SUB INP/OBS CARE MIN
[2023-08-14] MEDS: ONDANSETRON INJ 2 MG/ML 2 ML VIAL IV PRN (17:40)
[2023-08-14] MEDS: LATANOPROST 0.005% OP SOLN 2.5 ML BTL OPB SCH (21:17)
[2023-08-15] MEDS: ALPHAGAN~ORDER AWAITING ACTION SCH ×3 (00:11→15:52)
[2023-08-15] MEDS: metroNIDAZOLE 500 MG/100 ML BAG IV SCH ×3 (01:04→16:53)
[2023-08-15] MEDS: CEFEPIME 1,000 MG in SYRINGE 0 ML IV SCH ×2 (05:59→16:53)
[2023-08-15] MEDS: LACTATED RINGER'S 1,000 ML IV SCH ×3 (05:59→19:36)
[2023-08-15 06:39] LABS: Basophils # (auto) 0.03 K/uL (0.00-0.20); Basophils % (auto) 0.6 %; Eosinophils # (auto) 0.24 K/uL (0.00-0.50); Eosinophils % (auto) 4.9 %; Hematocrit (blood only) 30.8 % (37.0-47.0); Hemoglobin 10.5 g/dl (12.0-16.0); Immature Granulocytes # (auto) 0.02 K/uL (0.01-0.20); Immature Granulocytes % (auto) 0.4 %; Lymphocytes # (auto) 1.04 K/uL (1.20-3.40); Lymphocytes % (auto) 21.1 %; Mean Corpuscular Hemoglobin 30.9 pg (25.0-34.0); Mean Corpuscular Hgb Conc 34.1 g/dL (32.0-36.0); Mean Corpuscular Volume 90.6 fL (80.0-100.0); Mean Platelet Volume 10.3 fL (9.4-12.4); Monocytes # (auto) 0.48 K/uL (0.11-0.59); Monocytes % (auto) 9.8 %; Neutrophils # (auto) 3.11 K/uL (1.40-6.50); Neutrophils % (auto) 63.2 %; Platelet Count 74 K/uL (130-400); RDW Coefficient of Variation 17.5 % (11.5-14.5); RDW Standard Deviation 58.4 fL (36.4-46.3); White Blood Count 4.92 K/ul (4.8-10.8)
[2023-08-15 07:06] LABS: Albumin Globulin Ratio 0.8 (0.9-2); Albumin Level 2.2 gm/dl (3.4-5.0); Bilirubin,Total 3.2 mg/dl (0.2-1.0); Calcium 7.4 mg/dl (8.6-10.3); Creatinine Clr Calc Pharmacy 27.6 ml/min; Est GFR (African American) 36.8 ml/min; Est GFR (Non-African American) 31.8 ml/min; Globulin 2.8 gm/dl (2.5-4.0); Potassium 3.9 mmol/L (3.5-5.1)
--- NOTE | 2023-08-15 07:45 | Hospitalist Progress Note ---
Date of Service August 15, 2023 Assessment & Plan (1) Gastroenteritis: Plan: - Patient with symptoms of nausea and vomiting, and also endorses having a more full colostomy bag, improved today - Continue prn antiemetics and IVF. (2) Anemia: Plan: - Anemia of chronic disease secondary to CKD vs acute upper GI bleed. Hgb 8.9 on arrival. Decreased to 7.7 and later on increased to 8.8. Patient remained asymptomatic - Hgb this morning 10.5 - Will monitor Hgb with am CBC (3) Coffee ground emesis: Plan: - Patient with coffee ground emesis on 08/09/23 Has not recurred; no longer feeling nauseous; denies epigastric pain - Diet: clear liquid diet (DM-II) - On Protonix drip - Consulted gastroenterology. EGD (08/10/23) -- esophagitis with no bleeding was found in the lower 1/3 of the esophagus If bleeding continue from stoma, consider MRE - Would benefit from PPI therapy after discharge (4) Cardiomyopathy: Plan: - Large apical akinesis found in TTE as well as mildly reduced LV function (EF 45-50) -- uncertain cause - Cardiology consulted: Repeat TTE (08/12/23) > normal LV size and function; EF 65-70%; small area of hypokinesis in distal inferior wall > Suggests that cardiomyopathy was stress-induced instead of ischemic - Metoprolol succ 25mg (5) Elevated troponin: Plan: - Troponins in ED elevated at 66 and following increasing trend (last value 664) EKG without ST segment or T wave abnormalities, NSR in the 90s Patient wo symptoms of chest pain or left arm/jaw pain or numbness - V/Q scan to r/o PE as a cause -- Negative CTA not done due to hx of CKD - Cardiology consult placed. No ACS; increase in troponins may be due to transient LV dysfunction, TIA, or other cause Continue beta danie (6) Stroke-like symptoms: Plan: - Patient with strokelike symptoms for approximately 10 to 15 minutes (i.e. slurring of speech and word finding difficulty) - head and neck imaging negative - Neurology consult placed Suspect clinical presentation likely metabolic in origin - MRI brain 08/14 negative for acute infarct but suggestive of broad possibly differential including metabolic/toxic vs infectious/inflammatory cause - Given waxing/waning clinical presentation, will start IV methylprednisone and acyclovir (7) CKD (chronic kidney disease): Plan: - Stable CKD stage III - No CTAs were ordered secondary to this (8) Diabetes: Plan: - Stable. - Will order Accu-Cheks will be called if less than 80 or greater than 180. 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 Drain in place in LLQ (present since 06/11/23); ostomy also in place Was following with a colorectal surgeon as outpatient. She is on Flagyl and a cephalosporin as an outpatient. Will continue these at this time as IV given npo status and inability to swallow without regurgitating. - Consulted wound care for management of patient's abscess drain and colostomy (10) Thrombocytopenia: Plan: - Stable at 97,000 on admission. 74,000 today - Monitor CBC (11) Hypokalemia: Plan: Mild at 3.3 on admission. Replaced 3.9 this morning (12) Hypomagnesemia: Plan: - Repleted. Recheck AM lab. Plan Med/Tele Diet: Clear liquid (DM-II) Lines: rectal drain, colostomy, medport (right upper chest) DVT ppx: SCDs Code: Full Admission and Anticipated Discharge Date Admission Date: August 10, 2023 Supervising Physician Co-Signing Physician Notes I personally examined the patient and verified all amin points of history and exam, discussed case, and agree with decision making with Dr Gay More somnolent and slow to respond today. Notes that she has some double vision, but I really cannot get her to quantify anything more about itit seems to be horizontal rather than vertical, but whenever I try to determine monocular versus binocular she is not able to follow commands enough to follow through with that. Updated her son. Dr Gay discussed code status with son given that patient was not able to do so today - Son felt it most appropriate to change her status to a DNRI concur with this, and given patient's expressed desire for hospice yesterday and desire for no testing even such as LPI feel DNR status would be consistent with her wishes. Vitals noted. Very sluggish. Fortunately does not appear to be in distress. Breathing unlabored no accessory muscles. Neuro does not show focal deficits, except whenever I have her looking at my finger and I am trying to test vision and extraocular motion, she has a rapid lateral movement consistent with nystagmus, but not at the end of an ocular range of motion as would typically be the case with nystagmus. Encephalopathy Etiology not entirely clear, but does seem to show some degree of "pseudo neurologic" findings. She declined LP, continue supportive care. Overall goal is comfort/hospice. Appendiceal cancer with stump abscessher goal would be home with hospice. Started discussions with her son, certainly we will need to see how her mental status progresses and whether or not home/hospice is viable with comfort or not. Work on building hospice plans in tandemboth potentially home if she stabilizes and this is feasible, versus hospital or SNF if she does not. Continue antibiotics given that a worsening infection would likely be painful. nausea/vomiting - Seems most consistent with a viral enteritisseems to be improving. Anemia Given GI bleeding seems to be minimal at worst, and hemoglobin dropped after scope and that bleeding seems to have resolved, CT without any obvious fluid collections consistent with blood, I am left with suspicion that her bleeding into her IR placed drain may have been the cause. Elevated troponin/new dx dilated cardiomyopathy - Did not present with ACS symptoms. large area of apical akinesisNow improved dramatically. Almost certainly stress-induced. fortunately appears to be a mostly resolved issue TIA - Presented to ED with TIA symptoms. Negative MRI for acute changes. biggest concern would be cardioembolic given new dilated cardiomyopathy, but with EF improving, treatment would essentially be moot. appreciate neurology input and looking at other differentials. SCD Subjective Patient is a 63 y/o female with PMHx of Appendiceal adenocarcinoma with rectal abscess and rectal tube drainage who arrived to the ED due to new onset slurring of speech and word finding difficulty plus what she described as a "funny feeling in her head". She also refers she has some left leg weakness that began around 07/28/23 or 07/29/23. On evaluation this morning, patient denies N/V and notes better tolerance of PO intake but states that she has been having double vision for the past 30 minutes. Patient appears lethargic and struggles to engage in conversation, displays evident word finding difficulty. Review of Systems Review of Systems: as per HPI Physical Exam Physical Exam: General: Patient lethargic, struggles to keep eyes open and at times has difficulty answering questions Cardiac: Regular rate and rhythm, no murmurs appreciated Respiratory: No increased work of breathing Neuro: Patient lethargic but appears oriented though she has word-finding difficulty and displays moderate dysarthria with speech. Sensation intact, UE strength decreased bilaterally but symmetrical. CN II-XII grossly intact apart from tongue deviation to the right. Difficulty following commands, unable to perform rapid alternating movements. Results & Data Results & Data Vital Signs (Past 12 Hours) Vital Signs Temp Pulse Pulse Resp BP BP Pulse Ox 08/15/23 07:00 80 08/15/23 04:15 36.7 C 82 18 120/63 100 08/15/23 01:59 75 08/14/23 22:15 36.7 C 76 16 101/58 L 100 08/14/23 21:00 08/14/23 20:21 36.9 C 80 18 103/65 98 O2 Del Method 08/15/23 07:00 08/15/23 04:15 Room Air 08/15/23 01:59 08/14/23 22:15 Room Air 08/14/23 21:00 Room Air 08/14/23 20:21 Room Air Resident Activity Tracking Resident Involvement: Resident Care Provided Care Provided: Adult Hospital Medicine (7) CKD (chronic kidney disease) Chronic kidney disease stage: stage 3 (moderate) Chronic kidney disease stage 3 subtype: stage 3b (GFR 30-44) Qualified Code(s): N18.32 - Chronic kidney disease, stage 3b
--- NOTE | 2023-08-15 10:14 | Neurology Progress Note ---
Date of Service August 15, 2023 Assessment & Plan (1) Gastroenteritis: Admission and Anticipated Discharge Date Admission Date: August 10, 2023 Subjective pt this morning does appear sluggish with slow to answer but she is fully oriented and able to tell me name of hospital, month, year. Results & Data Vital Signs (Past 12 Hours) Vital Signs Temp Pulse Pulse Resp BP Pulse Ox O2 Del Method 08/15/23 09:56 113/66 08/15/23 08:03 36.6 C 81 13 107/65 100 Room Air 08/15/23 07:00 80 08/15/23 04:15 36.7 C 82 18 120/63 100 Room Air 08/15/23 01:59 75 08/14/23 22:15 36.7 C 76 16 101/58 L 100 Room Air Exam (Neuro) Physical Exam: Neuro: Mental: AOx4, fluent speech, normal comprehension, no apraxia, no neglect, she does appears to be sluggish but not encephalopathic as she is able to answer questions appropriately. CN: PERRL, Full EOM, symmetric face, intact sensation t/o face. dry lips. Motor: No abnormal movements, moves all limbs b/l. diffuse subjective weakness t/o. Coord: intact upper limbs. Impression: 63 yo female with episodic confusion and feeling generalized weakness in setting of anemia from acute GI bleed, gastroenteritis, NSTEMI. mri brain reviewed it the finding in cerebellum is not acute and appears to be metabolic disorder change and not infection or mets. Pt's overall condition likely fluctuating due to several factors including ongoing GI issues/anemia/bleed and dehydration and deconditioning. Recommendations: agree with ongoing supportive care as now. avoid hypotension. consider nutritional consult and avoid dehydration and malnutrition. Chart reviewed I have spent more than 50% educating patient about potential diagnosis and neurological evaluation and coordinating care with patient's treatment team. Total time spent (including chart review and coordination of care): 50 min (this includes chart review). PG Care Time/CCT Total # of Minutes Spent Total Time Spent with Patient: Total time spent is greater than 50% in coordination of care (as documented) at patient's floor/unit and/or counseling patient: Coding Level of Care Code 39588 SUB INP/OBS CARE 3/50MIN Diagnoses Gastroenteritis K52.9
[2023-08-15] MEDS: PANTOprazole 40 MG in SYRINGE 0 ML IV SCH ×2 (10:17→22:16)
[2023-08-15] MEDS: CHOLECALCIFEROL 1,000 UNITS 25 MCG TAB PO SCH (10:17)
[2023-08-15] MEDS: METOPROLOL SUCC 25MG EXT REL TAB PO SCH (10:17)
[2023-08-15] MEDS: FAMOTIDINE 20 MG in SYRINGE 3 ML IV SCH ×2 (10:18→22:24)
[2023-08-15] MEDS: allopurinoL 100 MG TAB PO SCH (10:18)
[2023-08-15] MEDS: ATORVASTATIN 40 MG TAB PO SCH (10:18)
[2023-08-15] MEDS: SUCRALFATE 1 GM/10 ML UDC PO SCH ×4 (10:18→22:17)
[2023-08-15] MEDS: ONDANSETRON INJ 2 MG/ML 2 ML VIAL IV PRN (10:25)
[2023-08-15] MEDS: ACYCLOVIR SOD 450 MG in DEXTROSE 5% 100 ML IV SCH (12:51)
[2023-08-15] MEDS: MAGNESIUM SULFATE / D5W 1 GM/100 ML BAG IV SCH ×4 (13:52→19:45)
[2023-08-15] MEDS: methylPREDNISolone 80 MG in SYRINGE 0 ML IV SCH ×2 (15:39→22:17)
--- NOTE | 2023-08-15 17:44 | Billing Data ---
Date of Service August 15, 2023 Coding Level of Care Code 28463 SUB INP/OBS CARE
[2023-08-15] MEDS: LATANOPROST 0.005% OP SOLN 2.5 ML BTL OPB SCH (22:24)
[2023-08-16] MEDS: ALPHAGAN~ORDER AWAITING ACTION SCH ×3 (00:26→18:31)
[2023-08-16] MEDS ORDERED: Nursing to Pharmacy Communication SCH (00:45)
[2023-08-16] MEDS: ACYCLOVIR SOD 450 MG in DEXTROSE 5% 100 ML IV SCH ×2 (01:00→11:57)
[2023-08-16] MEDS: metroNIDAZOLE 500 MG/100 ML BAG IV SCH ×3 (01:02→16:43)
[2023-08-16] MEDS: LACTATED RINGER'S 1,000 ML IV SCH ×4 (02:11→22:21)
[2023-08-16] MEDS: methylPREDNISolone 80 MG in SYRINGE 0 ML IV SCH ×3 (05:08→22:41)
[2023-08-16] MEDS: CEFEPIME 1,000 MG in SYRINGE 0 ML IV SCH ×2 (05:08→16:42)
[2023-08-16 06:38] LABS: Hematocrit (blood only) 33.4 % (37.0-47.0); Hemoglobin 11.5 g/dl (12.0-16.0); Mean Corpuscular Hemoglobin 30.8 pg (25.0-34.0); Mean Corpuscular Hgb Conc 34.4 g/dL (32.0-36.0); Mean Corpuscular Volume 89.5 fL (80.0-100.0); Platelet Count 72 K/uL (130-400); RDW Coefficient of Variation 17.4 % (11.5-14.5); RDW Standard Deviation 57.1 fL (36.4-46.3); Red Blood Count 3.73 M/uL (4.20-5.40); White Blood Count 2.81 K/ul (4.8-10.8)
[2023-08-16 07:01] LABS: BUN Creatinine Ratio 11.8 (10-20); Calcium 7.5 mg/dl (8.6-10.3); Creatinine Clr Calc Pharmacy 28.3 ml/min; Est GFR (African American) 36.8 ml/min; Est GFR (Non-African American) 31.8 ml/min; Potassium 4.3 mmol/L (3.5-5.1)
--- NOTE | 2023-08-16 07:15 | Hospitalist Progress Note ---
Date of Service August 16, 2023 Assessment & Plan (1) Gastroenteritis: Plan: - Resolved. Advance diet as tolerated. - Continue prn antiemetics and IVF. (2) Anemia: Plan: - Anemia of chronic disease secondary to CKD vs acute upper GI bleed. Hgb 8.9 on arrival. - Hgb this morning 11.5, stable (3) Coffee ground emesis: Plan: - Patient with coffee ground emesis on 08/09/23 Has not recurred; no longer feeling nauseous; denies epigastric pain - Diet: Full liquid, advance as tolerated - Continue Protonix - Consulted gastroenterology: EGD (08/10/23) -- esophagitis with no bleeding was found in the lower 1/3 of the esophagus If bleeding continue from stoma, consider MRE - Would benefit from continued PPI therapy after discharge (4) Cardiomyopathy: Plan: - Large apical akinesis found on initial TTE as well as mildly reduced LV function (EF 45-50) - Cardiology consulted: Repeat TTE (08/12/23) > normal LV size and function; EF 65-70%; small area of hypokinesis in distal inferior wall > Suggests that cardiomyopathy was stress-induced instead of ischemic - Metoprolol succ 25mg (5) Elevated troponin: Plan: - Troponins in ED elevated at 66 and following increasing trend (last value 664) EKG without ST segment or T wave abnormalities, NSR in the 90s Patient wo symptoms of chest pain or left arm/jaw pain or numbness - V/Q scan to r/o PE as a cause -- Negative CTA not done due to hx of CKD - Cardiology consult placed. No ACS; increase in troponins may be due to transient LV dysfunction, TIA, or other cause Continue beta danie (6) Stroke-like symptoms: Plan: - Patient with strokelike symptoms for approximately 10 to 15 minutes (i.e. slurring of speech and word finding difficulty) - head and neck imaging negative - Neurology consult placed Suspect clinical presentation likely metabolic in origin - MRI brain 08/14 negative for acute infarct but suggestive of broad possible differential including metabolic/toxic vs infectious/inflammatory cause - Given waxing/waning clinical presentation, continue IV methylprednisone and acyclovir for now, though consider discontinuing steroids if no improvement noted, particularly given recent GI history. (7) CKD (chronic kidney disease): Plan: - Stable CKD stage III - No CTAs were ordered secondary to this (8) Diabetes: Plan: - Stable. - Will order Accu-Cheks will be called if less than 80 or greater than 180. 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 Drain in place in LLQ (present since 06/11/23); ostomy also in place Was following with a colorectal surgeon as outpatient. She is on Flagyl and a cephalosporin as an outpatient. Will continue these at this time. - Consulted wound care for management of patient's abscess drain and colostomy (10) Thrombocytopenia: Plan: - Stable at 97,000 on admission. 72,000 today - Monitor CBC (11) Hypomagnesemia: Plan: - Repleted. Mag this morning 2.0 Plan Med/Tele Diet: Full liquid (DM-II), advance as tolerated Lines: rectal drain, colostomy, medport (right upper chest) DVT ppx: SCDs Code: DNR/DNI Admission and Anticipated Discharge Date Admission Date: August 10, 2023 Supervising Physician Co-Signing Physician Notes I personally examined the patient and verified all amin points of history and exam, discussed case, and agree with decision making with Dr Gay Patient remains somnolent. Encephalopathy Etiology not entirely clear, but does seem to show some degree of "pseudo neurologic" findings. She declined LP, continue supportive care. Continue overall goal is comfort/hospice. Appendiceal cancer with stump abscessher goal would be home with hospice. Started discussions with her son, certainly we will need to see how her mental status progresses and whether or not home/hospice is viable with comfort or not. Work on building hospice plans in tandemboth potentially home if she stabilizes and this is feasible, versus hospital or SNF if she does not. Continue antibiotics given that a worsening infection would likely be painful. nausea/vomiting - Seems most consistent with a viral enteritisseems to be improving. Anemia Given GI bleeding seems to be minimal at worst, and hemoglobin dropped after scope and that bleeding seems to have resolved, CT without any obvious fluid collections consistent with blood, I am left with suspicion that her bleeding into her IR placed drain may have been the cause. Elevated troponin/new dx dilated cardiomyopathy - Did not present with ACS symptoms. large area of apical akinesisNow improved dramatically. Almost certainly stress-induced. fortunately appears to be a mostly resolved issue TIA - Presented to ED with TIA symptoms. Negative MRI for acute changes. biggest concern would be cardioembolic given new dilated cardiomyopathy, but with EF improving, treatment would essentially be moot. appreciate neurology input and looking at other differentials. SCD Subjective Patient is a 63 y/o female with PMHx of Appendiceal adenocarcinoma with rectal abscess and rectal tube drainage who arrived to the ED due to new onset slurring of speech and word finding difficulty plus what she described as a "funny feeling in her head". She also refers she has some left leg weakness that began around 07/28/23 or 07/29/23. On evaluation this morning, patient is more somnolent compared to yesterday, is AOx3 but struggles to keep eyes open for more than a few seconds. Is able to communicate that she is not experiencing any nausea or vomiting but otherwise is largely unintelligible. Review of Systems Review of Systems: as per HPI Physical Exam Physical Exam: General: Patient lethargic, struggles to keep eyes open and at times has difficulty answering questions Cardiac: Regular rate and rhythm, no murmurs appreciated Respiratory: No increased work of breathing Neuro: Patient AOx3 but lethargic, more so than when previously examined. EOM intact, thorough exam not able to be performed as patient struggled to follow commands beyond that. +dysarthria, word finding difficulty. Results & Data Results & Data Vital Signs (Past 12 Hours) Vital Signs Temp Pulse Pulse Resp BP Pulse Ox O2 Del Method 08/16/23 04:06 36.5 C 72 18 109/62 98 Room Air 08/15/23 23:15 36.6 C 80 18 113/65 99 Room Air 08/15/23 23:00 71 08/15/23 19:47 36.7 C 75 18 123/72 97 Room Air 08/15/23 19:25 Room Air Resident Activity Tracking Resident Involvement: Resident Care Provided Care Provided: Adult [facility] Medicine (7) CKD (chronic kidney disease) Chronic kidney disease stage: stage 3 (moderate) Chronic kidney disease stage 3 subtype: stage 3b (GFR 30-44) Qualified Code(s): N18.32 - Chronic kidney disease, stage 3b
[2023-08-16] MEDS: PANTOprazole 40 MG in SYRINGE 0 ML IV SCH ×2 (07:58→22:42)
[2023-08-16] MEDS: allopurinoL 100 MG TAB PO SCH (07:58)
[2023-08-16] MEDS: CHOLECALCIFEROL 1,000 UNITS 25 MCG TAB PO SCH (07:58)
[2023-08-16] MEDS: METOPROLOL SUCC 25MG EXT REL TAB PO SCH (07:59)
[2023-08-16] MEDS: SUCRALFATE 1 GM/10 ML UDC PO SCH ×4 (07:59→22:43)
[2023-08-16] MEDS: ATORVASTATIN 40 MG TAB PO SCH (08:00)
[2023-08-16] MEDS: FAMOTIDINE 20 MG in SYRINGE 3 ML IV SCH ×2 (08:11→22:42)
[2023-08-17] MEDS: ALPHAGAN~ORDER AWAITING ACTION SCH ×3 (00:02→16:04)
[2023-08-17] MEDS: LATANOPROST 0.005% OP SOLN 2.5 ML BTL OPB SCH ×2 (00:02→19:43)
[2023-08-17] MEDS: metroNIDAZOLE 500 MG/100 ML BAG IV SCH ×3 (01:21→16:10)
[2023-08-17] MEDS: ACYCLOVIR SOD 450 MG in DEXTROSE 5% 100 ML IV SCH (01:21)
[2023-08-17] MEDS: CEFEPIME 1,000 MG in SYRINGE 0 ML IV SCH ×2 (05:53→16:11)
[2023-08-17] MEDS: methylPREDNISolone 80 MG in SYRINGE 0 ML IV SCH (05:55)
[2023-08-17 05:58] LABS: Hematocrit (blood only) 33.6 % (37.0-47.0); Hemoglobin 11.5 g/dl (12.0-16.0); Mean Corpuscular Hemoglobin 30.3 pg (25.0-34.0); Mean Corpuscular Hgb Conc 34.2 g/dL (32.0-36.0); Mean Corpuscular Volume 88.7 fL (80.0-100.0); Platelet Count 74 K/uL (130-400); RDW Coefficient of Variation 17.2 % (11.5-14.5); RDW Standard Deviation 56.1 fL (36.4-46.3); Red Blood Count 3.79 M/uL (4.20-5.40); White Blood Count 4.04 K/ul (4.8-10.8)
[2023-08-17 06:10] LABS: Albumin Globulin Ratio 0.8 (0.9-2); Albumin Level 2.4 gm/dl (3.4-5.0); BUN Creatinine Ratio 12.4 (10-20); Bilirubin,Total 3.3 mg/dl (0.2-1.0); Calcium 7.4 mg/dl (8.6-10.3); Est GFR (African American) 27.3 ml/min; Est GFR (Non-African American) 23.5 ml/min; Globulin 3.2 gm/dl (2.5-4.0); Magnesium 1.9 mg/dl (1.7-2.4); Potassium 4.5 mmol/L (3.5-5.1); Total Protein 5.6 gm/dl (6.0-8.3)
--- NOTE | 2023-08-17 07:11 | Hospitalist Progress Note ---
Date of Service August 17, 2023 Assessment & Plan (1) Gastroenteritis: (2) Anemia: (3) Coffee ground emesis: (4) Cardiomyopathy: (5) Elevated troponin: (6) Stroke-like symptoms: (7) CKD (chronic kidney disease): (8) Diabetes: (9) Intra-abdominal abscess: (10) Thrombocytopenia: (11) Hypomagnesemia: Plan Patient is a 63 y/o female with 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 Today, pt was oriented x4 this morning, still sluggish to respond. In the afternoon, started to have some muscle tremors/spasms and was no longer oriented. Telemetry reviewed and unremarkable. Vitals stable. The tremors/spasms have since resolved. Labs including CBC, CMP, ammonia, and CK were ordered. With rising Cr today, will also get bladder scan. At this point, concerned that her waxing and waning mental status may be encephalopathic, such as due to hepatorenal syndrome with rising Cr and rising liver enzymes. Stroke-like symptoms, AMS - on admission, pt had strokelike symptoms for approximately 10 to 15 minutes (i.e. slurring of speech and word finding difficulty), appeared lethargic at one point - MRI brain 08/14 negative for acute infarct but suggestive of broad possible differential including metabolic/toxic vs infectious/inflammatory cause - Neurology consult placed, suspect clinical presentation likely metabolic in origin, - will discontinue acyclovir and steroids, as doubt infectious etiology at play with no WBC count and no change in status on acyclovir the last few days anyways ABILIO on CKD (chronic kidney disease) - Stable CKD stage III, baseline Cr around 1.7 - now with ABILIO with Cr this morning 2.18, pt has ABILIO - will hold fluid for now and get bladder scan and repeat BMP this afternoon Anemia - Anemia of chronic disease secondary to CKD vs acute upper GI bleed Hgb 8.9 on arrival, had 2 units PRBCs earlier this admission - Hgb this morning 11.5, stable from yesterday - given GI condition, will check ferritin and iron levels and if low, may consider IV iron in this pt Gastroenteritis - Resolved. Advance diet as tolerated. - Continue prn antiemetics and IVF. Coffee ground emesis, resolved - Patient with coffee ground emesis on 08/09/23 Has not recurred; no longer feeling nauseous; denies epigastric pain - Continue Protonix - Consulted gastroenterology: EGD (08/10/23) -- esophagitis with no bleeding was found in the lower 1/3 of the esophagus If bleeding continue from stoma, consider MRE - Would benefit from continued PPI therapy after discharge Cardiomyopathy - Large apical akinesis found on initial TTE as well as mildly reduced LV function (EF 45-50) - Cardiology consulted: Repeat TTE (08/12/23) > normal LV size and function; EF 65-70%; small area of hypokinesis in distal inferior wall > Suggests that cardiomyopathy was stress-induced instead of ischemic - Metoprolol succ 25mg Elevated troponin - Troponins in ED elevated at 66 and following increasing trend (last value 664) EKG without ST segment or T wave abnormalities, NSR in the 90s Patient wo symptoms of chest pain or left arm/jaw pain or numbness - V/Q scan to r/o PE as a cause -- Negative CTA not done due to hx of CKD - Cardiology consult placed. No ACS; increase in troponins may be due to transient LV dysfunction, TIA, or other cause Continue beta danie Diabetes - Stable. 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 Drain in place in LLQ (present since 06/11/23); ostomy also in place Was following with a colorectal surgeon as outpatient. She is on Flagyl and a cephalosporin as an outpatient. Will continue these at this time. - Consulted wound care for management of patient's abscess drain and colostomy Thrombocytopenia - Monitor CBC DVT ppx: SCDs as pt had GI bleed few days ago and is s/p 2 units PRBCs IVF: LR on hold after 7 days of LR at 150/hr Lines: rectal drain, colostomy, medport (right upper chest) Admission and Anticipated Discharge Date Admission Date: August 10, 2023 Supervising Physician Co-Signing Physician Notes Attending Physician Supervision Note: I independently interviewed and examined the patient and verified the amin history and physical, reviewed labs and image studies and agree with findings and care plan noted above. seen multiple times through the day. remembered me and said my name but speech not clear. desires to get better. comfortable in bed. speech not clear. RRR, chest clear anteriorly. abdomen soft, ostomy +. No focal neuro deficit appreciated. ABILIO on ckd - rising creatinine on rechecks today. hold IVF - has been on 150ml/hr for >7 days. UA, joyce, renal ultrasound. nephro consult. follow renal function. lactate normal. normal wbc. Elevated LFT - known metastatic ds. follow and further discussion about goals of care. Encephalopathy Etiology not entirely clear, but does seem to show some degree of "pseudo neurologic" findings. She declined LP, continue supportive care. Normal ammonia. Further discussion for overall goal is comfort/hospice in am. Appendiceal cancer with stump abscessper previous discussion with son - her goal would be home with hospice. Unclear is patient desires that. further discussion in am. Continue antibiotics. nausea/vomiting - Seems most consistent with a viral enteritisseems to be improving. Anemia EGD neg for bleeding source. ostomy with some blood stain. possible IR drain as source but not blood stain in the drain. s/p 2 units PRBC. h/h stable. CMP - Repeat echo with improved overall vent function but apical akinesis persists - Did not present with ACS symptoms. Almost certainly stress-induced. fortunately appears to be a mostly resolved issue TIA - Presented to ED with TIA symptoms. Negative MRI for acute changes. possible pseudo-neurologic presentation. SCD Subjective Patient is a 63 y/o female with 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 Today, pt denies being in any kind of pain. She is slow to respond but is oriented to person, place, time, and event. She states she is feeling okay, no questions or complaints at this time. No acute overnight events noted. No chest pain or SOB. Nursing staff had no immediate concerns. Review of Systems Review of Systems: Per HPI. Physical Exam Physical Exam: General:Alert and oriented but sluggish to respond, no acute distress, HEENT: Normocephalic, scleral icterus noted Cardio: Regular rate and rhythm, Resp:Lungs clear to auscultation b/l, no wheezes or rhonchi, Skin: Warm, dry, Results & Data Results & Data Vital Signs (Past 12 Hours) Vital Signs Temp Pulse Pulse Resp BP Pulse Ox O2 Del Method 08/17/23 04:00 36.9 C 75 18 126/70 98 Room Air 08/17/23 03:26 Room Air 08/16/23 22:01 81 08/16/23 22:00 36.6 C 72 18 128/73 98 Room Air Resident Activity Tracking Resident Involvement: Resident Care Provided Care Provided: Adult Hospital Medicine (7) CKD (chronic kidney disease) Chronic kidney disease stage: stage 3 (moderate) Chronic kidney disease stage 3 subtype: stage 3b (GFR 30-44) Qualified Code(s): N18.32 - Chronic kidney disease, stage 3b
[2023-08-17] MEDS: LACTATED RINGER'S 1,000 ML IV SCH (07:46)
[2023-08-17] MEDS: METOPROLOL SUCC 25MG EXT REL TAB PO SCH (07:48)
[2023-08-17] MEDS: CHOLECALCIFEROL 1,000 UNITS 25 MCG TAB PO SCH (07:48)
[2023-08-17] MEDS: allopurinoL 100 MG TAB PO SCH (07:49)
[2023-08-17] MEDS: ATORVASTATIN 40 MG TAB PO SCH (07:49)
[2023-08-17] MEDS: PANTOprazole 40 MG in SYRINGE 0 ML IV SCH ×2 (07:50→19:44)
[2023-08-17] MEDS: SUCRALFATE 1 GM/10 ML UDC PO SCH ×4 (07:53→19:44)
[2023-08-17] MEDS: FAMOTIDINE 20 MG in SYRINGE 3 ML IV SCH ×2 (08:25→19:44)
--- NOTE | 2023-08-17 10:25 | Billing Data ---
Date of Service August 16, 2023 Coding Level of Care Code 44291 SUB INP/OBS CARE
[2023-08-17] MEDS: HEPARIN 100 UNIT/ML 5ML FLUSH FLUSH PRN ×2 (11:04→13:12)
[2023-08-17 11:29] LABS: Ferritin 1012.5 ng/ml (8-388)
[2023-08-17 13:33] LABS: Hematocrit (blood only) 36.2 % (37.0-47.0); Hemoglobin 12.2 g/dl (12.0-16.0); Immature Granulocytes # (auto) 0.03 K/uL (0.01-0.20); Immature Granulocytes % (auto) 0.6 %; Lymphocytes # (auto) 0.49 K/uL (1.20-3.40); Lymphocytes % (auto) 9.7 %; Mean Corpuscular Hemoglobin 30.1 pg (25.0-34.0); Mean Corpuscular Hgb Conc 33.7 g/dL (32.0-36.0); Mean Corpuscular Volume 89.4 fL (80.0-100.0); Mean Platelet Volume 12.6 fL (9.4-12.4); Monocytes # (auto) 0.33 K/uL (0.11-0.59); Monocytes % (auto) 6.5 %; Neutrophils # (auto) 4.21 K/uL (1.40-6.50); Neutrophils % (auto) 83.2 %; Platelet Count 94 K/uL (130-400); RDW Coefficient of Variation 17.5 % (11.5-14.5); RDW Standard Deviation 57.3 fL (36.4-46.3); Red Blood Count 4.05 M/uL (4.20-5.40); White Blood Count 5.06 K/ul (4.8-10.8)
[2023-08-17 13:43] LABS: Albumin Globulin Ratio 0.8 (0.9-2); Albumin Level 2.7 gm/dl (3.4-5.0); BUN Creatinine Ratio 12.9 (10-20); Calcium 7.5 mg/dl (8.6-10.3); Est GFR (African American) 24.3 ml/min; Est GFR (Non-African American) 20.9 ml/min; Globulin 3.5 gm/dl (2.5-4.0); Potassium 4.3 mmol/L (3.5-5.1); Total Protein 6.2 gm/dl (6.0-8.3)
[2023-08-17 15:06] LABS: BUN Creatinine Ratio 13.1 (10-20); Calcium 7.4 mg/dl (8.6-10.3); Creatinine Clr Calc Pharmacy 20.4 ml/min; Est GFR (African American) 24.8 ml/min; Est GFR (Non-African American) 21.4 ml/min; Potassium 4.5 mmol/L (3.5-5.1)
[2023-08-17] MEDS ORDERED: ALPRAZolam 0.25 MG TABLET PO ONE (15:15)
[2023-08-18] MEDS: ALPHAGAN~ORDER AWAITING ACTION SCH ×4 (00:37→21:52)
[2023-08-18] MEDS: metroNIDAZOLE 500 MG/100 ML BAG IV SCH ×3 (00:37→16:26)
[2023-08-18 02:11] LABS: Appearance Urine Cloudy (Clear); Bacteria Urine Automated Negative (Negative); Bilirubin Urine 1+ (Negative); Blood Urine 3+ (Negative); Color Urine Dark Yellow; Glucose Urine UA Negative (Negative); Ketones Urine Trace (Negative); Leukocyte Esterase Urine 2+ (Negative); Nitrite Urine Positive (Negative); Protein Urine 2+ (Negative); Specific Gravity Urine 1.018 (1.000-1.030); Urobilinogen Urine Negative (Negative); WBC Urine Automated >30 /hpf (0-5); pH Urine 5.5 (4.5-7.5)
[2023-08-18 02:18] LABS: RBC Urine Automated 0-4 /hpf (0-4)
[2023-08-18] MEDS: CEFEPIME 1,000 MG in SYRINGE 0 ML IV SCH ×2 (04:46→16:11)
--- NOTE | 2023-08-18 07:23 | Hospitalist Progress Note ---
Date of Service August 18, 2023 Assessment & Plan (1) Gastroenteritis: (2) Anemia: (3) Coffee ground emesis: (4) Cardiomyopathy: (5) Elevated troponin: (6) Stroke-like symptoms: (7) CKD (chronic kidney disease): (8) Diabetes: (9) Intra-abdominal abscess: (10) Thrombocytopenia: (11) Hypomagnesemia: Plan Patient is a 63 y/o female with 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 Today, pt appears more confused and is harder to understand. Awaiting nephrology recommendations. Pt was not oriented this morning. Kidney function worsened 2.4 -> 2.54. IVF LR restarted. UA appears infectious but as pt is on cefepime and metronidazole already, will await culture and susceptibilities before adding another agent. Stroke-like symptoms, AMS - on admission, pt had strokelike symptoms for approximately 10 to 15 minutes (i.e. slurring of speech and word finding difficulty), appeared lethargic at one point - MRI brain 08/14 negative for acute infarct but suggestive of broad possible differential including metabolic/toxic vs infectious/inflammatory cause - Neurology consult placed, suspect clinical presentation likely metabolic in o rigin, - initially on acyclovir and steroids, which has been discontinued - difficult to tell underlying cause of her AMS and may be multifactorial hospital induced delirium vs UTI vs possible hepatorenal dysfunction UTI - urine + for nitrites, LE, WBCs, but no fever or tachycardia or WBC count - with AMS, pt is unable to say if she is having any symptoms - will await culture for susceptibilities ABILIO on CKD (chronic kidney disease) - Stable CKD stage III, baseline Cr around 1.7 - now with ABILIO with Cr this morning 2.18, pt has ABILIO - will hold fluid for now and get bladder scan and repeat BMP this afternoon Anemia - Anemia of chronic disease secondary to CKD vs acute upper GI bleed Hgb 8.9 on arrival, had 2 units PRBCs earlier this admission - Hgb stable from yesterday - given GI condition, will check ferritin and iron levels and if low, may consider IV iron in this pt Gastroenteritis - Resolved. Advance diet as tolerated. - Continue prn antiemetics and IVF. Coffee ground emesis, resolved - Patient with coffee ground emesis on 08/09/23 Has not recurred; no longer feeling nauseous; denies epigastric pain - Continue Protonix - Consulted gastroenterology: EGD (08/10/23) -- esophagitis with no bleeding was found in the lower 1/3 of the esophagus If bleeding continue from stoma, consider MRE - Would benefit from continued PPI therapy after discharge Cardiomyopathy - Large apical akinesis found on initial TTE as well as mildly reduced LV function (EF 45-50) - Cardiology consulted: Repeat TTE (08/12/23) > normal LV size and function; EF 65-70%; small area of hypokinesis in distal inferior wall > Suggests that cardiomyopathy was stress-induced instead of ischemic - Metoprolol succ 25mg Elevated troponin - Troponins in ED elevated at 66 and following increasing trend (last value 664) EKG without ST segment or T wave abnormalities, NSR in the 90s Patient wo symptoms of chest pain or left arm/jaw pain or numbness - V/Q scan to r/o PE as a cause -- Negative CTA not done due to hx of CKD - Cardiology consult placed. No ACS; increase in troponins may be due to transient LV dysfunction, TIA, or other cause Continue beta danie Diabetes - Stable. 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 Drain in place in LLQ (present since 06/11/23); ostomy also in place Was following with a colorectal surgeon as outpatient. She is on Flagyl and a cephalosporin as an outpatient. Will continue these at this time. - Consulted wound care for management of patient's abscess drain and colostomy Thrombocytopenia - Monitor CBC DVT ppx: SCDs as pt had GI bleed few days ago and is s/p 2 units PRBCs - held anticoagulation for GI bleed, hgb has been stable so will restart IVF: LR on hold after 7 days of LR at 150/hr Lines: rectal drain, colostomy, medport (right upper chest) Admission and Anticipated Discharge Date Admission Date: August 10, 2023 Supervising Physician Co-Signing Physician Notes Attending Physician Supervision Note: I independently interviewed and examined the patient and verified the amin history and physical, reviewed labs and image studies and agree with findings and care plan noted above. again, seen multiple times through the day. remembered me and said my name but speech not clear. wants to get better. comfortable in bed. speech not clear. RRR, chest clear anteriorly. abdomen soft, ostomy +. No focal neuro deficit appreciated. ABILIO on ckd - rising creatinine. No concern of infection/SIRS. acyclovir d/vadim. resume IVF after discussion with nephro. Kaminski for UO measurement. renal ultrasound - moderate left hydroureteronephrosis - review with urology. Elevated LFT - known metastatic ds. follow and further discussion about goals of care. Encephalopathy Unclear etiology. MRI with cerebellar findings that are chronic. Per neuro - presentation likely metabolic. She declined LP, continue supportive care. Normal ammonia. Was started on empiric coverage with acyclovir and steroids - with no improvement in symptoms and rise in creatinine - d/vadim Slurred speech - ED presentation and recurrent symptoms thereafter. No acute changes in MRI. consider psych consult Appendiceal cancer with stump abscess Continue antibiotics. Reports that she will not receive any further chemotherapy. nausea - persistent with poor oral intake. continue IVF. add marinol. d/c statin for concern of med side effect. Anemia EGD neg for bleeding source. ostomy with some blood stain. possible IR drain as source but not blood stain in the drain. s/p 2 units PRBC. h/h stable. CMP - Repeat echo with improved overall vent function but apical akinesis persists - Did not present with ACS symptoms. very likely stress-induced. d/c statin. continue metoprolol as tolerated. SCD Goals of care - per previous discussion with son by Dr. Encarnacion - goal would be home with hospice. Discussing with son today - he is not able to care for her at home. patient would like aggressive medical care. considering current state of her health - her overall prognosis will stay poor. Discussed with case management - they will speak with son regarding discharge planning. 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 Today, when seen this morning patient is awake and alert but does not coherently respond to any question except to deny pain. She looks around the room at random but difficult to tell if she is responding to any external stimuli. Mumbles incoherently when asked where she is or what the year is. No acute distress noted. Nursing staff state that this is how she has been all morning for them as well. Review of Systems Review of Systems: Per HPI. Physical Exam Physical Exam: General:Alert but mumbles incoherently and sluggish, no acute distress, HEENT: Normocephalic, scleral icterus noted Cardio: Regular rate and rhythm, Resp:Lungs clear to auscultation b/l, no wheezes or rhonchi, Skin: Warm, dry, Results & Data Results & Data Vital Signs (Past 12 Hours) Vital Signs Temp Pulse Pulse Resp BP Pulse Ox O2 Del Method 08/18/23 05:58 61 08/18/23 03:57 36.4 C L 72 16 119/67 99 Room Air 08/18/23 01:30 77 08/17/23 23:14 Room Air 08/17/23 22:00 36.5 C 73 18 117/69 98 Room Air Resident Activity Tracking Resident Involvement: Resident Care Provided Care Provided: Adult Hospital Medicine (7) CKD (chronic kidney disease) Chronic kidney disease stage: stage 3 (moderate) Chronic kidney disease stage 3 subtype: stage 3b (GFR 30-44) Qualified Code(s): N18.32 - Chronic kidney disease, stage 3b
[2023-08-18] MEDS: FAMOTIDINE 20 MG in SYRINGE 3 ML IV SCH ×2 (08:15→20:36)
[2023-08-18] MEDS: PANTOprazole 40 MG in SYRINGE 0 ML IV SCH ×2 (08:15→20:37)
[2023-08-18] MEDS: SUCRALFATE 1 GM/10 ML UDC PO SCH ×4 (08:21→20:38)
[2023-08-18] MEDS: ATORVASTATIN 40 MG TAB PO SCH (08:22)
[2023-08-18] MEDS: METOPROLOL SUCC 25MG EXT REL TAB PO SCH (08:22)
[2023-08-18] MEDS: CHOLECALCIFEROL 1,000 UNITS 25 MCG TAB PO SCH (08:22)
[2023-08-18] MEDS: allopurinoL 100 MG TAB PO SCH (08:22)
[2023-08-18 08:35] LABS: Hematocrit (blood only) 33.9 % (37.0-47.0); Hemoglobin 11.5 g/dl (12.0-16.0); Mean Corpuscular Hemoglobin 30.4 pg (25.0-34.0); Mean Corpuscular Hgb Conc 33.9 g/dL (32.0-36.0); Mean Corpuscular Volume 89.7 fL (80.0-100.0); Platelet Count 61 K/uL (130-400); RDW Coefficient of Variation 17.5 % (11.5-14.5); RDW Standard Deviation 57.8 fL (36.4-46.3); Red Blood Count 3.78 M/uL (4.20-5.40); White Blood Count 3.63 K/ul (4.8-10.8)
[2023-08-18 08:43] LABS: Albumin Globulin Ratio 0.8 (0.9-2); Albumin Level 2.5 gm/dl (3.4-5.0); BUN Creatinine Ratio 14.2 (10-20); Bilirubin,Total 3.4 mg/dl (0.2-1.0); Calcium 7.3 mg/dl (8.6-10.3); Creatinine Clr Calc Pharmacy 19.3 ml/min; Est GFR (African American) 22.7 ml/min; Est GFR (Non-African American) 19.5 ml/min; Globulin 3.1 gm/dl (2.5-4.0); Potassium 4.4 mmol/L (3.5-5.1); Total Protein 5.6 gm/dl (6.0-8.3)
--- NOTE | 2023-08-18 09:37 | Ultrasound Report ---
RENAL ULTRASOUND CLINICAL HISTORY: Acute renal failure. COMPARISON STUDY: CT of the abdomen and pelvis August 11, 2023. TECHNIQUE: Sonography of the kidneys and the urinary bladder was performed. FINDINGS: Incidental note is made of a right pleural effusion. As shown on CT, multiple abdominal imp lants are present. The right kidney measures 9.1 cm in maximal dimension and the left measures 9 cm. There is no right hydronephrosis. Moderate left hydroureteronephrosis is noted. This is similar to CT of August 11, 2023. A Kaminski balloon within the bladder is present. Note is made of a percutaneous drain within the previously described complex left iliopsoas fluid collection. IMPRESSION: 1. Moderate left hydroureteronephrosis, similar to CT of August 11, 2023. No right hydronephrosis. 2. Percutaneous drain within the previously described complex left iliopsoas fluid collection. ACT 112: Negative or not required by law. Electronically signed by: Dillan Buckley M.D. 08/18/2023 9:34 AM
[2023-08-18] MEDS: LACTATED RINGER'S 1,000 ML IV SCH (12:25)
[2023-08-18] MEDS ORDERED: droNABinol 2.5 MG CAP PO PRN (14:45)
--- NOTE | 2023-08-18 15:36 | Nephrology Consultation ---
Date of Consultation August 18, 2023 Assessment & Plan (1) ABILIO (acute kidney injury): (2) Metabolic acidosis: (3) Anemia: (4) Alteration in speech: (5) Gastroenteritis: (6) Intra-abdominal abscess: Plan 63-year-old female with history of metastatic appendiceal abscess, stage IIIb CKD, repeated episodes of ABILIO, admitted to the hospital with strokelike symptom, workup including MRI unremarkable. Currently getting treated for intra- abdominal abscess with cefepime, metronidazole, has drainage. Developed ABILIO and anuria over last 2 to 3 days, creatinine up to 2.5, has been almost 25 L positive. Respiratory status stable, p.o. intake remains poor with not much urine output overnight. Blood pressure was initially quite low but improved slightly. Renal imaging showed moderate left-sided hydronephrosis possibly secondary to pressure effect from abscess, no significant changes. -- Resume LR at 80 mL/h. If remain an uric, we can give a trial of diuretics but if it fails and kidney function continues to worsen, we should focus on comfort directed care. Discussed with her son Kwadwo over telephone, in agreement. Thank you for allowing me to participate in your patient's care. It was a pleasure to see Brooke.. History of Present Illness Attending Physician: Kat Gaming MD History of Present Illness Ms. Brooke Vasquez is a 63 year-old female with PMH of 3B CKD, repeated episodes of ABILIO, recurrent diffusely metastatic appendiceal carcinoma, with strokelike symptoms, gastroenteritis, anemia. Nephrology consult was requested for man agement of ABILIO and electrolyte abnormality. EMR records are reviewed in detail during patient's visit.. Brooke was admitted to [facility] on 08/08/23 after she presented with right-sided weakness and concern for stroke. Imaging on admission including MRI brain was unremarkable and considered her symptoms to be metabolic in origin. She was also getting treated for enteritis and intra-abdominal abscess with cefepime and metronidazole. CT abdomen pelvis showed some fullness seen bilateral renal pelvis and renal ultrasound this morning showed moderate left-sided hydronephrosis similar to the CT scan on . Urinalysis with proteinuria, microscopic hematuria and pyuria but no WBC. Creatinine was close to baseline on admission, 1.80 which stayed relatively stable for few days but last 3 days renal function progressively worsening, creatinine up to 2.5 this morning. Albumin 2.7. She was quite hypertensive on presentation, was on lactated Ringer's which was stopped yesterday. She has been oligoanuric over last few days and did not have much urine output overnight. Total she is almost 25 mL positive although unclear how other that was including her ostomy output. She does have a drainage for intra-abdominal abscesses as well. Has complex past medical history including history of metastatic appendiceal carcinoma s/p ileostomy. Initially diagnosed almost 10 years ago, had multiple surgery and repeated courses of aggressive chemotherapy. History of missed chemotherapy because of insurance issues several times and eventually progression of the disease leading to metastatic disease and then general decompensation with ABILIO during summer and eventually chemotherapy was stopped. She developed stump abscess and had drainage placed by IR. 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 She has been on multiple antibiotics since her admission in May including daptomycin, cefdinir and metronidazole for cultures from the abscess growing Ent erococcus faecium resistant to ampicillin. PMH also notable for ITP, anemia, a history of biliary obstruction, subtotal colectomy with ileostomy, and DMII controlled with diet. Stage IIIb CKD baseline creatinine has been around 1.7-1.8 mg/dl with repeated history of acute kidney injury, CKD most likely secondary to residual renal impairment from repeated ABILIO's. She was awake and alert this morning mostly nonverbal although she tried to say something on questioning but nothing clear. She was comfortable. Allergies Allergy/AdvReac Type Severity Reaction Status Date / Time pineapple Allergy Severe anaphylaxis Verified 08/08/23 19:59 tomato Allergy Severe hives, Verified 08/08/23 19:59 throat tightness cantaloupe Allergy Intermediate Hives Verified 08/08/23 19:59 [place] And Derivatives Allergy Intermediate hives Verified 08/08/23 19:59 clarithromycin Allergy Intermediate hives Verified 08/08/23 19:59 lemon Allergy Intermediate Hives Verified 08/08/23 19:59 lemon oil Allergy Intermediate Hives Verified 08/08/23 19:59 chemehuevi Allergy Intermediate Hives Verified 08/08/23 19:59 naproxen Allergy Intermediate hives Verified 08/08/23 19:59 orange Allergy Intermediate Hives Verified 08/08/23 19:59 orange (food color) Allergy Intermediate Hives Verified 08/08/23 19:59 orange flavor Allergy Intermediate Hives Verified 08/08/23 19:59 orange juice Allergy Intermediate Hives Verified 08/08/23 19:59 Penicillins Allergy Intermediate hives Verified 08/08/23 19:59 latex Allergy Mild rash Verified 08/08/23 19:59 Home Medications Medication Instructions Recorded Confirmed Type brimonidine 0.1 % eye drops 1 drp OPB TID 05/12/19 08/08/23 History (Alphagan P) cholecalciferol (vitamin D3) 50 2,000 unit PO QAM 05/12/19 08/08/23 History mcg (2,000 unit) capsule (Vitamin D3) latanoprost 0.005 % eye drops 1 drp OPB HS 05/12/19 08/08/23 History (Xalatan) multivitamin 1 tab PO QAM 05/12/19 08/08/23 History ondansetron HCl 8 mg tablet 8 mg PO Q8H PRN Nausea 12/18/20 08/08/23 History prochlorperazine maleate 10 mg 10 mg PO Q6 PRN Nausea 12/18/20 08/08/23 History tablet allopurinol 100 mg tablet 200 mg PO DAILY 02/17/23 08/08/23 History potassium chloride 10 mEq 10 meq PO DAILY 02/17/23 08/08/23 History capsule,extended release cefdinir 300 mg capsule 300 mg PO HS 3 weeks #21 caps 07/29/23 08/08/23 Rx metronidazole 500 mg tablet 500 mg PO Q8 3 weeks #63 tabs 07/29/23 08/08/23 Rx Patient History Medical History (Updated 08/18/23 @ 15:51 by Sharla Silva MD) Metabolic acidosis ABILIO (acute kidney injury) Alteration in speech Encounter for pre-operative examination Hypomagnesemia 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, unproven Near syncope UTI (urinary tract infection) Acute kidney injury superimposed on CKD Borderline diabetes diet controlled Chronic ITP (idiopathic thrombocytopenia) platelet WNL on 06/01/20 labs Anemia chronic, baseline hgb 9-11 range per chart review 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, chemo currently Pancreatitis post-op (2014) Mucinous adenocarcinoma of appendix (~03/2013) 2013 Hyponatremia High cholesterol Surgical History Encounter for insertion of venous access port 2012 (subsequent removal) History of laparotomy USO + salipngectomy Hx laparoscopic cholecystectomy 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 Family History Other Diabetes Heart disease Hypertension Stroke Social History Smoking Status: Never smoker Second Hand Exposure: No; Do You Dip or Chew Tobacco: No; Hx Alcohol Use: No Hx Substance Use: No Preferred Language: Kazakh Communication Ability: Effective Visual Impairment: No Limitations Internal Communications Specialist Required: No Beliefs That Will Affect Care: None marital status: Current Living Situation: Family Current Living Situation Comment: lives with son Other Information That Helps Us Care for You: No Feels Safe at Home: Yes Safety Concerns: Feels Safe At This Time Assistive Devices: Other Physical Exam Constitutional: WD/WN, vitals as above + ill appearing; no acute distress Neck: normal visual inspection Respiratory: Auscultation: lungs clear to auscultation bilaterally Cardiovascular: RRR, no murmur, no edema Skin: no rashes Neurologic: Detailed neurological exam was not possible Psychiatric: Orientation: alert Results & Data Vital Signs (Past 12 Hours) Vital Signs Temp Pulse Pulse Pulse Resp BP BP 08/18/23 15:29 36.4 C L 68 20 101/64 08/18/23 14:00 72 08/18/23 13:20 73 08/18/23 11:25 36.4 C L 67 18 123/71 08/18/23 07:30 08/18/23 07:30 36.3 C L 76 16 132/77 08/18/23 05:58 61 08/18/23 03:57 36.4 C L 72 16 119/67 Pulse Ox O2 Del Method 08/18/23 15:29 100 Room Air 08/18/23 14:00 08/18/23 13:20 08/18/23 11:25 99 Room Air 08/18/23 07:30 Room Air 08/18/23 07:30 99 Room Air 08/18/23 05:58 08/18/23 03:57 99 Room Air PG Care Time/CCT Total # of Minutes Spent Total Time Spent with Patient: Total time spent is greater than 50% in coordination of care (as documented) at patient's floor/unit and/or counseling patient: Coding Level of Care Code 83010 INT INP/OBS CARE MIN Diagnoses ABILIO (acute kidney injury) N17.9 Metabolic acidosis E87.20 Anemia D64.9 Anemia type: unspecified type Alteration in speech R47.89 Gastroenteritis K52.9 Intra-abdominal abscess K65.1 (3) Anemia Anemia type: unspecified type Qualified Code(s): D64.9 - Anemia, unspecified
[2023-08-18] MEDS: LATANOPROST 0.005% OP SOLN 2.5 ML BTL OPB SCH (20:38)
[2023-08-19] MEDS: metroNIDAZOLE 500 MG/100 ML BAG IV SCH ×2 (01:15→10:29)
[2023-08-19] MEDS: LACTATED RINGER'S 1,000 ML IV SCH ×2 (01:16→15:56)
[2023-08-19] MEDS: CEFEPIME 1,000 MG in SYRINGE 0 ML IV SCH ×2 (05:34→18:02)
[2023-08-19 06:47] LABS: Hematocrit (blood only) 34.7 % (37.0-47.0); Hemoglobin 11.7 g/dl (12.0-16.0); Mean Corpuscular Hemoglobin 30.2 pg (25.0-34.0); Mean Corpuscular Hgb Conc 33.7 g/dL (32.0-36.0); Mean Corpuscular Volume 89.7 fL (80.0-100.0); Platelet Count 57 K/uL (130-400); RDW Coefficient of Variation 17.4 % (11.5-14.5); RDW Standard Deviation 57.2 fL (36.4-46.3); Red Blood Count 3.87 M/uL (4.20-5.40); White Blood Count 5.08 K/ul (4.8-10.8)
[2023-08-19 06:53] LABS: Albumin Globulin Ratio 0.8 (0.9-2); Albumin Level 2.4 gm/dl (3.4-5.0); BUN Creatinine Ratio 15.8 (10-20); Bilirubin,Total 4.1 mg/dl (0.2-1.0); Calcium 7.4 mg/dl (8.6-10.3); Creatinine Clr Calc Pharmacy 19.2 ml/min; Est GFR (African American) 22.1 ml/min; Est GFR (Non-African American) 19.1 ml/min; Globulin 3.1 gm/dl (2.5-4.0); Potassium 4.1 mmol/L (3.5-5.1); Total Protein 5.5 gm/dl (6.0-8.3)
[2023-08-19 07:02] LABS: Basophils # (auto) 0.01 K/uL (0.00-0.20); Basophils % (auto) 0.2 %; Echinocytes 1+; Immature Granulocytes # (auto) 0.02 K/uL (0.01-0.20); Immature Granulocytes % (auto) 0.4 %; Lymphocytes # (auto) 0.33 K/uL (1.20-3.40); Lymphocytes % (auto) 6.5 %; Monocytes # (auto) 0.38 K/uL (0.11-0.59); Monocytes % (auto) 7.5 %; Neutrophils # (auto) 4.34 K/uL (1.40-6.50); Neutrophils % (auto) 85.4 %; Tear Drop Cells 1+
--- NOTE | 2023-08-19 07:06 | Hospitalist Progress Note ---
Date of Service August 19, 2023 Assessment & Plan (1) Gastroenteritis: (2) Anemia: (3) Coffee ground emesis: (4) Cardiomyopathy: (5) Elevated troponin: (6) Stroke-like symptoms: (7) CKD (chronic kidney disease): (8) Diabetes: (9) Intra-abdominal abscess: (10) Thrombocytopenia: (11) Hypomagnesemia: Plan Patient is a 63 y/o female with 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 Today, pt continues to be confused. Now pending possible placement to [facility] (referral made by CM). UA yesterday appears infectious but as pt is on cefepime and metronidazole already, will await culture and susceptibilities before adding another agent. Stroke-like symptoms, AMS - on admission, pt had strokelike symptoms for approximately 10 to 15 minutes (i.e. slurring of speech and word finding difficulty), appeared lethargic at one point - MRI brain 08/14 negative for acute infarct but suggestive of broad possible differential including metabolic/toxic vs infectious/inflammatory cause - Neurology consult placed, suspect clinical presentation likely metabolic in origin, - initially on acyclovir and steroids, which has been discontinued - difficult to tell underlying cause of her AMS and may be multifactorial hospital induced delirium vs UTI vs possible hepatorenal dysfunction UTI - urine + for nitrites, LE, WBCs, but no fever or tachycardia or WBC count - with AMS, pt is unable to say if she is having any symptoms - will await culture for susceptibilities ABILIO on CKD (chronic kidney disease) - Stable CKD stage III, baseline Cr around 1.7 - now with ABILIO with Cr this morning 2.18, pt has ABILIO - will hold fluid for now and get bladder scan and repeat BMP this afternoon Anemia - Anemia of chronic disease secondary to CKD vs acute upper GI bleed Hgb 8.9 on arrival, had 2 units PRBCs earlier this admission - Hgb stable from yesterday - given GI condition, will check ferritin and iron levels and if low, may consider IV iron in this pt Gastroenteritis - Resolved. Advance diet as tolerated. - Continue prn antiemetics and IVF. Coffee ground emesis, resolved - Patient with coffee ground emesis on 08/09/23 Has not recurred; no longer feeling nauseous; denies epigastric pain - Continue Protonix - Consulted gastroenterology: EGD (08/10/23) -- esophagitis with no bleeding was found in the lower 1/3 of the esophagus If bleeding continue from stoma, consider MRE - Would benefit from continued PPI therapy after discharge Cardiomyopathy - Large apical akinesis found on initial TTE as well as mildly reduced LV function (EF 45-50) - Cardiology consulted: Repeat TTE (08/12/23) > normal LV size and function; EF 65-70%; small area of hypokinesis in distal inferior wall > Suggests that cardiomyopathy was stress-induced instead of ischemic - Metoprolol succ 25mg Elevated troponin - Troponins in ED elevated at 66 and following increasing trend (last value 664) EKG without ST segment or T wave abnormalities, NSR in the 90s Patient wo symptoms of chest pain or left arm/jaw pain or numbness - V/Q scan to r/o PE as a cause -- Negative CTA not done due to hx of CKD - Cardiology consult placed. No ACS; increase in troponins may be due to transient LV dysfunction, TIA, or other cause Continue beta danie Diabetes - Stable. 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 Drain in place in LLQ (present since 06/11/23); ostomy also in place Was following with a colorectal surgeon as outpatient. She is on Flagyl and a cephalosporin as an outpatient. Will continue these at this time. - Consulted wound care for management of patient's abscess drain and colostomy Thrombocytopenia - Monitor CBC DVT ppx: SCDs as pt had GI bleed few days ago and is s/p 2 units PRBCs - held anticoagulation for GI bleed, hgb has been stable so will restart IVF: LR on hold after 7 days of LR at 150/hr Lines: rectal drain, colostomy, medport (right upper chest), joyce Admission and Anticipated Discharge Date Admission Date: August 10, 2023 Supervising Physician Co-Signing Physician Notes ATTESTATION I also saw the patient and confirmed amin portions of the history and exam. I agree with the impression and plan in the resident documentation, and as summarized below. Upon my exam midmorning, the patient is sleeping but awakens to voice. Very briefly open eyes; denies pain. Minimal communication this morning. EXAM 114/70, 77, 17, 36.3, heart percent room air Heart regular rate and rhythm Lungs clear with nonlabored respirations DATA Labs Hemoglobin 11.7, platelet count 57 Sodium 136, potassium 4.1, BUN 41, creatinine 2.59 AST 61, ALT 12, alkaline phosphatase 669 Micro Urine culture collected 08/18/2023 demonstrates gram positive cocci, speciation and sensitivity pending IMPRESSION & PLAN acute kidney injury Anuric for > 24 hours LR remains running at 80 MLS per hour Trend BMP Encephalopathy Unclear etiology, suspect metabolic secondary to known metastatic disease Neurology consultation appreciated Patient declined LP Continue supportive care Appendiceal cancer with stump abscess Marked elevation in alkaline phosphatase consistent with diagnosis Additional per resident documentation Subjective Patient is a 63 y/o female with 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 Today, pt once again noted to be incoherent. Today she was able to say words like "orange" and "teeth" and denied pain when prompted, but other than yes or no questions, difficult to get any meaningful information from her. No acute distress. No overnight events. Review of Systems Review of Systems: Per HPI. Physical Exam Physical Exam: General:Alert but mumbles incoherently and sluggish, no acute distress, HEENT: Normocephalic, scleral icterus noted Cardio: Regular rate and rhythm, Resp:Lungs clear to auscultation b/l, no wheezes or rhonchi, Skin: Warm, dry, Results & Data Results & Data Vital Signs (Past 12 Hours) Vital Signs Temp Pulse Pulse Resp BP Pulse Ox O2 Del Method 08/19/23 03:00 36.4 C L 75 18 128/72 99 Room Air 08/18/23 22:58 Room Air 08/18/23 22:05 75 08/18/23 22:00 36.4 C L 72 18 128/75 100 Room Air Resident Activity Tracking Resident Involvement: Resident Care Provided Care Provided: Adult Hospital Medicine (7) CKD (chronic kidney disease) Chronic kidney disease stage: stage 3 (moderate) Chronic kidney disease stage 3 subtype: stage 3b (GFR 30-44) Qualified Code(s): N18.32 - Chronic kidney disease, stage 3b
[2023-08-19] MEDS: ALPHAGAN~ORDER AWAITING ACTION SCH ×3 (10:28→23:57)
[2023-08-19] MEDS: PANTOprazole 40 MG in SYRINGE 0 ML IV SCH ×2 (10:32→20:17)
[2023-08-19] MEDS: FAMOTIDINE 20 MG in SYRINGE 3 ML IV SCH ×2 (10:38→22:14)
--- NOTE | 2023-08-19 10:41 | Nephrology Progress Note ---
Date of Service August 19, 2023 Assessment & Plan (1) ABILIO (acute kidney injury): (2) Metabolic acidosis: (3) Anemia: (4) Alteration in speech: (5) Gastroenteritis: (6) Intra-abdominal abscess: Plan 63-year-old female with history of metastatic appendiceal abscess, stage IIIb CKD, repeated episodes of ABILIO, admitted to the hospital with strokelike symptom, workup including MRI unremarkable. Currently getting treated for intra- abdominal abscess with cefepime, metronidazole, has drainage. Developed ABILIO and anuria over last 2 to 3 days, creatinine up to 2.5, has been almost 25 L positive. Respiratory status stable, p.o. intake remains poor with not much urine output overnight. Blood pressure was initially quite low but improved slightly. Renal imaging showed moderate left-sided hydronephrosis possibly secondary to pressure effect from abscess, no significant changes. --Ok to continue on maintenance IV fluid LR at 80 mL/h. as she has been anuric >24 h, expect kidney function to continue to worsen. If any respiratory distress, Ok to try a dose of Lasix but we should focus on comfort directed care. Admission and Anticipated Discharge Date Admission Date: August 10, 2023 Raisa Cox was seen and evaluated. She was lethargic, but tried to open eyes and answer q but no meaningful conversation. Remain anuria for >24 h. Review of Systems Review of Systems: Unobtainable due to reduced consciousness Physical Exam Constitutional: WD/WN, vitals as above + ill appearing; no acute distress Respiratory: no respiratory distress Auscultation: no diminished lung sounds Cardiovascular: Rate/Rhythm: regular rate and regular rhythm Extremities: + edema Skin: no rashes Neurologic: Detailed neurological exam was not possible Results & Data Vital Signs (Past 12 Hours) Vital Signs Temp Pulse Resp BP BP Pulse Ox O2 Del Method 08/19/23 07:53 36.9 C 77 18 146/65 H 97 Room Air 08/19/23 03:00 36.4 C L 75 18 128/72 99 Room Air 08/18/23 22:58 Room Air PG Care Time/CCT Total # of Minutes Spent Total Time Spent with Patient: Total time spent is greater than 50% in coordination of care (as documented) at patient's floor/unit and/or counseling patient: Coding Level of Care Code 92643 SUB INP/OBS CARE 2/35MIN Diagnoses ABILIO (acute kidney injury) N17.9 Metabolic acidosis E87.20 Anemia D64.9 Anemia type: unspecified type Alteration in speech R47.89 Gastroenteritis K52.9 Intra-abdominal abscess K65.1 (3) Anemia Anemia type: unspecified type Qualified Code(s): D64.9 - Anemia, unspecified
[2023-08-19] MEDS: SUCRALFATE 1 GM/10 ML UDC PO SCH ×4 (11:02→20:16)
[2023-08-19] MEDS: METOPROLOL SUCC 25MG EXT REL TAB PO SCH (11:02)
[2023-08-19] MEDS: allopurinoL 100 MG TAB PO SCH (11:02)
[2023-08-19] MEDS: CHOLECALCIFEROL 1,000 UNITS 25 MCG TAB PO SCH (11:02)
[2023-08-19] MEDS ORDERED: HYDROmorphone INJ 0.5 MG/0.5 ML SYR IV ONE (19:40)
[2023-08-19] MEDS: LATANOPROST 0.005% OP SOLN 2.5 ML BTL OPB SCH (20:16)
[2023-08-20] MEDS: LACTATED RINGER'S 1,000 ML IV SCH (04:14)
[2023-08-20] MEDS: CEFEPIME 1,000 MG in SYRINGE 0 ML IV SCH (05:26)
[2023-08-20 06:30] LABS: Albumin Globulin Ratio 0.8 (0.9-2); Albumin Level 2.2 gm/dl (3.4-5.0); BUN Creatinine Ratio 17.9 (10-20); Bilirubin,Total 4.6 mg/dl (0.2-1.0); Calcium 7.5 mg/dl (8.6-10.3); Creatinine Clr Calc Pharmacy 19.7 ml/min; Est GFR (African American) 22.9 ml/min; Est GFR (Non-African American) 19.7 ml/min; Globulin 2.8 gm/dl (2.5-4.0)
[2023-08-20 06:52] LABS: Echinocytes 2+; Eosinophils # (auto) 0.01 K/uL (0.00-0.50); Eosinophils % (auto) 0.2 %; Hematocrit (blood only) 32.8 % (37.0-47.0); Hemoglobin 10.8 g/dl (12.0-16.0); Immature Granulocytes # (auto) 0.01 K/uL (0.01-0.20); Immature Granulocytes % (auto) 0.2 %; Lymphocytes # (auto) 0.33 K/uL (1.20-3.40); Lymphocytes % (auto) 6.3 %; Mean Corpuscular Hgb Conc 32.9 g/dL (32.0-36.0); Mean Corpuscular Volume 91.1 fL (80.0-100.0); Monocytes # (auto) 0.32 K/uL (0.11-0.59); Monocytes % (auto) 6.1 %; Neutrophils # (auto) 4.56 K/uL (1.40-6.50); Neutrophils % (auto) 87.2 %; Platelet Count 41 K/uL (130-400); Platelet Estimate Decreased (Normal); Polychromasia 2+; RDW Coefficient of Variation 17.6 % (11.5-14.5); White Blood Count 5.23 K/ul (4.8-10.8)
--- NOTE | 2023-08-20 07:15 | Hospitalist Progress Note ---
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 Today, pt still not oriented. Pending possible placement to [facility] (referral made by CM). Will stop fluids as pt appears to be more edematous today so concerned for fluid overload. Will add prn morphine IV for pain. UA yesterday appears infectious but as pt is on cefepime and metronidazole already, will await culture and susceptibilities before adding another agent. Stroke-like symptoms, AMS - on admission, pt had strokelike symptoms for approximately 10 to 15 minutes (i.e. slurring of speech and word finding difficulty), appeared lethargic at one point - MRI brain 08/14 negative for acute infarct but suggestive of broad possible differential including metabolic/toxic vs infectious/inflammatory cause - Neurology consult placed, suspect clinical presentation likely metabolic in origin, - initially on acyclovir and steroids, which has been discontinued - difficult to tell underlying cause of her AMS and may be multifactorial hospi tristian induced delirium vs UTI vs possible hepatorenal dysfunction UTI - urine + for nitrites, LE, WBCs, but no fever or tachycardia or WBC count - with AMS, pt is unable to say if she is having any symptoms - will await culture for susceptibilities ABILIO on CKD (chronic kidney disease) - Stable CKD stage III, baseline Cr around 1.7 - now with ABILIO with Cr this morning 2.18, pt has ABILIO - will hold fluid for now and get bladder scan and repeat BMP this afternoon Anemia - Anemia of chronic disease secondary to CKD vs acute upper GI bleed Hgb 8.9 on arrival, had 2 units PRBCs earlier this admission - Hgb stable from yesterday - given GI condition, will check ferritin and iron levels and if low, may consider IV iron in this pt Gastroenteritis - Resolved. Advance diet as tolerated. - Continue prn antiemetics and IVF. Coffee ground emesis, resolved - Patient with coffee ground emesis on 08/09/23 Has not recurred; no longer feeling nauseous; denies epigastric pain - Continue Protonix - Consulted gastroenterology: EGD (08/10/23) -- esophagitis with no bleeding was found in the lower 1/3 of the esophagus If bleeding continue from stoma, consider MRE - Would benefit from continued PPI therapy after discharge Cardiomyopathy - Large apical akinesis found on initial TTE as well as mildly reduced LV function (EF 45-50) - Cardiology consulted: Repeat TTE (08/12/23) > normal LV size and function; EF 65-70%; small area of hypokinesis in distal inferior wall > Suggests that cardiomyopathy was stress-induced instead of ischemic - Metoprolol succ 25mg Elevated troponin - Troponins in ED elevated at 66 and following increasing trend (last value 664) EKG without ST segment or T wave abnormalities, NSR in the 90s Patient wo symptoms of chest pain or left arm/jaw pain or numbness - V/Q scan to r/o PE as a cause -- Negative CTA not done due to hx of CKD - Cardiology consult placed. No ACS; increase in troponins may be due to transient LV dysfunction, TIA, or other cause Continue beta danie Diabetes - Stable. 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 Drain in place in LLQ (present since 06/11/23); ostomy also in place Was following with a colorectal surgeon as outpatient. She is on Flagyl and a cephalosporin as an outpatient. Will continue these at this time. - Consulted wound care for management of patient's abscess drain and colostomy Thrombocytopenia - Monitor CBC DVT ppx: SCDs as pt had GI bleed few days ago and is s/p 2 units PRBCs - held anticoagulation for GI bleed, hgb has been stable so will restart IVF: LR on hold after 7 days of LR at 150/hr Lines: rectal drain, colostomy, medport (right upper chest), joyce Admission and Anticipated Discharge Date Admission Date: August 10, 2023 Supervising Physician Co-Signing Physician Notes ATTESTATION I also saw the patient and confirmed amin portions of the history and exam. I agree with the impression and plan in the resident documentation, and as summarized below. Upon my exam midmorning, the patient is sleeping but awakens to voice. Pain in legs to my palpation. She nods yes to generalized pain. EXAM 98/55, 56, afebrile Heart regular rate and rhythm Lungs clear with nonlabored respirations LE with developing edema, tenderness; no erythema DATA Labs Hemoglobin 10.8, platelet count 41 creatinine 2.52 AST 75, alkaline phosphatase 641 Micro Urine culture collected 08/18/2023 demonstrates gram positive cocci, speciation and sensitivity pending IMPRESSION & PLAN acute kidney injury Anuric for > 24 hours Discontinue IVF Lasix if indicated for comfort Encephalopathy Unclear etiology, suspect metabolic secondary to known metastatic disease Neurology consultation appreciated Patient declined LP Continue supportive care Appendiceal cancer with stump abscess Marked elevation in alkaline phosphatase consistent with diagnosis Plan is for inpatient hospice at [facility] With noted pain, add morphine 1mg q 4 hours, titrate as needed Additional per resident documentation Subjective Patient is a 63 y/o female with 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 Today, pt maintains being hard to understand and not oriented. Different today, however, she complains of pain by just saying words like "pain" "ow" and "hurts". When prompted to show where it hurts, she holds her hands over her ostomy, which appears intact with watery stool drainage. When pressing on her legs, she yells in pain. No other complaints from the patient. No acute overnight events noted. Review of Systems Review of Systems: Per HPI. Physical Exam Physical Exam: General:Alert but mumbles incoherently and sluggish, no acute distress, HEENT: Normocephalic, scleral icterus noted still Cardio: Regular rate and rhythm, Resp:Lungs clear to auscultation b/l, Ext: Lower extremity edema noted, worse than yesterday and exquisitly painful Skin: Warm, dry, Results & Data Results & Data Vital Signs (Past 12 Hours) Vital Signs Temp Pulse Pulse Resp BP Pulse Ox O2 Del Method 08/20/23 02:45 36.0 C L 91 H 18 114/65 100 Room Air 08/20/23 01:06 73 08/19/23 23:58 Room Air 08/19/23 23:38 35.8 C L 95 H 18 130/70 99 Room Air 08/19/23 21:00 Room Air Resident Activity Tracking Resident Involvement: Resident Care Provided Care Provided: Adult Hospital Medicine (7) CKD (chronic kidney disease) Chronic kidney disease stage: stage 3 (moderate) Chronic kidney disease stage 3 subtype: stage 3b (GFR 30-44) Qualified Code(s): N18.32 - Chronic kidney disease, stage 3b
[2023-08-20] MEDS: PANTOprazole 40 MG in SYRINGE 0 ML IV SCH ×2 (08:38→21:53)
[2023-08-20] MEDS: FAMOTIDINE 20 MG in SYRINGE 3 ML IV SCH (08:38)
[2023-08-20] MEDS ORDERED: MoRPHine SULFATE 2 MG/ML CARP IV PRN (10:29)
[2023-08-20] MEDS: METOPROLOL SUCC 25MG EXT REL TAB PO SCH (10:31)
[2023-08-20] MEDS: allopurinoL 100 MG TAB PO SCH (10:31)
[2023-08-20] MEDS: CHOLECALCIFEROL 1,000 UNITS 25 MCG TAB PO SCH (10:31)
[2023-08-20] MEDS: SUCRALFATE 1 GM/10 ML UDC PO SCH ×4 (10:31→20:32)
--- NOTE | 2023-08-20 10:38 | Nephrology Progress Note ---
Date of Service August 20, 2023 Assessment & Plan (1) ABILIO (acute kidney injury): (2) Metabolic acidosis: (3) Anemia: (4) Alteration in speech: (5) Gastroenteritis: (6) Intra-abdominal abscess: Plan 63-year-old female with history of metastatic appendiceal abscess, stage IIIb CKD, repeated episodes of ABILIO, admitted to the hospital with strokelike symptom, workup including MRI unremarkable. Currently getting treated for intra- abdominal abscess with cefepime, metronidazole, has drainage. Developed ABILIO and anuria over last 2 to 3 days, creatinine up to 2.5, has been almost 25 L positive. Respiratory status stable, p.o. intake remains poor with not much urine output overnight. Blood pressure was initially quite low but improved slightly. Renal imaging showed moderate left-sided hydronephrosis possibly secondary to pressure effect from abscess, no significant changes. Clinically continues to decline, lethargic and minimally responsive. Remains an uric for last 2 days however surprisingly electrolyte has been acceptable and creatinine relatively stable. --Ok to continue on maintenance IV fluid LR at 80 mL/h. If any respiratory distress, Ok to try a dose of Lasix but we should focus on comfort directed care. Will sign off. Admission and Anticipated Discharge Date Admission Date: August 10, 2023 Raisa Cox was seen and evaluated. She was lethargic, but responded with pain when touched, but otherwise looked comfortable. Remain anuria for last 2 days but electrolytes acceptable. Review of Systems Review of Systems: Unobtainable due to reduced consciousness Physical Exam Constitutional: WD/WN, vitals as above + ill appearing and + lethargic; no acute distress Respiratory: no respiratory distress Auscultation: no diminished lung sounds Cardiovascular: Rate/Rhythm: regular rate and regular rhythm Extremities: + edema Skin: no rashes Results & Data Vital Signs (Past 12 Hours) Vital Signs Temp Pulse Pulse Resp BP Pulse Ox O2 Del Method 08/20/23 08:15 97 H 08/20/23 02:45 36.0 C L 91 H 18 114/65 100 Room Air 08/20/23 01:06 73 08/19/23 23:58 Room Air 08/19/23 23:38 35.8 C L 95 H 18 130/70 99 Room Air PG Care Time/CCT Total # of Minutes Spent Total Time Spent with Patient: Total time spent is greater than 50% in coordination of care (as documented) at patient's floor/unit and/or counseling patient: Coding Level of Care Code 76984 SUB INP/OBS CARE Diagnoses ABILIO (acute kidney injury) N17.9 Metabolic acidosis E87.20 Anemia D64.9 Anemia type: unspecified type Alteration in speech R47.89 Gastroenteritis K52.9 Intra-abdominal abscess K65.1 (3) Anemia Anemia type: unspecified type Qualified Code(s): D64.9 - Anemia, unspecified
[2023-08-20] MEDS ORDERED: MoRPHine SULFATE 2 MG/ML CARP IV STA (11:00)
[2023-08-20] MEDS: ONDANSETRON INJ 2 MG/ML 2 ML VIAL IV PRN (11:12)
--- NOTE | 2023-08-20 15:37 | Communication Note ---
Date of Service: August 20, 2023 Was able to contact the son via phone this afternoon. Discussed with him how the patient has done so far this week with looking okay and being oriented Thursday, with then steady decline in her condition to now not eating, being asleep most of the time and largely incoherent. Informed him she did complain this morning of pain so we did give her some IV morphine. Also explained that she has been largely anuric the last 2 days and electrolytes and Cr have stayed stable but if continuing to not make urine will eventually worsen. He does not want dialysis for her. Explained to him her urine is also now growing bacteria that may be difficult to treat as she is anuric. Also noted fluids were stopped due to worsening LE swelling that was causing her pain. Ultimately, asked him what his goals are for her and he states that he wants her to be comfortable and for us to only treat her if we feel it would make a significant difference on her quality of life. Explicitly electing comfort care at this time and would like placement to a facility with hospice after discharge here. Informed he can let us know anytime if there are changes in his wishes for her and from now on we will focus on keeping her comfortable. He is in agreement. He states he may try to stop over tomorrow. Advised to let us know if there is anything else we can do for him and if he arrives he can let the nursing staff know so that I can come up to talk with him further if desired. Case management made aware that he would like her to go to a facility with hospice, so hopefully a bed could be found for her sooner at [facility].
[2023-08-20] MEDS ORDERED: ONDANSETRON INJ 2 MG/ML 2 ML VIAL IV PRN (19:28)
[2023-08-20] MEDS ORDERED: LORazepam 0.5 MG TAB PO PRN (19:28)
[2023-08-20] MEDS ORDERED: LORazepam 0.5 MG in SYRINGE 0.25 ML IV PRN (19:28)
[2023-08-20] MEDS: MoRPHine SULFATE 2 MG/ML CARP IV PRN (19:56)
[2023-08-20] MEDS: LATANOPROST 0.005% OP SOLN 2.5 ML BTL OPB SCH ×2 (20:31→20:32)
[2023-08-21] MEDS: MoRPHine SULFATE 2 MG/ML CARP IV PRN (02:08)
--- NOTE | 2023-08-21 06:49 | Hospitalist Progress Note ---
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 Today, pt is comfort care still. Son stated on the phone yesterday that he may come visit this afternoon and advised to let us know if he wants to talk while he is here. Pt appears sleepy but comfortable at this time. Prn morphine and ativan in place for her. Will downgrade to medsurg. This pt is currently comfort care only. Stroke-like symptoms, AMS - on admission, pt had strokelike symptoms for approximately 10 to 15 minutes (i.e. slurring of speech and word finding difficulty), appeared lethargic at one point - MRI brain 08/14 negative for acute infarct but suggestive of broad possible differential including metabolic/toxic vs infectious/inflammatory cause - Neurology consult placed, suspect clinical presentation likely metabolic in origin, - initially on acyclovir and steroids, which has been discontinued - difficult to tell underlying cause of her AMS and may be multifactorial hospital induced delirium vs UTI vs possible hepatorenal dysfunction UTI - urine + for nitrites, LE, WBCs, but no fever or tachycardia or WBC count - with AMS, pt is unable to say if she is having any symptoms - will await culture for susceptibilities ABILIO on CKD (chronic kidney disease) - Stable CKD stage III, baseline Cr around 1.7 - now with ABILIO with Cr this morning 2.18, pt has ABILIO - will hold fluid for now and get bladder scan and repeat BMP this afternoon Anemia - Anemia of chronic disease secondary to CKD vs acute upper GI bleed Hgb 8.9 on arrival, had 2 units PRBCs earlier this admission - Hgb stable from yesterday - given GI condition, will check ferritin and iron levels and if low, may consider IV iron in this pt Gastroenteritis - Resolved. Advance diet as tolerated. - Continue prn antiemetics and IVF. Coffee ground emesis, resolved - Patient with coffee ground emesis on 08/09/23 Has not recurred; no longer feeling nauseous; denies epigastric pain - Continue Protonix - Consulted gastroenterology: EGD (08/10/23) -- esophagitis with no bleeding was found in the lower 1/3 of the esophagus Cardiomyopathy - Large apical akinesis found on initial TTE as well as mildly reduced LV function (EF 45-50) - Cardiology consulted: Repeat TTE (08/12/23) > normal LV size and function; EF 65-70%; small area of hypokinesis in distal inferior wall > Suggests that cardiomyopathy was stress-induced instead of ischemic - Metoprolol succ 25mg Elevated troponin - Troponins in ED elevated at 66 and following increasing trend (last value 664) EKG without ST segment or T wave abnormalities, NSR in the 90s Patient wo symptoms of chest pain or left arm/jaw pain or numbness - V/Q scan to r/o PE as a cause -- Negative CTA not done due to hx of CKD - Cardiology consult placed. No ACS; increase in troponins may be due to transient LV dysfunction, TIA, or other cause Continue beta danie Diabetes - Stable. 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 Drain in place in LLQ (present since 06/11/23); ostomy also in place Was following with a colorectal surgeon as outpatient. She is on Flagyl and a cephalosporin as an outpatient. Will continue these at this time. - Consulted wound care for management of patient's abscess drain and colostomy Thrombocytopenia - Monitor CBC DVT ppx: SCDs as pt had GI bleed few days ago and is s/p 2 units PRBCs - held anticoagulation for GI bleed, hgb has been stable so will restart Lines: rectal drain, colostomy, medport (right upper chest), joyce Admission and Anticipated Discharge Date Admission Date: August 10, 2023 Supervising Physician Co-Signing Physician Notes I personally examined the patient and verified amin points of history and exam, discussed case, and agree with decision making and plan documented by Dr. Moreira. Prognosis poor. Spoke to patient's son Kwadwo who agrees to morphine for pain control for comfort care. 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 Today, pt yet again continues to be altered. Did not open her eyes today but did move her head back and forth slightly when asked if she was in any pain. No acute distress, as she is resting comfortably. She is comfort measures only at this point in time and has prn morphine on. Does not appear in any pain at this time. Review of Systems Review of Systems: Per HPI. Physical Exam Physical Exam: General:Does not open her eyes but eyelids flutter to sound, appears comfortable, without acute distress or pain Cardio: Regular rate and rhythm, Resp:Poor air movement with rhonchi Ext: Lower extremity edema noted once again Skin: Warm, dry, Results & Data Results & Data Vital Signs (Past 12 Hours) Vital Signs Temp Pulse Resp BP Pulse Ox O2 Del Method 08/20/23 22:58 Room Air 08/20/23 19:27 35.8 C L 95 H 18 122/65 98 Room Air (7) CKD (chronic kidney disease) Chronic kidney disease stage: stage 3 (moderate) Chronic kidney disease stage 3 subtype: stage 3b (GFR 30-44) Qualified Code(s): N18.32 - Chronic kidney disease, stage 3b
[2023-08-21] MEDS: PANTOprazole 40 MG in SYRINGE 0 ML IV SCH ×2 (10:00→20:31)
[2023-08-21] MEDS: METOPROLOL SUCC 25MG EXT REL TAB PO SCH (10:03)
[2023-08-21 10:05] LABS: Albumin Globulin Ratio 0.9 (0.9-2); Albumin Level 2.4 gm/dl (3.4-5.0); BUN Creatinine Ratio 17.7 (10-20); Bilirubin,Total 5.2 mg/dl (0.2-1.0); Calcium 7.9 mg/dl (8.6-10.3); Creatinine Clr Calc Pharmacy 16.9 ml/min; Est GFR (Non-African American) 16.4 ml/min; Globulin 2.7 gm/dl (2.5-4.0); Potassium 3.9 mmol/L (3.5-5.1); Total Protein 5.1 gm/dl (6.0-8.3)
[2023-08-21 10:20] LABS: Anisocytosis Present; Basophils # (auto) 0.01 K/uL (0.00-0.20); Basophils % (auto) 0.1 %; Echinocytes 2+; Eosinophils # (auto) 0.03 K/uL (0.00-0.50); Eosinophils % (auto) 0.4 %; Hematocrit (blood only) 30.9 % (37.0-47.0); Hemoglobin 10.3 g/dl (12.0-16.0); Immature Granulocytes # (auto) 0.04 K/uL (0.01-0.20); Immature Granulocytes % (auto) 0.5 %; Lymphocytes # (auto) 0.44 K/uL (1.20-3.40); Lymphocytes % (auto) 5.3 %; Mean Corpuscular Hemoglobin 30.3 pg (25.0-34.0); Mean Corpuscular Hgb Conc 33.3 g/dL (32.0-36.0); Mean Corpuscular Volume 90.9 fL (80.0-100.0); Monocytes # (auto) 0.53 K/uL (0.11-0.59); Monocytes % (auto) 6.4 %; Neutrophils # (auto) 7.24 K/uL (1.40-6.50); Neutrophils % (auto) 87.3 %; Platelet Count 40 K/uL (130-400); Platelet Estimate Decreased (Normal); Polychromasia 2+; RDW Coefficient of Variation 18.1 % (11.5-14.5); RDW Standard Deviation 59.5 fL (36.4-46.3); White Blood Count 8.29 K/ul (4.8-10.8)
[2023-08-21] MEDS: SUCRALFATE 1 GM/10 ML UDC PO SCH (10:26)
[2023-08-21] MEDS: allopurinoL 100 MG TAB PO SCH (10:26)
[2023-08-21] MEDS: MoRPHine SULFATE 2 MG/ML CARP IV SCH (19:40)
[2023-08-22] MEDS: MoRPHine SULFATE 2 MG/ML CARP IV SCH ×7 (00:44→23:13)
--- NOTE | 2023-08-22 07:01 | Hospitalist Progress Note ---
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 Pt was started on scheduled morphine last night. Appears comfortable at this time. Continue comfort measures. This pt is currently comfort care only. Stroke-like symptoms, AMS - on admission, pt had strokelike symptoms for approximately 10 to 15 minutes (i.e. slurring of speech and word finding difficulty), appeared lethargic at one point - MRI brain 08/14 negative for acute infarct but suggestive of broad possible differential including metabolic/toxic vs infectious/inflammatory cause - Neurology consult placed, suspect clinical presentation likely metabolic in origin, - initially on acyclovir and steroids, which has been discontinued - difficult to tell underlying cause of her AMS and may be multifactorial hospital induced delirium vs UTI vs possible hepatorenal dysfunction - continues UTI - urine + for nitrites, LE, WBCs, but no fever or tachycardia or WBC count - with AMS, pt is unable to say if she is having any symptoms - culture grew E faecalis but deferring tx at this time, as pt is comfort only ABILIO on CKD (chronic kidney disease) - Stable CKD stage III, baseline Cr around 1.7 - now with ABILIO with Cr this morning 2.18, pt has ABILIO - no longer tracking as pt is now comfort care, continue joyce Anemia Thrombocytopenia - Anemia of chronic disease secondary to CKD vs acute upper GI bleed vs both Hgb 8.9 on arrival, had 2 units PRBCs earlier this admission - Hgb no longer being checked, as pt is comfort only Cardiomyopathy - Large apical akinesis found on initial TTE as well as mildly reduced LV function (EF 45-50) - Cardiology consulted: Repeat TTE (08/12/23) > normal LV size and function; EF 65-70%; small area of hypokinesis in distal inferior wall > Suggests that cardiomyopathy was stress-induced instead of ischemic - Metoprolol succ 25mg Diabetes - Stable. 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 Drain in place in LLQ (present since 06/11/23); ostomy also in place Was following with a colorectal surgeon as outpatient. - Consulted wound care for management of patient's abscess drain and colostomy - s/p IV ABs, no further ABs needed and pt now comfort care Other conditions during this admission that have now resolved or are no longer being followed but can be noted in previous notes: elevated trop, gastroenteritis, coffee-ground emesis, Lines: rectal drain, colostomy, medport (right upper chest), joyce Admission and Anticipated Discharge Date Admission Date: August 10, 2023 Supervising Physician Co-Signing Physician Notes I personally examined the patient and verified amin points of history and exam, discussed case, and agree with decision making and plan documented by Dr. Moreira. Patient resting in bed, not responsive. Comfort care active. Awaiting beds for inpatient hospice. 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 Today, pt opens eyes to sound but eyes do not track. When asked questions today, she does not even attempt to give a verbal response. Otherwise appears comfortable and goes back to sleep easily. No acute distress. Review of Systems Review of Systems: Per HPI. Physical Exam Physical Exam: General:Opens her eyes to sound, but does not attempt to respond to questions, appears comfortable at this time HEENT: dry oral mucosa Cardio: Regular rhythm but slightly tachycardic today 98 on auscultation, Resp:Poor air movement with rhonchi noted again today, no increased work of breathing Ext: Lower extremity edema noted once again, no worse than yesterday, legs warm and dry Skin: Warm, dry, Results & Data Results & Data Vital Signs (Past 12 Hours) Vital Signs O2 Del Method 08/21/23 20:00 Room Air Resident Activity Tracking Resident Involvement: Resident Care Provided Care Provided: Adult Hospital Medicine (7) CKD (chronic kidney disease) Chronic kidney disease stage: stage 3 (moderate) Chronic kidney disease stage 3 subtype: stage 3b (GFR 30-44) Qualified Code(s): N18.32 - Chronic kidney disease, stage 3b
[2023-08-22] MEDS: PANTOprazole 40 MG in SYRINGE 0 ML IV SCH ×2 (07:27→19:52)
[2023-08-22] MEDS: METOPROLOL SUCC 25MG EXT REL TAB PO SCH (08:08)
[2023-08-22] MEDS: GLYCOPYRROLATE 0.2 MG/ML VIAL IV PRN ×2 (12:09→23:13)
[2023-08-22] MEDS: HEPARIN 100 UNIT/ML 5ML FLUSH FLUSH PRN ×2 (16:13→16:14)
[2023-08-22] MEDS: LATANOPROST 0.005% OP SOLN 2.5 ML BTL OPB SCH (19:53)
[2023-08-23] MEDS: MoRPHine SULFATE 2 MG/ML CARP IV SCH ×6 (03:22→23:22)
--- NOTE | 2023-08-23 07:05 | Hospitalist Progress Note ---
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 Today, continue comfort measures. Called son Kwadwo to inform him pt has been moved since she was downgraded to comfort only. He states he plans to stop by today maybe around 1 pm or so. Told him that if he would like to chat with us about anything to let the nurse know when he gets here to let us know he is here. He had no questions or complaints at this time. This pt is currently comfort care only. Stroke-like symptoms, AMS - on admission, pt had strokelike symptoms for approximately 10 to 15 minutes (i.e. slurring of speech and word finding difficulty), appeared lethargic at one point - MRI brain 08/14 negative for acute infarct but suggestive of broad possible differential including metabolic/toxic vs infectious/inflammatory cause - Neurology consult placed, suspect clinical presentation likely metabolic in origin, - initially on acyclovir and steroids, which has been discontinued - difficult to tell underlying cause of her AMS and may be multifactorial hospital induced delirium vs UTI vs possible hepatorenal dysfunction - continues UTI - urine + for nitrites, LE, WBCs, but no fever or tachycardia or WBC count - with AMS, pt is unable to say if she is having any symptoms - culture grew E faecalis but deferring tx at this time, as pt is comfort only ABILIO on CKD (chronic kidney disease) - Stable CKD stage III, baseline Cr around 1.7 - now with ABILIO with Cr this morning 2.18, pt has ABILIO - no longer tracking as pt is now comfort care, continue joyce Anemia Thrombocytopenia - Anemia of chronic disease secondary to CKD vs acute upper GI bleed vs both Hgb 8.9 on arrival, had 2 units PRBCs earlier this admission - Hgb no longer being checked, as pt is comfort only Cardiomyopathy - Large apical akinesis found on initial TTE as well as mildly reduced LV function (EF 45-50) - Cardiology consulted: Repeat TTE (08/12/23) > normal LV size and function; EF 65-70%; small area of hypokinesis in distal inferior wall > Suggests that cardiomyopathy was stress-induced instead of ischemic - Metoprolol succ 25mg Diabetes - Stable. 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 Drain in place in LLQ (present since 06/11/23); ostomy also in place Was following with a colorectal surgeon as outpatient. - Consulted wound care for management of patient's abscess drain and colostomy - s/p IV ABs, no further ABs needed and pt now comfort care Other conditions during this admission that have now resolved or are no longer being followed but can be noted in previous notes: elevated trop, gastroenteritis, coffee-ground emesis, Lines: rectal drain, colostomy, medport (right upper chest), joyce Admission and Anticipated Discharge Date Admission Date: August 10, 2023 Supervising Physician Co-Signing Physician Notes I personally examined the patient and verified amin points of history and exam, discussed case, and agree with decision making and plan documented by Dr. Moreira. Patient not responsive to voice commands, resting peacefully in bed, comfort care active. Awaiting beds for inpatient hospice. 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 Today, pt has her eyes open and looking about the room. Appears comfortable at this time. No acute signs of distress. Does not attempt any verbal responses. Review of Systems Review of Systems: Per HPI. Physical Exam Physical Exam: General:Awake with eyes open, looking around, no acute distress, nonverbal today HEENT: dry oral mucosa, obvious scleral icterus noted Cardio: Regular rhythm but tachycardic Resp:Poor air movement with rhonchi noted again today, perhaps worse than yesterday Ext: Lower extremity edema noted once again, legs warm and dry Skin: Warm, dry, Results & Data Results & Data Vital Signs (Past 12 Hours) Vital Signs O2 Del Method 08/22/23 22:11 Room Air Resident Activity Tracking Resident Involvement: Resident Care Provided Care Provided: Adult Hospital Medicine (7) CKD (chronic kidney disease) Chronic kidney disease stage: stage 3 (moderate) Chronic kidney disease stage 3 subtype: stage 3b (GFR 30-44) Qualified Code(s): N18.32 - Chronic kidney disease, stage 3b
[2023-08-23] MEDS: METOPROLOL SUCC 25MG EXT REL TAB PO SCH (07:38)
[2023-08-23] MEDS: PANTOprazole 40 MG in SYRINGE 0 ML IV SCH ×2 (07:43→19:49)
[2023-08-23] MEDS: LATANOPROST 0.005% OP SOLN 2.5 ML BTL OPB SCH (19:52)
[2023-08-24] MEDS: MoRPHine SULFATE 2 MG/ML CARP IV SCH ×11 (03:18→23:52)
[2023-08-24] MEDS: LORazepam 0.5 MG in SYRINGE 0.25 ML IV PRN (04:04)
--- NOTE | 2023-08-24 07:08 | Hospitalist Progress Note ---
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 Today, continue comfort measures. No changes today. 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 This pt is currently comfort care only. Stroke-like symptoms, AMS - on admission, pt had strokelike symptoms for approximately 10 to 15 minutes (i.e. slurring of speech and word finding difficulty), appeared lethargic at one point - MRI brain 08/14 negative for acute infarct but suggestive of broad possible differential including metabolic/toxic vs infectious/inflammatory cause - Neurology consult placed, suspect clinical presentation likely metabolic in origin, - initially on acyclovir and steroids, which has been discontinued - difficult to tell underlying cause of her AMS and may be multifactorial hospital induced delirium vs UTI vs possible hepatorenal dysfunction - continues UTI - urine + for nitrites, LE, WBCs, but no fever or tachycardia or WBC count - with AMS, pt is unable to say if she is having any symptoms - culture grew E faecalis but deferring tx at this time, as pt is comfort only ABILIO on CKD (chronic kidney disease) - Stable CKD stage III, baseline Cr around 1.7 - now with ABILIO with Cr this morning 2.18, pt has ABILIO - no longer tracking as pt is now comfort care, continue joyce Anemia Thrombocytopenia - Anemia of chronic disease secondary to CKD vs acute upper GI bleed vs both Hgb 8.9 on arrival, had 2 units PRBCs earlier this admission - Hgb no longer being checked, as pt is comfort only Cardiomyopathy - Large apical akinesis found on initial TTE as well as mildly reduced LV function (EF 45-50) - Cardiology consulted: Repeat TTE (08/12/23) > normal LV size and function; EF 65-70%; small area of hypokinesis in distal inferior wall > Suggests that cardiomyopathy was stress-induced instead of ischemic - Metoprolol succ 25mg Diabetes - Stable. 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 Drain in place in LLQ (present since 06/11/23); ostomy also in place Was following with a colorectal surgeon as outpatient. - Consulted wound care for management of patient's abscess drain and colostomy - s/p IV ABs, no further ABs needed and pt now comfort care Other conditions during this admission that have now resolved or are no longer being followed but can be noted in previous notes: elevated trop, gastroenteritis, coffee-ground emesis, Lines: rectal drain, colostomy, medport (right upper chest), joyce Admission and Anticipated Discharge Date Admission Date: August 10, 2023 Supervising Physician Co-Signing Physician Notes I personally examined the patient and verified all amin points of history and exam, discussed case, and agree with decision making with Dr Moreira no meaningful HPI review of systems obtainable. In discussion with resident physician earlier in her stay after transition to comfort care she had appeared quite uncomfortable. Fortunately does not now. Vitals noted, in general she is sleeping comfortably does not appear uncomfortable. Breathing unlabored no accessory muscles. Appendiceal cancercomfort measures only. Otherwise as above. 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 Today, appears comfortable sleeping in bed. Unable to get her to give verbal responses so left to rest. No acute distress. Review of Systems Review of Systems: Per HPI. Physical Exam Physical Exam: General:Asleep today, no verbal responses given when nudged to awaken HEENT: dry oral mucosa, Cardio: Regular rhythm but tachycardic Resp:Poor air movement with rhonchi noted again today, perhaps worse than yesterday again Ext: Lower extremity edema noted once again, legs warm and dry today Skin: Warm, dry, Results & Data Results & Data Vital Signs (Past 12 Hours) Vital Signs O2 Del Method 08/23/23 20:56 Room Air Resident Activity Tracking Resident Involvement: Resident Care Provided Care Provided: Adult Hospital Medicine (7) CKD (chronic kidney disease) Chronic kidney disease stage: stage 3 (moderate) Chronic kidney disease stage 3 subtype: stage 3b (GFR 30-44) Qualified Code(s): N18.32 - Chronic kidney disease, stage 3b
[2023-08-24] MEDS: METOPROLOL SUCC 25MG EXT REL TAB PO SCH (07:14)
[2023-08-24] MEDS: PANTOprazole 40 MG in SYRINGE 0 ML IV SCH ×2 (07:59→20:05)
[2023-08-24] MEDS: GLYCOPYRROLATE 0.2 MG/ML VIAL IV PRN (14:49)
--- NOTE | 2023-08-24 18:17 | Billing Data ---
Date of Service August 24, 2023 Coding Level of Care Code 60243 SUB INP/OBS CARE
[2023-08-24] MEDS: LATANOPROST 0.005% OP SOLN 2.5 ML BTL OPB SCH (20:04)
[2023-08-25] MEDS: MoRPHine SULFATE 2 MG/ML CARP IV SCH ×12 (02:01→23:36)
[2023-08-25] MEDS: GLYCOPYRROLATE 0.2 MG/ML VIAL IV PRN (02:05)
--- NOTE | 2023-08-25 07:05 | Hospitalist Progress Note ---
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 Today, continue comfort measures. No changes today. Hopefully may get hosp[facility] bed at [facility] if a bed opens up. This pt is currently comfort care only. Stroke-like symptoms, AMS - on admission, pt had strokelike symptoms for approximately 10 to 15 minutes (i.e. slurring of speech and word finding difficulty), appeared lethargic at one point - MRI brain 08/14 negative for acute infarct but suggestive of broad possible differential including metabolic/toxic vs infectious/inflammatory cause - Neurology consult placed, suspect clinical presentation likely metabolic in origin, - initially on acyclovir and steroids, which has been discontinued - difficult to tell underlying cause of her AMS and may be multifactorial hospital induced delirium vs UTI vs possible hepatorenal dysfunction UTI - urine + for nitrites, LE, WBCs, but no fever or tachycardia or WBC count - with AMS, pt is unable to say if she is having any symptoms - culture grew E faecalis but deferring tx at this time, as pt is comfort only ABILIO on CKD (chronic kidney disease) - Stable CKD stage III, baseline Cr around 1.7 - now with ABILIO with Cr this morning 2.18, pt has ABILIO - no longer tracking as pt is now comfort care, continue joyce Anemia Thrombocytopenia - Anemia of chronic disease secondary to CKD vs acute upper GI bleed vs both Hgb 8.9 on arrival, had 2 units PRBCs earlier this admission - Hgb no longer being checked, as pt is comfort only Cardiomyopathy - Large apical akinesis found on initial TTE as well as mildly reduced LV function (EF 45-50) - Cardiology consulted: Repeat TTE (08/12/23) > normal LV size and function; EF 65-70%; small area of hypokinesis in distal inferior wall > Suggests that cardiomyopathy was stress-induced instead of ischemic - Metoprolol succ 25mg Diabetes - Stable. 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 Drain in place in LLQ (present since 06/11/23); ostomy also in place Was following with a colorectal surgeon as outpatient. - Consulted wound care for management of patient's abscess drain and colostomy - s/p IV ABs, no further ABs needed and pt now comfort care Other conditions during this admission that have now resolved or are no longer being followed but can be noted in previous notes: elevated trop, gastroenteritis, coffee-ground emesis, Lines: rectal drain, colostomy, medport (right upper chest), joyce Admission and Anticipated Discharge Date Admission Date: August 10, 2023 Supervising Physician Co-Signing Physician Notes I personally examined the patient and verified all amin points of history and exam, discussed case, and agree with decision making with Dr Moreira no meaningful HPI review of systems obtainable. appears comfortable. Fortunately does not now. Vitals noted, in general she is sleeping comfortably does not appear uncomfortable. Breathing unlabored no accessory muscles. Appendiceal cancercomfort measures only. appearing comfortable, continue current care Otherwise as above. 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 Today, pt did not open her eyes for me this morning. No acute distress, resting in bed. Appears comfortable. Review of Systems Review of Systems: Per HPI. Physical Exam Physical Exam: General:Somnolent, did not open eyes today HEENT: dry oral mucosa, Cardio: Regular rhythm but tachycardic Resp:Poor air movement with rhonchi noted again today, perhaps worse than yesterday again Ext: Lower extremity edema noted once again, legs warm Skin: Warm, dry, Resident Activity Tracking Resident Involvement: Resident Care Provided Care Provided: Adult [facility] Medicine (7) CKD (chronic kidney disease) Chronic kidney disease stage: stage 3 (moderate) Chronic kidney disease stage 3 subtype: stage 3b (GFR 30-44) Qualified Code(s): N18.32 - Chronic kidney dise ase, stage 3b
[2023-08-25] MEDS: PANTOprazole 40 MG in SYRINGE 0 ML IV SCH ×2 (08:28→20:33)
[2023-08-25] MEDS: METOPROLOL SUCC 25MG EXT REL TAB PO SCH (08:29)
--- NOTE | 2023-08-25 12:44 | Billing Data ---
Date of Service August 25, 2023 Coding Level of Care Code 82866 SUB INP/OBS CARE
[2023-08-25] MEDS: LATANOPROST 0.005% OP SOLN 2.5 ML BTL OPB SCH (20:33)
[2023-08-26] MEDS: MoRPHine SULFATE 2 MG/ML CARP IV SCH ×12 (01:38→23:55)
--- NOTE | 2023-08-26 07:13 | Hospitalist Progress Note ---
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 Today, continue comfort measures. No changes today. This pt is currently comfort care only. Stroke-like symptoms, AMS - on admission, pt had strokelike symptoms for approximately 10 to 15 minutes (i.e. slurring of speech and word finding difficulty), appeared lethargic at one point - MRI brain 08/14 negative for acute infarct but suggestive of broad possible differential including metabolic/toxic vs infectious/inflammatory cause - Neurology consult placed, suspect clinical presentation likely metabolic in or igin, - initially on acyclovir and steroids, which has been discontinued - difficult to tell underlying cause of her AMS and may be multifactorial hospital induced delirium vs UTI vs possible hepatorenal dysfunction UTI - urine + for nitrites, LE, WBCs, but no fever or tachycardia or WBC count - with AMS, pt is unable to say if she is having any symptoms - culture grew E faecalis but deferring tx at this time, as pt is comfort only ABILIO on CKD (chronic kidney disease) - Stable CKD stage III, baseline Cr around 1.7 - now with ABILIO with Cr this morning 2.18, pt has ABILIO - no longer tracking as pt is now comfort care, continue joyce Anemia Thrombocytopenia - Anemia of chronic disease secondary to CKD vs acute upper GI bleed vs both Hgb 8.9 on arrival, had 2 units PRBCs earlier this admission - Hgb no longer being checked, as pt is comfort only Cardiomyopathy - Large apical akinesis found on initial TTE as well as mildly reduced LV function (EF 45-50) - Cardiology consulted: Repeat TTE (08/12/23) > normal LV size and function; EF 65-70%; small area of hypokinesis in distal inferior wall > Suggests that cardiomyopathy was stress-induced instead of ischemic - Metoprolol succ 25mg Diabetes - Stable. 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 Drain in place in LLQ (present since 06/11/23); ostomy also in place Was following with a colorectal surgeon as outpatient. - Consulted wound care for management of patient's abscess drain and colostomy - s/p IV ABs, no further ABs needed and pt now comfort care Other conditions during this admission that have now resolved or are no longer being followed but can be noted in previous notes: elevated trop, gastroenteritis, coffee-ground emesis, Lines: rectal drain, colostomy, medport (right upper chest), joyce Admission and Anticipated Discharge Date Admission Date: August 10, 2023 Supervising Physician Co-Signing Physician Notes I personally examined the patient and verified all amin points of history and exam, discussed case, and agree with decision making with Dr Moreira no meaningful HPI review of systems obtainable. appears comfortable. Vitals noted, in general she is sleeping comfortably does not appear uncomfortable. Breathing unlabored no accessory muscles. Appendiceal cancercomfort measures only. appearing comfortable, continue current care. no changes at this time. 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 Today, continues to once again not open her eyes or verbally respond to questions. Resting comfortably in bed today, no acute distress noted. Review of Systems Review of Systems: Per HPI. Physical Exam Physical Exam: General:Somnolent, did not open eyes today HEENT: dry oral mucosa, Cardio: Regular rhythm but tachycardic Resp:Poor air movement with rhonchi noted, no increased work of breathing noted Ext: Lower extremity edema noted once again, legs warm Skin: Warm, dry, Results & Data Results & Data Vital Signs (Past 12 Hours) Vital Signs O2 Del Method 08/25/23 20:30 Room Air Resident Activity Tracking Resident Involvement: Resident Care Provided Care Provided: Adult [facility] Medicine (7) CKD (chronic kidney disease) Chronic kidney disease stage: stage 3 (moderate) Chronic kidney disease stage 3 subtype: stage 3b (GFR 30-44) Qualified Code(s): N18.32 - Chronic kidney disease, stage 3b
[2023-08-26] MEDS: PANTOprazole 40 MG in SYRINGE 0 ML IV SCH ×2 (07:43→21:47)
[2023-08-26] MEDS: HEPARIN 100 UNIT/ML 5ML FLUSH FLUSH PRN ×8 (07:44→23:55)
[2023-08-26] MEDS: METOPROLOL SUCC 25MG EXT REL TAB PO SCH (09:17)
--- NOTE | 2023-08-26 15:18 | Billing Data ---
Date of Service August 26, 2023 Coding Level of Care Code 29671 SUB INP/OBS CARE
[2023-08-26] MEDS: LATANOPROST 0.005% OP SOLN 2.5 ML BTL OPB SCH (22:36)
[2023-08-27] MEDS: MoRPHine SULFATE 2 MG/ML CARP IV SCH ×12 (01:50→23:31)
[2023-08-27] MEDS: HEPARIN 100 UNIT/ML 5ML FLUSH FLUSH PRN ×5 (03:36→22:18)
--- NOTE | 2023-08-27 06:55 | Hospitalist Progress Note ---
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 Today, continue comfort measures. No changes today. This pt is currently comfort care only. Stroke-like symptoms, AMS - on admission, pt had strokelike symptoms for approximately 10 to 15 minutes (i.e. slurring of speech and word finding difficulty), appeared lethargic at one point - MRI brain 08/14 negative for acute infarct but suggestive of broad possible differential including metabolic/toxic vs infectious/inflammatory cause - Neurology consult placed, suspect clinical presentation likely metabolic in or igin, - initially on acyclovir and steroids, which has been discontinued - difficult to tell underlying cause of her AMS and may be multifactorial hospital induced delirium vs UTI vs possible hepatorenal dysfunction UTI - urine + for nitrites, LE, WBCs, but no fever or tachycardia or WBC count - with AMS, pt is unable to say if she is having any symptoms - culture grew E faecalis but deferring tx at this time, as pt is comfort only ABILIO on CKD (chronic kidney disease) - Stable CKD stage III, baseline Cr around 1.7 - now with ABILIO with Cr this morning 2.18, pt has ABILIO - no longer tracking as pt is now comfort care, continue joyce Anemia Thrombocytopenia - Anemia of chronic disease secondary to CKD vs acute upper GI bleed vs both Hgb 8.9 on arrival, had 2 units PRBCs earlier this admission - Hgb no longer being checked, as pt is comfort only Cardiomyopathy - Large apical akinesis found on initial TTE as well as mildly reduced LV function (EF 45-50) - Cardiology consulted: Repeat TTE (08/12/23) > normal LV size and function; EF 65-70%; small area of hypokinesis in distal inferior wall > Suggests that cardiomyopathy was stress-induced instead of ischemic - Metoprolol succ 25mg Diabetes - Stable. 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 Drain in place in LLQ (present since 06/11/23); ostomy also in place Was following with a colorectal surgeon as outpatient. - Consulted wound care for management of patient's abscess drain and colostomy - s/p IV ABs, no further ABs needed and pt now comfort care Other conditions during this admission that have now resolved or are no longer being followed but can be noted in previous notes: elevated trop, gastroenteritis, coffee-ground emesis, Lines: rectal drain, colostomy, medport (right upper chest), joyce Admission and Anticipated Discharge Date Admission Date: August 10, 2023 Supervising Physician Co-Signing Physician Notes I personally examined the patient and verified all amin points of history and exam, discussed case, and agree with decision making with Dr Moreira no meaningful HPI review of systems obtainable. appears comfortable nursing notes that she appears comfortable except when moved/repositioned. Vitals noted, in general she is sleeping comfortably does not appear uncomfortable. Breathing unlabored no accessory muscles. new noted large R facial droop. Appendiceal cancercomfort measures only. appearing comfortable, continue current care/is comfort measures only. no changes at this time. 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 Today, pt appears comfortable. Still nonverbal. No acute distress. Review of Systems Review of Systems: Per HPI. Physical Exam Physical Exam: General:Somnolent, did not open eyes today, right sided facial droop noted HEENT: dry oral mucosa, Resp: no increased work of breathing noted Ext: Lower extremity edema noted once again, legs warm Skin: Warm, dry, Results & Data Results & Data Vital Signs (Past 12 Hours) Vital Signs O2 Del Method 08/26/23 23:16 Room Air Resident Activity Tracking Resident Involvement: Resident Care Provided Care Provided: Adult [facility] Medicine (7) CKD (chronic kidney disease) Chronic kidney disease stage: stage 3 (moderate) Chronic kidney disease stage 3 subtype: stage 3b (GFR 30-44) Qualified Code(s): N18.32 - Chronic kidney disease, stage 3b
[2023-08-27] MEDS: METOPROLOL SUCC 25MG EXT REL TAB PO SCH (08:49)
[2023-08-27] MEDS: PANTOprazole 40 MG in SYRINGE 0 ML IV SCH ×2 (09:39→21:18)
--- NOTE | 2023-08-27 13:03 | Billing Data ---
Date of Service August 27, 2023 Coding Level of Care Code 63690 SUB INP/OBS CARE
[2023-08-27] MEDS: LORazepam 0.5 MG in SYRINGE 0.25 ML IV PRN (18:05)
[2023-08-27] MEDS: GLYCOPYRROLATE 0.2 MG/ML VIAL IV PRN (18:05)
[2023-08-27] MEDS: LATANOPROST 0.005% OP SOLN 2.5 ML BTL OPB SCH (21:18)
[2023-08-28] MEDS: MoRPHine SULFATE 2 MG/ML CARP IV SCH ×3 (01:24→07:03)
[2023-08-28] MEDS: HEPARIN 100 UNIT/ML 5ML FLUSH FLUSH PRN (03:24)
--- NOTE | 2023-08-28 06:16 | Death Pronouncement Note ---
Date of Service August 28, 2023 Pronouncement Note Admission Date Admission Date: August 10, 2023 Date and Time of Date of : 08/28/23 Time of : 05:50 Contributing Factors (1) Gastroenteritis: (2) Anemia: (3) Coffee ground emesis: (4) Cardiomyopathy: (5) Elevated troponin: (6) Stroke-like symptoms: (7) CKD (chronic kidney disease): (8) Diabetes: (9) Intra-abdominal abscess: (10) Thrombocytopenia: (11) Hypomagnesemia: Additional Data Confirmation of : no pulse, no respirations, no heart sounds and pupils fixed and dilated Family: contacted Attending/PCP notified?: Yes Attending physician: Alfonso Encarnacion DO Resident Activity Tracking Resident Involvement: Resident Care Provided Care Provided: Adult Hospital Medicine
--- NOTE | 2023-08-28 06:17 | Communication Note ---
Date of Service: August 28, 2023 I was called to pronounce the of Brooke Vasquez ( 1960) by nurse on 08/28/2023. Upon entering the room, patient was found to be in a terminal state. They were unresponsive to, and did not withdraw from verbal or tactile stimuli. They were unresponsive to corneal, pupillary, and oculocephalic reflexes. On cardiopulmonary exam, they were found to be without detectable carotid pulses, and without spontaneous heart tones or respirations. Time of was pronounced by me on 08/28/2023 at 0550. Attending physician was notified. Next of kin was notified by nurse. Resident Activity Tracking Resident Involvement: Resident Care Provided Care Provided: Adult Hospital Medicine
--- NOTE | 2023-08-28 07:30 | Discharge Summary ---
Date of Service August 28, 2023 Admission HPI Per Admitting Provider This is a pleasant 63-year-old black female who around 330 this afternoon had approximately 10-minute episode where she had some slurred speech some trouble finding words a "funny feeling in her head ". The patient denied any chest pain or shortness of breath whatsoever during her episode. She was asymptomatic by the time she arrived to the ER. Pertinent positive/negative laboratory studies and imaging studies in the ER included the following: Noncontrast CT of the brain was nonacute negative. Labs showed chronic anemia with a hemoglobin of 8.9 g/dL potassium mildly suppressed at 3.3 calcium chronically low at 8.1 corrected calcium I suspect is normal for her albumin alkaline phosphatase chronically elevated at 669 and AST at 58 with a total bilirubin of 3.0 this is all chronic for the patient she does have cancer she currently has a percutaneous rectal tube drainage due to rectal abscess secondary to GI malignancy. Currently on antibiotic therapy at home in the form of Flagyl and Cefdinir. Her baseline troponin appears to be around 12-17. This troponin was 66. Her EKG however was completely normal as normal sinus rhythm with no acute ST-T abnormalities with ventricular rate approximately 90 beats per Course in the emergency department the patient was ordered Plavix. However immediately upon swallowing her Plavix she regurgitated it into a bag. I spoke to the ER doctor Plavix was ordered due to her naproxen allergy. I personally spoke with the patient she has a naproxen "allergy" secondary to her chronic kidney disease. She has taken aspirin and tolerated it in the past. Therefore we will order 325 mg of aspirin x 1 now we have ordered the stroke protocol MRI of the brain and carotid ultrasounds. Will do serial troponins. Due to echocardiogram. The patient is completely asymptomatic at the time my exam as documented below Admission Exam Per Admitting Provider In general: This is a pleasant 63-year-old black female who is alert and oriented x 3, exam she interacts appropriately presently she has no complaints she feels that she is at her baseline health status and functional status curre ntly. HEENT: Normocephalic atraumatic pupils are equal round and reactive to light bilaterally. No scleral icterus no conjunctival injection external auditory canals are patent septum is in the midline nose is without discharge oral mucosa is pink and moist without lesion. NECK: Supple no rigidity no lymphadenopathy no thyromegaly no carotid bruits no JVD no masses. HEART: Regular rate and rhythm I do not appreciate any ectopy or rub. No murmur. LUNGS: Clear to auscultation bilaterally and anteriorly with no evidence of adventitious sounds/wheezes rales or rhonchi. ABDOMEN: Soft nontender, no rebound, no peritoneal signs, positive bowel sounds, no appreciable organomegaly. Colostomy noted. Draining stool. In addition the pelvic drain in place secondary to rectal abscess. EXTREMITIES: Intact, no peripheral cyanosis, clubbing or edema. Strength is 5 out of 5 in extremities x3, she does have decree strength in her left lower extremity again this is subacute to chronic for her she has 4 out of 5 strength of the left leg, no pathological reflexes. NEUROLOGICAL: Cranial nerves II through XII are grossly intact with no focal deficit elicited upon examination. No tremor. No loss in sensation to fine pinprick in her extremities x 4. Principal Diagnosis Metastatic cancer, acute renal failure, acute respiratory failure Discharge Exam I was not present for the pronouncement of this pt's . Discharge Data Allergies Allergy/AdvReac Type Severity Reaction Status Date / Time pineapple Allergy Severe anaphylaxis Verified 08/08/23 19:59 tomato Allergy Severe hives, Verified 08/08/23 19:59 throat tightness cantaloupe Allergy Intermediate Hives Verified 08/08/23 19:59 Minkler And Derivatives Allergy Intermediate hives Verified 08/08/23 19:59 clarithromycin Allergy Intermediate hives Verified 08/08/23 19:59 lemon Allergy Intermediate Hives Verified 08/08/23 19:59 lemon oil Allergy Intermediate Hives Verified 08/08/23 19:59 [place] Allergy Intermediate Hives Verified 08/08/23 19:59 naproxen Allergy Intermediate hives Verified 08/08/23 19:59 orange Allergy Intermediate Hives Verified 08/08/23 19:59 orange (food color) Allergy Intermediate Hives Verified 08/08/23 19:59 orange flavor Allergy Intermediate Hives Verified 08/08/23 19:59 orange juice Allergy Intermediate Hives Verified 08/08/23 19:59 Penicillins Allergy Intermediate hives Verified 08/08/23 19:59 latex Allergy Mild rash Verified 08/08/23 19:59 Consultations 08/08/23 19:12 ED Decision to Admit Stat 08/09/23 05:56 Consult Cardiology Routine 08/09/23 11:57 Consult Gastroenterology Routine 08/12/23 11:12 Consult Neurology Routine 08/17/23 15:43 Consult Nephrology Routine Procedures Performed Operation Date: 08/10/23 19:15 <No data on this case meets the specified criteria> Ordered Studies 08/08/23 17:59 CT head/brain wo con Stat 08/08/23 19:51 MR brain wo con Stat US carotid doppler BI Stat 08/09/23 06:18 US leg [US venous doppler LE BI] Routine 08/11/23 17:31 CT abd pelvis oral con only Routine 08/14/23 12:31 MRI Brain [MR brain wo con] Stat 08/18/23 18:29 US renal/blad retro comp Routine Hospital Course (1) Gastroenteritis: (2) Anemia: (3) Coffee ground emesis: (4) Cardiomyopathy: (5) Elevated troponin: (6) Stroke-like symptoms: (7) CKD (chronic kidney disease): (8) Diabetes: (9) Intra-abdominal abscess: (10) Thrombocytopenia: (11) Hypomagnesemia: Plan Patient is a 63 y/o female with 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 Pt was placed on comfort care starting on 08/20/23 after discussion with son Kwadwo due to worsening condition. Pt remained on comfort measures until 08/28/2023 when she . Pronounced on 08/28/23 at 0550. Family notified by nurse. Stroke-like symptoms, AMS - on admission, pt had strokelike symptoms for approximately 10 to 15 minutes (i.e. slurring of speech and word finding difficulty), appeared lethargic at one point - MRI brain 08/14 negative for acute infarct but suggestive of broad possible differential including metabolic/toxic vs infectious/inflammatory cause - Neurology consult placed, suspect clinical presentation likely metabolic in origin, - initially on acyclovir and steroids, which has been discontinued - difficult to tell underlying cause of her AMS and may be multifactorial hospital induced delirium vs UTI vs possible hepatorenal dysfunction UTI - urine + for nitrites, LE, WBCs, but no fever or tachycardia or WBC count - with AMS, pt is unable to say if she is having any symptoms - culture grew E faecalis but deferring tx at this time, as pt is comfort only ABILIO on CKD (chronic kidney disease) - Stable CKD stage III, baseline Cr around 1.7 - now with ABILIO with Cr this morning 2.18, pt has ABILIO - no longer tracking as pt is now comfort care, continue joyce Anemia Thrombocytopenia - Anemia of chronic disease secondary to CKD vs acute upper GI bleed vs both Hgb 8.9 on arrival, had 2 units PRBCs earlier this admission - Hgb no longer being checked, as pt is comfort only Cardiomyopathy - Large apical akinesis found on initial TTE as well as mildly reduced LV function (EF 45-50) - Cardiology consulted: Repeat TTE (08/12/23) > normal LV size and function; EF 65-70%; small area of hypokinesis in distal inferior wall > Suggests that cardiomyopathy was stress-induced instead of ischemic - Metoprolol succ 25mg Diabetes - Stable. 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 Drain in place in LLQ (present since 06/11/23); ostomy also in place Was following with a colorectal surgeon as outpatient. - Consulted wound care for management of patient's abscess drain and colostomy - s/p IV ABs, no further ABs needed and pt now comfort care Other conditions during this admission that have now resolved or are no longer being followed but can be noted in previous notes: elevated trop, gastroenteritis, coffee-ground emesis, Lines: rectal drain, colostomy, medport (right upper chest), joyce Total Time Total Time Spent Total Time Spent (In Minutes): <30 Discharge Plan Discharge Items Patient Disposition: Other Date/Time: 08/28/23 05:50 Supervising Physician Co-Signing Physician Notes I personally examined the patient and verified all amin points of history and exam, discussed case, and agree with decision making with Dr Moreira pt passed. appeared at peace. later was able to visit with son kwadwo, offered empathy and support. Appendiceal cancercomfort measures only. passed. offered empathy and support to son. Resident Activity Tracking Resident Involvement: Resident Care Provided Care Provided: Adult [facility] Medicine
--- NOTE | 2023-08-28 20:12 | Billing Data ---
Date of Service August 28, 2023 Coding Level of Care Code 29233 IN/OBS DISCH 30 MIN/LESS
== END 2023-08-28 13:23 | disposition expired | DRG 377 ==
LOC: ED 17:46 → 1E 17:46 → SUATTDRO 19:50 → 1E 21:01 → SUATTDRO 08-10 14:03 → 2S 08-10 17:29 → 2W 08-14 10:38 → 3E 08-22 12:21